=== PATIENT | female | born 1980 | race Caucasian/White ===

== ENCOUNTER 2024-01-15 20:25 | Emergency (ER) | payer OTHER, SELFPAY ==
[2024-01-15 20:29] VITALS: BP 108/84; PULSE 115; TEMP 37; O2SAT 97; BMI 33.5
--- NOTE | 2024-01-15 20:36 | XR_ITS ---
The [address] [address] Patient Name: JADA GRANADOS MRN: [id number] date: 1980 Sex: F Assigned Patient Location: ED.MAIN Current Patient Location: ED.MAIN Accession/Order Number: [id number] Exam Date: 01/15/2024 21:08 Report Date: 01/15/2024 22:47 At the request of: OSCAR KUHN Procedure: XR chest 1V EXAM: XR chest 1V HISTORY: Hyperglycemia COMPARISON: None FINDINGS/IMPRESSION: 1. Lungs are clear 2. No pneumothorax. No pleural effusion. 3. Heart size and mediastinal contours are normal 4. No acute osseous abnormality 5. Upper abdominal bowel gas pattern is nonspecific. Electronically authenticated by: ERIKA MADRID Date: 01/15/2024 22:47
--- NOTE | 2024-01-15 20:36 | ECG_ITS ---
The [facility] Test Date: 2024-01-15 Pat Name: JADA GRANADOS Department: Room: - Gender: Female Front Desk Team Member: : 1980 Requested By: Order Number: [id number] Reading MD: DEONTE LI Measurements Intervals [place] Rate: 97 P: 61 [place]: 152 QRS: 88 QRSD: 70 T: 60 QT: 338 QTc: 393 Interpretive Statements 1100 Sinus rhythm 9110 normal ECG No previous ECG available for comparison Electronically Signed On 01-16-2024 8:06:06 EDT by DEONTE LI
--- NOTE | 2024-01-15 20:38 | ED_ITS ---
HPI HPI - General Adult General Chief complaint: Abdominal Pain Stated complaint: HYPERGLYCEMIA, KIDNEY PROBLEMS Time Seen by Provider: 01/15/24 20:30 Source: patient Mode of arrival: walk-in Limitations: no limitations History of Present Illness HPI narrative: 43-year-old female presents for elevated blood sugar. She has been having this for several days despite taking her medication. Her back has been hurting and she is worried she might have a UTI. 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 No fever or chest pain or shortness of breath. No diarrhea. Related Data Home Medications ?Medication ?Instructions ?Recorded ?Confirmed dulaglutide 0.75 mg/0.5 mL 0.75 mg subcut QWEEK 01/15/24 01/15/24 subcutaneous pen injector (Trulicity) finerenone 20 mg tablet (Kerendia) 20 mg PO DAILY 01/15/24 01/15/24 insulin aspart U-100 100 unit/mL 1 sliding scale dose subcut 01/15/24 01/15/24 subcutaneous solution (Novolog USEASDIRECTD U-100 Insulin aspart) insulin glargine 100 unit/mL 30 unit subcut QPM 01/15/24 01/15/24 subcutaneous cartridge Allergies Allergy/AdvReac Type Severity Reaction Status Date / Time codeine AdvReac Intermediate Rash Verified 01/15/24 20:29 Opioid HPI Opioid Management Most Recent Opioid Data: No Data to Display Review of Systems ROS Narrative A ten point review of systems is negative except as noted above. Positive for polyuria and polydipsia Exam Narrative Exam Narrative: Nurses note and vital signs reviewed and patient is not hypoxic. General: The patient appears well and in no apparent distress. Patient is resting comfortably on cart. Skin: Warm, dry, no pallor noted. There is no rash noted. Head: Normocephalic, atraumatic Eye: Normal conjunctiva, no drainage Ears, Nose, Mouth, and Throat: oral mucosa is slightly dry. Nares patent. Cardiovascular: Regular Rate and Rhythm, mild tachycardia Respiratory: Patient is in no distress, no accessory muscle use, lungs are clear to auscultation, no wheezing, rales or rhonchi Back: non-tender GI: Soft and no apparent tenderness Musculoskeletal: The patient has no evidence of calf tenderness, no pitting edema, symmetrical pulses noted bilaterally Neurological: A&O, normal speech Psychiatric: Cooperative Constitutional Vital Signs, click to edit/add: Last Vital Signs Temp 98.6 F 01/15/24 20:29 Pulse 92 H 01/15/24 22:17 Resp 18 01/15/24 22:17 BP 113/75 01/15/24 22:17 Pulse Ox 95 01/15/24 22:17 O2 Del Method Room Air 01/15/24 20:29 Course Vital Signs Vital signs: Vital Signs Temperature 98.6 F 01/15/24 20:29 Pulse Rate 115 H 01/15/24 20:29 Respiratory Rate 18 01/15/24 20:29 Blood Pressure 108/84 01/15/24 20:29 Pulse Oximetry 97 01/15/24 20:29 Oxygen Delivery Method Room Air 01/15/24 20:29 Temperature 98.6 F 01/15/24 20:29 Pulse Rate 92 H 01/15/24 22:17 Respiratory Rate 18 01/15/24 22:17 Blood Pressure 113/75 01/15/24 22:17 Pulse Oximetry 95 01/15/24 22:17 Oxygen Delivery Method Room Air 01/15/24 20:29 Medical Decision Making MDM Narrative Medical decision making narrative: The patient presented with hyperglycemia. It is improved with IV fluids and IV regular insulin. No evidence of an infection. It turns out that she has been out of her long lasting insulin because her insurance company will not fill it until January 29. She is going to contact her PCP and her insurance company. Treatment diagnosis and follow-up were discussed with the patient. test was ordered prior to knowledge of hysterectomy. It was positive and an hCG titer is 7 which is physiologic. This was explained thoroughly to the patient. Differential Diagnosis Differential Diagnosis: Hyperglycemia, UTI, dehydration Lab Data Lab results reviewed: Yes I reviewed the patient's lab results Labs: Lab Results 01/15/24 01/15/24 01/15/24 Range/Units 20:37 20:40 23:14 WBC 9.6 (4.0-11.0) 10^3/uL RBC 5.03 (4.20-5.40) 10^6/uL Hgb 14.9 (12.0-16.0) g/dL Hct 45.3 (36.0-48.0) % MCV 90.1 (81.0-99.0) fL MCH 29.6 (26.7-34.0) pg MCHC 32.9 (29.9-35.2) g/dL RDW 13.4 (11.0-15.0) % Plt Count 371 (150-450) 10^3/uL MPV 11.6 (9.5-13.5) fL Neut % (Auto) 65.8 (43.0-75.0) % Lymph % (Auto) 26.4 (20.5-60.0) % [place] % (Auto) 6.0 (1.7-12.0) % Eos % (Auto) 0.9 (0.9-7.0) % Baso % (Auto) 0.7 (0.2-2.0) % Neut # (Auto) 6.3 (1.4-6.5) 10^3/uL Lymph # (Auto) 2.5 (1.2-3.8) 10^3/uL [place] # (Auto) 0.6 (0.3-0.8) 10^3/uL Eos # (Auto) 0.1 (0.0-0.7) 10^3/uL Baso # (Auto) 0.1 (0.0-0.1) 10^3/uL Abs Immat Gran (auto) 0.02 (0.00-0.03) 10^3/uL Imm/Tot Granulo (auto) 0.2 (0.0-0.5) % VBG pH 7.396 (7.330-7.430) VBG pCO2 52.2 H (40.0-52.0) mmHg Sodium 133 L (136-145) mmol/L Potassium 4.4 (3.5-5.1) mmol/L Chloride 93 L (98-107) mmol/L Carbon Dioxide 30.0 (21.0-32.0) mmol/L Anion Gap 14.4 BUN 25.0 H (7.0-18.0) mg/dL Creatinine 1.67 H (0.55-1.02) mg/dL Est GFR ( Amer) 40 L (>=60) Est GFR (Non-Af Amer) 33 L (>=60) BUN/Creatinine Ratio 15.0 Glucose 477 H (74-106) mg/dL Calcium 10.2 H (8.5-10.1) mg/dL Serum HCG, Qual Positive A (NEGATIVE) HCG, Quant 7 mIU/mL Urine Color Lt. yellow (YELLOW) Urine Clarity Clear (CLEAR) Urine pH 6.0 (5.0-9.0) Ur Specific [place] <=1.005 A (1.005-1.025) Urine Protein Negative (NEG/TRACE) mg/dL Urine Glucose (UA) >=1000 A (NEGATIVE) mg/dL Urine Ketones Negative (NEGATIVE) mg/dL Urine Occult Blood Negative (NEGATIVE) Urine Nitrite Negative (NEGATIVE) Urine Bilirubin Negative (NEGATIVE) Urine Urobilinogen 0.2 (0.2-1.0) EU/dL Ur Leukocyte Esterase Trace A (NEGATIVE) Urine RBC 2-5 A (0-2) #/HPF Urine WBC 0-2 A (NONE SEEN) #/HPF Ur Squamous Epith Cells Many A (NONE/RARE) #/LPF Urine Crystals Seen A (None Seen) #/HPF Amorphous Sediment Few Urine Bacteria None seen (NONE SEEN) #/HPF Urine Casts None seen (NONE SEEN) #/LPF Urine Mucus None seen (NONE SEEN) Ur Culture Indicated? No Acetone, Qual Small A (NEGATIVE) POC Glucose 282 H (74-106) mg/dL ECG Data Attestation: I personally reviewed and interpreted this ECG as follows: (EKG on my interpretation shows sinus rhythm without acute change and rate of 97.) Critical Care Time Critical Care Time Critical Care Time: Yes Total Critical Care Time: 35 Attestation: Due to the high probability of sudden and clinically significant deterioration in the patient's condition he/she required the highest level of my preparedness to intervene urgently I provided critical care time including documentation time, medication orders and management, reevaluation, vital sign assessment, ordering and reviewing of lab tests, ordering and reviewing of x-ray studies, and admission orders. Aggregate critical care time is 35 minutes including only time during which I was engaged in work directly related to his/her care and did not include time spent treating other patients simultaneously. Discharge Plan Discharge Stand Alone Forms: Portal Instructions Chief Complaint: Abdominal Pain Clinical Impression: Hyperglycemia Patient Disposition: Home, Self-Care Time of Disposition Decision: 23:22 Condition: Good Mode of Transportation: Private Vehicle Prescriptions / Home Meds: No Action Kerendia 20 mg tablet 20 mg PO DAILY insulin glargine 100 unit/mL cartridge 30 unit subcut QPM insulin aspart U-100 [Novolog U-100 Insulin aspart] 100 unit/mL solution 1 sliding scale dose subcut USEASDIRECTD Trulicity 0.75 mg/0.5 mL pen injector 0.75 mg subcut QWEEK Print Language: [place] Instructions: Diabetic Hyperglycemia (ED) Referrals: [facility] [Primary Care Provider] - 1 week
[2024-01-15 20:52] LABS: Basophils Absolute Auto 0.1 10^3/uL (0.0-0.1); Basophils Percent Auto 0.7 % (0.2-2.0); Eosinophils Absolute Auto 0.1 10^3/uL (0.0-0.7); Eosinophils Percent Auto 0.9 % (0.9-7.0); Hematocrit 45.3 % (36.0-48.0); Hemoglobin 14.9 g/dL (12.0-16.0); Immature Granulocytes Abs Auto 0.02 10^3/uL (0.00-0.03); Immature Granulocytes Pct Auto 0.2 % (0.0-0.5); Lymphocytes Absolute Auto 2.5 10^3/uL (1.2-3.8); Lymphocytes Percent Auto 26.4 % (20.5-60.0); Mean Corpuscular HGB Conc 32.9 g/dL (29.9-35.2); Mean Corpuscular Hemoglobin 29.6 pg (26.7-34.0); Mean Corpuscular Volume 90.1 fL (81.0-99.0); Mean Platelet Volume 11.6 fL (9.5-13.5); Monocytes Absolute Auto 0.6 10^3/uL (0.3-0.8); Neutrophils Absolute Auto 6.3 10^3/uL (1.4-6.5); Neutrophils Percent Auto 65.8 % (43.0-75.0); Platelet Count 371 10^3/uL (150-450); Red Blood Count 5.03 10^6/uL (4.20-5.40); Red Cell Distribution Width 13.4 % (11.0-15.0); White Blood Count 9.6 10^3/uL (4.0-11.0)
[2024-01-15 20:54] LABS: PCO2 VBG 52.2 mmHg (40.0-52.0); pH VBG 7.396 (7.330-7.430)
[2024-01-15] MEDS: 0.9 % SODIUM CHLORIDE 1,000 ML 1000 ML IV (20:54)
[2024-01-15] MEDS: ONDANSETRON PF 4 MG/2 ML VIAL IV (20:54)
[2024-01-15 21:02] VITALS: PULSE 95
[2024-01-15 21:07] LABS: Anion Gap 14.4; Calcium 10.2 mg/dL (8.5-10.1); Chloride 93 mmol/L (98-107); Estimated GFR (African America 40 (>=60); Estimated GFR (Non-African Ame 33 (>=60); Glucose 477 mg/dL (74-106); Potassium 4.4 mmol/L (3.5-5.1); Sodium 133 mmol/L (136-145)
[2024-01-15 21:08] LABS: Bilirubin Urine NEGATIVE (NEGATIVE); Blood Urine NEGATIVE (NEGATIVE); Clarity Urine CLEAR (CLEAR); Color Urine LT. YELLOW (YELLOW); Glucose Urine UA >=1000 mg/dL (NEGATIVE); Ketones Urine NEGATIVE (NEGATIVE); Leukocyte Esterase Urine TRACE (NEGATIVE); Nitrite Urine NEGATIVE (NEGATIVE); Protein Urine NEGATIVE (NEG/TRACE); Specific Gravity Urine <=1.005 (1.005-1.025); Urobilinogen Urine 0.2 EU/dL (0.2-1.0)
[2024-01-15 21:10] LABS: Acetone SMALL (NEGATIVE); HCG Qualitative POSITIVE (NEGATIVE)
[2024-01-15 21:14] LABS: Bacteria Urine NONE SEEN #/HPF (NONE SEEN); Crystals Seen? Seen #/HPF (None Seen); Mucus Urine NONE SEEN (NONE SEEN); Squamous Epithelial Cell Urine MANY #/LPF (NONE/RARE); WBC Urine 0-2 #/HPF (NONE SEEN)
[2024-01-15 21:15] LABS: Amorphous Sediment Urine FEW; Cast Seen? NONE SEEN #/LPF (NONE SEEN); Urine Culture Indicated NO
[2024-01-15 21:44] LABS: HCG Quantitative 7 mIU/mL
[2024-01-15] MEDS: INSULIN REGULAR 300 UNITS/3 ML 10 UNIT IV (22:00)
[2024-01-15 22:17] VITALS: BP 113/75; PULSE 92; O2SAT 95
[2024-01-15 23:15] LABS: Glucometer 282 mg/dL (74-106)
[2024-01-15 23:27] VITALS: BP 104/66; PULSE 92; O2SAT 96
== END 2024-01-15 23:29 | disposition home or self-care (01) ==
PROVIDERS: Emergency Provider Emergency Medicine
DX: R73.9 Hyperglycemia, unspecified (principal); Z79.4 Long term (current) use of insulin; Z79.85 Long-term (current) use of injectable non-insulin antidiabetic drugs; R10.9 Unspecified abdominal pain
CPT/HCPCS: 36415; 36416; 71045; 80048; 81001; 82009; 82800; 82948; 84702; 84703; 85025; 93005; 96374; 99285

== ENCOUNTER 2024-02-05 18:13 | Emergency (ER) | payer OTHER, SELFPAY ==
[2024-02-05] VITALS (21 sets, daily range): BP systolic 111–138; BP diastolic 79–109; PULSE 83–100; TEMP 36.7; O2SAT 93–98; BMI 33.8
--- OUTSIDE RECORDS SUMMARY | 2024-02-05 18:25 | XMS_ITS ---
Patient Summarization (C-CDA 2.1 CCD) Created on: February 05, 2024 JADA GRANADOS : 1980 Sex: Female Author Organization Sample organization Care Team Providers Care Coffee Taster Name Role Phone Unavailable Primary Care Provider BHANU Reynolds Primary Care Physician BHANU, PAVEL CASAREZRG Unavailable Unavailab Christal Martins Unavailable Sivakumar Galeano Unavailable Ami Mcarthur Unavailable Unavailable Christina Ramos Unavailable Unavailable ANDREI RADER Attending Unavailable PROVIDER, UNKNOWN Admitting Unavailable PROVIDER, UNKNOWN Attending Unavailable PROVIDER, UNKNOWN Admitting Unavailable Srinivas Fragoso Unavailable Unavailable Vero Matos Unavailable Olinda Castillo Unavailable Unavailable Kee Swan Unavailable Unavailable DO JESUS ALBERTO ECHEVARRIA Attending Unava ilable Bhanu, . Zhaolast De Oliveira Primary Care Unava ilable Reji Rivera Admitting Unavailable Reji Rivera Referring Unavailable [facility], Dr. Steve Ferrer Admitting Un available Dr. Steve Wall Referring Un available Kijacob, . Zhao C[facility] Unava ilChristal Suero Attending Unavailable Bhanu, . Zhao Crmaria [facility] Unava ilable Daylin, Dr. Araujo Admitting Unava ilable Daylin, Dr. Araujo Referring Unava ilable Dr. Rachel Pardo Attending UnavailDr. Kee Beck Attending Unavaila rian Castillo, Olinda Oliva Primary Care Un available Bhanu, . Zhaolast [facility] Unava ilable Dr. Srinivas Fragoso Attending UnavailOlinda Mckeon Unavailable Bhanu Mar W Unavailable Unavailable Unavailable Bhanu, [facility] Primary [facility] Unavailab CHRISTINA Singh Attending Unavailable Anna, Ms. Olinda Baptiste Primary Care Un available Froylan Shy Attending Unavailable Froylan, Shy Referring Unavailable Soviak, Mr. Florentinojacob Banks Primary Care Unavaila ble Sivakumar Galeano Referring Unavailable Shy Galeano Attending Unavailable MD VERO MATOS Attending Unavailable Soviak, Mr. Bhanu Banks Primary Care Unavaila ble Coleman Drummondlplast [facility] Unavailab CHRISTINA Singh Attending Unavailable CHRISTINA RAMOS Referring Unavailable OLINDA CASTILLO Primary Care Physician OLINDA CASTILLO Admitting Unavailable OLINDA CASTILLO Primary Care Unavailable OLINDA CASTILLO Attending Unavailable SOVIJOSE ALEJANDRO, BHANU BANKS Admitting Unavailable SOVIAK, BHANU BANKS Attending Unavailable Srinivas Easley Attending Unavailable Kaushal, Srinivas Admitting Unavailable Kaushal, Srinivas Attending Unavailable Caputo, Basem GNoah Admitting Unavailable Caputo Basem GNoah Attending Unavailable SOVIAK, BHANU BANKS Referring Unavailable Hailey Holman Attending Unavailable SOVIAK, BHANU BANKS Referring Unavailable Caputo, Basem GNoah Attending Unavailable SOVIAK, BHANU BANKS Attending Unavailable SOVIAK, BHANU BANKS Admitting Unavailable SOVIAK, BHANU BANKS Admitting Unavailable SOVIAK, BHANU BANKS Attending Unavailable ARIES JONES Attending Unavailable Allergies Allergy Classification Reported Allergen(s) Allergy Type Date of Onset Reaction(s) Facility (18 sources) Codeine; Translations: [codeine] Drug Allergy 10-02-2022 Hives, Eruption of skin (disorder) [facility] Encounters Encounter Date Encounter Type Care Provider Facility Start: 01-06-2024 End: 01-06-2024 ambulatory ARIES JONES Not Available Start: 10-12-2023 End: 10-31-2023 Pre-admission assessment OLINDA CASTILLO [facility] Start: 10-07-2023 End: 10-08-2023 ambulatory OLINDA CASTILLO Facility:[facility] Start: 10-07-2023 End: 10-07-2023 Patient encounter procedure OLINDA J ANNA [facility] Start: 09-28-2023 End: 09-28-2023 Emergency department patient visit Srinivas Easley Facility:[facility] Start: 09-28-2023 End: 09-28-2023 Emergency department patient visit Srinivas Easley [facility] Start: 04-16-2023 ambulatory MD VERO MATOS [facility] ity:[facility] Start: 04-08-2023 ambulatory Mr. Bhanu Mar Facility:[id number] Start: 03-04-2023 ambulatory Ms. Olinda Castillo Facility:[id number] Start: 03-04-2023 Chart Update Bhanu Mar Work Phone: [facility] 3 DO Work Phone: Start: 03-02-2023 End: 06-01-2023 ambulatory BHANU HEAVEN MAR Facility:[facility] Start: 03-02-2023 End: 05-31-2023 Recurring Lissette Bowden [facility] Start: 02-27-2023 AUDIT Olinda doll Work Phone: [facility] 3 DO Work Phone: Start: 02-10-2023 End: 02-10-2023 Emergency department patient visit Kee Swan [facility] Emergency 13 Start: 01-30-2023 End: 01-31-2023 ambulatory BHANU MAR Facility:[facility] Start: 01-30-2023 End: 01-30-2023 Patient encounter procedure Tera Caputo [facility] Start: 01-26-2023 ambulatory Pavel [place] acility:[id number] Start: 01-19-2023 End: 01-19-2023 Emergency department patient visit Srinivas Fragoso [facility] Emergency 04 Start: 01-16-2023 End: 01-17-2023 ambulatory BHANU MAR Facility:[facility] Start: 01-16-2023 End: 01-16-2023 Patient encounter procedure [facility] Start: 01-13-2023 End: 01-14-2023 ambulatory [facility] Facility:[facility] Start: 01-13-2023 End: 01-13-2023 Lab Drop off [facility] Start: 01-13-2023 End: 01-14-2023 ambulatory [facility] Facility:[facility] Start: 01-13-2023 End: 01-13-2023 Patient encounter procedure [facility] Start: 12-10-2022 Chart Update Christina jernigan MD, MPH Work Phone: [facility] Work Phone: Start: 12-09-2022 ambulatory Tera Caputo Facilit y:[facility] Start: 12-08-2022 ambulatory Zhao Kanumaria teresaaleenaedouard Bhanu F acility:[id number] Start: 11-30-2022 End: 12-06-2022 Evaluation and management of inpatient Ms. Zhao Alvino Bhanu Facility:[id number] Start: 11-28-2022 AUDIT Christina jernigan MD, MPH Work Phone: RD-Jyodkbx-Tkoxiza Work Phone: Start: 11-21-2022 Chart Update Christina jernigan MD, MPH Work Phone: TG-Ebugdjl-Lsloqpf Work Phone: Start: 11-11-2022 End: 11-16-2022 Evaluation and management of inpatient Dr. Steve Wall Facility:[id number] Start: 11-10-2022 End: 11-16-2022 Evaluation and management of inpatient Christal Rabago [facility] 3 Med [facility]urg [facility] 315 [id number] Start: 11-07-2022 End: 11-07-2022 Emergency department patient visit Srinivas Easley Facility:[facility] Start: 11-07-2022 End: 11-07-2022 Emergency department patient visit Srinivas Easley [facility] Start: 10-14-2022 End: 10-15-2022 Emergency department patient visit DO JESUS ALBERTO COTA DAMIANKAREN Facility:[id number] Start: 10-10-2022 Emergency department patient visit UNKNOWN PROVIDER Facility:[facility] Start: 10-09-2022 End: 10-10-2022 Emergency department patient visit ANDREI RADER Facility:[facility] Start: 10-09-2022 End: 10-10-2022 Emergency department patient visit Andrei Rader MD Work Phone: [facility] Emergency Department Comment on above: Chart (Pt states her blood glucose has been >300 x2 weeks, and today she developed chest pain in the center of her chest. She has been in touch with her PCP and they are adjusting her insulin and metformin but she was advised to come to the ED d/t the high glucose and chest pain. States she had a stroke in August 2021 and does have some deficits such as slurred speech, neuropathy, vision changes. VSS. States some SOB intermittently. ) Medical Equipment Procedure Code Equipment Code Equipment Origin al Text Equipment Identifier Dates glucometer ; 1 u nit(s) subcutaneous 4 times a day DX - insulin dependent DMM IIAccuchek strips and lancets as well Quantity: 1 Refills: 0 Ordered: 17-Oct-2022 Steve Wall Start: 17-Oct-2022 Generic Substitution Allowed [id number] Start: 10-17-2022 Blood Glucose In Vitro Test Strips (100 each) ; 1 strip(s) intradermal 4 times a day Quantity: 150 Refills: 0 Ordered: 06-Dec-2022 Riri Najera Start: 06-Dec-2022 End: 04-Jan-2023 Generic Substitution Allowed [id number] Start: 12-06-2022 End: 01-04-2023 Medications Current Medications Medication Drug Class(es) Dates Sig (Normalized) Sig (Original) acetaminophen 325 mg / HYDROcodone bitartrate 5 mg oral tablet (1 source) Opioid Agonist Start: 11-16-2022 End: 11-17-2022 take 1 tablet by mouth three times daily as needed hydrocodone-acetam inophen 5 mg-325 mg oral tablet ; 1 tab(s) orally 3 times a day as needed Quantity: 6 Refills: 0 Ordered: 16-Nov-2022 Christal Rabago Start: 16-Nov-2022 End: 17-Nov-2022 Generic Substitution Allowed Comments: Caution federal law prohibits the transfer of this drug to any person other than the person for whom it was prescribed.May cause drowsiness. Alcohol may intensify this effect. Use care when operating dangerous machinery.This product contains acetaminophen. Do not use with any other product containing acetaminophen to prevent possible liver damage.Using more of this medication than prescribed may cause serious breathing problems. Comment on above: Caution [place] law prohibits the transfer of this drug to any person other than the person for whom it was prescribed.May cause drowsiness. Alcohol may intensify this effect. Use care when operating dangerous machinery.This product contains acetaminophen. Do not use with any other product containing acetaminophen to prevent possible liver damage.Using more of this medication than prescribed may cause serious breathing problems. atorvastatin 20 mg oral tablet (14 sources) HMG-CoA Reductase Inhibitor Start: 10-17-2022 take 1 tablet by mouth once daily atorvastatin 20 mg Tab 20 mg = 1 tab(s), Oral, Daily, # 30 tab(s), Refills(s) 0 Start Date: 11/07/22 Status: Ordered 24 hr buPROPion hydrochloride 300 mg extended release oral tablet (14 sources) Aminoketone Start: 10-17-2022 take 1 tablet by mouth once daily buPROPion 300 mg/24 hours ER Tab 300 mg = 1 tab(s), Oral, Daily, # 30 tab(s), Refills(s) 0 Start Date: 11/07/22 Status: Ordered Start: 10-17-2022 take 1 tablet by miguel angel every twenty-four hours Wellbutrin XL 300 mg/24 hours oral tablet, extended release ; 1 tab(s) orally every 24 hours Quantity: 30 Refills: 0 Ordered: 17-Oct-2022 [facility] bedolla Evangelista Start: 17-Oct-2022 Generic Substitution Allowed cephalexin 500 mg oral capsule (1 source) Cephalosporin Antibacterial Start: 11-07-2022 End: 11-14-2022 take 1 capsule by mouth every twelve hours Keflex 500 mg Cap 500 mg = 1 cap(s), Oral, q12hr, X 7 day(s), # 14 cap(s), Refills(s) 0 Start Date: 11/07/22 Stop Date: 11/14/22 Status: Ordered ciprofloxacin 500 mg oral tablet (1 source) Quinolone Antimicrobial Start: 11-16-2022 End: 11-18-2022 take 1 tablet by mouth twice daily Cipro 500 mg oral tablet ; 1 tab(s) orally 2 times a day Quantity: 6 Refills: 0 Ordered: 16-Nov-2022 Christal Rabago Start: 16-Nov-2022 End: 18-Nov-2022 Generic Substitution Allowed Comments: Avoid prolonged or excessive exposure to direct and/or artificial sunlight while taking this medication.Check with your doctor before becoming .Do not take dairy products, antacids, or iron preparations within one hour of this medication.Finish all this medication unless otherwise directed by prescriber.Medica tion should be taken with plenty of water. Comment on above: Avoid prolonged or e xcessive exposure to direct and/or artificial sunlight while taking this medication.Check with your doctor before becoming .Do not take dairy products, antacids, or iron preparations within one hour of this medication.Finish all this medication unless otherwise directed by prescriber.Medication should be taken with plenty of water. doxycycline hyclate 100 mg oral tablet (1 source) Tetracycline-class Drug Start: 01-15-2023 End: 01-22-2023 DOXYCYCLINE HYCLATE 100 MG TAB ; 1 tab(s) orally 2 times a day for 7 days Quantity: 0 Refills: 0 Ordered: 19-Jan-2023 Maricruz Sam Start: 15-Jan-2023 End: 22-Jan-2023 Generic Substitution Allowed Comments: Source=Surescript s, Medication=DOXYCY KEITH HYCLATE 100 MG TAB, OriginatingSource =[facility] OriginatingProvid er=SOFLORENTINO PARHAMJacob, Duration=7, Date Last Modified/Filled=05-Jan-2023 Comment on above: Source=Surescripts, Medication=DOXYCYCLINE HYCLATE 100 MG TAB, OriginatingSource=[facility] OriginatingProvider=SOVIAK, KIP, Duration=7, Date Last Modified/Filled=15-Jan-2023 DULoxetine 60 mg delayed release oral capsule (1 source) Serotonin and Norepinephrine Reuptake Inhibitor duloxetine (Cymbalta) 60 MG capsule 1 capsule 0 Active FLUoxetine 20 mg oral capsule (14 sources) Serotonin Reuptake Inhibitor Start: 10-17-2022 take 3 capsules by mouth once daily FLUoxetine 20 mg Cap 60 mg = 3 cap(s), Oral, Daily, Refills(s) 0 Start Date: 11/07/22 Status: Ordered take 3 tablets by mouth once daniel ly FLUoxetine HCl - 20 MG Oral Tablet TAKE 3 TABLET Daily Quantity: 0 Refills: 0 Ordered: 04-Mar-2023 DO Active fluoxetine (PROZ AC) 20 MG capsule one capsule 0 Active 60 actuat fluticasone propionate 0.232 mg/actuat / salmeterol xinafoate 0.014 mg/actuat dry powder inhaler (9 sources) Corticosteroid, beta2-Adrenergic Agonist Start: 11-07-2022 take 1 puff(s) by inhalation twice daily fluticasone-salmeterol 232 mcg-14 mcg/inh inhalation powder 1 puff(s), Inhalation, BID, Refill(s) 0 Start Date: 11/07/22 Status: Ordered fosfomycin 3000 mg powder for oral solution (8 sources) Start: 11-10-2022 fosfomycin 3 g oral granule for reconstitution 3 gm = 1 EA, Oral, q48hr, # 3 EA, Refills(s) 0, Pharmacy: [facility]/pharmacy #[id number], 162.6, cm, 11/07/22 9:23:00 EST, Height/Length Dosing, 98, kg, 11/07/22 9:23:00 EST, Weight Dosing Start Date: 11/10/22 Status: Ordered hydroCHLOROthiazide 12.5 mg / losartan potassium 50 mg oral tablet (1 source) Thiazide Diuretic, Angiotensin 2 Receptor Kristen take 1 tablet by mouth once daily losartan-hydrochlorothi azide 50 mg-12.5 mg oral tablet ; 1 tab(s) orally once a day Quantity: 0 Refills: 0 Ordered: 10-Feb-2023 Maricruz Sam Generic Substitution Allowed hydrOXYzine hydrochloride 50 mg oral tablet (13 sources) Antihistamine Start: 11-07-2022 take 1 tablet by mouth four times daily as needed for anxiety hydrOXYzine hydrochloride 50 mg oral tablet 50 mg = 1 tab(s), Oral, QID, PRN as needed for anxiety, Refills(s) 0 Start Date: 11/07/22 Status: Ordered take 1 tablet by miguel angel three times daily as needed hydrOXYzine HCl - 50 MG Oral Tablet TAKE 1 TABLET 3 times daily PRN Quantity: 0 Refills: 0 Ordered: 04-Mar-2023 DO Active insulin aspart, human 100 unt/ml injectable solution (12 sources) Insulin Analog Start: 11-07-2022 NovoLOG 100 un its/mL injectable solution 4 unit(s), SubCutaneous, TIDAC, Refills(s) 0 Start Date: 11/07/22 Status: Ordered Insulin Aspart F lexPen 100 UNIT/ML Subcutaneous Solution Pen-injector INJECT 15 UNIT 3 times daily Quantity: 0 Refills: 0 Ordered: 04-Mar-2023 DO Active INS ASPART FLEXP 100UML 15 ; 10 unit(s) injectable 3 times a day Quantity: 0 Refills: 10 Ordered: 10-Feb-2023 Maricruz Sam Generic Substitution Allowed Comments: Source=Surescripts, Medication=INS ASPART FLEXP 100UML 15, OriginatingSource=[facility], OriginatingProvider=BHANU MAR, Duration=50, Refills=10, Date Last Modified/Filled=09-Jan-2023 insulin aspart ( NovoLOG) 100 UNIT/ML injection as directed 0 Active Comment on above: Source=S[place]cripts, Medication=INS ASPART FLEXP 100UML 15, OriginatingSource=[facility], OriginatingProvider=BHANU MAR, Duration=50, Refills=10, Date Last Modified/Filled=09-Jan-2023 insulin glargine 100 unt/ml injectable solution (14 sources) Insulin Analog Start: 11-07-2022 Lantus 100 units/mL Injection-Insuli n 45 - 50 unis(s), SubCutaneous, Once a day (at bedtime), Refills(s) 0 Start Date: 11/07/22 Status: Ordered Start: 10-17-2022 inject 10 [IU] by mayen bcutaneous injection once at bedtime insulin glargine 100 units/mL subcutaneous solution ; 10 unit(s) subcutaneous once (at bedtime) Quantity: 0 Refills: 5 Ordered: 10-Feb-2023 Maricruz Sam Start: 17-Oct-2022 Generic Substitution Allowed Start: 10-17-2022 inject 40 [IU] by mayen bcutaneous injection once at bedtime insulin glargine 100 units/mL subcutaneous solution ; 40 unit(s) subcutaneous once (at bedtime) Quantity: 10 Refills: 5 Ordered: 17-Oct-2022 Steve Wall Start: 17-Oct-2022 Generic Substitution Allowed Start: 10-17-2022 inject 40 [IU] by mayen bcutaneous injection once at bedtime insulin glargine 100 units/mL subcutaneous solution ; 40 unit(s) subcutaneous once (at bedtime) Quantity: 10 Refills: 5 Ordered: 17-Oct-2022 Steve Wall Start: 17-Oct-2022 Generic Substitution Allowed inject 35 [IU] by mayen bcutaneous injection at bedtime Insulin Glargine 100 UNIT/ML Subcutaneous Solution INJECT 35 UNIT Bedtime Quantity: 0 Refills: 0 Ordered: 04-Mar-2023 DO Active Insulin Glargine Solostar 100 UNIT/ML SOPN as directed 0 Active lisinopril 20 mg oral tablet (1 source) Angiotensin Converting Enzyme Inhibitor lisinopril (ZESTRIL) 20 MG tablet 1 Tablet. 0 Active losartan potassium 25 mg oral tablet (12 sources) Angiotensin 2 Receptor Kristen Start: 11-08-19 take 1 tablet by mouth once daily losartan 25 mg Tab 25 mg = 1 tab(s), Oral, Daily, # 30 tab(s), Refills(s) 0 Start Date: 11/07/22 Status: Ordered metoclopramide 10 mg oral tablet (1 source) Dopamine-2 Receptor Antagonist Start: 09-28-19 End: 10-05-19 24 take 1 tablet by mouth four times daily Reglan 10 mg Tab 10 mg = 1 tab(s), Oral, QID, X 7 day(s), # 28 tab(s), Refills(s) 0, Pharmacy: [facility]/pharmacy #[id number], 162, cm, 09/28/23 14:32:00 EST, Height/Length Dosing, 89.2, kg, 09/28/23 14:32:00 EST, Weight Dosing Start Date: 09/28/23 Stop Date: 10/05/23 Status: Ordered naloxone hydrochloride 40 mg/ml nasal spray (4 sources) Opioid Antagonist Start: 11-17-19 naloxone 4 mg/0.1 mL nasal spray ; 4 milligram(s) intranasally once a day if needed for overdose Quantity: 1 Refills: 0 Ordered: 16-Nov-2022 Christal Rabago Start: 16-Nov-2022 Generic Substitution Allowed Comments: For the nose. Naloxone HCl - 4 MG/0.1ML Nasal Liquid INHALE 4 MG PRN Quantity: 0 Refills: 0 Ordered: 04-Mar-2023 DO Active Comment on above: For the nose. pantoprazole 40 mg delayed release oral tablet (13 sources) Proton Pump Inhibitor Start: 3 take 1 tablet by mouth once daily Pantoprazole [address] Tab 40 mg = 1 tab(s), Oral, Daily, Refills(s) 0 Start Date: 11/07/22 Status: Ordered prazosin 1 mg oral capsule (13 sources) alpha-Adrenergic Kristen Start: 3 take 3 capsules by mouth at bedtime prazosin 1 mg Cap 3 mg = 3 cap(s), Oral, Bedtime, Refills(s) 0 Start Date: 11/07/22 Status: Ordered take 1 capsule by mouth once daniel ly Prazosin HCl - 1 MG Oral Capsule TAKE 1 CAPSULE Daily Quantity: 0 Refills: 0 Ordered: 04-Mar-2023 DO Active pregabalin 100 mg oral capsule (14 sources) Start: 11-07-2022 take 1 capsule by mouth three times daily pregabalin 100 mg Cap 100 mg = 1 cap(s), Oral, TID, Refills(s) 0 Start Date: 11/07/22 Status: Ordered Start: 10-17-2022 Lyrica 100 mg oral capsule ; 1 cap(s) orally 3 times a day- Patient filled 30 day suppply 06/2022 Quantity: 90 Refills: 0 Ordered: 17-Oct-2022 Steve Wall Evangelista Start: 17-Oct-2022 Generic Substitution Allowed tamsulosin hydrochloride 0.4 mg oral capsule (3 sources) alpha-Adrenergic Kristen Start: 01-13-2023 TAMSULOSIN HCL 0.4 MG CAPSUL E ; 1 cap(s) orally once a day Quantity: 0 Refills: 0 Ordered: 19-Jan-2023 Maricruz Sam Start: 13-Jan-2023 Generic Substitution Allowed Comments: Source=Surescripts, Medication=TAMSULOSIN HCL 0.4 MG CAPSULE, Duration=30, Date Last Modified/Filled=13-Jan-2023 Comment on above: Source=Surescripts, Medication=TAMSULOSI N HCL 0.4 MG CAPSULE, Duration=30, Date Last Modified/Filled=13-Jan-2023 Zofran ODT 4 mg Tab-Dis (9 sources) Start: 11-07-2022 take 1 tablet by mouth three times daily Zofran ODT 4 mg Tab-Dis 4 mg = 1 tab(s), Oral, TID, # 15 tab(s), Refills(s) 0 Start Date: 11/07/22 Status: Ordered Completed/Discontinued Medications Medication Drug Class(es) Dates Sig (Normalized) Sig (Original) dapagliflozin 10 mg oral tablet (2 sources) Sodium-Glucose Cotransporter 2 Inhibitor take 1 tablet by mouth once daily Farxiga 10 MG Oral Tablet Take 1 tablet daily Quantity: 0 Refills: 3 Ordered: 04-Mar-2023 DO Active glucagon (rdna) 1 mg injection (4 sources) Antihypoglycemic Agent GlucaGen 1 MG SOLR USE DIRECTED. Quantity: 0 Refills: 0 Ordered: 04-Mar-2023 DO Active GlucaGen 1 mg in jection ; As needed for low blood sugar Quantity: 0 Refills: 0 Ordered: 15-Oct-2022 Maricruz Miner Generic Substitution Allowed insulin lispro 100 unt/ml injectable solution (1 source) Insulin Analog Start: 10-10-2022 End: 10-10-2022 insulin lispro (HumaLOG) 100 UNIT/ML injection Start: 10-10-2022 End: 10-10-2022 insulin lispro (HumaLOG) 100 UNIT/ML injection 1 ml ketorolac tromethamine 30 mg/ml cartridge (1 source) Nonsteroidal Anti-inflammatory Drug, Cyclooxygenase Inhibitor Start: 10-10-2022 End: 10-10-2022 ketorolac (TORADOL) 30 MG/ML injection Start: 10-10-2022 End: 10-10-2022 ketorolac (TORADOL) 30 MG/ML injection lurasidone hydrochloride 40 mg oral tablet (3 sources) Atypical Antipsychotic take 1 tablet by mouth once daily Latuda 40 MG Oral Tablet Take 1 tablet daily Quantity: 0 Refills: 0 Ordered: 04-Mar-2023 DO Active Comment on above: Source=[place], Medication=LURASIDONE HCL 40 MG TABLET, Duration=30, Date Last Modified/Filled=13-Jan-2023 metFORMIN hydrochloride 500 mg oral tablet (15 sources) Biguanide Start: 12-09-19 metFORMIN HCl - 500 MG Oral Tablet Quantity: 0 Refills: 0 Ordered: 08-Dec-2022 DO Start : 08-Dec-2022 Active Start: 10-17-2022 take 1 tablet by miguel angel twice daily metformin 500 mg Tab 500 mg = 1 tab(s), Oral, BID, # 180 tab(s), Refills(s) 0 Start Date: 11/07/22 Status: Ordered metformin (GLUCO PHAGE) 500 MG tablet 1 tablet with a meal 0 Active 24 hr metoprolol succinate 25 mg extended release oral tablet (4 sources) beta-Adrenergic Kristen take 1 tablet by mouth once daily Metoprolol Succinate ER 25 MG Oral Tablet Extended Release 24 Hour TAKE 1 TABLET DAILY. Quantity: 90 Refills: 3 Ordered: 04-Mar-2023 DO Active ondansetron 4 mg oral tablet (2 sources) Serotonin-3 Receptor Antagonist Zofran 4 MG TABS DAVY E 1 TABLET 3 times daily PRN nausea Quantity: 0 Refills: 0 Ordered: 04-Mar-2023 DO Active ONDANSETRON ODT 4 MG TABLET ; 1 tab(s) sublingually 3 times a day, As Needed Quantity: 0 Refills: 3 Ordered: 10-Feb-2023 Maricruz Sam Generic Substitution Allowed Comments: Source=[place], Medication=ONDANSETRON ODT 4 MG TABLET, OriginatingSource=[facility] OriginatingProvider=BHANU MAR, Duration=30, Refills=3, Date Last Modified/Filled=06-Jan-2023 Comment on above: Source=[place], Medication=ONDANSETRON ODT 4 MG TABLET, OriginatingSource=[employer], OriginatingProvider=BHANU MAR, Duration=30, Refills=3, Date Last Modified/Filled=06-Jan-2023 oxybutynin chloride 5 mg oral tablet (2 sources) Cholinergic Muscarinic Antagonist take 1 tablet by mouth once daily Oxybutynin Chloride 5 MG Oral Tablet Take 1 tablet daily Quantity: 0 Refills: 1 Ordered: 04-Mar-2023 DO Active OXYBUTYNIN ER 5M G TAB ; 1 tab(s) orally once a day Quantity: 0 Refills: 1 Ordered: 10-Feb-2023 Maricruz Sam Generic Substitution Allowed Comments: Source=[place], Medication=OXYBUTYNIN ER 5MG TAB, OriginatingSource=[facility], OriginatingProvider=Bhanu Mar, Duration=30, Refills=1, Date Last Modified/Filled=28-Jan-2023 Comment on above: Source=[place], Medication=OXYBUTYNIN ER 5MG TAB, OriginatingSource=[facility], OriginatingProvider=Bhanu Mar, Duration=30, Refills=1, Date Last Modified/Filled=28-Jan-2023 phenazopyridine hydrochloride 100 mg oral tablet (1 source) Star t: 09-26 End: 03-26 23 take 1 tablet by mouth three times daily after mealtime phenazopyridine 100 mg oral tablet ; 1 tab(s) orally 3 times a day (after meals) Quantity: 21 Refills: 0 Ordered: 06-Dec-2022 Riri Najera Start: 06-Dec-2022 End: 12-Dec-2022 Generic Substitution Allowed QUEtiapine 25 mg oral tablet (2 sources) Atypical Antipsychotic take 1 tablet by mouth at bedtime SEROquel 25 MG Oral Tablet TAKE 1 TABLET AT BEDTIME. Quantity: 0 Refills: 0 Ordered: 04-Mar-2023 DO Active Comment on above: Source=Sureyanrifiordaliza, Medication=QUETIAPINE 25MG TABLET, OriginatingSource=[facility], OriginatingProvider=Bhanu Mar, Duration=30, Refills=10, Date Last Modified/Filled=29-Jan-2023 50 ml sodium chloride 9 mg/ml injection (1 source) Star t: 11-24 End: 11-24 sodium chloride 0.9 % iv bolus traMADol hydrochloride 50 mg oral tablet (3 sources) Opioid Agonist Star t: 01-05 End: 01-06 TRAMADOL HCL 50 MG TABLET ; 1 tab(s) orally 4 times a day, As Needed - for pain Quantity: 0 Refills: 0 Ordered: 19-Jan-2023 Maricruz Sam Start: 15-Jan-2023 End: 25-Jan-2023 Generic Substitution Allowed Comments: Source=[place], Medication=TRAMADOL HCL 50 MG TABLET, Duration=10, Date Last Modified/Filled=Jan-2023 take 1 tablet by miguel angel th every six hours as needed for pain traMADol HCl - 50 MG Oral Tablet TAKE 1 TABLET EVERY 6 HOURS NEEDED FOR PAIN. Quantity: 120 Refills: 0 Ordered: 04-Mar-2023 DO Active Comment on above: Source=[place], Medication=TRAMADOL HCL 50 MG TABLET, Duration=10, Date Last Modified/Filled=16-Jan-2023 Payers Date Payer Category Payer Unknown [id number] 2022 Unknown [id number] 2022 Medicaid [id number] 1978 Unknown [id number] 2.16. [id number]. 1978 Unknown [id number] 2.16. 840.1.301404.3.579.2. 1978 Unknown [id number] 2.16.8 40.1.321228.3.579.2.1068 1978 Unknown [id number] 2.16.8 40.1.324253.3.579.2.1068 1978 Unknown [id number] 2.16.8 40.1.985397.3.579.2.1069 1978 Unknown [id number] 2.16.8 40.1.299956.3.579.2.9 1978 Unknown [id number] 2.16.8 40.1.583213.3.579.2.9 1978 Unknown [id number] 2.16. 840.1.618948.3.579.2.356 1978 Unknown [id number] 2.16. 840.1.236486.3.579.2.356 1978 Unknown [id number] 2.16. 840.1.677390.3.579.2.356 1978 Unknown [id number] 2.16. 840.1.744513.3.579.2.356 1978 Unknown [id number] 2.16. 840.1.251051.3.579.2. 1978 Unknown [id number] 2.16.8 40.1.522746.3.579.2. 1978 Unknown [id number] 2.16.8 40.1.860381.3.579.2 1978 Unknown [id number] 2.16.8 40.1.200532.3.579.2. 1978 Unknown [id number] 2.16.8 40.1.493193.3.579.2. 1978 Unknown [id number] 2.16.8 40.1.302692.3.579.2. 1978 Unknown [id number] 2.16.8 40.1.866229.3.579.2. 1978 Unknown [id number] 2.16.8 40.1.380461.3.579.2. 1978 Unknown [id number] 2.16.8 40.1.092183.3.579.2. 1978 Unknown [id number] 2.16.8 40.1.870444.3.579.2.727 Medicaid [id number] Plan of Treatment Date Care Activity Detail Author Start: 2028 Shingles (RZV) Vacci ne (1 of 2) Shingles (RZV) Vaccine (1 [facility] 2) [facility] Start: 04-16-2023 NPV, Provider: Vero Matos, Status: Pen, Time: 10:40 AM NPV, Provider: Vero Matos, Status: Pen, Time: 10:40 AM [facility] Work Phone: Start: 04-16-2023 Patient encounter procedure [facility] Start: 03-19-2023 FUV, Provider: Sivakumar Galeano, Status: Pen, Time: 10:00 AM FUV, Provider: Sivakumar Galeano, Status: Pen, Time: 10:00 AM [facility] Solomon 3 DO Work Phone: Start: 03-04-2023 NPV, Provider: Shy Galeano, Status: Pen, Time: 11:00 AM NPV, Provider: Shy Galeano, Status: Pen, Time: 11:00 AM [facility] Solomon 3 DO Work Phone: Start: 01-22-2023 Patient encounter procedure [facility] Start: 12-03-2022 Past history of procedure Status post cystoscopy Date: 03-Dec-2022 Comments: R RPg stent removal [facility] Comment on above: R RPg stent removal Start: 11-24-2022 FUV, Provider: Christina Ramos, Status: Pen, Time: 2:45 PM FUV, Provider: Christina Ramos, Status: Pen, Time: 2:45 PM [facility] Work Phone: Start: 11-24-2022 Patient encounter procedure [facility] Start: 11-14-2022 End: 11-15-2023 [facility] Comment on above: Karol-operative or wellington ONLYMax total of 4 mg regardless of dose. Karol-operative or wellington ONLY DO NOT ADMINISTER UN TIL PHYSiCIAN HAS BEEN NOTIFIED AND ASSESSED PATIENT Start: 11-11-2022 End: 11-12-2023 [facility] Comment on above: May repeat until Blo od Glucose level reaches 100 milligrams/deciliter or greater. Push 2 - 3 milliliters/minute if patient has secure IV access. Until blood glucose is 100 mg/dl or greater. If patient DOES NOT HAVE secure IV access & Patient is Unconscious, NPO or is unable to eat or drink. May repeat until Blo od Glucose level reaches 100 milligrams/deciliter or greater. Push 2 - 3 milliliters/minute; if patient has secure IV access & Patient is Unconscious, NPO or is unable to eat or drink Start: 06-07-2022 Influenza vaccination Influenza Vacc ine (#1) [facility] Start: 2018 Screening for malign ant neoplasm of breast Mammography [facility] Start: 1999 Screening for malign ant neoplasm of cervix [facility] Start: 1996 Hepatitis C screening Hepatitis C An tibody [facility] Start: 1996 Tetanus + diphtheria + acellular pertussis vaccine (product) Tdap Booster [facility] Start: 1993 HIV screening HIV Test [facility] Start: 1978 COVID-19 Vaccine (#1) COVID-19 Vacci ne (#1) [facility] End: 10-09-2022 Basic metabolic 2000 panel - Serum or Plasma BASIC METABOLIC PANEL Lab STAT One time for 1 Occurrences starting 10/09/2022 until 10/09/2022 [facility] Work Phone: Comment on above: One time for 1 Occur rences starting 10/09/2022 until 10/09/2022 End: 10-09-2022 Fibrin dgradj products d-dimer qual/semiquan D-DIMER Lab STAT One time for 1 Occurrences starting 10/09/2022 until 10/09/2022 [facility] Comment on above: One time for 1 Occur rences starting 10/09/2022 until 10/09/2022 History of insertion of stent into ureter S/P cystoscopy with ureteral stent placement [facility] Problems Active Problems Problem Classification Problem Date Documented Da te Episodic/Chronic Abdominal pain (6 sources) Abdominal pain; Translations: [Right flank pain] 11-11-2022 Episodic Comment on above: ABD PAIN Acute and unspecified renal failure (4 sources) Injury of kidney; Translations: [Acute kidney failure, unspecified] Onset: 02-10-2023 11-11-2022 Episodic Administrative/social admission (1 source) Counseling procedure with explicit context; Translations: [Dietary counseling and surveillance] Episodic Allergic reactions (1 source) Allergy status to narcotic agent status; Translations: [Allergy status to narcotic agent] Onset: 12-06-2022 Episodic Anxiety disorders (1 source) Anxiety disorder, unspecified; Translations: [Anxiety disorder, unspecified] Onset: 12-06-2022 Chronic Asthma (1 source) Unspecified asthma, uncomplicated; Translations: [Unspecified asthma, uncomplicated] Onset: 12-06-2022 Chronic Bacterial infection; unspecified site (2 sources) Extended spectrum beta lactamase (ESBL) resistance; Translations: [Unspecified Escherichia coli [E. coli] as the cause of diseases classified elsewhere] Onset: 11-16-2022 Episodic Calculus of urinary tract (5 sources) Calcium renal calculus ; Translations: [Calculus of kidney] Onset: 01-19-2023 Episodic Chronic kidney disease (2 sources) Chronic kidney disease, stage 2 (mild); Translations: [Chronic kidney disease] Onset: 02-10-2023 Chronic Chronic kidney disease (1 source) Chronic kidney disease; Translations: [Chronic kidney disease, stage 3 unspecified] Onset: 12-06-2022 Conditions associated with dizziness or vertigo (2 sources) Dizziness 01-19-2023 Episodic Comment on above: DIZZINESS Diabetes mellitus with complications (10 sources) Type 2 diabetes mellitus with diabetic chronic kidney disease; Translations: [Type 2 diabetes mellitus with diabetic neuropathy, unspecified] Onset: 10-14-2022 Chronic Diabetes mellitus without complication (3 sources) Diabetes mellitus; Translations: [Diabetes mellitus without mention of complication, type II or unspecified type, not stated as uncontrolled] Chronic Diabetes mellitus without complication (5 sources) Hyperglycemia; Translations: [Hyperglycemia, unspecified] Onset: 11-07-2022 Episodic Diabetes mellitus without complication (2 sources) Diabetes mellitus without complication 12-23-2022 Comment on above: NPV - DIABETES CHECK UP Disorders of lipid metabolism (1 source) Hyperlipidemia, unspecified; Translations: [Hyperlipidemia, unspecified] Onset: 12-06-2022 Chronic Essential hypertension (3 sources) Hypertensive disorder; Translations: [Unspecified essential hypertension] Chronic Fluid and electrolyte disorders (5 sources) Dehydration; Translations: [Dehydration] Onset: 11-16-2022 01-19-2023 Episodic Genitourinary symptoms and ill-defined conditions (6 sources) Genitourinary symptoms; Translations: [Unspecified symptoms and signs involving the genitourinary system] Onset: 11-07-2022 Episodic Hypertension with complications and secondary hypertension (1 source) Hypertensive chronic kidney disease with stage 1 through stage 4 chronic kidney disease, or unspecified chronic kidney disease; Translations: [Hypertensive chronic kidney disease w stg 1-4/unsp chr kdny] Onset: 02-10-2023 Chronic Late effects of cerebrovascular disease (1 source) 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; Translations: [Monoplg upr lmb fol cerebral infrc aff right dominant side] Onset: 11-16-2022 Chronic Malaise and fatigue (1 source) Weakness; Translations: [Weakness] Onset: 01-19-2023 Episodic Mood disorders (1 source) Mood disorders; Translations: [Depression, unspecified] Onset: 12-06-2022 Nausea and vomiting (3 sources) Nausea and vomiting; Translations: [Nausea with vomiting, unspecified] Onset: 11-07-2022 Episodic Nonspecific chest pain (1 source) Symptom: chest wall; Translations: [Other chest pain] Episodic Nutritional deficiencies (1 source) Unspecified severe protein-calorie malnutrition; Translations: [Unspecified severe protein-calorie malnutrition] Onset: 12-06-2022 Chronic Other aftercare (1 source) terminal supervisor (current) use of insulin; Translations: [terminal supervisor (current) use of insulin] Onset: 02-10-2023 Episodic Other aftercare (1 source) terminal supervisor (current) use of oral hypoglycemic drugs; Translations: [terminal supervisor (current) use of oral hypoglycemic drugs] Onset: 02-10-2023 Episodic Other aftercare (1 source) Other correction (current) drug therapy; Translations: [Other correction (current) drug therapy] Onset: 02-10-2023 Episodic Other aftercare (1 source) care home (current) use of antibiotics; Translations: [terminal supervisor (current) use of antibiotics] Onset: 01-19-2023 Episodic Other aftercare (1 source) Long-term current use of insulin; Translations: [care home (current) use of insulin] Episodic Other aftercare (1 source) Long-term current use of oral hypoglycemic medication; Translations: [care home (current) use of oral hypoglycemic drugs] Episodic Other circulatory disease (1 source) Personal history of transient ischemic attack (TIA), and cerebral infarction without residual deficits; Translations: [Prsnl hx of TIA (TIA), and cereb infrc w/o resid deficits] Onset: 12-06-2022 Episodic Other connective tissue disease (1 source) Cramp and spasm; Translations: [Cramp and spasm] Onset: 01-19-2023 Episodic Other diseases of bladder and urethra (1 source) Overactive bladder; Translations: [Overactive bladder] Onset: 12-06-2022 Chronic Other endocrine disorders (2 sources) Hypoglycemia; Translations: [Hypoglycemia, unspecified] 01-19-2023 Chronic Other gastrointestinal disorders (1 source) Diarrhea; Translations: [Diarrhea, unspecified] Onset: 11-07-2022 Episodic Other gastrointestinal disorders (1 source) Abdominal distension (gaseous); Translations: [Abdominal distension (gaseous)] Onset: 02-10-2023 Episodic Other gastrointestinal disorders (1 source) Constipation, unspecified; Translations: [Constipation, unspecified] Onset: 12-06-2022 Episodic Other liver diseases (1 source) Fatty (change of) liver, not elsewhere classified; Translations: [Fatty (change of) liver, not elsewhere classified] Onset: 12-06-2022 Chronic Other nutritional; endocrine; and metabolic disorders (1 source) Obesity, unspecified; Translations: [Obesity, unspecified] Onset: 12-06-2022 Chronic Other nutritional; endocrine; and metabolic disorders (1 source) Other disorders of plasma-protein metabolism, not elsewhere classified; Translations: [Oth disorders of plasma-protein metabolism, NEC] Onset: 12-06-2022 Chronic Other nutritional; endocrine; and metabolic disorders (1 source) Body mass index (BMI) 34.0-34.9, adult; Translations: [Body mass index [BMI] 34.0-34.9, adult] Onset: 12-06-2022 Chronic Other nutritional; endocrine; and metabolic disorders (1 source) Hypocalcemia; Translations: [Hypocalcemia] Onset: 11-16-2022 Chronic Other nutritional; endocrine; and metabolic disorders (1 source) Body mass index (BMI) 35.0-35.9, adult; Translations: [Body mass index [BMI] 35.0-35.9, adult] Onset: 10-18-2022 Chronic Other nutritional; endocrine; and metabolic disorders (1 source) Abnormal weight gain; Translations: [Abnormal weight gain] Onset: 02-10-2023 Episodic Other nutritional; endocrine; and metabolic disorders (1 source) Other symptoms and signs concerning food and fluid intake; Translations: [Other symptoms and signs concerning food and fluid intake] Onset: 01-19-2023 Episodic Residual codes; unclassified (1 source) Obstructive sleep apnea syndrome; Translations: [Obstructive sleep apnea (adult) (pediatric)] Onset: 01-30-2023 Chronic Residual codes; unclassified (1 source) Obstructive sleep apnea (adult) (pediatric); Translations: [Obstructive sleep apnea (adult) (pediatric)] Onset: 12-06-2022 Chronic Residual codes; unclassified (1 source) Body fluid retention 02-10-2023 Episodic Respiratory failure; insufficiency; arrest (adult) (1 source) Dependence on supplemental oxygen; Translations: [Dependence on supplemental oxygen] Onset: 11-16-2022 Chronic Septicemia (except in labor) (4 sources) Sepsis, unspecified organism; Translations: [Severe sepsis without septic shock] Onset: 11-11-2022 Episodic Unclassified (2 sources) Primary hypertension 11-11-2022 Unclassified (1 source) FOLLOW UP FROM HOSPITAL 11-14-2022 Comment on above: FOLLOW UP FROM [facility] Unclassified (8 sources) Extended spectrum beta-lactamase producing bacteria carrier Onset: 11-07-2022 11-10-2022 Comment on above: ESBL E coli in urine 11/07/2022 Unclassified (1 source) CT RESULTS 12-25-2022 Comment on above: CT RESULTS Unclassified (2 sources) KIDNEY AND BACK PAIN 02-10-2023 Comment on above: KIDNEY AND BACK PAIN Unclassified (1 source) VELVET (acute kidney injury) 02-10-2023 Unclassified (1 source) Contact with and (suspected) exposure to COVID-19; Translations: [Contact with and (suspected) exposure to COVID-19] Onset: 12-06-2022 Unclassified (1 source) Acidosis, unspecified; Translations: [Acidosis, unspecified] Onset: 10-18-2022 Unclassified (1 source) Pt noncompl with other med trtmt and regimen d/t unsp reason; Translations: [Pt noncompl with other med trtmt and regimen d/t unsp reason] Onset: 10-18-2022 Urinary tract infections (9 sources) Pyelonephritis; Translations: [Pyelonephritis, unspecified] Onset: 11-16-2022 11-11-2022 Episodic Comment on above: TUBULO-INTERSTITIAL NEPHRITIS, NOT SPCF ACUTE OR CHRONIC Past or Other Problems Problem Classification Problem Date Documented Da te Episodic/Chronic Other circulatory disease (1 source) Hypotension, unspecified; Translations: [Hypotension, unspecified] Onset: 11-16-2022 Episodic Other injuries and conditions due to external causes (1 source) Underdosing of insulin and oral hypoglycemic [antidiabetic] drugs, initial encounter; Translations: [Underdosing of insulin and oral hypoglycemic drugs, init] Onset: 10-18-2022 Episodic Residual codes; unclassified (1 source) Acquired absence of other specified parts of digestive tract; Translations: [Acquired absence of other specified parts of digestive tract] Onset: 11-16-2022 Episodic Residual codes; unclassified (1 source) Acquired absence of both cervix and uterus; Translations: [Acquired absence of both cervix and uterus] Onset: 10-18-2022 Episodic Screening and history of mental health and substance abuse codes (1 source) Personal history of nicotine dependence; Translations: [Personal history of nicotine dependence] Onset: 11-16-2022 Episodic Procedures Date Procedure Procedure Detail Performing Clinician Start: 02-10-2023 End: 02-10-2023 EKG impression Kee Beny Start: 01-26-2023 Follow-up visit Start: 01-19-2023 End: 01-19-2023 Arterial Full Panel -Next Draw Srinivas Fragoso Start: 11-24-2022 Follow-up visit Start: 10-10-2022 Glucose blood reagent strip To Be Assigned Start: 10-09-2022 End: 10-09-2022 Potassium serum plasma/whole blood Andrei Rader MD Work Phone: Start: 10-09-2022 Radiologic exam ches t 2 views Andrei Rader MD Work Phone: Start: 10-09-2022 End: 10-09-2022 Glucose blood reagent strip To Be Assign ed Start: 10-09-2022 Urine test visual color cmprsn meths Andrei Rader MD Work Phone: Adenoid excision Christina valverde MD, MPH Work Phone: Decompression of med jennifer nerve Christina Mcnally MD, MPH Work Phone: End: 11-14-2022 History of insertion of stent into ureter ZHAO KIP Hysterectomy Christina hodge MD, MPH Work Phone: Results Test Name Value Interpretation Reference Range Facility CNCOon 12-29-2023 CNCO Letter Text Normal [facility] Insurance Correspondenceon 0 10-12-2023 Insurance Correspondence [id number] Normal [facility] Physician Orderon 10-12-2023 Physician Order [id number] Normal [facility] BNPon 10-07-2023 Int Ctr BNP Pass Normal [facility] Comment on above: Performed By: #### 1 [id number] ####[facility] [address] [place] [address] Natriuretic peptide B (Bld) [Mass/Vol] 129 pg/mL High 5-80 [facility] Comment on above: Performed By: #### 1 [id number], [id number], [id number] ####[facility] [address] [place] [address] CHEMISTRYOrdered By: SYSTEM SYSTEM on 10-07-2023 Albumin [Mass/Vol] 3.6 g/dL Normal 3.3 - 5.0 gm/dL Remisol Chem Albumin/Globulin [Mass ratio] 1.1 {ratio} Normal 1.1 - 2.2 Remisol Chem Alk Phos 100 [iU]/d High 21 - 98 Int._Unit/L Remisol Chem ALT 56 [iU]/d High 6 - 46 Int._Unit/L Remisol Chem Anion gap [Moles/Vol] 12 mmol/L Normal 6 - 16 mEq/L Remisol Chem AST 34 [iU]/d Normal 5 - 43 Int._Unit/L Remisol Chem Bili Total 0.4 mg/dL Normal 0.0 - 1.1 mg/dL Remisol Chem Calcium [Mass/Vol] 9.3 mg/dL Normal 8.9 - 11. 1 mg/dL Remisol Chem Chloride [Moles/Vol] 101 mmol/L Normal 101 - 1 11 mmol/L Remisol Chem CO2 [Moles/Vol] 29 mmol/L Normal 21 - 31 mmol/L Remisol Chem Creatinine [Mass/Vol] 1.1 mg/dL Normal 0.5 - 1.3 mg/dL Remisol Chem eGFR 63 mL/min/1.73 m2 Normal >=59mL/min / 1.73 m2 Remisol Chem Globulin (S) [Mass/Vol] 3.2 g/dL Normal 1.4 - 4.0 gm/dL Remisol Chem Glucose [Mass/Vol] 312 mg/dL High 55 - 199 mg/dL Remisol Chem Potassium [Moles/Vol] 4.2 mmol/L Normal 3.5 - 5.3 mmol/L Remisol Chem Protein [Mass/Vol] 6.8 g/dL Normal 6.0 - 7.8 gm/dL Remisol Chem Sodium [Moles/Vol] 138 mmol/L Normal 135 - 145 mmol/L Remisol Chem Urea nitrogen [Mass/Vol] 19 mg/dL Normal 5 - 21 mg/dL Remisol Chem Urea nitrogen/Creatinine [Mass ratio] 17 mg/mg Normal 10 - 20 Remisol Chem CHEMISTRYOrdered By: Brook Schaffer on 10-07-2023 Natriuretic peptide B (Bld) [Mass/Vol] 129 pg/mL High 5 - 80 pg/mL [facility] Ronni CMPon 10-07-2023 Albumin [Mass/Vol] 3.6 g/dL Normal 3.3-5.0 [facility] Comment on above: Performed By: #### 1 [id number], [id number], [id number] ####[address] [place] [address] Albumin/Globulin [Mass ratio] 1.1 {ratio} Normal 1.1-2.2 [facility] Comment on above: Performed By: #### 1 [id number], [id number], [id number] ####[place] [id number] Alk Phos 100 Int._Unit/L High 21-98 [facility] Comment on above: Performed By: #### 1 [id number], [id number], [id number] ####[place] [address] ALT 56 Int._Unit/L High 6-46 [facility] Comment on above: Performed By: #### 1 [id number], [id number], [id number] ####[place] [address] Anion gap [Moles/Vol] 12 mmol/L Normal 6-16 [facility] Comment on above: Performed By: #### 1 [id number], [id number], [id number] ####[place] [address] AST 34 Int._Unit/L Normal 5-43 [facility] Comment on above: Performed By: #### 1 [id number], [id number], [id number] ####[place] [id number] Bili Total 0.4 mg/dL Normal 0.0-1.1 [facility] Comment on above: Performed By: #### 1 [id number], [id number], [id number] ####[place] [address] BUN/Creat Ratio 17 No Units Normal 10-20 [facility] Comment on above: Performed By: #### 1 [id number], 7390703, [id number] ####[place] [address] Calcium [Mass/Vol] 9.3 mg/dL Normal 8.9-11.1 [facility] Comment on above: Performed By: #### 1 [id number], 8058594, [id number] ####[facility] [address] [place] [address] Chloride [Moles/Vol] 101 mmol/L Normal 101-111 [facility] Comment on above: Performed By: #### 1 [id number], [id number], [id number] ####[facility] [address] [place] [address] CO2 [Moles/Vol] 29 mmol/L Normal 21-31 [facility] Comment on above: Performed By: #### 1 [id number], 8530085, [id number] ####[facility] [address] [place] [address] Creatinine [Mass/Vol] 1.1 mg/dL Normal 0.5-1.3 [facility] Comment on above: Performed By: #### 1 [id number], [id number], [id number] ####[facility] [address] [place] [address] Globulin (S) [Mass/Vol] 3.2 g/dL Normal 1.4-4.0 [facility] Comment on above: Performed By: #### 1 [id number], 6395792, [id number] ####[facility] [address] [place] [address] Glucose [Mass/Vol] 312 mg/dL High 55-199 [facility] Comment on above: Performed By: #### 1 [id number], [id number], [id number] ####[facility] [address] [place] [address] Potassium [Moles/Vol] 4.2 mmol/L Normal 3.5-5.3 [facility] Comment on above: Performed By: #### 1 [id number], 5633393, [id number] ####[facility] [address] [place] [address] Protein [Mass/Vol] 6.8 g/dL Normal 6.0-7.8 [facility] Comment on above: Performed By: #### 1 [id number], 5013251, [id number] ####[facility] [address] [place] [address] Sodium [Moles/Vol] 138 mmol/L Normal 135-145 [facility] Comment on above: Performed By: #### 1 [id number], 5739732, [id number] ####[facility] [address] [place] [address] Urea nitrogen [Mass/Vol] 19 mg/dL Normal 5-21 [facility] Comment on above: Performed By: #### 1 [id number], 0676566, [id number] ####[address] [place] [address] Consent for Treatmenton 09-09 Consent for Treatment [id number] Normal [facility] Physician Orderon 10-07-2023 Physician Order [id number] Normal [facility] eGFRon 10-07-2023 eGFR 63 mL/min/1.73 m2 Normal >=59 [facility] Comment on above: Order Comment: Order added by Discern Expert. Performed By: #### 1 [id number], [id number], [id number] ####[address] [place], [place] [address] ED Note-Physicianon 09-29-19 24 ED Note-Physician Basic Information Time Seen: Marcos Bartlett PA-C 09/28/2023 15:03 Chief Complaint pt to ER with c/o nausea, vomiting, diarrhea, palpitations, headache that started 2 days ago. hx stage 3 kidney disease, hx of stroke 2 years ago, T2DM. has been taking zofran at home. hasnt been monitoring diabetes at all since april BS 409 History of Present Illness 43-year-old female reports emergency Department chief complaint of nausea, vomiting, diarrhea and palpitations and headache. Reports that started 2 days ago. Reports that she is type II diabetic, has not been on medication since April. States that her blood sugar is very high. Believes that she may be in DKA. This is main concern. Denies any chest pain with this. Denies any shortness of breath. Went to get checked out. Review of Systems A 10 point review of systems is negative except as noted above. Medical and Surgical History: Reviewed and noted Social history: Lives at home Family History: Reviewed. Tobacco: Denies Physical Exam Vitals & Measurements T: 36.5 ?C(Oral) HR: 91(Monitored) RR: 20 BP: 138/88 SpO2: 99% HT: 162 cm WT: 89.2 kg BMI: 33.99 General: The patient appears well and in no apparent distress. Patient is resting comfortably on bed. Afebrile Skin: Warm, dry, no pallor noted. Head: Normocephalic, atraumatic Neck: No JVD Eye: PERRLA, EOMI ENT: Moist mucus membranes Cardiovascular: Regular rate normal peripheral perfusion. Radial pulses +2 bilaterally Respiratory: No respiratory distress no accessory muscle use no obvious audible wheezing Chest Wall: no deformity Musculoskeletal: normal ROM, no deformity, no swelling GI: No obvious distention soft nontender nondistended no guarding rebounding or rigidity Neurological: A&O moves all extremities equal strength and symmetry Psychiatric: Cooperative and appropriate Medical Decision Making MEDICAL DECISION MAKING Number and Complexity of Problems Differential Diagnosis: [] [facility] Data External documents reviewed: [] My EKG interpretation: reviewed My X-ray interpretation: reviewed My Ultrasound interpretation: [] Decision rules/scores evaluated: [] Discussed with: [] Treatment and Disposition ED Course: 43-year-old female reports emerged part with chief complaint of vomiting, nausea, palpitations. Reports that she believes that she may be in DKA. Reports has not been on medication since April. Reports just got insurance. Physical exam the patient rather benign. No acute findings. Due to concerns, we did do a DKA type workup on patient. Patient's blood sugar did come up at 420. We did do a blood gas, that showed a pH of 7.329. Due to concerns, we did hit her with 2 L of fluids, Reglan, as well as 10 units of insulin lisinopril. Patient was able to pass p.o. challenge here. Patient did feel improved. We were able to bring her blood sugar down to 255. Patient felt comfortable with this. I did feel compress as well with discharge. Discussed ultimately she is follow-up immediately primary care to figure out her blood glucose and current management of her type 2 diabetes. Patient understanding. Discussed return precautions. Follow-up with your primary care provider in 3 to 5 days. If symptoms worsen, do not improve, or new symptoms arise please report back to emergency department for further evaluation. The patient was understanding and agreeable to plan moving forward. Shared decision making: [] Code status: [] Assessment/Plan Elevated blood sugar (R73.9: Hyperglycemia, unspecified) Nausea and vomiting (R11.2: Nausea with vomiting, unspecified) Orders: insulin lispro, 10 unit(s) = 0.1 mL, Injection-Insulin, SubCutaneous, Once, Stop date 09/28/23 16:04:00 EST, STAT, Start date 09/28/23 16:04:00 EST metoclopramide, 10 mg = 2 mL, Injection, IV Push, Once, Stop date 09/28/23 15:37:00 EST, STAT, Start date 09/28/23 15:37:00 EST, 09/28/23 15:37:00 EST metoclopramide, 10 mg = 1 tab(s), Oral, QID, X 7 day(s), # 28 tab(s), Refills(s) 0, Pharmacy: [facility]/pharmacy #[id number], 162, cm, 09/28/23 14:32:00 EST, Height/Length Dosing, 89.2, kg, 09/28/23 14:32:00 EST, Weight Dosing Sodium Chloride 0.9% intravenous solution, 1,000 mL, Soln-IV, IV, Once, Stop date 09/28/23 15:37:00 EST, STAT, Start date 09/28/23 15:37:00 EST, Infuse over 61, minute(s) Sodium Chloride 0.9% intravenous solution, 1,000 mL, Soln-IV, IV, Once, Stop date 09/28/23 16:04:00 EST, STAT, Start date 09/28/23 16:04:00 EST, Infuse over 61, minute(s) Basic Metabolic Panel Beta hCG Qual Beta-hydroxybutyrate Blood Gas Albert CBC w/ Auto Diff eGFR Hepatic Function Panel Lipase Level UA With Cult Reflex Medications Administered Given [id number] [F], 10 unit(s), SubCutaneous metoclopramide 5 mg/mL Inj, 10 mg, IV Push NS 1000 ml Bolus, 1000 mL, IV NS 1000 ml Bolus, 1000 mL, IV Disposition Plan Patient Discharge Condition Stable Discharge Disposition To home Discharge Prescription List Prescriptions (more content not included)... Normal [facility] Comment on above: Result Comment: Elec tronically Signed By: Marcos Bartlett PA-C\.br\Date and Time Signed: 09/28/23 21:52 EST\.br\Electronically Co-Signed By: Srinivas Easley DO\.br\Date and Time Co-Signed: 09/29/23 07:09 EST B hCG Qualon 09-28-2023 Beta HCG ( test) Ql Negative Normal [facility] Comment on above: Performed By: #### 2 824085, 83708922, 4728634, 15253960, 7098324, 768006137, 12682793, 8784828 ####[facility] [address] [place] [address] BMPon 09-28-2023 Anion gap [Moles/Vol] 14 mmol/L Normal 6-16 [facility] Comment on above: Performed By: #### 2 749466, 45482932, 6464774, 51208482, 1193898, 423908934, 54652144, 6898351 ####[facility] [address] [place] [address] BUN/Creat Ratio 20 No Units Normal 10-20 [facility] Comment on above: Performed By: #### 2 088360, 48599777, 4751386, 49443986, 4877153, 056980071, 20089353, 2699708 ####[facility] [address] [place] [address] Calcium [Mass/Vol] 9.4 mg/dL Normal 8.9-11.1 [facility] Comment on above: Performed By: #### 2 208303, 75846642, 2765334, 84477317, 5750952, 518803194, 85200948, 3836463 ####[facility] [address] [place] [address] Chloride [Moles/Vol] 96 mmol/L Low 101-111 [facility] Comment on above: Performed By: #### 2 749904, 98948819, 9170111, 28072416, 3923475, 321505178, 43651109, 3227689 ####[facility] [address] [place] [address] CO2 [Moles/Vol] 25 mmol/L Normal 21-31 [facility] Comment on above: Performed By: #### 2 396598, 60991675, 0709557, 15028780, 8828937, 872011478, 05247516, 9566474 ####[facility] [address] [place] [address] Creatinine [Mass/Vol] 1.0 mg/dL Normal 0.5-1.3 [facility] Comment on above: Performed By: #### 2 144147, 85396689, 9944397, 37072170, 0186420, 224235964, 26194339, 6736414 ####[facility] [address] [place] [address] Glucose [Mass/Vol] 420 mg/dL High 55-199 [facility] Comment on above: Performed By: #### 2 032898, 98075196, 3298426, 21411847, 4828503, 963623902, 23631006, 8164616 ####[facility] [address] [place] [address] Potassium [Moles/Vol] 4.2 mmol/L Normal 3.5-5.3 [facility] Comment on above: Performed By: #### 2 524282, 17943321, 3895084, 13212839, 1547683, 861805095, 60720918, 8391039 ####[facility] [address] [place] [address] Sodium [Moles/Vol] 131 mmol/L Low 135-145 [facility] Comment on above: Performed By: #### 2 157799, 07959051, 8142939, 02170588, 3875275, 680538179, 47373832, 4562202 ####[facility] [address] [place] [address] Urea nitrogen [Mass/Vol] 20 mg/dL Normal 5-21 [facility] Comment on above: Performed By: #### 2 010485, 53414846, 9517650, 00882810, 1378823, 902493863, 26496856, 3778515 ####[facility] [address] [place] [address] BOHBon 09-28-2023 Beta HB Qnt 1.22 mmol/L High 0.02-0.27 [facility] Comment on above: Performed By: #### 2 263416, 15607020, 3843823, 81246023, 1746505, 337699878, 73404315, 6252572 ####[facility] [address] [place] [address] Bld Gas Venon 09-28-2023 Allens Test Not Applicable Normal [facility] Comment on above: Performed By: #### 1 0056479 ####[facility] [address] [place] [address] Drawn by lab Invalid Interpretation Code [facility] Comment on above: Performed By: #### 1 [id number] ####[facility] [address] [place] [address] FIO2 BG 21 Invalid Interpretation Code [facility] Comment on above: Performed By: #### 1 8242730 ####[facility] [address] [place] [address] pCO2 Albert 50.6 mmHg High 38.0-50.0 [facility] Comment on above: Performed By: #### 1 8705908 ####[place] [address]357 pH Albert 7.329 Normal 7.320-7.430 [facility] Comment on above: Performed By: #### 1 0039730 ####[place] [address]457 Sample Site OTHER Normal [facility] Comment on above: Performed By: #### 1 0264994 ####[place] [address]18457 Sample Type Venous Draw Normal [facility] Comment on above: Performed By: #### 1 2695344 ####[place] [address]457 CBC w/ Auto Diffon 4 Basophil Absolute 0.1 E9/L Normal 0.0-0.2 [facility] Comment on above: Performed By: #### 2 509922, 75397882, 2785236, 56877500, 8633734, 557535997, 43294891, 4922762 ####[address] [address] Basophils/100 WBC (Bld) 1.0 % Normal 0.0-2.0 [facility] Comment on above: Performed By: #### 2 450082, 57775511, 4601262, 86259432, 9542373, 515288772, 49677071, 9208894 ####[address] [address] Eos Absolute 0.1 E9/L Normal 0.0-0.5 [facility] Comment on above: Performed By: #### 2 444972, 81193528, 8981279, 80499076, 9122546, 837606509, 17180826, 1223846 ####[address] [address] Eosinophils/100 WBC (Bld) 1.7 % Normal 0.0-8.0 [facility] Comment on above: Performed By: #### 2 229909, 01511674, 3203128, 74724232, 1675862, 753780098, 91003338, 9421415 ####[place] [address] [place] [address] Erythrocyte distribution width (RBC) [Ratio] 14.8 % High 10.9-14.2 [facility] Comment on above: Performed By: #### 2 570270, 68883315, 0957404, 84678375, 3135834, 126656463, 59196400, 3605594 ####[place] [address] [place] [address] Hematocrit (Bld) [Volume fraction] 46.0 % Normal 34.0-46.0 [facility] Comment on above: Performed By: #### 2 445227, 96643401, 0397077, 09550435, 7534289, 392056579, 91386213, 8108610 ####[address] [address] Hemoglobin (Bld) [Mass/Vol] 15.2 g/dL Normal 12.0-16.0 [facility] Comment on above: Performed By: #### 2 002404, 59090386, 2175602, 73728203, 1458777, 525936939, 44280286, 7151638 ####[place] [address] [place] [address] Lymph Absolute 1.5 E9/L Normal 1.0-4.0 [facility] Comment on above: Performed By: #### 2 155149, 97128961, 2252721, 48199382, 5803184, 385041250, 03590243, 2533065 ####[address] [address] Lymphocytes/100 WBC (Bld) 20.2 % Normal 14.0-50.0 [facility] Comment on above: Performed By: #### 2 029633, 78698103, 0651552, 50879538, 2984493, 438026738, 49055351, 2878600 ####[place] [address] [place] [address] MCH (RBC) [Entitic mass] 30.5 pg Normal 27.0-34.0 [facility] Comment on above: Performed By: #### 2 637442, 49078833, 2991202, 27567356, 4289597, 314884282, 95877263, 1622360 ####[address] [address] MCHC (RBC) [Mass/Vol] 32.8 g/dL Normal 31.4-36.0 [facility] Comment on above: Performed By: #### 2 608169, 89538766, 9248764, 56266476, 0931958, 553587089, 92946865, 4734240 ####[address] [address] MCV (RBC) [Entitic vol] 93.0 fL Normal 80.0-100.0 [facility] Comment on above: Performed By: #### 2 820980, 41926941, 2331176, 95863312, 8024068, 933974278, 61656393, 0345842 ####[address] [address] [place] Absolute 0.4 E9/L Normal 0.2-1.0 [facility] Comment on above: Performed By: #### 2 252342, 09520747, 6701297, 16733814, 8647997, 733123921, 93336516, 8617594 ####[address] [address] Monocytes/100 WBC (Bld) 5.5 % Normal 4.0-14.0 [facility] Comment on above: Performed By: #### 2 041071, 57675925, 4805855, 94055946, 7729061, 780485208, 48059335, 2624209 ####[address] [address] Neutro Absolute 5.2 E9/L Normal 2.0-7.5 [facility] Comment on above: Performed By: #### 2 897152, 40431705, 8124399, 84194948, 8703454, 174474682, 66865370, 5450959 ####[facility] [address] [place] [address] Neutro Auto 71.6 % Normal 36.0-75.0 [facility] Comment on above: Performed By: #### 2 119087, 11358087, 5139073, 83345247, 2915378, 170862287, 30368899, 5017747 ####[facility] [address] [place] [address] Platelet 288.0 E9/L Normal 150.0-500.0 [facility] Comment on above: Performed By: #### 2 604718, 85063143, 6386967, 81148958, 5234740, 884928530, 59385694, 2316997 ####[place] [address] [place] [address] Platelet mean volume (Bld) [Entitic vol] 9.3 fL Normal 6.4-10.8 [facility] Comment on above: Performed By: #### 2 033522, 35550008, 5496178, 67909243, 4649802, 130960309, 32588514, 5016603 ####[place] [address] [place] [address] RBC 5.0 E12/L Normal 4.3-5.9 [facility] Comment on above: Performed By: #### 2 509991, 24168647, 8919702, 48076056, 7630580, 302093467, 36938247, 1369656 ####[facility] [address] [place] [address] WBC 7.3 E9/L Normal 4.0-11.0 [facility] Comment on above: Performed By: #### 2 877180, 20269657, 3795750, 01389925, 1710136, 500465264, 40519054, 1439438 ####[facility] [address] [place] [address] CHEMISTRYOrdered By: SYSTEM SYSTEM on 09-28-2023 Albumin [Mass/Vol] 4.2 g/dL Normal 3.3 - 5.0 gm/dL Remisol Chem Albumin/Globulin [Mass ratio] 1.3 {ratio} Normal 1.1 - 2.2 [facility] Alk Phos 103 [iU]/d High 21 - 98 Int._Unit/L Remisol Chem ALT 27 [iU]/d Normal 6 - 46 Int._Unit/L [facility] Anion gap [Moles/Vol] 14 mmol/L Normal 6 - 16 mEq/L [facility] AST 14 [iU]/d Normal 5 - 43 Int._Unit/L [facility] Bili Direct 0.1 mg/dL Normal 0.0 - 0.4 mg/dL [facility] Bili Indirect 0.6 mg/dL Normal 0.1 - 0.9 mg/dL [facility] Bili Total 0.7 mg/dL Normal 0.0 - 1.1 mg/dL [facility] Calcium [Mass/Vol] 9.4 mg/dL Normal 8.9 - 11. 1 mg/dL [facility] Chloride [Moles/Vol] 96 mmol/L Low 101 - 1 11 mmol/L [facility] CO2 [Moles/Vol] 25 mmol/L Normal 21 - 31 mmol/L [facility] Creatinine [Mass/Vol] 1.0 mg/dL Normal 0.5 - 1.3 mg/dL [facility] eGFR 71 mL/min/1.73 m2 Normal >=59mL/min / 1.73 m2 [facility] Globulin (S) [Mass/Vol] 3.3 g/dL Normal 1.4 - 4.0 gm/dL [facility] Glucose [Mass/Vol] 420 mg/dL High 55 - 199 mg/dL [facility] Lipase Lvl 26 unit/L Normal 13 - 58 unit/L [facility] Potassium [Moles/Vol] 4.2 mmol/L Normal 3.5 - 5.3 mmol/L [facility] Protein [Mass/Vol] 7.5 g/dL Normal 6.0 - 7.8 gm/dL [facility] Sodium [Moles/Vol] 131 mmol/L Low 135 - 145 mmol/L [facility] Troponin 3.90 pg/mL Low 10.10 - 27.10 pg/mL [facility] Comment on above: Interpretive Data: T he 95% CI (Confidence Interval) PPV (Positive Predictive Value) for myocardial infarction in females is 38 pg/mL, in males 51 pg/mL. The results should be used in conjunction with clinical conditions of myocardial infarction. (Access High Sensitivity Troponin I Instructions For Use, [employer], April 2018) Troponin 3.60 pg/mL Low 10.10 - 27.10 pg/mL [facility] Comment on above: Interpretive Data: T he 95% CI (Confidence Interval) PPV (Positive Predictive Value) for myocardial infarction in females is 38 pg/mL, in males 51 pg/mL. The results should be used in conjunction with clinical conditions of myocardial infarction. (Access High Sensitivity Troponin I Instructions For Use, [employer], April 2018) Urea nitrogen [Mass/Vol] 20 mg/dL Normal 5 - 21 mg/dL [facility] Urea nitrogen/Creatinine [Mass ratio] 20 mg/mg Normal 10 - 20 Rem[facility] Chem CHEMISTRYOrdered By: Brook Schaffer on 09-28-2023 Beta HB Qnt 1.22 mmol/L High 0.02 - 0.27 mmol/L [facility] Chem S CHEMISTRYOrdered By: Michael Murrell on 09-28-2023 Glucose [Mass/Vol] 409 mg/dL High 55 - 99 mg/dL [facility] POC Subsection Comment on above: Result Comment: Francisco cook RN/ Glucose [Mass/Vol] 325 mg/dL High 55 - 99 mg/dL [facility] POC Subsection Comment on above: Result Comment: Francisco GARCIA Glucose [Mass/Vol] 255 mg/dL High 55 - 99 mg/dL [facility] POC Subsection POC Device SN [id number] 1 Invalid Interpretation Code [facility] POC Subsection POC Device SN [id number] 1 Invalid Interpretation Code [facility] POC Subsection POC Device SN [id number] 1 Invalid Interpretation Code FT POC Subsection POC User ID [id number] 1 Invalid Interpretation Code [facility] POC Subsection POC User ID [id number] 1 Invalid Interpretation Code [facility] POC Subsection POC User ID [id number] 1 Invalid Interpretation Code [facility] POC Subsection POC Username RENETTA DOWLING Invalid Interpretation Code [facility] POC Subsection POC Username JAVI CARR Invalid Interpretation Code [facility] POC Subsection POC Username JAVI CARR Invalid Interpretation Code [facility] POC Subsection COAGULATIONOrdered By: Angélica Chapman on 09-28-2023 aPTT Coag (PPP) [Time] 33.3 s Normal 25.1 - 36.5 second(s) [facility] Auto Coag Comment on above: Interpretive Data: P catherine 15 days - 4 weeks 1 - 5 months 6 - 11 months 1 - 5 years 6 - 10 years 11 - 17 years PTT Mean: 35.4 (27.6-45.6) Mean: 33.5 (24.8-40.7) Mean: 32.4 (25.1-40.7) Mean: 31.6 (24.0-39.2) Mean: 31.6 (26.9-38.7) Mean: 31.0 (24.6-38.4) Pediatric Reference ranges were obtained from a study by Reji Evans et al. prepared from 1437 samples obtained at 7 different centers using the same coagulation reagent and instrumentation as [facility]. Currently there are no coagulation studies available worldwide for children to 14 days, and no normal ranges. Heparin therapeutic range (represented by Anti-Factor Xa activity of 0.2 - 0.4 U/mL) corresponds to PTT of 56.6 - 109.0 sec. INR Coag (PPP) [Relative time] 0.8 {INR} Invalid Interpretation Code [facility] Auto Coag Comment on above: Interpretive Data: I NR results are specifically intended to assess patients stabilized on long-term Anticoagulation therapy suggested INR s Less Intensive Anticoagulation 2.0 3.0 Conventional Range 3.0 4.5 PT Coag (PPP) [Time] 9.3 s Low 9.4 - 1 2.5 second(s) [facility] Auto Coag Comment on above: Interpretive Data: 1 5 days - 4 weeks 1 - 5 months 6 -11 months 1 5 years 6 10 years 11 -17 years Mean: 11.2 (9.5 12.6) Mean: 11.0 (9.7 12.8) Mean: 11.0 (9.8 13.0) Mean: 11.3 (9.9 13.4) Mean: 11.7 (10.0 14.6) Mean: 11.8 (10.0 - 14.1) Pediatric Reference ranges were obtained from a study by Reji Evans et al. prepared from 1437 samples obtained at 7 different centers using the same coagulation reagent and instrumentation as [facility]. Currently there are no coagulation studies available worldwide for children to 14 days, and no normal ranges. Capillary Glucose POCon 09-08 Glucose [Mass/Vol] 409 mg/dL High 55-99 [facility] Comment on above: Result Comment: Francisco GARCIA Performed By: #### 2 [id number] ####[facility] [address] [place] [address] Glucose [Mass/Vol] 325 mg/dL High [address] Comment on above: Result Comment: Francisco GARCIA Performed By: #### 2 [id number] ####[facility] [address] [place] [address] Glucose [Mass/Vol] 255 mg/dL [address] Comment on above: Performed By: #### 2 [id number] ####[facility] [address] [place] [address] Consent for Treatmenton 09-08 Consent for Treatment [id number] Normal [facility] Discharge Instructionson Discharge Instructions [id number] Normal [facility] ED Clinical Summaryon 2023 ED Clinical Summary (Inserted Image. Marina ble to display) [address] [address] ED Clinical Summary Person Information Name: JADA GRANADOS/[facility] Age: 43 Years : 1980 Sex: Female Language: Hungarian PCP: BHANU MAR CNP Marital Status: Single MRN: [id number] Visit Id: Visit Reason: Headache; Diarrhea; Vomiting; Palpitations; THROWING UP, DIZZY, FEELS LIKE HEART RACING Speciality: Acuity: 2 Enc Type: Emergency Med Service: Emergency Arrival: 09/28/2023 14:15:41 Discharge: 09/28/2023 19:09:46 LOS: 000 04:54 Checkin: 09/28/2023 14:15:41 Checkout: 09/28/2023 19:09:46 Dispo Type: Home (Routine DC) EVENTS: Event Name Event Status Request Date/Time Start Date/Time Complete Date/Time Arrive Complete 09/28/2023 14:15:41 09/28/2023 14:15:41 09/28/2023 14:15:41 Document Home Meds Request 09/28/2023 14:15:41 Triage Complete 09/28/2023 14:15:41 09/28/2023 14:32:02 09/28/2023 14:32:02 EKG Complete 09/28/2023 14:25:20 09/28/2023 14:29:16 Pending Labs Complete 09/28/2023 14:32:18 09/28/2023 14:32:18 09/28/2023 14:32:19 Dr Exam Complete 09/28/2023 15:03:52 09/28/2023 15:03:52 09/28/2023 15:03:52 Registration Complete 09/28/2023 15:03:52 09/28/2023 15:14:01 09/28/2023 15:49:19 Pending Labs Complete 09/28/2023 15:11:33 09/28/2023 16:03:14 RT Tx/ABG Complete 09/28/2023 15:11:33 09/28/2023 18:11:09 09/28/2023 18:11:09 Lab Complete 09/28/2023 15:11:33 09/28/2023 15:58:22 Urine Collect Complete 09/28/2023 15:11:33 09/28/2023 15:49:02 Pending Labs Request 09/28/2023 15:12:13 X-Ray Complete 09/28/2023 15:12:13 09/28/2023 15:40:47 09/28/2023 15:48:42 Bed Assign Complete 09/28/2023 15:14:01 09/28/2023 15:14:01 09/28/2023 15:14:01 RN Exam Complete 09/28/2023 15:14:01 09/28/2023 16:07:27 09/28/2023 16:07:27 Dr Exam Complete 09/28/2023 15:17:24 09/28/2023 15:17:24 09/28/2023 15:17:24 Pending Labs Complete 09/28/2023 15:33:41 09/28/2023 15:33:41 09/28/2023 15:58:22 Lab Complete 09/28/2023 15:33:41 09/28/2023 15:33:41 09/28/2023 15:58:23 Meds Admin Complete 09/28/2023 15:37:42 09/28/2023 15:58:57 Pending Labs Complete 09/28/2023 15:40:19 09/28/2023 15:40:19 09/28/2023 16:20:47 Wet Read Complete 09/28/2023 15:48:42 09/28/2023 16:04:22 09/28/2023 16:04:22 Reg Complete Request 09/28/2023 15:49:19 Reg Bed Request Complete 09/28/2023 15:49:19 09/28/2023 15:49:19 09/28/2023 15:49:19 Meds Admin Complete 09/28/2023 16:05:05 09/28/2023 18:08:26 Pending Labs Complete 09/28/2023 17:24:51 09/28/2023 17:24:51 09/28/2023 17:24:52 Pending Labs Complete 09/28/2023 18:53:30 09/28/2023 18:53:30 09/28/2023 18:53:31 Discharge Complete 09/28/2023 19:00:27 09/28/2023 19:09:51 09/28/2023 19:09:51 Transfer Complete 09/28/2023 19:09:51 09/28/2023 19:09:51 09/28/2023 19:09:51 ADDRESS: [address] [facility] [address] [facility] [id number] PHYS DOC NOTES: MEDICAL INFORMATION: Prescriptions Given: New Medications [facility]/pharmacy #[id number], [address] [place], [place] [id number], [phone] metoclopramide (Reglan 10 mg Tab) 1 Tablets By Mouth 4 times a day for 7 Days. Refills: 0. Medications to Continue with No Changes Other Medications atorvastatin (atorvastatin 20 mg Tab) 1 Tablets By Mouth every day. buPROPion (buPROPion 300 mg/24 hours ER Tab) 1 Tablets By Mouth every day. fluoxetine (FLUoxetine 20 mg Cap) 3 Capsules By Mouth every day. fluticasone-salmeterol (fluticasone-salmeterol 232 mcg-14 mcg/inh inhalation powder) 1 Puffs Inhalation 2 times a day. fosfomycin (fosfomycin 3 g oral granule for reconstitution) 1 Each By Mouth every 48 hours. Refills: 0. hydrOXYzine (hydrOXYzine hydrochloride 50 mg oral tablet) 1 Tablets By Mouth 4 times a day as needed as needed for anxiety. insulin aspart (NovoLOG 100 units/mL injectable solution) 4 Units Subcutaneous before meals. insulin glargine (Lantus 100 units/mL Injection-Insulin) 45 - 50 unis(s) Subcutaneous once a day (at bedtime). losartan (losartan 25 mg Tab) 1 Tablets By Mouth every day. metformin (metformin 500 mg Tab) 1 Tablets By Mouth 2 times a day. ondansetron (Zofran ODT 4 mg Tab-Dis) 1 Tablets By Mouth 3 times a day. Refills: 0. pantoprazole (Pantoprazole [address] Tab) 1 Tablets By Mouth every day. prazosin (prazosin 1 mg Cap) 3 Capsules By Mouth at bedtime. pregabalin (pregabalin 100 mg Cap) 1 Capsules By Mouth 3 times a day. PATIENT EDUCATION INFORMATION: Instructions: Hyperglycemia, Bwxp-fo-Aukw; Blood Glucose Monitoring, Adult; Nausea and Vomiting, Adult, Snjv-ms-Vjtk Follow up: With: Address: Chela: BHAN[address], [place] [address] Business (1) In 3 days 10/01/2023 Comments: Follow-up with your primary care provider in 3 to 5 days. If symptoms worsen, do not improve, or new symptoms arise please report back to emergency department for further evaluation. DIAGNOSIS: Elevated blood sugar; Nausea and vomiting Normal [facility] ED Patient Education Noteon 09-28-2023 ED Patient Education Note Endocrinology Hyperglycemia Hyperglycemia is when the sugar (glucose) level in your blood is too high. High blood sugar can happen to people who have or do not have diabetes. High blood sugar can happen quickly. It can be an emergency. What are the causes? If you have diabetes, high blood sugar may be caused by: ? Medicines that increase blood sugar or affect your control of diabetes. ? Getting less physical activity. ? Overeating. ? Being sick or injured or having an infection. ? Having surgery. ? Stress. ? Not giving yourself enough insulin (if you are taking it). You may have high blood sugar because you have diabetes that has not been diagnosed yet. If you do not have diabetes, high blood sugar may be caused by: ? Certain medicines. ? Stress. ? A bad illness. ? An infection. ? Having surgery. ? Diseases of the pancreas. What increases the risk? This condition is more likely to develop in people who have risk factors for diabetes, such as: ? Having a family member with diabetes. ? Certain conditions in which the body's defense system (immune system) attacks itself. These are called autoimmune disorders. ? Being overweight. ? Not being active. ? Having a condition called insulin resistance. ? Having a history of: ? Prediabetes. ? Diabetes when . ? Polycystic ovarian syndrome (PCOS). What are the signs or symptoms? This condition may not cause symptoms. If you do have symptoms, they may include: ? Feeling more thirsty than normal. ? Needing to pee (urinate) more often than normal. ? Hunger. ? Feeling very tired. ? Blurry eyesight (vision). You may get other symptoms as the condition gets worse, such as: ? Dry mouth. ? Pain in your belly (abdomen). ? Not being hungry (loss of appetite). ? Breath that smells fruity. ? Weakness. ? Weight loss that is not planned. ? A tingling or numb feeling in your hands or feet. ? A headache. ? Cuts or bruises that heal slowly. How is this treated? Treatment depends on the cause of your condition. Treatment may include: ? Taking medicine to control your blood sugar levels. ? Changing your medicine or dosage if you take insulin or other diabetes medicines. ? Lifestyle changes. These may include: ? Exercising more. ? Eating healthier foods. ? Losing weight. ? Treating an illness or infection. ? Checking your blood sugar more often. ? Stopping or reducing steroid medicines. If your condition gets very bad, you will need to be treated in the hospital. Follow these instructions at home: General instructions ? Take vqgj-hsp-xfugfpp and prescription medicines only as told by your doctor. ? Do not smoke or use any products that contain nicotine or tobacco. If you need help quitting, ask your doctor. ? If you drink alcohol: ? Limit how much you have to: ? 0?1 drink a day for women who are not . ? 0?2 drinks a day for men. ? Know how much alcohol is in a drink. In the [place] one drink equals one 12 oz bottle of beer (355 mL), one 5 oz glass of wine (148 mL), or one 1? oz glass of hard liquor (44 mL). ? Manage stress. If you need help with this, ask your doctor. ? Do exercises as told by your doctor. ? Keep all follow-up visits. Eating and drinking ? Stay at a healthy weight. ? Make sure you drink enough fluid when you: ? Exercise. ? Get sick. ? Are in hot temperatures. ? Drink enough fluid to keep your pee (urine) pale yellow. If you have diabetes: ? Know the symptoms of high blood sugar. ? Follow your diabetes management plan as told by your doctor. Make sure you: ? Take insulin and medicines as told. ? Follow your exercise plan. ? Follow your meal plan. Eat on time. Do not skip meals. ? Check your blood sugar as often as told. Make sure you check before and after exercise. If you exercise longer or in a different way, check your blood sugar more often. ? Follow your sick day plan whenever you cannot eat or drink normally. Make this plan ahead of time with your doctor. ? Share your diabetes management plan with people in your workplace, school, and household. ? Check your pee for ketones when you are ill and as told by your doctor. ? Carry a card or wear jewelry that says that you have diabetes. Where to find more information [employer]: www.diabetes.org Contact a doctor if: ? Your blood sugar level is at or above 240 mg/dL (13.3 mmol/L) for 2 days in a row. ? You have problems keeping your blood sugar in your target range. ? You have high blood pressure often. ? You have signs of illness, such as: ? Feeling like you may vomit (feeling nauseous). ? Vomiting. ? A fever. Get help right away if: ? Your blood sugar monitor reads high even when you are taking insulin. ? You have trouble breathing. ? You have a change in how you think, feel, or act (mental status). ? You fe (more content not included)... Normal [facility] ED Patient Summaryon 024 ED Patient Summary (Inserted Image. Marina ble to display) [address] [address] Patient Discharge Instructions Person Information Name: JADA GRANADOS Age: 43 Years Arrival Date: 09/28/2023 14:15:41 Discharge Diagnosis: Elevated blood sugar; Nausea and vomiting Primary Care Physician: BHANU MAR CNP Provider Information Primary Provider: Srinivas Easley DO Advanced Lead Portfolio Manager:None The exam and treatment you received in the Emergency Department were for an urgent problem and are not intended as complete care. It is important that you follow up with a doctor, nurse practitioner, or physician?s family readiness support assistant for ongoing care. If your symptoms become worse or you do not improve as expected and you are unable to reach your usual health care provider, you should return to the Emergency Department. We are available 24 hours a day. JADA GRANADOS has been given the following list of patient education materials, prescriptions and follow-up instructions: Follow-up Instructions: With: Address: Chela: [address] [facility] [address] [place] [id number] Business (1) In 3 days 10/01/2023 Comments: Follow-up with your primary care provider in 3 to 5 days. If symptoms worsen, do not improve, or new symptoms arise please report back to emergency department for further evaluation. In the event that this physician does not participate in your insurance network, please consult with your insurance company to find a nearby participating provider. Patient Education Materials: Hyperglycemia, Pfuy-fg-Tgiz; Blood Glucose Monitoring, Adult; Nausea and Vomiting, Adult, Fmwt-bt-Vlga A MESSAGE TO ALL PATIENTS REGARDING OPIOIDS PRESCRIPTION OPIOIDS: WHAT YOU NEED TO KNOW Prescription opioids can be used to help relieve formwxbm-mw-hdkohy pain and are often prescribed following a surgery or injury, or for certain health conditions. These medications can be an important part of the treatment but also come with serious risks. It is important to work with your healthcare provider to make sure you are getting the safest, most effective care. WHAT ARE THE RISKS AND SIDE EFFECTS OF OPIOID USE? Prescription opioids carry serious risks of addiction and overdose, especially with prolonged use. An opioid overdose, often marked by slowed breathing, can cause sudden . The use of prescription opioids can have a number of side effects as well, even when taken as directed: ? Tolerance?meaning you might need to take more of the medication for the same pain relief ? Physical dependence?meaning you have symptoms of withdrawal when a medication is stopped ? Increased sensitivity to pain ? Constipation ? Nausea, vomiting, and dry mouth ? Sleepiness and dizziness ? Confusion ? Depression ? Low levels of testosterone that can result in lower sex drive, energy, and strength ? Itching and sweating RISKS ARE GREATER WITH: ? History of drug misuse, substance use disorder, or overdose ? Mental health conditions (such as depression or anxiety) ? Sleep apnea ? Older age (65 years and older) ? Avoid alcohol while taking prescription opioids. Also, unless specifically advised by your health care provider, medications to avoid include: ? Benzodiazepines (such as Xanax or Valium) ? Muscle relaxants (such as Soma or Flexeril) ? Hypnotics (such as Ambien or Lunesta) ? Other prescription opioids KNOW YOUR OPTIONS Talk to your health care provider about ways to manage your pain that don?t involve prescription opioids. Some of these options may actually work better and have fewer risks and side effects. Options may include: ? Pain relievers such as acetaminophen, ibuprofen, and naproxen ? Some medication that are also used for depression or seizures ? Physical therapy and exercise ? Cognitive behavioral therapy, a psychological, goal-directed approach, in which patients learn how to modify physical, behavioral, and emotional triggers of pain and stress. IF YOU ARE PRESCRIBED OPIOIDS FOR PAIN: ? Never take opioids in greater amounts or more often than prescribed. ? Follow up with your primary health care provider. o Work together to create a plan on how to manage your pain. o Talk about ways to help manage your pain that don?t involve prescription opioids. o Talk about any and all concerns and side effects. ? Help prevent misuse and abuse o Never sell or share prescription opioids. o Never use another person?s prescription opioids. ? Store prescription opioids in a secure place and out of reach of others (this may include visitors, children, friends, and family). ? Safely dispose of unused prescription opioids: Find your community drug take-back program or your pharmacy mail-back program, or flush them down the toilet, following guidance from the Food and Drug Administration (www.fda.gov/Drugs/Resour cesFor (more content not included)... Normal [facility] Blood GasesOrdered By: Juliana Parmar on 09-28-2023 Allens Test Not Applicable (09/28/23 3:32 PM) Normal [facility] Resp Auto SS Drawn by lab Invalid Interpretation Code [facility] Resp Auto SS FIO2 BG 21 1 Invalid Interpretation Code [facility] Resp Auto SS pCO2 Albert 50.6 mm[Hg] High 38.0 - 50.0 mmHg [facility] Resp Auto SS pH (Bld) 7.329 [pH] Normal 7.320 - 7.430 [facility] Resp Auto SS Sample Site OTHER (09/28/23 3:32 PM) Normal [facility] Resp Auto SS Sample Type Venous Draw (09/28/23 3:32 PM) Normal [facility] Resp Auto SS HEMATOLOGYOrdered By: SYSTEM SYSTEM on 09-28-2023 Basophil Absolute 0.1 E9/L Normal 0.0 - 0.2 E9/L Remisol Heme Basophils/100 WBC (Bld) 1.0 % Normal 0.0 - 2.0 % Remisol Heme Eos Absolute 0.1 E9/L Normal 0.0 - 0.5 E9/L Remisol Heme Eosinophils/100 WBC (Bld) 1.7 % Normal 0.0 - 8.0 % Remisol Heme Erythrocyte distribution width (RBC) [Ratio] 14.8 % High 10.9 - 14.2 % Remisol Heme Hematocrit (Bld) [Volume fraction] 46.0 % Normal 34.0 - 46.0 % Remisol Heme Hemoglobin (Bld) [Mass/Vol] 15.2 g/dL Normal 12.0 - 16.0 gm/dL Remisol Heme Lymph Absolute 1.5 E9/L Normal 1.0 - 4.0 E9/L Remisol Heme Lymphocytes/100 WBC (Bld) 20.2 % Normal 14.0 - 50.0 % Remisol Heme MCH (RBC) [Entitic mass] 30.5 pg Normal 27.0 - 34.0 pg Remisol Heme MCHC (RBC) [Mass/Vol] 32.8 g/dL Normal 31.4 - 36.0 gm/dL Remisol Heme MCV (RBC) [Entitic vol] 93.0 fL Normal 80.0 - 100.0 fL Remisol Heme [place] Absolute 0.4 E9/L Normal 0.2 - 1.0 E9/L Remisol Heme Monocytes/100 WBC (Bld) 5.5 % Normal 4.0 - 14.0 % Remisol Heme Neutro Absolute 5.2 E9/L Normal 2.0 - 7.5 E9/L Remisol Heme Neutro Auto 71.6 % Normal 36.0 - 75.0 % Remisol Heme Platelet 288.0 E9/L Normal 150.0 - 500.0 E9/L Remisol Heme Platelet mean volume (Bld) [Entitic vol] 9.3 fL Normal 6.4 - 10.8 fL Remisol Heme RBC 5.0 E12/L Normal 4.3 - 5.9 E12/L Remisol Heme WBC 7.3 E9/L Normal 4.0 - 11.0 E9/L Remisol Heme Hep Func Panelon 09-28-2023 Albumin [Mass/Vol] 4.2 g/dL Normal 3.3-5.0 [facility] Comment on above: Performed By: #### 2 959678, [id number], 3832266, 11290383, 0741385, 772652741, 72197662, 2157288 ####[facility] [address] [place] [address] Albumin/Globulin [Mass ratio] 1.3 {ratio} Normal 1.1-2.2 [facility] Comment on above: Performed By: #### 2 224681, 32018471, 6559996, 67405413, 4087101, 327302503, 59614814, 5439853 ####[facility] [address] [place] [address] Alk Phos 103 Int._Unit/L High 21-98 [facility] Comment on above: Performed By: #### 2 362450, 11600574, 2350082, 83186214, 8712849, 156599002, 26990308, 5813034 ####[facility] [address] [place] [address] ALT 27 Int._Unit/L Normal 6-46 [facility] Comment on above: Performed By: #### 2 664670, 00915947, 5792164, 36747625, 0449913, 763744216, 78719104, 4840119 ####[place] [place] [address] AST 14 Int._Unit/L Normal 5-43 [facility] Comment on above: Performed By: #### 2 842041, 67537034, 9969836, 42787582, 6479161, 294296176, 03492856, 9344235 ####[facility] [address] [place] [address] Bili Direct 0.1 mg/dL Normal 0.0-0.4 [facility] Comment on above: Performed By: #### 2 121067, 44180975, 0201627, 17821853, 5964276, 702876155, 71691914, 1052561 ####[facility] [address] [place] [address] Bili Indirect 0.6 mg/dL Normal 0.1-0.9 [facility] Comment on above: Performed By: #### 2 467202, 72195617, 9955980, 41453112, 4841345, 176524256, 63689211, 0333340 ####[facility] [address] [place] [address] Bili Total 0.7 mg/dL Normal 0.0-1.1 [facility] Comment on above: Performed By: #### 2 014829, 12389998, 0529567, 03455582, 6217863, 918600590, 14319504, 1447299 ####[facility] [address] [place] [address] Globulin (S) [Mass/Vol] 3.3 g/dL Normal 1.4-4.0 [facility] Comment on above: Performed By: #### 2 466240, 70643381, 2006787, 28591723, 8850822, 958295005, 97995838, 1745216 ####[facility] [address] [place] [address] Protein [Mass/Vol] 7.5 g/dL Normal 6.0-7.8 [facility] Comment on above: Performed By: #### 2 698649, 67095237, 1931931, 11639697, 2217090, 772842981, 85133068, 9608475 ####[facility] [address] [place] [address] Lipase Levelon 09-28-2023 Lipase Lvl 26 unit/L Normal 13-58 [facility] Comment on above: Performed By: #### 2 654588, 80641426, 9759031, 16678047, 1590819, 655968438, 35066885, 2287616 ####[facility] [address] [place] [address] Monitor Recordon 09-28-2023 Monitor Record [id number] Normal [facility] PT & PTTon 09-28-2023 aPTT Coag (PPP) [Time] 33.3 second(s) Normal 25.1-36.5 [facility] Comment on above: Result Comment: Para meter 15 days - 4 weeks 1 - 5 months 6 - 11 months 1 - 5 years 6 - 10 years 11 - 17 years PTT Mean: 35.4 (27.6-45.6) Mean: 33.5 (24.8-40.7) Mean: 32.4 (25.1-40.7) Mean: 31.6 (24.0-39.2) Mean: 31.6 (26.9-38.7) Mean: 31.0 (24.6-38.4) Pediatric Reference ranges were obtained from a study by ramon Holley prepared from 1437 samples obtained at 7 different centers using the same coagulation reagent and instrumentation as [facility]. Currently there are no coagulation studies available worldwide for children to 14 days, and no normal ranges. Heparin therapeutic range (represented by Anti-Factor Xa activity of 0.2 - 0.4 U/mL) corresponds to PTT of 56.6 - 109.0 sec. Performed By: #### 1 1236384 ####[facility] [address] [place] [address] INR Coag (PPP) [Relative time] 0.8 {INR} Invalid Interpretation Code [facility] Comment on above: Result Comment: INR results are specifically intended to assess patients stabilized on long-term Anticoagulation therapy suggested INR?s ?Less Intensive Anticoagulation? 2.0 ? 3.0 Conventional Range 3.0 ? 4.5 Performed By: #### 1 [id number] ####[facility] [address] [place] [address] PT Coag (PPP) [Time] 9.3 second(s) Low 9.4-12.5 [facility] Comment on above: Result Comment: 15 d ays - 4 weeks 1 - 5 months 6 -11 months 1 ? 5 years 6 ? 10 years 11 -17 years Mean: 11.2 (9.5 ? 12.6) Mean: 11.0 (9.7 ? 12.8) Mean: 11.0 (9.8 ? 13.0) Mean: 11.3 (9.9 ? 13.4) Mean: 11.7 (10.0 ? 14.6) Mean: 11.8 (10.0 - 14.1) Pediatric Reference ranges were obtained from a study by ramon Holley prepared from 1437 samples obtained at 7 different centers using the same coagulation reagent and instrumentation as [facility]. Currently there are no coagulation studies available worldwide for children to 14 days, and no normal ranges. Performed By: #### 1 [id number] ####[address] [place] [address] SEROLOGYOrdered By: Riri Chapman on 09-28-2023 Beta HCG ( test) Ql Negative (09/28/23 3:30 PM) Normal [facility] Man Sero Troponin 0 Hr.on 09-28-2023 Troponin 3.90 pg/mL Low 10.10-27.10 [facility] Comment on above: Result Comment: The 95% CI (Confidence Interval) PPV (Positive Predictive Value) for myocardial infarction in females is 38 pg/mL, in males 51 pg/mL. The results should be used in conjunction with clinical conditions of myocardial infarction. (Zoobean High Sensitivity Troponin I Instructions For Use, [employer]ate, April 2018) Performed By: #### 2 028363, 24522444, 6871019, 11988186, 4675030, 074770270, 62630349, 8849183 ####[address] [address] [place] [address] Troponin 3 Hr.on 09-28-2023 Troponin 3.60 pg/mL Low 10.10-27.10 [facility] Comment on above: Result Comment: The 95% CI (Confidence Interval) PPV (Positive Predictive Value) for myocardial infarction in females is 38 pg/mL, in males 51 pg/mL. The results should be used in conjunction with clinical conditions of myocardial infarction. (Zoobean High Sensitivity Troponin I Instructions For Use, [employer], April 2018) Performed By: #### 1 [id number] ####[address] [place] [address] UA With Cult Reflexon 2023 Bilirubin Ql (U) Negative Normal Negative [facility] Comment on above: Performed By: #### 1 0486049 ####[address] [place] [address] Clarity (U) CLEAR Normal Clear [facility] Comment on above: Performed By: #### 1 1704961 ####[address] [place] [address] Color (U) STRAW Abnormal Yellow [facility] Comment on above: Performed By: #### 1 6648881 ####[facility] [address] [place] [address] Epithelial cells.squamous LM.HPF (Urine sed) [#/Area] 0-2 Normal 0-2 [facility] Comment on above: Performed By: #### 1 4203580 ####[facility] [address] [place] [address] Glucose Test strip (U) [Mass/Vol] 3+ Abnormal Negative [facility] Comment on above: Performed By: #### 1 6430783 ####[facility] [address] [place] [address] Hemoglobin Ql (U) TRACE Abnormal Negative [facility] Comment on above: Performed By: #### 1 5818619 ####[address] [address] Ketones (U) [Mass/Vol] 1+ Abnormal Negative [facility] Comment on above: Performed By: #### 1 9018119 ####[facility] [address] [place] [address] [place].plasma/Lithi um.RBC (Bld) [Mass ratio] 0-3 Normal 0-3 [facility] Comment on above: Performed By: #### 1 6734152 ####[address] [address] Nitrite Ql (U) Negative Normal Negative [facility] Comment on above: Performed By: #### 1 2093514 ####[facility] [address] [place] [address] pH (U) 5.5 [pH] Invalid Interpretation Code 5.0-9.0 [facility] Comment on above: Performed By: #### 1 4725616 ####[facility] [address] [place] [address] Protein (U) [Mass/Vol] Negative Normal Negative [facility] Comment on above: Performed By: #### 1 9567808 ####[facility] [address] [place] [address] Specific gravity (U) [Rel density] 1.010 Invalid Interpretation Code 1.005-1.030 [facility] Comment on above: Performed By: #### 1 0756075 ####[place] [address] Type of Urine collection method Clean Catch Normal [facility] Comment on above: Performed By: #### 1 0733875 ####[place] [address] Urobilinogen Qn (U) 0.2 {Jesus'U}/dL Normal 0.0-1.0 [facility] Comment on above: Performed By: #### 1 9032213 ####[address] [address] WBC Auto Ql (U) Negative Normal Negative [facility] Comment on above: Performed By: #### 1 4202677 ####[place] [address] WBC LM.HPF (Urine sed) [#/Area] 0-5 Normal 0-5 [facility] Comment on above: Performed By: #### 1 0851810 ####[place] [address] URINALYSISOrdered By: Inga Chapman on 09-28-2023 Bilirubin Ql (U) Negative (09/28/23 3:30 PM) Normal Negative [facility] UA Auto SS Clarity (U) Clear (09/28/23 3:30 PM) Normal Clear [facility] UA Auto SS Color (U) Straw *ABN* (09/28/23 3:30 PM) Invalid Interpretation Code Yellow [facility] UA Auto SS Epithelial cells.squamous LM.HPF (Urine sed) [#/Area] 0-2 /HPF Normal 0-2/HPF [facility] UA Auto SS Glucose Test strip (U) [Mass/Vol] 3+ *ABN* (09/28/23 3:30 PM) Invalid Interpretation Code Negative [facility] UA Auto SS Hemoglobin Ql (U) Trace *ABN* (09/28/23 3:30 PM) Invalid Interpretation Code Negative [facility] UA Auto SS Ketones (U) [Mass/Vol] 1+ *ABN* (09/28/23 3:30 PM) Invalid Interpretation Code Negative [facility] UA Auto SS [place].plasma/Lithi um.RBC (Bld) [Mass ratio] 0-3 /HPF Normal 0-3/HPF [facility] UA Auto SS Nitrite Ql (U) Negative (09/28/23 3:30 PM) Normal Negative [facility] UA Auto SS pH (U) 5.5 *NA* (09/28/23 3:30 PM) Invalid Interpretation Code 5.0 - 9.0 [facility] UA Auto SS Protein (U) [Mass/Vol] Negative (09/28/23 3:30 PM) Normal Negative [facility] UA Auto SS Specific gravity (U) [Rel density] 1.010 *NA* (09/28/23 3:30 PM) Invalid Interpretation Code 1.005 - 1.030 [facility] UA Auto SS UA Spec Desc Clean Catch (09/28/23 3:30 PM) Normal [facility] UA Auto SS Urobilinogen Qn (U) 0.4126108 {Jesus'U}/dL Normal 0.0 - 1.0 EU/dL [facility] UA Auto SS WBC Auto Ql (U) Negative (09/28/23 3:30 PM) Normal Negative [facility] UA Auto SS WBC LM.HPF (Urine sed) [#/Area] 0-5 /HPF Normal 0-5/HPF [facility] UA Auto SS XR Chest Single Viewon 09-28 XR Chest Single View Exam Date/Time: 09/28/2023 15:48 EST Reason for Exam: Chest pain Report IMPRESSION: NO ACUTE CARDIOPULMONARY DISEASE. CLINICAL HISTORY: Chest pain COMPARISON: NONE. FINDINGS: Osseous structures intact. Cardiopericardial silhouette normal. Pulmonary vasculature normal. Lungs clear. Ordering Provider: Srinivas Easley FINAL REPORT Dictated: 09/28/2023 3:50 pm Gold Mohan MD Signed (Electronic Signature): 09/28/2023 3:50 pm Signed by: Gold Mohan MD Transcribed by: LIANNA Technologist: DPR Technical Comments Radiation Dose: Ka,r in mGy = na DAP = na Normal [facility] eGFRon 01-22-2024 eGFR 71 mL/min/1.73 m2 Normal >=59 [facility] Comment on above: Order Comment: Order added by Discern Expert. Performed By: #### 2 [id number], [id number], [id number], [id number], [id number] ####[facility] [address] [place] [address] Diabetic Self Management Edu cationon 07-29-2023 Diabetic Self Management Education [id number] Normal [facility] Patient Eval Forms Officeon 03-11-2023 Patient Eval Forms Office [id number]#1.00CD:1 27 Normal [facility] Initial Visit (Nephrology)on 03-04-2023 Initial Visit (Nephrology) Diagnoses/Problems Hypertension (401.9) (I10) Diabetes (250.00) (E11.9) CKD (chronic kidney disease) (585.9) (N18.9) Calcium kidney stone (592.0) (N20.0) Orders JOHN-WITH REFLEX TO ELENO; Status:Active; Requested for:04Mar2023; Comprehensive Metabolic Panel; Status:Active; Requested for:04Mar2023; Magnesium, Serum; Status:Active; Requested for:04Mar2023; Parathormone Intact, Serum; Status:Active; Requested for:04Mar2023; Total Protein, Urine Spot; Status:Active; Requested for:04Mar2023; Uric Acid, Serum; Status:Active; Requested for:04Mar2023; Urinalysis; Status:Active; Requested for:04Mar2023; Vitamin D 25-Hydroxy; Status:Active; Requested for:04Mar2023; Start: Losartan Potassium 25 MG Oral Tablet; TAKE 1 TABLET DAILY Patient Discussion/Summary Issues: 1. Chronic kidney disease with evolving baseline-renal function is improving and is currently at 1.20, she was as high as 2.84 in November 2. History of hypertension with relative hypotension at this time-blood pressure is currently good in the office however she states it does run in the 90s at home sometimes and she will hold her losartan, at this time we will decrease her losartan to 25 mg from losartan 50/12.5, she will check her blood pressure for the next 2 weeks, she will call me if her blood pressure does go less than 100, 3. Diabetes mellitus-not well controlled she is getting better control of her diabetes however her last hemoglobin A1c was 10.3, she does not have blood sugars in the 300s anymore 4. History of renal calculi-follows with Dr. Mcnally I discussed with her the things that can make her kidney function worse including her recurrent UTIs, renal calculi, uncontrolled diabetes and hypertension/hypotension This time we will decrease her losartan to 25 mg daily She will take her blood pressure every day for the next 2 weeks and will return with these readings She is working with her physician to get her blood sugars under better control She is not using NSAIDs She has not seen an medical billing clerk for over 2 years, I did give her a number so that she could call to make this appointment, I stressed with her the importance of good eye exams secondary to her diabetes mellitus She will follow-up in our office in 2 weeks and have lab work prior to her appointment I do not see any check of her urine so we will check for protein/albumin in her urine Provider Impressions Chronic kidney disease with evolving baseline Diabetes mellitus type 2 with last hemoglobin A1c 10.2 Recent history of renal calculi History of UTI Hypertension -with some hypotension at this time History of stroke with no residual effects Obesity Neuropathy Chief Complaint [facility]- ED FUV- LAB REVIEW 03/03/2023 History of Present IllnessPatient being seen post discharge from the emergency department secondary to abdominal distention and concern for renal failure Labs reviewed BMP with a glucose of 196 Sodium 139, potassium 4.7, chloride 106, bicarb 26 Renal functions BUN of 31 and creatinine of 1.2 In November her renal function got up to 2.02, at that time she had been admitted to the hospital with vomiting and diarrhea along with pyelonephritis She has a history of diabetes mellitus and her hemoglobin A1c in November 2022 was 10.2 She was recently hospitalized with a kidney stone at that time had acute kidney injury, she also had nausea and vomiting Her baseline creatinine appears to be wavering at this time She does have neuropathy with tingling in her feet She has a history of hypertension however she has been having some low blood pressures at home with pressures in the 90s, she states that then she will take her losartan every other day so that she does not have the symptoms Her blood sugars have been difficult to control but are getting better controlled at this time, she was having blood sugars in the 3 and 400s, lately she has been getting them down to the 250s She moved here from [place] a couple years ago prior to coming here she did take ibuprofen but she has not taken it recently She has recurrent UTIs She has vision problems but has not seen an medical billing clerk since she has been here She has a history of stroke with full recovery Review of Systems Constitutional: no fever, no chills, no recent weight gain and no recent weight loss. Eyes: blurred vision and eyesight problems, but no diplopia . as noted in HPI. ENT: no hearing loss, no earache, no sore throat, no swollen glands in the neck and no nasal discharge. Cardiovascular: no chest pain, no palpitations and no lower extremity edema. Respiratory: no shortness of breath, no chronic cough and no shortness of breath during exertion. Gastrointestinal: no abdominal pain, no constipation, no heartburn, no vomiting, no bloody stools and no change in bowel movements. Genitourinary: no dysuria and no hematuria . as noted in HPI. Musculoskeletal: no arthralgias and no myalgias . as noted in HPI. Neuropathy Skin: (more content not included)... Normal [place] Tobacco Screening.on 023 Tobacco use status HS b) No MP-Nephrology -[facility] Solomon 3 DO Work Phone: BASIC METABOLIC PANELon 02-06 Anion gap [Moles/Vol] 12 mmol/L Normal 10 - 20 [facility] Comment on above: Performed By: #### B MP #### [address] [address] Calcium [Mass/Vol] 9.2 mg/dL Normal 8.6 - 10.3 [facility] Comment on above: Performed By: #### B MP #### [id number] [place] [address] Chloride [Moles/Vol] 106 mmol/L Normal 98 - 107 [facility] Comment on above: Performed By: #### B MP #### [address] [address] Creatinine [Mass/Vol] 1.20 mg/dL High 0.50 - 1.05 [facility] Comment on above: Performed By: #### B MP #### [address] [address] GFR/1.73 sq M.predicted among non-blacks MDRD (S/P/Bld) [Vol rate/Area] 57 mL/min/{1.73_m2} Abnormal >90 [facility] Comment on above: Result Comment: CALC ULATIONS OF ESTIMATED GFR ARE PERFORMED USING THE 2020 CKD-EPI STUDY REFIT EQUATION WITHOUT THE RACE VARIABLE FOR THE IDMS-TRACEABLE CREATININE METHODS. https://jasn.asnjournals.org/content/early//ASN.3809681 988 Performed By: #### B MP #### [address] [address] Glucose [Mass/Vol] 196 mg/dL High 74 - 99 [facility] Comment on above: Performed By: #### B MP #### [address] [address] HCO3 (Bld) [Moles/Vol] 26 mmol/L Normal 21 - 32 [facility] Comment on above: Performed By: #### B MP #### [address] [address] Potassium [Moles/Vol] 4.7 mmol/L Normal 3.5 - 5.3 [facility] Comment on above: Performed By: #### B MP #### [address] [address] Sodium [Moles/Vol] 139 mmol/L Normal 136 - 145 [facility] Comment on above: Performed By: #### B MP #### [address] [address] Urea nitrogen [Mass/Vol] 31 mg/dL High 6 - 23 [facility] Comment on above: Performed By: #### B MP #### [address] [address] Laboratory - Chemistry and C hemistry - challengeon 03-03-2023 Anion gap [Moles/Vol] 12 mmol/L 10 - [address] [facility]ph[facility] [address] DO Work Phone: Calcium [Mass/Vol] 9.2 mg/dL 8.6 - 10.3 [place] [address] DO Work Phone: Chloride [Moles/Vol] 106 mmol/L 98 - 107 -N [place] [address] DO Work Phone: [phone] CO2 [Moles/Vol] 26 mmol/L 21 - 32 -Nephro logy [place] [address] DO Work Phone: [phone] Creatinine [Mass/Vol] 1.20 mg/dL above high threshold See Below [place] [address] DO Work Phone: Comment on above: Reference Range: 0.5 0 - 1.05 Glucose [Mass/Vol] 196 mg/dL above high threshold 74 - 99 [place] [address] DO Work Phone: Potassium [Moles/Vol] 4.7 mmol/L 3.5 - 5.3 [place] [address] DO Work Phone: Sodium [Moles/Vol] 139 mmol/L 136 - 145 [place] [address] DO Work Phone: Urea nitrogen [Mass/Vol] 31 mg/dL above high threshold 6 - 23 [place] [address] DO Work Phone: No Panel Informationon 03-03 57 {mL/min/1.73m2} Abnormal >90 [place] [address] DO Work Phone: Comment on above: CALCULATIONS OF SACHIN MATED GFR ARE PERFORMED USING THE 2020 CKD-EPI STUDY REFIT EQUATION WITHOUT THE RACE VARIABLE FOR THE IDMS-TRACEABLE CREATININE METHODS.https://jasn.asnjournals.org/content//ASN .9569111560 Consent for Treatmenton 02-06 Consent for Treatment [id number]#1.00CD:12 7 Normal [facility] CBC AND DIFFERENTIALon 02-10 % AUTOMATED IMMATURE GRAN 0.1 % Normal 0.0 - 0.[address] [facility] Comment on above: Result Comment: Alla ture Granulocyte Count (IG) includes promyelocytes, myelocytes and metamyelocytes but does not include bands. Percent differential counts (%) should be interpreted in the context of the absolute cell counts (cells/L). Performed By: #### C BCDF ####[address] [address] Basophils (Bld) [#/Vol] 0.06 10*3/uL Normal 0.00 - 0.[address] [facility] Comment on above: Performed By: #### C BCDF ####[address] [address] Basophils/100 WBC (Bld) 0.8 % Normal 0.0 - 2.[address] [facility] Comment on above: Performed By: #### C BCDF ####[address] [address] Eosinophils (Bld) [#/Vol] 0.14 10*3/uL Normal 0.00 - 0.[address] [facility] Comment on above: Performed By: #### C BCDF ####[address] [address] Eosinophils/100 WBC (Bld) 1.9 % Normal 0.0 - 6.[address] [facility] Comment on above: Performed By: #### C BCDF ####[address] [address] Erythrocyte distribution width (RBC) [Ratio] 14.1 % Normal 11.5 - 14.[address] [facility] Comment on above: Performed By: #### C BCDF ####[address] [address] Hematocrit (Bld) [Volume fraction] 39.9 % Normal 36.0 - 46.[address] [facility] Comment on above: Performed By: #### C BCDF ####[address] [address] Hemoglobin (Bld) [Mass/Vol] 12.8 g/dL Normal 12.0 - 16.[address] [facility] Comment on above: Performed By: #### C BCDF ####[address] [address] Lymphocytes (Bld) [#/Vol] 2.80 10*3/uL Normal 1.20 - 4.[address] [facility] Comment on above: Performed By: #### C BCDF ####[address] [address] Lymphocytes/100 WBC (Bld) 37.2 % Normal 13.0 - 44.[address] [facility] Comment on above: Performed By: #### C BCDF ####[address] [address] MCHC (RBC) [Mass/Vol] 32.1 g/dL Normal 32.0 - 36.[address] [facility] Comment on above: Performed By: #### C BCDF ####[address] [address] MCV (RBC) [Entitic vol] 90 fL Normal 80 - [address] [facility] Comment on above: Performed By: #### C BCDF ####[address] [address] Monocytes (Bld) [#/Vol] 0.54 10*3/uL Normal 0.10 - 1.[address] [facility] Comment on above: Performed By: #### C BCDF ####[address] [address] Monocytes/100 WBC (Bld) 7.2 % Normal 2.0 - 10.[address] [facility] Comment on above: Performed By: #### C BCDF ####[address] [address] Neutrophils (Bld) [#/Vol] 3.97 10*3/uL Normal 1.20 - 7.[address] [facility] Comment on above: Result Comment: Perc ent differential counts (%) should be interpreted in the context of the absolute cell counts (cells/L). Performed By: #### C BCDF ####[address] [address] Neutrophils/100 WBC (Bld) 52.8 % Normal 40.0 - 80.[address] [facility] Comment on above: Performed By: #### C BCDF ####[address] [address] Platelets (Bld) [#/Vol] 281 10*3/uL Normal 150 - [address] [facility] Comment on above: Performed By: #### C BCDF ####[address] [address] RBC 4.44 x10E12/L Normal 4.00 - 5.[address] [facility] Comment on above: Performed By: #### C BCDF ####[address] [address] WBC (Bld) [#/Vol] 7.5 10*3/uL Normal 4.4 - 11.3 [facility] Comment on above: Performed By: #### C BCDF ####[address] [address] COMPREHENSIVE PANELon 2022 Albumin [Mass/Vol] 4.0 g/dL Normal 3.4 - 5.0 [facility] Comment on above: Performed By: #### C MP ####[address] [address] ALP [Catalytic activity/Vol] 66 U/L Normal 33 - [address] [facility] Comment on above: Performed By: #### C MP ####[address] [address] ALT [Catalytic activity/Vol] 17 U/L Normal 7 - [address] [facility] Comment on above: Result Comment: Bridget ents treated with Sulfasalazine may generate falsely decreased results for ALT. Performed By: #### C MP ####[address] [address] Anion gap [Moles/Vol] 10 mmol/L Normal 10 - [address] [facility] Comment on above: Performed By: #### C MP ####[address] [address] AST [Catalytic activity/Vol] 11 U/L Normal 9 - [address] [facility] Comment on above: Performed By: #### C MP ####[address] [address] Bilirubin [Mass/Vol] 0.4 mg/dL Normal 0.0 - 1.2 [facility] Comment on above: Performed By: #### C MP ####[address] [address] Calcium [Mass/Vol] 9.9 mg/dL Normal 8.6 - 10.3 [facility] Comment on above: Performed By: #### C MP ####[address] [address] [address] Chloride [Moles/Vol] 102 mmol/L Normal 98 - 107 [facility] Comment on above: Performed By: #### C MP ####[address] [address] Creatinine [Mass/Vol] 1.37 mg/dL High 0.50 - 1.[address] [facility] Comment on above: Performed By: #### C MP ####[address] [address] GFR/1.73 sq M.predicted among non-blacks MDRD (S/P/Bld) [Vol rate/Area] 49 mL/min/{1.73_m2} Abnormal >[address] [facility] Comment on above: Result Comment: CALC ULATIONS OF ESTIMATED GFR ARE PERFORMED USING THE 2020 CKD-EPI STUDY REFIT EQUATION WITHOUT THE RACE VARIABLE FOR THE IDMS-TRACEABLE CREATININE METHODS.https://jasn.asnjournals.org/content//ASN .2146241263 Performed By: #### C MP ####[address] [address] Glucose [Mass/Vol] 151 mg/dL High 74 - 99 [facility] Comment on above: Performed By: #### C MP ####[address] [address] HCO3 (Bld) [Moles/Vol] 28 mmol/L Normal 21 - [address] [facility] Comment on above: Performed By: #### C MP ####[address] [address] Potassium [Moles/Vol] 4.6 mmol/L Normal 3.5 - 5.[address] [facility] Comment on above: Performed By: #### C MP ####[address] [address] Protein [Mass/Vol] 7.3 g/dL Normal 6.4 - 8.2 [facility] Comment on above: Performed By: #### C MP ####[address] [address] Sodium [Moles/Vol] 135 mmol/L Low 136 - 145 [facility] Comment on above: Performed By: #### C MP ####[address] [address] Urea nitrogen [Mass/Vol] 33 mg/dL High 6 - [address] [facility] Comment on above: Performed By: #### C MP ####[address] [address] [address] ABDOMEN AND PELVIS WO CON TRASTon 02-10-2023 CT ABDOMEN AND PELVIS WO CONTRAST Normal [facility] CT Abdomen and Pelvis withou t Contraston 02-10-2023 CT Abdomen and Pelvis WO contrast Normal [facility] 3 DO Work Phone: Complete Blood Count + Diffe rentialon 02-10-2023 Basophils/100 WBC (Bld) 0.8 % 0.0 - 2.[address] [address] [facility]Ne[facility] 3 DO Work Phone: Erythrocyte distribution width (RBC) [Ratio] 14.1 % See Below [facility]Neph[facility] 3 DO Work Phone: Comment on above: Reference Range: 11. 5 - 14.5 Hematocrit (Bld) [Volume fraction] 39.9 % See Below [place] [address] DO Work Phone: Comment on above: Reference Range: 36. 0 - 46.0 Hemoglobin (Bld) [Mass/Vol] 12.8 g/dL See Below [place] [address] DO Work Phone: Comment on above: Reference Range: 12. 0 - 16.0 Lymphocytes/100 WBC (Bld) 37.2 % See Below [place] [address] DO Work Phone: Comment on above: Reference Range: 13. 0 - 44.0 MCHC (RBC) [Mass/Vol] 32.1 g/dL See Below [place] [address] DO Work Phone: Comment on above: Reference Range: 32. 0 - 36.0 MCV (RBC) [Entitic vol] 90 fL 80 - 100 [place] [address] DO Work Phone: Monocytes/100 WBC (Bld) 7.2 % 2.0 - 10.0 [place] [address] DO Work Phone: Neutrophils/100 WBC (Bld) 52.8 % See Below [place] [address] DO Work Phone: Comment on above: Reference Range: 40. 0 - 80.0 Platelets (Bld) [#/Vol] 281 10*3/uL 150 - 450 [place] [address] DO Work Phone: RBC (Bld) [#/Vol] 4.44 {x10E12/L} See Below [place] [address] DO Work Phone: Comment on above: Reference Range: 4.0 0 - 5.20 WBC (Bld) [#/Vol] 7.5 10*3/uL 4.4 - 11.3 [place] [address] DO Work Phone: Complete Blood Count + Differential 0.06 {x10E9/L} See Below [place] [address] DO Work Phone: Comment on above: Reference Range: 0.0 0 - 0.10 Complete Blood Count + Differential 0.14 {x10E9/L} See Below [place] [address] DO Work Phone: Comment on above: Reference Range: 0.0 0 - 0.70 Complete Blood Count + Differential 0.54 {x10E9/L} See Below [place] [address] DO Work Phone: Comment on above: Reference Range: 0.1 0 - 1.00 Complete Blood Count + Differential 2.80 {x10E9/L} See Below [place] [address] DO Work Phone: Comment on above: Reference Range: 1.2 0 - 4.80 Complete Blood Count + Differential 3.97 {x10E9/L} See Below [place] [address] DO Work Phone: Comment on above: Reference Range: 1.2 0 - 7.70 Percent differential counts (%) should be interpreted in the context of the absolute cell counts (cells/L). Complete Blood Count + Differential 1.9 % 0.0 - 6.0 [place] [address] DO Work Phone: Complete Blood Count + Differential 0.1 % 0.0 - 0.9 [place] [address] DO Work Phone: Comment on above: Immature Granulocyte Count (IG) includes promyelocytes, myelocytes and metamyelocytes but does not include bands. Percent differential counts (%) should be interpreted in the context of the absolute cell counts (cells/L). Cult, Urineon 02-10-2023 Bacteria identified Cx Nom (U) [place] [address] DO Work Phone: [phone] LACTATEon 02-10-2023 Lactate [Moles/Vol] 1.1 mmol/L Normal 0.4 - 2.0 [facility] Comment on above: Result Comment: [place] puncture immediately after or during the administration of Metamizole may lead to falsely low results. Testing should be performed immediately prior to Metamizole dosing. Performed By: #### L ACT ####[facility] [place] [address] Laboratory - Chemistry and C hemistry - challengeon 02-10-2023 Albumin BCP dye [Mass/Vol] 4.0 g/dL 3.4 - 5.0 [place] [address] DO Work Phone: [phone] ALP [Catalytic activity/Vol] 66 U/L 33 - 110 [place] [address] DO Work Phone: [phone] ALT With P-5'-P [Catalytic activity/Vol] 17 U/L 7 - 45 [place] [address] DO Work Phone: [phone] Comment on above: Patients treated wit h Sulfasalazine may generate falsely decreased results for ALT. Anion gap [Moles/Vol] 10 mmol/L 10 - 20 [place] [address] DO Work Phone: [phone] AST With P-5'-P [Catalytic activity/Vol] 11 U/L 9 - 39 [place] [address] DO Work Phone: Bilirubin [Mass/Vol] 0.4 mg/dL 0.0 - 1.2 -N [place] [address] DO Work Phone: [phone] Calcium [Mass/Vol] 9.9 mg/dL 8.6 - 10.3 -Nep hrology [place] [address] DO Work Phone: [phone] Chloride [Moles/Vol] 102 mmol/L 98 - 107 -N ephrology [place] [address] DO Work Phone: [phone] CO2 [Moles/Vol] 28 mmol/L 21 - 32 -Nephro logy [place] [address] DO Work Phone: Creatinine [Mass/Vol] 1.37 mg/dL above high threshold See Below [place] [address] DO Work Phone: Comment on above: Reference Range: 0.5 0 - 1.05 Glucose [Mass/Vol] 151 mg/dL above high threshold 74 - 99 [place] [address] DO Work Phone: [phone] Potassium [Moles/Vol] 4.6 mmol/L 3.5 - 5.3 [place] [address] DO Work Phone: Protein [Mass/Vol] 7.3 g/dL 6.4 - 8.2 -Nep [place] [address] DO Work Phone: Sodium [Moles/Vol] 135 mmol/L below low threshold 136 - 145 [place] [address] DO Work Phone: Urea nitrogen [Mass/Vol] 33 mg/dL above high threshold 6 - 23 [place] [address] DO Work Phone: Lactate, Levelon 02-10-2023 Lactate [Moles/Vol] 1.1 mmol/L 0.4 - 2.0 -Ne phr[place] [address] DO Work Phone: Comment on above: Venipuncture immedia tely after or during the administration of Metamizole may lead to falsely low results. Testing should be performed immediately prior to Metamizole dosing. No Panel Informationon 02-10 49 {mL/min/1.73m2} Abnormal >90 -[place] [address] DO Work Phone: Comment on above: CALCULATIONS OF SACHIN MATED GFR ARE PERFORMED USING THE 2020 CKD-EPI STUDY REFIT EQUATION WITHOUT THE RACE VARIABLE FOR THE IDMS-TRACEABLE CREATININE METHODS.https://jasn.asnjournals.org/content/early/ASN .7430181371 Pre-Certification Formon Pre-Certification Form [id number]#1.00CD:12 7 Normal [facility] Provider Note - ED v3on 06-0 Provider Note - ED v3 Normal [facility] Risk Screen - Adult Emergenc yon 02-10-2023 Risk Screen - Adult Emergency Normal [facility] TROPONIN I, HIGH SENSITIVITY on 02-10-2023 Tropinin I.cardiac panel High sensitivity method 3 ng/L 0 - -[facility] 3 DO Work Phone: Comment on above: .Less than 99th perc entile of normal range cutoff-Female and children under 18 years old <14 ng/L; Male <21 ng/L: NegativeRepeat testing should be performed if clinically indicated. .Female and children under 18 years old 14-50 ng/L; Male 21-50 ng/L:Consistent with possible cardiac damage and possible increased clinical risk. Serial measurements may help to assess extent of myocardial damage. .>50 ng/L: Consistent with cardiac damage, increased clinical risk andmyocardial infarction. Serial measurements may help assess extent of myocardial damage. . NOTE: Children less than 1 year old may have higher baseline troponin levels and results should be interpreted in conjunction with the overall clinical context. .NOTE: Troponin I testing is performed using a different testing methodology at [facility] than at other [facility] hospitals. Direct result comparisons should only be made within the same method. TROPONIN I, HIGH SENSITIVITY 3 ng/L Normal 0 - [address] [facility] Comment on above: Result Comment: .Les s than 99th percentile of normal range cutoff-Female and children under 18 years old <14 ng/L; Male <21 ng/L: NegativeRepeat testing should be performed if clinically indicated..Female and children under 18 years old 14-50 ng/L; Male 21-50 ng/L:Consistent with possible cardiac damage and possible increased clinicalrisk. Serial measurements may help to assess extent of myocardial damage..>50 ng/L: Consistent with cardiac damage, increased clinical risk andmyocardial infarction. Serial measurements may help assess extent ofmyocardial damage..NOTE: Children less than 1 year old may have higher baseline troponinlevels and results should be interpreted in conjunction with the overallclinical context..NOTE: Troponin I testing is performed using a differenttesting methodology at [facility] than [facility]. Direct result comparisons should onlybe made within the same method. Performed By: #### T [facility] ####[place] [address] TSHon 02-10-2023 TSH Qn 2.54 m[IU]/L Normal 0.44 - 3.[address] [facility] Comment on above: Result Comment: TSH testing is performed using different testing methodology at [facility] than [facility]. Direct result comparisons should only be made within the same method. Performed By: #### T [facility] ####[place] [id number] TSH - Thyroid Stimulating Ho rmone, Serumon 02-10-2023 TSH Qn 2.54 m[IU]/L See Below MP-Nephrolog y -[facility] 3 DO Work Phone: Comment on above: Reference Range: 0.4 4 - 3.98 TSH testing is performed using different testing methodology at [facility] than at other [facility]. Direct result comparisons should only be made within the same method. Triage - EDon 02-10-2023 Triage - ED Normal [facility] UA MICROSCOPICon 02-10-2023 BACTERIA 1+ /HPF Abnormal [facility] Comment on above: Performed By: #### U AMIC ####[address] [address] RBC 1 /HPF Normal 0-[address] [facility] Comment on above: Performed By: #### U AMIC ####[address] [address] SQUAMOUS EPITH. CELLS 11 /HPF Normal [facility] Comment on above: Performed By: #### U AMIC ####[address] [address] WBC 8 /HPF Abnormal 0-[address] [facility] Comment on above: Performed By: #### U AMIC ####[address] [address] URINALYSIS WITH CULTURE IF I NDICATEDon 02-10-2023 Appearance (U) HAZY Normal CLEAR [facility] Comment on above: Performed By: #### U ARFX ####[address] [address] Bilirubin Ql (U) Negative Normal NEGATIVE [facility] Comment on above: Performed By: #### U ARFX ####[address] [address] Color (U) Yellow See Below -Nephrology -[facility] 3 DO Work Phone: Comment on above: Reference Range: STR AW,YELLOW Color (U) Yellow Normal STRAW,YELLO W [facility] Comment on above: Performed By: #### U ARFX ####[address] [address] Glucose Ql (U) >=500(3+) Abnormal NEGATIVE MP-Nephrol ogy -[facility] 3 DO Work Phone: Glucose Ql (U) >=500(3+) Abnormal NEGATIVE [facility] Comment on above: Performed By: #### U ARFX ####[address] [address] Hemoglobin Ql (U) Negative Normal NEGATIVE [facility] Comment on above: Performed By: #### U ARFX ####[address] [address] Ketones Ql (U) Negative NEGATIVE MP-Nephrol ogy -[facility] 3 DO Work Phone: Ketones Ql (U) Negative Normal NEGATIVE [facility] Comment on above: Performed By: #### U ARFX ####[address] [address] Leukocyte esterase Test strip Ql (U) TRACE Abnormal NEGATIVE [facility] [place] [address] DO Work Phone: Leukocyte esterase Test strip Ql (U) TRACE Abnormal NEGATIVE [facility] Comment on above: Performed By: #### U ARFX ####[address] [address] Nitrite Ql (U) Negative Normal NEGATIVE [facility] Comment on above: Performed By: #### U ARFX ####[address] [address] pH (U) 5.0 [pH] 5.0 - 8.[address] [facility] [address] [place] [address] DO Work Phone: [phone] pH (U) 5.0 [pH] Normal 5.0 - 8.[address] [facility] Comment on above: Performed By: #### U ARFX ####[address] [address] Protein (U) [Mass/Vol] Negative NEGATIVE -Nephrology [place] [address] DO Work Phone: Protein Ql (U) Negative Normal NEGATIVE [facility] Comment on above: Performed By: #### U ARFX ####[address] [address] RBC (U) [#/Vol] Negative NEGATIVE -Nephro logy [place] [address] DO Work Phone: Specific gravity (U) [Rel density] 1.[address] [facility] [place] [address] DO Work Phone: Comment on above: Reference Range: 1.0 05 - 1.035 Specific gravity (U) [Rel density] 1.021 Normal 1.005 - 1.[address] [facility] Comment on above: Performed By: #### U ARFX ####[address] [address] Urobilinogen (U) [Mass/Vol] mg/dL Normal 0.0 - 1.[address] [facility] Comment on above: Performed By: #### U ARFX ####[facility] [place] [address] URINALYSIS WITH CULTURE IF INDICATED Negative NEGATIVE [facility] [place] [address] DO Work Phone: [phone] URINALYSIS WITH CULTURE IF INDICATED <2.0 0.0 - 1.9 [facility] [place] [address] DO Work Phone: [phone] URINALYSIS WITH CULTURE IF INDICATED HAZY CLEAR [facility] [place] [address] DO Work Phone: [phone] URINE CULTURE,BACTERIALon URINE CULTURE,BACTERIAL Normal [facility] Comment on above: Performed By: #### U [facility] ####[id number] [place] [address] Urinalysis, Microscopicon Urinalysis, Microscopic 1+ Abnormal [place] [address] DO Work Phone: [phone] Urinalysis, Microscopic 11 {/HPF} [place] [address] DO Work Phone: [phone] Urinalysis, Microscopic 1 {/HPF} 0-5 [facility] 3 DO Work Phone: [phone] Urinalysis, Microscopic 8 {/HPF} Abnormal 0-5 [facility] 3 DO Work Phone: [phone] Physician Orderon 02-06-2023 Physician Order [id number]#[id number]:127 Normal [facility] Consent for Treatmenton 01-06 Consent for Treatment [id number]#[id number]:12 7 Normal [facility] ARTERIAL FULL PANELon 2022 Anion gap [Moles/Vol] 12 mmol/L Normal 10 - [address] [facility] Comment on above: Performed By: #### A FPA4 ####[place] [id number] BASE EXCESS-BLOOD -4.7 mmol/L Low -2.0 - 3.0 [facility] Comment on above: Performed By: #### A FPA4 ####[place] [address] BICARB, CALCULATED 21.1 mmol/L Low 22.0 - 26.0 [facility] Comment on above: Performed By: #### A FPA4 ####[place] [address] CALCIUM,IONIZED 1.24 mmol/L Normal 1.10 - 1.33 [facility] Comment on above: Performed By: #### A FPA4 ####[place] [address] Chloride [Moles/Vol] 103 mmol/L Normal 98 - 107 [facility] Comment on above: Performed By: #### A FPA4 ####[place] [address] FIO2 21 % Normal [facility] Comment on above: Performed By: #### A FPA4 ####[place] [id number] Glucose [Mass/Vol] 228 mg/dL High 74 - 99 [facility] Comment on above: Performed By: #### A FPA4 ####[place] [address] Hematocrit (Bld) [Volume fraction] 36.0 % Normal 36.0 - 46.[address] [facility] Comment on above: Performed By: #### A FPA4 ####[place] [address] Hemoglobin (Bld) [Mass/Vol] 11.9 g/dL Low 12.0 - 16.[address] [facility] Comment on above: Performed By: #### A FPA4 ####[place] [address] Lactate [Moles/Vol] 1.5 mmol/L Normal 0.4 - 2.0 [facility] Comment on above: Performed By: #### A FPA4 ####[place] [address] OXY HGB 94.5 % Normal 94.0 - 98.[address] [facility] Comment on above: Performed By: #### A FPA4 ####[place] [address] Oxygen (Bld) [Partial pressure] 77 mm[Hg] Low 85 - [address] [facility] Comment on above: Performed By: #### A FPA4 ####[place] [address] PATIENT TEMPERATURE 37.0 degrees C Normal [facility] Comment on above: Result Comment: NOTE : PATIENT RESULTS ARE NOT CORRECTED FOR TEMPERATURE. Performed By: #### A FPA4 ####[place] [address] PCO2 41 mmHg Normal 38 - [address] [facility] Comment on above: Performed By: #### A FPA4 ####[place] [address] pH (Bld) 7.32 [pH] Low 7.38 - 7.[address] [facility] Comment on above: Performed By: #### A FPA4 ####[place] [address] Potassium [Moles/Vol] 4.1 mmol/L Normal 3.5 - 5.[address] [facility] Comment on above: Performed By: #### A FPA4 ####[place] [address] SO2 97 % Normal 94 - [address] [facility] Comment on above: Performed By: #### A FPA4 ####[place] [address] Sodium [Moles/Vol] 132 mmol/L Low 136 - 145 [facility] Comment on above: Performed By: #### A FPA4 ####[place] [address] BASIC METABOLIC PANELon 05- Anion gap [Moles/Vol] 10 mmol/L Normal 10 - [address] [facility] Comment on above: Performed By: #### B MP ####[address] [address] Calcium [Mass/Vol] 8.7 mg/dL Normal 8.6 - 10.3 [facility] Comment on above: Performed By: #### B MP ####[address] [address] Chloride [Moles/Vol] 104 mmol/L Normal 98 - 107 [facility] Comment on above: Performed By: #### B MP ####[address] [address] Creatinine [Mass/Vol] 1.63 mg/dL High 0.50 - 1.[address] [facility] Comment on above: Performed By: #### B MP ####[address] [address] GFR/1.73 sq M.predicted among non-blacks MDRD (S/P/Bld) [Vol rate/Area] 39 mL/min/{1.73_m2} Abnormal >[address] [facility] Comment on above: Result Comment: CALC ULATIONS OF ESTIMATED GFR ARE PERFORMED USING THE 2020 CKD-EPI STUDY REFIT EQUATION WITHOUT THE RACE VARIABLE FOR THE IDMS-TRACEABLE CREATININE METHODS.https://jasn.asnjournals.org/content//ASN .7424075752 Performed By: #### B MP ####[address] [address] Glucose [Mass/Vol] 171 mg/dL High 74 - 99 [facility] Comment on above: Performed By: #### B MP ####[address] [address] HCO3 (Bld) [Moles/Vol] 25 mmol/L Normal 21 - [address] [facility] Comment on above: Performed By: #### B MP ####[address] [address] Potassium [Moles/Vol] 4.0 mmol/L Normal 3.5 - 5.[address] [facility] Comment on above: Performed By: #### B MP ####[address] [address] Sodium [Moles/Vol] 135 mmol/L Low 136 - 145 [facility] Comment on above: Performed By: #### B MP ####[address] [address] Urea nitrogen [Mass/Vol] 37 mg/dL High 6 - [address] [facility] Comment on above: Performed By: #### B MP ####[address] [address] BETA-HYDROXYBUTYRATEon 01-19 BETA-HYDROXYBUTYRATE <0.01 Low 0.02 - 0.27 [facility] Comment on above: Result Comment: The beta-hydroxybutyrate test performance characteristics have been validated by [facility] laboratory. This test has not been approved by the FDA; however, such approval is not necessary. Performed By: #### B HB2 ####[address] [address] BLOOD CULTURE, BACTERIALon 0 01-19-2023 BLOOD CULTURE, BACTERIAL Normal [facility] Comment on above: Performed By: #### B LDC ####[id number] [place] [address] CBC AND DIFFERENTIALon 01-19 % AUTOMATED IMMATURE GRAN 0.3 % Normal 0.0 - 0.[address] [facility] Comment on above: Result Comment: Alla ture Granulocyte Count (IG) includes promyelocytes, myelocytes and metamyelocytes but does not include bands. Percent differential counts (%) should be interpreted in the context of the absolute cell counts (cells/L). Performed By: #### C BCDF ####[address] [address] Basophils (Bld) [#/Vol] 0.05 10*3/uL Normal 0.00 - 0.[address] [facility] Comment on above: Performed By: #### C BCDF ####[address] [address] Basophils/100 WBC (Bld) 0.5 % Normal 0.0 - 2.[address] [facility] Comment on above: Performed By: #### C BCDF ####[address] [address] Eosinophils (Bld) [#/Vol] 0.21 10*3/uL Normal 0.00 - 0.[address] [facility] Comment on above: Performed By: #### C BCDF ####[address] [address] Eosinophils/100 WBC (Bld) 2.0 % Normal 0.0 - 6.[address] [facility] Comment on above: Performed By: #### C BCDF ####[address] [address] Erythrocyte distribution width (RBC) [Ratio] 14.5 % Normal 11.5 - 14.[address] [facility] Comment on above: Performed By: #### C BCDF ####[address] [address] Hematocrit (Bld) [Volume fraction] 36.2 % Normal 36.0 - 46.[address] [facility] Comment on above: Performed By: #### C BCDF ####[address] [address] Hemoglobin (Bld) [Mass/Vol] 11.6 g/dL Low 12.0 - 16.[address] [facility] Comment on above: Performed By: #### C BCDF ####[address] [address] Lymphocytes (Bld) [#/Vol] 1.93 10*3/uL Normal 1.20 - 4.[address] [facility] Comment on above: Performed By: #### C BCDF ####[address] [address] Lymphocytes/100 WBC (Bld) 18.4 % Normal 13.0 - 44.[address] [facility] Comment on above: Performed By: #### C BCDF ####[address] [address] MCHC (RBC) [Mass/Vol] 32.0 g/dL Normal 32.0 - 36.[address] [facility] Comment on above: Performed By: #### C BCDF ####[address] [address] MCV (RBC) [Entitic vol] 90 fL Normal 80 - [address] [facility] Comment on above: Performed By: #### C BCDF ####[address] [address] Monocytes (Bld) [#/Vol] 0.96 10*3/uL Normal 0.10 - 1.[address] [facility] Comment on above: Performed By: #### C BCDF ####[address] [address] Monocytes/100 WBC (Bld) 9.2 % Normal 2.0 - 10.[address] [facility] Comment on above: Performed By: #### C BCDF ####[address] [address] Neutrophils (Bld) [#/Vol] 7.29 10*3/uL Normal 1.20 - 7.[address] [facility] Comment on above: Result Comment: Perc ent differential counts (%) should be interpreted in the context of the absolute cell counts (cells/L). Performed By: #### C BCDF ####[address] [address] Neutrophils/100 WBC (Bld) 69.6 % Normal 40.0 - 80.[address] [facility] Comment on above: Performed By: #### C BCDF ####[address] [address] Platelets (Bld) [#/Vol] 256 10*3/uL Normal 150 - [address] [facility] Comment on above: Performed By: #### C BCDF ####[address] [address] RBC 4.02 x10E12/L Normal 4.00 - 5.[address] [facility] Comment on above: Performed By: #### C BCDF ####[address] [address] WBC (Bld) [#/Vol] 10.5 10*3/uL Normal 4.4 - 11.3 [facility] Comment on above: Performed By: #### C BCDF ####[address] [address] CHEST 1 VIEWon 01-19-2023 CHEST 1 VIEW [address] [facility] CT ABDOMEN AND PELVIS WO CON TRASTon 01-19-2023 CT ABDOMEN AND PELVIS WO CONTRAST Normal [facility] GLUCOSE-POCTon 01-19-2023 Glucose [Mass/Vol] 176 mg/dL High 74 - 99 [facility] Comment on above: Performed By: #### G MAURA ####[place] [id number] HEPATIC FUNCTION PANELon Albumin [Mass/Vol] 3.5 g/dL Normal 3.4 - 5.0 [facility] Comment on above: Performed By: #### H EPFP ####[place] [address] ALP [Catalytic activity/Vol] 61 U/L Normal 33 - [address] [facility] Comment on above: Performed By: #### H EPFP ####[address] [address] ALT [Catalytic activity/Vol] 18 U/L Normal 7 - [address] [facility] Comment on above: Result Comment: Bridget ents treated with Sulfasalazine may generate falsely decreased results for ALT. Performed By: #### H EPFP ####[place] [address] AST [Catalytic activity/Vol] 15 U/L Normal 9 - [address] [facility] Comment on above: Performed By: #### H EPFP ####[address] [address] Bilirubin [Mass/Vol] 0.4 mg/dL Normal 0.0 - 1.2 [facility] Comment on above: Performed By: #### H EPFP ####[place] [address] Bilirubin.indirect [Mass/Vol] 0.1 mg/dL Normal 0.0 - 0.[address] [facility] Comment on above: Performed By: #### H EPFP ####[address] [address] Protein [Mass/Vol] 6.5 g/dL Normal 6.4 - 8.2 [facility] Comment on above: Performed By: #### H EPFP ####[address] [address] LACTATEon 01-19-2023 Lactate [Moles/Vol] 1.2 mmol/L Normal 0.4 - 2.0 [facility] Comment on above: Result Comment: Paris puncture immediately after or during the administration of Metamizole may lead to falsely low results. Testing should be performed immediately prior to Metamizole dosing. Performed By: #### L ACT ####[address] [address] LIPASEon 01-19-2023 Lipase [Catalytic activity/Vol] 21 U/L Normal 9 - [address] [facility] Comment on above: Result Comment: Paris puncture immediately after or during the administration of Metamizole may lead to falsely low results. Testing should be performed immediately prior to Metamizole dosing. P-cfrirn-z-benzoquinone imine (metabolite of Acetaminophen) will generate erroneously low results in samples for patients that have taken toxic doses of acetaminophen. Performed By: #### L IPAS ####[address] [address] PT/INRon 01-19-2023 PT Coag (PPP) [Time] 11.7 s Normal 9.8 - 13.4 [facility] Comment on above: Performed By: #### P TINR ####[address] [address] PT, INR 1.0 Normal 0.9 - 1.[address] [facility] Comment on above: Performed By: #### P TINR ####[address] [address] Provider Note - ED v3on 01-05 Provider Note - ED v3 Normal [facility] TROPONIN I, HIGH SENSITIVITY on 01-19-2023 TROPONIN I, HIGH SENSITIVITY 3 ng/L Normal 0 - [address] [facility] Comment on above: Result Comment: .Les s than 99th percentile of normal range cutoff-Female and children under 18 years old <14 ng/L; Male <21 ng/L: NegativeRepeat testing should be performed if clinically indicated..Female and children under 18 years old 14-50 ng/L; Male 21-50 ng/L:Consistent with possible cardiac damage and possible increased clinicalrisk. Serial measurements may help to assess extent of myocardial damage..>50 ng/L: Consistent with cardiac damage, increased clinical risk andmyocardial infarction. Serial measurements may help assess extent ofmyocardial damage..NOTE: Children less than 1 year old may have higher baseline troponinlevels and results should be interpreted in conjunction with the overallclinical context..NOTE: Troponin I testing is performed using a differenttesting methodology at [facility] than at [facility]. Direct result comparisons should onlybe made within the same method. Performed By: #### T [facility] ####[place] [address] Triage - EDon 01-19-2023 Triage - ED Normal [facility] UA MICROSCOPICon 01-19-2023 BACTERIA 3+ /HPF Abnormal [facility] Comment on above: Performed By: #### U AMIC ####[place] [address] BUDDING YEAST PRESENT Abnormal [facility] Comment on above: Performed By: #### U AMIC ####[place] [address] GRANULAR CAST 1+ /LPF Abnormal [facility] Comment on above: Performed By: #### U AMIC ####[place] [address] HYALINE CAST 3+ /LPF Abnormal [facility] Comment on above: Performed By: #### U AMIC ####[place] [address] Mucus Ql (Urine sed) 1+ /LPF Normal [facility] Comment on above: Performed By: #### U AMIC ####[place] [address] RBC 2 /HPF Normal 0-[address] [facility] Comment on above: Performed By: #### U AMIC ####[place] [address] SQUAMOUS EPITH. CELLS 14 /HPF Normal [facility] Comment on above: Performed By: #### U AMIC ####[place] [address] WBC 19 /HPF Abnormal 0-[address] [facility] Comment on above: Performed By: #### U AMIC ####[place] [address] URINALYSIS WITH CULTURE IF I NDICATEDon 01-19-2023 Appearance (U) HAZY Normal CLEAR [facility] Comment on above: Performed By: #### U ARFX ####[place] [address] Bilirubin Ql (U) Negative Normal NEGATIVE [facility] Comment on above: Performed By: #### U ARFX ####[place] [address] Color (U) Silke Normal STRAW,YELLO W [facility] Comment on above: Performed By: #### U ARFX ####[place] [address] Glucose Ql (U) >=500(3+) Abnormal NEGATIVE [facility] Comment on above: Performed By: #### U ARFX ####[place] [address] Hemoglobin Ql (U) Negative Normal NEGATIVE [facility] Comment on above: Performed By: #### U ARFX ####[place] [address] Ketones Ql (U) Negative Normal NEGATIVE [facility] Comment on above: Performed By: #### U ARFX ####[place] [address] Leukocyte esterase Test strip Ql (U) SMALL(1+) Abnormal NEGATIVE [facility] Comment on above: Performed By: #### U ARFX ####[place] [id number] Nitrite Ql (U) Negative Normal NEGATIVE [facility] Comment on above: Performed By: #### U ARFX ####[address] [address] pH (U) 5.0 [pH] Normal 5.0 - 8.[address] [facility] Comment on above: Performed By: #### U ARFX ####[address] [address] Protein Ql (U) Negative Normal NEGATIVE [facility] Comment on above: Performed By: #### U ARFX ####[address] [address] Specific gravity (U) [Rel density] 1.020 Normal 1.005 - 1.[address] [facility] Comment on above: Performed By: #### U ARFX ####[address] [address] Urobilinogen (U) [Mass/Vol] mg/dL Normal 0.0 - 1.[address] [facility] Comment on above: Performed By: #### U ARFX ####[address] [address] URINE CULTURE,BACTERIALon URINE CULTURE,BACTERIAL Normal 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 EXAM: XR Wrist 3+ Views Left HISTORY: Wrist pain for 2 weeks COMPARISON: None available TECHNIQUE: AP, lateral, oblique and scaphoid views of the wrist obtained. FINDINGS: No acute fracture or dislocation. Carpal and radiocarpal alignment is satisfactory. Soft tissues are within normal limits. Ordering Provider: BHANU MAR FINAL REPORT Dictated: 01/16/2023 1:13 pm Alejandro Reyez DO Signed (Electronic Signature): 01/16/2023 1:13 pm Signed by: Alejandro Reyez DO Transcribed by: LIANNA Technologist: ANTWON Technical Comments Radiation Dose: Ka,r in mGy = na DAP = na Normal [facility] Auto Diffon 01-13-2023 Basophils/100 WBC (Bld) 0.7 % Normal 0.0-2.0 [facility] Comment on above: Order Comment: Order Added by [employer] Expert. Performed By: #### 1 [id number], [id number], [id number], [id number], [id number] ####[address] [address] Basophils/Leukocytes Auto (Bld) [Pure # fraction] 0.0 E9/L Normal 0.0-0.2 [facility] Comment on above: Order Comment: Order Added by [employer] Expert. Performed By: #### 1 [id number], [id number], [id number], [id number], [id number] ####[address] [address] Eosinophils/100 WBC (Bld) 2.7 % Normal 0.0-8.0 [facility] Comment on above: Order Comment: Order Added by Discern Expert. Performed By: #### 1 [id number], [id number], [id number], [id number], [id number] ####[place] [address] [place] [address] Eosinophils/Leukocyt es Auto (Bld) [Pure # fraction] 0.2 E9/L Normal 0.0-0.5 [facility] Comment on above: Order Comment: Order Added by [employer] Expert. Performed By: #### 1 [id number], [id number], [id number], [id number], [id number] ####[place] [address] [place] [address] Lymphocytes/100 WBC (Bld) 43.1 % Normal 14.0-50.0 [facility] Comment on above: Order Comment: Order Added by Discern Expert. Performed By: #### 1 [id number], [id number], [id number], [id number], [id number] ####[place] [address] [place] [address] Lymphocytes/Leukocyt es Auto (Bld) [Pure # fraction] 3.0 E9/L Normal 1.0-4.0 [facility] Comment on above: Order Comment: Order Added by Discern Expert. Performed By: #### 1 [id number], [id number], [id number], [id number], [id number] ####[address] [address] Monocytes/100 WBC (Bld) 8.3 % Normal 4.0-14.0 [facility] Comment on above: Order Comment: Order Added by Discern Expert. Performed By: #### 1 [id number], [id number], [id number], [id number], [id number] ####[address] [address] Monocytes/Leukocytes Auto (Bld) [Pure # fraction] 0.6 E9/L Normal 0.2-1.0 [facility] Comment on above: Order Comment: Order Added by Discern Expert. Performed By: #### 1 0417111, 8772561, 2552606, 7827653, 5393359 ####[address] [address] Neutrophils/100 WBC (Bld) 45.2 % Normal 36.0-75.0 [facility] Comment on above: Order Comment: Order Added by Discern Expert. Performed By: #### 1 9770607, 0748279, 9208835, 0829542, 7089463 ####[address] [address] Neutrophils/Leukocyt es Auto (Bld) [Pure # fraction] 3.2 E9/L Normal 2.0-7.5 [facility] Comment on above: Order Comment: Order Added by Discern Expert. Performed By: #### 1 0717276, 6878618, 7431003, 0021128, 4649618 ####[address] [place] [address] CBC w/ Auto Diffon Erythrocyte distribution width (RBC) [Ratio] 15.4 % High 10.9-14.2 [facility] Comment on above: Performed By: #### 1 7269316, 8579505, 3240217, 6590767, 1506544 ####[address] [place] [address] Hematocrit (Bld) [Volume fraction] 38.4 % Normal 34.0-46.0 [facility] Comment on above: Performed By: #### 1 2787851, 1208402, 3279304, 3055321, 8469110 ####[address] Hemoglobin (Bld) [Mass/Vol] 12.3 g/dL Normal 12.0-16.0 [facility] Comment on above: Performed By: #### 1 8000886, 6531076, 0976324, 1004627, 7857637 ####[address] [address] MCH (RBC) [Entitic mass] 28.5 pg Normal 27.0-34.0 [facility] Comment on above: Performed By: #### 1 7944893, 1432726, 7776887, 5909500, 4425289 ####[facility] [address] [place] [address] MCHC (RBC) [Mass/Vol] 31.9 g/dL Normal 31.4-36.0 [facility] Comment on above: Performed By: #### 1 9408958, 2612545, 4426869, 1949167, 1736070 ####[address] [address] MCV (RBC) [Entitic vol] 89.3 fL Normal 80.0-100.0 [facility] Comment on above: Performed By: #### 1 0183520, 9724670, 4321027, 7946114, 6930705 ####[facility] [address] [place] [address] Platelet mean volume (Bld) [Entitic vol] 8.4 fL Normal 6.4-10.8 [facility] Comment on above: Performed By: #### 1 4773188, 4716640, 0799443, 9263826, 7199754 ####[facility] [address] [place] [address] Platelets (Bld) [#/Vol] 311.0 E9/L Normal 150.0-500.0 [facility] Comment on above: Performed By: #### 1 6110486, 7888672, 5789609, 7868063, 6787909 ####[address] [address] RBC (Bld) [#/Vol] 4.3 E12/L Normal 4.3-5.9 [facility] Comment on above: Performed By: #### 1 2666318, 3107777, 7157790, 1193368, 0520973 ####[facility] [address] [place] [address] WBC corrected for nucl RBC Auto (Bld) [#/Vol] 7.0 E9/L Normal 4.0-11.0 [facility] Comment on above: Performed By: #### 1 7593411, 3228838, 7348363, 3683635, 7129516 ####[facility] [address] [place] [address] CHEMISTRYOrdered By: SYSTEM SYSTEM on 01-13-2023 Albumin [Mass/Vol] 3.7 g/dL Normal 3.3 - 5.0 gm/dL [facility] Remisol Albumin/Globulin [Mass ratio] 1.1 {ratio} Normal 1.1 - 2.2 [facility] Remisol ALP [Catalytic activity/Vol] 60 [iU]/d Normal 21 - 98 Int._Unit/L [facility] Remisol ALT No additional P-5'-P [Catalytic activity/Vol] 22 [iU]/d Normal 6 - 46 Int._Unit/L [facility] Remisol Anion gap [Moles/Vol] 12 mmol/L Normal 6 - 16 mEq/L [facility] Remisol AST [Catalytic activity/Vol] 14 [iU]/d Normal 5 - 43 Int._Unit/L [facility] Remisol Bilirubin [Mass/Vol] 0.4 mg/dL Normal 0.0 - 1 .1 mg/dL [facility] Remisol Calcium [Mass/Vol] 9.2 mg/dL Normal 8.9 - 11. 1 mg/dL [facility] Remisol Chloride [Moles/Vol] 103 mmol/L Normal 101 - 1 11 mmol/L [facility]isol Cholesterol [Mass/Vol] 176 mg/dL Normal 120 - 200 mg/dL [facility]isol Cholesterol in HDL [Mass/Vol] 46 mg/dL Invalid Interpretation Code [facility] Cholesterol in LDL [Mass/Vol] 101 mg/dL Normal <=129mg/dL [facility] Remisol Cholesterol in VLDL [Mass/Vol] 46 mg/dL High 7 - 40 mg/dL [facility] Remisol CO2 [Moles/Vol] 24 mmol/L Normal 21 - 31 mmol/L [facility] Remisol Creatinine [Mass/Vol] 1.2 mg/dL Normal 0.5 - 1.3 mg/dL [facility] Remisol GFR/1.73 sq M.predicted among non-blacks MDRD (S/P/Bld) [Vol rate/Area] 57 mL/min/1.73 m2 Low >=59mL/min/ 1.73 m2 FT Chem S Globulin (S) [Mass/Vol] 3.5 g/dL Normal 1.4 - 4.0 gm/dL [facility] Remisol Glucose [Mass/Vol] 180 mg/dL Normal 55 - 199 mg/dL [facility] Remisol Potassium [Moles/Vol] 4.2 mmol/L Normal 3.5 - 5.3 mmol/L [facility] Remisol Protein [Mass/Vol] 7.2 g/dL Normal 6.0 - 7.8 gm/dL [facility] Remisol Sodium [Moles/Vol] 135 mmol/L Normal 135 - 145 mmol/L [facility] Remisol Triglyceride [Mass/Vol] 229 mg/dL High <=149mg/dL [facility] Remisol Urea nitrogen [Mass/Vol] 30 mg/dL High 5 - 21 mg/dL [facility] Remisol Urea nitrogen/Creatinine [Mass ratio] 25 mg/mg High 10 - 20 [facility] Remisol CHEMISTRYOrdered By: Odalys Galeano on 01-13-2023 Albumin DL <= 20 mg/L (U) [Mass/Vol] 9.5 microgram/mL Normal 0.0 - 19.0 mcg/mL [facility] Remisol Albumin Elph (U) [Mass fraction] mg/dL Invalid Interpretation Code [facility] Remisol Microalb/Cr Ratio 15.3 mg/gm Cr Normal 0.0 - 30. 0 mg/gm Cr [facility] Remisol U Prot/Creat Ratio ILC Invalid Interpretation Code 0.00 - 200.00 [facility] Remisol CHEMISTRYOrdered By: Ami Plata on 01-13-2023 U Osmolality 682 mOsm/kg Normal 50 - 1400 mOsm/kg [facility] Man UA SS CMPon 01-13-2023 Albumin [Mass/Vol] 3.7 g/dL Normal 3.3-5.0 [facility] Comment on above: Performed By: #### 1 5842013, 3931680, 3487582, 7182196, 8071839 ####[facility] [address] [place] [address] Albumin/Globulin (S) [Mass conc ratio] 1.1 Normal 1.1-2.2 [facility] Comment on above: Performed By: #### 1 0239801, 2562829, 6967612, 5948686, 6690814 ####[facility] [address] [place] [address] ALP [Catalytic activity/Vol] 60 Int._Unit/L Normal 21-98 [facility] Comment on above: Performed By: #### 1 9700827, 4960668, 7272829, 9319288, 7625531 ####[facility] [address] [place] [address] ALT No additional P-5'-P [Catalytic activity/Vol] 22 Int._Unit/L Normal 6-46 [facility] Comment on above: Performed By: #### 1 3902131, 2778435, 5272782, 9348383, 4000676 ####[facility] [address] [place] [address] Anion gap [Moles/Vol] 12 mmol/L Normal 6-16 [facility] Comment on above: Performed By: #### 1 4607029, 4954444, 6951814, 0529720, 9801267 ####[facility] [address] [place] [address] AST [Catalytic activity/Vol] 14 Int._Unit/L Normal 5-43 [facility] Comment on above: Performed By: #### 1 4679012, 5159138, 2193709, 1208515, 2291205 ####[address] [place] [address] Bilirubin [Mass/Vol] 0.4 mg/dL Normal 0.0-1.1 [facility] Comment on above: Performed By: #### 1 1599858, 7065253, 0956378, 7298337, 5571190 ####[address] [place] [address] Calcium [Mass/Vol] 9.2 mg/dL Normal 8.9-11.1 [facility] Comment on above: Performed By: #### 1 2775299, 8107358, 0124339, 2863980, 7077527 ####[address] [place] [address] Chloride [Moles/Vol] 103 mmol/L Normal 101-111 [facility] Comment on above: Performed By: #### 1 7180930, 0624652, 3862714, 7748308, 0338061 ####[facility] [address] [place] [address] CO2 [Moles/Vol] 24 mmol/L Normal 21-31 [facility] Comment on above: Performed By: #### 1 8247800, 0725032, 6922729, 4341592, 2978713 ####[facility] [address] [place] [address] Creatinine [Mass/Vol] 1.2 mg/dL Normal 0.5-1.3 [facility] Comment on above: Performed By: #### 1 1318989, 3280854, 6940824, 2843799, 8270674 ####[facility] [address] [place] [address] Globulin (S) [Mass/Vol] 3.5 g/dL Normal 1.4-4.0 [facility] Comment on above: Performed By: #### 1 3799780, 4600510, 9154799, 4012819, 3267763 ####[facility] [address] [place] [address] Glucose [Mass/Vol] 180 mg/dL Normal 55-199 [facility] Comment on above: Result Comment: If t his glucose result represents a fasting glucose, interpretation should refer to the following reference range: 55-99 mg/dL Performed By: #### 1 9114827, 2856008, 7843184, 6795790, 7523195 ####[facility] [address] [place] [address] Potassium [Moles/Vol] 4.2 mmol/L Normal 3.5-5.3 [facility] Comment on above: Performed By: #### 1 2273983, 8190995, 6121680, 6829953, 5783406 ####[facility] [address] [place] [address] Protein [Mass/Vol] 7.2 g/dL Normal 6.0-7.8 [facility] Comment on above: Performed By: #### 1 8735796, 3403400, 0708120, 7824333, 4425657 ####[facility] [address] [place] [address] Sodium [Moles/Vol] 135 mmol/L Normal 135-145 [facility] Comment on above: Performed By: #### 1 1121729, 9572173, 9680110, 6508811, 0480639 ####[facility] [address] [place] [address] Urea nitrogen [Mass/Vol] 30 mg/dL High 5-21 [facility] Comment on above: Performed By: #### 1 1641381, 9406534, 6663268, 7025185, 6873583 ####[facility] [address] [place] [address] Urea nitrogen/Creatinine [Mass ratio] 25 No Units High 10-20 [facility] Comment on above: Performed By: #### 1 9814887, 1086065, 3425141, 4552860, 8304277 ####[facility] [address] [place] [address] Consent for Treatmenton Consent for Treatment [id number]#[id number]:12 7 Normal [facility] HEMATOLOGYOrdered By: SYSTEM SYSTEM on 01-13-2023 Basophils/100 WBC (Bld) 0.7 % Normal 0.0 - 2.0 % [facility] HemeAutoSS Basophils/Leukocytes Auto (Bld) [Pure # fraction] 0.0 E9/L Normal 0.0 - 0.2 E9/L [facility] HemeAutoSS Eosinophils/100 WBC (Bld) 2.7 % Normal 0.0 - 8.0 % [facility] HemeAutoSS Eosinophils/Leukocyt es Auto (Bld) [Pure # fraction] 0.2 E9/L Normal 0.0 - 0.5 E9/L [facility] HemeAutoSS Lymphocytes/100 WBC (Bld) 43.1 % Normal 14.0 - 50.0 % [facility] HemeAutoSS Lymphocytes/Leukocyt es Auto (Bld) [Pure # fraction] 3.0 E9/L Normal 1.0 - 4.0 E9/L [facility] HemeAutoSS Monocytes/100 WBC (Bld) 8.3 % Normal 4.0 - 14.0 % [facility] HemeAutoSS Monocytes/Leukocytes Auto (Bld) [Pure # fraction] 0.6 E9/L Normal 0.2 - 1.0 E9/L [facility] HemeAutoSS Neutrophils/100 WBC (Bld) 45.2 % Normal 36.0 - 75.0 % [facility] HemeAutoSS Neutrophils/Leukocyt es Auto (Bld) [Pure # fraction] 3.2 E9/L Normal 2.0 - 7.5 E9/L [facility] HemeAutoSS HEMATOLOGYOrdered By: Debbie Dominguez on 01-13-2023 Erythrocyte distribution width (RBC) [Ratio] 15.4 % High 10.9 - 14.2 % [facility] HemeAutoSS Hematocrit (Bld) [Volume fraction] 38.4 % Normal 34.0 - 46.0 % [facility] HemeAutoSS Hemoglobin (Bld) [Mass/Vol] 12.3 g/dL Normal 12.0 - 16.0 gm/dL [facility] HemeAutoSS MCH (RBC) [Entitic mass] 28.5 pg Normal 27.0 - 34.0 pg [facility] HemeAutoSS MCHC (RBC) [Mass/Vol] 31.9 g/dL Normal 31.4 - 36.0 gm/dL [facility] HemeAutoSS MCV (RBC) [Entitic vol] 89.3 fL Normal 80.0 - 100.0 fL [facility] HemeAutoSS Platelet mean volume (Bld) [Entitic vol] 8.4 fL Normal 6.4 - 10.8 fL [facility] HemeAutoSS Platelets (Bld) [#/Vol] 311.0 E9/L Normal 150.0 - 500.0 E9/L [facility] HemeAutoSS RBC (Bld) [#/Vol] 4.3 E12/L Normal 4.3 - 5.9 E12/L [facility] HemeAutoSS WBC corrected for nucl RBC Auto (Bld) [#/Vol] 7.0 E9/L Normal 4.0 - 11.0 E9/L [facility] and C hemistry - challengeOrdered By: Zena Galeano on 01-13-2023 Creatinine (U) [Mass/Vol] 62.0 mg/dL Invalid Interpretation Code [facility] Remisol Lipid Panelon 01-13-2023 Cholesterol [Mass/Vol] 176 mg/dL Normal 120-200 [facility] Comment on above: Performed By: #### 1 9083876, 3883255, 2258186, 1228468, 6779289 ####[facility] [place] [address] Cholesterol in HDL [Mass/Vol] 46 mg/dL Invalid Interpretation Code [facility] Comment on above: Result Comment: HDL > or equal to 60 mg/dL: Low cardiovascular risk HDL < 40 mg/dL : High cardiovascular risk Performed By: #### 1 7365104, 2125247, 8913113, 9310494, 3960304 ####[facility] [address] [place] [address] Cholesterol in LDL [Mass/Vol] 101 mg/dL Normal <=129 [facility] Comment on above: Performed By: #### 1 2321350, 4323056, 5649994, 7216376, 9888751 ####[facility] [address] [place] [address] Cholesterol in VLDL [Mass/Vol] 46 mg/dL High 7-40 [facility] Comment on above: Performed By: #### 1 7662334, 9220417, 3199503, 0104193, 4513516 ####[facility] [address] [place] [address] Triglyceride [Mass/Vol] 229 mg/dL High <=149 [facility] Comment on above: Performed By: #### 1 5254322, 2884729, 1940851, 9854947, 6731293 ####[facility] [address] [place] [address] MA/Cr Ratioon 01-13-2023 Albumin DL <= 20 mg/L (U) [Mass/Vol] 9.5 microgram/mL Normal 0.0-19.0 [facility] Comment on above: Performed By: #### 1 7106968, 9997955695, 7725734665, 5885264 ####[facility] [address] [place] [address] Creatinine (U) [Mass/Vol] 62.0 mg/dL Invalid Interpretation Code [facility] Comment on above: Result Comment: The reference range and other method performance specifications have not been established for this test; results should be integrated into the clinical context for interpretation. Performed By: #### 1 3235566, 5098171008, 0632176787, 6862249 ####[facility] [address] [place] [address] Microalb/Cr Ratio 15.3 mg/gm Cr Normal .0-30.0 [facility] Comment on above: Result Comment: 30-3 00 mg/g Cr indicates an increased risk for diabetic nephropathy. >300 mg/g Cr is consistent with clinical nephropathy. Performed By: #### 1 4903249, 4227527733, 4640600070, 6085634 ####[facility] [address] [place] [address] Physician Orderon 01-13-2023 Physician Order [id number]#[id number]:1 27 Normal [facility] Physician Order [id number]#1.00CD: 127 Normal [facility] U Osmolalityon 01-13-2023 U Osmolality 682 mOsm/kg Normal 50-1400 [facility] Comment on above: Performed By: #### 1 8588598, 4141962484, 6007087796, 0089294 ####[facility] [address] [place] [address] U Protein/Creat Ratioon Albumin Elph (U) [Mass fraction] <6.0 Invalid Interpretation Code [facility] Comment on above: Result Comment: The reference range and other method performance specifications have not been established for this test; results should be integrated into the clinical context for interpretation. Performed By: #### 1 5956739, 0342904817, 8550946030, 4989213 ####[facility] [address] [place] [address] U Prot/Creat Ratio [facility] Invalid Interpretation Code .00-200.00 [facility] Comment on above: Performed By: #### 1 9519612, 6785327817, 3096768563, 8523329 ####[facility] [address] [place] [address] URINALYSISOrdered By: Ami Plata on 01-13-2023 Bilirubin Ql (U) Negative (01/13/23 10:06 AM) Normal Negative [facility] UA Auto SS Clarity (U) Clear (01/13/23 10:06 AM) Normal Clear [facility] UA Auto SS Color (U) Yellow (01/13/23 10:06 AM) Normal Yellow [facility] UA Auto SS Epithelial cells.squamous LM.HPF (Urine sed) [#/Area] 0-2 /HPF Normal 0-2/HPF [facility] UA Auto SS Glucose Test strip (U) [Mass/Vol] 3+ *ABN* (01/13/23 10:06 AM) Invalid Interpretation Code Negative [facility] UA Auto SS Hemoglobin Ql (U) Negative (01/13/23 10:06 AM) Normal Negative [facility] UA Auto SS Ketones (U) [Mass/Vol] Negative (01/13/23 10:06 AM) Normal Negative [facility] UA Auto SS [place].plasma/Lithi um.RBC (Bld) [Mass ratio] 0-3 /HPF Normal 0-3/HPF [facility] UA Auto SS Nitrite Ql (U) Negative (01/13/23 10:06 AM) Normal Negative [facility] UA Auto SS pH (U) 5.5 *NA* (01/13/23 10:06 AM) Invalid Interpretation Code 5.0 - 9.0 [facility] UA Auto SS Protein (U) [Mass/Vol] Negative (01/13/23 10:06 AM) Normal Negative [facility] UA Auto SS Specific gravity (U) [Rel density] 1.020 *NA* (01/13/23 10:06 AM) Invalid Interpretation Code 1.005 - 1.030 [facility] UA Auto SS UA Spec Desc Clean Catch (01/13/23 10:06 AM) Normal [facility] UA Auto SS Urobilinogen Qn (U) 0.5878197 {Jesus'U}/dL Normal 0.0 - 1.0 EU/dL [facility] UA Auto SS WBC Auto Ql (U) Negative (01/13/23 10:06 AM) Normal Negative [facility] UA Auto SS WBC LM.HPF (Urine sed) [#/Area] 0-5 /HPF Normal 0-5/HPF [facility] UA Auto SS Urinalysison 01-13-2023 Bilirubin Ql (U) Negative Normal Negative [facility] Comment on above: Performed By: #### 1 0642029, 1621322614, 0569336785, 5407150 ####[facility] [address] [place] [address] Clarity (U) CLEAR Normal Clear [facility] Comment on above: Performed By: #### 1 6703703, 0206145879, 4190278061, 1043989 ####[facility] [address] [place] [address] Color (U) YELLOW Normal Yellow [facility] Comment on above: Performed By: #### 1 6318734, 1233042103, 9243908699, 0198979 ####[address] [place] [address] Epithelial cells.squamous LM.HPF (Urine sed) [#/Area] 0-2 Normal 0-2 [facility] Comment on above: Performed By: #### 1 2632800, 1326041948, 2069802833, 9093429 ####[address] Glucose Test strip (U) [Mass/Vol] 3+ Abnormal Negative [facility] Comment on above: Performed By: #### 1 0113416, 5507664700, 4353778348, 9584404 ####[address] [address] Hemoglobin Ql (U) Negative Normal Negative [facility] Comment on above: Performed By: #### 1 3707693, 3177234733, 5983358249, 2042671 ####[facility] [address] [place] [address] Ketones (U) [Mass/Vol] Negative Normal Negative [facility] Comment on above: Performed By: #### 1 3188446, 3633613580, 3354963439, 4139456 ####[address] [place] [address] [place].plasma/Lithi um.RBC (Bld) [Mass ratio] 0-3 Normal 0-3 [facility] Comment on above: Performed By: #### 1 7740330, 7584043462, 8479223183, 4954947 ####[facility] [address] [place] [address] Nitrite Ql (U) Negative Normal Negative [facility] Comment on above: Performed By: #### 1 3598978, 1062620058, 0700420033, 5710415 ####[address] [address] pH (U) 5.5 [pH] Invalid Interpretation Code 5.0-9.0 [facility] Comment on above: Performed By: #### 1 3319802, 1014975896, 9388044088, 5493209 ####[address] Protein (U) [Mass/Vol] Negative Normal Negative [facility] Comment on above: Performed By: #### 1 8228651, 2925110754, 2797178377, 2580102 ####[address] Specific gravity (U) [Rel density] 1.020 Invalid Interpretation Code 1.005-1.030 [facility] Comment on above: Performed By: #### 1 1841792, 0527729159, 3164377048, 1310158 ####[address] [address] Type of Urine collection method Clean Catch Normal [facility] Comment on above: Performed By: #### 1 4074696, 2876780179, 2475814474, 8878104 ####[facility] [address] [place] [address] Urobilinogen Qn (U) 0.2 {Jesus'U}/dL Normal 0.0-1.0 [facility] Comment on above: Performed By: #### 1 4346661, 7313225728, 1420512055, 3895536 ####[address] [address] WBC Auto Ql (U) Negative Normal Negative [facility] Comment on above: Performed By: #### 1 3674945, 1497848022, 7311901472, 0960051 ####[facility] [address] [place] [address] WBC LM.HPF (Urine sed) [#/Area] 0-5 Normal 0-5 [facility] Comment on above: Performed By: #### 1 2616208, 3805827002, 6390976310, 0268641 ####[facility] [address] [place] [address] eGFRon 01-13-2023 GFR/1.73 sq M.predicted among non-blacks MDRD (S/P/Bld) [Vol rate/Area] 57 mL/min/1.73 m2 Low >=59 [facility] Comment on above: Order Comment: Order added by Discern Expert. Result Comment: Math Teacher enid kidney disease could be indicated at eGFR's of less than 60 mL/min/1.73m2. Kidney failure is indicated at less than 15 mL/min/1.73m2. Performed By: #### 1 5904331, 6621640, 7658502, 7721373, 5123141 ####[facility] [address] [place] [address] Physician Orderon 12-09-2022 Physician Order [id number]#1.00CD:1 27 Normal [facility] Cult, Urineon 12-08-2022 Bacteria identified Cx Nom (U) QL-Aumfftx-Gj sohan Work Phone: Office Visit (Urology)on Follow-up visit Diagnoses/Problems Assessed Diabetes (250.00) (E11.9) History of Adenoidectomy History of Carpal tunnel surgery History of Hysterectomy Family history of hypertension (V17.49) (Z82.49) : Mother Former tobacco use (V15.82) (Z87.891) Dysuria (788.1) (R30.0) Right flank pain (789.09) (R10.9) Orders Dysuria Cult, Urine; Status:Active - Retrospective Authorization; Requested for:08Dec2022; Perform:Lab Services - Lab To Draw (Non-Blood Test); Due:08Mar2023; Last Updated By:Jacqueline Mena; 12/08/2022 2:09:24 PM;Ordered; For:Dysuria; Ordered By:Christina Ramos; Right flank pain CT Abdomen and Pelvis without Contrast; Status:Hold For - Scheduling,Retrospective Authorization; Requested for:08Dec2022; Perform: Radiology Services Imaging; Due:08Mar2023; Last Updated By:Jacqueline Mena; 12/08/2022 2:16:26 PM;Ordered; For:Right flank pain; Ordered By:Christina Ramos; Patient taking Metformin or Derivatives? : Yes Radiologist to Determine Optimal Study : Y What are the patient's signs and symptoms? : right flank pain Follow-up visit in 2 weeks Outpatient Follow-up after ct stone study Status: Hold For - Scheduling,Retrospective Authorization Requested for: 08Dec2022 Ordered Stat;For: Right flank pain; Ordered By: Christina Ramos Performed: Due: 08Mar2023; Last Updated By: Jacqueline Mena; 12/08/2022 2:16:56 PM SocHx: Former tobacco use Tobacco Use Screening; Status:Complete; Done: 08Dec2022 Perform:Not Applicable;Ordered; For:SocHx: Former tobacco use; Ordered By:Jacqueline Mena; Patient Discussion/Summary s/p cysto with right RPG, right URS with holmium and stent placement complicated with ?early sepsis, right flank pain 42 year old very pleasant female presents s/p cysto with right RPG, right URS with holmium and stent placement on 11/14/2022. Patient then presented to the ER 2 weeks post surgery (November 30, 2022) with right flank pain with N/V. She was hospitalized with sepsis and her stent was removed by Dr. Daniel on December 03, 2022. She now presents today with continued right flank pain. We discussed the need for a CT abdomen/pelvis. Patient verbalized understanding and wishes to proceed. Plan If development of fever or chills proceed to the ER CT abdomen/pelvis Urine culture Follow up in 1 week By signing my name below, I, Temitope Ira ,Scribe, attest that this documentation has been prepared under the direction and in the presence of Dr. Christina Mcnally. All medical record entries made by the Baylee were at my direction and personally dictated by me. I have reviewed the chart and agree that the record accurately reflects my personal performance of the history, physical exam, discussion and plan. Chief Complaint Follow up for Right Urteral stone History of Present IllnessPatient is follow up today for Right Ureteral Stone. Patient had Cysto Right RPG Right Ureteroscopy with Stent Removal 12/03/2022. Previous to that Cysto Right RPG, Right UReteroscopy with Holmium laser and Right Stent placement. 11/14/2022. Patient is having Right flank pain and vomiting. Prior to surgeries no Dysuria or Hematuria. Some frequency and Urgency. Nocturia x6. No caffeine use. Patient had ESWL in the past. Right flank pain 5/10, non radiating, denies any fever or chills but with vomiting Review of Systems All systems were reviewed. Anything negative was noted in the HPI. Active Problems Problems Calcium kidney stone (592.0) (N20.0) Surgical History Problems History of Adenoidectomy History of Carpal tunnel surgery History of Hysterectomy Family History Mother Family history of diabetes mellitus (V18.0) (Z83.3) Family history of hypertension (V17.49) (Z82.49) Father Family history of diabetes mellitus (V18.0) (Z83.3) Sister Family history of diabetes mellitus (V18.0) (Z83.3) Brother Family history of diabetes mellitus (V18.0) (Z83.3) Social History Problems Denies alcohol consumption (V49.89) (Z78.9) Former tobacco use (V15.82) (Z87.891) Allergies Medication Codeine Derivatives Recorded By: Jacqueline Mena; 12/08/2022 1:52:57 PM Current Meds Medication NameInstruction metFORMIN HCl - 500 MG Oral Tablet Physical Exam General: Well developed, well nourished, alert and cooperative, appears in no acute distress Eyes: Non-injected conjunctiva, sclera clear, no proptosis Cardiac: Extremities are warm and well perfused. No edema, cyanosis or pallor Lungs: Breathing is easy, non-labored. Speaking in clear and complete sentences. Normal diaphragmatic movement MSK: Ambulatory with steady gait, unassisted Neuro: Alert and oriented to person, place, and time Psych: Demonstrates good judgment and reason, without hallucinations, abnormal affect or abnormal behaviors Skin: No obvious lesions, no rashes No CVA tenderness bilaterally No suprapubic pain or discomfort Signatures Electronically signed by : Christina Mcnally MD MPH; Dec 08 2022 2:22PM EST (Author) Normal Touchworks URINE CULTURE,BACTERIALon URINE CULTURE,BACTERIAL PATIENT: JADA GRANADOS LOCATION: [facility] BILL#: [id number] : 76 AGE: SEX: F ORDERED BY: CHRISTINA RAMOS SOURCE: URINE COLLECTED: 12/08/22 14:09 ANTIBIOTICS AT ABDON.: RECEIVED : 12/09/22 00:43 SITE: Clean Catch/Voided R E S U L T S URINE CULTURE,BACTERIAL FINAL 12/10/22 09:14 NO GROWTH Normal [facility] Comment on above: Performed By: #### U RINC #### [facility] [address] [place] [address] CBCon 12-06-2022 Erythrocyte distribution width (RBC) [Ratio] 13.5 % Normal 11.5 - 14.[address] [facility] Comment on above: Performed By: #### C BC ####[address] [address] Hematocrit (Bld) [Volume fraction] 31.2 % Low 36.0 - 46.[address] [facility] Comment on above: Performed By: #### C BC ####[address] [address] Hemoglobin (Bld) [Mass/Vol] 10.2 g/dL Low 12.0 - 16.[address] [facility] Comment on above: Performed By: #### C BC ####[address] [address] MCHC (RBC) [Mass/Vol] 32.7 g/dL Normal 32.0 - 36.[address] [facility] Comment on above: Performed By: #### C BC ####[place] [id number] MCV (RBC) [Entitic vol] 89 fL Normal 80 - [address] [facility] Comment on above: Performed By: #### C BC ####[place] [address] Platelets (Bld) [#/Vol] 294 10*3/uL Normal 150 - [address] [facility] Comment on above: Performed By: #### C BC ####[place] [address] RBC 3.49 x10E12/L Low 4.00 - 5.[address] [facility] Comment on above: Performed By: #### C BC ####[place] [address] WBC (Bld) [#/Vol] 4.0 10*3/uL Low 4.4 - 11.3 [facility] Comment on above: Performed By: #### C BC ####[place] [address] COMPREHENSIVE PANELon 2022 Albumin [Mass/Vol] 2.8 g/dL Low 3.4 - 5.0 [facility] Comment on above: Performed By: #### C MP ####[place] [address] ALP [Catalytic activity/Vol] 62 U/L Normal 33 - [address] [facility] Comment on above: Performed By: #### C MP ####[place] [address] ALT [Catalytic activity/Vol] 13 U/L Normal 7 - [address] [facility] Comment on above: Result Comment: Bridget ents treated with Sulfasalazine may generate falsely decreased results for ALT. Performed By: #### C MP ####[place] [address] Anion gap [Moles/Vol] 8 mmol/L Low 10 - [address] [facility] Comment on above: Performed By: #### C MP ####[address] [address] AST [Catalytic activity/Vol] 12 U/L Normal 9 - [address] [facility] Comment on above: Performed By: #### C MP ####[address] [address] Bilirubin [Mass/Vol] 0.3 mg/dL Normal 0.0 - 1.2 [facility] Comment on above: Performed By: #### C MP ####[address] [address] Calcium [Mass/Vol] 8.2 mg/dL Low 8.6 - 10.3 [facility] Comment on above: Performed By: #### C MP ####[address] [address] Chloride [Moles/Vol] 100 mmol/L Normal 98 - 107 [facility] Comment on above: Performed By: #### C MP ####[address] [address] Creatinine [Mass/Vol] 0.92 mg/dL Normal 0.50 - 1.[address] [facility] Comment on above: Performed By: #### C MP ####[address] [address] GFR/1.73 sq M.predicted among non-blacks MDRD (S/P/Bld) [Vol rate/Area] 78 mL/min/{1.73_m2} Normal >[address] [facility] Comment on above: Result Comment: CALC ULATIONS OF ESTIMATED GFR ARE PERFORMED USING THE 2020 CKD-EPI STUDY REFIT EQUATION WITHOUT THE RACE VARIABLE FOR THE IDMS-TRACEABLE CREATININE METHODS.https://jasn.asnjournals.org/content//ASN .9265215430 Performed By: #### C MP ####[address] [address] Glucose [Mass/Vol] 201 mg/dL High 74 - 99 [facility] Comment on above: Performed By: #### C MP ####[address] [address] HCO3 (Bld) [Moles/Vol] 33 mmol/L High 21 - [address] [facility] Comment on above: Performed By: #### C MP ####[address] [address] Potassium [Moles/Vol] 4.1 mmol/L Normal 3.5 - 5.[address] [facility] Comment on above: Performed By: #### C MP ####[address] [address] Protein [Mass/Vol] 5.7 g/dL Low 6.4 - 8.2 [facility] Comment on above: Performed By: #### C MP ####[address] [address] Sodium [Moles/Vol] 137 mmol/L Normal 136 - 145 [facility] Comment on above: Performed By: #### C MP ####[address] [address] Urea nitrogen [Mass/Vol] 11 mg/dL Normal 6 - [address] [facility] Comment on above: Performed By: #### C MP ####[address] [address] Discharge [id number] Discharge Profile2 Normal [facility] GLUCOSE-[facility] 12-06-2022 Glucose [Mass/Vol] 54 mg/dL Low 74 - 99 [facility] Comment on above: Result Comment: RN/M D NOTIFIED Performed By: #### G MAURA ####[address] [address] Glucose [Mass/Vol] 83 mg/dL Normal 74 - 99 [facility] Comment on above: Performed By: #### G MAURA ####[address] [address] Glucose [Mass/Vol] 187 mg/dL High 74 - 99 [facility] Comment on above: Performed By: #### G MAURA ####[address] [address] Glucose [Mass/Vol] 182 mg/dL High 74 - 99 [facility] Comment on above: Performed By: #### G MAURA ####[place] [address] [place] [address] Glucose [Mass/Vol] 83 mg/dL Normal 74 - 99 [facility] Comment on above: Performed By: #### G MAURA ####[place] [address] [place] [address] Laboratory - Chemistry and C hemistry - challengeon 12-06-2022 Albumin BCP dye [Mass/Vol] 2.8 g/dL below low threshold 3.4 - 5.0 FK-Swjmxta-Oa [place] Work Phone: ALP [Catalytic activity/Vol] 62 U/L 33 - 110 OE-Wcduzwu-Ob [place] Work Phone: ALT With P-5'-P [Catalytic activity/Vol] 13 U/L 7 - 45 GG-Mxdblri-Xo [place] Work Phone: Comment on above: Patients treated wit h Sulfasalazine may generate falsely decreased results for ALT. Anion gap [Moles/Vol] 8 mmol/L below low threshold 10 - 20 DB-Ybkyjso-Ax [place] Work Phone: AST With P-5'-P [Catalytic activity/Vol] 12 U/L 9 - 39 QV-Vixsyvg-Zt [place] Work Phone: Bilirubin [Mass/Vol] 0.3 mg/dL 0.0 - 1.2 MP-U rology-Ra [place] Work Phone: Calcium [Mass/Vol] 8.2 mg/dL below low threshold 8.6 - 10.3 CS-Hmurhym-On [place] Work Phone: Chloride [Moles/Vol] 100 mmol/L 98 - 107 MP-U rology-Ra [place] Work Phone: CO2 [Moles/Vol] 33 mmol/L above high threshold 21 - 32 QS-Dcpilha-Hb [place] Work Phone: Creatinine [Mass/Vol] 0.92 mg/dL See Below GF-Frihyjn-Rt [place] Work Phone: Comment on above: Reference Range: 0.5 0 - 1.05 Glucose [Mass/Vol] 54 mg/dL below low threshold 74 - 99 BS-Cvavmvg-Sd [place] Work Phone: Comment on above: RN/MD NOTIFIED Glucose [Mass/Vol] 83 mg/dL 74 - 99 MP-Uro logy-Ra [place] Work Phone: Glucose [Mass/Vol] 201 mg/dL above high threshold 74 - 99 OR-Ixwvvwv-Nn [place] Work Phone: Glucose [Mass/Vol] 187 mg/dL above high threshold 74 - 99 WS-Ivvdbux-By [place] Work Phone: Glucose [Mass/Vol] 182 mg/dL above high threshold 74 - 99 YF-Asmwmpn-Ar [place] Work Phone: [phone] Glucose [Mass/Vol] 83 mg/dL 74 - 99 MP-Uro logy-Ra [place]isa Work Phone: Potassium [Moles/Vol] 4.1 mmol/L 3.5 - 5.3 TY-Lszbxlc-Ys [place] Work Phone: Protein [Mass/Vol] 5.7 g/dL below low threshold 6.4 - 8.2 WL-Blsdcvo-Nx [place] Work Phone: Sodium [Moles/Vol] 137 mmol/L 136 - 145 MP-Uro logy-Ra [place] Work Phone: Urea nitrogen [Mass/Vol] 11 mg/dL 6 - 23 RD-Csosznx-Cp [place] Work Phone: Laboratory - Hematology and Cell countson 12-06-2022 Erythrocyte distribution width (RBC) [Ratio] 13.5 % See Below KF-Zdlygut-Ht [place] Work Phone: Comment on above: Reference Range: 11. 5 - 14.5 Hematocrit (Bld) [Volume fraction] 31.2 % below low threshold See Below VU-Hfgdndv-Vb [place] Work Phone: Comment on above: Reference Range: 36. 0 - 46.0 Hemoglobin (Bld) [Mass/Vol] 10.2 g/dL below low threshold See Below MV-Wurtful-Df [place] Work Phone: Comment on above: Reference Range: 12. 0 - 16.0 MCHC (RBC) [Mass/Vol] 32.7 g/dL See Below LP-Rzxxqcq-Hg [place] Work Phone: Comment on above: Reference Range: 32. 0 - 36.0 MCV (RBC) [Entitic vol] 89 fL 80 - 100 TQ-Pmdkhut-Wl [place] Work Phone: Platelets (Bld) [#/Vol] 294 10*3/uL 150 - 450 TW-Whxyihp-Gc [place] Work Phone: RBC (Bld) [#/Vol] 3.49 {x10E12/L} below low threshold See Below ZY-Ulfpagc-Po [place] Work Phone: Comment on above: Reference Range: 4.0 0 - 5.20 WBC (Bld) [#/Vol] 4.0 10*3/uL below low threshold 4.4 - 11.3 GI-Gsdnlyn-Eo [place] Work Phone: No Panel Informationon 12-06 78 {mL/min/1.73m2} >90 MP-Uro logy-Ra [place] Work Phone: Comment on above: CALCULATIONS OF SACHIN MATED GFR ARE PERFORMED USING THE 2020 CKD-EPI STUDY REFIT EQUATION WITHOUT THE RACE VARIABLE FOR THE IDMS-TRACEABLE CREATININE METHODS.https://jasn.asnjournals.org/content//ASN .1942837124 Order Reconciliationon 12-06 Order Reconciliation Normal [facility] Rehab Note-individual therap yon 12-06-2022 Rehab Note-individual therapy Normal [facility] CBC AND DIFFERENTIALon 12-05 % AUTOMATED IMMATURE GRAN 0.2 % Normal 0.0 - 0.[address] [facility] Comment on above: Result Comment: Alla ture Granulocyte Count (IG) includes promyelocytes, myelocytes and metamyelocytes but does not include bands. Percent differential counts (%) should be interpreted in the context of the absolute cell counts (cells/L). Performed By: #### C BCDF ####[address] [address] Basophils (Bld) [#/Vol] 0.02 10*3/uL Normal 0.00 - 0.[address] [facility] Comment on above: Performed By: #### C BCDF ####[address] [address] Basophils/100 WBC (Bld) 0.5 % Normal 0.0 - 2.[address] [facility] Comment on above: Performed By: #### C BCDF ####[address] [address] Eosinophils (Bld) [#/Vol] 0.08 10*3/uL Normal 0.00 - 0.[address] [facility] Comment on above: Performed By: #### C BCDF ####[address] [address] Eosinophils/100 WBC (Bld) 1.9 % Normal 0.0 - 6.[address] [facility] Comment on above: Performed By: #### C BCDF ####[address] [address] Erythrocyte distribution width (RBC) [Ratio] 13.6 % Normal 11.5 - 14.[address] [facility] Comment on above: Performed By: #### C BCDF ####[address] [address] Hematocrit (Bld) [Volume fraction] 28.3 % Low 36.0 - 46.[address] [facility] Comment on above: Performed By: #### C BCDF ####[address] [address] Hemoglobin (Bld) [Mass/Vol] 8.9 g/dL Low 12.0 - 16.[address] [facility] Comment on above: Performed By: #### C BCDF ####[address] [address] Lymphocytes (Bld) [#/Vol] 2.14 10*3/uL Normal 1.20 - 4.[address] [facility] Comment on above: Performed By: #### C BCDF ####[address] [address] Lymphocytes/100 WBC (Bld) 49.5 % Normal 13.0 - 44.[address] [facility] Comment on above: Performed By: #### C BCDF ####[address] [address] MCHC (RBC) [Mass/Vol] 31.4 g/dL Low 32.0 - 36.[address] [facility] Comment on above: Performed By: #### C BCDF ####[address] [address] MCV (RBC) [Entitic vol] 90 fL Normal 80 - [address] [facility] Comment on above: Performed By: #### C BCDF ####[address] [address] Monocytes (Bld) [#/Vol] 0.38 10*3/uL Normal 0.10 - 1.[address] [facility] Comment on above: Performed By: #### C BCDF ####[address] [address] Monocytes/100 WBC (Bld) 8.8 % Normal 2.0 - 10.[address] [facility] Comment on above: Performed By: #### C BCDF ####[address] [address] Neutrophils (Bld) [#/Vol] 1.69 10*3/uL Normal 1.20 - 7.[address] [facility] Comment on above: Result Comment: Perc ent differential counts (%) should be interpreted in the context of the absolute cell counts (cells/L). Performed By: #### C BCDF ####[address] [address] Neutrophils/100 WBC (Bld) 39.1 % Normal 40.0 - 80.[address] [facility] Comment on above: Performed By: #### C BCDF ####[facility] [id number] [place] [address] Platelets (Bld) [#/Vol] 253 10*3/uL Normal 150 - [address] [facility] Comment on above: Performed By: #### C BCDF ####[address] [address] RBC 3.13 x10E12/L Low 4.00 - 5.[address] [facility] Comment on above: Performed By: #### C BCDF ####[address] [address] WBC (Bld) [#/Vol] 4.3 10*3/uL Low 4.4 - 11.3 [facility] Comment on above: Performed By: #### C BCDF ####[address] [address] COMPREHENSIVE PANELon 2022 Albumin [Mass/Vol] 2.8 g/dL Low 3.4 - 5.0 [facility] Comment on above: Performed By: #### C MP ####[address] [address] ALP [Catalytic activity/Vol] 63 U/L Normal 33 - [address] [facility] Comment on above: Performed By: #### C MP ####[address] [address] ALT [Catalytic activity/Vol] 12 U/L Normal 7 - [address] [facility] Comment on above: Result Comment: Bridget ents treated with Sulfasalazine may generate falsely decreased results for ALT. Performed By: #### C MP ####[address] [address] Anion gap [Moles/Vol] 8 mmol/L Low 10 - [address] [facility] Comment on above: Performed By: #### C MP ####[address] [address] AST [Catalytic activity/Vol] 9 U/L Normal 9 - [address] [facility] Comment on above: Performed By: #### C MP ####[address] [address] Bilirubin [Mass/Vol] 0.3 mg/dL Normal 0.0 - 1.2 [facility] Comment on above: Performed By: #### C MP ####[address] [address] Calcium [Mass/Vol] 8.1 mg/dL Low 8.6 - 10.3 [facility] Comment on above: Performed By: #### C MP ####[address] [address] Chloride [Moles/Vol] 104 mmol/L Normal 98 - 107 [facility] Comment on above: Performed By: #### C MP ####[address] [address] Creatinine [Mass/Vol] 1.05 mg/dL Normal 0.50 - 1.[address] [facility] Comment on above: Performed By: #### C MP ####[address] [address] GFR/1.73 sq M.predicted among non-blacks MDRD (S/P/Bld) [Vol rate/Area] 67 mL/min/{1.73_m2} Normal >[address] [facility] Comment on above: Result Comment: CALC ULATIONS OF ESTIMATED GFR ARE PERFORMED USING THE 2020 CKD-EPI STUDY REFIT EQUATION WITHOUT THE RACE VARIABLE FOR THE IDMS-TRACEABLE CREATININE METHODS.https://jasn.asnjournals.org/content//ASN .4913609025 Performed By: #### C MP ####[address] [address] Glucose [Mass/Vol] 175 mg/dL High 74 - 99 [facility] Comment on above: Performed By: #### C MP ####[address] [address] HCO3 (Bld) [Moles/Vol] 30 mmol/L Normal 21 - [address] [facility] Comment on above: Performed By: #### C MP ####[address] [address] Potassium [Moles/Vol] 3.6 mmol/L Normal 3.5 - 5.[address] [facility] Comment on above: Performed By: #### C MP ####[address] [address] Protein [Mass/Vol] 5.5 g/dL Low 6.4 - 8.2 [facility] Comment on above: Performed By: #### C MP ####[address] [address] Sodium [Moles/Vol] 138 mmol/L Normal 136 - 145 [facility] Comment on above: Performed By: #### C MP ####[address] [address] Urea nitrogen [Mass/Vol] 11 mg/dL Normal 6 - [address] [facility] Comment on above: Performed By: #### C MP ####[address] [address] Complete Blood Count + Diffe rentialon 12-05-2022 Basophils/100 WBC (Bld) 0.5 % 0.0 - 2.0 SK-Gfwocly-Nh [employer] Work Phone: Erythrocyte distribution width (RBC) [Ratio] 13.6 % See Below OS-Aeltkmm-Sp [employer] Work Phone: Comment on above: Reference Range: 11. 5 - 14.5 Hematocrit (Bld) [Volume fraction] 28.3 % below low threshold See Below PX-Ybaaajn-Gv [employer] Work Phone: Comment on above: Reference Range: 36. 0 - 46.0 Hemoglobin (Bld) [Mass/Vol] 8.9 g/dL below low threshold See Below DY-Llbyvnj-Gk [employer] Work Phone: Comment on above: Reference Range: 12. 0 - 16.0 Lymphocytes/100 WBC (Bld) 49.5 % See Below RW-Lgfqord-Dz [place] Work Phone: Comment on above: Reference Range: 13. 0 - 44.0 MCHC (RBC) [Mass/Vol] 31.4 g/dL below low threshold See Below EA-Sjofrdb-If [employer] Work Phone: Comment on above: Reference Range: 32. 0 - 36.0 MCV (RBC) [Entitic vol] 90 fL 80 - 100 MA-Breawof-Uz [place] Work Phone: Monocytes/100 WBC (Bld) 8.8 % 2.0 - 10.0 IK-Hhzwbjm-Yn [place] Work Phone: Neutrophils/100 WBC (Bld) 39.1 % See Below MB-Madbtch-Au [place] Work Phone: Comment on above: Reference Range: 40. 0 - 80.0 Platelets (Bld) [#/Vol] 253 10*3/uL 150 - 450 TO-Dwrmqle-Sa [place] Work Phone: RBC (Bld) [#/Vol] 3.13 {x10E12/L} below low threshold See Below HS-Eclgryk-Sp [place] Work Phone: Comment on above: Reference Range: 4.0 0 - 5.20 WBC (Bld) [#/Vol] 4.3 10*3/uL below low threshold 4.4 - 11.3 MH-Gparirc-Ds [place] Work Phone: Complete Blood Count + Differential 0.02 {x10E9/L} See Below RK-Kouktuc-Qh [place] Work Phone: Comment on above: Reference Range: 0.0 0 - 0.10 Complete Blood Count + Differential 0.08 {x10E9/L} See Below ID-Tnvukio-Yq [place] Work Phone: Comment on above: Reference Range: 0.0 0 - 0.70 Complete Blood Count + Differential 0.38 {x10E9/L} See Below CL-Lpkvvts-Rr [place] Work Phone: Comment on above: Reference Range: 0.1 0 - 1.00 Complete Blood Count + Differential 2.14 {x10E9/L} See Below ZD-Eizodbq-Nb [place] Work Phone: Comment on above: Reference Range: 1.2 0 - 4.80 Complete Blood Count + Differential 1.69 {x10E9/L} See Below IA-Rxfckoe-Uj [place] Work Phone: Comment on above: Reference Range: 1.2 0 - 7.70 Percent differential counts (%) should be interpreted in the context of the absolute cell counts (cells/L). Complete Blood Count + Differential 1.9 % 0.0 - 6.0 [facility] Work Phone: Complete Blood Count + Differential 0.2 % 0.0 - 0.9 [facility] Work Phone: Comment on above: Immature Granulocyte Count (IG) includes promyelocytes, myelocytes and metamyelocytes but does not include bands. Percent differential counts (%) should be interpreted in the context of the absolute cell counts (cells/L). Daily Progress Note-General Internal Medicineon 12-05-2022 Daily Progress Note-General Internal Medicine Normal [facility] Daily Progress Note-Urologyo n 12-05-2022 Daily Progress Note-Urology Normal [facility] GLUCOSE-POCTon 12-05-2022 Glucose [Mass/Vol] 124 mg/dL High [address] [place] [address] Comment on above: Result Comment: RN/Evangelista D NOTIFIED Performed By: #### G MAURA ####[address] [address] Glucose [Mass/Vol] 135 mg/dL High [address] [place] [address] Comment on above: Result Comment: RN/Evangelista D NOTIFIED Performed By: #### G MAURA ####[address] [address] Glucose [Mass/Vol] 136 mg/dL High [address] [place] [address] Comment on above: Result Comment: RN/M D NOTIFIED Performed By: #### G MAURA ####[address] [address] Glucose [Mass/Vol] 268 mg/dL High [address] [place] [address] Comment on above: Performed By: #### G MAURA ####[address] [address] Laboratory - Chemistry and C hemistry - challengeon 12-05-2022 Albumin BCP dye [Mass/Vol] 2.8 g/dL below low threshold 3.4 - 5.0 VZ-Yxsmoxh-Iw [place]isa Work Phone: ALP [Catalytic activity/Vol] 63 U/L 33 - 110 YY-Pxfrukf-Dc [place] Work Phone: ALT With P-5'-P [Catalytic activity/Vol] 12 U/L 7 - 45 ZU-Mneknjx-Ou denisa Work Phone: Comment on above: Patients treated wit h Sulfasalazine may generate falsely decreased results for ALT. Anion gap [Moles/Vol] 8 mmol/L below low threshold 10 - 20 OZ-Rnvruat-Aa denisa Work Phone: [phone] AST With P-5'-P [Catalytic activity/Vol] 9 U/L 9 - 39 NF-Fsiktyg-Aw [place] Work Phone: Bilirubin [Mass/Vol] 0.3 mg/dL 0.0 - 1.2 MP-U rology-Ra [place] Work Phone: Calcium [Mass/Vol] 8.1 mg/dL below low threshold 8.6 - 10.3 LZ-Xhlgank-Bt denisa Work Phone: [phone] Chloride [Moles/Vol] 104 mmol/L 98 - 107 MP-U rology-Ra [place] Work Phone: CO2 [Moles/Vol] 30 mmol/L 21 - 32 MP-Urolog y-Ra [place] Work Phone: Creatinine [Mass/Vol] 1.05 mg/dL See Below NZ-Trysujf-Vt denisa Work Phone: Comment on above: Reference Range: 0.5 0 - 1.05 Glucose [Mass/Vol] 175 mg/dL above high threshold 74 - 99 KK-Mesmxgm-Uq [place] Work Phone: Glucose [Mass/Vol] 124 mg/dL above high threshold 74 - 99 XH-Txqjhoq-Fw denisa Work Phone: Comment on above: RN/MD NOTIFIED Glucose [Mass/Vol] 135 mg/dL above high threshold 74 - 99 DR-Adtenyi-Rg [place] Work Phone: Comment on above: RN/MD NOTIFIED Glucose [Mass/Vol] 136 mg/dL above high threshold 74 - 99 ZT-Iqdrnee-Rn denisa Work Phone: Comment on above: RN/MD NOTIFIED Glucose [Mass/Vol] 268 mg/dL above high threshold 74 - 99 SI-Sqmabnq-Yd denisa Work Phone: Potassium [Moles/Vol] 3.6 mmol/L 3.5 - 5.3 BK-Ggbxilo-Jm denisa Work Phone: Protein [Mass/Vol] 5.5 g/dL below low threshold 6.4 - 8.2 DT-Sdwgukg-Rd sohan Work Phone: Sodium [Moles/Vol] 138 mmol/L 136 - 145 MP-Uro logy-Ra sohan Work Phone: Urea nitrogen [Mass/Vol] 11 mg/dL 6 - 23 GB-Sprqyhl-Zk denisa Work Phone: No Panel Informationon 12-05 -2022 67 {mL/min/1.73m2} >90 MP-Uro logy-Ra parry Work Phone: Comment on above: CALCULATIONS OF SACHIN MATED GFR ARE PERFORMED USING THE 2020 CKD-EPI STUDY REFIT EQUATION WITHOUT THE RACE VARIABLE FOR THE IDMS-TRACEABLE CREATININE METHODS.https://jasn.asnjournals.org/content//ASN .2930261438 BASIC METABOLIC PANELon - Anion gap [Moles/Vol] 10 mmol/L Normal 10 - [address] [facility] Comment on above: Performed By: #### B MP ####[id number] [place] [address] Calcium [Mass/Vol] 8.5 mg/dL Low 8.6 - 10.3 [facility] Comment on above: Performed By: #### B MP ####[address] [address] Chloride [Moles/Vol] 103 mmol/L Normal 98 - 107 [facility] Comment on above: Performed By: #### B MP ####[address] [address] Creatinine [Mass/Vol] 1.09 mg/dL High 0.50 - 1.[address] [facility] Comment on above: Performed By: #### B MP ####[address] [address] GFR/1.73 sq M.predicted among non-blacks MDRD (S/P/Bld) [Vol rate/Area] 64 mL/min/{1.73_m2} Normal >[address] [facility] Comment on above: Result Comment: CALC ULATIONS OF ESTIMATED GFR ARE PERFORMED USING THE 2020 CKD-EPI STUDY REFIT EQUATION WITHOUT THE RACE VARIABLE FOR THE IDMS-TRACEABLE CREATININE METHODS.https://jasn.asnjournals.org/content/early//ASN .8292860894 Performed By: #### B MP ####[address] [address] Glucose [Mass/Vol] 320 mg/dL High 74 - 99 [facility] [facility] Comment on above: Performed By: #### B MP ####[address] [address] HCO3 (Bld) [Moles/Vol] 26 mmol/L Normal 21 - [address] [facility] Comment on above: Performed By: #### B MP ####[address] [address] Potassium [Moles/Vol] 4.2 mmol/L Normal 3.5 - 5.[address] [facility] Comment on above: Performed By: #### B MP ####[address] [address] Sodium [Moles/Vol] 135 mmol/L Low 136 - 145 [facility] Comment on above: Performed By: #### B MP ####[address] [address] Urea nitrogen [Mass/Vol] 10 mg/dL Normal 6 - [address] [facility] Comment on above: Performed By: #### B MP ####[address] [address] CBCon 12-04-2022 Erythrocyte distribution width (RBC) [Ratio] 13.4 % Normal 11.5 - 14.[address] [facility] Comment on above: Performed By: #### C BC ####[address] [address] Hematocrit (Bld) [Volume fraction] 29.6 % Low 36.0 - 46.[address] [facility] Comment on above: Performed By: #### C BC ####[address] [address] Hemoglobin (Bld) [Mass/Vol] 9.5 g/dL Low 12.0 - 16.[address] [facility] Comment on above: Performed By: #### C BC ####[address] [address] MCHC (RBC) [Mass/Vol] 32.1 g/dL Normal 32.0 - 36.[address] [facility] Comment on above: Performed By: #### C BC ####[address] [address] MCV (RBC) [Entitic vol] 90 fL Normal 80 - [address] [facility] Comment on above: Performed By: #### C BC ####[address] [address] Platelets (Bld) [#/Vol] 229 10*3/uL Normal 150 - [address] [facility] Comment on above: Performed By: #### C BC ####[address] [address] RBC 3.29 x10E12/L Low 4.00 - 5.[address] [facility] Comment on above: Performed By: #### C BC ####[address] [address] WBC (Bld) [#/Vol] 3.7 10*3/uL Low 4.4 - 11.3 [facility] Comment on above: Performed By: #### C BC ####[address] [address] Daily Progress Note-General Internal Medicineon 12-04-2022 Daily Progress Note-General Internal Medicine Normal [facility] Daily Progress Note-Nephrolo gyon 12-04-2022 Daily Progress Note-Nephrology Normal [facility] Daily Progress Note-Urologyo n 12-04-2022 Daily Progress Note-Urology Normal [facility] GLUCOSE-POCTon 12-04-2022 Glucose [Mass/Vol] 267 mg/dL High 74 - 99 [facility] Comment on above: Performed By: #### G MAURA ####[place] [id number] Glucose [Mass/Vol] 244 mg/dL High [address] [place] [address] Comment on above: Performed By: #### G MAURA ####[address] [address] Glucose [Mass/Vol] 160 mg/dL High 74 - [address] [place] [address] Comment on above: Performed By: #### G MAURA ####[place] [id number] Glucose [Mass/Vol] 241 mg/dL High - [address] [place] [address] Comment on above: Performed By: #### G MAURA ####[place] [id number] Laboratory - Chemistry and C hemistry - challengeon 12-04-2022 Anion gap [Moles/Vol] 10 mmol/L 10 - 20 AJ-Hwmsxwb-Ql [place] Work Phone: [phone] Calcium [Mass/Vol] 8.5 mg/dL below low threshold 8.6 - 10.3 MK-Kgkocyj-Mb [place] Work Phone: [phone] Chloride [Moles/Vol] 103 mmol/L 98 - 107 MP-U rology-Ra [place] Work Phone: CO2 [Moles/Vol] 26 mmol/L 21 - 32 MP-Urolog y-Ra [place] Work Phone: [phone] Creatinine [Mass/Vol] 1.09 mg/dL above high threshold See Below GY-Vskoukm-Jb denisa Work Phone: [phone] Comment on above: Reference Range: 0.5 0 - 1.05 Glucose [Mass/Vol] 320 mg/dL above high threshold 74 - 99 NL-Ryltezm-Ax denisa Work Phone: Glucose [Mass/Vol] 267 mg/dL above high threshold 74 - 99 SH-Dgcmnlq-Ss denisa Work Phone: Glucose [Mass/Vol] 244 mg/dL above high threshold 74 - 99 AZ-Xpxtcmp-Hg denisa Work Phone: Glucose [Mass/Vol] 160 mg/dL above high threshold 74 - 99 ZW-Qikwcmb-Dm sohan Work Phone: Glucose [Mass/Vol] 241 mg/dL above high threshold 74 - 99 VY-Zibionm-Qj sohan Work Phone: [phone] Potassium [Moles/Vol] 4.2 mmol/L 3.5 - 5.3 CJ-Wawpuuw-Rr denisa Work Phone: Sodium [Moles/Vol] 135 mmol/L below low threshold 136 - 145 YM-Rhsmcmr-Lo sohan Work Phone: [phone] Urea nitrogen [Mass/Vol] 10 mg/dL 6 - 23 RH-Efkhwfd-Sj sohan Work Phone: Laboratory - Hematology and Cell countson 12-04-2022 Erythrocyte distribution width (RBC) [Ratio] 13.4 % See Below KL-Chehurq-Yo denisa Work Phone: Comment on above: Reference Range: 11. 5 - 14.5 Hematocrit (Bld) [Volume fraction] 29.6 % below low threshold See Below IG-Zklmvht-Ve denisa Work Phone: Comment on above: Reference Range: 36. 0 - 46.0 Hemoglobin (Bld) [Mass/Vol] 9.5 g/dL below low threshold See Below LD-Twndmlr-Gf denisa Work Phone: Comment on above: Reference Range: 12. 0 - 16.0 MCHC (RBC) [Mass/Vol] 32.1 g/dL See Below KB-Bwhfkyt-Nt denisa Work Phone: Comment on above: Reference Range: 32. 0 - 36.0 MCV (RBC) [Entitic vol] 90 fL 80 - 100 AN-Tibjfxt-Gu denisa Work Phone: Platelets (Bld) [#/Vol] 229 10*3/uL 150 - 450 WV-Emoawmq-Wy denisa Work Phone: RBC (Bld) [#/Vol] 3.29 {x10E12/L} below low threshold See Below MB-Vulplvs-Uq denisa Work Phone: Comment on above: Reference Range: 4.0 0 - 5.20 WBC (Bld) [#/Vol] 3.7 10*3/uL below low threshold 4.4 - 11.3 TR-Ktsafvl-Jh sohan Work Phone: No Panel Informationon 12-04 64 {mL/min/1.73m2} >90 MP-Uro logy-Ra sohan Work Phone: Comment on above: CALCULATIONS OF SACHIN MATED GFR ARE PERFORMED USING THE 2020 CKD-EPI STUDY REFIT EQUATION WITHOUT THE RACE VARIABLE FOR THE IDMS-TRACEABLE CREATININE METHODS.https://jasn.asnjournals.org/content/early//ASN .7933270454 Rehab Note-individual therap yon 12-04-2022 Rehab Note-individual therapy Normal [facility] CBCon 12-03-2022 Erythrocyte distribution width (RBC) [Ratio] 13.6 % Normal 11.5 - 14.[address] [facility] Comment on above: Performed By: #### C BC ####[facility] [place] [address] Hematocrit (Bld) [Volume fraction] 28.7 % Low 36.0 - 46.0 [facility] Comment on above: Performed By: #### C BC ####[address] [address] Hemoglobin (Bld) [Mass/Vol] 9.0 g/dL Low 12.0 - 16.[address] [facility] Comment on above: Performed By: #### C BC ####[address] [address] MCHC (RBC) [Mass/Vol] 31.4 g/dL Low 32.0 - 36.[address] [facility] Comment on above: Performed By: #### C BC ####[place] [id number] MCV (RBC) [Entitic vol] 93 fL Normal 80 - [address] [facility] Comment on above: Performed By: #### C BC ####[place] [id number] Platelets (Bld) [#/Vol] 236 10*3/uL Normal 150 - [address] [facility] Comment on above: Performed By: #### C BC ####[place] [address] RBC 3.10 x10E12/L Low 4.00 - 5.[address] [facility] Comment on above: Performed By: #### C BC ####[place] [id number] WBC (Bld) [#/Vol] 4.9 10*3/uL Normal 4.4 - 11.3 [facility] Comment on above: Performed By: #### C BC ####[place] [id number] COMPREHENSIVE PANELon 2022 Albumin [Mass/Vol] 2.8 g/dL Low 3.4 - 5.0 [facility] Comment on above: Performed By: #### C MP ####[address] [address] ALP [Catalytic activity/Vol] 64 U/L Normal 33 - [address] [facility] Comment on above: Performed By: #### C MP ####[facility] [id number] [place] [address] ALT [Catalytic activity/Vol] 13 U/L Normal 7 - [address] [facility] Comment on above: Result Comment: Bridget ents treated with Sulfasalazine may generate falsely decreased results for ALT. Performed By: #### C MP ####[address] [address] Anion gap [Moles/Vol] 10 mmol/L Normal 10 - [address] [facility] Comment on above: Performed By: #### C MP ####[address] [address] AST [Catalytic activity/Vol] 21 U/L Normal 9 - [address] [facility] Comment on above: Result Comment: MILD HEMOLYSIS DETECTED. The result may be falsely elevated due tohemolysis or other interferents. Clinical correlation is recommended.Repeat testing may be considered. Performed By: #### C MP ####[place] [id number] Bilirubin [Mass/Vol] 0.4 mg/dL Normal 0.0 - 1.2 [facility] Comment on above: Performed By: #### C MP ####[address] [address] Calcium [Mass/Vol] 7.8 mg/dL Low 8.6 - 10.3 [facility] Comment on above: Performed By: #### C MP ####[address] [address] Chloride [Moles/Vol] 108 mmol/L High 98 - 107 [facility] Comment on above: Performed By: #### C MP ####[address] [address] Creatinine [Mass/Vol] 1.51 mg/dL High 0.50 - 1.[address] [facility] Comment on above: Performed By: #### C MP ####[address] [address] GFR/1.73 sq M.predicted among non-blacks MDRD (S/P/Bld) [Vol rate/Area] 43 mL/min/{1.73_m2} Abnormal >[address] [facility] Comment on above: Result Comment: CALC ULATIONS OF ESTIMATED GFR ARE PERFORMED USING THE 2020 CKD-EPI STUDY REFIT EQUATION WITHOUT THE RACE VARIABLE FOR THE IDMS-TRACEABLE CREATININE METHODS.https://jasn.asnjournals.org/content//ASN .4005719197 Performed By: #### C MP ####[address] [address] Glucose [Mass/Vol] 185 mg/dL High 74 - 99 [facility] Comment on above: Performed By: #### C MP ####[address] [address] HCO3 (Bld) [Moles/Vol] 23 mmol/L Normal 21 - [address] [facility] Comment on above: Performed By: #### C MP ####[address] [address] Potassium [Moles/Vol] 4.7 mmol/L Normal 3.5 - 5.[address] [facility] Comment on above: Result Comment: MILD HEMOLYSIS DETECTED. The result may be falsely elevated due tohemolysis or other interferents. Clinical correlation is recommended.Repeat testing may be considered. Performed By: #### C MP ####[address] [address] Protein [Mass/Vol] 5.8 g/dL Low 6.4 - 8.2 [facility] Comment on above: Performed By: #### C MP ####[address] [address] Sodium [Moles/Vol] 136 mmol/L Normal 136 - 145 [facility] Comment on above: Performed By: #### C MP ####[address] [address] Urea nitrogen [Mass/Vol] 14 mg/dL Normal 6 - [address] [facility] Comment on above: Performed By: #### C MP ####[address] [address] Clinical Event Note-ED Post Discharge Result Follow Up: Atteon 12-03-2022 Clinical Event Note-ED Post Discharge Result Follow Up: Atte Normal [facility] Daily Progress Note-General Internal Medicineon 12-03-2022 Daily Progress Note-General Internal Medicine Normal [facility] Daily Progress Note-Nephrolo gyon 12-03-2022 Daily Progress Note-Nephrology Normal [facility] Daily Progress Note-Urologyo n 12-03-2022 Daily Progress Note-Urology Normal [facility] GLUCOSE-POCTon 12-03-2022 Glucose [Mass/Vol] 177 mg/dL High 74 - 99 [facility] Comment on above: Performed By: #### G MAURA ####[address] [address] Glucose [Mass/Vol] 126 mg/dL High 74 - [address] [place] [address] Comment on above: Performed By: #### G MAURA ####[address] [address] Glucose [Mass/Vol] 103 mg/dL High 74 - [address] [place] [address] Comment on above: Performed By: #### G MAURA ####[address] [address] Glucose [Mass/Vol] 154 mg/dL High 74 - [address] [place] [address] Comment on above: Performed By: #### G MAURA ####[address] [address] Glucose [Mass/Vol] 322 mg/dL High - [address] [place] [address] Comment on above: Performed By: #### G MAURA ####[address] [address] Laboratory - Chemistry and C hemistry - challengeon 12-03-2022 Albumin BCP dye [Mass/Vol] 2.8 g/dL below low threshold 3.4 - 5.0 TN-Emkyxzv-Et [place] Work Phone: ALP [Catalytic activity/Vol] 64 U/L 33 - 110 SD-Xshfbdx-Cq [place] Work Phone: ALT With P-5'-P [Catalytic activity/Vol] 13 U/L 7 - 45 MN-Vurtrxv-Og [place] Work Phone: Comment on above: Patients treated wit h Sulfasalazine may generate falsely decreased results for ALT. Anion gap [Moles/Vol] 10 mmol/L 10 - 20 UF-Mvpbtsb-Fz denisa Work Phone: AST With P-5'-P [Catalytic activity/Vol] 21 U/L 9 - 39 BQ-Bmhxqco-Uk denisa Work Phone: [phone] Comment on above: MILD HEMOLYSIS DETEC ENZO. The result may be falsely elevated due tohemolysis or other interferents. Clinical correlation is recommended.Repeat testing may be considered. Bilirubin [Mass/Vol] 0.4 mg/dL 0.0 - 1.2 [facility]han Work Phone: Calcium [Mass/Vol] 7.8 mg/dL below low threshold 8.6 - 10.3 MO-Mjkpswz-We sohan Work Phone: Chloride [Moles/Vol] 108 mmol/L above high threshold 98 - 107 HZ-Njfpmud-Ap denisa Work Phone: CO2 [Moles/Vol] 23 mmol/L 21 - 32 -Urolog y-Ra [employer] Work Phone: Creatinine [Mass/Vol] 1.51 mg/dL above high threshold See Below FF-Jmklsrj-Mm sohan Work Phone: Comment on above: Reference Range: 0.5 0 - 1.05 Glucose [Mass/Vol] 185 mg/dL above high threshold 74 - 99 RT-[place]-Rg denisa Work Phone: Glucose [Mass/Vol] 177 mg/dL above high threshold 74 - 99 OA-Dpbrdlv-Cd denisa Work Phone: Glucose [Mass/Vol] 126 mg/dL above high threshold 74 - 99 XM-Ayzodpg-Le denisa Work Phone: Glucose [Mass/Vol] 103 mg/dL above high threshold 74 - 99 QY-Lxwxvml-Hk denisa Work Phone: Glucose [Mass/Vol] 154 mg/dL above high threshold 74 - 99 FK-Kmdumjk-Uo denisa Work Phone: Glucose [Mass/Vol] 322 mg/dL above high threshold 74 - 99 BJ-Ggkkodo-Sb [place] Work Phone: Potassium [Moles/Vol] 4.7 mmol/L 3.5 - 5.3 WG-Acilunb-Xi [place] Work Phone: Comment on above: MILD HEMOLYSIS DETEC ENZO. The result may be falsely elevated due tohemolysis or other interferents. Clinical correlation is recommended.Repeat testing may be considered. Protein [Mass/Vol] 5.8 g/dL below low threshold 6.4 - 8.2 XV-Nffnobk-Fy [place] Work Phone: Sodium [Moles/Vol] 136 mmol/L 136 - [address] [facility]ro logy-Ra parry Work Phone: Urea nitrogen [Mass/Vol] 14 mg/dL 6 - 23 MQ-Cuvhzls-Oj [place] Work Phone: Laboratory - Hematology and Cell countson 12-03-2022 Erythrocyte distribution width (RBC) [Ratio] 13.6 % See Below RW-Emanwef-Oq [place] Work Phone: Comment on above: Reference Range: 11. 5 - 14.5 Hematocrit (Bld) [Volume fraction] 28.7 % below low threshold See Below JG-Lurxpsc-Ms [place] Work Phone: Comment on above: Reference Range: 36. 0 - 46.0 Hemoglobin (Bld) [Mass/Vol] 9.0 g/dL below low threshold See Below DI-Kqnrvdc-Jb [place] Work Phone: Comment on above: Reference Range: 12. 0 - 16.0 MCHC (RBC) [Mass/Vol] 31.4 g/dL below low threshold See Below OU-Iaoeksl-Hq sohan Work Phone: Comment on above: Reference Range: 32. 0 - 36.0 MCV (RBC) [Entitic vol] 93 fL 80 - 100 OY-Vrosnjv-Mg [place] Work Phone: Platelets (Bld) [#/Vol] 236 10*3/uL 150 - 450 ID-Eqcxdrk-Le denisa Work Phone: RBC (Bld) [#/Vol] 3.10 {x10E12/L} below low threshold See Below UM-Blqtmxv-Vt [place] Work Phone: Comment on above: Reference Range: 4.0 0 - 5.20 WBC (Bld) [#/Vol] 4.9 10*3/uL 4.4 - 11.3 MP-Uro logy-Ra denisa Work Phone: No Panel Informationon 12-03 43 {mL/min/1.73m2} Abnormal >90 MP-Uro logy-Ra [employer] Work Phone: Comment on above: CALCULATIONS OF SACHIN MATED GFR ARE PERFORMED USING THE 2020 CKD-EPI STUDY REFIT EQUATION WITHOUT THE RACE VARIABLE FOR THE IDMS-TRACEABLE CREATININE METHODS.https://jasn.asnjournals.org/content/early//ASN .3651852912 Please click on the link to view the study images Normal MT-Dvfuxmy-Ln [employer] Work Phone: Preop Checkliston 12-03-2022 Preop Checklist Normal [facility] Rehab Note-physical therapyo n 12-03-2022 Rehab Note-physical therapy Normal [facility] CBC AND DIFFERENTIALon 12-02 % AUTOMATED IMMATURE GRAN 0.2 % Normal 0.0 - 0.[address] [facility] Comment on above: Result Comment: Alla ture Granulocyte Count (IG) includes promyelocytes, myelocytes and metamyelocytes but does not include bands. Percent differential counts (%) should be interpreted in the context of the absolute cell counts (cells/L). Performed By: #### C BCDF ####[facility] [place] [address] Basophils (Bld) [#/Vol] 0.05 10*3/uL Normal 0.00 - 0.[address] [facility] Comment on above: Performed By: #### C BCDF ####[address] [address] Basophils/100 WBC (Bld) 0.8 % Normal 0.0 - 2.[address] [facility] Comment on above: Performed By: #### C BCDF ####[address] [address] Eosinophils (Bld) [#/Vol] 0.09 10*3/uL Normal 0.00 - 0.[address] [facility] Comment on above: Performed By: #### C BCDF ####[address] [address] Eosinophils/100 WBC (Bld) 1.5 % Normal 0.0 - 6.[address] [facility] Comment on above: Performed By: #### C BCDF ####[address] [address] Erythrocyte distribution width (RBC) [Ratio] 13.7 % Normal 11.5 - 14.[address] [facility] Comment on above: Performed By: #### C BCDF ####[address] [address] Hematocrit (Bld) [Volume fraction] 32.7 % Low 36.0 - 46.[address] [facility] Comment on above: Performed By: #### C BCDF ####[address] [address] Hemoglobin (Bld) [Mass/Vol] 10.0 g/dL Low 12.0 - 16.[address] [facility] Comment on above: Performed By: #### C BCDF ####[address] [address] Lymphocytes (Bld) [#/Vol] 2.11 10*3/uL Normal 1.20 - 4.[address] [facility] Comment on above: Performed By: #### C BCDF ####[address] [address] Lymphocytes/100 WBC (Bld) 35.0 % Normal 13.0 - 44.[address] [facility] Comment on above: Performed By: #### C BCDF ####[address] [address] MCHC (RBC) [Mass/Vol] 30.6 g/dL Low 32.0 - 36.[address] [facility] Comment on above: Performed By: #### C BCDF ####[address] [address] MCV (RBC) [Entitic vol] 94 fL Normal 80 - [address] [facility] Comment on above: Performed By: #### C BCDF ####[address] [address] Monocytes (Bld) [#/Vol] 0.43 10*3/uL Normal 0.10 - 1.[address] [facility] Comment on above: Performed By: #### C BCDF ####[address] [address] Monocytes/100 WBC (Bld) 7.1 % Normal 2.0 - 10.[address] [facility] Comment on above: Performed By: #### C BCDF ####[address] [address] Neutrophils (Bld) [#/Vol] 3.34 10*3/uL Normal 1.20 - 7.[address] [facility] Comment on above: Result Comment: Perc ent differential counts (%) should be interpreted in the context of the absolute cell counts (cells/L). Performed By: #### C BCDF ####[address] [address] Neutrophils/100 WBC (Bld) 55.4 % Normal 40.0 - 80.[address] [facility] Comment on above: Performed By: #### C BCDF ####[address] [address] Platelets (Bld) [#/Vol] 192 10*3/uL Normal 150 - [address] [facility] Comment on above: Performed By: #### C BCDF ####[address] [address] RBC 3.47 x10E12/L Low 4.00 - 5.[address] [facility] Comment on above: Performed By: #### C BCDF ####[address] [address] WBC (Bld) [#/Vol] 6.0 10*3/uL Normal 4.4 - 11.3 [facility] Comment on above: Performed By: #### C BCDF ####[address] [address] COMPREHENSIVE PANELon 2022 Albumin [Mass/Vol] 2.7 g/dL Low 3.4 - 5.0 [facility] Comment on above: Performed By: #### C MP ####[address] [address] ALP [Catalytic activity/Vol] 56 U/L Normal 33 - [address] [facility] Comment on above: Performed By: #### C MP ####[address] [address] ALT [Catalytic activity/Vol] 11 U/L Normal 7 - [address] [facility] Comment on above: Result Comment: Bridget ents treated with Sulfasalazine may generate falsely decreased results for ALT. Performed By: #### C MP ####[address] [address] Anion gap [Moles/Vol] 12 mmol/L Normal 10 - [address] [facility] Comment on above: Performed By: #### C MP ####[address] [address] AST [Catalytic activity/Vol] 9 U/L Normal 9 - [address] [facility] Comment on above: Performed By: #### C MP ####[address] [address] Bilirubin [Mass/Vol] 0.6 mg/dL Normal 0.0 - 1.2 [facility] Comment on above: Performed By: #### C MP ####[address] [address] Calcium [Mass/Vol] 7.0 mg/dL Low 8.6 - 10.3 [facility] Comment on above: Performed By: #### C MP ####[address] [address] Chloride [Moles/Vol] 104 mmol/L Normal 98 - 107 [facility] Comment on above: Performed By: #### C MP ####[address] [address] Creatinine [Mass/Vol] 2.02 mg/dL High 0.50 - 1.[address] [facility] Comment on above: Performed By: #### C MP ####[address] [address] GFR/1.73 sq M.predicted among non-blacks MDRD (S/P/Bld) [Vol rate/Area] 31 mL/min/{1.73_m2} Abnormal >[address] [facility] Comment on above: Result Comment: CALC ULATIONS OF ESTIMATED GFR ARE PERFORMED USING THE 2020 CKD-EPI STUDY REFIT EQUATION WITHOUT THE RACE VARIABLE FOR THE IDMS-TRACEABLE CREATININE METHODS.https://jasn.asnjournals.org/content/early/ASN .8965864933 Performed By: #### C MP ####[address] [address] Glucose [Mass/Vol] 360 mg/dL High 74 - 99 [facility] Comment on above: Performed By: #### C MP ####[address] [address] HCO3 (Bld) [Moles/Vol] 21 mmol/L Normal 21 - [address] [facility] Comment on above: Performed By: #### C MP ####[address] [address] Potassium [Moles/Vol] 4.1 mmol/L Normal 3.5 - 5.[address] [facility] Comment on above: Performed By: #### C MP ####[address] [address] Protein [Mass/Vol] 5.5 g/dL Low 6.4 - 8.2 [facility] Comment on above: Performed By: #### C MP ####[address] [address] Sodium [Moles/Vol] 133 mmol/L Low 136 - 145 [facility] Comment on above: Performed By: #### C MP ####[place] [address] [place] [address] Urea nitrogen [Mass/Vol] 23 mg/dL Normal 6 - [address] [facility] Comment on above: Performed By: #### C MP ####[place] [address] [place] [address] Complete Blood Count + Diffe rentialon 12-02-2022 Basophils/100 WBC (Bld) 0.8 % 0.0 - 2.0 OJ-Xqbsbok-Js venna Work Phone: Erythrocyte distribution width (RBC) [Ratio] 13.7 % See Below AI-Dywxvnl-Rc venna Work Phone: Comment on above: Reference Range: 11. 5 - 14.5 Hematocrit (Bld) [Volume fraction] 32.7 % below low threshold See Below PO-Hlmpyvi-Vr venna Work Phone: Comment on above: Reference Range: 36. 0 - 46.0 Hemoglobin (Bld) [Mass/Vol] 10.0 g/dL below low threshold See Below QN-Tfztzxw-Vb venna Work Phone: Comment on above: Reference Range: 12. 0 - 16.0 Lymphocytes/100 WBC (Bld) 35.0 % See Below OR-Snmxgya-Ud venna Work Phone: Comment on above: Reference Range: 13. 0 - 44.0 MCHC (RBC) [Mass/Vol] 30.6 g/dL below low threshold See Below IR-Juqvxtr-Lc venna Work Phone: Comment on above: Reference Range: 32. 0 - 36.0 MCV (RBC) [Entitic vol] 94 fL 80 - 100 QE-Wehxwib-Wz venna Work Phone: Monocytes/100 WBC (Bld) 7.1 % 2.0 - 10.0 OE-Wsoyswy-Vu venna Work Phone: Neutrophils/100 WBC (Bld) 55.4 % See Below KA-Qvpkhfm-Vc venna Work Phone: Comment on above: Reference Range: 40. 0 - 80.0 Platelets (Bld) [#/Vol] 192 10*3/uL 150 - 450 OZ-Ggszqgs-Fq sohan Work Phone: RBC (Bld) [#/Vol] 3.47 {x10E12/L} below low threshold See Below TR-Xwbvljh-Rq sohan Work Phone: Comment on above: Reference Range: 4.0 0 - 5.20 WBC (Bld) [#/Vol] 6.0 10*3/uL 4.4 - 11.[address] [facility]- sohan Work Phone: Complete Blood Count + Differential 0.05 {x10E9/L} See Below CG-Urttyjo-Vf sohan Work Phone: Comment on above: Reference Range: 0.0 0 - 0.10 Complete Blood Count + Differential 0.09 {x10E9/L} See Below ME-Ldksntr-If sohan Work Phone: Comment on above: Reference Range: 0.0 0 - 0.70 Complete Blood Count + Differential 0.43 {x10E9/L} See Below ZW-Qehxwzd-Qu sohan Work Phone: Comment on above: Reference Range: 0.1 0 - 1.00 Complete Blood Count + Differential 2.11 {x10E9/L} See Below BB-Ydgbwhd-Fk sohan Work Phone: Comment on above: Reference Range: 1.2 0 - 4.80 Complete Blood Count + Differential 3.34 {x10E9/L} See Below DO-Nytciae-Dl sohan Work Phone: Comment on above: Reference Range: 1.2 0 - 7.70 Percent differential counts (%) should be interpreted in the context of the absolute cell counts (cells/L). Complete Blood Count + Differential 1.5 % 0.0 - 6.0 ZD-Rxgfmjq-Bb sohan Work Phone: Complete Blood Count + Differential 0.2 % 0.0 - 0.9 VU-Viiwpez-Cd venna Work Phone: Comment on above: Immature Granulocyte Count (IG) includes promyelocytes, myelocytes and metamyelocytes but does not include bands. Percent differential counts (%) should be interpreted in the context of the absolute cell counts (cells/L). Consult-Nephrologyon 023 Consult-Nephrology Normal [facility] Daily Progress Note-General Internal Medicineon 12-02-2022 Daily Progress Note-General Internal Medicine Normal [facility] Daily Progress Note-Urologyo n 12-02-2022 Daily Progress Note-Urology Normal [facility] GLUCOSE-POCTon 12-02-2022 Glucose [Mass/Vol] 306 mg/dL High [address] [place] [address] Comment on above: Performed By: #### G MAURA ####[address] [address] Glucose [Mass/Vol] 321 mg/dL High [address] [place] [address] Comment on above: Performed By: #### G MAURA ####[address] [address] Glucose [Mass/Vol] 333 mg/dL High [address] [place] [address] Comment on above: Performed By: #### G MAURA ####[address] [address] Glucose [Mass/Vol] 223 mg/dL High [address] [place] [address] Comment on above: Performed By: #### G MAURA ####[address] [address] Glucose [Mass/Vol] 184 mg/dL High [address] [place] [address] Comment on above: Performed By: #### G MAURA ####[address] [address] Glucose [Mass/Vol] 215 mg/dL High [address] [place] [address] Comment on above: Performed By: #### G MAURA ####[address] [address] Laboratory - Chemistry and C hemistry - challengeon 12-02-2022 Albumin BCP dye [Mass/Vol] 2.7 g/dL below low threshold 3.4 - 5.0 VE-Vgdwnho-Qs denisa Work Phone: ALP [Catalytic activity/Vol] 56 U/L 33 - 110 OG-Dgroect-Hh denisa Work Phone: ALT With P-5'-P [Catalytic activity/Vol] 11 U/L 7 - 45 IZ-Clahamg-Xj denisa Work Phone: Comment on above: Patients treated wit h Sulfasalazine may generate falsely decreased results for ALT. Anion gap [Moles/Vol] 12 mmol/L 10 - 20 MJ-Jggkubs-Li denisa Work Phone: AST With P-5'-P [Catalytic activity/Vol] 9 U/L 9 - 39 EA-Zfihcxz-Yv denisa Work Phone: Bilirubin [Mass/Vol] 0.6 mg/dL 0.0 - 1.2 [facility] sohan Work Phone: Calcium [Mass/Vol] 7.0 mg/dL below low threshold 8.6 - 10.3 AK-Gnhnfgn-Me denisa Work Phone: Chloride [Moles/Vol] 104 mmol/L 98 - 107 MP[facility] sohan Work Phone: CO2 [Moles/Vol] 21 mmol/L 21 - 32 -Urolog y- denisa Work Phone: Creatinine [Mass/Vol] 2.02 mg/dL above high threshold See Below LK-Plknoey-Wu denisa Work Phone: Comment on above: Reference Range: 0.5 0 - 1.05 Glucose [Mass/Vol] 360 mg/dL above high threshold 74 - 99 IV-Kjmbxsi-Vh denisa Work Phone: Glucose [Mass/Vol] 306 mg/dL above high threshold 74 - 99 XQ-Fjcculj-Za denisa Work Phone: Glucose [Mass/Vol] 321 mg/dL above high threshold 74 - 99 MP-Qtnawkv-Wa denisa Work Phone: Glucose [Mass/Vol] 333 mg/dL above high threshold 74 - 99 MD-Hbxdevl-Qs venna Work Phone: Glucose [Mass/Vol] 223 mg/dL above high threshold 74 - 99 ER-Qptaowi-Hr denisa Work Phone: Glucose [Mass/Vol] 184 mg/dL above high threshold 74 - 99 UX-Opfstpo-Cc denisa Work Phone: Glucose [Mass/Vol] 215 mg/dL above high threshold 74 - 99 IP-Yxteyvb-Uf denisa Work Phone: Potassium [Moles/Vol] 4.1 mmol/L 3.5 - 5.3 HR-Ncqtcds-Zy denisa Work Phone: [phone] Protein [Mass/Vol] 5.5 g/dL below low threshold 6.4 - 8.2 EU-Utpzhpi-Hu denisa Work Phone: Sodium [Moles/Vol] 133 mmol/L below low threshold 136 - 145 AJ-Nqsydyj-Vw denisa Work Phone: Urea nitrogen [Mass/Vol] 23 mg/dL 6 - 23 DX-Xdglwgr-Am sohan Work Phone: No Panel Informationon 12-02 31 {mL/min/1.73m2} Abnormal >90 -Uro logy-Ra sohan Work Phone: [phone] Comment on above: CALCULATIONS OF SACHIN MATED GFR ARE PERFORMED USING THE 2020 CKD-EPI STUDY REFIT EQUATION WITHOUT THE RACE VARIABLE FOR THE IDMS-TRACEABLE CREATININE METHODS.https://jasn.asnjournals.org/content//ASN .4263047397 Nutrition Therapy-Assessment - MST 3on 12-02-2022 Nutrition Therapy-Assessment - MST [address] [facility] OT Evaluation v2-individual therapyon 12-02-2022 OT Evaluation v2-individual therapy Normal [facility] PT Evaluation v2-individual therapyon 12-02-2022 PT Evaluation v2-individual therapy Normal [facility] BASIC METABOLIC PANELon 11-06 Anion gap [Moles/Vol] 11 mmol/L Normal 10 - [address] [facility] Comment on above: Performed By: #### B MP ####[address] [address] Anion gap [Moles/Vol] 11 mmol/L Normal 10 - [address] [facility] Comment on above: Performed By: #### B MP ####[address] [address] Anion gap [Moles/Vol] 11 mmol/L Normal - [address] [facility] Comment on above: Performed By: #### B MP ####[address] [address] Calcium [Mass/Vol] 8.5 mg/dL Low 8.6 - 10.3 [facility] Comment on above: Performed By: #### B MP ####[address] [address] Calcium [Mass/Vol] 8.1 mg/dL Low 8.6 - 10.3 [facility] Comment on above: Performed By: #### B MP ####[address] [address] Calcium [Mass/Vol] 7.3 mg/dL Low 8.6 - 10.3 [facility] Comment on above: Result Comment: Conf irmed by repeat analysis Performed By: #### B MP ####[address] [address] Chloride [Moles/Vol] 97 mmol/L Low 98 - 107 [facility] Comment on above: Performed By: #### B MP ####[address] [address] Chloride [Moles/Vol] 97 mmol/L Low 98 - 107 [facility] Comment on above: Performed By: #### B MP ####[address] [address] Chloride [Moles/Vol] 99 mmol/L Normal 98 - 107 [facility] Comment on above: Performed By: #### B MP ####[address] [address] Creatinine [Mass/Vol] 1.00 mg/dL Normal 0.50 - 1.[address] [facility] Comment on above: Performed By: #### B MP ####[address] [address] Creatinine [Mass/Vol] 1.19 mg/dL High 0.50 - 1.[address] [facility] Comment on above: Performed By: #### B MP ####[address] [address] Creatinine [Mass/Vol] 1.90 mg/dL High 0.50 - 1.[address] [facility] Comment on above: Result Comment: Conf irmed by repeat analysis Performed By: #### B MP ####[address] [address] GFR/1.73 sq M.predicted among non-blacks MDRD (S/P/Bld) [Vol rate/Area] 71 mL/min/{1.73_m2} Normal >[address] [facility] Comment on above: Result Comment: CALC ULATIONS OF ESTIMATED GFR ARE PERFORMED USING THE 2020 CKD-EPI STUDY REFIT EQUATION WITHOUT THE RACE VARIABLE FOR THE IDMS-TRACEABLE CREATININE METHODS.https://jasn.asnjournals.org/content/early/ASN .0333408849 Performed By: #### B MP ####[address] [address] GFR/1.73 sq M.predicted among non-blacks MDRD (S/P/Bld) [Vol rate/Area] 58 mL/min/{1.73_m2} Abnormal >[address] [facility] Comment on above: Result Comment: CALC ULATIONS OF ESTIMATED GFR ARE PERFORMED USING THE 2020 CKD-EPI STUDY REFIT EQUATION WITHOUT THE RACE VARIABLE FOR THE IDMS-TRACEABLE CREATININE METHODS.https://jasn.asnjournals.org/content/early/ASN .6050362361 Performed By: #### B MP ####[address] [address] GFR/1.73 sq M.predicted among non-blacks MDRD (S/P/Bld) [Vol rate/Area] 33 mL/min/{1.73_m2} Abnormal >[address] [facility] Comment on above: Result Comment: CALC ULATIONS OF ESTIMATED GFR ARE PERFORMED USING THE 2020 CKD-EPI STUDY REFIT EQUATION WITHOUT THE RACE VARIABLE FOR THE IDMS-TRACEABLE CREATININE METHODS.https://jasn.asnjournals.org/content/early//ASN .4865747137 Performed By: #### B MP ####[address] [address] Glucose [Mass/Vol] 216 mg/dL High [address] [place] [address] Comment on above: Performed By: #### B MP ####[address] [address] Glucose [Mass/Vol] 161 mg/dL High [address] [place] [address] Comment on above: Performed By: #### B MP ####[address] [address] Glucose [Mass/Vol] 349 mg/dL High [address] [place] [address] Comment on above: Performed By: #### B MP ####[address] [address] HCO3 (Bld) [Moles/Vol] 29 mmol/L Normal 21 - [address] [facility] Comment on above: Performed By: #### B MP ####[address] [address] HCO3 (Bld) [Moles/Vol] 27 mmol/L Normal 21 - [address] [facility] Comment on above: Performed By: #### B MP ####[address] [address] HCO3 (Bld) [Moles/Vol] 23 mmol/L Normal 21 - [address] [facility] Comment on above: Performed By: #### B MP ####[address] [address] Potassium [Moles/Vol] 3.7 mmol/L Normal 3.5 - 5.[address] [facility] Comment on above: Performed By: #### B MP ####[address] [address] Potassium [Moles/Vol] 3.5 mmol/L Normal 3.5 - 5.[address] [facility] Comment on above: Performed By: #### B MP ####[address] [address] Potassium [Moles/Vol] 3.9 mmol/L Normal 3.5 - 5.[address] [facility] Comment on above: Performed By: #### B MP ####[address] [address] Sodium [Moles/Vol] 133 mmol/L Low 136 - 145 [facility] Comment on above: Performed By: #### B MP ####[address] [address] Sodium [Moles/Vol] 131 mmol/L Low 136 - 145 [facility] Comment on above: Performed By: #### B MP ####[address] [address] Sodium [Moles/Vol] 129 mmol/L Low 136 - 145 [facility] Comment on above: Result Comment: Conf irmed by repeat analysis Performed By: #### B MP ####[address] [address] Urea nitrogen [Mass/Vol] 16 mg/dL Normal 6 - [address] [facility] Comment on above: Performed By: #### B MP ####[address] [address] Urea nitrogen [Mass/Vol] 17 mg/dL Normal 6 - [address] [facility] Comment on above: Performed By: #### B MP ####[address] [address] Urea nitrogen [Mass/Vol] 21 mg/dL Normal 6 - [address] [facility] Comment on above: Performed By: #### B MP ####[address] [address] BNPon 12-01-2022 Natriuretic peptide B (Bld) [Mass/Vol] 47 pg/mL Normal 0 - [address] [facility] Comment on above: Result Comment: . <1 00 pg/mL - Heart failure [id number] pg/mL - Intermediate probability of acute heart. failure exacerbation. Correlate with clinical. context and patient history. >=300 pg/mL - Heart Failure likely. Correlate with clinical. context and patient history.BNP testing is performed using different testingmethodology at [facility] than at [facility]. Direct result comparisons shouldonly be made within the same method. Performed By: #### B NP2 ####[address] [address] CBCon 12-01-2022 Erythrocyte distribution width (RBC) [Ratio] 13.5 % Normal 11.5 - 14.[address] [facility] Comment on above: Performed By: #### C BC ####[address] [address] Hematocrit (Bld) [Volume fraction] 31.5 % Low 36.0 - 46.[address] [facility] Comment on above: Performed By: #### C BC ####[address] [address] Hemoglobin (Bld) [Mass/Vol] 9.7 g/dL Low 12.0 - 16.[address] [facility] Comment on above: Performed By: #### C BC ####[address] [address] MCHC (RBC) [Mass/Vol] 30.8 g/dL Low 32.0 - 36.[address] [facility] Comment on above: Performed By: #### C BC ####[address] [address] MCV (RBC) [Entitic vol] 93 fL Normal 80 - [address] [facility] Comment on above: Performed By: #### C BC ####[address] [address] Platelets (Bld) [#/Vol] 184 10*3/uL Normal 150 - [address] [facility] Comment on above: Performed By: #### C BC ####[address] [address] RBC 3.38 x10E12/L Low 4.00 - 5.[address] [facility] Comment on above: Performed By: #### C BC ####[address] [address] WBC (Bld) [#/Vol] 7.5 10*3/uL Normal 4.4 - 11.3 [facility] Comment on above: Performed By: #### C BC ####[place] [id number] COMPREHENSIVE PANELon 2022 Albumin [Mass/Vol] 2.9 g/dL Low 3.4 - 5.0 [facility] Comment on above: Performed By: #### C MP ####[address] [address] ALP [Catalytic activity/Vol] 56 U/L Normal 33 - [address] [facility] Comment on above: Performed By: #### C MP ####[address] [address] ALT [Catalytic activity/Vol] 10 U/L Normal 7 - [address] [facility] Comment on above: Result Comment: Bridget ents treated with Sulfasalazine may generate falsely decreased results for ALT. Performed By: #### C MP ####[address] [address] Anion gap [Moles/Vol] 12 mmol/L Normal 10 - [address] [facility] Comment on above: Performed By: #### C MP ####[address] [address] AST [Catalytic activity/Vol] 9 U/L Normal 9 - [address] [facility] Comment on above: Performed By: #### C MP ####[address] [address] Bilirubin [Mass/Vol] 0.7 mg/dL Normal 0.0 - 1.2 [facility] Comment on above: Performed By: #### C MP ####[address] [address] Calcium [Mass/Vol] 7.3 mg/dL Low 8.6 - 10.3 [facility] Comment on above: Performed By: #### C MP ####[address] [address] Chloride [Moles/Vol] 100 mmol/L Normal 98 - 107 [facility] Comment on above: Performed By: #### C MP ####[address] [address] Creatinine [Mass/Vol] 1.89 mg/dL High 0.50 - 1.[address] [facility] Comment on above: Performed By: #### C MP ####[address] [address] GFR/1.73 sq M.predicted among non-blacks MDRD (S/P/Bld) [Vol rate/Area] 33 mL/min/{1.73_m2} Abnormal >[address] [facility] Comment on above: Result Comment: CALC ULATIONS OF ESTIMATED GFR ARE PERFORMED USING THE 2020 CKD-EPI STUDY REFIT EQUATION WITHOUT THE RACE VARIABLE FOR THE IDMS-TRACEABLE CREATININE METHODS.https://jasn.asnjournals.org/content//ASN .5797630833 Performed By: #### C MP ####[address] [address] Glucose [Mass/Vol] 368 mg/dL High 74 - 99 [facility] Comment on above: Performed By: #### C MP ####[address] [address] HCO3 (Bld) [Moles/Vol] 23 mmol/L Normal 21 - [address] [facility] Comment on above: Performed By: #### C MP ####[address] [address] Potassium [Moles/Vol] 4.0 mmol/L Normal 3.5 - 5.[address] [facility] Comment on above: Performed By: #### C MP ####[address] [address] Protein [Mass/Vol] 5.9 g/dL Low 6.4 - 8.2 [facility] Comment on above: Performed By: #### C MP ####[address] [address] Sodium [Moles/Vol] 131 mmol/L Low 136 - 145 [facility] Comment on above: Performed By: #### C MP ####[address] [address] Urea nitrogen [Mass/Vol] 22 mg/dL Normal 6 - [address] [facility] Comment on above: Performed By: #### C MP ####[address] [address] Clinical Event Note-Anion GA P closedon 12-01-2022 Clinical Event Note-Anion GAP closed Normal [facility] Consult-Urologyon 12-01-2022 Consult-Urology Normal [facility] Daily Progress Note-General Internal Medicineon 12-01-2022 Daily Progress Note-General Internal Medicine Normal [facility] EMR ADDONon 12-01-2022 ADDON CONFIRMATION REQUEST REC'D Normal [facility] Comment on above: Performed By: #### E MRAD ####[address] [address] GLUCOSE-POCTon 12-01-2022 Glucose [Mass/Vol] 293 mg/dL High 74 - 99 [facility] Comment on above: Performed By: #### G MAURA ####[address] [address] Glucose [Mass/Vol] 197 mg/dL High 74 - 99 [facility] Comment on above: Performed By: #### G MAURA ####[address] [address] Glucose [Mass/Vol] 168 mg/dL High 74 - 99 [facility] Comment on above: Performed By: #### G MAURA ####[address] [address] Glucose [Mass/Vol] 175 mg/dL High 74 - 99 [facility] Comment on above: Performed By: #### G MAURA ####[address] [address] Glucose [Mass/Vol] 164 mg/dL High 74 - [address] [place] [address] Comment on above: Performed By: #### G MAURA ####[place] [address] [place] [address] Glucose [Mass/Vol] 159 mg/dL High 74 - [address] [place] [address] Comment on above: Performed By: #### G MAURA ####[place] [address] [place] [address] Glucose [Mass/Vol] 177 mg/dL High 74 - [address] [place] [address] Comment on above: Performed By: #### G MAURA ####[address] [address] Glucose [Mass/Vol] 194 mg/dL High 74 - [address] [place] [address] Comment on above: Performed By: #### G MAURA ####[address] [address] Glucose [Mass/Vol] 192 mg/dL High 74 - [address] [place] [address] Comment on above: Performed By: #### G MAURA ####[address] [address] Glucose [Mass/Vol] 200 mg/dL High 74 - [address] [place] [address] Comment on above: Performed By: #### G MAURA ####[address] [address] Glucose [Mass/Vol] 259 mg/dL High 74 - [address] [place] [address] Comment on above: Performed By: #### G MAURA ####[address] [address] Glucose [Mass/Vol] 306 mg/dL High 74 - [address] [place] [address] Comment on above: Performed By: #### G MAURA ####[place] [address] [place] [address] Glucose [Mass/Vol] 309 mg/dL High 74 - [address] [place] [address] Comment on above: Performed By: #### G MAURA ####[address] [address] Glucose [Mass/Vol] 326 mg/dL High - [address] [place] [address] Comment on above: Performed By: #### G MAURA ####[address] [address] Glucose [Mass/Vol] 338 mg/dL High 74 - 99 [facility] Comment on above: Performed By: #### G MAURA ####[address] [address] HEMOGLOBIN A1Con 12-01-2022 Glucose [Mass/Vol] 246 mg/dL Normal [facility] Comment on above: Performed By: #### H BA1E ####[address] [address] HbA1c (Bld) [Mass fraction] 10.2 % Abnormal [facility] Comment on above: Result Comment: Diag nosis of Diabetes-Adults Non-Diabetic: < or = 5.6% Increased risk for developing diabetes: 5.7-6.4% Diagnostic of diabetes: > or = 6.5%. Monitoring of Diabetes Age (y) Therapeutic Goal (%) Adults: >18 <7.0 Pediatrics: 13-18 <7.5 7-12 <8.0 0- 6 7.5-8.5 [employer]. Diabetes Care 33(S1), Sep 2009. Performed By: #### H BA1E ####[address] [address] Hemoglobin A1Con 12-01-2022 Glucose [Mass/Vol] 246 mg/dL MP-Uro logy- [employer] Work Phone: HbA1c (Bld) [Mass fraction] 10.2 % Abnormal LO-Vymomsr-Tc [employer] Work Phone: Comment on above: Diagnosis of Diabete s-Adults Non-Diabetic: < or = 5.6% Increased risk for developing diabetes: 5.7-6.4% Diagnostic of diabetes: > or = 6.5%. Monitoring of Diabetes Age (y) Therapeutic Goal (%) Adults: >18 <7.0 Pediatrics: 13-18 <7.5 7-12 <8.0 0- 6 7.5-8.5 [employer]. Diabetes Care 33(S1), Sep 2009. LACTATEon 12-01-2022 Lactate [Moles/Vol] 1.6 mmol/L Normal 0.4 - 2.0 [facility] Comment on above: Result Comment: [place] puncture immediately after or during the administration of Metamizole may lead to falsely low results. Testing should be performed immediately prior to Metamizole dosing. Performed By: #### L ACT ####[facility] [place] [address] Laboratory - Chemistry and C hemistry - challengeon 12-01-2022 Albumin BCP dye [Mass/Vol] 2.9 g/dL below low threshold 3.4 - 5.0 AL-Dhyhcep-Ae [place] Work Phone: ALP [Catalytic activity/Vol] 56 U/L 33 - 110 MK-Rihtmlh-Vn [place] Work Phone: ALT With P-5'-P [Catalytic activity/Vol] 10 U/L 7 - 45 NC-Uhmfwga-Xx [place] Work Phone: Comment on above: Patients treated wit h Sulfasalazine may generate falsely decreased results for ALT. Anion gap [Moles/Vol] 11 mmol/L 10 - 20 ZF-Ujzngdx-Kn [place] Work Phone: Anion gap [Moles/Vol] 11 mmol/L 10 - 20 CW-Tndivjj-Az [place] Work Phone: Anion gap [Moles/Vol] 11 mmol/L 10 - 20 IC-Eshdblb-Nu [place] Work Phone: Anion gap [Moles/Vol] 12 mmol/L 10 - 20 KC-Wmwhdos-Nl [place] Work Phone: AST With P-5'-P [Catalytic activity/Vol] 9 U/L 9 - 39 QH-Gexpnyf-Ub [place] Work Phone: Bilirubin [Mass/Vol] 0.7 mg/dL 0.0 - 1.2 MP-U rology-Ra [place] Work Phone: Calcium [Mass/Vol] 8.5 mg/dL below low threshold 8.6 - 10.3 JT-Uwsnwvr-Pc [place] Work Phone: Calcium [Mass/Vol] 8.1 mg/dL below low threshold 8.6 - 10.3 TP-Qlwmllm-Qs [place] Work Phone: Calcium [Mass/Vol] 7.3 mg/dL below low threshold 8.6 - 10.3 GW-Pzqadua-Ff [place] Work Phone: Comment on above: Confirmed by repeat analysis Calcium [Mass/Vol] 7.3 mg/dL below low threshold 8.6 - 10.3 JO-Ttedxkb-Tu [place] Work Phone: Chloride [Moles/Vol] 97 mmol/L below low threshold 98 - 107 UX-Hyztwez-Kz [place] Work Phone: Chloride [Moles/Vol] 97 mmol/L below low threshold 98 - 107 BU-Bvgyoft-Od [place] Work Phone: Chloride [Moles/Vol] 99 mmol/L 98 - 107 MP-U rology-Ra [place] Work Phone: Chloride [Moles/Vol] 100 mmol/L 98 - 107 MP-U rology-Ra [place] Work Phone: CO2 [Moles/Vol] 29 mmol/L 21 - 32 MP-Urolog y-Ra [place] Work Phone: CO2 [Moles/Vol] 27 mmol/L 21 - 32 MP-Urolog y-Ra [place] Work Phone: CO2 [Moles/Vol] 23 mmol/L 21 - 32 MP-Urolog y-Ra [place] Work Phone: CO2 [Moles/Vol] 23 mmol/L 21 - 32 MP-Urolog y-Ra [place] Work Phone: Creatinine [Mass/Vol] 1.00 mg/dL See Below [place]-Pbhzpth-Kh [place] Work Phone: Comment on above: Reference Range: 0.5 0 - 1.05 Creatinine [Mass/Vol] 1.19 mg/dL above high threshold See Below WN-Swuebae-Hk [place] Work Phone: [phone] Comment on above: Reference Range: 0.5 0 - 1.05 Creatinine [Mass/Vol] 1.90 mg/dL above high threshold See Below CI-Bszmoue-Te [place] Work Phone: Comment on above: Reference Range: 0.5 0 - 1.05Confirmed by repeat analysis Creatinine [Mass/Vol] 1.89 mg/dL above high threshold See Below MO-Gojynhj-Io [place] Work Phone: Comment on above: Reference Range: 0.5 0 - 1.05 Glucose [Mass/Vol] 216 mg/dL above high threshold 74 - 99 KT-Qzbqlxs-Yz [place] Work Phone: Glucose [Mass/Vol] 168 mg/dL above high threshold 74 - 99 KH-Qripgrs-Wr [place] Work Phone: Glucose [Mass/Vol] 175 mg/dL above high threshold 74 - 99 WJ-Ogvirap-Ri [place] Work Phone: Glucose [Mass/Vol] 164 mg/dL above high threshold 74 - 99 YZ-Zabsmsb-Km [place] Work Phone: Glucose [Mass/Vol] 159 mg/dL above high threshold 74 - 99 EZ-Dkwjddw-An [place] Work Phone: Glucose [Mass/Vol] 161 mg/dL above high threshold 74 - 99 TQ-Elgcyzv-Sf [place] Work Phone: Glucose [Mass/Vol] 177 mg/dL above high threshold 74 - 99 YN-Ofkgquz-Rr [place] Work Phone: [phone] Glucose [Mass/Vol] 194 mg/dL above high threshold 74 - 99 BC-Nfcopmd-La [place] Work Phone: Glucose [Mass/Vol] 192 mg/dL above high threshold 74 - 99 PM-Pxfvlth-Od [place] Work Phone: Glucose [Mass/Vol] 200 mg/dL above high threshold 74 - 99 YL-Cpyhtjb-Sv [place] Work Phone: Glucose [Mass/Vol] 259 mg/dL above high threshold 74 - 99 BM-Eudhskf-Yi [place] Work Phone: Glucose [Mass/Vol] 306 mg/dL above high threshold 74 - 99 DC-Bpsllvw-Gy [place] Work Phone: Glucose [Mass/Vol] 349 mg/dL above high threshold 74 - 99 LQ-Yqgvoxs-Co [place] Work Phone: Glucose [Mass/Vol] 309 mg/dL above high threshold 74 - 99 JF-Redlqvz-Or [place] Work Phone: Glucose [Mass/Vol] 326 mg/dL above high threshold 74 - 99 AQ-Qmjswdi-If [place] Work Phone: Glucose [Mass/Vol] 368 mg/dL above high threshold 74 - 99 DG-Rlfuzxj-Yr [place] Work Phone: Glucose [Mass/Vol] 338 mg/dL above high threshold 74 - 99 CA-Xxuhdek-Kb [place] Work Phone: Potassium [Moles/Vol] 3.7 mmol/L 3.5 - 5.3 OW-Hsondlp-Na [place] Work Phone: Potassium [Moles/Vol] 3.5 mmol/L 3.5 - 5.3 TG-Xjylnja-Gv [place] Work Phone: Potassium [Moles/Vol] 3.9 mmol/L 3.5 - 5.3 VS-Ophmdpl-Gb [place] Work Phone: Potassium [Moles/Vol] 4.0 mmol/L 3.5 - 5.3 BM-Nfputit-Sx [place] Work Phone: Protein [Mass/Vol] 5.9 g/dL below low threshold 6.4 - 8.2 UH-Bgqbxmy-Ug [place] Work Phone: Sodium [Moles/Vol] 133 mmol/L below low threshold 136 - 145 TW-Lenatqa-Pp [place] Work Phone: Sodium [Moles/Vol] 131 mmol/L below low threshold 136 - 145 EG-Oygoszh-Az [place] Work Phone: Sodium [Moles/Vol] 129 mmol/L below low threshold 136 - 145 RT-Lcbbqnr-Lu [place] Work Phone: Comment on above: Confirmed by repeat analysis Sodium [Moles/Vol] 131 mmol/L below low threshold 136 - 145 MZ-Aqmzacl-Cs [place] Work Phone: Urea nitrogen [Mass/Vol] 16 mg/dL 6 - 23 MB-Eptcyht-Ks venna Work Phone: Urea nitrogen [Mass/Vol] 17 mg/dL 6 - 23 ZS-Xhpulkn-Gj venna Work Phone: Urea nitrogen [Mass/Vol] 21 mg/dL 6 - 23 GR-Ciftppi-Fa venna Work Phone: Urea nitrogen [Mass/Vol] 22 mg/dL 6 - 23 HZ-Dwoeyog-Qe venna Work Phone: Laboratory - Hematology and Cell countson 12-01-2022 Erythrocyte distribution width (RBC) [Ratio] 13.5 % See Below PA-Kukkajq-Tj venna Work Phone: Comment on above: Reference Range: 11. 5 - 14.5 Hematocrit (Bld) [Volume fraction] 31.5 % below low threshold See Below SC-Rounpht-Hp venna Work Phone: Comment on above: Reference Range: 36. 0 - 46.0 Hemoglobin (Bld) [Mass/Vol] 9.7 g/dL below low threshold See Below MN-Ngrocii-An venna Work Phone: Comment on above: Reference Range: 12. 0 - 16.0 MCHC (RBC) [Mass/Vol] 30.8 g/dL below low threshold See Below HO-Moeqolf-Wo venna Work Phone: Comment on above: Reference Range: 32. 0 - 36.0 MCV (RBC) [Entitic vol] 93 fL 80 - 100 PA-Cjtpxgz-Km venna Work Phone: Platelets (Bld) [#/Vol] 184 10*3/uL 150 - 450 GN-Ugkeubg-Qi venna Work Phone: RBC (Bld) [#/Vol] 3.38 {x10E12/L} below low threshold See Below OL-Tonjczo-Ia venna Work Phone: Comment on above: Reference Range: 4.0 0 - 5.20 WBC (Bld) [#/Vol] 7.5 10*3/uL 4.4 - 11.3 MP-Uro logy-Ra denisa Work Phone: Lactate, Levelon 12-01-2022 Lactate [Moles/Vol] 1.6 mmol/L 0.4 - 2.0 MP-Ur ology-Ra denisa Work Phone: Comment on above: Venipuncture immedia tely after or during the administration of Metamizole may lead to falsely low results. Testing should be performed immediately prior to Metamizole dosing. No Panel Informationon 12-01 71 {mL/min/1.73m2} >90 MP-Uro logy-Ra denisa Work Phone: Comment on above: CALCULATIONS OF SACHIN MATED GFR ARE PERFORMED USING THE 2020 CKD-EPI STUDY REFIT EQUATION WITHOUT THE RACE VARIABLE FOR THE IDMS-TRACEABLE CREATININE METHODS.https://jasn.asnjournals.org/content/early/ASN .1218693290 58 {mL/min/1.73m2} Abnormal >90 MP-Uro logy-Ra denisa Work Phone: Comment on above: CALCULATIONS OF SACHIN MATED GFR ARE PERFORMED USING THE 2020 CKD-EPI STUDY REFIT EQUATION WITHOUT THE RACE VARIABLE FOR THE IDMS-TRACEABLE CREATININE METHODS.https://jasn.asnjournals.org/content//ASN .0359500278 47 pg/mL 0 - 99 VE-Cbegntw-Tu venna Work Phone: Comment on above: . <100 pg/mL - Heart failure [id number] pg/mL - Intermediate probability of acute heart. failure exacerbation. Correlate with clinical. context and patient history. >=300 pg/mL - Heart Failure likely. Correlate with clinical. context and patient history.BNP testing is performed using different testing methodology at [facility] than at other [facility]. Direct result comparisons should only be made within the same method. 33 {mL/min/1.73m2} Abnormal >90 MP-Uro logy-Ra [employer] Work Phone: Comment on above: CALCULATIONS OF SACHIN MATED GFR ARE PERFORMED USING THE 2020 CKD-EPI STUDY REFIT EQUATION WITHOUT THE RACE VARIABLE FOR THE IDMS-TRACEABLE CREATININE METHODS.https://jasn.asnjournals.org/content/earlyASN .0973481495 33 {mL/min/1.73m2} Abnormal >90 MP-Uro logy-Ra [employer] Work Phone: Comment on above: CALCULATIONS OF SACHIN MATED GFR ARE PERFORMED USING THE 2020 CKD-EPI STUDY REFIT EQUATION WITHOUT THE RACE VARIABLE FOR THE IDMS-TRACEABLE CREATININE METHODS.https://jasn.asnjournals.org/content//ASN .2671652012 ARTERIAL BLOOD GASon 023 APPARATUS Cannula Normal [facility] Comment on above: Performed By: #### B LGA2 ####[place] [address] BASE EXCESS-BLOOD 2.5 mmol/L Normal -2.0 - 3.0 [facility] Comment on above: Performed By: #### B LGA2 ####[place] [address] BICARB, CALCULATED 27.9 mmol/L High 22.0 - 26.0 [facility] Comment on above: Performed By: #### B LGA2 ####[place] [address] FIO2 28 % Normal [facility] Comment on above: Performed By: #### B LGA2 ####[place] [address] OXY HGB 95.5 % Normal 94.0 - 98.[address] [facility] Comment on above: Performed By: #### B LGA2 ####[address] [address] Oxygen (Bld) [Partial pressure] 98 mm[Hg] High 85 - [address] [facility] Comment on above: Performed By: #### B LGA2 ####[place] [id number] PATIENT TEMPERATURE 37.0 degrees C Normal [facility] Comment on above: Result Comment: NOTE : PATIENT RESULTS ARE NOT CORRECTED FOR TEMPERATURE. Performed By: #### B LGA2 ####[place] [id number] PCO2 45 mmHg High 38 - [address] [facility] Comment on above: Performed By: #### B LGA2 ####[address] [address] pH (Bld) 7.40 [pH] Normal 7.38 - 7.[address] [facility] Comment on above: Performed By: #### B LGA2 ####[place] [address] SO2 99 % Normal 94 - [address] [facility] Comment on above: Performed By: #### B LGA2 ####[place] [id number] Admission Risk Screen - Adul ton 11-30-2022 Admission Risk Screen - Adult Normal [facility] BASIC METABOLIC PANELon 11-06 Anion gap [Moles/Vol] 22 mmol/L High 10 - [address] [facility] Comment on above: Order Comment: Alexandru MATTHEWS to Shy Ortiz , 11/30/2022 15:32 Performed By: #### B MP ####[place] [id number] Anion gap [Moles/Vol] 12 mmol/L Normal - [facility] Comment on above: Performed By: #### B MP ####[address] [address] Calcium [Mass/Vol] 9.6 mg/dL Normal 8.6 - 10.3 [facility] Comment on above: Order Comment: Horvath d- RB to Shy Ortiz , 11/30/2022 15:32 Performed By: #### B MP ####[address] [address] Calcium [Mass/Vol] 8.8 mg/dL Normal 8.6 - 10.3 [facility] Comment on above: Performed By: #### B MP ####[address] [address] Chloride [Moles/Vol] 85 mmol/L Low 98 - 107 [facility] Comment on above: Order Comment: Horvath d- RB to Shy Ortiz , 11/30/2022 15:32 Performed By: #### B MP ####[address] [address] Chloride [Moles/Vol] 97 mmol/L Low 98 - 107 [facility] Comment on above: Performed By: #### B MP ####[address] [address] Creatinine [Mass/Vol] 1.18 mg/dL High 0.50 - 1.[address] [facility] Comment on above: Order Comment: Horvath d- RB to Shy Ortiz , 11/30/2022 15:32 Performed By: #### B MP ####[address] [address] Creatinine [Mass/Vol] 1.03 mg/dL Normal 0.50 - 1.[address] [facility] Comment on above: Performed By: #### B MP ####[address] [address] GFR/1.73 sq M.predicted among non-blacks MDRD (S/P/Bld) [Vol rate/Area] 58 mL/min/{1.73_m2} Abnormal >[address] [facility] Comment on above: Order Comment: Horvath d- RB to Shy Ortiz , 11/30/2022 15:32 Result Comment: CALC ULATIONS OF ESTIMATED GFR ARE PERFORMED USING THE 2020 CKD-EPI STUDY REFIT EQUATION WITHOUT THE RACE VARIABLE FOR THE IDMS-TRACEABLE CREATININE METHODS.https://jasn.asnjournals.org/content/early/ASN .3568888885 Performed By: #### B MP ####[address] [address] GFR/1.73 sq M.predicted among non-blacks MDRD (S/P/Bld) [Vol rate/Area] 68 mL/min/{1.73_m2} Normal >[address] [facility] Comment on above: Result Comment: CALC ULATIONS OF ESTIMATED GFR ARE PERFORMED USING THE 2020 CKD-EPI STUDY REFIT EQUATION WITHOUT THE RACE VARIABLE FOR THE IDMS-TRACEABLE CREATININE METHODS.https://jasn.asnjournals.org/content/early/ASN .4727140027 Performed By: #### B MP ####[address] [address] Glucose [Mass/Vol] 649 mg/dL Critically high 74 - 99 [facility] Comment on above: Order Comment: Horvath d- RB to Shy Angel , 11/30/2022 15:32 Result Comment: Call ed- RB to Shy Schmishel , 11/30/2022 15:32 Performed By: #### B MP ####[address] [address] Glucose [Mass/Vol] 374 mg/dL High 74 - 99 [facility] Comment on above: Performed By: #### B MP ####[address] [address] HCO3 (Bld) [Moles/Vol] 24 mmol/L Normal 21 - [address] [facility] Comment on above: Order Comment: Horvath d- RB to Shy Angel , 11/30/2022 15:32 Performed By: #### B MP ####[address] [address] HCO3 (Bld) [Moles/Vol] 27 mmol/L Normal 21 - [address] [facility] Comment on above: Performed By: #### B MP ####[address] [address] Potassium [Moles/Vol] 4.6 mmol/L Normal 3.5 - 5.[address] [facility] Comment on above: Order Comment: Alexandru parra- RB to Shy Ortiz , 11/30/2022 15:32 Performed By: #### B MP ####[address] [address] Potassium [Moles/Vol] 4.1 mmol/L Normal 3.5 - 5.[address] [facility] Comment on above: Performed By: #### B MP ####[address] [address] Sodium [Moles/Vol] 126 mmol/L Low 136 - 145 [facility] Comment on above: Order Comment: Alexandru parra- RB to Shy Ortiz , 11/30/2022 15:32 Performed By: #### B MP ####[address] [address] Sodium [Moles/Vol] 132 mmol/L Low 136 - 145 [facility] Comment on above: Performed By: #### B MP ####[address] [address] Urea nitrogen [Mass/Vol] 23 mg/dL Normal 6 - [address] [facility] Comment on above: Order Comment: Alexandru medeiros RB to Shy Ortiz , 11/30/2022 15:32 Performed By: #### B MP ####[address] [address] Urea nitrogen [Mass/Vol] 19 mg/dL Normal 6 - [address] [facility] Comment on above: Performed By: #### B MP ####[address] [address] BETA-HYDROXYBUTYRATEon 11-30 BETA-HYDROXYBUTYRATE 2.50 mmol/L High 0.02 - 0.27 [facility] Comment on above: Result Comment: The beta-hydroxybutyrate test performance characteristics have been validated by [facility] laboratory. This test has not been approved by the FDA; however, such approval is not necessary. Performed By: #### B HB2 ####[address] [address] BLOOD CULTURE, BACTERIALon 0 11-30-2022 BLOOD CULTURE, BACTERIAL Normal [facility] Comment on above: Performed By: #### B [facility] ####[id number] [place] [address] Beta Hydroxybutyrate, Serumo n 11-30-2022 Beta hydroxybutyrate [Mass or moles/Vol] 2.50 mmol/L above high threshold See Below HP-Xeyxlcx-Mw venna Work Phone: Comment on above: Reference Range: 0.0 2 - 0.27 The beta-hydroxybutyrate test performance characteristics have been validated by [facility] laboratory. This test has not been approved by the FDA; however, such approval is not necessary. CBC AND DIFFERENTIALon 11-30 % AUTOMATED IMMATURE GRAN 0.2 % Normal 0.0 - 0.[address] [facility] Comment on above: Result Comment: Alla ture Granulocyte Count (IG) includes promyelocytes, myelocytes and metamyelocytes but does not include bands. Percent differential counts (%) should be interpreted in the context of the absolute cell counts (cells/L). Performed By: #### C BCDF ####[address] [address] Basophils (Bld) [#/Vol] 0.09 10*3/uL Normal 0.00 - 0.[address] [facility] Comment on above: Performed By: #### C BCDF ####[address] [address] Basophils/100 WBC (Bld) 0.7 % Normal 0.0 - 2.[address] [facility] Comment on above: Performed By: #### C BCDF ####[address] [address] Eosinophils (Bld) [#/Vol] 0.01 10*3/uL Normal 0.00 - 0.[address] [facility] Comment on above: Performed By: #### C BCDF ####[address] [address] Eosinophils/100 WBC (Bld) 0.1 % Normal 0.0 - 6.[address] [facility] Comment on above: Performed By: #### C BCDF ####[address] [address] Erythrocyte distribution width (RBC) [Ratio] 13.2 % Normal 11.5 - 14.[address] [facility] Comment on above: Performed By: #### C BCDF ####[address] [address] Hematocrit (Bld) [Volume fraction] 39.9 % Normal 36.0 - 46.[address] [facility] Comment on above: Performed By: #### C BCDF ####[address] [address] Hemoglobin (Bld) [Mass/Vol] 13.2 g/dL Normal 12.0 - 16.[address] [facility] Comment on above: Performed By: #### C BCDF ####[address] [address] Lymphocytes (Bld) [#/Vol] 1.75 10*3/uL Normal 1.20 - 4.[address] [facility] Comment on above: Performed By: #### C BCDF ####[address] [address] Lymphocytes/100 WBC (Bld) 13.8 % Normal 13.0 - 44.[address] [facility] Comment on above: Performed By: #### C BCDF ####[address] [address] MCHC (RBC) [Mass/Vol] 33.1 g/dL Normal 32.0 - 36.[address] [facility] Comment on above: Performed By: #### C BCDF ####[address] [address] MCV (RBC) [Entitic vol] 88 fL Normal 80 - [address] [facility] Comment on above: Performed By: #### C BCDF ####[address] [address] Monocytes (Bld) [#/Vol] 0.95 10*3/uL Normal 0.10 - 1.[address] [facility] Comment on above: Performed By: #### C BCDF ####[address] [address] Monocytes/100 WBC (Bld) 7.5 % Normal 2.0 - 10.[address] [facility] Comment on above: Performed By: #### C BCDF ####[address] [address] Neutrophils (Bld) [#/Vol] 9.85 10*3/uL High 1.20 - 7.[address] [facility] Comment on above: Result Comment: Perc ent differential counts (%) should be interpreted in the context of the absolute cell counts (cells/L). Performed By: #### C BCDF ####[address] [address] Neutrophils/100 WBC (Bld) 77.7 % Normal 40.0 - 80.[address] [facility] Comment on above: Performed By: #### C BCDF ####[address] [address] Platelets (Bld) [#/Vol] 254 10*3/uL Normal 150 - [address] [facility] Comment on above: Performed By: #### C BCDF ####[address] [address] RBC 4.54 x10E12/L Normal 4.00 - 5.[address] [facility] Comment on above: Performed By: #### C BCDF ####[address] [address] WBC (Bld) [#/Vol] 12.7 10*3/uL High 4.4 - 11.3 [facility] Comment on above: Performed By: #### C BCDF ####[address] [address] CHEST 1 VIEWon 11-30-2022 CHEST 1 VIEW [address] [facility] CT ABDOMEN AND PELVIS WO CON TRASTon 11-30-2022 CT ABDOMEN AND PELVIS WO CONTRAST Normal [facility] CT Abdomen and Pelvis withou t Contraston 11-30-2022 CT Abdomen and Pelvis WO contrast Normal ZR-Sqkwiww-Bx venna Work Phone: Complete Blood Count + Diffjavier day 11-30-2022 Basophils/100 WBC (Bld) 0.7 % 0.0 - 2.0 QW-Apndscv-Yc sohan Work Phone: Erythrocyte distribution width (RBC) [Ratio] 13.2 % See Below LD-Cgqxkkf-Dx sohan Work Phone: Comment on above: Reference Range: 11. 5 - 14.5 Hematocrit (Bld) [Volume fraction] 39.9 % See Below AO-Fracyas-Bk sohan Work Phone: Comment on above: Reference Range: 36. 0 - 46.0 Hemoglobin (Bld) [Mass/Vol] 13.2 g/dL See Below VU-Pwvxtfy-Tc sohan Work Phone: Comment on above: Reference Range: 12. 0 - 16.0 Lymphocytes/100 WBC (Bld) 13.8 % See Below EN-Ogtjnig-Zi venna Work Phone: Comment on above: Reference Range: 13. 0 - 44.0 MCHC (RBC) [Mass/Vol] 33.1 g/dL See Below NV-Jcyckrg-Rm venna Work Phone: Comment on above: Reference Range: 32. 0 - 36.0 MCV (RBC) [Entitic vol] 88 fL 80 - 100 FA-Itqbggy-Vf venna Work Phone: Monocytes/100 WBC (Bld) 7.5 % 2.0 - 10.0 YL-Amhrnbq-Jt sohan Work Phone: Neutrophils/100 WBC (Bld) 77.7 % See Below PC-Yeegcyr-Av sohan Work Phone: Comment on above: Reference Range: 40. 0 - 80.0 Platelets (Bld) [#/Vol] 254 10*3/uL 150 - 450 HO-Vvgqeka-Pk sohan Work Phone: RBC (Bld) [#/Vol] 4.54 {x10E12/L} See Below [facility] Work Phone: Comment on above: Reference Range: 4.0 0 - 5.20 WBC (Bld) [#/Vol] 12.7 10*3/uL above high threshold 4.4 - 11.3 XN-Pgjrsxn-NvAfshin parry Work Phone: Complete Blood Count + Differential 0.09 {x10E9/L} See Below QN-Rnliqqs-Bf venna Work Phone: Comment on above: Reference Range: 0.0 0 - 0.10 Complete Blood Count + Differential 0.01 {x10E9/L} See Below VZ-Pmauaof-Xu venna Work Phone: Comment on above: Reference Range: 0.0 0 - 0.70 Complete Blood Count + Differential 0.95 {x10E9/L} See Below GR-Ylknnxr-Jn venna Work Phone: Comment on above: Reference Range: 0.1 0 - 1.00 Complete Blood Count + Differential 1.75 {x10E9/L} See Below OM-Xcycccg-VgAnne parry Work Phone: Comment on above: Reference Range: 1.2 0 - 4.80 Complete Blood Count + Differential 9.85 {x10E9/L} above high threshold See Below JA-Rxsoycx-QdAnne parry Work Phone: Comment on above: Reference Range: 1.2 0 - 7.70 Percent differential counts (%) should be interpreted in the context of the absolute cell counts (cells/L). Complete Blood Count + Differential 0.1 % 0.0 - 6.0 JM-Eccvzdl-Rz venna Work Phone: Complete Blood Count + Differential 0.2 % 0.0 - 0.9 BK-Ncppzew-AuAfshin parry Work Phone: Comment on above: Immature Granulocyte Count (IG) includes promyelocytes, myelocytes and metamyelocytes but does not include bands. Percent differential counts (%) should be interpreted in the context of the absolute cell counts (cells/L). Covid 19 Resultson 03-26-202 3 SARS-CoV-2 (COVID-19) RNA GLENNA+probe Ql (Unsp spec) Normal [facility] Cult, Bloodon 11-30-2022 Bacteria identified Cx Nom (Bld) QO-Bauwgww-Be [employer] Work Phone: Cult, Urineon 11-30-2022 Bacteria identified Cx Nom (U) Abnormal KG-Yeyobnr-Sc [employer] Work Phone: Discharge Planning Axoh4hb 0 11-30-2022 Discharge Planning Note2 Normal [facility] GLUCOSE-POCTon 11-30-2022 Glucose [Mass/Vol] 416 mg/dL High [address] [place] [address] Comment on above: Performed By: #### G MAURA ####[address] [address] Glucose [Mass/Vol] 426 mg/dL High [address] [place] [address] Comment on above: Performed By: #### G MAURA ####[address] [address] Glucose [Mass/Vol] 382 mg/dL High [address] [place] [address] Comment on above: Performed By: #### G MAURA ####[address] [address] Glucose [Mass/Vol] 367 mg/dL High [address] [place] [address] Comment on above: Performed By: #### G MAURA ####[address] [address] Glucose [Mass/Vol] 313 mg/dL High [address] [place] [address] Comment on above: Performed By: #### G MAURA ####[address] [address] Glucose [Mass/Vol] 284 mg/dL High [address] [place] [address] Comment on above: Performed By: #### G MAURA ####[address] [address] HCG,URINEon 11-30-2022 Beta HCG ( test) Ql (U) Negative Normal Negative [facility] Comment on above: Performed By: #### H CGU ####[address] [address] HEPATIC FUNCTION PANELon Albumin [Mass/Vol] 3.8 g/dL Normal 3.4 - 5.0 [facility] Comment on above: Performed By: #### H EPFP ####[address] [address] ALP [Catalytic activity/Vol] 83 U/L Normal 33 - [address] [facility] Comment on above: Performed By: #### H EPFP ####[address] [address] ALT [Catalytic activity/Vol] 11 U/L Normal 7 - [address] [facility] Comment on above: Result Comment: Bridget ents treated with Sulfasalazine may generate falsely decreased results for ALT. Performed By: #### H EPFP ####[address] [address] AST [Catalytic activity/Vol] 6 U/L Low 9 - [address] [facility] Comment on above: Performed By: #### H EPFP ####[address] [address] Bilirubin [Mass/Vol] 1.6 mg/dL High 0.0 - 1.2 [facility] Comment on above: Performed By: #### H EPFP ####[address] [address] Bilirubin.indirect [Mass/Vol] 0.3 mg/dL Normal 0.0 - 0.[address] [facility] Comment on above: Performed By: #### H EPFP ####[address] [address] Protein [Mass/Vol] 7.6 g/dL Normal 6.4 - 8.2 [facility] Comment on above: Performed By: #### H EPFP ####[address] [address] Hepatic Function Panelon Albumin BCP dye [Mass/Vol] 3.8 g/dL 3.4 - 5.0 IT-Kvnwzit-Vw venna Work Phone: ALP [Catalytic activity/Vol] 83 U/L 33 - 110 [facility] Work Phone: ALT With P-5'-P [Catalytic activity/Vol] 11 U/L 7 - 45 BC-Enmunjy-Jp venna Work Phone: Comment on above: Patients treated wit h Sulfasalazine may generate falsely decreased results for ALT. AST With P-5'-P [Catalytic activity/Vol] 6 U/L below low threshold 9 - 39 XL-Ekfzedg-Cj venna Work Phone: Bilirubin [Mass/Vol] 1.6 mg/dL above high threshold 0.0 - 1.2 YM-[facility]xqridy-Xm [facility] Work Phone: Bilirubin.direct [Mass/Vol] 0.3 mg/dL 0.0 - 0.3 IP-Zdfwtxu-Ds venna Work Phone: Protein [Mass/Vol] 7.6 g/dL 6.4 - 8.2 -Uro logy- [employer] Work Phone: INFLUENZA A/B, COVID 2019 PC R,SYMPTOMATICon 11-30-2022 INFLUENZA A, PCR Not detected Normal Not Detected [facility] Comment on above: Result Comment: Resp iratory virus testing is performed routinely by PCR for Influenza A/B and RSV. Not Detected results do not preclude Influenza A/B or RSV infections since the adequacy of sample collection or low viral burden may impact the clinical sensitivity of this test method. Performed By: #### C OINP ####[place] [address] INFLUENZA B, PCR Not detected Normal Not Detected [facility] Comment on above: Result Comment: Resp iratory virus testing is performed routinely by PCR for Influenza A/B and RSV. Not Detected results do not preclude Influenza A/B or RSV infections since the adequacy of sample collection or low viral burden may impact the clinical sensitivity of this test method. Performed By: #### C OINP ####[place] [address] Lab Specimen Source Nasal, Nasopharyngeal Normal [facility] Comment on above: Performed By: #### C OINP ####[place] [address] SARS-CoV-2 (COVID-19) RNA GLENNA+probe Ql (Unsp spec) Not detected Normal Not Detected [facility] Comment on above: Result Comment: .Sherri s test has received FDA Emergency Use Authorization (EUA) and has beenverified by [facility]. This test is onlyauthorized for the duration of time that circumstances exist to justify theauthorization of the emergency use of in vitro diagnostic tests for thedetection of SARS-CoV-2 virus and/or diagnosis of COVID-19 infection undersection 564(b)(1) of the Act, 21 U.S.C. 360bbb-3(b)(1), unless theauthorization is terminated or revoked sooner.[facility] is certified under CLIA-88 asqualified to perform high complexity testing. Testing is performed in [facility] laboratory located at [address] [place] [address].SARS-CoV-2/Flu/RSV Multiplex Test:Fact sheet for providers: https://www.fda.gov/media/329197/downloadFact sheet for patients: https://www.fda.gov/media/619673/download Performed By: #### C OINP ####[place] [address] INFLUENZA A/B, COVID 2019 PCR,SYMPTOMATIC Not detected See Below MP-Urology- Ra parry Work Phone: Comment on above: Reference Range: Not Detected.This test has received FDA Emergency Use Authorization (EUA) and has been verified by [facility]. This test is only authorized for the duration of time that circumstances exist to justify the authorization of the emergency use of in vitro diagnostic tests for the detection of SARS-CoV-2 virus and/or diagnosis of COVID-19 infection under section 564(b)(1) of the Act, 21 U.S.C. 360bbb-3(b)(1), unless the authorization is terminated or revoked sooner. [facility] is certified under CLIA-88 as qualified to perform high complexity testing. Testing is performed in the [facility] laboratory located at [address] [place] [address].SARS-CoV-2/Flu/RSV Multiplex Test: Fact sheet for providers: https://www.fda.gov/media/840176/downloadFact sheet for patients: https://www.fda.gov/media/014915/download Reference Range: Not Detected Respiratory virus testing is performed routinely by PCR for Influenza A/B and RSV. Not Detected results do not preclude Influenza A/B or RSV infections since the adequacy of sample collection or low viral burden may impact the clinical sensitivity of this test method. SOURCE: Nasal, Nasop haryngealReference Range: Not Detected Respiratory virus testing is performed routinely by PCR for Influenza A/B and RSV. Not Detected results do not preclude Influenza A/B or RSV infections since the adequacy of sample collection or low viral burden may impact the clinical sensitivity of this test method. LACTATEon 11-30-2022 Lactate [Moles/Vol] 1.5 mmol/L Normal [facility].4 - 2.0 [facility] Comment on above: Result Comment: Paris puncture immediately after or during the administration of Metamizole may lead to falsely low results. Testing should be performed immediately prior to Metamizole dosing. Performed By: #### L ACT ####[place] [address] LIPASEon 11-30-2022 Lipase [Catalytic activity/Vol] 18 U/L Normal 9 - [address] [facility] Comment on above: Result Comment: Paris puncture immediately after or during the administration of Metamizole may lead to falsely low results. Testing should be performed immediately prior to Metamizole dosing. T-lsjdog-z-benzoquinone imine (metabolite of Acetaminophen) will generate erroneously low results in samples for patients that have taken toxic doses of acetaminophen. Performed By: #### L IPAS ####[place] [address] Laboratory - Chemistry and C hemistry - challengeon 11-30-2022 Anion gap [Moles/Vol] 22 mmol/L above high threshold 10 - 20 MF-Qtkagef-Rk [place] Work Phone: Anion gap [Moles/Vol] 12 mmol/L 10 - 20 SS-Vivgkyq-Ut [place] Work Phone: Base excess Calc (Bld) [Moles/Vol] 2.5 mmol/L -2.0 - 3.0 HC-Vqrymts-Ux [place] Work Phone: [phone] Calcium [Mass/Vol] 9.6 mg/dL 8.6 - 10.3 MP-Uro logy-Ra [place] Work Phone: Calcium [Mass/Vol] 8.8 mg/dL 8.6 - 10.3 MP-Uro logy-Ra [place] Work Phone: Chloride [Moles/Vol] 85 mmol/L below low threshold 98 - 107 HP-Dcirgec-Mb [place] Work Phone: Chloride [Moles/Vol] 97 mmol/L below low threshold 98 - 107 MI-Lvdgbqo-Rw [place] Work Phone: CO2 (Bld) [Partial pressure] 45 mm[Hg] above high threshold 38 - 42 OC-Ypksuxw-Nd [place] Work Phone: CO2 [Moles/Vol] 24 mmol/L 21 - 32 MP-Urolog y-Ra [place] Work Phone: CO2 [Moles/Vol] 27 mmol/L 21 - 32 MP-Urolog y-Ra [place] Work Phone: Creatinine [Mass/Vol] 1.18 mg/dL above high threshold See Below UG-Mxoohan-Od [place] Work Phone: Comment on above: Reference Range: 0.5 0 - 1.05 Creatinine [Mass/Vol] 1.03 mg/dL See Below QW-Obrmrun-Ba [place] Work Phone: Comment on above: Reference Range: 0.5 0 - 1.05 Glucose [Mass/Vol] 649 mg/dL Critically high 74 - 99 M V-Yrpkpgb-Bk [place] Work Phone: Comment on above: Called- RB to Shy manriquez , 11/30/2022 15:32 Glucose [Mass/Vol] 416 mg/dL above high threshold 74 - 99 PY-Reyynsg-Es [place] Work Phone: Glucose [Mass/Vol] 426 mg/dL above high threshold 74 - 99 DV-Ztaiytb-Cn [place] Work Phone: Glucose [Mass/Vol] 382 mg/dL above high threshold 74 - 99 KQ-Fzycfnr-Jm [place] Work Phone: Glucose [Mass/Vol] 367 mg/dL above high threshold 74 - 99 RJ-Ryvfawk-Am [place] Work Phone: Glucose [Mass/Vol] 374 mg/dL above high threshold 74 - 99 JI-Tttpkvv-Dc [place] Work Phone: Glucose [Mass/Vol] 313 mg/dL above high threshold 74 - 99 HM-Jkszqsj-As [place] Work Phone: Glucose [Mass/Vol] 284 mg/dL above high threshold 74 - 99 HZ-Ukjfkir-Pa [place] Work Phone: Glucose [Mass/Vol] 293 mg/dL above high threshold 74 - 99 JU-Rglwimf-Ec [place] Work Phone: Glucose [Mass/Vol] 197 mg/dL above high threshold 74 - 99 LT-Helcfiq-Ly [place] Work Phone: HCO3 (Bld) [Moles/Vol] 27.9 mmol/L above high threshold See Below KL-Mxnnuph-Ia [place] Work Phone: Comment on above: Reference Range: 22. 0 - 26.0 Oxygen (Bld) [Partial pressure] 98 mm[Hg] above high threshold 85 - 95 RH-Xcibsau-Ct [place] Work Phone: Oxyhemoglobin (BldA) [Mass fraction] 95.5 % See Below MC-Zjpodsc-Lk [place] Work Phone: Comment on above: Reference Range: 94. 0 - 98.0 pH (Bld) 7.40 [pH] See Below NZ-Oufrkrr-Nu [place] Work Phone: Comment on above: Reference Range: 7.3 8 - 7.42 Potassium [Moles/Vol] 4.6 mmol/L 3.5 - 5.3 UO-Qqapfwj-Go [place] Work Phone: Potassium [Moles/Vol] 4.1 mmol/L 3.5 - 5.3 HG-Rmooxos-Zt sohan Work Phone: [phone] Sodium [Moles/Vol] 126 mmol/L below low threshold 136 - 145 ZW-Rajabtg-Nm [place] Work Phone: Sodium [Moles/Vol] 132 mmol/L below low threshold 136 - 145 IA-Iitqglf-Sr [place] Work Phone: Urea nitrogen [Mass/Vol] 23 mg/dL 6 - 23 VY-Nzluebu-Wc [place] Work Phone: Urea nitrogen [Mass/Vol] 19 mg/dL 6 - 23 MR-Lfwcblr-Go [place] Work Phone: [phone] Laboratory - Coagulationon 0 11-30-2022 INR Coag (PPP) [Relative time] 1.1 {INR} 0.9 - 1.1 TZ-Asfnfno-Pf [place] Work Phone: PT Coag (PPP) [Time] 12.6 s 9.8 - 13.4 MP-U rolLucho parry Work Phone: Lactate, Levelon 11-30-2022 Lactate [Moles/Vol] 1.5 mmol/L 0.4 - 2.0 MP-Ur ology-Ra parry Work Phone: Comment on above: Venipuncture immedia tely after or during the administration of Metamizole may lead to falsely low results. Testing should be performed immediately prior to Metamizole dosing. Lipase, Serumon 11-30-2022 Lipase [Catalytic activity/Vol] 18 U/L 9 - 82 MJ-Uwdvrau-Zk [place] Work Phone: Comment on above: Venipuncture immedia tely after or during the administration of Metamizole may lead to falsely low results. Testing should be performed immediately prior to Metamizole dosing. Q-fzbmhf-m-benzoquinone imine (metabolite of Acetaminophen) will generate erroneously low results in samples for patients that have taken toxic doses of acetaminophen. Magnesium, Serumon Magnesium [Mass/Vol] 1.88 mg/dL Normal 1.60 - 2.40 - Urology-Ra [employer] Work Phone: Comment on above: Reference Range: 1.6 0 - 2.40 Performed By: #### M G ####[place] [address] No Panel Informationon 11-30 Inhaled oxygen concentration 28 % ZP-Vwhqsue-Ha [employer] Work Phone: 58 {mL/min/1.73m2} Abnormal >90 -Uro logy- [employer] Work Phone: Comment on above: CALCULATIONS OF SACHIN MATED GFR ARE PERFORMED USING THE 2020 CKD-EPI STUDY REFIT EQUATION WITHOUT THE RACE VARIABLE FOR THE IDMS-TRACEABLE CREATININE METHODS.https://jasn.asnjournals.org/content//ASN .9347819506 Cannula VF-Xuuhlxf-Pz [employer] Work Phone: 68 {mL/min/1.73m2} >90 -[facility] Work Phone: Comment on above: CALCULATIONS OF SACHIN MATED GFR ARE PERFORMED USING THE 2020 CKD-EPI STUDY REFIT EQUATION WITHOUT THE RACE VARIABLE FOR THE IDMS-TRACEABLE CREATININE METHODS.https://jasn.asnjournals.org/content/early/ASN .2704278328 Order Reconciliationon 11-30 Order Reconciliation Normal [facility] PT/INRon 11-30-2022 PT Coag (PPP) [Time] 12.6 s Normal 9.8 - 13.4 [facility] Comment on above: Performed By: #### P TINR ####[place] [id number] PT, INR 1.1 Normal 0.9 - 1.[address] [facility] Comment on above: Performed By: #### P TINR ####[place] [id number] Patient Profile - Adult v2on 11-30-2022 Patient Profile - Adult v2 Normal [facility] Provider Note - ED v3on 11-06 Provider Note - ED v3 Normal [facility] Radiologyon 11-30-2022 XR Chest Single view Normal MP-U Amisha parry Work Phone: Triage - EDon 11-30-2022 Triage - ED Normal [facility] UA MICROSCOPICon 11-30-2022 BACTERIA 2+ /HPF Abnormal [facility] Comment on above: Performed By: #### U AMIC ####[place] [address] RBC None Normal 0-[address] [facility] Comment on above: Performed By: #### U AMIC ####[place] [address] SQUAMOUS EPITH. CELLS 4 /HPF Normal [facility] Comment on above: Performed By: #### U AMIC ####[place] [id number] WBC (U) [#/Vol] /uL Abnormal 0-[address] [facility] Comment on above: Performed By: #### U AMIC ####[place] [address] WBC CLUMPS OCC Normal [facility] Comment on above: Performed By: #### U AMIC ####[place] [address] URINALYSIS WITH CULTURE IF I NDICATEDon 11-30-2022 Appearance (U) HAZY Normal CLEAR [facility] Comment on above: Performed By: #### U ARFX ####[place] [address] Bilirubin Ql (U) Negative Normal NEGATIVE [facility] Comment on above: Performed By: #### U ARFX ####[address] [address] Color (U) Yellow See Below AP-Wdcaibm-Rw [place] Work Phone: Comment on above: Reference Range: STR AW,YELLOW Color (U) Yellow Normal STRAW,YELLO W [facility] Comment on above: Performed By: #### U ARFX ####[address] [address] Glucose Ql (U) >=500(3+) Abnormal NEGATIVE -Urology - ven[place] Work Phone: Glucose Ql (U) >=500(3+) Abnormal NEGATIVE [facility] Comment on above: Performed By: #### U ARFX ####[address] [address] Hemoglobin Ql (U) SMALL(1+) Abnormal NEGATIVE [facility] Comment on above: Performed By: #### U ARFX ####[address] [address] Ketones Ql (U) 20(1+) Abnormal NEGATIVE [facility] Work Phone: Ketones Ql (U) 20(1+) Abnormal NEGATIVE [facility] Comment on above: Performed By: #### U ARFX ####[address] [address] Leukocyte esterase Test strip Ql (U) LARGE(3+) Abnormal NEGATIVE JJ-Lhxivhu-Ic [place] Work Phone: Leukocyte esterase Test strip Ql (U) LARGE(3+) Abnormal NEGATIVE [facility] Comment on above: Performed By: #### U ARFX ####[address] [address] Nitrite Ql (U) Negative Normal NEGATIVE [facility] Comment on above: Performed By: #### U ARFX ####[address] [address] pH (U) 6.0 [pH] 5.0 - 8.0 SU-Rgmdgtw-Zk [place] Work Phone: pH (U) 6.0 [pH] Normal 5.0 - 8.[address] [facility] Comment on above: Performed By: #### U ARFX ####[address] [address] Protein (U) [Mass/Vol] 30(1+) Abnormal NEGATIVE LN-Lyabatg-Af [place] Work Phone: Protein Ql (U) 30(1+) Abnormal NEGATIVE [facility] Comment on above: Performed By: #### U ARFX ####[address] [address] RBC (U) [#/Vol] SMALL(1+) Abnormal NEGATIVE MP-Urolog y-Ra [place] Work Phone: Specific gravity (U) [Rel density] 1.026 1 See Below XV-Izwnttt-Eb [place] Work Phone: Comment on above: Reference Range: 1.0 05 - 1.035 Specific gravity (U) [Rel density] 1.026 Normal 1.005 - 1.[address] [facility] Comment on above: Performed By: #### U ARFX ####[address] [address] Urobilinogen (U) [Mass/Vol] mg/dL Normal 0.0 - 1.[address] [facility] Comment on above: Performed By: #### U ARFX ####[address] [address] URINALYSIS WITH CULTURE IF INDICATED Negative NEGATIVE MP-Urology- Ra [place] Work Phone: URINALYSIS WITH CULTURE IF INDICATED <2.0 0.0 - 1.9 MP-Urology- Ra [place] Work Phone: URINALYSIS WITH CULTURE IF INDICATED HAZY CLEAR MP-Urology- Ra [place] Work Phone: URINE CULTURE,BACTERIALon URINE CULTURE,BACTERIAL Normal [facility] Comment on above: Performed By: #### U RINC ####[id number] [place] [address] Urinalysis, Microscopicon Urinalysis, Microscopic 2+ Abnormal ZH-Iqrnlmg-Wb [place] Work Phone: Urinalysis, Microscopic 4 {/HPF} GI-Bznrwse-Fo [place] Work Phone: [phone] Urinalysis, Microscopic None 0-5 ZS-Pglgset-Ou [place] Work Phone: [phone] Urinalysis, Microscopic OCC BY-Aeioduc-Xc [place] Work Phone: [phone] Urinalysis, Microscopic >182 Abnormal 0-5 XG-Qxnqokl-Es [place] Work Phone: Urine Teston 11-30 HCG ( test) Ql (U) Negative Negative VF-Niwdjvj-Ih [place] Work Phone: CALCULI [STONE] ANALYSISon 0 11-22-2022 CALCULI COMPOSITION See Note Normal [facility] Comment on above: Result Comment: Calc michela composed primarily of calcium oxalate monohydrate. INTERPRETIVE INFORMATION: Calculi (Stone) analysis Calculi are the products of physiological processes that yield crystalline compounds in a matrix of biological compounds and blood. Matrix components are not reported. The clinically significant crystalline components identified in calculi specimens are reported. Gross description may not be consistent with composition determined by FTIR analysis. Performed By: [employer] [place] [address] Marketing Administrative Assistant: Satish Angel MD, PhD Performed By: #### C ALCU #### [employer] [address] [place] [address] DESCRIPTION See Note Normal [facility] Comment on above: Result Comment: Spec imen consists of two brown calculi fragments. The total weight is 47 mg. Performed By: #### C ALCU #### [employer] [address] [place] [address] WEIGHT 47 mg Normal [facility] Comment on above: Performed By: #### C ALCU #### [address] [place] [address] Laboratory - Pathologyon Composition Nom (Stone) See Note BJ-Rvlmyof-Hk [place] Work Phone: Comment on above: Calculi composed shan teo ofcalcium oxalate monohydrate.INTERPRETIVE INFORMATION: Calculi (Stone) analysisCalculi are the products of physiological processes that yield crystalline compounds in a matrix of biological compounds and blood. Matrix components are not reported. The clinically significant crystalline components identified in calculi specimens are reported. Gross description may not be consistent with composition determined by FTIR analysis.Performed By: [employer] [place] [id number] Director: Satish Angel MD, PhD Laboratory - Specimen inform ation 11-18-2022 Appearance (Stone) See Note [employer] log[employer]Peixe Urbano Work Phone: Comment on above: Specimen consists of two brown calculi fragments.The total weight is 47 mg. Specimen weight (Unsp spec) 47 mg CS-Adjkijr-Te [place] Work Phone: BASIC METABOLIC PANELon 11-05 Anion gap [Moles/Vol] 9 mmol/L Low 10 - [address] [facility] Comment on above: Performed By: #### B MP ####[address] [address] Calcium [Mass/Vol] 7.8 mg/dL Low 8.6 - 10.3 [facility] Comment on above: Performed By: #### B MP ####[address] [address] Chloride [Moles/Vol] 100 mmol/L Normal 98 - 107 [facility] Comment on above: Performed By: #### B MP ####[address] [address] Creatinine [Mass/Vol] 1.43 mg/dL High 0.50 - 1.[address] [facility] Comment on above: Performed By: #### B MP ####[address] [address] GFR/1.73 sq M.predicted among non-blacks MDRD (S/P/Bld) [Vol rate/Area] 46 mL/min/{1.73_m2} Abnormal >[address] [facility] Comment on above: Result Comment: CALC ULATIONS OF ESTIMATED GFR ARE PERFORMED USING THE 2020 CKD-EPI STUDY REFIT EQUATION WITHOUT THE RACE VARIABLE FOR THE IDMS-TRACEABLE CREATININE METHODS.https://jasn.asnjournals.org/content//ASN .7835017400 Performed By: #### B MP ####[address] [address] Glucose [Mass/Vol] 62 mg/dL Low 74 - 99 [facility] Comment on above: Performed By: #### B MP ####[address] [address] HCO3 (Bld) [Moles/Vol] 30 mmol/L Normal 21 - [address] [facility] Comment on above: Performed By: #### B MP ####[address] [address] Potassium [Moles/Vol] 4.0 mmol/L Normal 3.5 - 5.[address] [facility] Comment on above: Performed By: #### B MP ####[address] [address] Sodium [Moles/Vol] 135 mmol/L Low 136 - 145 [facility] Comment on above: Performed By: #### B MP ####[address] [address] Urea nitrogen [Mass/Vol] 12 mg/dL Normal 6 - [address] [facility] Comment on above: Performed By: #### B MP ####[address] [address] CBCon 11-16-2022 Erythrocyte distribution width (RBC) [Ratio] 14.3 % Normal 11.5 - 14.[address] [facility] Comment on above: Performed By: #### C BC ####[address] [address] Hematocrit (Bld) [Volume fraction] 27.7 % Low 36.0 - 46.[address] [facility] Comment on above: Performed By: #### C BC ####[address] [address] Hemoglobin (Bld) [Mass/Vol] 8.8 g/dL Low 12.0 - 16.[address] [facility] Comment on above: Performed By: #### C BC ####[address] [address] MCHC (RBC) [Mass/Vol] 31.8 g/dL Low 32.0 - 36.[address] [facility] Comment on above: Performed By: #### C BC ####[address] [address] MCV (RBC) [Entitic vol] 93 fL Normal 80 - [address] [facility] Comment on above: Performed By: #### C BC ####[address] [address] Platelets (Bld) [#/Vol] 416 10*3/uL Normal 150 - [address] [facility] Comment on above: Performed By: #### C BC ####[address] [address] RBC 2.99 x10E12/L Low 4.00 - 5.[address] [facility] Comment on above: Performed By: #### C BC ####[address] [address] WBC (Bld) [#/Vol] 10.5 10*3/uL Normal 4.4 - 11.3 [facility] Comment on above: Performed By: #### C BC ####[address] [address] Daily Progress Note-Nephrolo gyon 11-16-2022 Daily Progress Note-Nephrology Normal [facility] Discharge Hyziwfl5ur 023 Discharge Profile2 Normal [facility] GLUCOSE-[facility] 11-16-2022 Glucose [Mass/Vol] 97 mg/dL Normal 74 - 99 [facility] Comment on above: Performed By: #### G MAURA ####[address] [address] Glucose [Mass/Vol] 96 mg/dL Normal 74 - 99 [facility] Comment on above: Performed By: #### G MAURA ####[facility] [place] [address] Laboratory - Chemistry and C hemistry - challengeon 11-16-2022 Anion gap [Moles/Vol] 9 mmol/L below low threshold 10 - 20 HJ-Gwatepd-Bm [place] Work Phone: [phone] Calcium [Mass/Vol] 7.8 mg/dL below low threshold 8.6 - 10.3 CK-Jpnfuqc-Gf [place] Work Phone: [phone] Chloride [Moles/Vol] 100 mmol/L 98 - 107 MP-U rology-As [place] Work Phone: CO2 [Moles/Vol] 30 mmol/L 21 - 32 MP-Urolog y-As [place] Work Phone: Creatinine [Mass/Vol] 1.43 mg/dL above high threshold See Below WO-Kfzdtzs-Ea [place] Work Phone: Comment on above: Reference Range: 0.5 0 - 1.05 Glucose [Mass/Vol] 62 mg/dL below low threshold 74 - 99 GS-Umaogfk-Dd [place] Work Phone: Glucose [Mass/Vol] 97 mg/dL 74 - 99 MP-Uro logy-As [place] Work Phone: Glucose [Mass/Vol] 96 mg/dL 74 - 99 MP-Uro logy-As [place] Work Phone: Potassium [Moles/Vol] 4.0 mmol/L 3.5 - 5.3 YR-Xekblno-Ze [place] Work Phone: [phone] Sodium [Moles/Vol] 135 mmol/L below low threshold 136 - 145 IZ-Hzkotjf-Be [place] Work Phone: [phone] Urea nitrogen [Mass/Vol] 12 mg/dL 6 - 23 MB-Mjlzezj-Dg [place] Work Phone: [phone] Laboratory - Hematology and Cell countson 11-16-2022 Erythrocyte distribution width (RBC) [Ratio] 14.3 % See Below FW-Nfdrqam-Wg [place] Work Phone: Comment on above: Reference Range: 11. 5 - 14.5 Hematocrit (Bld) [Volume fraction] 27.7 % below low threshold See Below RP-Hqxfdnv-Ks [place] Work Phone: Comment on above: Reference Range: 36. 0 - 46.0 Hemoglobin (Bld) [Mass/Vol] 8.8 g/dL below low threshold See Below QF-Dylmfqb-Ut [place] Work Phone: Comment on above: Reference Range: 12. 0 - 16.0 MCHC (RBC) [Mass/Vol] 31.8 g/dL below low threshold See Below KO-Oriwcol-Ob [place] Work Phone: Comment on above: Reference Range: 32. 0 - 36.0 MCV (RBC) [Entitic vol] 93 fL 80 - 100 FZ-Thymbbe-Cc [place] Work Phone: Platelets (Bld) [#/Vol] 416 10*3/uL 150 - 450 HQ-Ecxikdn-Ij [place] Work Phone: RBC (Bld) [#/Vol] 2.99 {x10E12/L} below low threshold See Below IR-Yilbpxj-Fs [place] Work Phone: Comment on above: Reference Range: 4.0 0 - 5.20 WBC (Bld) [#/Vol] 10.5 10*3/uL 4.4 - 11.3 MP-Ur ology-As [place] Work Phone: No Panel Informationon 11-16 46 {mL/min/1.73m2} Abnormal >90 MP-Uro logy-As [place] Work Phone: Comment on above: CALCULATIONS OF SACHIN MATED GFR ARE PERFORMED USING THE 2020 CKD-EPI STUDY REFIT EQUATION WITHOUT THE RACE VARIABLE FOR THE IDMS-TRACEABLE CREATININE METHODS.https://jasn.asnjournals.org/content//ASN .3006270546 Order Reconciliationon 11-16 Order Reconciliation Normal [facility] BASIC METABOLIC PANELon 11-05 Anion gap [Moles/Vol] 9 mmol/L Low 10 - [address] [facility] Comment on above: Performed By: #### B MP ####[address] [address] Calcium [Mass/Vol] 8.0 mg/dL Low 8.6 - 10.3 [facility] Comment on above: Performed By: #### B MP ####[address] [address] Chloride [Moles/Vol] 104 mmol/L Normal 98 - 107 [facility] Comment on above: Performed By: #### B MP ####[address] [address] Creatinine [Mass/Vol] 1.59 mg/dL High 0.50 - 1.[address] [facility] Comment on above: Performed By: #### B MP ####[address] [address] GFR/1.73 sq M.predicted among non-blacks MDRD (S/P/Bld) [Vol rate/Area] 41 mL/min/{1.73_m2} Abnormal >[address] [facility] Comment on above: Result Comment: CALC ULATIONS OF ESTIMATED GFR ARE PERFORMED USING THE 2020 CKD-EPI STUDY REFIT EQUATION WITHOUT THE RACE VARIABLE FOR THE IDMS-TRACEABLE CREATININE METHODS.https://jasn.asnjournals.org/content/early/ASN .1658608786 Performed By: #### B MP ####[address] [address] Glucose [Mass/Vol] 110 mg/dL High 74 - 99 [facility] Comment on above: Performed By: #### B MP ####[address] [address] HCO3 (Bld) [Moles/Vol] 30 mmol/L Normal 21 - [address] [facility] Comment on above: Performed By: #### B MP ####[address] [address] Potassium [Moles/Vol] 4.1 mmol/L Normal 3.5 - 5.[address] [facility] Comment on above: Performed By: #### B MP ####[address] [address] Sodium [Moles/Vol] 139 mmol/L Normal 136 - 145 [facility] Comment on above: Performed By: #### B MP ####[address] [address] Urea nitrogen [Mass/Vol] 15 mg/dL Normal 6 - [address] [facility] Comment on above: Performed By: #### B MP ####[address] [address] CBCon 11-15-2022 Erythrocyte distribution width (RBC) [Ratio] 14.3 % Normal 11.5 - 14.[address] [facility] Comment on above: Performed By: #### C BC ####[address] [address] Hematocrit (Bld) [Volume fraction] 27.7 % Low 36.0 - 46.[address] [facility] Comment on above: Performed By: #### C BC ####[address] [address] Hemoglobin (Bld) [Mass/Vol] 8.9 g/dL Low 12.0 - 16.[address] [facility] Comment on above: Performed By: #### C BC ####[address] [address] MCHC (RBC) [Mass/Vol] 32.1 g/dL Normal 32.0 - 36.[address] [facility] Comment on above: Performed By: #### C BC ####[address] [address] MCV (RBC) [Entitic vol] 92 fL Normal 80 - [address] [facility] Comment on above: Performed By: #### C BC ####[address] [address] Platelets (Bld) [#/Vol] 367 10*3/uL Normal 150 - [address] [facility] Comment on above: Performed By: #### C BC ####[address] [address] RBC 3.02 x10E12/L Low 4.00 - 5.[address] [facility] Comment on above: Performed By: #### C BC ####[place] [address] WBC (Bld) [#/Vol] 9.7 10*3/uL Normal 4.4 - 11.3 [facility] Comment on above: Performed By: #### C BC ####[place] [id number] Daily Progress Note-Medicine on 11-15-2022 Daily Progress Note-Medicine Normal [facility] Daily Progress Note-Nephrolo gyon 11-15-2022 Daily Progress Note-Nephrology Normal [facility] GLUCOSE-POCTon 11-15-2022 Glucose [Mass/Vol] 88 mg/dL Normal 74 - 99 [facility] Comment on above: Performed By: #### G MAURA ####[place] [id number] Glucose [Mass/Vol] 112 mg/dL High 74 - 99 [facility] Comment on above: Performed By: #### G MAURA ####[place] [id number] Glucose [Mass/Vol] 139 mg/dL High 74 - 99 [facility] Comment on above: Performed By: #### G MAURA ####[place] [id number] Laboratory - Chemistry and C hemistry - challengeon 11-15-2022 Anion gap [Moles/Vol] 9 mmol/L below low threshold 10 - 20 TJ-Kqrwvxf-Dp [place] Work Phone: Calcium [Mass/Vol] 8.0 mg/dL below low threshold 8.6 - 10.3 WN-Eadpkec-Wq [place] Work Phone: Chloride [Moles/Vol] 104 mmol/L 98 - 107 MP-U rology-As [place] Work Phone: CO2 [Moles/Vol] 30 mmol/L 21 - 32 MP-Urolog y-As [place] Work Phone: Creatinine [Mass/Vol] 1.59 mg/dL above high threshold See Below RK-Wltrlos-Ca [place] Work Phone: Comment on above: Reference Range: 0.5 0 - 1.05 Glucose [Mass/Vol] 110 mg/dL above high threshold 74 - 99 XV-Khsuftt-Ig [place] Work Phone: Glucose [Mass/Vol] 88 mg/dL 74 - 99 MP-Uro logy-As [place] Work Phone: Glucose [Mass/Vol] 112 mg/dL above high threshold 74 - 99 YJ-Qyqfgij-Ur [place] Work Phone: Glucose [Mass/Vol] 139 mg/dL above high threshold 74 - 99 IU-Avrrpck-Sg [place] Work Phone: Potassium [Moles/Vol] 4.1 mmol/L 3.5 - 5.3 GP-Hkpkbui-Br [place] Work Phone: Sodium [Moles/Vol] 139 mmol/L 136 - 145 MP-Uro logy-As [place] Work Phone: Urea nitrogen [Mass/Vol] 15 mg/dL 6 - 23 JO-Ubisrgz-[place] Work Phone: Laboratory - Hematology and Cell countson 11-15-2022 Erythrocyte distribution width (RBC) [Ratio] 14.3 % See Below VM-Ynvgpfc-[place]e [place] Work Phone: Comment on above: Reference Range: 11. 5 - 14.5 Hematocrit (Bld) [Volume fraction] 27.7 % below low threshold See Below XR-Sywbdim-Sq [place] Work Phone: Comment on above: Reference Range: 36. 0 - 46.0 Hemoglobin (Bld) [Mass/Vol] 8.9 g/dL below low threshold See Below YX-Bewzlen-Ct [place] Work Phone: Comment on above: Reference Range: 12. 0 - 16.0 MCHC (RBC) [Mass/Vol] 32.1 g/dL See Below XJ-Gqagdoo-Nt [place] Work Phone: Comment on above: Reference Range: 32. 0 - 36.0 MCV (RBC) [Entitic vol] 92 fL 80 - 100 NS-Zgdeqmt-Ob [place] Work Phone: [phone] Platelets (Bld) [#/Vol] 367 10*3/uL 150 - 450 GJ-Eygxmjn-[place]k [place] Work Phone: [phone] RBC (Bld) [#/Vol] 3.02 {x10E12/L} below low threshold See Below LR-Qnwotdl-Dl [place] Work Phone: Comment on above: Reference Range: 4.0 0 - 5.20 WBC (Bld) [#/Vol] 9.7 10*3/uL 4.4 - 11.3 MP-Uro logy-[place] Work Phone: No Panel Informationon 11-15 41 {mL/min/1.73m2} Abnormal >90 MP-Uro logy-[place] Work Phone: Comment on above: CALCULATIONS OF SACHIN MATED GFR ARE PERFORMED USING THE 2020 CKD-EPI STUDY REFIT EQUATION WITHOUT THE RACE VARIABLE FOR THE IDMS-TRACEABLE CREATININE METHODS.https://jasn.asnjournals.org/content//ASN .8374266784 BASIC METABOLIC PANELon 11-05 Anion gap [Moles/Vol] 11 mmol/L Normal 10 - [address] [facility] Comment on above: Performed By: #### B MP ####[address] [address] Calcium [Mass/Vol] 8.0 mg/dL Low 8.6 - 10.3 [facility] Comment on above: Performed By: #### B MP ####[id number] [place] [address] Chloride [Moles/Vol] 104 mmol/L Normal 98 - 107 [facility] Comment on above: Performed By: #### B MP ####[address] [address] Creatinine [Mass/Vol] 1.88 mg/dL High 0.50 - 1.[address] [facility] Comment on above: Result Comment: Conf irmed by repeat analysis Performed By: #### B MP ####[address] [address] GFR/1.73 sq M.predicted among non-blacks MDRD (S/P/Bld) [Vol rate/Area] 33 mL/min/{1.73_m2} Abnormal >[address] [facility] Comment on above: Result Comment: CALC ULATIONS OF ESTIMATED GFR ARE PERFORMED USING THE 2020 CKD-EPI STUDY REFIT EQUATION WITHOUT THE RACE VARIABLE FOR THE IDMS-TRACEABLE CREATININE METHODS.https://jasn.asnjournals.org/content//ASN .6075620019 Performed By: #### B MP ####[address] [address] Glucose [Mass/Vol] 137 mg/dL High 74 - 99 [facility] Comment on above: Performed By: #### B MP ####[address] [address] HCO3 (Bld) [Moles/Vol] 26 mmol/L Normal 21 - [address] [facility] Comment on above: Performed By: #### B MP ####[address] [address] Potassium [Moles/Vol] 4.1 mmol/L Normal 3.5 - 5.[address] [facility] Comment on above: Performed By: #### B MP ####[address] [address] Sodium [Moles/Vol] 137 mmol/L Normal 136 - 145 [facility] Comment on above: Performed By: #### B MP ####[address] [address] Urea nitrogen [Mass/Vol] 23 mg/dL Normal 6 - [address] [facility] Comment on above: Performed By: #### B MP ####[address] [address] CBCon 11-14-2022 Erythrocyte distribution width (RBC) [Ratio] 13.9 % Normal 11.5 - 14.[address] [facility] Comment on above: Performed By: #### C BC ####[address] [address] Hematocrit (Bld) [Volume fraction] 27.9 % Low 36.0 - 46.[address] [facility] Comment on above: Performed By: #### C BC ####[address] [address] Hemoglobin (Bld) [Mass/Vol] 9.2 g/dL Low 12.0 - 16.[address] [facility] Comment on above: Performed By: #### C BC ####[address] [address] MCHC (RBC) [Mass/Vol] 33.0 g/dL Normal 32.0 - 36.[address] [facility] Comment on above: Performed By: #### C BC ####[address] [address] MCV (RBC) [Entitic vol] 91 fL Normal 80 - [address] [facility] Comment on above: Performed By: #### C BC ####[address] [address] Platelets (Bld) [#/Vol] 349 10*3/uL Normal 150 - [address] [facility] Comment on above: Performed By: #### C BC ####[address] [address] RBC 3.07 x10E12/L Low 4.00 - 5.[address] [facility] Comment on above: Performed By: #### C BC ####[address] [address] WBC (Bld) [#/Vol] 10.0 10*3/uL Normal 4.4 - 11.3 [facility] Comment on above: Performed By: #### C BC ####[address] [address] Daily Progress Note-General Internal Medicineon 11-14-2022 Daily Progress Note-General Internal Medicine Normal [facility] Daily Progress Note-Nephrolo gyon 11-14-2022 Daily Progress Note-Nephrology Normal [facility] Daily Progress Note-Urologyo n 11-14-2022 Daily Progress Note-Urology Normal [facility] GLUCOSE-POCTon 11-14-2022 Glucose [Mass/Vol] 128 mg/dL High 74 - 99 [facility] Comment on above: Performed By: #### G MAURA ####[address] [place] [address] Glucose [Mass/Vol] 118 mg/dL High 74 - 99 [facility] Comment on above: Performed By: #### G MAURA ####[address] [place] [address] Glucose [Mass/Vol] 105 mg/dL High 74 - 99 [facility] Comment on above: Performed By: #### G MAURA ####[address] [place] [address] Glucose [Mass/Vol] 184 mg/dL High 74 - 99 [facility] Comment on above: Performed By: #### G MAURA ####[address] [address] Laboratory - Chemistry and C hemistry - challengeon 11-14-2022 Anion gap [Moles/Vol] 11 mmol/L 10 - 20 CY-Pykohks-[place] Work Phone: Calcium [Mass/Vol] 8.0 mg/dL below low threshold 8.6 - 10.3 UP-Zcqjbjy-Qm [place] Work Phone: Chloride [Moles/Vol] 104 mmol/L 98 - 107 MP-U rology-[place] Work Phone: CO2 [Moles/Vol] 26 mmol/L 21 - 32 MP-Urolog y-[place] Work Phone: Creatinine [Mass/Vol] 1.88 mg/dL above high threshold See Below FI-Kyouxhu-Ci [place] Work Phone: Comment on above: Reference Range: 0.5 0 - 1.05Confirmed by repeat analysis Glucose [Mass/Vol] 137 mg/dL above high threshold 74 - 99 LP-Ulahtdu-Lp [place] Work Phone: Glucose [Mass/Vol] 128 mg/dL above high threshold 74 - 99 WM-Laxivwo-Pl [place] Work Phone: Glucose [Mass/Vol] 118 mg/dL above high threshold 74 - 99 MH-Yzgpoyt-Gx [place] Work Phone: Glucose [Mass/Vol] 105 mg/dL above high threshold 74 - 99 YV-Pfytfwq-Kc [place] Work Phone: Glucose [Mass/Vol] 184 mg/dL above high threshold 74 - 99 MN-Ipnuyse-Nj [place] Work Phone: Potassium [Moles/Vol] 4.1 mmol/L 3.5 - 5.3 YM-Fapjzcu-Zg [place] Work Phone: Sodium [Moles/Vol] 137 mmol/L 136 - 145 MP-Uro logy-[place] Work Phone: Urea nitrogen [Mass/Vol] 23 mg/dL 6 - 23 FT-Vhuzwgc-Ea [place] Work Phone: Laboratory - Hematology and Cell countson 11-14-2022 Erythrocyte distribution width (RBC) [Ratio] 13.9 % See Below UX-Hyvufgf-Qb [place] Work Phone: Comment on above: Reference Range: 11. 5 - 14.5 Hematocrit (Bld) [Volume fraction] 27.9 % below low threshold See Below ML-Cmofscb-Zf [place] Work Phone: Comment on above: Reference Range: 36. 0 - 46.0 Hemoglobin (Bld) [Mass/Vol] 9.2 g/dL below low threshold See Below QJ-Ykiwsln-Vx [place] Work Phone: Comment on above: Reference Range: 12. 0 - 16.0 MCHC (RBC) [Mass/Vol] 33.0 g/dL See Below SK-Vrkfwsk-Pc [place] Work Phone: Comment on above: Reference Range: 32. 0 - 36.0 MCV (RBC) [Entitic vol] 91 fL 80 - 100 CZ-Urhzaar-Ce [place] Work Phone: Platelets (Bld) [#/Vol] 349 10*3/uL 150 - 450 HX-Bhbzxjh-[place] Work Phone: [phone] RBC (Bld) [#/Vol] 3.07 {x10E12/L} below low threshold See Below DH-Ydavxja-Yw [place] Work Phone: [phone] Comment on above: Reference Range: 4.0 0 - 5.20 WBC (Bld) [#/Vol] 10.0 10*3/uL 4.4 - 11.3 MP-Ur ology-[place] Work Phone: [phone] Panel Informationon 11-14 33 {mL/min/1.73m2} Abnormal >90 MP-Uro logy-[place] Work Phone: [phone] Comment on above: CALCULATIONS OF SACHIN MATED GFR ARE PERFORMED USING THE 2020 CKD-EPI STUDY REFIT EQUATION WITHOUT THE RACE VARIABLE FOR THE IDMS-TRACEABLE CREATININE METHODS.https://jasn.asnjournals.org/content/early//ASN .2739838965 IO-Prrztgx-Mz [place] Work Phone: Preop Checkliston 11-14-[address] [facility] Surgical Pathology Depar tmenton 11-14-2022 [facility] Surgical Pathology Department Name JADA GRANADOS Pathologist: MARIAH VERA DO Date of Procedure: 11/14/2022 Date Received: 11/17/2022 Date Reported 11/18/2022 Submitting Physician: CHRISTINA MCNALLY MD, MPH [place] [facility] [place] To[place]Referring/Attending: STEVE WALL DO Other External # FINAL DIAGNOSIS A. RIGHT URETERAL STONE: - CALCULI DESCRIBED BELOW, GROSS DIAGNOSIS ONLY - SEE SEPARATE STONE ANALYSIS REPORT Electronically Signed Out By MARIAH VERA DO/MEK By the signature on this report, the individual or group listed as making the Final Interpretation/Diagnosis certifies that they have reviewed this case. Diagnostic interpretation performed at [facility] [address] [place] [address] Clinical History: Physician Contact Number: [phone] Fixative (A): Fresh Clinical Diagnosis History JADA GRANADOS is a 42 year old Female Please note, the patient was recently admitted here October 14 and discharged October 17 for UTI secondary to ESBL E. coli and uncontrolled type 2 diabetes. This is a 42-year-old white female whose past medical history is significant for: 1. Type 2 diabetes on insulin 2. Hypertension 3. Hyperlipidemia 4. Depression/anxiety 5. 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 Obstructive sleep apnea with 2 L oxygen at bedtime only 7. ESBL E. coli UTI during her last hospitalization in October Patient was at [facility] emergency room last /Thursday. She tested positive for UTI and was sent home with some antiemetic and Keflex. Her primary care doctor got her test results yesterday evening and told her to go to the ER to be evaluated as the Keflex would not cover the bacteria that he saw on her culture. She does not report right-sided flank pain with fevers and sweats but no urinary complaints. She does have some nausea and some emesis. No other complaints. In the ER her blood pressure is 168/88 with a pulse of 105 and a respiratory rate of 18. She satting 93% on room air and she has a Tmax of 37.9. Her white count is normal at 8.0 with no shift and her H AND H is 11.7 and 34.2. Platelets are 210,000. She is negative for COVID-19. Her CMP is remarkable for glucose of 327, sodium 130, creatinine 1.25 and the rest is unremarkable. Urinalysis shows 3+ protein, 3+ glucose, 2+ blood, 1+ leukocyte esterase and greater than 182 WBCs and 37 RBCs and 1+ bacteria. CT of the abdomen and pelvis with IV contrast shows suspected right-sided pyelonephritis, slight peribronchial nodularity and consolidation within the right middle and right lower lobe likely chronic aspiration versus atypical infection, trace right pleural effusion and mild hepatic steatosis. In the ER I cannot see if a urine culture was sent or blood cultures. She did receive a Specimens Submitted As: A: RIGHT URETERAL STONE Gross Description: Received fresh, labeled with the patient's name and hospital number and right ureter stone , are 2 calculi aggregating to 0.9 x 0.3 x 0.2 cm. Tissue is not received with the specimen. A photograph has been taken. The stones are sent for stone analysis. The specimen is for gross examination only. RMP rmp/11/17/2022 [facility] Department of Pathology [id number] [place] [id number] Normal [facility] Comment on above: Performed By: #### U HCS #### [facility] Surgical Pathology Department [id number] [place] [address] CBCon 11-13-2022 Erythrocyte distribution width (RBC) [Ratio] 13.7 % Normal 11.5 - 14.[address] [facility] Comment on above: Performed By: #### C BC ####[address] [address] Hematocrit (Bld) [Volume fraction] 30.3 % Low 36.0 - 46.[address] [facility] Comment on above: Performed By: #### C BC ####[address] [address] Hemoglobin (Bld) [Mass/Vol] 10.0 g/dL Low 12.0 - 16.[address] [facility] Comment on above: Performed By: #### C BC ####[address] [address] MCHC (RBC) [Mass/Vol] 33.0 g/dL Normal 32.0 - 36.[address] [facility] Comment on above: Performed By: #### C BC ####[address] [address] MCV (RBC) [Entitic vol] 90 fL Normal 80 - [address] [facility] Comment on above: Performed By: #### C BC ####[address] [address] Platelets (Bld) [#/Vol] 277 10*3/uL Normal 150 - [address] [facility] Comment on above: Performed By: #### C BC ####[address] [address] RBC 3.38 x10E12/L Low 4.00 - 5.[address] [facility] Comment on above: Performed By: #### C BC ####[address] [address] WBC (Bld) [#/Vol] 9.2 10*3/uL Normal 4.4 - 11.3 [facility] Comment on above: Performed By: #### C BC ####[address] [address] COMPREHENSIVE PANELon 2022 Albumin [Mass/Vol] 2.6 g/dL Low 3.4 - 5.0 [facility] Comment on above: Performed By: #### C MP ####[address] [address] ALP [Catalytic activity/Vol] 85 U/L Normal 33 - [address] [facility] Comment on above: Performed By: #### C MP ####[address] [address] ALT [Catalytic activity/Vol] 24 U/L Normal 7 - [address] [facility] Comment on above: Result Comment: Bridget ents treated with Sulfasalazine may generate falsely decreased results for ALT. Performed By: #### C MP ####[address] [address] Anion gap [Moles/Vol] 13 mmol/L Normal 10 - [address] [facility] Comment on above: Performed By: #### C MP ####[address] [address] AST [Catalytic activity/Vol] 13 U/L Normal 9 - [address] [facility] Comment on above: Performed By: #### C MP ####[address] [address] Bilirubin [Mass/Vol] 0.7 mg/dL Normal 0.0 - 1.2 [facility] Comment on above: Performed By: #### C MP ####[address] [address] Calcium [Mass/Vol] 7.8 mg/dL Low 8.6 - 10.3 [facility] Comment on above: Performed By: #### C MP ####[address] [address] Chloride [Moles/Vol] 97 mmol/L Low 98 - 107 [facility] Comment on above: Performed By: #### C MP ####[address] [address] Creatinine [Mass/Vol] 2.84 mg/dL High 0.50 - 1.[address] [facility] Comment on above: Performed By: #### C MP ####[address] [address] GFR/1.73 sq M.predicted among non-blacks MDRD (S/P/Bld) [Vol rate/Area] 20 mL/min/{1.73_m2} Abnormal >[address] [facility] Comment on above: Result Comment: CALC ULATIONS OF ESTIMATED GFR ARE PERFORMED USING THE 2020 CKD-EPI STUDY REFIT EQUATION WITHOUT THE RACE VARIABLE FOR THE IDMS-TRACEABLE CREATININE METHODS.https://jasn.asnjournals.org/content//ASN .9905646499 Performed By: #### C MP ####[address] [address] Glucose [Mass/Vol] 198 mg/dL High 74 - 99 [facility] Comment on above: Performed By: #### C MP ####[address] [address] HCO3 (Bld) [Moles/Vol] 26 mmol/L Normal 21 - [address] [facility] Comment on above: Performed By: #### C MP ####[address] [address] Potassium [Moles/Vol] 3.7 mmol/L Normal 3.5 - 5.[address] [facility] Comment on above: Performed By: #### C MP ####[address] [address] Protein [Mass/Vol] 5.7 g/dL Low 6.4 - 8.2 [facility] Comment on above: Performed By: #### C MP ####[address] [address] Sodium [Moles/Vol] 132 mmol/L Low 136 - 145 [facility] Comment on above: Performed By: #### C MP ####[address] [address] Urea nitrogen [Mass/Vol] 38 mg/dL High 6 - [address] [facility] Comment on above: Performed By: #### C MP ####[id number] Daily Progress Note-General Internal Medicineon 11-13-2022 Daily Progress Note-General Internal Medicine Normal [facility] Daily Progress Note-Nephrolo gyon 11-13-2022 Daily Progress Note-Nephrology Normal [facility] Daily Progress Note-Urologyo n 11-13-2022 Daily Progress Note-Urology Normal [facility] GLUCOSE-POCTon 11-13-2022 Glucose [Mass/Vol] 172 mg/dL High 74 - 99 [facility] Comment on above: Result Comment: RN/M D NOTIFIED Performed By: #### G MAURA ####[id number] Glucose [Mass/Vol] 197 mg/dL High 74 - 99 [facility] Comment on above: Result Comment: RN/M D NOTIFIED Performed By: #### G MAURA ####[address] [address] Glucose [Mass/Vol] 204 mg/dL High 74 - 99 [facility] Comment on above: Result Comment: RN/M D NOTIFIED Performed By: #### G MAURA ####[address] [address] Glucose [Mass/Vol] 276 mg/dL High 74 - 99 [facility] Comment on above: Performed By: #### G MAURA ####[address] [address] Laboratory - Chemistry and C hemistry - challengeon 11-13-2022 Albumin BCP dye [Mass/Vol] 2.6 g/dL below low threshold 3.4 - 5.0 VH-Krmkscm-[place] Work Phone: ALP [Catalytic activity/Vol] 85 U/L 33 - 110 IG-Eyrqisp-Jt [place] Work Phone: ALT With P-5'-P [Catalytic activity/Vol] 24 U/L 7 - 45 SJ-Vwtterg-Xj [place] Work Phone: Comment on above: Patients treated wit h Sulfasalazine may generate falsely decreased results for ALT. Anion gap [Moles/Vol] 13 mmol/L 10 - 20 BV-Yjsaulk-Zn [place] Work Phone: AST With P-5'-P [Catalytic activity/Vol] 13 U/L 9 - 39 RQ-Oczxqnh-Iv [place] Work Phone: Bilirubin [Mass/Vol] 0.7 mg/dL 0.0 - 1.2 MP-U rology-[place] Work Phone: Calcium [Mass/Vol] 7.8 mg/dL below low threshold 8.6 - 10.3 OK-Zxnqwtf-Vt [place] Work Phone: Chloride [Moles/Vol] 97 mmol/L below low threshold 98 - 107 CH-Nmacdnc-Jb [place] Work Phone: CO2 [Moles/Vol] 26 mmol/L 21 - 32 MP-Urolog y-[place] Work Phone: Creatinine [Mass/Vol] 2.84 mg/dL above high threshold See Below CG-Mswerrv-Gr [place] Work Phone: Comment on above: Reference Range: 0.5 0 - 1.05 Glucose [Mass/Vol] 198 mg/dL above high threshold 74 - 99 UB-Voywijc-Vj [place] Work Phone: Glucose [Mass/Vol] 172 mg/dL above high threshold 74 - 99 HH-Oayynib-Or [place] Work Phone: Comment on above: RN/MD NOTIFIED Glucose [Mass/Vol] 197 mg/dL above high threshold 74 - 99 ZV-Leiocvd-Rh [place] Work Phone: Comment on above: RN/MD NOTIFIED Glucose [Mass/Vol] 204 mg/dL above high threshold 74 - 99 HX-Nzcxjuq-Ly [place] Work Phone: Comment on above: RN/MD NOTIFIED Glucose [Mass/Vol] 276 mg/dL above high threshold 74 - 99 HM-Tscocnx-Ia [place] Work Phone: Potassium [Moles/Vol] 3.7 mmol/L 3.5 - 5.3 YT-Gqbnnyi-Cd [place] Work Phone: Protein [Mass/Vol] 5.7 g/dL below low threshold 6.4 - 8.2 AZ-Tzrfjtv-Wq [place] Work Phone: Sodium [Moles/Vol] 132 mmol/L below low threshold 136 - 145 SD-Kqybrdb-Og [place] Work Phone: Urea nitrogen [Mass/Vol] 38 mg/dL above high threshold 6 - 23 BL-Rnvknbx-Wq [place] Work Phone: Laboratory - Hematology and Cell countson 11-13-2022 Erythrocyte distribution width (RBC) [Ratio] 13.7 % See Below NG-Mnrsesd-Fv [place] Work Phone: Comment on above: Reference Range: 11. 5 - 14.5 Hematocrit (Bld) [Volume fraction] 30.3 % below low threshold See Below DU-Wstxxdv-Qe [place] Work Phone: Comment on above: Reference Range: 36. 0 - 46.0 Hemoglobin (Bld) [Mass/Vol] 10.0 g/dL below low threshold See Below BR-Yatjmqg-Zo [place] Work Phone: Comment on above: Reference Range: 12. 0 - 16.0 MCHC (RBC) [Mass/Vol] 33.0 g/dL See Below LJ-Cvodydn-Vm [place] Work Phone: Comment on above: Reference Range: 32. 0 - 36.0 MCV (RBC) [Entitic vol] 90 fL 80 - 100 IY-Deputbr-Jb [place] Work Phone: Platelets (Bld) [#/Vol] 277 10*3/uL 150 - 450 EU-Mxfgrql-Xw [place] Work Phone: RBC (Bld) [#/Vol] 3.38 {x10E12/L} below low threshold See Below HV-Fhgtjmp-Hq [place] Work Phone: Comment on above: Reference Range: 4.0 0 - 5.20 WBC (Bld) [#/Vol] 9.2 10*3/uL 4.4 - 11.3 MP-Uro logy-As [place] Work Phone: No Panel Informationon 11-13 20 {mL/min/1.73m2} Abnormal >90 MP-Uro logy-[place] Work Phone: Comment on above: CALCULATIONS OF SACHIN MATED GFR ARE PERFORMED USING THE 2020 CKD-EPI STUDY REFIT EQUATION WITHOUT THE RACE VARIABLE FOR THE IDMS-TRACEABLE CREATININE METHODS.https://jasn.asnjournals.org/content/early/ASN .2235103757 BASIC METABOLIC PANELon Anion gap [Moles/Vol] 14 mmol/L Normal 10 - [address] [facility] Comment on above: Performed By: #### B MP ####[address] [address] Calcium [Mass/Vol] 7.6 mg/dL Low 8.6 - 10.3 [facility] Comment on above: Performed By: #### B MP ####[address] [address] Chloride [Moles/Vol] 97 mmol/L Low 98 - 107 [facility] Comment on above: Performed By: #### B MP ####[address] [address] Creatinine [Mass/Vol] 2.59 mg/dL High 0.50 - 1.[address] [facility] Comment on above: Performed By: #### B MP ####[address] [address] GFR/1.73 sq M.predicted among non-blacks MDRD (S/P/Bld) [Vol rate/Area] 23 mL/min/{1.73_m2} Abnormal >[address] [facility] Comment on above: Result Comment: CALC ULATIONS OF ESTIMATED GFR ARE PERFORMED USING THE 2020 CKD-EPI STUDY REFIT EQUATION WITHOUT THE RACE VARIABLE FOR THE IDMS-TRACEABLE CREATININE METHODS.https://jasn.asnjournals.org/content/early/ASN .5284436845 Performed By: #### B MP ####[address] [address] Glucose [Mass/Vol] 275 mg/dL High 74 - 99 [facility] Comment on above: Performed By: #### B MP ####[address] [address] HCO3 (Bld) [Moles/Vol] 24 mmol/L Normal 21 - [address] [facility] Comment on above: Performed By: #### B MP ####[address] [address] Potassium [Moles/Vol] 4.2 mmol/L Normal 3.5 - 5.[address] [facility] Comment on above: Performed By: #### B MP ####[address] [address] Sodium [Moles/Vol] 131 mmol/L Low 136 - 145 [facility] Comment on above: Performed By: #### B MP ####[address] [address] Urea nitrogen [Mass/Vol] 35 mg/dL High 6 - [address] [facility] Comment on above: Performed By: #### B MP ####[address] [address] BLOOD CULTURE, BACTERIALon 0 11-12-2022 BLOOD CULTURE, BACTERIAL Normal [facility] Comment on above: Performed By: #### B LDC ####[id number] [place] [address] CBCon 11-12-2022 Erythrocyte distribution width (RBC) [Ratio] 13.8 % Normal 11.5 - 14.[address] [facility] Comment on above: Performed By: #### C BC ####[address] [address] Hematocrit (Bld) [Volume fraction] 29.5 % Low 36.0 - 46.[address] [facility] Comment on above: Performed By: #### C BC ####[address] [address] Hemoglobin (Bld) [Mass/Vol] 10.0 g/dL Low 12.0 - 16.[address] [facility] Comment on above: Performed By: #### C BC ####[address] [address] MCHC (RBC) [Mass/Vol] 33.9 g/dL Normal 32.0 - 36.[address] [facility] Comment on above: Performed By: #### C BC ####[address] [address] MCV (RBC) [Entitic vol] 91 fL Normal 80 - [address] [facility] Comment on above: Performed By: #### C BC ####[address] [address] Platelets (Bld) [#/Vol] 241 10*3/uL Normal 150 - [address] [facility] Comment on above: Performed By: #### C BC ####[address] [address] RBC 3.25 x10E12/L Low 4.00 - 5.[address] [facility] Comment on above: Performed By: #### C BC ####[address] [address] WBC (Bld) [#/Vol] 7.7 10*3/uL Normal 4.4 - 11.3 [facility] Comment on above: Performed By: #### C BC ####[address] [address] Consult-Nephrologyon 023 Consult-Nephrology Normal [facility] Cult, Bloodon 11-12-2022 Bacteria identified Cx Nom (Bld) DV-Mmpnepx-[place] Work Phone: Cult, Urineon 11-12-2022 Bacteria identified Cx Nom (U) IR-Cdodxmr-Oo [place] Work Phone: Daily Progress Note-General Internal Medicineon 11-12-2022 Daily Progress Note-General Internal Medicine Normal [facility] Daily Progress Note-Urologyo n 11-12-2022 Daily Progress Note-Urology Normal [facility] GLUCOSE-POCTon 11-12-2022 Glucose [Mass/Vol] 257 mg/dL High 74 - 99 [facility] Comment on above: Performed By: #### G MAURA ####[address] [address] Glucose [Mass/Vol] 259 mg/dL High 74 - 99 [facility] Comment on above: Performed By: #### G MAURA ####[address] [address] Glucose [Mass/Vol] 181 mg/dL High - [address] [place] [address] Comment on above: Performed By: #### G MAURA ####[address] [address] Glucose [Mass/Vol] 270 mg/dL High - [address] [place] [address] Comment on above: Performed By: #### G MAURA ####[address] [address] Laboratory - Chemistry and C hemistry - challengeon 11-12-2022 Anion gap [Moles/Vol] 14 mmol/L 10 - 20 LJ-Terrdzs-[facility]w [place] Work Phone: Calcium [Mass/Vol] 7.6 mg/dL below low threshold 8.6 - 10.3 HT-Ywtwpwk-Fg [place] Work Phone: Chloride [Moles/Vol] 97 mmol/L below low threshold 98 - 107 UH-Runaueh[facility]u [facility] Work Phone: CO2 [Moles/Vol] 24 mmol/L 21 - 32 MP-Urolog y-As [place] Work Phone: Creatinine [Mass/Vol] 2.59 mg/dL above high threshold See Below WV-Mhghcra-Cm [facility] Work Phone: Comment on above: Reference Range: 0.5 0 - 1.05 Glucose [Mass/Vol] 275 mg/dL above high threshold 74 - 99 CP-Ebgcqze-[place]e [place] Work Phone: Glucose [Mass/Vol] 257 mg/dL above high threshold 74 - 99 JC-Ukkjshe-Kd [place] Work Phone: Glucose [Mass/Vol] 259 mg/dL above high threshold 74 - 99 DH-Wsilbmd-Ec [place] Work Phone: Glucose [Mass/Vol] 181 mg/dL above high threshold 74 - 99 WZ-Tilrlhj-[place]o [place] Work Phone: Glucose [Mass/Vol] 270 mg/dL above high threshold 74 - 99 AO-Aggjthy-Yx [place] Work Phone: Potassium [Moles/Vol] 4.2 mmol/L 3.5 - 5.3 BV-Qvsqowt-Qk [place] Work Phone: Sodium [Moles/Vol] 131 mmol/L below low threshold 136 - 145 SJ-Cfqezcz-Xg [place] Work Phone: Urea nitrogen [Mass/Vol] 35 mg/dL above high threshold 6 - 23 TU-Vetvbqc-Ni [place] Work Phone: Laboratory - Hematology and Cell countson 11-12-2022 Erythrocyte distribution width (RBC) [Ratio] 13.8 % See Below HG-Vxvflec-Rk [facility] Work Phone: Comment on above: Reference Range: 11. 5 - 14.5 Hematocrit (Bld) [Volume fraction] 29.5 % below low threshold See Below EC-Xsccqgr-Fs [place] Work Phone: Comment on above: Reference Range: 36. 0 - 46.0 Hemoglobin (Bld) [Mass/Vol] 10.0 g/dL below low threshold See Below OC-Vtampyl-Ap [place] Work Phone: Comment on above: Reference Range: 12. 0 - 16.0 MCHC (RBC) [Mass/Vol] 33.9 g/dL See Below GW-Tlevseh-Wz [place] Work Phone: Comment on above: Reference Range: 32. 0 - 36.0 MCV (RBC) [Entitic vol] 91 fL 80 - 100 CO-Qjbymvu-Mc [facility] Work Phone: [phone] Platelets (Bld) [#/Vol] 241 10*3/uL 150 - 450 GV-Xflpdwx-Gx h[facility] Work Phone: [phone] RBC (Bld) [#/Vol] 3.25 {x10E12/L} below low threshold See Below [place]-Tvsuhhx-Cy [facility] Work Phone: [phone] Comment on above: Reference Range: 4.0 0 - 5.20 WBC (Bld) [#/Vol] 7.7 10*3/uL 4.4 - 11.3 MP-Uro logy-[place] Work Phone: No Panel Informationon 11-12 23 {mL/min/1.73m2} Abnormal >90 MP-Uro logy-[place] Work Phone: Comment on above: CALCULATIONS OF SACHIN MATED GFR ARE PERFORMED USING THE 2020 CKD-EPI STUDY REFIT EQUATION WITHOUT THE RACE VARIABLE FOR THE IDMS-TRACEABLE CREATININE METHODS.https://jasn.asnjournals.org/content/early//ASN .7628594903 Radiologyon 11-12-2022 US Kidney - bilateral Normal HG-Stftvbb-Yc [place] Work Phone: UA MICROSCOPICon 11-12-2022 BACTERIA 1+ /HPF Abnormal [facility] Comment on above: Performed By: #### U AMIC ####[place] [address] Mucus Ql (Urine sed) 1+ /LPF Normal [facility] Comment on above: Performed By: #### U AMIC ####[place] [address] RBC 10 /HPF Abnormal 0-[address] [facility] Comment on above: Performed By: #### U AMIC ####[address] [address] SQUAMOUS EPITH. CELLS 5 /HPF Normal [facility] Comment on above: Performed By: #### U AMIC ####[address] [place] [address] WBC 33 /HPF Abnormal 0-[address] [facility] Comment on above: Performed By: #### U AMIC ####[address] [address] URINALYSIS WITH CULTURE IF I NDICATEDon 11-12-2022 Appearance (U) HAZY Normal CLEAR [facility] Comment on above: Performed By: #### U ARFX ####[address] [address] Bilirubin Ql (U) Negative Normal NEGATIVE [facility] Comment on above: Performed By: #### U ARFX ####[address] [address] Color (U) YELLOW See Below ZA-Adlgvwq-Fa [place] Work Phone: Comment on above: Reference Range: STR AW,YELLOW Color (U) YELLOW Normal STRAW,YELLO W [facility] Comment on above: Performed By: #### U ARFX ####[address] [address] Glucose Ql (U) Negative NEGATIVE MP-Urology -[place] Work Phone: Glucose Ql (U) Negative Normal NEGATIVE [facility] Comment on above: Performed By: #### U ARFX ####[address] [address] Hemoglobin Ql (U) MODERATE (2+) Abnormal NEGATIVE [facility] Comment on above: Performed By: #### U ARFX ####[address] [address] Ketones Ql (U) Negative NEGATIVE MP-Urology -[place] Work Phone: Ketones Ql (U) Negative Normal NEGATIVE [facility] Comment on above: Performed By: #### U ARFX ####[address] [address] Leukocyte esterase Test strip Ql (U) SMALL (1+) Abnormal NEGATIVE GR-Grdupqh-Ds [place] Work Phone: Leukocyte esterase Test strip Ql (U) SMALL (1+) Abnormal NEGATIVE [facility] Comment on above: Performed By: #### U ARFX ####[address] [address] Nitrite Ql (U) Negative Normal NEGATIVE [facility] Comment on above: Performed By: #### U ARFX ####[address] [address] pH (U) 5.5 [pH] 5.0 - 8.0 CF-Yeobrlw-Ak [place] Work Phone: pH (U) 5.5 [pH] Normal 5.0 - 8.[address] [facility] Comment on above: Performed By: #### U ARFX ####[address] [address] Protein (U) [Mass/Vol] 30 (1+) Abnormal NEGATIVE OD-Amfhzao-Xk [place] Work Phone: Protein Ql (U) 30 (1+) Abnormal NEGATIVE [facility] Comment on above: Performed By: #### U ARFX ####[address] [address] RBC (U) [#/Vol] MODERATE (2+) Abnormal NEGATIVE MP-Uro logy-[place] Work Phone: Specific gravity (U) [Rel density] 1.015 1 See Below CL-Ongykbf-Vs [place] Work Phone: Comment on above: Reference Range: 1.0 05 - 1.035 Specific gravity (U) [Rel density] 1.015 Normal 1.005 - 1.[address] [facility] Comment on above: Performed By: #### U ARFX ####[address] [address] Urobilinogen (U) [Mass/Vol] mg/dL Normal 0.0 - 1.[address] [facility] Comment on above: Performed By: #### U ARFX ####[address] [address] URINALYSIS WITH CULTURE IF INDICATED Negative NEGATIVE MP-Urology- [place] Work Phone: URINALYSIS WITH CULTURE IF INDICATED <2.0 0.0 - 1.9 MP-Urology- [place] Work Phone: URINALYSIS WITH CULTURE IF INDICATED HAZY CLEAR MP-Urology- [place] Work Phone: URINE CULTURE,BACTERIALon URINE CULTURE,BACTERIAL Normal [facility] Comment on above: Performed By: #### U [facility] ####[id number] [place] [address] Urinalysis, Microscopicon Urinalysis, Microscopic 1+ Abnormal NP-Hllpbse-Rf [place] Work Phone: Urinalysis, Microscopic 5 {/HPF} AS-Pifnccm-Jk [place] Work Phone: Urinalysis, Microscopic 10 {/HPF} Abnormal 0-5 RR-Toqntwz-Nq [place] Work Phone: Urinalysis, Microscopic 33 {/HPF} Abnormal 0-5 WG-Mqjvqns-Ja [place] Work Phone: Admission Risk Screen - Adul ton 11-11-2022 Admission Risk Screen - Adult Normal [facility] BASIC METABOLIC PANELon - Anion gap [Moles/Vol] 13 mmol/L Normal 10 - [address] [facility] Comment on above: Performed By: #### B MP ####[address] [address] Calcium [Mass/Vol] 7.8 mg/dL Low 8.6 - 10.3 [facility] Comment on above: Performed By: #### B MP ####[address] [address] Chloride [Moles/Vol] 99 mmol/L Normal 98 - 107 [facility] Comment on above: Performed By: #### B MP ####[address] [address] Creatinine [Mass/Vol] 1.24 mg/dL High 0.50 - 1.[address] [facility] Comment on above: Performed By: #### B MP ####[address] [address] GFR/1.73 sq M.predicted among non-blacks MDRD (S/P/Bld) [Vol rate/Area] 55 mL/min/{1.73_m2} Abnormal >[address] [facility] Comment on above: Result Comment: CALC ULATIONS OF ESTIMATED GFR ARE PERFORMED USING THE 2020 CKD-EPI STUDY REFIT EQUATION WITHOUT THE RACE VARIABLE FOR THE IDMS-TRACEABLE CREATININE METHODS.https://jasn.asnjournals.org/content/early/ASN .0664683255 Performed By: #### B MP ####[address] [address] Glucose [Mass/Vol] 302 mg/dL High 74 - 99 [facility] Comment on above: Performed By: #### B MP ####[address] [address] HCO3 (Bld) [Moles/Vol] 25 mmol/L Normal 21 - [address] [facility] Comment on above: Performed By: #### B MP ####[address] [address] Potassium [Moles/Vol] 3.7 mmol/L Normal 3.5 - 5.[address] [facility] Comment on above: Performed By: #### B MP ####[address] [address] Sodium [Moles/Vol] 133 mmol/L Low 136 - 145 [facility] Comment on above: Performed By: #### B MP ####[address] [address] Urea nitrogen [Mass/Vol] 19 mg/dL Normal 6 - [address] [facility] Comment on above: Performed By: #### B MP ####[address] [address] CBC AND DIFFERENTIALon 11-11 % AUTOMATED IMMATURE GRAN 0.5 % Normal 0.0 - 0.[address] [facility] Comment on above: Result Comment: Alla ture Granulocyte Count (IG) includes promyelocytes, myelocytes and metamyelocytes but does not include bands. Percent differential counts (%) should be interpreted in the context of the absolute cell counts (cells/L). Performed By: #### C BCDF ####[address] [address] Basophils (Bld) [#/Vol] 0.03 10*3/uL Normal 0.00 - 0.[address] [facility] Comment on above: Performed By: #### C BCDF ####[place] [id number] Basophils/100 WBC (Bld) 0.5 % Normal 0.0 - 2.[address] [facility] Comment on above: Performed By: #### C BCDF ####[place] [id number] Eosinophils (Bld) [#/Vol] 0.06 10*3/uL Normal 0.00 - 0.[address] [facility] Comment on above: Performed By: #### C BCDF ####[place] [address] Eosinophils/100 WBC (Bld) 1.1 % Normal 0.0 - 6.[address] [facility] Comment on above: Performed By: #### C BCDF ####[address] [address] Erythrocyte distribution width (RBC) [Ratio] 13.2 % Normal 11.5 - 14.[address] [facility] Comment on above: Performed By: #### C BCDF ####[address] [address] Hematocrit (Bld) [Volume fraction] 34.1 % Low 36.0 - 46.[address] [facility] Comment on above: Performed By: #### C BCDF ####[address] [address] Hemoglobin (Bld) [Mass/Vol] 11.1 g/dL Low 12.0 - 16.[address] [facility] Comment on above: Performed By: #### C BCDF ####[address] [address] Lymphocytes (Bld) [#/Vol] 1.08 10*3/uL Low 1.20 - 4.[address] [facility] Comment on above: Performed By: #### C BCDF ####[address] [address] Lymphocytes/100 WBC (Bld) 19.1 % Normal 13.0 - 44.[address] [facility] Comment on above: Performed By: #### C BCDF ####[address] [address] MCHC (RBC) [Mass/Vol] 32.6 g/dL Normal 32.0 - 36.[address] [facility] Comment on above: Performed By: #### C BCDF ####[address] [address] MCV (RBC) [Entitic vol] 91 fL Normal 80 - [address] [facility] Comment on above: Performed By: #### C BCDF ####[address] [address] Monocytes (Bld) [#/Vol] 0.66 10*3/uL Normal 0.10 - 1.[address] [facility] Comment on above: Performed By: #### C BCDF ####[address] [address] Monocytes/100 WBC (Bld) 11.7 % Normal 2.0 - 10.[address] [facility] Comment on above: Performed By: #### C BCDF ####[address] [address] Neutrophils (Bld) [#/Vol] 3.78 10*3/uL Normal 1.20 - 7.[address] [facility] Comment on above: Result Comment: Perc ent differential counts (%) should be interpreted in the context of the absolute cell counts (cells/L). Performed By: #### C BCDF ####[address] [address] Neutrophils/100 WBC (Bld) 67.1 % Normal 40.0 - 80.[address] [facility] Comment on above: Performed By: #### C BCDF ####[address] [address] Platelets (Bld) [#/Vol] 196 10*3/uL Normal 150 - [address] [facility] Comment on above: Performed By: #### C BCDF ####[place] [id number] RBC 3.77 x10E12/L Low 4.00 - 5.[address] [facility] Comment on above: Performed By: #### C BCDF ####[place] [address] WBC (Bld) [#/Vol] 5.6 10*3/uL Normal 4.4 - 11.3 [facility] Comment on above: Performed By: #### C BCDF ####[place] [id number] CORONAVIRUS 2019 BY PCRon Lab Specimen Source Nasal, Nasopharyngeal Normal [facility] Comment on above: Performed By: #### C OV19 ####[place] [id number] SARS-CoV-2 (COVID-19) RNA GLENNA+probe Ql (Unsp spec) Not detected Normal Not Detected [facility] Comment on above: Result Comment: .Thi s test has received FDA Emergency Use Authorization (EUA) and has beenverified by [facility]. This test is onlyauthorized for the duration of time that circumstances exist to justify theauthorization of the emergency use of in vitro diagnostic tests for thedetection of SARS-CoV-2 virus and/or diagnosis of COVID-19 infection undersection 564(b)(1) of the Act, 21 U.S.C. 360bbb-3(b)(1), unless theauthorization is terminated or revoked sooner.[facility] is certified under CLIA-88 asqualified to perform high complexity testing. Testing is performed in [facility] laboratory located at [address] [place] [address].SARS-CoV-2/Flu/RSV Multiplex Test:Fact sheet for providers: https://www.fda.gov/media/971452/downloadFact sheet for patients: https://www.[employer].gov/media/883620/download Performed By: #### C OV19 ####[place] [address] Coding Summary.on 11-11-2022 Coding Summary. CD:[id number] Gh0bW w+PGhlYWQ+ZF4AKXBgV34mwRX orI3KO8fFZD0XIGRAVIXIBK3S UO7tjED9EDmgS4OsrmUf ZvmioKFnEA58OBp8AIW6bTpjH VauwP7pbYAnR2n6CbNmWG66mC 02VMvvNNZvLnP2DcEdcblpaKY y P8nkMhZksFNyDnb+PHRhYmxlI HdpZHRoPScxMDAlJyBzdHlsZT 2bJu4vLFAtIXJcjVapwAOjRaD j a1ykJZGgFYscAW6hlYojW4Ahi LX8LMGse7a9We51qGO+PHRkIH G4uOkyTZgoo527AkVcn6cnENU 3 cTBpMAemBCS5Q73zv7V0LZZvE YToWDC4mGI1fQ1ygUwapdobA4 KhzZKyKxX1HMW9hLEpnX4fqCn n yaesaC1lCgl+D42VZM1XLGWWQ G4SOoc2N8InIciqwAC+PC90YW BtZJ53wJDzjOBeh5kqnHx8AbB w BTLpURH8qWinQBaok7UcXTBiD 72wgAPfs8F4CBFkmBrjyKHuOa HngSC9nA2sRAnbgsqwc6zgebk n Jjxpi0gbsw67lX07C30qNXkfE NOfUXO5HLRfLWHznXiden1xxT 9wIi8+YZipu9oyz1xidZc7OxU w MHMesgKxeLtyGRC4v8RvAh38X 3ParFxoc8ZsUox4vd91tMIwa0 V1aZQ0BBvnJMQbqU6iKLlgRxV 6 VBDjGgLtlT08qDDvXBibVh8tl DcvaXfiNX7cEGZdantcNAWzvD 8wCXYvjTRcfNgqKS0uTTXqavo m r857PhFcBXD7MGJaoRZoU6Mtp I0dQnLmLKDxHUTiE0JlpLJqXC cbT033UZlaVdB2YYOjnhZwM7F s GDGpyAiwStK9x9Q0Vn9Gx9Jug cqmKOS8QHpuUCJeVkF1MdPnZm A9E8ClIcq6VNNcxLuzOB4bB4H h VPPzgoumrosgfTA4DUGsMKEgm M44kAPhHAlnCo4yf5F1q471NP AdFHUtaS70Kj6pgZwdHUMwkJG U cU0ztvbtj8cczshtQbMjNWZbO Ar4LDl2ILXphNibWdDpCYT3Kp Z2YUO2aPNsxT0xpVsqqufohV2 w Oyc+O22vrH3nFFF7GJI5jsdsC YOpskIbWD82WR26N7YxVdbuuR FibGU+MQXdekFysPuuIK2fWnS j p1dro7OvDSrxV3IlVZOdHCpgV hz2NRSpKHX7iMJ4yN6pICMlEN sfo4W8dDF8L6TvcdSpkd6si9m s ODIsMFdoO20vxGYuq2W9VNOuw JD8DZRrxDtpLfAukH62Tvo+PG ButUzbh5SbHwecb3kbj9rlpVv 9 VrZfLKIemoSfpIyyMLE7w6ZuH n24F06rHBqiLGRmSKSxTTBbNI MgnSzyqm7jtF3nGx2+PGNvbCB 3 jXV5sD4gBLMpOwQ3GOrvJ682I nJswXPbHiunv1crs3llhUo4Pi FfZKJhqbQutHwpTCB3w4IhEv2 8 Z69sUWpvUNHaTIRzPSLmWYPby Xhhct1tiF6aZm6+WO5hz0dmcj 27oA50nDL+XPHnHSB1zLphWVa w EHBucB3vFDjyCuG6CXDwSwBik E92uANvPIzkXw8jzJrrrXijLD 7ePZOtbgcwb238GaSay8tmVCA w wWJnFPffUAU4P35cb1Q9LPLeP MYsGFL4vUG9sI9psHenacrwtB KhnImbuhZvvRsnNGaiOZlvA33 6 IHRvcDsnPlBhdGllbnQgTmFtZ Cs6W0ChMwx4OZMfaUjnFR8fpT RjGQcgFy4hbKxrnDpmTN1pXAF p wyecd263AnUgw2gcXQSiuOOoJ JuoHLS4C90aw8T1EAJuEKXxXD S5wYJ4dQ8ejTtyefcxwBYwsVj g zuKvjTeaFVdfFPbeB040ZHFfl YqwIbZijgMnPDNghGS2FW28ES 96zVVlk2K5zBM6R0TrWFWlpoq t oaossQB9CQFgYQMqlQ89Sp5az QxbDc7sIBMvEUS5NYBbvYQlZ5 OsuB5rViBwHCMqBAToZ4VxvWV t BQjeE648YTanYgD7TWUrkyMxG 0EyEYOeuMtuQkD8u7O6Fg9UB9 L5SO51QT85jXJsi7Z6tAA3V8X h HIBguazgrtxasQW3CAIvFTIgq J11Eo4rjTiaUr8fTWUpZLG5PY LejUXiJ9UqjY6iPeAiBXMmJUF w X2TofAUfXMkzI903MCooTbN2Y DGtsfItS0WgTJUkhPppVcK4p0 Y3Ui2ONMi6FB77RR50dHSyt3E 5 hZA4X5HmEKUbbzxyafbzvDY9S LZvFAXbtI02Sy8xqLkzRz6zXD YoJGI9GIWuuESuL2GibW9lNgP j PGDoSWFtH8CvoGRtNYvbV955W TruGxY3ZUNrgrNkJ3FtXGYeiO tlWdU7o7F4Or0DKVBrIX91BFZ 5 pTF7FQ93JW34S4BqLytptOMsl +PHRhYmxlIHdpZHRoPScxMD TqVmMagMmiLS6eKe5uIALoYDN v oIaocQZgZpYzr0pmLLYcOJniE H3kwZyiQ1PofZW1QQQau9k5Jn 70Y17dN8HqxPO+MNBjkOI1gEH 0 pC0aMbCmNxD7NExvR344EqYfw KDyAzntq7emy2yfiFm5SjM1FD XrrfEbvWxiZJG6e8OrDc69H08 s IHdpZHRoPSIxNSUiIHZhbGlnb d3kkK4pOj9+BFNhlBQ1kJV5eJ 5nScQnKlQ7HVlsZ833CyGkfLF v Xjknd8yxj1aeuGi8TrDvOCBdn eNnnGcqSTM3x5UyKo49O2DptS epj4UbRgu8nq48oFOeg3L5oHX 9 O0GsIPBkaqdlxUNmoEigZW2yU QNsdknqFHZkvR8fEVElH8f9Sl OhQiL1MQgoR7UnijP2CRXrrGP g UNkaSCK8Q41ae2P9PTCrIXGcN RH9bIN1gV0vqYxbzmeclNAbbW gkvoTxmGfcNBzlNXouM779EHX v sGqlHYQtuJ7gSUUqkXGzpSmaN V2qUJDudenePjCSVPMLPWnGOW WTTC9NCHhtvBE+VDXuCFF5dCo l TGslQJNiuN0fKOImX9m6LuWoO zY9CGguK0SvGVHbulauOm70gE 4uWqOaYwY0ZQthO9YhfvS9PQY w pQLdSZrgMAX6L14bs2P3NQIvU SUvYLE0nBP9kF1vxUcgnkeqlL HyuYuzquKxeJrgWOueWPmwI69 6 KRNzaJmhYqE4DcK7UnT5Its8I 5QeRkn2RVBpmZoaBK1ywJApOD zjTs3nkZfgqIihOO1zGVZtldn w HEUtbQ6bIVHbhTFhuJtlSZ1uT ZLsnvzlh084JeBfNZX1SCTxwJ IwN8FfjE6cDgOoHKIdMDTrF0F l sLKxJGwoE573BThkJbV7PKIwq gJkU9GoLOSenUbyLxJ1r2H3Zm 40NCBZZWFyczwvdGQ+PHRkIHN 0 yOqcDSxhEMVmfA3tEOLpJ7c4Q sJbBmB2UBoqP7OoGGRmltlzHx 79zQ2aDlDoSmY2JMzkY5PnbbW 6 MGVdyMJpYPhvQSK3W70nd1X4E ZIkKBRlEFN3cZB6dC6brRgkds ogbGVmdDsgdmVydGljYWwtYWx p T375NUGgeQolHzWfgOYkHLoln GQ+DDXnNXR3uEvwXZtnIGKrgW 0lGSXiF4o5GwBfRqM2RWyaT3R h DEEsasrdAg80dR8wAtCzJwG0O NboK2QhizK9RDJnaBWcFYegAM O9T53in3E7YRIpSAEtIWZ1xAP 4 zM0ubAbzhibwkINovWilhdEim KduOGglKCpuP162QTBrzAotQl VcMPLhZM9liOyszHH+VP65km7 8 T3RtGulrRlz7HURnUIU4nVM0h L0lHIMzPMjng7I4gZX7I0Kfsw Pqee3gg0qzZEJfMNlrD35lzYO w p3J5VGFagZI9FOPzsQdfBdElq G93Oyc+PVXauXvoz7MiFswwt9 uoe6hucJn9VfMuLNZvyzAojJu u LWD9f0OeNl00Y23nSNelBISwO SQgHDZyIPHzzOszgl8skL5rZx 8+JDCupSN2oIP9dX9jAoLtHdY 2 NLolT383DyQfvNXrYdlst3vkk 4pgoCh9OsKzAUVzhvHwjAsqIZ K6n7ZbCh45C3IuuBwcr4DlFna 0 mh16dMRyy0Z2fUB2F0QtUNZzp tfvzONdmSpaHO8uGFQswjrqGK OmnG2mCOFdT1l3XbXeOgX9HWf u P9MlezD5DPCksBMcKUJtdIORy J8cyirdx6xcvozhHcZgZMWxRW o1CSn9WRRbfLcuVlPnFGW7GnP 2 PQX1zSYqtN6kyHlppohhbH1bZ yc+RJg0a4brnTJdZB6xeSO9YD 83GX86xLLuf9G2bAP9V7WdDFI p wjxhlmgluQL6DUIbOLLliE17B m9jdKkoAh4jZXJyVWW2VRJwuX DsG0QoaV7pEmEbUBTwGAQnD4N l jZQnNPuyO088LLsiVqX5ZOYne hEvV0OwDIIacDfuHwV9s2U0Mo 0PTT96HT73BU62vROqi7H8uCD 9 U5ArRLYnejiztvzciUJ5PMZaD UNzuK47Eq3uuTkhIc7dKPLqBI M3ENUyvCEaN0ObnZ4kPjAwYZU w USPaV6ChjYYrRWkjV169EKyvN vJ2DZYoppIvM5KoYOTanIsyGf M5t7H4Yg3UOa51SC33XF74kMY g e6I7tUN2Z2PpXVHlmbhhxgwle GF4KPQoWUBtcI57Rp8ioVqrIz 0bFAWjLPA9XULjnZMpD3LmpW4 y OkKwMQFhTJKmQ3PxzGRuTPiwP 552MGxhIsC7YFEugoNuX3DdWI LutJzxRbE1p9I0Hb0DCLncjcw 8 E6LjGfgxtQO+GR42GQYlLL80u OHouXUyx3fmmUf7RzZfZPPoJH W7zVkdIIqdy2TaMIFpY39vxIV w c2U6 (more content not included)... Normal [facility] Complete Blood Count + Diffe rentialon 11-11-2022 Basophils/100 WBC (Bld) 0.5 % 0.0 - 2.0 SS-Rzxpewj-[place] Work Phone: Erythrocyte distribution width (RBC) [Ratio] 13.2 % See Below SF-Zgguydh-Qe [place] Work Phone: Comment on above: Reference Range: 11. 5 - 14.5 Hematocrit (Bld) [Volume fraction] 34.1 % below low threshold See Below HP-Txtfemc-Ba [place] Work Phone: Comment on above: Reference Range: 36. 0 - 46.0 Hemoglobin (Bld) [Mass/Vol] 11.1 g/dL below low threshold See Below TA-Mutbxnz-Kz [place] Work Phone: Comment on above: Reference Range: 12. 0 - 16.0 Lymphocytes/100 WBC (Bld) 19.1 % See Below LS-Qklmeyj-Vd [place] Work Phone: Comment on above: Reference Range: 13. 0 - 44.0 MCHC (RBC) [Mass/Vol] 32.6 g/dL See Below CG-Fambbpm-[place]p [place] Work Phone: Comment on above: Reference Range: 32. 0 - 36.0 MCV (RBC) [Entitic vol] 91 fL 80 - 100 PN-Qzebumg-Jy [place] Work Phone: Monocytes/100 WBC (Bld) 11.7 % 2.0 - 10.0 ZA-Yrsxntd-Iq [place] Work Phone: Neutrophils/100 WBC (Bld) 67.1 % See Below IU-Ijnkqal-Vt [place] Work Phone: Comment on above: Reference Range: 40. 0 - 80.0 Platelets (Bld) [#/Vol] 196 10*3/uL 150 - 450 GC-Wtmvhfr-Yj [place] Work Phone: RBC (Bld) [#/Vol] 3.77 {x10E12/L} below low threshold See Below PV-Yrqoyju-Ju [place] Work Phone: Comment on above: Reference Range: 4.0 0 - 5.20 WBC (Bld) [#/Vol] 5.6 10*3/uL 4.4 - 11.3 MP-Uro logy-[place] Work Phone: Complete Blood Count + Differential 0.03 {x10E9/L} See Below QW-Ymwdfac-[place]z [place] Work Phone: Comment on above: Reference Range: 0.0 0 - 0.10 Complete Blood Count + Differential 0.06 {x10E9/L} See Below LE-Eenifnm-Bu [place] Work Phone: Comment on above: Reference Range: 0.0 0 - 0.70 Complete Blood Count + Differential 0.66 {x10E9/L} See Below EG-Svescap-[place]r [place] Work Phone: Comment on above: Reference Range: 0.1 0 - 1.00 Complete Blood Count + Differential 1.08 {x10E9/L} below low threshold See Below PH-Irbyjuq-[place]h [place] Work Phone: Comment on above: Reference Range: 1.2 0 - 4.80 Complete Blood Count + Differential 3.78 {x10E9/L} See Below WQ-Kmvhnaw-[place]z [place] Work Phone: Comment on above: Reference Range: 1.2 0 - 7.70 Percent differential counts (%) should be interpreted in the context of the absolute cell counts (cells/L). Complete Blood Count + Differential 1.1 % 0.0 - 6.0 EO-Npjchgy-Ay [place] Work Phone: Complete Blood Count + Differential 0.5 % 0.0 - 0.9 SW-Yssqyku-Hm [place] Work Phone: Comment on above: Immature Granulocyte Count (IG) includes promyelocytes, myelocytes and metamyelocytes but does not include bands. Percent differential counts (%) should be interpreted in the context of the absolute cell counts (cells/L). Consult-Urologyon 11-11-2022 Consult-Urology Normal [facility] Covid 19 Resultson SARS-CoV-2 (COVID-19) RNA GLENNA+probe Ql (Unsp spec) Normal [facility] Discharge Planning Vjnb1tf 0 11-11-2022 Discharge Planning Note2 Normal [facility] [place] [facility] Glucose [Mass/Vol] 219 mg/dL High - [address] [place] [address] Comment on above: Performed By: #### G MAURA ####[address] [address] Glucose [Mass/Vol] 264 mg/dL High [address] [place] [address] Comment on above: Performed By: #### G MAURA ####[address] [address] Glucose [Mass/Vol] 360 mg/dL High - [address] [place] [address] Comment on above: Performed By: #### G MAURA ####[address] [address] Glucose [Mass/Vol] 313 mg/dL High [address] [place] [address] Comment on above: Performed By: #### G MAURA ####[address] [address] Laboratory - Chemistry and C hemistry - challengeon 11-11-2022 Anion gap [Moles/Vol] 13 mmol/L 10 - 20 QY-Zjsdsur-Tb [place] Work Phone: Calcium [Mass/Vol] 7.8 mg/dL below low threshold 8.6 - 10.3 FC-Vjttywi-[place]y [place] Work Phone: Chloride [Moles/Vol] 99 mmol/L 98 - 107 MP-U rology-[place] Work Phone: [phone] CO2 [Moles/Vol] 25 mmol/L 21 - 32 MP-Urolog y-[place] Work Phone: Creatinine [Mass/Vol] 1.24 mg/dL above high threshold See Below SC-Jbwbeay-Kl [place] Work Phone: Comment on above: Reference Range: 0.5 0 - 1.05 Glucose [Mass/Vol] 302 mg/dL above high threshold 74 - 99 BD-Vnkrbpl-Kf [place] Work Phone: [phone] Glucose [Mass/Vol] 219 mg/dL above high threshold 74 - 99 BB-Bnmdhjh-[place]w [place] Work Phone: Glucose [Mass/Vol] 264 mg/dL above high threshold 74 - 99 DN-Cyeucyp-Yl [place] Work Phone: Glucose [Mass/Vol] 360 mg/dL above high threshold 74 - 99 KJ-Jidridh-Jy [place] Work Phone: Glucose [Mass/Vol] 313 mg/dL above high threshold 74 - 99 CY-Idwpkmw-Oz [place] Work Phone: Potassium [Moles/Vol] 3.7 mmol/L 3.5 - 5.3 ZC-Uhkcxji-Rj [place] Work Phone: Sodium [Moles/Vol] 133 mmol/L below low threshold 136 - 145 LW-Hwsyxdp-Ul [place] Work Phone: Urea nitrogen [Mass/Vol] 19 mg/dL 6 - 23 WC-Gqtiazg-[place]n [place] Work Phone: No Panel Informationon 11-11 55 {mL/min/1.73m2} Abnormal >90 [facility]Uro logy[facility] Work Phone: Comment on above: CALCULATIONS OF SACHIN MATED GFR ARE PERFORMED USING THE 2020 CKD-EPI STUDY REFIT EQUATION WITHOUT THE RACE VARIABLE FOR THE IDMS-TRACEABLE CREATININE METHODS.https://jasn.asnjournals.org/content//ASN .0110218354 Order Reconciliationon 11-11 Order Reconciliation Normal [facility] Patient Profile - Adult v2on 11-11-2022 Patient Profile - Adult v2 Normal [facility] CBC AND DIFFERENTIALon 11-10 % AUTOMATED IMMATURE GRAN 0.4 % Normal 0.0 - 0.[address] [facility] Comment on above: Result Comment: Alla ture Granulocyte Count (IG) includes promyelocytes, myelocytes and metamyelocytes but does not include bands. Percent differential counts (%) should be interpreted in the context of the absolute cell counts (cells/L). Performed By: #### C BCDF ####[address] [address] Basophils (Bld) [#/Vol] 0.02 10*3/uL Normal 0.00 - 0.[address] [facility] Comment on above: Performed By: #### C BCDF ####[address] [address] Basophils/100 WBC (Bld) 0.2 % Normal 0.0 - 2.[address] [facility] Comment on above: Performed By: #### C BCDF ####[address] [address] Eosinophils (Bld) [#/Vol] 0.02 10*3/uL Normal 0.00 - 0.[address] [facility] Comment on above: Performed By: #### C BCDF ####[address] [address] Eosinophils/100 WBC (Bld) 0.2 % Normal 0.0 - 6.[address] [facility] Comment on above: Performed By: #### C BCDF ####[address] [address] Erythrocyte distribution width (RBC) [Ratio] 12.8 % Normal 11.5 - 14.[address] [facility] Comment on above: Performed By: #### C BCDF ####[address] [address] Hematocrit (Bld) [Volume fraction] 34.2 % Low 36.0 - 46.[address] [facility] Comment on above: Performed By: #### C BCDF ####[address] [address] Hemoglobin (Bld) [Mass/Vol] 11.7 g/dL Low 12.0 - 16.[address] [facility] Comment on above: Performed By: #### C BCDF ####[address] [address] Lymphocytes (Bld) [#/Vol] 1.01 10*3/uL Low 1.20 - 4.[address] [facility] Comment on above: Performed By: #### C BCDF ####[address] [address] Lymphocytes/100 WBC (Bld) 12.6 % Normal 13.0 - 44.[address] [facility] Comment on above: Performed By: #### C BCDF ####[address] [address] MCHC (RBC) [Mass/Vol] 34.2 g/dL Normal 32.0 - 36.[address] [facility] Comment on above: Performed By: #### C BCDF ####[address] [address] MCV (RBC) [Entitic vol] 88 fL Normal 80 - [address] [facility] Comment on above: Performed By: #### C BCDF ####[address] [address] Monocytes (Bld) [#/Vol] 0.88 10*3/uL Normal 0.10 - 1.[address] [facility] Comment on above: Performed By: #### C BCDF ####[address] [address] Monocytes/100 WBC (Bld) 11.0 % Normal 2.0 - 10.[address] [facility] Comment on above: Performed By: #### C BCDF ####[address] [address] Neutrophils (Bld) [#/Vol] 6.07 10*3/uL Normal 1.20 - 7.[address] [facility] Comment on above: Result Comment: Perc ent differential counts (%) should be interpreted in the context of the absolute cell counts (cells/L). Performed By: #### C BCDF ####[address] [address] Neutrophils/100 WBC (Bld) 75.6 % Normal 40.0 - 80.[address] [facility] Comment on above: Performed By: #### C BCDF ####[address] [address] Platelets (Bld) [#/Vol] 210 10*3/uL Normal 150 - [address] [facility] Comment on above: Performed By: #### C BCDF ####[address] [address] RBC 3.91 x10E12/L Low 4.00 - 5.[address] [facility] Comment on above: Performed By: #### C BCDF ####[address] [address] WBC (Bld) [#/Vol] 8.0 10*3/uL Normal 4.4 - 11.3 [facility] Comment on above: Performed By: #### C BCDF ####[address] [address] COMPREHENSIVE PANELon 2022 Albumin [Mass/Vol] 3.1 g/dL Low 3.4 - 5.0 [facility] Comment on above: Performed By: #### C MP ####[address] [address] ALP [Catalytic activity/Vol] 84 U/L Normal 33 - [address] [facility] Comment on above: Performed By: #### C MP ####[address] [address] ALT [Catalytic activity/Vol] 28 U/L Normal 7 - [address] [facility] Comment on above: Result Comment: Bridget ents treated with Sulfasalazine may generate falsely decreased results for ALT. Performed By: #### C MP ####[address] [address] Anion gap [Moles/Vol] 14 mmol/L Normal 10 - [address] [facility] Comment on above: Performed By: #### C MP ####[address] [address] AST [Catalytic activity/Vol] 26 U/L Normal 9 - [address] [facility] Comment on above: Performed By: #### C MP ####[address] [address] Bilirubin [Mass/Vol] 1.0 mg/dL Normal 0.0 - 1.2 [facility] Comment on above: Performed By: #### C MP ####[address] [address] Calcium [Mass/Vol] 8.2 mg/dL Low 8.6 - 10.3 [facility] Comment on above: Performed By: #### C MP ####[address] [address] Chloride [Moles/Vol] 93 mmol/L Low 98 - 107 [facility] Comment on above: Performed By: #### C MP ####[address] [address] Creatinine [Mass/Vol] 1.25 mg/dL High 0.50 - 1.[address] [facility] Comment on above: Performed By: #### C MP ####[address] [address] GFR/1.73 sq M.predicted among non-blacks MDRD (S/P/Bld) [Vol rate/Area] 54 mL/min/{1.73_m2} Abnormal >[address] [facility] Comment on above: Result Comment: CALC ULATIONS OF ESTIMATED GFR ARE PERFORMED USING THE 2020 CKD-EPI STUDY REFIT EQUATION WITHOUT THE RACE VARIABLE FOR THE IDMS-TRACEABLE CREATININE METHODS.https://jasn.asnjournals.org/content//ASN .2065369752 Performed By: #### C MP ####[address] [address] Glucose [Mass/Vol] 327 mg/dL High 74 - 99 [facility] Comment on above: Performed By: #### C MP ####[address] [address] HCO3 (Bld) [Moles/Vol] 27 mmol/L Normal 21 - [address] [facility] Comment on above: Performed By: #### C MP ####[address] [address] Potassium [Moles/Vol] 3.7 mmol/L Normal 3.5 - 5.[address] [facility] Comment on above: Performed By: #### C MP ####[address] [address] Protein [Mass/Vol] 6.7 g/dL Normal 6.4 - 8.2 [facility] Comment on above: Performed By: #### C MP ####[address] [address] Sodium [Moles/Vol] 130 mmol/L Low 136 - 145 [facility] Comment on above: Performed By: #### C MP ####[address] [address] Urea nitrogen [Mass/Vol] 16 mg/dL Normal 6 - [address] [facility] Comment on above: Performed By: #### C MP ####[address] [address] [address] ABDOMEN AND PELVIS W IV C ONTRASTon 11-10-2022 CT ABDOMEN AND PELVIS W IV CONTRAST Normal [facility] CT Abdomen and Pelvis with I V Contraston 11-10-2022 CT Abdomen and Pelvis W contrast IV Normal [facility] [place] Work Phone: Complete Blood Count + Diffe rentialon 11-10-2022 Basophils/100 WBC (Bld) 0.2 % 0.0 - 2.0 GV-Cspkjua-Yc [facility] Work Phone: Erythrocyte distribution width (RBC) [Ratio] 12.8 % See Below ZS-Iyyjxwm-Gn [place] Work Phone: Comment on above: Reference Range: 11. 5 - 14.5 Hematocrit (Bld) [Volume fraction] 34.2 % below low threshold See Below IK-Wvmyzgs-Sq [place] Work Phone: Comment on above: Reference Range: 36. 0 - 46.0 Hemoglobin (Bld) [Mass/Vol] 11.7 g/dL below low threshold See Below ZX-Dhdrcqw-Hu [place] Work Phone: Comment on above: Reference Range: 12. 0 - 16.0 Lymphocytes/100 WBC (Bld) 12.6 % See Below CH-Tkcmrft-[place] Work Phone: Comment on above: Reference Range: 13. 0 - 44.0 MCHC (RBC) [Mass/Vol] 34.2 g/dL See Below TZ-Zmbfsdx-Vk [place] Work Phone: Comment on above: Reference Range: 32. 0 - 36.0 MCV (RBC) [Entitic vol] 88 fL 80 - 100 GA-Gucixyj-[place] Work Phone: Monocytes/100 WBC (Bld) 11.0 % 2.0 - 10.0 AN-Ftbergp-[place]g [place] Work Phone: Neutrophils/100 WBC (Bld) 75.6 % See Below CO-Xpmseqf-Cm [place] Work Phone: Comment on above: Reference Range: 40. 0 - 80.0 Platelets (Bld) [#/Vol] 210 10*3/uL 150 - 450 AL-Wsflryf-Lm [place] Work Phone: RBC (Bld) [#/Vol] 3.91 {x10E12/L} below low threshold See Below AD-Pmjwors-Pz [place] Work Phone: Comment on above: Reference Range: 4.0 0 - 5.20 WBC (Bld) [#/Vol] 8.0 10*3/uL 4.4 - 11.3 MP[facility]Uro logy[facility] Work Phone: Complete Blood Count + Differential 0.02 {x10E9/L} See Below NN-Jetqnyp-Bz [place] Work Phone: Comment on above: Reference Range: 0.0 0 - 0.10 Reference Range: 0.0 0 - 0.70 Complete Blood Count + Differential 0.88 {x10E9/L} See Below PM-Excghdc-Uw [place] Work Phone: Comment on above: Reference Range: 0.1 0 - 1.00 Complete Blood Count + Differential 1.01 {x10E9/L} below low threshold See Below LL-Hcjdnke-Qf [place] Work Phone: Comment on above: Reference Range: 1.2 0 - 4.80 Complete Blood Count + Differential 6.07 {x10E9/L} See Below LY-Rmqtakk-[place] Work Phone: Comment on above: Reference Range: 1.2 0 - 7.70 Percent differential counts (%) should be interpreted in the context of the absolute cell counts (cells/L). Complete Blood Count + Differential 0.2 % 0.0 - 6.0 IT-Qxjrozx-Yq [place] Work Phone: Complete Blood Count + Differential 0.4 % 0.0 - 0.9 RB-Fvpqhzb-Zl [place] Work Phone: Comment on above: Immature Granulocyte Count (IG) includes promyelocytes, myelocytes and metamyelocytes but does not include bands. Percent differential counts (%) should be interpreted in the context of the absolute cell counts (cells/L). Coronavirus 2019 RNA by PCR, Symptomaticon 11-10-2022 Coronavirus 2019 RNA by PCR, Symptomatic Not detected Normal See Below EO-Earjvlb-A [place] Work Phone: Comment on above: SOURCE: Nasal, Nasop haryngealReference Range: Not Detected.This test has received FDA Emergency Use Authorization (EUA) and has been verified by [facility]. This test is only authorized for the duration of time that circumstances exist to justify the authorization of the emergency use of in vitro diagnostic tests for the detection of SARS-CoV-2 virus and/or diagnosis of COVID-19 infection under section 564(b)(1) of the Act, 21 U.S.C. 360bbb-3(b)(1), unless the authorization is terminated or revoked sooner. [facility] is certified under CLIA-88 as qualified to perform high complexity testing. Testing is performed in the [facility] laboratory located at [address] [place] [address].SARS-CoV-2/Flu/RSV Multiplex Test: Fact sheet for providers: https://www.fda.gov/media/739660/downloadFact sheet for patients: https://www.fda.gov/media/159487/download ED Note-Physicianon 11-11-19 ED Note-Physician Basic Information Time Seen: Shawn Francois PA-C 11/07/2022 09:20 Chief Complaint Pt has been vomiting for 3 days. diabetic. hyperglycemic. History of Present Illness 42-year-old female comes to the ED for evaluation of nausea and vomiting. Patient states yesterday she developed nausea vomiting and diarrhea. Today she developed some low back pain with this. No urinary complaints. She presents via EMS report elevated blood sugars as well. She does have a history of insulin-dependent diabetes. She has had previous cholecystectomy. She denies any concern for . No recent travel, sick contacts or bad food. No prior treatments. Review of Systems A 10 point review of systems is negative except as noted above. Medical and Surgical History: Reviewed and noted Social history: Lives at home Tobacco: Denies Physical Exam Vitals & Measurements T: 37.2 ?C(Oral) HR: 107(Monitored) RR: 18 BP: 129/61 SpO2: 95% HT: 162.56 cm WT: 98 kg BMI: 37.09 Nurses notes and vital signs reviewed and patient is not hypoxic. General: The patient appears well, resting comfortably. Skin: Warm, dry. Head: Atraumatic. Neck: No JVD. Eye: Normal conjunctiva. Ears, Nose, Mouth, and Throat: Moist mucous membranes. Cardiovascular: Strong distal pulses. Mild tachycardic Chest wall: Respiratory: Respirations are nonlabored. Back: Normal range of motion. No CVA tenderness Musculoskeletal: Normal ROM with no gross deformity. Gastrointestinal: Soft and nontender Urological: Neurological: Awake and alert. No focal deficits. Follows commands. Psychiatric: Cooperative. Medical Decision Making Laboratory studies reviewed and noted. There is a slight leukocytosis. She does have hyperglycemia but is not acidotic. She was treated here with 2 L of IV fluid, Toradol, Zofran and a dose of subcutaneous insulin. Repeat evaluation she is feeling much improved. She states she was treated with fosfomycin for UTI approximately 1 week ago but continues to have urinary symptoms. She does have some hematuria but she is resting comfortably, has no CVA tenderness, and no clinical evidence of stone disease. She is afebrile. Her vomiting has been well controlled. She is started on Keflex and discharged home to follow-up with her PCP. Patient was encouraged to return to the ED if symptoms worsen or change. Critical Care Time: 40 minutes, critical care time is separate from any procedures that are performed. The following was considered in the determination of critical care but not limited to the level medical decision-making, intensive cardiac and/or respiratory monitor, frequent vital sign monitoring, evaluation of laboratory studies, evaluation of a radiographic studies, oxygen monitoring and constant monitoring. Assessment/Plan Diarrhea, unspecified (R19.7: Diarrhea, unspecified) Hyperglycemia (R73.9: Hyperglycemia, unspecified) Nausea vomiting and diarrhea (R11.2: Nausea with vomiting, unspecified) UTI symptoms (R39.9: Unspecified symptoms and signs involving the genitourinary system) Orders: cephalexin, 500 mg = 1 cap(s), Oral, q12hr, X 7 day(s), # 14 cap(s), Refills(s) 0 insulin regular, 6 unit(s), Injection-Insulin, SubCutaneous, Once, Stop date 11/07/22 11:34:00 EST, STAT, Start date 11/07/22 11:34:00 EST, 11/07/22 11:34:00 EST ketorolac, 30 mg = 1 mL, Injection, IV Push, Once, Stop date 11/07/22 9:21:00 EST, STAT, Start date 11/07/22 9:21:00 EST, 11/07/22 9:21:00 EST ondansetron, 4 mg = 1 tab(s), Oral, TID, # 15 tab(s), Refills(s) 0 ondansetron, 4 mg = 2 mL, Injection, IV Push, Once, Stop date 11/07/22 9:21:00 EST, STAT, Start date 11/07/22 9:21:00 EST, 11/07/22 9:21:00 EST Sodium Chloride 0.9% intravenous solution, 1,000 mL, Soln-IV, IV, Once, Stop date 11/07/22 9:21:00 EST, STAT, Start date 11/07/22 9:21:00 EST, mL/hr, Infuse over 61, minute(s) Sodium Chloride 0.9% intravenous solution, 1,000 mL, Soln-IV, IV, Once, Stop date 11/07/22 10:25:00 EST, STAT, Start date 11/07/22 10:25:00 EST, mL/hr, Infuse over 61, minute(s) Automated Diff Basic Metabolic Panel Beta hCG Qual CBC w/ Auto Diff eGFR Extra Blue Tube Hepatic Function Panel Lipase Level UA With Cult Reflex Urine Culture Medications Administered Given ketorolac 30 mg/mL Inj 1 mL, 30 mg, IV Push [id number] [F], 1000 mL, IV [id number] [F], 1000 mL, IV ondansetron 4 mg/2 mL Inj, 4 mg, IV Push Disposition Plan Patient Discharge Condition Disposition: Discharged home Condition: Improved and stable Counseled: Patient and/or family were counseled to workup, results, treatment plan and follow-up recommendations Discharge Prescription List Prescriptions Keflex 500 mg Cap, 500 mg= 1 cap(s), Oral, q12hr Zofran ODT 4 mg Tab-Dis, 4 mg= 1 tab(s), Oral, TID Follow-up With When Contact Information BHANU MAR In 3 days 11/10/2022 EST Yeison Young, [facility] [place] [address] [facility] (1) Additional Instructions: Patient Education Hyperglycemia Urinary (more content not included)... Normal [facility] Comment on above: Result Comment: Elec tronically Signed By: Shawn Francois PA-C\.br\Date and Time Signed: 11/07/22 11:43 EST\.br\Electronically Co-Signed By: Srinivas Easley DO\.br\Date and Time Co-Signed: 11/10/22 07:01 EST LIPASEon 11-10-2022 Lipase [Catalytic activity/Vol] 12 U/L Normal 9 - [address] [facility] Comment on above: Result Comment: Paris puncture immediately after or during the administration of Metamizole may lead to falsely low results. Testing should be performed immediately prior to Metamizole dosing. K-dohjtj-b-benzoquinone imine (metabolite of Acetaminophen) will generate erroneously low results in samples for patients that have taken toxic doses of acetaminophen. Performed By: #### L IPAS ####[place] [id number] [place] [id number] Laboratory - Chemistry and C hemistry - challengeon 11-10-2022 Albumin BCP dye [Mass/Vol] 3.1 g/dL below low threshold 3.4 - 5.0 XT-Mhpdjbo-[place]v [place] Work Phone: ALP [Catalytic activity/Vol] 84 U/L 33 - 110 ZL-Jqfsekq-Ti [place] Work Phone: ALT With P-5'-P [Catalytic activity/Vol] 28 U/L 7 - 45 JE-Mgrsnfk-Qx [place] Work Phone: Comment on above: Patients treated wit h Sulfasalazine may generate falsely decreased results for ALT. Anion gap [Moles/Vol] 14 mmol/L 10 - 20 BW-Ebpsdke-Ru [place] Work Phone: AST With P-5'-P [Catalytic activity/Vol] 26 U/L 9 - 39 DL-Lfhfgmu-Uk [place] Work Phone: Bilirubin [Mass/Vol] 1.0 mg/dL 0.0 - 1.2 MP-U rology-[place] Work Phone: Calcium [Mass/Vol] 8.2 mg/dL below low threshold 8.6 - 10.3 MZ-Zcaelpe-Ee [place] Work Phone: Chloride [Moles/Vol] 93 mmol/L below low threshold 98 - 107 JO-Xjopikh-Ny [place] Work Phone: CO2 [Moles/Vol] 27 mmol/L 21 - 32 MP-Urolog y-[place] Work Phone: Creatinine [Mass/Vol] 1.25 mg/dL above high threshold See Below GR-Sxsgjeq-Gq [place] Work Phone: Comment on above: Reference Range: 0.5 0 - 1.05 Glucose [Mass/Vol] 327 mg/dL above high threshold 74 - 99 QN-Vgowsqg-Zr [place] Work Phone: Potassium [Moles/Vol] 3.7 mmol/L 3.5 - 5.3 DP-Hjrehsm-[place] Work Phone: Protein [Mass/Vol] 6.7 g/dL 6.4 - 8.2 MP-Uro logy-[place] Work Phone: Sodium [Moles/Vol] 130 mmol/L below low threshold 136 - 145 ER-Xctvqpq-Sb [place] Work Phone: Urea nitrogen [Mass/Vol] 16 mg/dL 6 - 23 AL-Ywhfkii-Dv [place] Work Phone: Lipase, Serumon 11-10-2022 Lipase [Catalytic activity/Vol] 12 U/L 9 - 82 NN-Iwdczch-Qe [place] Work Phone: Comment on above: Venipuncture immedia tely after or during the administration of Metamizole may lead to falsely low results. Testing should be performed immediately prior to Metamizole dosing. P-ihznhw-t-benzoquinone imine (metabolite of Acetaminophen) will generate erroneously low results in samples for patients that have taken toxic doses of acetaminophen. No Panel Informationon 11-10 54 {mL/min/1.73m2} Abnormal >90 MP-Uro logy[facility] Work Phone: Comment on above: CALCULATIONS OF SACHIN MATED GFR ARE PERFORMED USING THE 2020 CKD-EPI STUDY REFIT EQUATION WITHOUT THE RACE VARIABLE FOR THE IDMS-TRACEABLE CREATININE METHODS.https://jasn.asnjournals.org/content//ASN .1683411196 Provider Note - ED v3on 03-0 Provider Note - ED v3 Normal [facility] Risk Screen - Adult Emergenc yon 11-10-2022 Risk Screen - Adult Emergency Normal [facility] Triage - EDon 11-10-2022 Triage - ED Normal [facility] UA MICROSCOPICon 11-10-2022 BACTERIA 1+ /HPF Abnormal [facility] Comment on above: Performed By: #### U AMIC ####[place] [address] Mucus Ql (Urine sed) 1+ /LPF Normal [facility] Comment on above: Performed By: #### U AMIC ####[place] [address] RBC 37 /HPF Abnormal 0-[address] [facility] Comment on above: Performed By: #### U AMIC ####[place] [address] SQUAMOUS EPITH. CELLS 18 /HPF Normal [facility] Comment on above: Performed By: #### U AMIC ####[place] [address] WBC (U) [#/Vol] /uL Abnormal 0-[address] [facility] Comment on above: Performed By: #### U AMIC ####[place] [address] WBC CLUMPS FEW Normal [facility] Comment on above: Performed By: #### U AMIC ####[place] [id number] URINALYSISon 11-10-2022 Appearance (U) HAZY Normal CLEAR [facility] Comment on above: Performed By: #### U A ####[place] [address] Bilirubin Ql (U) Negative Normal NEGATIVE [facility] Comment on above: Performed By: #### U A ####[place] [id number] Color (U) Silke Normal STRAW,YELLO W [facility] Comment on above: Performed By: #### U A ####[place] [address] Glucose Ql (U) >=500(3+) Abnormal NEGATIVE [facility] Comment on above: Performed By: #### U A ####[address] [address] Hemoglobin Ql (U) MODERATE(2+) Abnormal NEGATIVE [facility] Comment on above: Performed By: #### U A ####[address] [address] Ketones Ql (U) Negative Normal NEGATIVE [facility] Comment on above: Performed By: #### U A ####[place] [id number] Leukocyte esterase Test strip Ql (U) SMALL(1+) Abnormal NEGATIVE [facility] Comment on above: Performed By: #### U A ####[place] [id number] Nitrite Ql (U) Negative Normal NEGATIVE [facility] Comment on above: Performed By: #### U A ####[place] [id number] pH (U) 6.0 [pH] Normal 5.0 - 8.[address] [facility] Comment on above: Performed By: #### U A ####[address] [address] Protein Ql (U) >=500(3+) Abnormal NEGATIVE [facility] Comment on above: Performed By: #### U A ####[address] [address] Specific gravity (U) [Rel density] 1.022 Normal 1.005 - 1.[address] [facility] Comment on above: Performed By: #### U A ####[address] [address] Urobilinogen (U) [Mass/Vol] 4.0 mg/dL High 0.0 - 1.[address] [facility] Comment on above: Result Comment: SOME PIGMENTS AND MEDICATIONS MAY CAUSE AFALSE POSITIVE UROBILINOGEN Performed By: #### U A ####[address] [address] Urinalysison 11-10-2022 Color (U) Silke See Below NI-Wxzicum-Tz [place] Work Phone: Comment on above: Reference Range: STR AW,YELLOW Glucose Ql (U) >=500(3+) Abnormal NEGATIVE MP-Urology -[place] Work Phone: Ketones Ql (U) Negative NEGATIVE MP-[facility]rology -[place] Work Phone: Leukocyte esterase Test strip Ql (U) SMALL(1+) Abnormal NEGATIVE JS-Zlvtows-[place]h [place] Work Phone: pH (U) 6.0 [pH] 5.0 - 8.0 XT-Nrtxohu-Jc [place] Work Phone: Protein (U) [Mass/Vol] >=500(3+) Abnormal NEGATIVE WQ-Pklzhzy-[place] Work Phone: RBC (U) [#/Vol] MODERATE(2+) Abnormal NEGATIVE MP-Urol ogy-[place] Work Phone: Specific gravity (U) [Rel density] 1.022 1 See Below UU-Mrympst-Cf [place] Work Phone: Comment on above: Reference Range: 1.0 05 - 1.035 Urinalysis Negative NEGATIVE KO-Vgbjgyo-[place]z [place] Work Phone: Urinalysis 4.0 mg/dL above high threshold 0.0 - 1.9 ZG-Sftcwev-Xc [place] Work Phone: Comment on above: SOME PIGMENTS AND ME DICATIONS MAY CAUSE AFALSE POSITIVE UROBILINOGEN Urinalysis HAZY CLEAR FC-Dyvscir-Qb [place] Work Phone: Urinalysis, Microscopicon Urinalysis, Microscopic 1+ Abnormal UX-Wezwvak-Kl [place] Work Phone: Urinalysis, Microscopic 18 {/HPF} ZU-Lkgecuj-Nd [place] Work Phone: Urinalysis, Microscopic 37 {/HPF} Abnormal 0-5 JW-Mzemywu-[place]q [place] Work Phone: Urinalysis, Microscopic FEW GY-Vgxdqzs-Oj [place] Work Phone: Urinalysis, Microscopic >182 Abnormal 0-5 IV-Oeblpnf-[place]f [place] Work Phone: C Urineon 11-09-2022 Bacteria identified Cx Nom (U) Microbiology PROCEDURE: Urine Culture [R1] SOURCE: U CleanCatch BODY SITE: COLLECTED DATE/TIME: 11/07/2022 09:40 EST RECEIVED DATE/TIME: 11/07/2022 11:15 EST START DATE/TIME: 11/07/2022 11:15 EST FREE TEXT SOURCE: Alessandro GAYTAN, Shawn Francois PA-C, Shawn FINAL REPORTS Final Report [] Verified Date/Time: 11/09/2022 11:46 EST >100,000 cfu/ml Escherichia coli ESBL 1,000 cfu/ml Mixed skin contaminants Final Report Printed to Emergency Dept ([id number]) Result Review. SUSCEPTIBILITY RESULTS __ LEGEND: S=Susceptible, N/R=Not Reported, Blank=Data not available, or drug not advisable or tested, I=Intermediate, ESBL=Extended spectrum beta-lactamase, R=Resistant, TFG=Thymidine-dependent strain, PASQUALE=Beta-lactamase positive, JOHNATHON=mcg/m;(mg/L), S*=Predicted susceptible interp, R*=Predicted resistant interp ECESBL Antibiotic JOHNATHON Dilutn JOHNATHON Interp Amikacin <=16 S Ampicillin >16 R* Ampicillin/ 16/8 I Sulbactam Aztreonam 16 ESBL Cefazolin >16 R* Cefepime >16 R* Cefoxitin <=8 S Ceftazidime 8 ESBL Ceftazidime/ <=8 S Avibactam Ceftriaxone >32 ESBL Ciprofloxacin >2 R Ertapenem <=0.5 S Gentamicin >8 R Levofloxacin >4 R Meropenem <=1 S Nitrofurantoin >64 R Piperacillin/ <=16 S Tazobactam Tetracycline >8 R Tigecycline <=2 S Tobramycin >8 R Trimethoprim/ >2/38 R Sulfa Performing Locations R1: This test was performed at: [facility], [address] [place] [address], [address] , , Normal [facility] Comment on above: Performed By: #### 2 [id number], [id number] ####[address] [address] Auto Diffon 11-07-2022 Basophils/100 WBC (Bld) 0.2 % Normal 0.0-2.0 [facility] Comment on above: Order Comment: Order Added by Discern Expert. Performed By: #### 1 3407976, 2209787, 2653669, 8157347, 58286438, 9615697, 5125632 ####[address] [address] Basophils/Leukocytes Auto (Bld) [Pure # fraction] 0.0 E9/L Normal 0.0-0.2 [facility] Comment on above: Order Comment: Order Added by Discern Expert. Performed By: #### 1 7702555, 9794924, 1491109, 3966625, 26252711, 6750527, 5590106 ####[address] [address] Eosinophils/100 WBC (Bld) 0.0 % Normal 0.0-8.0 [facility] Comment on above: Order Comment: Order Added by Discern Expert. Performed By: #### 1 1130641, 6334830, 2433817, 4342682, 04101414, 9892349, 0760317 ####[address] [place] [address] Eosinophils/Leukocyt es Auto (Bld) [Pure # fraction] 0.0 E9/L Normal 0.0-0.5 [facility] Comment on above: Order Comment: Order Added by Discern Expert. Performed By: #### 1 0086767, 4399514, 0351937, 5992594, 57674731, 8546756, 0413452 ####[address] [place] [address] Lymphocytes/100 WBC (Bld) 7.8 % Low 14.0-50.0 [facility] Comment on above: Order Comment: Order Added by Discern Expert. Performed By: #### 1 6747808, 8032121, 5693850, 8819993, 17136768, 8729058, 9715445 ####[address] [address] Lymphocytes/Leukocyt es Auto (Bld) [Pure # fraction] 1.2 E9/L Normal 1.0-4.0 [facility] Comment on above: Order Comment: Order Added by Discern Expert. Performed By: #### 1 2060790, 9194837, 8557744, 0359677, 15882534, 5405298, 1738024 ####[address] [place] [address] Monocytes/100 WBC (Bld) 5.8 % Normal 4.0-14.0 [facility] Comment on above: Order Comment: Order Added by Discern Expert. Performed By: #### 1 9314759, 0125185, 4837097, 9215289, 50936564, 5979185, 4308717 ####[address] [place] [address] Monocytes/Leukocytes Auto (Bld) [Pure # fraction] 0.9 E9/L Normal 0.2-1.0 [facility] Comment on above: Order Comment: Order Added by Discern Expert. Performed By: #### 1 6006050, 0079306, 6628633, 8746728, 19043518, 5045574, 8222665 ####[facility] [address] [place] [address] Neutrophils/100 WBC (Bld) 86.2 % High 36.0-75.0 [facility] Comment on above: Order Comment: Order Added by Discern Expert. Performed By: #### 1 4490901, 0282754, 0936916, 9397131, 58831085, 5059401, 6491565 ####[facility] [address] [place] [address] Neutrophils/Leukocyt es Auto (Bld) [Pure # fraction] 13.4 E9/L High 2.0-7.5 [facility] Comment on above: Order Comment: Order Added by Discern Expert. Performed By: #### 1 7085872, 9695779, 0154821, 3167307, 65253837, 2648094, 5433929 ####[address] [place] [address] B hCG Qualon 11-07-2022 Beta hCG Ql Negative Normal [facility] Comment on above: Performed By: #### 1 2839177, 6319440, 7933548, 1359815, 13391966, 4273382, 4190871 ####[facility] [address] [place] [address] BMPon 11-07-2022 Anion gap [Moles/Vol] 18 mmol/L High 6-16 [facility] Comment on above: Performed By: #### 1 5889216, 1102004, 3088922, 1250297, 25436090, 6345590, 7419850 ####[facility] [address] [place] [address] Calcium [Mass/Vol] 8.5 mg/dL Low 8.9-11.1 [facility] Comment on above: Performed By: #### 1 8366097, 8312517, 4413877, 0146843, 90773900, 8821082, 8118343 ####[facility] [address] [place] [address] Chloride [Moles/Vol] 93 mmol/L Low 101-111 [facility] Comment on above: Performed By: #### 1 5116041, 2453832, 2154774, 9124412, 80484899, 2608888, 3588436 ####[facility] [address] [place] [address] CO2 [Moles/Vol] 23 mmol/L Normal 21-31 [facility] Comment on above: Performed By: #### 1 5840872, 4981177, 6076600, 6466565, 52815672, 9086937, 1590516 ####[facility] [address] [place] [address] Creatinine [Mass/Vol] 1.2 mg/dL Normal 0.5-1.3 [facility] Comment on above: Performed By: #### 1 2001514, 7958795, 0205647, 6529403, 72311149, 7225518, 1487508 ####[facility] [address] [place] [address] Glucose [Mass/Vol] 456 mg/dL Abnormal 55-199 [facility] Comment on above: Result Comment: Crit ical Result verified by repeat analysis\Critical Result [id number] Called to ARMANDO FRANCOIS AT by RICHARD QUEEN And Read Back For Confirmation at: 11/07/2022 10:19:50 If this glucose result represents a fasting glucose, interpretation should refer to the following reference range: 55-99 mg/dL Performed By: #### 1 5176159, 8421116, 6033869, 3589044, 69699723, 0797572, 9172211 ####[facility] [address] [place] [address] Potassium [Moles/Vol] 4.5 mmol/L Normal 3.5-5.3 [facility] Comment on above: Performed By: #### 1 3907498, 1360504, 7405583, 8707049, 50238454, 4487833, 0946272 ####[facility] [address] [place] [address] Sodium [Moles/Vol] 129 mmol/L Low 135-145 [facility] Comment on above: Performed By: #### 1 7385506, 6243352, 6963985, 6026563, 70156891, 4333880, 5659843 ####[facility] [address] [place] [address] Urea nitrogen [Mass/Vol] 20 mg/dL Normal 5-21 [facility] Comment on above: Performed By: #### 1 2086859, 4666163, 1731050, 3981691, 21332490, 0937104, 7497755 ####[facility] [address] [place] [address] Urea nitrogen/Creatinine [Mass ratio] 17 No Units Normal 10-20 [facility] Comment on above: Performed By: #### 1 7941031, 1422673, 1116262, 6562870, 41294251, 0965255, 6466636 ####[facility] [address] [place] [address] CBC w/ Auto Diffon 3 Erythrocyte distribution width (RBC) [Ratio] 13.9 % Normal 10.9-14.2 [facility] Comment on above: Performed By: #### 1 2786361, 2348223, 5479810, 8905162, 58255123, 8976696, 3733321 ####[facility] [address] [place] [address] Hematocrit (Bld) [Volume fraction] 41.2 % Normal 34.0-46.0 [facility] Comment on above: Performed By: #### 1 0383434, 9531278, 5646882, 5927497, 28383543, 1044669, 6353738 ####[facility] [address] [place] [address] Hemoglobin (Bld) [Mass/Vol] 13.4 g/dL Normal 12.0-16.0 [facility] Comment on above: Performed By: #### 1 7365559, 2214219, 5065559, 9240896, 06276863, 0246118, 6099597 ####[facility] [address] [place] [address] MCH (RBC) [Entitic mass] 30.1 pg Normal 27.0-34.0 [facility] Comment on above: Performed By: #### 1 4660658, 3250638, 0282687, 7383757, 04931183, 6263680, 1107075 ####[address] [place] [address] MCHC (RBC) [Mass/Vol] 32.6 g/dL Normal 31.4-36.0 [facility] Comment on above: Performed By: #### 1 6071065, 2457662, 6821965, 8658190, 71682860, 3714595, 6786004 ####[address] [address] MCV (RBC) [Entitic vol] 92.2 fL Normal 80.0-100.0 [facility] Comment on above: Performed By: #### 1 2743714, 9841412, 7632030, 0773860, 70438058, 8646812, 3854147 ####[address] [address] Platelet mean volume (Bld) [Entitic vol] 8.7 fL Normal 6.4-10.8 [facility] Comment on above: Performed By: #### 1 1339099, 0622199, 4481539, 4415745, 45199353, 5340725, 3134778 ####[address] [address] Platelets (Bld) [#/Vol] 257.0 E9/L Normal 150.0-500.0 [facility] Comment on above: Performed By: #### 1 4213194, 3437238, 1918449, 1544301, 51366246, 9838561, 5046043 ####[address] [address] RBC (Bld) [#/Vol] 4.5 E12/L Normal 4.3-5.9 [facility] Comment on above: Performed By: #### 1 3968281, 4432092, 4855320, 2221730, 44230117, 5844164, 8565540 ####[facility] [address] [place] [address] WBC corrected for nucl RBC Auto (Bld) [#/Vol] 15.6 E9/L High 4.0-11.0 [facility] Comment on above: Result Comment: Slid e reviewed by AG. Performed By: #### 1 3172387, 1163906, 4785828, 9815452, 36454587, 1767978, 1600956 ####[facility] [address] [place] [address] CHEMISTRYOrdered By: SYSTEM SYSTEM on 11-07-2022 Albumin [Mass/Vol] 3.5 g/dL Normal 3.3 - 5.0 gm/dL [facility] Albumin/Globulin [Mass ratio] 0.9 {ratio} Low 1.1 - 2.2 [facility] ALP [Catalytic activity/Vol] 60 [iU]/d Normal 21 - 98 Int._Unit/L [facility] ALT No additional P-5'-P [Catalytic activity/Vol] 16 [iU]/d Normal 6 - 46 Int._Unit/L [facility] Anion gap [Moles/Vol] 18 mmol/L High 6 - 16 mEq/L [facility] AST [Catalytic activity/Vol] 13 [iU]/d Normal 5 - 43 Int._Unit/L [facility] Bilirubin [Mass/Vol] 1.1 mg/dL Normal 0.0 - 1 .1 mg/dL [facility] Bilirubin.direct [Mass/Vol] 0.3 mg/dL Normal 0.1 - 0.4 mg/dL [facility] Bilirubin.indirect [Mass or moles/Vol] 0.8 mg/dL Normal 0.1 - 0.9 mg/dL [facility] Calcium [Mass/Vol] 8.5 mg/dL Low 8.9 - 11. 1 mg/dL [facility] Chloride [Moles/Vol] 93 mmol/L Low 101 - 1 11 mmol/L [facility] CO2 [Moles/Vol] 23 mmol/L Normal 21 - 31 mmol/L [facility] Creatinine [Mass/Vol] 1.2 mg/dL Normal 0.5 - 1.3 mg/dL [facility] GFR/1.73 sq M.predicted among blacks MDRD (S/P/Bld) [Vol rate/Area] 59 mL/min/1.73 m2 Normal >=59mL/min/ 1.73 m2 FT Chem S GFR/1.73 sq M.predicted among non-blacks MDRD (S/P/Bld) [Vol rate/Area] 49 mL/min/1.73 m2 Low >=59mL/min/ 1.73 m2 FT Chem S Globulin (S) [Mass/Vol] 3.9 g/dL Normal 1.4 - 4.0 gm/dL [facility] Glucose [Mass/Vol] 456 mg/dL Invalid Interpretation Code 55 - 199 mg/dL [facility] Comment on above: Result Comment: Crit ical Result verified by repeat analysis\Critical Result [id number] Called to ARMANDO FRANCOIS AT by RICHARD QUEEN And Read Back For Confirmation at: 11/07/2022 10:19:50 Lipase [Catalytic activity/Vol] 25 U/L Normal 13 - 58 unit/L [facility] Potassium [Moles/Vol] 4.5 mmol/L Normal 3.5 - 5.3 mmol/L [facility] Protein [Mass/Vol] 7.4 g/dL Normal 6.0 - 7.8 gm/dL [facility] Sodium [Moles/Vol] 129 mmol/L Low 135 - 145 mmol/L [facility] Urea nitrogen [Mass/Vol] 20 mg/dL Normal 5 - 21 mg/dL [facility] Urea nitrogen/Creatinine [Mass ratio] 17 mg/mg Normal 10 - 20 [facility] CHEMISTRYOrdered By: Michael RUIZ User on 11-07-2022 Glucose [Mass/Vol] 454 mg/dL Invalid Interpretation Code 55 - 99 mg/dL [facility] POC Subsection Comment on above: Result Comment: Francisco cook RN/ Glucose [Mass/Vol] 394 mg/dL High 55 - 99 mg/dL FT POC Subsection POC Device SN [id number] Invalid Interpretation Code [facility] POC Subsection POC Device SN [id number] Invalid Interpretation Code FT POC Subsection POC User ID [id number] Invalid Interpretation Code FT POC Subsection POC User ID [id number] Invalid Interpretation Code FT POC Subsection POC Username GEE CRAIG Invalid Interpretation Code FT POC Subsection POC Username ALEJANDRO DE LUNA Invalid Interpretation Code [facility] POC Subsection Capillary Glucose POCon Glucose [Mass/Vol] 454 mg/dL Abnormal 55-99 [facility] Comment on above: Result Comment: Francisco cook RN/ Performed By: #### 2 [id number] ####[facility] [address] [place] [address] Glucose [Mass/Vol] 394 mg/dL High 55-99 [facility] Comment on above: Performed By: #### 2 [id number] ####[facility] [address] [place] [address] Consent for Treatmenton Consent for Treatment [id number]:1 [id number] Normal [facility] Discharge Instructionson Discharge Instructions [id number]:12 7 Normal [facility] ED Clinical Summaryon 2022 ED Clinical Summary (Inserted Image. Marina ble to display) [address] [address] ED Clinical Summary Person Information Name: JADA GRANADOS/[facility] Age: 42 Years : 1980 Sex: Female Language: Hungarian PCP: BHANU MAR CNP Marital Status: Single Visit Id: Visit Reason: Abdominal pain; Hyperglycemia; ABD PAIN, N/V/D Speciality: Acuity: 2 Enc Type: Emergency Med Service: Emergency Arrival: 11/07/2022 09:18:17 Discharge: 11/07/2022 12:03:53 LOS: 000 02:45 Checkin: 11/07/2022 09:18:17 Checkout: 11/07/2022 12:03:53 Dispo Type: Home (Routine DC) EVENTS: Event Name Event Status Request Date/Time Start Date/Time Complete Date/Time Arrive Complete 11/07/2022 09:18:17 11/07/2022 09:18:17 11/07/2022 09:18:17 Document Home Meds Complete 11/07/2022 09:18:17 11/07/2022 10:46:28 11/07/2022 10:46:28 Triage Complete 11/07/2022 09:18:17 11/07/2022 09:23:48 11/07/2022 09:23:48 Bed Assign Complete 11/07/2022 09:18:17 11/07/2022 09:18:17 11/07/2022 09:18:17 Dr Exam Complete 11/07/2022 09:18:17 11/07/2022 09:20:28 11/07/2022 09:20:28 RN Exam Complete 11/07/2022 09:18:17 11/07/2022 10:05:30 11/07/2022 10:05:30 Registration Complete 11/07/2022 09:20:28 11/07/2022 10:24:22 11/07/2022 10:24:22 Meds Admin Complete 11/07/2022 09:21:52 11/07/2022 09:44:18 Pending Labs Complete 11/07/2022 09:21:52 11/07/2022 10:20:00 Lab Complete 11/07/2022 09:21:52 11/07/2022 10:20:00 Urine Collect Complete 11/07/2022 09:21:52 11/07/2022 10:14:08 Dr Exam Complete 11/07/2022 09:22:22 11/07/2022 09:22:22 11/07/2022 09:22:22 Pending Labs Complete 11/07/2022 09:55:18 11/07/2022 09:55:18 11/07/2022 09:55:19 Pending Labs Complete 11/07/2022 09:55:20 11/07/2022 09:55:20 11/07/2022 10:20:02 Lab Complete 11/07/2022 09:55:20 11/07/2022 09:55:20 11/07/2022 10:20:02 Pending Labs Complete 11/07/2022 09:56:49 11/07/2022 09:56:49 11/07/2022 09:56:49 Pending Labs Inlab 11/07/2022 10:14:09 11/07/2022 10:14:09 Lab Inlab 11/07/2022 10:14:09 11/07/2022 10:14:09 Pending Labs Complete 11/07/2022 10:14:33 11/07/2022 10:14:33 11/07/2022 10:14:42 Lab Complete 11/07/2022 10:14:33 11/07/2022 10:14:33 11/07/2022 10:14:42 Reg Complete Request 11/07/2022 10:24:22 Reg Bed Request Complete 11/07/2022 10:24:23 11/07/2022 10:24:23 11/07/2022 10:24:23 Meds Admin Complete 11/07/2022 10:26:02 11/07/2022 11:09:33 Pending Labs Complete 11/07/2022 11:30:30 11/07/2022 11:30:30 11/07/2022 11:30:31 Meds Admin Complete 11/07/2022 11:35:03 11/07/2022 11:48:04 Discharge Complete 11/07/2022 11:42:04 11/07/2022 12:04:02 11/07/2022 12:04:02 Transfer Complete 11/07/2022 12:04:02 11/07/2022 12:04:02 11/07/2022 12:04:02 ADDRESS: [address] [place] [id number] PHYS DOC NOTES: MEDICAL INFORMATION: Prescriptions Given: New Medications Printed Prescriptions cephalexin (Keflex 500 mg Cap) 1 Capsules By Mouth every 12 hours for 7 Days. Refills: 0. ondansetron (Zofran ODT 4 mg Tab-Dis) 1 Tablets By Mouth 3 times a day. Refills: 0. Medications to Continue with No Changes Other Medications atorvastatin (atorvastatin 20 mg Tab) 1 Tablets By Mouth every day. buPROPion (buPROPion 300 mg/24 hours ER Tab) 1 Tablets By Mouth every day. fluoxetine (FLUoxetine 20 mg Cap) 3 Capsules By Mouth every day. fluticasone-salmeterol (fluticasone-salmeterol 232 mcg-14 mcg/inh inhalation powder) 1 Puffs Inhalation 2 times a day. hydrOXYzine (hydrOXYzine hydrochloride 50 mg oral tablet) 1 Tablets By Mouth 4 times a day as needed as needed for anxiety. insulin aspart (NovoLOG 100 units/mL injectable solution) 4 Units Subcutaneous before meals. insulin glargine (Lantus 100 units/mL Injection-Insulin) 45 - 50 unis(s) Subcutaneous once a day (at bedtime). losartan (losartan 25 mg Tab) 1 Tablets By Mouth every day. metformin (metformin 500 mg Tab) 1 Tablets By Mouth 2 times a day. pantoprazole (Pantoprazole [address] Tab) 1 Tablets By Mouth every day. prazosin (prazosin 1 mg Cap) 3 Capsules By Mouth at bedtime. pregabalin (pregabalin 100 mg Cap) 1 Capsules By Mouth 3 times a day. PATIENT EDUCATION INFORMATION: Instructions: Hyperglycemia; Urinary Tract Infection, Adult Follow up: With: Address: When: BHANU Young, [facility] [address] [place], [place] [id number] Business (1) In 3 days 11/10/2022 DIAGNOSIS: Diarrhea, unspecified; Hyperglycemia; Nausea vomiting and diarrhea; UTI symptoms Normal [facility] ED Patient Education Noteon 11-07-2022 ED Patient Education Note Obstetrics and Gynecology Hyperglycemia Hyperglycemia occurs when the level of sugar (glucose) in the blood is too high. Glucose is a type of sugar that provides the body's main source of energy. Certain hormones (insulin and glucagon) control the level of glucose in the blood. Insulin lowers blood glucose, and glucagon increases blood glucose. Hyperglycemia can result from having too little insulin in the bloodstream, or from the body not responding normally to insulin. Hyperglycemia occurs most often in people who have diabetes (diabetes mellitus), but it can happen in people who do not have diabetes. It can develop quickly, and it can be life-threatening if it causes you to become severely dehydrated (diabetic ketoacidosis or hyperglycemic hyperosmolar state). Severe hyperglycemia is a medical emergency. What are the causes? If you have diabetes, hyperglycemia may be caused by: ? Diabetes medicine. ? Medicines that increase blood glucose or affect your diabetes control. ? Not eating enough, or not eating often enough. ? Changes in physical activity level. ? Being sick or having an infection. If you have prediabetes or undiagnosed diabetes: ? Hyperglycemia may be caused by those conditions. If you do not have diabetes, hyperglycemia may be caused by: ? Certain medicines, including steroid medicines, beta-blockers, epinephrine, and thiazide diuretics. ? Stress. ? Serious illness. ? Surgery. ? Diseases of the pancreas. ? Infection. What increases the risk? Hyperglycemia is more likely to develop in people who have risk factors for diabetes, such as: ? Having a family member with diabetes. ? Having a gene for type 1 diabetes that is passed from parent to child (inherited). ? Living in an area with cold weather conditions. ? Exposure to certain viruses. ? Certain conditions in which the body's disease-fighting (immune) system attacks itself (autoimmune disorders). ? Being overweight or obese. ? Having an inactive (sedentary) lifestyle. ? Having been diagnosed with insulin resistance. ? Having a history of prediabetes, gestational diabetes, or polycystic ovarian syndrome (PCOS). ? Being of Irish-Mozambican, -Irish, /, or / descent. What are the signs or symptoms? Hyperglycemia may not cause any symptoms. If you do have symptoms, they may include early warning signs, such as: ? Increased thirst. ? Hunger. ? Feeling very tired. ? Needing to urinate more often than usual. ? Blurry vision. Other symptoms may develop if hyperglycemia gets worse, such as: ? Dry mouth. ? Loss of appetite. ? Fruity-smelling breath. ? Weakness. ? Unexpected or rapid weight gain or weight loss. ? Tingling or numbness in the hands or feet. ? Headache. ? Skin that does not quickly return to normal after being lightly pinched and released (poor skin turgor). ? Abdominal pain. ? Cuts or bruises that are slow to heal. How is this diagnosed? Hyperglycemia is diagnosed with a blood test to measure your blood glucose level. This blood test is usually done while you are having symptoms. Your health care provider may also do a physical exam and review your medical history. You may have more tests to determine the cause of your hyperglycemia, such as: ? A fasting blood glucose (FBG) test. You will not be allowed to eat (you will fast) for at least 8 hours before a blood sample is taken. ? An A1c (hemoglobin A1c) blood test. This provides information about blood glucose control over the previous 2?3 months. ? An oral glucose tolerance test (OGTT). This measures your blood glucose at two times: ? After fasting. This is your baseline blood glucose level. ? Two hours after drinking a beverage that contains glucose. How is this treated? Treatment depends on the cause of your hyperglycemia. Treatment may include: ? Taking medicine to regulate your blood glucose levels. If you take insulin or other diabetes medicines, your medicine or dosage may be adjusted. ? Lifestyle changes, such as exercising more, eating healthier foods, or losing weight. ? Treating an illness or infection, if this caused your hyperglycemia. ? Checking your blood glucose more often. ? Stopping or reducing steroid medicines, if these caused your hyperglycemia. If your hyperglycemia becomes severe and it results in hyperglycemic hyperosmolar state, you must be hospitalized and given IV fluids. Follow these instructions at home: General instructions ? Take ljbj-iis-yszbhla and prescription medicines only as told by your health care provider. ? Do not use any products that contain nicotine or tobacco, such as cigarettes and e-cigarettes. If you need help quitting, ask your health care provider. ? Limit alcohol intake to no more than 1 drink per day for non women and 2 drinks per day for men. One drink equals 12 oz of beer, 5 oz of wine, or 1? oz of hard liquor (more content not included)... Normal [facility] ED Patient Summaryon 023 ED Patient Summary (Inserted Image. Marina ble to display) [place] [id number] Patient Discharge Instructions Person Information Name: JADA GRANADOS Age: 42 Years Arrival Date: 11/07/2022 09:18:17 Discharge Diagnosis: Diarrhea, unspecified; Hyperglycemia; Nausea vomiting and diarrhea; UTI symptoms Primary Care Physician: BHANU MAR CNP Provider Information Primary Provider: Srinivas Easley DO Advanced Lead Portfolio Manager:Shawn Francois PA-C The exam and treatment you received in the Emergency Department were for an urgent problem and are not intended as complete care. It is important that you follow up with a doctor, nurse practitioner, or physician?s family readiness support assistant for ongoing care. If your symptoms become worse or you do not improve as expected and you are unable to reach your usual health care provider, you should return to the Emergency Department. We are available 24 hours a day. JADA GRANADOS has been given the following list of patient education materials, prescriptions and follow-up instructions: Follow-up Instructions: With: Address: When: BHANU MAR [facility], [address] [place] [id number] Business (1) In 3 days 11/10/2022 In the event that this physician does not participate in your insurance network, please consult with your insurance company to find a nearby participating provider. Patient Education Materials: Hyperglycemia; Urinary Tract Infection, Adult A MESSAGE TO ALL PATIENTS REGARDING OPIOIDS PRESCRIPTION OPIOIDS: WHAT YOU NEED TO KNOW Prescription opioids can be used to help relieve jboonlsr-kf-hqtwoi pain and are often prescribed following a surgery or injury, or for certain health conditions. These medications can be an important part of the treatment but also come with serious risks. It is important to work with your healthcare provider to make sure you are getting the safest, most effective care. WHAT ARE THE RISKS AND SIDE EFFECTS OF OPIOID USE? Prescription opioids carry serious risks of addiction and overdose, especially with prolonged use. An opioid overdose, often marked by slowed breathing, can cause sudden . The use of prescription opioids can have a number of side effects as well, even when taken as directed: ? Tolerance?meaning you might need to take more of the medication for the same pain relief ? Physical dependence?meaning you have symptoms of withdrawal when a medication is stopped ? Increased sensitivity to pain ? Constipation ? Nausea, vomiting, and dry mouth ? Sleepiness and dizziness ? Confusion ? Depression ? Low levels of testosterone that can result in lower sex drive, energy, and strength ? Itching and sweating RISKS ARE GREATER WITH: ? History of drug misuse, substance use disorder, or overdose ? Mental health conditions (such as depression or anxiety) ? Sleep apnea ? Older age (65 years and older) ? Avoid alcohol while taking prescription opioids. Also, unless specifically advised by your health care provider, medications to avoid include: ? Benzodiazepines (such as Xanax or Valium) ? Muscle relaxants (such as Soma or Flexeril) ? Hypnotics (such as Ambien or Lunesta) ? Other prescription opioids KNOW YOUR OPTIONS Talk to your health care provider about ways to manage your pain that don?t involve prescription opioids. Some of these options may actually work better and have fewer risks and side effects. Options may include: ? Pain relievers such as acetaminophen, ibuprofen, and naproxen ? Some medication that are also used for depression or seizures ? Physical therapy and exercise ? Cognitive behavioral therapy, a psychological, goal-directed approach, in which patients learn how to modify physical, behavioral, and emotional triggers of pain and stress. IF YOU ARE PRESCRIBED OPIOIDS FOR PAIN: ? Never take opioids in greater amounts or more often than prescribed. ? Follow up with your primary health care provider. o Work together to create a plan on how to manage your pain. o Talk about ways to help manage your pain that don?t involve prescription opioids. o Talk about any and all concerns and side effects. ? Help prevent misuse and abuse o Never sell or share prescription opioids. o Never use another person?s prescription opioids. ? Store prescription opioids in a secure place and out of reach of others (this may include visitors, children, friends, and family). ? Safely dispose of unused prescription opioids: Find your community drug take-back program or your pharmacy mail-back program, or flush them down the toilet, following guidance from the Food and Drug Administration (www.fda.gov/Drugs/Resour cesForYou). ? Visit www.cdc.gov/drugoverdose to learn about the risks of opioids abuse and overdose. ? If you believe you may be struggling with addiction, tell your health assisted living care manager and ask fo (more content not included)... Normal [facility] EMS Documentationon 11-08-19 EMS Documentation [id number] Normal [facility] HEMATOLOGYOrdered By: SYSTEM SYSTEM on 11-07-2022 Basophils/100 WBC (Bld) 0.2 % Normal 0.0 - 2.0 % [facility] HemeAutoSS Basophils/Leukocytes Auto (Bld) [Pure # fraction] 0.0 E9/L Normal 0.0 - 0.2 E9/L [facility] HemeAutoSS Eosinophils/100 WBC (Bld) 0.0 % Normal 0.0 - 8.0 % [facility] HemeAutoSS Eosinophils/Leukocyt es Auto (Bld) [Pure # fraction] 0.0 E9/L Normal 0.0 - 0.5 E9/L [facility] HemeAutoSS Lymphocytes/100 WBC (Bld) 7.8 % Low 14.0 - 50.0 % [facility] HemeAutoSS Lymphocytes/Leukocyt es Auto (Bld) [Pure # fraction] 1.2 E9/L Normal 1.0 - 4.0 E9/L [facility] HemeAutoSS Monocytes/100 WBC (Bld) 5.8 % Normal 4.0 - 14.0 % [facility] HemeAutoSS Monocytes/Leukocytes Auto (Bld) [Pure # fraction] 0.9 E9/L Normal 0.2 - 1.0 E9/L [facility] HemeAutoSS Neutrophils/100 WBC (Bld) 86.2 % High 36.0 - 75.0 % [facility] HemeAutoSS Neutrophils/Leukocyt es Auto (Bld) [Pure # fraction] 13.4 E9/L High 2.0 - 7.5 E9/L [facility] HemeAutoSS HEMATOLOGYOrdered By: Laura Mario on 11-07-2022 Erythrocyte distribution width (RBC) [Ratio] 13.9 % Normal 10.9 - 14.2 % [facility] HemeAutoSS Hematocrit (Bld) [Volume fraction] 41.2 % Normal 34.0 - 46.0 % [facility] HemeAutoSS Hemoglobin (Bld) [Mass/Vol] 13.4 g/dL Normal 12.0 - 16.0 gm/dL [facility] HemeAutoSS MCH (RBC) [Entitic mass] 30.1 pg Normal 27.0 - 34.0 pg [facility] HemeAutoSS MCHC (RBC) [Mass/Vol] 32.6 g/dL Normal 31.4 - 36.0 gm/dL [facility] HemeAutoSS MCV (RBC) [Entitic vol] 92.2 fL Normal 80.0 - 100.0 fL [facility] HemeAutoSS Platelet mean volume (Bld) [Entitic vol] 8.7 fL Normal 6.4 - 10.8 fL [facility] HemeAutoSS Platelets (Bld) [#/Vol] 257.0 E9/L Normal 150.0 - 500.0 E9/L [facility] HemeAutoSS RBC (Bld) [#/Vol] 4.5 E12/L Normal 4.3 - 5.9 E12/L [facility] HemeAutoSS WBC corrected for nucl RBC Auto (Bld) [#/Vol] 15.6 E9/L High 4.0 - 11.0 E9/L [facility] HemeAutoSS Comment on above: Result Comment: Slid e reviewed by Hep Func Panelon 11-07-2022 Albumin [Mass/Vol] 3.5 g/dL Normal 3.3-5.0 [facility] Comment on above: Performed By: #### 1 [id number], 0822447, 1018102, 1283523, 16115371, 7881885, 2091814 ####[facility] [address] [place] [address] Albumin/Globulin (S) [Mass conc ratio] 0.9 Low 1.1-2.2 [facility] Comment on above: Performed By: #### 1 2235329, 9473547, 1504003, 2362204, 68072475, 8430442, 9462091 ####[facility] [address] [place] [address] ALP [Catalytic activity/Vol] 60 Int._Unit/L Normal 21-98 [facility] Comment on above: Performed By: #### 1 2516032, 8061738, 7464781, 9737175, 60853528, 0199702, 9406933 ####[facility] [address] [place] [address] ALT No additional P-5'-P [Catalytic activity/Vol] 16 Int._Unit/L Normal 6-46 [facility] Comment on above: Performed By: #### 1 9765161, 3141433, 4577051, 0323216, 41387832, 3281923, 6814390 ####[facility] [address] [place] [address] AST [Catalytic activity/Vol] 13 Int._Unit/L Normal 5-43 [facility] Comment on above: Performed By: #### 1 0703096, 1221381, 3470743, 3135989, 53081644, 2962062, 5246741 ####[address] [place] [address] Bilirubin [Mass/Vol] 1.1 mg/dL Normal 0.0-1.1 [facility] Comment on above: Performed By: #### 1 4970306, 6987172, 3585078, 8020973, 05644552, 7797667, 8656951 ####[address] [place] [address] Bilirubin.direct [Mass/Vol] 0.3 mg/dL Normal 0.1-0.4 [facility] Comment on above: Performed By: #### 1 7780060, 1528407, 4833552, 9933060, 53230521, 0704023, 5935812 ####[address] Bilirubin.indirect [Mass or moles/Vol] 0.8 mg/dL Normal 0.1-0.9 [facility] Comment on above: Performed By: #### 1 3262823, 9641443, 9274115, 1007289, 69749057, 4747290, 7513272 ####[address] [address] Globulin (S) [Mass/Vol] 3.9 g/dL Normal 1.4-4.0 [facility] Comment on above: Performed By: #### 1 9031016, 7741591, 4889952, 9553036, 85722095, 6547658, 2904631 ####[address] [place] [address] Protein [Mass/Vol] 7.4 g/dL Normal 6.0-7.8 [facility] Comment on above: Performed By: #### 1 7114295, 3931084, 0090160, 9693116, 63977885, 5618165, 5912848 ####[address] [address] Lipase Levelon 11-07-2022 Lipase [Catalytic activity/Vol] 25 U/L Normal 13-58 [facility] Comment on above: Performed By: #### 1 0537097, 7757813, 6303448, 4712002, 81754759, 8525108, 0621926 ####[facility] [address] [place] [address] Pre-Arrival Noteon Pre-Arrival Note Pre-Arrival Summary Name: , Current Date: 11/07/2022 09:19:00 EST Gender: Female Date of : Age: 42 Pre-Arrival Type: EMS ETA: 11/07/2022 09:39:00 EST Primary Care Physician: Presenting Problem: high blgl nausea Pre-Arrival User: Rosendo Freed Referring Source: Location: [place] Completion Date/Time: 11/07/2022 09:09:00 [facility] Emergency Department Pre-Hospital Report Form ____ Vital Signs: Pre-Hospital Report: Treatment in Route: Response to Treatment: Misc. Issues: Normal [facility] SEROLOGYOrdered By: Sarah Galeano on 11-07-2022 Beta hCG Ql Negative (11/07/22 9:51 AM) Normal [facility] Man Sero UA With Cult Reflexon 2022 Bacteria LM Ql (Urine sed) 2+ /HPF Abnormal Trace [facility] Comment on above: Performed By: #### 2 924880, 78330619 ####[facility] [address] [place] [address] Bilirubin Ql (U) Negative Normal Negative [facility] Comment on above: Performed By: #### 2 008134, 71888734 ####[facility] [address] [place] [address] Clarity (U) SL CLOUDY Invalid Interpretation Code [facility] Comment on above: Performed By: #### 2 902326, 52553130 ####[facility] [address] [place] [address] Color (U) YELLOW Normal Yellow [facility] Comment on above: Performed By: #### 2 100789, 69271198 ####[facility] [address] [place] [address] Epithelial cells.squamous LM.HPF (Urine sed) [#/Area] 0-2 Normal 0-2 [facility] Comment on above: Performed By: #### 2 540562, 41589163 ####[facility] [address] [place] [address] Glucose Test strip (U) [Mass/Vol] 3+ Abnormal Negative [facility] Comment on above: Performed By: #### 2 277578, 18634638 ####[facility] [address] [place] [address] Hemoglobin Ql (U) 1+ Abnormal Negative [facility] Comment on above: Performed By: #### 2 264709, 60555742 ####[facility] [address] [place] [address] Ketones (U) [Mass/Vol] 1+ Abnormal Negative [facility] Comment on above: Performed By: #### 2 719150, 20713804 ####[facility] [address] [place] [address] [place].plasma/Lithi um.RBC (Bld) [Mass ratio] >30 Abnormal 0-3 [facility] Comment on above: Performed By: #### 2 495140, 54396289 ####[facility] [address] [place] [address] Mucus Ql (Urine sed) 1+ Normal Fish [facility] Comment on above: Performed By: #### 2 475263, 63637451 ####[facility] [address] [place] [address] Nitrite Ql (U) Negative Normal Negative [facility] Comment on above: Performed By: #### 2 562573, 77102898 ####[facility] [address] [place] [address] pH (U) 6.0 [pH] Invalid Interpretation Code 5.0-9.0 [facility] Comment on above: Performed By: #### 2 805197, 90361870 ####[address] [address] Protein (U) [Mass/Vol] TRACE Abnormal Negative [facility] Comment on above: Performed By: #### 2 015094, 92805708 ####[address] [address] Specific gravity (U) [Rel density] 1.015 Invalid Interpretation Code 1.005-1.030 [facility] Comment on above: Performed By: #### 2 126504, 75250448 ####[address] [address] Type of Urine collection method Clean Catch Normal [facility] Comment on above: Performed By: #### 2 613847, 50323730 ####[address] [address] Urobilinogen Qn (U) 0.2 {Jesus'U}/dL Normal 0.0-1.0 [facility] Comment on above: Performed By: #### 2 727239, 72406611 ####[facility] [address] [place] [address] WBC Auto Ql (U) Negative Normal Negative [facility] Comment on above: Performed By: #### 2 361336, 14482266 ####[address] [address] WBC LM.HPF (Urine sed) [#/Area] /[HPF] Abnormal 0-5 [facility] Comment on above: Performed By: #### 2 590969, 87565312 ####[address] [address] URINALYSISOrdered By: Tari Galeano on 11-07-2022 Bacteria LM Ql (Urine sed) 2+ /HPF Invalid Interpretation Code Trace/HPF [facility] UA Auto SS Bilirubin Ql (U) Negative (11/07/22 9:40 AM) Normal Negative [facility] UA Auto SS Clarity (U) SL CLOUDY Invalid Interpretation Code [facility] UA Auto SS Color (U) Yellow (11/07/22 9:40 AM) Normal Yellow [facility] UA Auto SS Epithelial cells.squamous LM.HPF (Urine sed) [#/Area] 0-2 /HPF Normal 0-2/HPF [facility] UA Auto SS Glucose Test strip (U) [Mass/Vol] 3+ *ABN* (11/07/22 9:40 AM) Invalid Interpretation Code Negative [facility] UA Auto SS Hemoglobin Ql (U) 1+ *ABN* (11/07/22 9:40 AM) Invalid Interpretation Code Negative [facility] UA Auto SS Ketones (U) [Mass/Vol] 1+ *ABN* (11/07/22 9:40 AM) Invalid Interpretation Code Negative [facility] UA Auto SS [place].plasma/Lithi um.RBC (Bld) [Mass ratio] >30 /HPF Invalid Interpretation Code 0-3/HPF [facility] UA Auto SS Mucus Ql (Urine sed) 1+ (11/07/22 9:40 AM) Normal [facility] UA Auto SS Nitrite Ql (U) Negative (11/07/22 9:40 AM) Normal Negative [facility] UA Auto SS pH (U) 6.0 *NA* (11/07/22 9:40 AM) Invalid Interpretation Code 5.0 - 9.0 [facility] UA Auto SS Protein (U) [Mass/Vol] Trace *ABN* (11/07/22 9:40 AM) Invalid Interpretation Code Negative [facility] UA Auto SS Specific gravity (U) [Rel density] 1.015 *NA* (11/07/22 9:40 AM) Invalid Interpretation Code 1.005 - 1.030 [facility] UA Auto SS UA Spec Desc Clean Catch (11/07/22 9:40 AM) Normal [facility] UA Auto SS Urobilinogen Qn (U) 0.0128248 {Jesus'U}/dL Normal 0.0 - 1.0 EU/dL [facility] UA Auto SS WBC Auto Ql (U) Negative (11/07/22 9:40 AM) Normal Negative [facility] UA Auto SS WBC LM.HPF (Urine sed) [#/Area] /[HPF] Invalid Interpretation Code 0-5/HPF [facility] UA Auto SS eGFRon 11-07-2022 GFR/1.73 sq M.predicted among blacks MDRD (S/P/Bld) [Vol rate/Area] 59 mL/min/1.73 m2 Normal >=59 [facility] Comment on above: Order Comment: Order added by Discern Expert. Result Comment: eGFR is race adjusted. AA=. Performed By: #### 1 8764449, 3231764, 0847838, 1395001, 67383854, 8988447, 5689628 ####[facility] [address] [place] [address] GFR/1.73 sq M.predicted among non-blacks MDRD (S/P/Bld) [Vol rate/Area] 49 mL/min/1.73 m2 Low >=59 [facility] Comment on above: Order Comment: Order added by Discern Expert. Result Comment: Math Teacher enid kidney disease could be indicated at eGFR's of less than 60 mL/min/1.73m2. Kidney failure is indicated at less than 15 mL/min/1.73m2. Performed By: #### 1 0696521, 7256102, 3151082, 8382092, 57904680, 2700410, 6526490 ####[facility] [address] [place] [address] Clinical Event Note-ED Post Discharge Result Follow Up: Posion 10-18-2022 Clinical Event Note-ED Post Discharge Result Follow Up: Posi Normal [facility] Clinical Event Note-Overnigh t pulse ox studyon 10-18-2022 Clinical Event Note-Overnight pulse ox study Normal [facility] GLUCOSE-POCTon 10-18-2022 Glucose [Mass/Vol] 91 mg/dL Normal 74 - 99 [facility] Comment on above: Performed By: #### G MAURA ####[address] [address] Glucose [Mass/Vol] 92 mg/dL Normal 74 - 99 [facility] Comment on above: Performed By: #### G MAURA ####[address] [address] Clinical Event Note-Discharg e to be held todayon 10-17-2022 Clinical Event Note-Discharge to be held today Normal [facility] Discharge [id number] 023 Discharge Profile2 Normal [facility] GLUCOSE-POCTon 10-17-2022 Glucose [Mass/Vol] 154 mg/dL High 74 - 99 [facility] Comment on above: Performed By: #### G MAURA ####[address] [address] Glucose [Mass/Vol] 181 mg/dL High 74 - 99 [facility] Comment on above: Performed By: #### G MAURA ####[address] [address] Glucose [Mass/Vol] 144 mg/dL High 74 - 99 [facility] Comment on above: Performed By: #### G MAURA ####[address] [address] Glucose [Mass/Vol] 138 mg/dL High 74 - 99 [facility] Comment on above: Performed By: #### G MAURA ####[address] [address] Order Reconciliationon 10-17 Order Reconciliation Normal [facility] BASIC METABOLIC PANELon - Anion gap [Moles/Vol] 11 mmol/L Normal 10 - [address] [facility] Comment on above: Performed By: #### B MP ####[address] [address] Calcium [Mass/Vol] 8.4 mg/dL Low 8.6 - 10.3 [facility] Comment on above: Performed By: #### B MP ####[address] [address] Chloride [Moles/Vol] 103 mmol/L Normal 98 - 107 [facility] Comment on above: Performed By: #### B MP ####[address] [address] Creatinine [Mass/Vol] 0.71 mg/dL Normal 0.50 - 1.[address] [facility] Comment on above: Performed By: #### B MP ####[place] [address] eGFR FEMALE >90 Normal >[address] [facility] Comment on above: Result Comment: CALC ULATIONS OF ESTIMATED GFR ARE PERFORMED USING THE 2020 CKD-EPI STUDY REFIT EQUATION WITHOUT THE RACE VARIABLE FOR THE IDMS-TRACEABLE CREATININE METHODS.https://jasn.asnjournals.org/content/early//ASN .2019790162 Performed By: #### B MP ####[place] [address] Glucose [Mass/Vol] 124 mg/dL High 74 - 99 [facility] Comment on above: Performed By: #### B MP ####[place] [address] HCO3 (Bld) [Moles/Vol] 26 mmol/L Normal 21 - [address] [facility] Comment on above: Performed By: #### B MP ####[place] [address] Potassium [Moles/Vol] 3.7 mmol/L Normal 3.5 - 5.[address] [facility] Comment on above: Performed By: #### B MP ####[place] [address] Sodium [Moles/Vol] 136 mmol/L Normal 136 - 145 [facility] Comment on above: Performed By: #### B MP ####[place] [address] Urea nitrogen [Mass/Vol] 13 mg/dL Normal 6 - [address] [facility] Comment on above: Performed By: #### B MP ####[place] [address] CBC AND DIFFERENTIALon 10-16 % AUTOMATED IMMATURE GRAN 0.2 % Normal 0.0 - 0.[address] [facility] Comment on above: Result Comment: Alla ture Granulocyte Count (IG) includes promyelocytes, myelocytes and metamyelocytes but does not include bands. Percent differential counts (%) should be interpreted in the context of the absolute cell counts (cells/L). Performed By: #### C BCDF ####[address] [address] Basophils (Bld) [#/Vol] 0.07 10*3/uL Normal 0.00 - 0.[address] [facility] Comment on above: Performed By: #### C BCDF ####[address] [address] Basophils/100 WBC (Bld) 0.9 % Normal 0.0 - 2.[address] [facility] Comment on above: Performed By: #### C BCDF ####[address] [address] Eosinophils (Bld) [#/Vol] 0.25 10*3/uL Normal 0.00 - 0.[address] [facility] Comment on above: Performed By: #### C BCDF ####[address] [address] Eosinophils/100 WBC (Bld) 3.1 % Normal 0.0 - 6.[address] [facility] Comment on above: Performed By: #### C BCDF ####[address] [address] Erythrocyte distribution width (RBC) [Ratio] 13.2 % Normal 11.5 - 14.[address] [facility] Comment on above: Performed By: #### C BCDF ####[address] [address] Hematocrit (Bld) [Volume fraction] 39.6 % Normal 36.0 - 46.[address] [facility] Comment on above: Performed By: #### C BCDF ####[address] [address] Hemoglobin (Bld) [Mass/Vol] 12.9 g/dL Normal 12.0 - 16.[address] [facility] Comment on above: Performed By: #### C BCDF ####[address] [address] Lymphocytes (Bld) [#/Vol] 2.55 10*3/uL Normal 1.20 - 4.[address] [facility] Comment on above: Performed By: #### C BCDF ####[address] [address] Lymphocytes/100 WBC (Bld) 31.3 % Normal 13.0 - 44.[address] [facility] Comment on above: Performed By: #### C BCDF ####[address] [address] MCHC (RBC) [Mass/Vol] 32.6 g/dL Normal 32.0 - 36.[address] [facility] Comment on above: Performed By: #### C BCDF ####[address] [address] MCV (RBC) [Entitic vol] 93 fL Normal 80 - [address] [facility] Comment on above: Performed By: #### C BCDF ####[address] [address] Monocytes (Bld) [#/Vol] 0.55 10*3/uL Normal 0.10 - 1.[address] [facility] Comment on above: Performed By: #### C BCDF ####[address] [address] Monocytes/100 WBC (Bld) 6.8 % Normal 2.0 - 10.[address] [facility] Comment on above: Performed By: #### C BCDF ####[address] [address] Neutrophils (Bld) [#/Vol] 4.70 10*3/uL Normal 1.20 - 7.[address] [facility] Comment on above: Result Comment: Perc ent differential counts (%) should be interpreted in the context of the absolute cell counts (cells/L). Performed By: #### C BCDF ####[address] [address] Neutrophils/100 WBC (Bld) 57.7 % Normal 40.0 - 80.[address] [facility] Comment on above: Performed By: #### C BCDF ####[address] [address] Platelets (Bld) [#/Vol] 235 10*3/uL Normal 150 - [address] [facility] Comment on above: Performed By: #### C BCDF ####[address] [address] RBC 4.24 x10E12/L Normal 4.00 - 5.[address] [facility] Comment on above: Performed By: #### C BCDF ####[address] [address] WBC (Bld) [#/Vol] 8.1 10*3/uL Normal 4.4 - 11.3 [facility] Comment on above: Performed By: #### C BCDF ####[place] [id number] Daily Progress Note-Medicine on 10-16-2022 Daily Progress Note-Medicine Normal [facility] GLUCOSE-POCTon 10-16-2022 Glucose [Mass/Vol] 270 mg/dL High 74 - 99 [facility] Comment on above: Performed By: #### G MAURA ####[address] [address] Glucose [Mass/Vol] 166 mg/dL High 74 - 99 [facility] Comment on above: Performed By: #### G MAURA ####[address] [address] Glucose [Mass/Vol] 172 mg/dL High 74 - 99 [facility] Comment on above: Performed By: #### G MAURA ####[address] [address] HEMOGLOBIN A1Con 10-16-2022 Glucose [Mass/Vol] 217 mg/dL Normal [facility] Comment on above: Performed By: #### H BA1E ####[address] [address] HbA1c (Bld) [Mass fraction] 9.2 % Abnormal [facility] Comment on above: Result Comment: Diag nosis of Diabetes-Adults Non-Diabetic: < or = 5.6% Increased risk for developing diabetes: 5.7-6.4% Diagnostic of diabetes: > or = 6.5%. Monitoring of Diabetes Age (y) Therapeutic Goal (%) Adults: >18 <7.0 Pediatrics: 13-18 <7.5 7-12 <8.0 0- 6 7.5-8.5 [employer]. Diabetes Care 33(S1), Sep 2009. Performed By: #### H BA1E ####[address] [address] Admission Risk Screen - Adul ton 10-15-2022 Admission Risk Screen - Adult Normal [facility] BASIC METABOLIC PANELon Anion gap [Moles/Vol] 7 mmol/L Low 10 - [address] [facility] Comment on above: Performed By: #### B MP ####[address] [address] Calcium [Mass/Vol] 8.7 mg/dL Normal 8.6 - 10.3 [facility] Comment on above: Performed By: #### B MP ####[address] [address] Chloride [Moles/Vol] 101 mmol/L Normal 98 - 107 [facility] Comment on above: Performed By: #### B MP ####[address] [address] Creatinine [Mass/Vol] 0.81 mg/dL Normal 0.50 - 1.[address] [facility] Comment on above: Performed By: #### B MP ####[address] [address] eGFR FEMALE >90 Normal >[address] [facility] Comment on above: Result Comment: CALC ULATIONS OF ESTIMATED GFR ARE PERFORMED USING THE 2020 CKD-EPI STUDY REFIT EQUATION WITHOUT THE RACE VARIABLE FOR THE IDMS-TRACEABLE CREATININE METHODS.https://jasn.asnjournals.org/content//ASN .3656090262 Performed By: #### B MP ####[address] [address] Glucose [Mass/Vol] 219 mg/dL High 74 - 99 [facility] Comment on above: Performed By: #### B MP ####[employer] [address] HCO3 (Bld) [Moles/Vol] 32 mmol/L Normal 21 - [address] [facility] Comment on above: Performed By: #### B MP ####[address] [address] Potassium [Moles/Vol] 4.2 mmol/L Normal 3.5 - 5.[address] [facility] Comment on above: Performed By: #### B MP ####[address] [address] Sodium [Moles/Vol] 136 mmol/L Normal 136 - 145 [facility] Comment on above: Performed By: #### B MP ####[address] [address] Urea nitrogen [Mass/Vol] 14 mg/dL Normal 6 - [address] [facility] Comment on above: Performed By: #### B MP ####[address] [address] Covid 19 Resultson 3 SARS-CoV-2 (COVID-19) RNA GLENNA+probe Ql (Unsp spec) Normal [facility] Daily Progress Note-Medicine on 10-15-2022 Daily Progress Note-Medicine Normal [facility] Discharge Planning [id number] 10-15-2022 Discharge Planning Note2 Normal [facility] GLUCOSE-POCTon 10-15-2022 Glucose [Mass/Vol] 498 mg/dL High 74 - 99 [facility] Comment on above: Result Comment: RN/M D NOTIFIED Performed By: #### G MAURA ####[address] [address] Glucose [Mass/Vol] 180 mg/dL High 74 - 99 [facility] Comment on above: Performed By: #### G MAURA ####[address] [address] [address] Glucose [Mass/Vol] 138 mg/dL High 74 - 99 [facility] Comment on above: Performed By: #### G MAURA ####[address] [address] Glucose [Mass/Vol] 151 mg/dL High 74 - [address] [place] [address] Comment on above: Performed By: #### G MAURA ####[place] [id number] [place] [address] Glucose [Mass/Vol] 239 mg/dL High 74 - [address] [place] [address] Comment on above: Performed By: #### G MAURA ####[address] [address] Glucose [Mass/Vol] 280 mg/dL High 74 - [address] [place] [address] Comment on above: Performed By: #### G MAURA ####[address] [address] Glucose [Mass/Vol] 172 mg/dL High 74 - [address] [place] [address] Comment on above: Performed By: #### G MAURA ####[address] [address] Glucose [Mass/Vol] 105 mg/dL High - [address] [place] [address] Comment on above: Performed By: #### G MAURA ####[address] [address] MAGNESIUMon 10-15-2022 Magnesium [Mass/Vol] 1.85 mg/dL Normal 1.60 - 2.40 [facility] Comment on above: Performed By: #### M G ####[address] [address] Order Reconciliationon 10-15 Order Reconciliation Normal [facility] PHOSPHORUSon 10-15-2022 Phosphate [Mass/Vol] 3.3 mg/dL Normal 2.5 - 4.9 [facility] Comment on above: Result Comment: The performance characteristics of phosphorus testing in heparinized plasma have been validated by the individual laboratory site where testing is performed. Testing on heparinized plasma is not approved by the FDA; however, such approval is not necessary. Performed By: #### P HOS ####[address] [address] Patient Profile - Adult v2on 10-15-2022 Patient Profile - Adult v2 Normal [facility] BETA-HYDROXYBUTYRATEon 02-07 -2023 BETA-HYDROXYBUTYRATE 0.50 mmol/L High 0.02 - 0.27 [facility] Comment on above: Result Comment: The beta-hydroxybutyrate test performance characteristics have been validated by [facility] laboratory. This test has not been approved by the FDA; however, such approval is not necessary. Performed By: #### B HB2 ####[address] [address] BLOOD CULTURE, BACTERIALon 0 10-14-2022 BLOOD CULTURE, BACTERIAL Normal [facility] Comment on above: Performed By: #### B LDC ####[id number] [place] [address] CBC AND DIFFERENTIALon 10-14 % AUTOMATED IMMATURE GRAN 0.4 % Normal 0.0 - 0.[address] [facility] Comment on above: Result Comment: Alla ture Granulocyte Count (IG) includes promyelocytes, myelocytes and metamyelocytes but does not include bands. Percent differential counts (%) should be interpreted in the context of the absolute cell counts (cells/L). Performed By: #### C BCDF ####[address] [address] Basophils (Bld) [#/Vol] 0.06 10*3/uL Normal 0.00 - 0.[address] [facility] Comment on above: Performed By: #### C BCDF ####[address] [address] Basophils/100 WBC (Bld) 0.8 % Normal 0.0 - 2.[address] [facility] Comment on above: Performed By: #### C BCDF ####[address] [address] Eosinophils (Bld) [#/Vol] 0.06 10*3/uL Normal 0.00 - 0.[address] [facility] Comment on above: Performed By: #### C BCDF ####[address] [address] Eosinophils/100 WBC (Bld) 0.8 % Normal 0.0 - 6.[address] [facility] Comment on above: Performed By: #### C BCDF ####[address] [address] Erythrocyte distribution width (RBC) [Ratio] 12.5 % Normal 11.5 - 14.[address] [facility] Comment on above: Performed By: #### C BCDF ####[address] [address] Hematocrit (Bld) [Volume fraction] 43.2 % Normal 36.0 - 46.[address] [facility] Comment on above: Performed By: #### C BCDF ####[address] [address] Hemoglobin (Bld) [Mass/Vol] 14.6 g/dL Normal 12.0 - 16.[address] [facility] Comment on above: Performed By: #### C BCDF ####[address] [address] Lymphocytes (Bld) [#/Vol] 1.51 10*3/uL Normal 1.20 - 4.[address] [facility] Comment on above: Performed By: #### C BCDF ####[address] [address] Lymphocytes/100 WBC (Bld) 19.6 % Normal 13.0 - 44.[address] [facility] Comment on above: Performed By: #### C BCDF ####[address] [address] MCHC (RBC) [Mass/Vol] 33.8 g/dL Normal 32.0 - 36.[address] [facility] Comment on above: Performed By: #### C BCDF ####[address] [address] MCV (RBC) [Entitic vol] 90 fL Normal 80 - [address] [facility] Comment on above: Performed By: #### C BCDF ####[address] [address] Monocytes (Bld) [#/Vol] 0.47 10*3/uL Normal 0.10 - 1.[address] [facility] Comment on above: Performed By: #### C BCDF ####[address] [place] [address] Monocytes/100 WBC (Bld) 6.1 % Normal 2.0 - 10.[address] [facility] Comment on above: Performed By: #### C BCDF ####[address] [address] Neutrophils (Bld) [#/Vol] 5.56 10*3/uL Normal 1.20 - 7.[address] [facility] Comment on above: Result Comment: Perc ent differential counts (%) should be interpreted in the context of the absolute cell counts (cells/L). Performed By: #### C BCDF ####[address] [address] Neutrophils/100 WBC (Bld) 72.3 % Normal 40.0 - 80.[address] [facility] Comment on above: Performed By: #### C BCDF ####[address] [address] Platelets (Bld) [#/Vol] 305 10*3/uL Normal 150 - [address] [facility] Comment on above: Performed By: #### C BCDF ####[address] [address] RBC 4.80 x10E12/L Normal 4.00 - 5.[address] [facility] Comment on above: Performed By: #### C BCDF ####[address] [address] WBC (Bld) [#/Vol] 7.7 10*3/uL Normal 4.4 - 11.3 [facility] Comment on above: Performed By: #### C BCDF ####[address] [address] CHEST 1 VIEWon 10-14-2022 CHEST 1 VIEW [address] [facility] COMPREHENSIVE PANELon 2022 Albumin [Mass/Vol] 4.2 g/dL Normal 3.4 - 5.0 [facility] Comment on above: Order Comment: Alexandru Osullivan , 10/14/2022 20:33 Performed By: #### C MP ####[place] [id number] ALP [Catalytic activity/Vol] 71 U/L Normal 33 - [address] [facility] Comment on above: Order Comment: Horvath d- RB to [place] , 10/14/2022 20:33 Performed By: #### C MP ####[address] [address] ALT [Catalytic activity/Vol] 17 U/L Normal 7 - [address] [facility] Comment on above: Order Comment: [place]ath d- RB to [place] , 10/14/2022 20:33 Result Comment: Bridget ents treated with Sulfasalazine may generate falsely decreased results for ALT. Performed By: #### C MP ####[place] [id number] Anion gap [Moles/Vol] 13 mmol/L Normal 10 - [address] [facility] Comment on above: Order Comment: [place]vath d- RB to [place] , 10/14/2022 20:33 Performed By: #### C MP ####[address] [address] AST [Catalytic activity/Vol] 11 U/L Normal 9 - [address] [facility] Comment on above: Order Comment: [place]ath d- RB to [place] , 10/14/2022 20:33 Performed By: #### C MP ####[address] [address] Bilirubin [Mass/Vol] 0.6 mg/dL Normal 0.0 - 1.2 [facility] Comment on above: Order Comment: [place]vath d- RB to [place] , 10/14/2022 20:33 Performed By: #### C MP ####[address] [address] Calcium [Mass/Vol] 10.0 mg/dL Normal 8.6 - 10.3 [facility] Comment on above: Order Comment: [place]ath d- RB to [place] , 10/14/2022 20:33 Performed By: #### C MP ####[address] [address] Chloride [Moles/Vol] 88 mmol/L Low 98 - 107 [facility] Comment on above: Order Comment: Horvath d- RB to Shi , 10/14/2022 20:33 Performed By: #### C MP ####[address] [address] Creatinine [Mass/Vol] 1.22 mg/dL High 0.50 - 1.[address] [facility] Comment on above: Order Comment: Horvath d- RB to Shi , 10/14/2022 20:33 Performed By: #### C MP ####[address] [address] GFR/1.73 sq M.predicted among non-blacks MDRD (S/P/Bld) [Vol rate/Area] 56 mL/min/{1.73_m2} Abnormal >[address] [facility] Comment on above: Order Comment: Horvath d- RB to Shi , 10/14/2022 20:33 Result Comment: CALC ULATIONS OF ESTIMATED GFR ARE PERFORMED USING THE 2020 CKD-EPI STUDY REFIT EQUATION WITHOUT THE RACE VARIABLE FOR THE IDMS-TRACEABLE CREATININE METHODS.https://jasn.asnjournals.org/content/early//ASN .7593375306 Performed By: #### C MP ####[address] [address] Glucose [Mass/Vol] 727 mg/dL Critically high 74 - 99 [facility] Comment on above: Order Comment: Horvath d- RB to Shi , 10/14/2022 20:33 Result Comment: Call ed- RB to [place] , 10/14/2022 20:33 Performed By: #### C MP ####[address] [address] HCO3 (Bld) [Moles/Vol] 32 mmol/L Normal 21 - [address] [facility] Comment on above: Order Comment: Horvath d- RB to Shi , 10/14/2022 20:33 Performed By: #### C MP ####[address] [address] Potassium [Moles/Vol] 4.8 mmol/L Normal 3.5 - 5.[address] [facility] Comment on above: Order Comment: Horvath d- RB to Shi , 10/14/2022 20:33 Performed By: #### C MP ####[address] [address] Protein [Mass/Vol] 7.2 g/dL Normal 6.4 - 8.2 [facility] Comment on above: Order Comment: [place]ath d- RB to [place] , 10/14/2022 20:33 Performed By: #### C MP ####[place] [id number] Sodium [Moles/Vol] 128 mmol/L Low 136 - 145 [facility] Comment on above: Order Comment: Horvath d- RB to Shi , 10/14/2022 20:33 Performed By: #### C MP ####[place] [id number] Urea nitrogen [Mass/Vol] 19 mg/dL Normal 6 - [address] [facility] Comment on above: Order Comment: Horvath d- RB to Shi , 10/14/2022 20:33 Performed By: #### C MP ####[place] [id number] HCG,URINEon 10-14-2022 Beta HCG ( test) Ql (U) Negative Normal Negative [facility] Comment on above: Performed By: #### H CGU ####[place] [address] INFLUENZA A/B, COVID 2019 PC R,SYMPTOMATICon 10-14-2022 INFLUENZA A, PCR Not detected Normal Not Detected [facility] Comment on above: Result Comment: Resp iratory virus testing is performed routinely by PCR for Influenza A/B and RSV. Not Detected results do not preclude Influenza A/B or RSV infections since the adequacy of sample collection or low viral burden may impact the clinical sensitivity of this test method. Performed By: #### C OINP ####[place] [address] INFLUENZA B, PCR Not detected Normal Not Detected [facility] Comment on above: Result Comment: Resp iratory virus testing is performed routinely by PCR for Influenza A/B and RSV. Not Detected results do not preclude Influenza A/B or RSV infections since the adequacy of sample collection or low viral burden may impact the clinical sensitivity of this test method. Performed By: #### C OINP ####[place] [address] Lab Specimen Source Nasal, Nasopharyngeal Normal [facility] Comment on above: Performed By: #### C OINP ####[place] [address] SARS-CoV-2 (COVID-19) RNA GLENNA+probe Ql (Unsp spec) Not detected Normal Not Detected [facility] Comment on above: Result Comment: Shayne s test has received FDA Emergency Use Authorization (EUA) and has beenverified by [facility]. This test is onlyauthorized for the duration of time that circumstances exist to justify theauthorization of the emergency use of in vitro diagnostic tests for thedetection of SARS-CoV-2 virus and/or diagnosis of COVID-19 infection undersection 564(b)(1) of the Act, 21 U.S.C. 360bbb-3(b)(1), unless theauthorization is terminated or revoked sooner.[facility] is certified under CLIA-88 asqualified to perform high complexity testing. Testing is performed in [facility] laboratory located at [address] [place] [address].SARS-CoV-2/Flu/RSV Multiplex Test:Fact sheet for providers: https://www.fda.gov/media/494729/downloadFact sheet for patients: https://www.fda.gov/media/251359/download Performed By: #### C OINP ####[place] [address] LACTATEon 10-14-2022 Lactate [Moles/Vol] 2.8 mmol/L High 0.4 - 2.0 [facility] Comment on above: Result Comment: [place] puncture immediately after or during the administration of Metamizole may lead to falsely low results. Testing should be performed immediately prior to Metamizole dosing. Performed By: #### L ACT ####[address] [address] MAGNESIUMon 10-14-2022 Magnesium [Mass/Vol] 1.83 mg/dL Normal 1.60 - 2.40 [facility] Comment on above: Performed By: #### M G ####[address] [address] Provider Note - ED v3on Provider Note - ED v3 Normal [facility] Risk Screen - Adult Emergenc yon 10-14-2022 Risk Screen - Adult Emergency Normal [facility] TROPONIN I, HIGH SENSITIVITY on 10-14-2022 TROPONIN I, HIGH SENSITIVITY 4 ng/L Normal 0 - [address] [facility] Comment on above: Result Comment: .Les s than 99th percentile of normal range cutoff-Female and children under 18 years old <14 ng/L; Male <21 ng/L: NegativeRepeat testing should be performed if clinically indicated..Female and children under 18 years old 14-50 ng/L; Male 21-50 ng/L:Consistent with possible cardiac damage and possible increased clinicalrisk. Serial measurements may help to assess extent of myocardial damage..>50 ng/L: Consistent with cardiac damage, increased clinical risk andmyocardial infarction. Serial measurements may help assess extent ofmyocardial damage..NOTE: Children less than 1 year old may have higher baseline troponinlevels and results should be interpreted in conjunction with the overallclinical context..NOTE: Troponin I testing is performed using a differenttesting methodology at [facility] than at [facility]. Direct result comparisons should onlybe made within the same method. Performed By: #### T RP ####[address] [address] Triage - EDon 10-14-2022 Triage - ED Normal [facility] UA MICROSCOPICon 10-14-2022 BACTERIA 1+ /HPF Abnormal [facility] Comment on above: Performed By: #### U AMIC ####[address] [address] RBC 1 /HPF Normal 0-[address] [facility] Comment on above: Performed By: #### U AMIC ####[place] [address] WBC 31 /HPF Abnormal 0-[address] [facility] Comment on above: Performed By: #### U AMIC ####[place] [address] URINALYSIS WITH CULTURE IF I NDICATEDon 10-14-2022 Appearance (U) CLEAR Normal CLEAR [facility] Comment on above: Performed By: #### U ARFX ####[place] [address] Bilirubin Ql (U) Negative Normal NEGATIVE [facility] Comment on above: Performed By: #### U ARFX ####[place] [address] Color (U) Colorless Normal STRAW,YELLO W [facility] Comment on above: Performed By: #### U ARFX ####[place] [address] Glucose Ql (U) >=500(3+) Abnormal NEGATIVE [facility] Comment on above: Performed By: #### U ARFX ####[place] [address] Hemoglobin Ql (U) Negative Normal NEGATIVE [facility] Comment on above: Performed By: #### U ARFX ####[place] [address] Ketones Ql (U) 20(1+) Abnormal NEGATIVE [facility] Comment on above: Performed By: #### U ARFX ####[place] [address] Leukocyte esterase Test strip Ql (U) SMALL(1+) Abnormal NEGATIVE [facility] Comment on above: Performed By: #### U ARFX ####[place] [address] Nitrite Ql (U) Negative Normal NEGATIVE [facility] Comment on above: Performed By: #### U ARFX ####[place] [address] pH (U) 7.0 [pH] Normal 5.0 - 8.[address] [facility] Comment on above: Performed By: #### U ARFX ####[address] [address] Protein Ql (U) Negative Normal NEGATIVE [facility] Comment on above: Performed By: #### U ARFX ####[address] [address] Specific gravity (U) [Rel density] 1.028 Normal 1.005 - 1.[address] [facility] Comment on above: Performed By: #### U ARFX ####[address] [address] Urobilinogen (U) [Mass/Vol] mg/dL Normal 0.0 - 1.[address] [facility] Comment on above: Performed By: #### U ARFX ####[address] [address] URINE CULTURE,BACTERIALon URINE CULTURE,BACTERIAL Normal [facility] Comment on above: Performed By: #### U RINC ####[id number] [place] [address] D-DIMERon 10-10-2022 DIMER < 200 Normal <230 [facility] Comment on above: Order Comment: A D-D gaby result of <230 ng/mL DDU has a high negative predictive value for DVT and PE when combined with a clinical assessment of low to moderate probability. This cut-off value is specific for HemosIL D-dimer assay and values obtained using different methods may not be used interchangeably. Performed By: #### D GABY #### [facility] [address] [facility] [place] [address] D-DIMEROrdered By: Antwan ash on 10-10-2022 Fibrin D-dimer DDU (PPP) [Mass/Vol] [facility] A D-Dimer result of <230 ng/mL DDU has a high negative predictive value for DVT and PE when combined with a clinical assessment of low to moderate probability. This cut-off value is specific for HemosIL D-dimer assay and values obtained using different methods may not be used interchangeably. [facility] Noteson 10-10-2022 Leather Carver Authentication Interface Message Text Per lab, d-dimer hemolyzed for third time. Communicated with dr. Rader Normal [facility] Leather Carver Authentication Interface Message Text Pt c/o nausea and elaine. Dr. Rader made aware. Normal [facility] Leather Carver Authentication Interface Message Text Cosigned insulin with [employer] [place] Normal [facility] Leather Carver Authentication Interface Message Text Pt eating without difficulty, elaine has slightly improved. Medicated per NOV. Awaiting to speak with provider for update. Normal [facility] Leather Carver Authentication Interface Message Text Current blood glucose 279. Normal [facility] Leather Carver Authentication Interface Message Text Pt aware lysandi has been set up for her and she will have to pay bill. Pt verbalized understanding. Normal [facility] GLUCOSE, FINGERSTICK-IN OFFI CEon 10-10-2022 Glucose [Mass/Vol] 279 mg/dL High 68 - 110 mg/dL [facility] Glucose [Mass/Vol] 279 mg/dL High 68-110 [facility] [employer] Comment on above: Performed By: #### 8 [id number] #### NURSING GLUCOSE PROGRAM [address] [place] [address], [id number] Interpretation and review of laboratory results Abnormal [facility] HIGH SENSITIVITY TROPONIN Io n 10-10-2022 HS TROPONIN I < 4 Normal <=15 [facility] Comment on above: Order Comment: High Sensitivity Cardiac Troponin I (hsTnI) assay has replaced the conventional troponin assay at [facility]. All results are reported in whole numbers representing ng/L. Repeat test times for ruling out acute coronary syndrome (ACS) are every 2 hours instead of every 6-8 hours. Zycaf-it-vruh conventional troponin (I-stat) will remain available in the Main [place] ED ??? results obtained by different labs or methods are not comparable. Elevated troponin can result from acute myocardial infarction (coronary etiology) or myocardial injury (non-coronary etiology) ??? always consider both. For ruling out acute coronary syndrome (ACS), lab values are always used in conjunction with clinical risk assessment (e.g., HEART score). Interpreting initial value in ruling out ACS Less than 5 ng/L ??? below lower limit of quantification ??? essentially rules out ACS if chest pain began more than 3 hours prior to test and assessed risk is low 5 - 49 ng/L ??? indeterminate ??? consider repeat value in 2 hours depending on risk assessment 50 ng/L or greater??? concern for ACS or myocardial injury Interpreting repeated values in ruling out ACS. Always compare to initial value obtained: Increase of less than 5 ng/L ??? essentially rules out ACS if chest pain began more than 3 hours prior to initial test and assessed risk is low Increase of 5 - 19 ng/L ??? indeterminate ??? consider another repeat value in 2 hours depending on risk assessment Increase of 20 ng/L or greater ??? Concern for ACS or myocardial injury Any absolute value of 50 ng/L or greater ??? concern for ACS or myocardial injury Intermediate hsTnI values DO NOT mandate admission to a cardiology or telemetry unit. They need to be interpreted within the clinical context using provider judgement. When using hsTnI to calculate the HEART score, use the 99 % Upper Reference Limit of 15 ng/L as the normal limit (i.e. <=15 ng/L = 0 points, 16-45 ng/L = 1 points, >45 ng/L = 2 points). Performed By: #### H STRP #### [facility] [address] [place] [address] [place] [address] Troponin I.cardiac DL <= 0.01 ng/mL [Mass/Vol] ng/L NINF - 15 ng/L [facility] No Panel Informationon 10-10 Interpretation and review of laboratory results Normal [facility] POTASSIUMon 10-10-2022 Potassium [Moles/Vol] 4.1 mmol/L 3.3 - 5.3 mmol/L [facility] Potassium [Moles/Vol] 4.1 mmol/L Normal 3.3-5.3 [facility] Comment on above: Performed By: #### K #### [facility] [address] [place] [address] [place] [address] Troponin I.cardiac DL <= 0.0 1 ng/mL [Mass/Vol]on 10-10-2022 High Sensitivity Car dia Troponin I (hsTnI) assay has replaced the conventional troponin assay at [facility]. All results are reported in whole numbers representing ng/L. Repeat test times for ruling out acute coronary syndrome (ACS) are every 2 hours instead of every 6-8 hours. [id number] conventional troponin (I-stat) will remain available in the [facility] ED results obtained by different labs or methods are not comparable. Elevated troponin can result from acute myocardial infarction (coronary etiology) or myocardial injury (non-coronary etiology) always consider both. For ruling out acute coronary syndrome (ACS), lab values are always used in conjunction with clinical risk assessment (e.g., HEART score). Interpreting initial value in ruling out ACS Less than 5 ng/L below lower limit of quantification essentially rules out ACS if chest pain began more than 3 hours prior to test and assessed risk is low 5 - 49 ng/L indeterminate consider repeat value in 2 hours depending on risk assessment 50 ng/L or greater concern for ACS or myocardial injury Interpreting repeated values in ruling out ACS. Always compare to initial value obtained: Increase of less than 5 ng/L essentially rules out ACS if chest pain began more than 3 hours prior to initial test and assessed risk is low Increase of 5 - 19 ng/L indeterminate consider another repeat value in 2 hours depending on risk assessment Increase of 20 ng/L or greater Concern for ACS or myocardial injury Any absolute value of 50 ng/L or greater concern for ACS or myocardial injury Intermediate hsTnI values DO NOT mandate admission to a cardiology or telemetry unit. They need to be interpreted within the clinical context using provider judgement. When using hsTnI to calculate the HEART score, use the 99 % Upper Reference Limit of 15 ng/L as the normal limit (i.e. <=15 ng/L = 0 points, 16-45 ng/L = 1 points, >45 ng/L = 2 points). [employer] XR CHEST 2 VIEW PA+LATon XR CHEST 2 VIEW PA+LAT EXAMINATION: XR CHEST 2 VIEW PA+LAT 10/09/2022 10:37 PM CLINICAL HISTORY: Chest pain ASSOCIATED DIAGNOSIS: Chest pain ORDERING PROVIDER: ANDREI RADER TECHNCLAUDE NOTE: COMPARISON: None FINDINGS: Cardiomediastinal silhouette: Normal. Lungs/Pleura: No focal pulmonary consolidation, effusion or pneumothorax. Musculoskeletal: Unremarkable. IMPRESSION: No acute process. MACRO: None Normal [facility] B TYPE NATRIURETIC PEPTIDEon 10-09-2022 Natriuretic peptide B (Bld) [Mass/Vol] 22.0 pg/mL Normal <100.0 [facility] Comment on above: Performed By: #### B PL #### [facility] [address] [place] [address] [place] [address] BASIC METABOLIC PANELon Anion gap [Moles/Vol] 17 mmol/L Normal 10-20 [facility] Comment on above: Performed By: #### C H8 #### [facility] [address] [place] [address] [place] [address] Calcium [Mass/Vol] 9.6 mg/dL Normal 8.4-10.4 [facility] Comment on above: Performed By: #### C H8 #### [facility] [address] [place] [address] [place] [address] Chloride [Moles/Vol] 97 mmol/L Normal 97-111 [facility] Comment on above: Performed By: #### C H8 #### [facility] [address] [place] [address] [place] [address] CO2 [Moles/Vol] 24 mmol/L Normal 21-30 [facility] Comment on above: Performed By: #### C H8 #### [facility] [address] [place] [address] [place] [address] Creatinine [Mass/Vol] 0.81 mg/dL Normal 0.50-1.10 [facility] Comment on above: Performed By: #### C H8 #### [facility] [address] [place] [address] [place] [address] ESTIMATED GFR (CKD-EPI) 92 mL/min/1.73sqm Normal >=60 [facility] Comment on above: Result Comment: 2020 CKD EPI Equation using Creatinine without Race Comment: Estimated glomerular filtration rate (eGFR) is calculated without a race coefficient. Values should be interpreted in the context of the patient's full clinical presentation. Reference: 1. Lexa Johnson, Baljit M, Jono DC, et al.. A Unifying Approach for GFR Estimation: Recommendations of the NKF-ASN Task Force on Reassessing the Inclusion of Race in Diagnosing Kidney Disease. [place] Journal of Kidney Diseases 2021;79(2):268-88.e1. 2. N Engl J Med 1 Vol. 385 Issue 19 Pages 5982-3703 Performed By: #### C H8 #### [facility] [address] [place] [address] [place] [address] Glucose [Mass/Vol] 282 mg/dL High 68-110 [facility] Comment on above: Performed By: #### C H8 #### [facility] [address] [place] [address] [place] [address] Potassium [Moles/Vol] 5.6 mmol/L High 3.3-5.3 [facility] Comment on above: Result Comment: Hemo lysis present Performed By: #### C H8 #### [facility] [address] [place] [address] [place] [address] Sodium [Moles/Vol] 132 mmol/L Low 135-148 [facility] Comment on above: Performed By: #### C H8 #### [facility] [address] [place] [address] [place] [address] Urea nitrogen [Mass/Vol] 20 mg/dL Normal 8-22 [facility] Comment on above: Performed By: #### C H8 #### [facility] [address] [place] [address] [place] [address] Basic metabolic 2000 panelon 10-09-2022 Anion gap [Moles/Vol] 17 mmol/L 10 - 20 [facility] Calcium [Mass/Vol] 9.6 mg/dL 8.4 - 10. 4 mg/dL [facility] Chloride [Moles/Vol] 97 mmol/L 97 - 11 1 mmol/L [facility] CO2 [Moles/Vol] 24 mmol/L 21 - 30 mmol/L [facility] Creatinine [Mass/Vol] 0.81 mg/dL 0.50 - 1.10 mg/dL [facility] GFR/1.73 sq M.predicted MDRD (S/P/Bld) [Vol rate/Area] 92 mL/min/{1.73_m2} - PINF [facility] Comment on above: 2020 CKD EPI Equatio n using Creatinine without Race Comment: Estimated glomerular filtration rate (eGFR) is calculated without a race coefficient. Values should be interpreted in the context of the patient's full clinical presentation. Reference: 1. Lexa C, Baljit M, Jono CALDWELL, et al.. A Unifying Approach for GFR Estimation: Recommendations of the NKF-ASN Task Force on Reassessing the Inclusion of Race in Diagnosing Kidney Disease. [place] Journal of Kidney Diseases 2021;79(2):268-88.e1. 2. N Engl J Med 2020 Vol. 385 Issue 19 Pages 2213-9125 Glucose [Mass/Vol] 282 mg/dL High 68 - 110 mg/dL [facility] Interpretation and review of laboratory results Abnormal [facility] Potassium [Moles/Vol] 5.6 mmol/L High 3.3 - 5.3 mmol/L [facility] Comment on above: Hemolysis present Sodium [Moles/Vol] 132 mmol/L Low 135 - 148 mmol/L [facility] Urea nitrogen [Mass/Vol] 20 mg/dL 8 - 22 mg/dL [facility] CBC WITH DIFFERENTIALon Basophils (Bld) [#/Vol] 0.00 10*3/uL 0.00 - 0.20 K/uL [facility] Basophils (Bld) [#/Vol] 0.00 10*3/uL Normal 0.00-0.20 [facility] Comment on above: Performed By: #### Aida GABY #### [facility] [address] [place] [address] [place] [address] Basophils/100 WBC (Bld) 0.8 % NINF - 1.9 % [facility] Basophils/100 WBC (Bld) 0.8 % Normal <=1.9 [facility] Comment on above: Performed By: #### D GABY #### [facility] [address] [place] [address] [place] [address] Eosinophils (Bld) [#/Vol] 0.10 10*3/uL 0.00 - 0.70 K/uL [facility] Eosinophils (Bld) [#/Vol] 0.10 10*3/uL Normal 0.00-0.70 [facility] Comment on above: Performed By: #### D GABY #### [facility] [address] [place] [address] [place] [address] Eosinophils/100 WBC (Bld) 1.2 % 0.1 - 4.0 % [facility] Eosinophils/100 WBC (Bld) 1.2 % Normal 0.1-4.0 [facility] Comment on above: Performed By: #### Aida GABY #### [facility] [address] [place] [address] [place] [address] Erythrocyte distribution width (RBC) [Ratio] 13.9 % 11.5 - 14.5 % [facility] Erythrocyte distribution width (RBC) [Ratio] 13.9 % Normal 11.5-14.5 [facility] Comment on above: Performed By: #### Aida GABY #### [facility] [address] [place] [address] [place] [address] Hematocrit (Bld) [Volume fraction] 39.6 % 36.0 - 46.0 % [facility] Hematocrit (Bld) [Volume fraction] 39.6 % Normal 36.0-46.0 [facility] Comment on above: Performed By: #### Aida GABY #### [facility] [address] [place] [address] [place] [address] Hemoglobin (Bld) [Mass/Vol] 13.4 g/dL 12.0 - 15.0 g/dL [facility] Hemoglobin (Bld) [Mass/Vol] 13.4 g/dL Normal 12.0-15.0 [facility] Comment on above: Performed By: #### Aida GABY #### [facility] [address] [place] [address] [place] [address] Lymphocytes (Bld) [#/Vol] 2.10 10*3/uL 1.00 - 4.80 K/uL [facility] Lymphocytes (Bld) [#/Vol] 2.10 10*3/uL Normal 1.00-4.80 [facility] Comment on above: Performed By: #### Aida GABY #### [facility] [address] [place] [address] [place] [address] Lymphocytes/100 WBC (Bld) 33.7 % 24.0 - 44.0 % [facility] Lymphocytes/100 WBC (Bld) 33.7 % Normal 24.0-44.0 [facility] Comment on above: Performed By: #### D GABY #### [facility] [address] [place] [address] [place] [address] MCH (RBC) [Entitic mass] 30.9 pg 26.0 - 34.0 pg [facility] MCH (RBC) [Entitic mass] 30.9 pg Normal 26.0-34.0 [facility] Comment on above: Performed By: #### D GABY #### [facility] [address] [place] [address] [place] [address] MCHC (RBC) [Mass/Vol] 33.7 g/dL 32.0 - 35.9 g/dL [facility] MCHC (RBC) [Mass/Vol] 33.7 g/dL Normal 32.0-35.9 [facility] Comment on above: Performed By: #### D GABY #### [facility] [address] [place] [address] [place] [address] MCV (RBC) [Entitic vol] 92 fL 80 - 100 fL [facility] MCV (RBC) [Entitic vol] 92 fL Normal 80-100 [facility] Comment on above: Performed By: #### Aida GABY #### [facility] [address] [place] [address] [place] [address] MONOCYTE DISTRIBUTION WIDTH Normal [facility] Comment on above: Performed By: #### D GABY #### [facility] [address] [place] [address] [place] [address] Monocyte distribution width Auto (Bld) [Entitic vol] [facility] Monocytes (Bld) [#/Vol] 0.50 10*3/uL 0.20 - 1.00 K/uL [facility] Monocytes (Bld) [#/Vol] 0.50 10*3/uL Normal 0.20-1.00 [facility] Comment on above: Performed By: #### D GABY #### [facility] [address] [place] [address] [place] [address] Monocytes/100 WBC (Bld) 8.0 % 2.0 - 11.0 % [facility] Monocytes/100 WBC (Bld) 8.0 % Normal 2.0-11.0 [facility] Comment on above: Performed By: #### Aida GABY #### [facility] [address] [place] [address] [place] [address] Neutrophils (Bld) [#/Vol] 3.50 10*3/uL 1.50 - 8.00 K/uL [facility] Neutrophils (Bld) [#/Vol] 3.50 10*3/uL Normal 1.50-8.00 [facility] Comment on above: Performed By: #### Aida GABY #### [facility] [address] [place] [address] [place] [address] Neutrophils/100 WBC (Bld) 56.3 % 31.0 - 76.0 % [facility] Neutrophils/100 WBC (Bld) 56.3 % Normal 31.0-76.0 [facility] Comment on above: Performed By: #### Aida GABY #### [facility] [address] [place] [address] [place] [address] Nucleated RBC (Bld) [#/Vol] 0.01 10*3/uL [facility] Nucleated RBC (Bld) [#/Vol] 0.1 10*3/uL Normal [facility] Comment on above: Performed By: #### Aida GABY #### [facility] [address] [place] [address] [place] [address] Nucleated RBC (Bld) [#/Vol] 0.01 10*3/uL Normal [facility] Comment on above: Performed By: #### Aida GABY #### [facility] [address] [place] [address] [place] [address] Nucleated RBC/100 WBC (Bld) [Ratio] 0.1 % [facility] Platelet mean volume (Bld) [Entitic vol] 9.1 fL 7.5 - 11.2 fL [facility] Platelet mean volume (Bld) [Entitic vol] 9.1 fL Normal 7.5-11.2 [facility] Comment on above: Performed By: ###González Parra GABY #### [facility] [address] [place] [address] [place] [address] Platelets (Bld) [#/Vol] 277 10*3/uL 150 - 400 K/uL [facility] Platelets (Bld) [#/Vol] 277 10*3/uL Normal 150-400 [facility] Comment on above: Performed By: ###González Parra GABY #### [facility] [address] [place] [address] [place] [address] RBC (Bld) [#/Vol] 4.33 10*6/uL [facility] RBC (Bld) [#/Vol] 4.33 10*6/uL Normal 4.00-5.20 [facility] Comment on above: Performed By: ###González Parra GABY #### [facility] [address] [place] [address] [place] [address] WBC (Bld) [#/Vol] 6.2 10*3/uL 4.5 - 11.5 K/uL [facility] WBC (Bld) [#/Vol] 6.2 10*3/uL Normal 4.5-11.5 [facility] Comment on above: Performed By: ##Xiang Parra GABY #### [facility] [address] [place] [address] [place] [address] ED Noteson 10-09-2022 Leather Carver Authentication Interface Message Text Current blood glucose 343. Normal [facility] Provider Noteson 10-09-19 Leather Carver Authentication Interface Message Text Normal [facility] Leather Carver Authentication Interface Message Text EMERGENCY DEPARTMENT - VISIT NOTE ----- HISTORY OF PRESENT ILLNESS - Chief Complaint Patient presents with Chart Pt states her blood glucose has been >300 x2 weeks, and today she developed chest pain in the center of her chest. She has been in touch with her PCP and they are adjusting her insulin and metformin but she was advised to come to the ED d/t the high glucose and chest pain. States she had a stroke in August 2021 and does have some deficits such as slurred speech, neuropathy, vision changes. VSS. States some SOB intermittently. Medical Technologist Prn: not needed - patient preferred language is Hungarian. 42-year-old female complains of 6/10 chest pain which she describes as both sharp and tightness that has been relatively constant the last couple hours. Her significant other's car broke down close to here. She recently moved here from [place]. No history heart disease but she has had a stroke in the past and has hypertension, diabetes, and mild CKD. She states that the last couple weeks blood sugars have been very erratic and running in the 3 and 400s slight shortness of breath aggravated with exertion along aggravated the tightness. No significant family history of heart disease. Positive family history of diabetes. She denies tobacco use. No history of venous thromboembolism. She has had some tingling in the left arm in the left a couple hours as well. History provided by: Patient and significant otherLanguage almond roaster used: No Chest symptoms/complaints Pain location: Substernal area Pain quality: tightness Pain radiates to: Does not radiate Pain severity: Mild Onset quality: Gradual Duration: 2 hours Timing: Constant Progression: Unchanged Chronicity: New Relieved by: Nothing Worsened by: Nothing Ineffective treatments: None tried Associated symptoms: nausea and shortness of breath Associated symptoms: no abdominal pain, no altered mental status, no cough, no dizziness, no fever, no lower extremity edema, no numbness, no syncope and no vomiting Risk factors: diabetes mellitus and hypertension Risk factors: no prior DVT/PE and no smoking REVIEW OF SYSTEMS Review of Systems Constitutional: Negative for fever. HENT: Negative for facial swelling. Eyes: Negative for redness. Respiratory: Positive for shortness of breath. Negative for cough. Cardiovascular: Positive for chest pain. Negative for syncope. Gastrointestinal: Positive for constipation and nausea. Negative for abdominal pain and vomiting. Genitourinary: Negative for dysuria. Musculoskeletal: Negative for neck pain and neck stiffness. Skin: Negative for rash. Neurological: Negative for dizziness, speech difficulty and numbness. Psychiatric/Behavioral: Negative for confusion. PAST HISTORY Pertinent Past History: Diabetes, stroke, CKD, hypertension No past medical history on file. Pertinent Family History: Diabetes No family history on file. Pertinent Social History: No tobacco PHYSICAL EXAM BP 150/93 Pulse (!) 102 Temp 97.8 ???F (36.6 ???C) (Oral) Resp 18 Wt 250 lb (113.4 kg) SpO2 96% Physical Exam Vitals and nursing note reviewed. Constitutional: General: She is not in acute distress. Appearance: She is not ill-appearing, toxic-appearing or diaphoretic. HENT: Head: Normocephalic. Right Ear: External ear normal. Left Ear: External ear normal. Nose: Nose normal. Mouth/Throat: Mouth: Mucous membranes are moist. Pharynx: Oropharynx is clear. Eyes: Extraocular Movements: Extraocular movements intact. Conjunctiva/sclera: Conjunctivae normal. Pupils: Pupils are equal, round, and reactive to light. Cardiovascular: Rate and Rhythm: Normal rate and regular rhythm. Pulses: Normal pulses. Heart sounds: Normal heart sounds. Pulmonary: Effort: Pulmonary effort is normal. No respiratory distress. Breath sounds: Normal breath sounds. Abdominal: General: Abdomen is flat. There is no distension. Tenderness: There is no abdominal tenderness. Musculoskeletal: General: No swelling or tenderness. Normal range of motion. Cervical back: Normal range of motion. Right lower leg: No edema. Left lower leg: No edema. Skin: General: Skin is warm and dry. Capillary Refill: Capillary refill takes less than 2 seconds. Neurological: General: No focal deficit present. Mental Status: She is alert and oriented to person, place, and time. Psychiatric: Mood and Affect: Mood normal. Behavior: Behavior normal. MEDICAL DECISION MAKING and ED COURSE EMERGENCY DEPARTMENT EKG INTERPRETATION Rhythm: Normal sinus rhythm Rate: 99 NORMAL Normal conduc (more content not included)... Normal [facility] GLUCOSE, FINGERSTICK-IN OFFI CEon 10-09-2022 Glucose [Mass/Vol] 343 mg/dL High 68 - 110 mg/dL [facility] Comment on above: Notified YASMINE AUGUSTIN MD Glucose [Mass/Vol] 343 mg/dL High 68-110 [facility] Comment on above: Result Comment: Francisco cook RN, APN, MD Performed By: #### D GABY #### [facility] [address] [place] [address] [place] [address] Interpretation and review of laboratory results Abnormal [facility] HCG URINEon 10-09-2022 Beta HCG ( test) Ql (U) Negative Normal Negative [facility] Comment on above: Performed By: #### U R BETA #### [facility] [address] [place] [address] [place] [address] HCG URINEOrdered By: Iram obando on 10-09-2022 HCG ( test) Ql (U) Negative Negative [facility] HIGH SENSITIVITY TROPONIN Io n 10-09-2022 HS TROPONIN I < 4 Normal <=15 [facility] Comment on above: Order Comment: High Sensitivity Cardiac Troponin I (hsTnI) assay has replaced the conventional troponin assay at [facility]. All results are reported in whole numbers representing ng/L. Repeat test times for ruling out acute coronary syndrome (ACS) are every 2 hours instead of every 6-8 hours. [id number] conventional troponin (I-stat) will remain available in the Main [place] ED ??? results obtained by different labs or methods are not comparable. Elevated troponin can result from acute myocardial infarction (coronary etiology) or myocardial injury (non-coronary etiology) ??? always consider both. For ruling out acute coronary syndrome (ACS), lab values are always used in conjunction with clinical risk assessment (e.g., HEART score). Interpreting initial value in ruling out ACS Less than 5 ng/L ??? below lower limit of quantification ??? essentially rules out ACS if chest pain began more than 3 hours prior to test and assessed risk is low 5 - 49 ng/L ??? indeterminate ??? consider repeat value in 2 hours depending on risk assessment 50 ng/L or greater??? concern for ACS or myocardial injury Interpreting repeated values in ruling out ACS. Always compare to initial value obtained: Increase of less than 5 ng/L ??? essentially rules out ACS if chest pain began more than 3 hours prior to initial test and assessed risk is low Increase of 5 - 19 ng/L ??? indeterminate ??? consider another repeat value in 2 hours depending on risk assessment Increase of 20 ng/L or greater ??? Concern for ACS or myocardial injury Any absolute value of 50 ng/L or greater ??? concern for ACS or myocardial injury Intermediate hsTnI values DO NOT mandate admission to a cardiology or telemetry unit. They need to be interpreted within the clinical context using provider judgement. When using hsTnI to calculate the HEART score, use the 99 % Upper Reference Limit of 15 ng/L as the normal limit (i.e. <=15 ng/L = 0 points, 16-45 ng/L = 1 points, >45 ng/L = 2 points). Performed By: #### H STRP #### [facility] [address] [place] [address] Troponin I.cardiac DL <= 0.01 ng/mL [Mass/Vol] ng/L NINF - 15 ng/L [facility] No Panel InformationOrdered By: Iram Pinto on 10-09-2022 Interpretation and review of laboratory results Normal [facility] Troponin I.cardiac DL <= 0.0 1 ng/mL [Mass/Vol]on 10-09-2022 High Sensitivity Car diac Troponin I (hsTnI) assay has replaced the conventional troponin assay at [facility]. All results are reported in whole numbers representing ng/L. Repeat test times for ruling out acute coronary syndrome (ACS) are every 2 hours instead of every 6-8 hours. [id number] conventional troponin (I-stat) will remain available in the Main [place] ED results obtained by different labs or methods are not comparable. Elevated troponin can result from acute myocardial infarction (coronary etiology) or myocardial injury (non-coronary etiology) always consider both. For ruling out acute coronary syndrome (ACS), lab values are always used in conjunction with clinical risk assessment (e.g., HEART score). Interpreting initial value in ruling out ACS Less than 5 ng/L below lower limit of quantification essentially rules out ACS if chest pain began more than 3 hours prior to test and assessed risk is low 5 - 49 ng/L indeterminate consider repeat value in 2 hours depending on risk assessment 50 ng/L or greater concern for ACS or myocardial injury Interpreting repeated values in ruling out ACS. Always compare to initial value obtained: Increase of less than 5 ng/L essentially rules out ACS if chest pain began more than 3 hours prior to initial test and assessed risk is low Increase of 5 - 19 ng/L indeterminate consider another repeat value in 2 hours depending on risk assessment Increase of 20 ng/L or greater Concern for ACS or myocardial injury Any absolute value of 50 ng/L or greater concern for ACS or myocardial injury Intermediate hsTnI values DO NOT mandate admission to a cardiology or telemetry unit. They need to be interpreted within the clinical context using provider judgement. When using hsTnI to calculate the HEART score, use the 99 % Upper Reference Limit of 15 ng/L as the normal limit (i.e. <=15 ng/L = 0 points, 16-45 ng/L = 1 points, >45 ng/L = 2 points). [facility] XR Chest PA and Lateralon Radiology Study observation (narrative) [facility] EXAMINATION: XR CHES T 2 VIEW PA+LAT 10/09/2022 10:37 PM CLINICAL HISTORY: Chest pain ASSOCIATED DIAGNOSIS: Chest pain ORDERING PROVIDER: ANDREI RADER TECHNCLAUDE NOTE: COMPARISON: None FINDINGS: Cardiomediastinal silhouette: Normal. Lungs/Pleura: No focal pulmonary consolidation, effusion or pneumothorax. Musculoskeletal: Unremarkable. IMPRESSION: No acute process. MACRO: None RADIOLOGY Aries Juarez MD - 10/09/2022 EXAMINATION: XR CHEST 2 VIEW PA+LAT 10/09/2022 10:37 PM CLINICAL HISTORY: Chest pain ASSOCIATED DIAGNOSIS: Chest pain ORDERING PROVIDER: ANDREI RADER TECHNCLAUDE NOTE: COMPARISON: None FINDINGS: Cardiomediastinal silhouette: Normal. Lungs/Pleura: No focal pulmonary consolidation, effusion or pneumothorax. Musculoskeletal: Unremarkable. IMPRESSION: No acute process. MACRO: None [facility] XR Chest PA and LateralOrder ed By: Aries Juarez on 10-09-2022 [facility] Work Phone: Social History Date Type Detail Facility Start: 09-28-2023 Tobacco smoking status Never smoked tobacco (finding) [facility] Start: 09-29-2022 End: 10-09-2022 Exposure to SARS-CoV-2 (event) Not sure [facility] Start: 1980 Sex Assigned At Not on file [facility] Tobacco smoking stat [facility] Tobacco smoking consumption unknown [facility] Tobacco smoking status No Smokin g Status Entered [facility] Sex Assigned At Female [facility] Denies alcohol consumption Denies alcohol consumption [id number] Work Phone: Tobacco smoking status Never [facility] Vital Signs Date Time Vital Sign Value Performing Clinician Facility 09-28-2023 19:07-0500 Diastolic blood pressure 88 mm[Hg] Srinivas Easley [facility] 09-28-2023 19:07-0500 Heart rate 91 /min Srinivas Easley [facility] 09-28-2023 19:07-0500 Respiratory rate 20 /min Srinivas Easley [facility] 09-28-2023 19:07-0500 SaO2% (BldA) [Mass fraction] 99 % Srinivas Easley [facility] 09-28-2023 19:07-0500 Systolic blood pressure 138 mm[Hg] Srinivas Kaushal [facility] 09-28-2023 18:15-0500 Diastolic blood pressure 84 mm[Hg] Srinivas Kaushal [facility] 09-28-2023 18:15-0500 Respiratory rate 30 /min Srinivas Kaushal [facility] 09-28-2023 18:15-0500 SaO2% (BldA) [Mass fraction] 98 % Srinivas Kaushal [facility] 09-28-2023 18:15-0500 Systolic blood pressure 136 mm[Hg] Srinivas Kaushal [facility] 09-28-2023 17:17-0500 Diastolic blood pressure 88 mm[Hg] Srinivas Kaushal [facility] 09-28-2023 17:17-0500 Heart rate 87 /min Srinivas Kaushal [facility] 09-28-2023 17:17-0500 Respiratory rate 17 /min Srinivas Kaushal [facility] 09-28-2023 17:17-0500 SaO2% (BldA) [Mass fraction] 97 % Srinivas Kaushal [facility] 09-28-2023 17:17-0500 Systolic blood pressure 135 mm[Hg] Srinivas Kaushal [facility] 09-28-2023 14:23-0500 Body temperature 97.7 [degF] Srinivas Kaushal [facility] 09-28-2023 14:23-0500 Heart rate 101 /min Srinivas Kaushal [facility] 09-28-2023 14:23-0500 Respiratory rate 18 /min Srinivas Kaushal [facility] 03-04-2023 10:39-0400 Body height 162.56 cm Kip W Soviak Work Phone: [facility] 3 DO Work Phone: 03-04-2023 10:39-0400 Body mass index (BMI) [Ratio] 37.83 kg/m2 Kip W Soviak Work Phone: [facility] 3 DO Work Phone: 03-04-2023 10:39-0400 Body surface area Derived from formula 2.04 m2 Kip W Soviak Work Phone: [place] [id number] DO Work Phone: 03-04-2023 10:39-0400 Body weight 99.97 kg Kip W Soviak Work Phone: [place] [id number] DO Work Phone: 03-04-2023 10:39-0400 Diastolic blood pressure 66 mm[Hg] Kip W Soviak Work Phone: [place] [id number] DO Work Phone: 03-04-2023 10:39-0400 Heart rate 83 /min Kip W Soviak Work Phone: [place] [id number] DO Work Phone: 03-04-2023 10:39-0400 SaO2% (BldA) [Mass fraction] 94 % Kip W Soviak Work Phone: [facility] 3 DO Work Phone: 03-04-2023 10:39-0400 Systolic blood pressure 112 mm[Hg] Kip W Soviak Work Phone: [facility] 3 DO Work Phone: 02-10-2023 17:00-0400 Diastolic blood pressure 72 mm[Hg] [facility] 02-10-2023 17:00-0400 Heart rate 82 /min [facility] 02-10-2023 17:00-0400 Respiratory rate 17 /min [facility] 02-10-2023 17:00-0400 SaO2% (BldA) [Mass fraction] 97 % [facility] 02-10-2023 17:00-0400 Systolic blood pressure 118 mm[Hg] [facility] 02-10-2023 13:32-0400 Body height 162.5 cm [facility] 02-10-2023 13:32-0400 Body temperature 97.52 [degF] [facility] 02-10-2023 13:32-0400 Body weight 101 kg [facility] 01-19-2023 20:00-0400 Diastolic blood pressure 79 mm[Hg] [facility] 01-19-2023 20:00-0400 Heart rate 86 /min [facility] 01-19-2023 20:00-0400 Respiratory rate 16 /min [facility] 01-19-2023 20:00-0400 SaO2% (BldA) [Mass fraction] 96 % [facility] 01-19-2023 20:00-0400 Systolic blood pressure 123 mm[Hg] [facility] 01-19-2023 17:19-0400 Body temperature 97.52 [degF] [facility] 01-19-2023 17:19-0400 Body weight 97 kg [facility] 11-30-2022 15:53-0400 Body temperature 37.0 {degrees_C} Christina Mcnally MD, MPH Work Phone: [id number] Work Phone: Comment on above: NOTE: PATIENT RESULTS ARE NOT CORRECTED FOR TEMPERATURE. 11-30-2022 15:53-0400 SaO2% (BldA) [Mass fraction] 99 % Christina Mcnally MD, MPH Work Phone: [id number] Work Phone: 11-16-2022 09:40-0400 Body temperature 97.88 [degF] [facility] 11-16-2022 09:40-0400 Diastolic blood pressure 76 mm[Hg] [facility] 11-16-2022 09:40-0400 Heart rate 94 /min [facility] 11-16-2022 09:40-0400 Respiratory rate 18 /min [facility] 11-16-2022 09:40-0400 SaO2% (BldA) [Mass fraction] 94 % [facility] 11-16-2022 09:40-0400 Systolic blood pressure 126 mm[Hg] [facility] 11-07-2022 11:05-0500 Hourly Rounding Srinivas Easley [facility] 11-07-2022 11:05-0500 Promise to Return Srinivas Easley [facility] 11-07-2022 11:00-0500 Diastolic blood pressure 61 mm[Hg] Srinivas Hendersone [facility] 11-07-2022 11:00-0500 Mean blood pressure 84 mm[Hg] Srinivas Hendersone [facility] 11-07-2022 11:00-0500 SaO2% (BldA) [Mass fraction] 95 % Srinivas Easley [facility] 11-07-2022 11:00-0500 Systolic blood pressure 129 mm[Hg] Srinivas Hendersone [facility] 11-07-2022 10:08-0500 Hourly Rounding Srinivas Hendersone [facility] 11-07-2022 10:08-0500 Promise to Return Srinivas Easley [facility] 11-07-2022 10:00-0500 Diastolic blood pressure 75 mm[Hg] Srinivas Hendersone [facility] 11-07-2022 10:00-0500 Heart rate 104 /min Srinivas Hendersone [facility] 11-07-2022 10:00-0500 Mean blood pressure 99 mm[Hg] Srinivas Hendersone [facility] 11-07-2022 10:00-0500 Systolic blood pressure 148 mm[Hg] Srinivas Hendersone [facility] 11-07-2022 09:20-0500 Body temperature 98.96 [degF] Srinivas Hendersone [facility] 11-07-2022 09:20-0500 Diastolic blood pressure 78 mm[Hg] Srinivas Hendersone [facility] 11-07-2022 09:20-0500 Heart rate 107 /min Srinivas Hendersone [facility] 11-07-2022 09:20-0500 Respiratory rate 18 /min Srinivas Hendersone [facility] 11-07-2022 09:20-0500 SaO2% (BldA) [Mass fraction] 98 % Srinivas Kaushal [facility] 11-07-2022 09:20-0500 Systolic blood pressure 136 mm[Hg] Srinivas Kaushal [facility] 10-10-2022 00:21-0500 Heart rate 86 /min Andrei Rader MD Work Phone: [employer] 10-10-2022 00:21-0500 Respiratory rate 12 /min Andrei Rader MD Work Phone: [employer] 10-10-2022 00:21-0500 SaO2% (BldA) [Mass fraction] 98 % Andrei Rader MD Work Phone: [employer] 10-09-2022 20:15-0500 Body temperature 97.81 [degF] Andrei Rader MD Work Phone: [employer] 10-09-2022 20:15-0500 Body weight 113.4 kg Andrei Rader MD Work Phone: [employer] 10-09-2022 20:15-0500 Diastolic blood pressure 93 mm[Hg] Andrei Rader MD Work Phone: [employer] 10-09-2022 20:15-0500 Systolic blood pressure 150 mm[Hg] Andrei Rader MD Work Phone: [employer] Functional Status Date Assessment Result Facility 09-28-2023 Functional Status N/A [facility] 11-07-2022 Functional Status N/A [facility] Functional observable [facility] Mental Status Date Assessment Result Facility 11-16-2022 Cognitive functi ons [id number] [facility] Clinical Notes 10-09-2022 to 09-28-2023 Maricruz Wing, YASMINE - 10/10/2022 1:37 AM Maricruz Arvizu RN - 10/10/2022 1:37 AM Temitope Heredia RN - 10/10/2022 1:23 AM Maricruz Arvizu RN - 10/10/2022 12:34 AM Russel Instructions Note Date & Type Note Facility 09-28-2023 Hospital Discharge instructions Patient Education 09/28/2023 19:09:51 Hyperglycemia, Zdlp-yd-Tiyr Hyperglycemia Hyperglycemia is when the sugar (glucose) level in your blood is too high. High blood sugar can happen to people who have or do not have diabetes. High blood sugar can happen quickly. It can be an emergency. What are the causes? If you have diabetes, high blood sugar may be caused by: Medicines that increase blood sugar or affect your control of diabetes. Getting less physical activity. Overeating. Being sick or injured or having an infection. Having surgery. Stress. Not giving yourself enough insulin (if you are taking it). You may have high blood sugar because you have diabetes that has not been diagnosed yet. If you do not have diabetes, high blood sugar may be caused by: Certain medicines. Stress. A bad illness. An infection. Having surgery. Diseases of the pancreas. What increases the risk? This condition is more likely to develop in people who have risk factors for diabetes, such as: Having a family member with diabetes. Certain conditions in which the body's defense system (immune system) attacks itself. These are called autoimmune disorders. Being overweight. Not being active. Having a condition called insulin resistance. Having a history of: ?Prediabetes. ?Diabetes when . ?Polycystic ovarian syndrome (PCOS). What are the signs or symptoms? This condition may not cause symptoms. If you do have symptoms, they may include: Feeling more thirsty than normal. Needing to pee (urinate) more often than normal. Hunger. Feeling very tired. Blurry eyesight (vision). You may get other symptoms as the condition gets worse, such as: Dry mouth. Pain in your belly (abdomen). Not being hungry (loss of appetite). Breath that smells fruity. Weakness. Weight loss that is not planned. A tingling or numb feeling in your hands or feet. A headache. Cuts or bruises that heal slowly. How is this treated? Treatment depends on the cause of your condition. Treatment may include: Taking medicine to control your blood sugar levels. Changing your medicine or dosage if you take insulin or other diabetes medicines. Lifestyle changes. These may include: ?Exercising more. ?Eating healthier foods. ?Losing weight. Treating an illness or infection. Checking your blood sugar more often. Stopping or reducing steroid medicines. If your condition gets very bad, you will need to be treated in the hospital. Follow these instructions at home: General instructions Take ageo-ucx-tsvodtn and prescription medicines only as told by your doctor. Do not smoke or use any products that contain nicotine or tobacco. If you need help quitting, ask your doctor. If you drink alcohol: ?Limit how much you have to: ?0 1 drink a day for women who are not . ?0 2 drinks a day for men. ?Know how much alcohol is in a drink. In the [place] one drink equals one 12 oz bottle of beer (355 mL), one 5 oz glass of wine (148 mL), or one 1 oz glass of hard liquor (44 mL). Manage stress. If you need help with this, ask your doctor. Do exercises as told by your doctor. Keep all follow-up visits. Eating and drinking Stay at a healthy weight. Make sure you drink enough fluid when you: ?Exercise. ?Get sick. ?Are in hot temperatures. Drink enough fluid to keep your pee (urine) pale yellow. If you have diabetes: Know the symptoms of high blood sugar. Follow your diabetes management plan as told by your doctor. Make sure you: ?Take insulin and medicines as told. ?Follow your exercise plan. ?Follow your meal plan. Eat on time. Do not skip meals. ?Check your blood sugar as often as told. Make sure you check before and after exercise. If you exercise longer or in a different way, check your blood sugar more often. ?Follow your sick day plan whenever you cannot eat or drink normally. Make this plan ahead of time with your doctor. Share your diabetes management plan with people in your workplace, school, and household. Check your pee for ketones when you are ill and as told by your doctor. Carry a card or wear jewelry that says that you have diabetes. Where to find more information [employer]: www.diabetes.org Contact a doctor if: Your blood sugar level is at or above 240 mg/dL (13.3 mmol/L) for 2 days in a row. You have problems keeping your blood sugar in your target range. You have high blood pressure often. You have signs of illness, such as: ?Feeling like you may vomit (feeling nauseous). ?Vomiting. ?A fever. Get help right away if: Your blood sugar monitor reads high even when you are taking insulin. You have trouble breathing. You have a change in how you think, feel, or act (mental status). You feel like you may vomit, and the feeling does not go away. You cannot stop vomiting. These symptoms may be an emergency. Get medical help right away. Call your local emergency services (911 in the [place] Do not wait to see if the symptoms will go away. Do not drive yourself to the hospital. Summary Hyperglycemia is when the sugar (glucose) level in your blood is too high. High blood sugar can happen to people who have or do not have diabetes. Make sure you drink enough fluids and follow your meal plan. Exercise as often as told by your doctor. Contact your doctor if you have problems keeping your blood sugar in your target range. This information is not intended to replace advice given to you by your health care provider. Make sure you discuss any questions you have with your health care provider. Document Revised: 06/07/2021 Document Reviewed: 06/07/2021 [email or web address] Patient Education 2022 [employer]. 09/28/2023 19:09:51 Blood Glucose Monitoring, Adult Blood Glucose Monitoring, Adult Monitoring your blood sugar (glucose) is an important part of managing your diabetes. Blood glucose monitoring involves checking your blood glucose as often as directed and keeping a log or record of your results over time. Checking your blood glucose regularly and keeping a blood glucose log can: Help you and your health care provider adjust your diabetes management plan as needed, including your medicines or insulin. Help you understand how food, exercise, illnesses, and medicines affect your blood glucose. Let you know what your blood glucose is at any time. You can quickly find out if you have low blood glucose (hypoglycemia) or high blood glucose (hyperglycemia). Your health care provider will set individualized treatment goals for you. Your goals will be based on your age, other medical conditions you have, and how you respond to diabetes treatment. Generally, the goal of treatment is to maintain the following blood glucose levels: Before meals (preprandial): 80 130 mg/dL (4.4 7.2 mmol/L). After meals (postprandial): below 180 mg/dL (10 mmol/L). A1C level: less than 7%. Supplies needed: Blood glucose meter. Test strips for your meter. Each meter has its own strips. You must use the strips that came with your meter. A needle to prick your finger (lancet). Do not use a lancet more than one time. A device that holds the lancet (lancing device). A journal or log book to write down your results. How to check your blood glucose Checking your blood glucose 1.Wash your hands for at least 20 seconds with soap and water. 2.Prick the side of your finger (not the tip) with the lancet. Do not use the same finger consecutively. 3.Gently rub the finger until a small drop of blood appears. 4.Follow instructions that come with your meter for inserting the test strip, applying blood to the strip, and using your blood glucose meter. 5.Write down your result and any notes in your log. Using alternative sites Some meters allow you to use areas of your body other than your finger (alternative sites) to test your blood. The most common alternative sites are the forearm, the thigh, and the palm of your hand. Alternative sites may not be as accurate as the fingers because blood flow is slower in those areas. This means that the result you get may be delayed, and it may be different from the result that you would get from your finger. Use the finger only, and do not use alternative sites, if: You think you have hypoglycemia. You sometimes do not know that your blood glucose is getting low (hypoglycemia unawareness). General tips and recommendations Blood glucose log Every time you check your blood glucose, write down your result. Also write down any notes about things that may be affecting your blood glucose, such as your diet and exercise for the day. This information can help you and your health care provider: ?Look for patterns in your blood glucose over time. ?Adjust your diabetes management plan as needed. Check if your meter allows you to download your records to a computer or if there is an jazmine for the meter. Most glucose meters store a record of glucose readings in the meter. If you have type 1 diabetes: Check your blood glucose 4 or more times a day if you are on intensive insulin therapy with multiple daily injections (MDI) or if you are using an insulin pump. Check your blood glucose: ?Before every meal and snack. ?Before bedtime. Also check your blood glucose: ?If you have symptoms of hypoglycemia. ?After treating low blood glucose. ?Before doing activities that create a risk for injury, like driving or using machinery. ?Before and after exercise. ?Two hours after a meal. ?Occasionally between 2:00 a.m. and 3:00 a.m., as directed. You may need to check your blood glucose more often, 6 10 times per day, if: ?You have diabetes that is not well controlled. ?You are ill. ?You have a history of severe hypoglycemia. ?You have hypoglycemia unawareness. If you have type 2 diabetes: Check your blood glucose 2 or more times a day if you take insulin or other diabetes medicines. Check your blood glucose 4 or more times a day if you are on intensive insulin therapy. Occasionally, you may also need to check your glucose between 2:00 a.m. and 3:00 a.m., as directed. Also check your blood glucose: ?Before and after exercise. ?Before doing activities that create a risk for injury, like driving or using machinery. You may need to check your blood glucose more often if: ?Your medicine is being adjusted. ?Your diabetes is not well controlled. ?You are ill. General tips Make sure you always have your supplies with you. After you use a few boxes of test strips, adjust (calibrate) your blood glucose meter by following instructions that came with your meter. If you have questions or need help, all blood glucose meters have a 24-hour hotline phone number available that you can call. Also contact your health care provider with questions or concerns you may have. Where to find more information The [place] [employer]: www.diabetes.org The Association of Diabetes [employer] Education Specialists: www.diabeteseducator.org Contact a health care provider if: Your blood glucose is at or above 240 mg/dL (13.3 mmol/L) for 2 days in a row. You have been sick or have had a fever for 2 days or longer, and you are not getting better. You have any of the following problems for more than 6 hours: ?You cannot eat or drink. ?You have nausea or vomiting. ?You have diarrhea. Get help right away if: Your blood glucose is lower than 54 mg/dL (3 mmol/L). You become confused, or you have trouble thinking clearly. You have difficulty breathing. You have moderate or large ketone levels in your urine. These symptoms may represent a serious problem that is an emergency. Do not wait to see if the symptoms will go away. Get medical help right away. Call your local emergency services (911 in the [place] Do not drive yourself to the hospital. Summary Monitoring your blood glucose is an important part of managing your diabetes. Blood glucose monitoring involves checking your blood glucose as often as directed and keeping a log or record of your results over time. Your health care provider will set individualized treatment goals for you. Your goals will be based on your age, other medical conditions you have, and how you respond to diabetes treatment. Every time you check your blood glucose, write down your result. Also, write down any notes about things that may be affecting your blood glucose, such as your diet and exercise for the day. This information is not intended to replace advice given to you by your health care provider. Make sure you discuss any questions you have with your health care provider. Document Revised: 05/22/2021 Document Reviewed: 05/22/2021 [email or web address] Patient Education 2022 [employer]. 09/28/2023 19:09:51 Nausea and Vomiting, Adult, Cejh-qv-Yaxl Nausea and Vomiting, Adult Nausea is feeling that you have an upset stomach and that you are about to vomit. Vomiting is when food in your stomach forcefully comes out of your mouth. Vomiting can make you feel weak. If you vomit, or if you are not able to drink enough fluids, you may not have enough water in your body (get dehydrated). If you do not have enough water in your body, you may: Feel tired. Feel thirsty. Have a dry mouth. Have cracked lips. Pee (urinate) less often. Older adults and people with other diseases or a weak body defense system (immune system) are at higher risk for not having enough water in the body. If you feel like you may vomit or you vomit, it is important to follow instructions from your doctor about how to take care of yourself. Follow these instructions at home: Watch your symptoms for any changes. Tell your doctor about them. Eating and drinking Take an ORS (oral rehydration solution). This is a drink that is sold at pharmacies and stores. Drink clear fluids in small amounts as you are able, such as: ?Water. ?Ice chips. ?Fruit juice that has water added (diluted fruit juice). ?Low-calorie sports drinks. Eat bland, lexk-qz-dqojsm foods in small amounts as you are able, such as: ?Bananas. ?Applesauce. ?Rice. ?Low-fat (lean) meats. ?Pojoaque. ?Crackers. Avoid drinking fluids that have a lot of sugar or caffeine in them. This includes energy drinks, sports drinks, and soda. Avoid alcohol. Avoid spicy or fatty foods. General instructions Take ozum-wgk-ddnpics and prescription medicines only as told by your doctor. Drink enough fluid to keep your pee (urine) pale yellow. Wash your hands often with soap and water for at least 20 seconds. If you cannot use soap and water, use hand flight engineer inspector. Make sure that everyone in your home washes their hands well and often. Rest at home until you feel better. Watch your condition for any changes. Take slow and deep breaths when you feel like you may vomit. Keep all follow-up visits. Contact a doctor if: Your symptoms get worse. You have new symptoms. You have a fever. You cannot drink fluids without vomiting. You feel like you may vomit for more than 2 days. You feel light-headed or dizzy. You have a headache. You have muscle cramps. You have a rash. You have pain while peeing. Get help right away if: You have pain in your chest, neck, arm, or jaw. You feel very weak or you faint. You vomit again and again. You have vomit that is bright red or looks like black coffee grounds. You have bloody or black poop (stools) or poop that looks like tar. You have a very bad headache, a stiff neck, or both. You have very bad pain, cramping, or bloating in your belly (abdomen). You have trouble breathing. You are breathing very quickly. Your heart is beating very quickly. Your skin feels cold and clammy. You feel confused. You have signs of losing too much water in your body, such as: ?Dark pee, very little pee, or no pee. ?Cracked lips. ?Dry mouth. ?Sunken eyes. ?Sleepiness. ?Weakness. These symptoms may be an emergency. Get help right away. Call 911. Do not wait to see if the symptoms will go away. Do not drive yourself to the hospital. Summary Nausea is feeling that you have an upset stomach and that you are about to vomit. Vomiting is when food in your stomach comes out of your mouth. Follow instructions from your doctor about eating and drinking. Take ljbd-usu-mloqcnz and prescription medicines only as told by your doctor. Contact your doctor if your symptoms get worse or you have new symptoms. Keep all follow-up visits. This information is not intended to replace advice given to you by your health care provider. Make sure you discuss any questions you have with your health care provider. Document Revised: 02/28/2022 Document Reviewed: 02/28/2022 [email or web address] Patient Education 2022 [employer]. Follow Up Care 09/28/2023 14:17:47 With:BHANU MAR Address: [facility] [address], [facility] [place] [address] Business (1) When:10/01/2023 19:00:21 Comments:Follow-up with your primary care provider in 3 to 5 days. If symptoms worsen, do not improve, or new symptoms arise please report back to emergency department for further evaluation. [facility] 01-30-2023 Note History of Present I llness Here today for evaluation of possible obstructive sleep apnea. The patient reports that [place] and previously was on oxygen supplementation at nighttime. Recently she has been having worsening fatigue and daytime sleepiness and was told by her spouse that she snores loudly at night and stops breathing while asleep. She reports her weight has been relatively stable. Review of Systems Constitutional: no fever, no chills, no sweats, no weakness Skin: no Jaundice, no rash, no lesions, no petechiae ENT: no ear pain, no sore throat, no congestion, no hoarseness Respiratory: Denies shortness of breath, cough or wheezing Cardiovascular: no chest pain, no palpitations, no edema Gastrointestinal: no nausea, no vomiting, no diarrhea, no GI bleeding Genitourinary: no dysuria, no hematuria, no discharge, no pain Musculoskeletal: no back pain, no trauma Neurologic: no headache, no dizziness, no numbness, no weakness Psychiatric: no irritability, no mood swings/depression. Heme/Lymph: no bleeding tendency, no bruising tendency, no petechiae, no swollen nodes Allergy/Immunologic: no seasonal allergies, no food allergies, no recurrent infections, no impaired immunity Additional ROS info: Except as noted in the above Review of Systems and in the History of Present Illness all other systems have been reviewed and are negative or noncontributory. Physical Exam General: Awake, alert, in no acute distress Skin: warm, dry Head: no trauma, normocephalic. Prolonged soft palate Neck: Trachea midline, no adenopathy, no tenderness Eye: normal conjunctiva, sclera clear ENMT: TM's clear, oral mucosa moist, no pharyngeal erythema or exudate Cardiovascular: regular rate and rhythm, normal peripheral perfusion Respiratory: Good breath sounds to both lung clements without wheezing or crackles. Gastrointestinal: soft, non distended, no tenderness, no guarding. Back: No tenderness, Normal ROM, Normal alignment. Extremities: no deformity, no trauma Neurological: oriented x 4, LOC appropriate for age, CN II-XII intact, motor strength equal & normal bilaterally, sensation equal & normal bilaterally, speech normal Psychiatric: cooperative, affect appropriate for age, normal judgement, normal psychiatric thoughts. Assessment/Plan 1. OFELIA (obstructive sleep apnea) (G47.33: Obstructive sleep apnea (adult) (pediatric)) Highly likely given the patient's symptoms, physical examination and risk factors. The etiology of obstructive sleep apnea and methods of diagnoses and treatment were discussed with the patient in details. The patient is agreeable to testing and treatment if clinically indicated. I will arrange for sleep study and see her back after her testing is completed. She will call me back in the meantime if any issues. Ordered: Sleep Study Baseline Follow-up With When Contact Information Patito LEE, Tera Mac, PUL, LADI [address] 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 Historical No qualifying data Medications atorvastatin 20 mg Tab, 20 mg= 1 tab(s), Oral, Daily buPROPion 300 mg/24 hours ER Tab, 300 mg= 1 tab(s), Oral, Daily FLUoxetine 20 mg Cap, 60 mg= 3 cap(s), Oral, Daily fluticasone-salmeterol 232 mcg-14 mcg/inh inhalation powder, 1 puff(s), Inhalation, BID fosfomycin 3 g oral granule for reconstitution, 3 gm= 1 EA, Oral, q48hr hydrOXYzine hydrochloride 50 mg oral tablet, 50 mg= 1 tab(s), Oral, QID, PRN Lantus 100 units/mL Injection-Insulin, 45 - 50 unis(s), SubCutaneous, Once a day (at bedtime) losartan 25 mg Tab, 25 mg= 1 tab(s), Oral, Daily metformin 500 mg Tab, 500 mg= 1 tab(s), Oral, BID NovoLOG 100 units/mL injectable solution, 4 unit(s), SubCutaneous, TIDAC Pantoprazole [address] Tab, 40 mg= 1 tab(s), Oral, Daily prazosin 1 mg Cap, 3 mg= 3 cap(s), Oral, Bedtime pregabalin 100 mg Cap, 100 mg= 1 cap(s), Oral, TID Zofran ODT 4 mg Tab-Dis, 4 mg= 1 tab(s), Oral, TID Allergies codeine (Rash) [facility] Comment on above: Result Comment: Elec tronically Signed By: Patiot LEE, Tera Mac\.br\Date and Time Signed: 01/30/23 10:21 EDT 01-01-2023 Hospital Discharge instructions Follow Up Care 01/01/2023 15:05:23 With:Tera Caputo MD, PUL, LADI Address: [address] [place] [address] [facility] (Heart & Vascular) [place] [address]- When: Unknown Comments:after his testing is completed [facility] 12-06-2022 Note [facility] 12-03-2022 Note [facility] 12-03-2022 Note [facility] 11-30-2022 Note [facility] 11-16-2022 Note [facility] 11-14-2022 Note [facility] 11-14-2022 Note [facility] 11-11-2022 Note [facility] 11-07-2022 Hospital Discharge instructions Patient Education 11/07/2022 12:04:02 Hyperglycemia Hyperglycemia Hyperglycemia occurs when the level of sugar (glucose) in the blood is too high. Glucose is a type of sugar that provides the body's main source of energy. Certain hormones (insulin and glucagon) control the level of glucose in the blood. Insulin lowers blood glucose, and glucagon increases blood glucose. Hyperglycemia can result from having too little insulin in the bloodstream, or from the body not responding normally to insulin. Hyperglycemia occurs most often in people who have diabetes (diabetes mellitus), but it can happen in people who do not have diabetes. It can develop quickly, and it can be life-threatening if it causes you to become severely dehydrated (diabetic ketoacidosis or hyperglycemic hyperosmolar state). Severe hyperglycemia is a medical emergency. What are the causes? If you have diabetes, hyperglycemia may be caused by: Diabetes medicine. Medicines that increase blood glucose or affect your diabetes control. Not eating enough, or not eating often enough. Changes in physical activity level. Being sick or having an infection. If you have prediabetes or undiagnosed diabetes: Hyperglycemia may be caused by those conditions. If you do not have diabetes, hyperglycemia may be caused by: Certain medicines, including steroid medicines, beta-blockers, epinephrine, and thiazide diuretics. Stress. Serious illness. Surgery. Diseases of the pancreas. Infection. What increases the risk? Hyperglycemia is more likely to develop in people who have risk factors for diabetes, such as: Having a family member with diabetes. Having a gene for type 1 diabetes that is passed from parent to child (inherited). Living in an area with cold weather conditions. Exposure to certain viruses. Certain conditions in which the body's disease-fighting (immune) system attacks itself (autoimmune disorders). Being overweight or obese. Having an inactive (sedentary) lifestyle. Having been diagnosed with insulin resistance. Having a history of prediabetes, gestational diabetes, or polycystic ovarian syndrome (PCOS). Being of Irish-Mozambican, -Irish, /, or / descent. What are the signs or symptoms? Hyperglycemia may not cause any symptoms. If you do have symptoms, they may include early warning signs, such as: Increased thirst. Hunger. Feeling very tired. Needing to urinate more often than usual. Blurry vision. Other symptoms may develop if hyperglycemia gets worse, such as: Dry mouth. Loss of appetite. Fruity-smelling breath. Weakness. Unexpected or rapid weight gain or weight loss. Tingling or numbness in the hands or feet. Headache. Skin that does not quickly return to normal after being lightly pinched and released (poor skin turgor). Abdominal pain. Cuts or bruises that are slow to heal. How is this diagnosed? Hyperglycemia is diagnosed with a blood test to measure your blood glucose level. This blood test is usually done while you are having symptoms. Your health care provider may also do a physical exam and review your medical history. You may have more tests to determine the cause of your hyperglycemia, such as: A fasting blood glucose (FBG) test. You will not be allowed to eat (you will fast) for at least 8 hours before a blood sample is taken. An A1c (hemoglobin A1c) blood test. This provides information about blood glucose control over the previous 2 3 months. An oral glucose tolerance test (OGTT). This measures your blood glucose at two times: ?After fasting. This is your baseline blood glucose level. ?Two hours after drinking a beverage that contains glucose. How is this treated? Treatment depends on the cause of your hyperglycemia. Treatment may include: Taking medicine to regulate your blood glucose levels. If you take insulin or other diabetes medicines, your medicine or dosage may be adjusted. Lifestyle changes, such as exercising more, eating healthier foods, or losing weight. Treating an illness or infection, if this caused your hyperglycemia. Checking your blood glucose more often. Stopping or reducing steroid medicines, if these caused your hyperglycemia. If your hyperglycemia becomes severe and it results in hyperglycemic hyperosmolar state, you must be hospitalized and given IV fluids. Follow these instructions at home: General instructions Take wptd-oaf-clvazvc and prescription medicines only as told by your health care provider. Do not use any products that contain nicotine or tobacco, such as cigarettes and e-cigarettes. If you need help quitting, ask your health care provider. Limit alcohol intake to no more than 1 drink per day for non women and 2 drinks per day for men. One drink equals 12 oz of beer, 5 oz of wine, or 1 oz of hard liquor. Learn to manage stress. If you need help with this, ask your health care provider. Keep all follow-up visits as told by your health care provider. This is important. Eating and drinking Maintain a healthy weight. Exercise regularly, as directed by your health care provider. Stay hydrated, especially when you exercise, get sick, or spend time in hot temperatures. Eat healthy foods, such as: ?Lean proteins. ?Complex carbohydrates. ?Fresh fruits and vegetables. ?Low-fat dairy products. ?Healthy fats. Drink enough fluid to keep your urine clear or pale yellow. If you have diabetes: Make sure you know the symptoms of hyperglycemia. Follow your diabetes management plan, as told by your health care provider. Make sure you: ?Take your insulin and medicines as directed. ?Follow your exercise plan. ?Follow your meal plan. Eat on time, and do not skip meals. ?Check your blood glucose as often as directed. Make sure to check your blood glucose before and after exercise. If you exercise longer or in a different way than usual, check your blood glucose more often. ?Follow your sick day plan whenever you cannot eat or drink normally. Make this plan in advance with your health care provider. Share your diabetes management plan with people in your workplace, school, and household. Check your urine for ketones when you are ill and as told by your health care provider. Carry a medical alert card or wear medical alert jewelry. Contact a health care provider if: Your blood glucose is at or above 240 mg/dL (13.3 mmol/L) for 2 days in a row. You have problems keeping your blood glucose in your target range. You have frequent episodes of hyperglycemia. Get help right away if: You have difficulty breathing. You have a change in how you think, feel, or act (mental status). You have nausea or vomiting that does not go away. These symptoms may represent a serious problem that is an emergency. Do not wait to see if the symptoms will go away. Get medical help right away. Call your local emergency services (911 in the [place] Do not drive yourself to the hospital. Summary Hyperglycemia occurs when the level of sugar (glucose) in the blood is too high. Hyperglycemia is diagnosed with a blood test to measure your blood glucose level. This blood test is usually done while you are having symptoms. Your health care provider may also do a physical exam and review your medical history. If you have diabetes, follow your diabetes management plan as told by your health care provider. Contact your health care provider if you have problems keeping your blood glucose in your target range. This information is not intended to replace advice given to you by your health care provider. Make sure you discuss any questions you have with your health care provider. Document Released: 02/17/2002 Document Revised: 05/11/2017 Document Reviewed: 05/11/2017 [email or web address] Patient Education 2020 [employer]. 11/07/2022 12:04:02 Urinary Tract Infection, Adult Urinary Tract Infection, Adult A urinary tract infection (UTI) is an infection of any part of the urinary tract. The urinary tract includes the kidneys, ureters, bladder, and urethra. These organs make, store, and get rid of urine in the body. Your health care provider may use other names to describe the infection. An upper UTI affects the ureters and kidneys (pyelonephritis). A lower UTI affects the bladder (cystitis) and urethra (urethritis). What are the causes? Most urinary tract infections are caused by bacteria in your genital area, around the entrance to your urinary tract (urethra). These bacteria grow and cause inflammation of your urinary tract. What increases the risk? You are more likely to develop this condition if: You have a urinary catheter that stays in place (indwelling). You are not able to control when you urinate or have a bowel movement (you have incontinence). You are female and you: ?Use a spermicide or diaphragm for control. ?Have low estrogen levels. ?Are . You have certain genes that increase your risk (genetics). You are sexually active. You take antibiotic medicines. You have a condition that causes your flow of urine to slow down, such as: ?An enlarged prostate, if you are male. ?Blockage in your urethra (stricture). ?A kidney stone. ?A nerve condition that affects your bladder control (neurogenic bladder). ?Not getting enough to drink, or not urinating often. You have certain medical conditions, such as: ?Diabetes. ?A weak disease-fighting system (immunesystem). ?Sickle cell disease. ?Gout. ?Spinal cord injury. What are the signs or symptoms? Symptoms of this condition include: Needing to urinate right away (urgently). Frequent urination or passing small amounts of urine frequently. Pain or burning with urination. Blood in the urine. Urine that smells bad or unusual. Trouble urinating. Cloudy urine. Vaginal discharge, if you are female. Pain in the abdomen or the lower back. You may also have: Vomiting or a decreased appetite. Confusion. Irritability or tiredness. A fever. Diarrhea. The first symptom in older adults may be confusion. In some cases, they may not have any symptoms until the infection has worsened. How is this diagnosed? This condition is diagnosed based on your medical history and a physical exam. You may also have other tests, including: Urine tests. Blood tests. Tests for sexually transmitted infections (STIs). If you have had more than one UTI, a cystoscopy or imaging studies may be done to determine the cause of the infections. How is this treated? Treatment for this condition includes: Antibiotic medicine. Acyn-ikl-xpmadiz medicines to treat discomfort. Drinking enough water to stay hydrated. If you have frequent infections or have other conditions such as a kidney stone, you may need to see a health care provider who specializes in the urinary tract (urologist). In rare cases, urinary tract infections can cause sepsis. Sepsis is a life-threatening condition that occurs when the body responds to an infection. Sepsis is treated in the hospital with IV antibiotics, fluids, and other medicines. Follow these instructions at home: Medicines Take wyoz-izx-pduvcff and prescription medicines only as told by your health care provider. If you were prescribed an antibiotic medicine, take it as told by your health care provider. Do not stop using the antibiotic even if you start to feel better. General instructions Make sure you: ?Empty your bladder often and completely. Do not hold urine for long periods of time. ?Empty your bladder after sex. ?Wipe from front to back after a bowel movement if you are female. Use each tissue one time when you wipe. Drink enough fluid to keep your urine pale yellow. Keep all follow-up visits as told by your health care provider. This is important. Contact a health care provider if: Your symptoms do not get better after 1 2 days. Your symptoms go away and then return. Get help right away if you have: Severe pain in your back or your lower abdomen. A fever. Nausea or vomiting. Summary A urinary tract infection (UTI) is an infection of any part of the urinary tract, which includes the kidneys, ureters, bladder, and urethra. Most urinary tract infections are caused by bacteria in your genital area, around the entrance to your urinary tract (urethra). Treatment for this condition often includes antibiotic medicines. If you were prescribed an antibiotic medicine, take it as told by your health care provider. Do not stop using the antibiotic even if you start to feel better. Keep all follow-up visits as told by your health care provider. This is important. This information is not intended to replace advice given to you by your health care provider. Make sure you discuss any questions you have with your health care provider. Document Released: 06/03/2006 Document Revised: 08/11/2019 Document Reviewed: 03/03/2019 [email or web address] Patient Education 2020 [email or web address] Follow Up Care 11/07/2022 09:18:59 With:BHANU MAR Address: [address], [place] [address]- Business (1) When:11/10/2022 11:41:59 [facility] 11-07-2022 Evaluation + Plan note Diagnostic Tests PendingUrine Culture 11/07/22 [facility] 10-17-2022 Note [facility] 10-15-2022 Note [facility] 10-10-2022 Emergency department Note Pt aware lyft has been set up for her and she will have to pay bill. Pt verbalized understanding. [facility] 10-10-2022 Emergency department Note Pt aware lyft has been set up for her and she will have to pay bill. Pt verbalized understanding. Current blood glucose 279. Pt eating without difficulty, elaine has slightly improved. Medicated per MAR. Awaiting to speak with provider for update. Cosigned insulin with [employer] Pt c/o nausea and elaine. Dr. Rader made aware. Per lab, d-dimer hemolyzed for third time. Communicated with dr. Eversman Current blood glucose 343. EMERGENCY DEPARTMENT - VISIT NOTE HISTORY OF PRESENT ILLNESS Chief Complaint Patient presents with Chart Pt states her blood glucose has been >300 x2 weeks, and today she developed chest pain in the center of her chest. She has been in touch with her PCP and they are adjusting her insulin and metformin but she was advised to come to the ED d/t the high glucose and chest pain. States she had a stroke in August 2021 and does have some deficits such as slurred speech, neuropathy, vision changes. VSS. States some SOB intermittently. Medical Technologist Prn: not needed - patient preferred language is Hungarian. 42-year-old female complains of 6/10 chest pain which she describes as both sharp and tightness that has been relatively constant the last couple hours. Her significant other's car broke down close to here. She recently moved here from [place]. No history heart disease but she has had a stroke in the past and has hypertension, diabetes, and mild CKD. She states that the last couple weeks blood sugars have been very erratic and running in the 3 and 400s slight shortness of breath aggravated with exertion along aggravated the tightness. No significant family history of heart disease. Positive family history of diabetes. She denies tobacco use. No history of venous thromboembolism. She has had some tingling in the left arm in the left a couple hours as well. History provided by: Patient and significant otherLanguage almond roaster used: No Chest symptoms/complaints Pain location: Substernal area Pain quality: tightness Pain radiates to: Does not radiate Pain severity: Mild Onset quality: Gradual Duration: 2 hours Timing: Constant Progression: Unchanged Chronicity: New Relieved by: Nothing Worsened by: Nothing Ineffective treatments: None tried Associated symptoms: nausea and shortness of breath Associated symptoms: no abdominal pain, no altered mental status, no cough, no dizziness, no fever, no lower extremity edema, no numbness, no syncope and no vomiting Risk factors: diabetes mellitus and hypertension Risk factors: no prior DVT/PE and no smoking ---- REVIEW OF SYSTEMS ------ Review of Systems Constitutional: Negative for fever. HENT: Negative for facial swelling. Eyes: Negative for redness. Respiratory: Positive for shortness of breath. Negative for cough. Cardiovascular: Positive for chest pain. Negative for syncope. Gastrointestinal: Positive for constipation and nausea. Negative for abdominal pain and vomiting. Genitourinary: Negative for dysuria. Musculoskeletal: Negative for neck pain and neck stiffness. Skin: Negative for rash. Neurological: Negative for dizziness, speech difficulty and numbness. Psychiatric/Behavioral: Negative for confusion. -------- PAST HISTORY Pertinent Past History: Diabetes, stroke, CKD, hypertension No past medical history on file. Pertinent Family History: Diabetes No family history on file. Pertinent Social History: No tobacco ------ PHYSICAL EXAM BP 150/93 Pulse (!) 102 Temp 97.8 F (36.6 C) (Oral) Resp 18 Wt 250 lb (113.4 kg) SpO2 96% Physical Exam Vitals and nursing note reviewed. Constitutional: General: She is not in acute distress. Appearance: She is not ill-appearing, toxic-appearing or diaphoretic. HENT: Head: Normocephalic. Right Ear: External ear normal. Left Ear: External ear normal. Nose: Nose normal. Mouth/Throat: Mouth: Mucous membranes are moist. Pharynx: Oropharynx is clear. Eyes: Extraocular Movements: Extraocular movements intact. Conjunctiva/sclera: Conjunctivae normal. Pupils: Pupils are equal, round, and reactive to light. Cardiovascular: Rate and Rhythm: Normal rate and regular rhythm. Pulses: Normal pulses. Heart sounds: Normal heart sounds. Pulmonary: Effort: Pulmonary effort is normal. No respiratory distress. Breath sounds: Normal breath sounds. Abdominal: General: Abdomen is flat. There is no distension. Tenderness: There is no abdominal tenderness. Musculoskeletal: General: No swelling or tenderness. Normal range of motion. Cervical back: Normal range of motion. Right lower leg: No edema. Left lower leg: No edema. Skin: General: Skin is warm and dry. Capillary Refill: Capillary refill takes less than 2 seconds. Neurological: General: No focal deficit present. Mental Status: She is alert and oriented to person, place, and time. Psychiatric: Mood and Affect: Mood normal. Behavior: Behavior normal. MEDICAL DECISION MAKING and ED COURSE EMERGENCY DEPARTMENT EKG INTERPRETATION Rhythm: Normal sinus rhythm Rate: 99 NORMAL Normal conduction / intervals No atrial or ventricular hypertrophy No ST-T wave changes Comparison to prior: none Impression: Normal sinus rhythm Interpretation by Andrei Rader MD IMPRESSION: No acute process. Course: ED Course as of 10/10/22 0127 Jia Oct 09, 2022 2339 Nursing medic having difficult time in blood from the patient. I placed a left 20 gauge EJ catheter for D-dimer and delta troponin. No complications. Patient tolerated well. [GE] ThuOct 10, 2022 0010 Repeat EKG shows normal sinus rhythm with no acute STT wave changes at a rate of 89. Repeat troponin is normal. She states that her chest tightness while not completely resolved is improved. Her D-dimer is normal. PERC and well's are both 0. Nothing to suggest a pulmonary embolus. 4 units of lispro and a 500 cc bolus of saline have been ordered. Toradol 15 mg IV. [GE] 0122 Repeat blood sugar 279 after lispro and 500 cc saline bolus. Patient states that she only has chest tightness when she moves or twists her torso. This suggests a musculoskeletal source. When she is perfectly still long in the bed she has no chest tightness. Recommended Tylenol or ibuprofen. Nothing to suggest an acute cardiac or pulmonary condition. Improvement in her blood sugar. She is going to be in touch with primary care regarding any adjustments in her insulin this week. She is to return if any problems [GE] ED Course User Index [GE] Andrei Rader MD Assessment & Plan: As above IMPRESSION AND DISPOSITION Clinical Impression Diagnosis Comment Chest wall discomfort [R07.89] Hyperglycemia [R73.9] Disposition: Home The patient has received a medical screening examination and within reasonable clinical confidence an emergency medical condition was identified and has been stabilized. Counseling: Spoke with the other family member and patient and discussed today s findings, in addition to providing specific details for the plan of care and expected course. They were given the opportunity to ask questions. Discussed return precautions and importance of follow-up. Advised to follow-up with PCP Advised to return to the ED for changing or worsening symptoms, new symptoms, complaint specific precautions, and precautions listed on the discharge paperwork. Andrei Rader MD documented in this encounter [facility] 10-10-2022 Hospital Discharge instructions Andrei Rader MD - 10/10/2022 1:26 AM EST Tylenol or ibuprofen for chest discomfort. Return if any shortness of breath or worsening pain. Likely this is inflammation in the muscles in your chest wall. Return if any problems, see your doctor this week Procedures done during this visit: None The following attachments cannot be sent through Care Everywhere.High Blood Sugar Discharge Instructions, Adult (Hungarian)Costochondritis Discharge Instructions (Hungarian)Chest Pain That Is Not Caused by the Heart Discharge Instructions (Hungarian)documented in this encounter [facility] 10-10-2022 Emergency department Note Current blood glucose 279. [facility] 10-10-2022 Emergency department Note Pt eating without difficulty, elaine has slightly improved. Medicated per NOV. Awaiting to speak with provider for update. [facility] 10-10-2022 Emergency department Note Cosigned insulin with Temitope UNDER[place]OD [facility] 10-09-2022 Emergency department Note Pt c/o nausea and elaine. Dr. Rader made aware. [facility] 10-09-2022 Emergency department Note Per lab, d-dimer hemolyzed for third time. Communicated with dr. Rader [facility] 10-09-2022 Emergency department Note Current blood glucose 343. [facility] 10-09-2022 Physician Emergency department Note EMERGENCY DEPARTMENT - VISIT NOTE HISTORY OF PRESENT ILLNESS Chief Complaint Patient presents with Chart Pt states her blood glucose has been >300 x2 weeks, and today she developed chest pain in the center of her chest. She has been in touch with her PCP and they are adjusting her insulin and metformin but she was advised to come to the ED d/t the high glucose and chest pain. States she had a stroke in August 2021 and does have some deficits such as slurred speech, neuropathy, vision changes. VSS. States some SOB intermittently. Medical Technologist Prn: not needed - patient preferred language is Hungarian. 42-year-old female complains of 6/10 chest pain which she describes as both sharp and tightness that has been relatively constant the last couple hours. Her significant other's car broke down close to here. She recently moved here from [place]. No history heart disease but she has had a stroke in the past and has hypertension, diabetes, and mild CKD. She states that the last couple weeks blood sugars have been very erratic and running in the 3 and 400s slight shortness of breath aggravated with exertion along aggravated the tightness. No significant family history of heart disease. Positive family history of diabetes. She denies tobacco use. No history of venous thromboembolism. She has had some tingling in the left arm in the left a couple hours as well. History provided by: Patient and significant otherLanguage almond roaster used: No Chest symptoms/complaints Pain location: Substernal area Pain quality: tightness Pain radiates to: Does not radiate Pain severity: Mild Onset quality: Gradual Duration: 2 hours Timing: Constant Progression: Unchanged Chronicity: New Relieved by: Nothing Worsened by: Nothing Ineffective treatments: None tried Associated symptoms: nausea and shortness of breath Associated symptoms: no abdominal pain, no altered mental status, no cough, no dizziness, no fever, no lower extremity edema, no numbness, no syncope and no vomiting Risk factors: diabetes mellitus and hypertension Risk factors: no prior DVT/PE and no smoking ---- REVIEW OF SYSTEMS ------ Review of Systems Constitutional: Negative for fever. HENT: Negative for facial swelling. Eyes: Negative for redness. Respiratory: Positive for shortness of breath. Negative for cough. Cardiovascular: Positive for chest pain. Negative for syncope. Gastrointestinal: Positive for constipation and nausea. Negative for abdominal pain and vomiting. Genitourinary: Negative for dysuria. Musculoskeletal: Negative for neck pain and neck stiffness. Skin: Negative for rash. Neurological: Negative for dizziness, speech difficulty and numbness. Psychiatric/Behavioral: Negative for confusion. -------- PAST HISTORY Pertinent Past History: Diabetes, stroke, CKD, hypertension No past medical history on file. Pertinent Family History: Diabetes No family history on file. Pertinent Social History: No tobacco ------ PHYSICAL EXAM BP 150/93 Pulse (!) 102 Temp 97.8 F (36.6 C) (Oral) Resp 18 Wt 250 lb (113.4 kg) SpO2 96% Physical Exam Vitals and nursing note reviewed. Constitutional: General: She is not in acute distress. Appearance: She is not ill-appearing, toxic-appearing or diaphoretic. HENT: Head: Normocephalic. Right Ear: External ear normal. Left Ear: External ear normal. Nose: Nose normal. Mouth/Throat: Mouth: Mucous membranes are moist. Pharynx: Oropharynx is clear. Eyes: Extraocular Movements: Extraocular movements intact. Conjunctiva/sclera: Conjunctivae normal. Pupils: Pupils are equal, round, and reactive to light. Cardiovascular: Rate and Rhythm: Normal rate and regular rhythm. Pulses: Normal pulses. Heart sounds: Normal heart sounds. Pulmonary: Effort: Pulmonary effort is normal. No respiratory distress. Breath sounds: Normal breath sounds. Abdominal: General: Abdomen is flat. There is no distension. Tenderness: There is no abdominal tenderness. Musculoskeletal: General: No swelling or tenderness. Normal range of motion. Cervical back: Normal range of motion. Right lower leg: No edema. Left lower leg: No edema. Skin: General: Skin is warm and dry. Capillary Refill: Capillary refill takes less than 2 seconds. Neurological: General: No focal deficit present. Mental Status: She is alert and oriented to person, place, and time. Psychiatric: Mood and Affect: Mood normal. Behavior: Behavior normal. MEDICAL DECISION MAKING and ED COURSE EMERGENCY DEPARTMENT EKG INTERPRETATION Rhythm: Normal sinus rhythm Rate: 99 NORMAL Normal conduction / intervals No atrial or ventricular hypertrophy No ST-T wave changes Comparison to prior: none Impression: Normal sinus rhythm Interpretation by Andrei Rader MD IMPRESSION: No acute process. Course: ED Course as of 10/10/22 0127 Jia Oct 09, 2022 2339 Nursing medic having difficult time in blood from the patient. I placed a left 20 gauge EJ catheter for D-dimer and delta troponin. No complications. Patient tolerated well. [GE] Fri Oct 10, 2022 0010 Repeat EKG shows normal sinus rhythm with no acute STT wave changes at a rate of 89. Repeat troponin is normal. She states that her chest tightness while not completely resolved is improved. Her D-dimer is normal. PERC and well's are both 0. Nothing to suggest a pulmonary embolus. 4 units of lispro and a 500 cc bolus of saline have been ordered. Toradol 15 mg IV. [GE] 0122 Repeat blood sugar 279 after lispro and 500 cc saline bolus. Patient states that she only has chest tightness when she moves or twists her torso. This suggests a musculoskeletal source. When she is perfectly still long in the bed she has no chest tightness. Recommended Tylenol or ibuprofen. Nothing to suggest an acute cardiac or pulmonary condition. Improvement in her blood sugar. She is going to be in touch with primary care regarding any adjustments in her insulin this week. She is to return if any problems [GE] ED Course User Index [GE] Andrei Rader MD Assessment & Plan: As above IMPRESSION AND DISPOSITION Clinical Impression Diagnosis Comment Chest wall discomfort [R07.89] Hyperglycemia [R73.9] Disposition: Home The patient has received a medical screening examination and within reasonable clinical confidence an emergency medical condition was identified and has been stabilized. Counseling: Spoke with the other family member and patient and discussed today s findings, in addition to providing specific details for the plan of care and expected course. They were given the opportunity to ask questions. Discussed return precautions and importance of follow-up. Advised to follow-up with PCP Advised to return to the ED for changing or worsening symptoms, new symptoms, complaint specific precautions, and precautions listed on the discharge paperwork. Andrei Rader MD [employer] Work Phone: Evaluation + Plan note Future Appointments Appointment Date:01/30/2023 09:30:00 AM Scheduled Provider: Location:[facility].Sleep Clinic Appointment Type:HISTOLOGY TECH Sleep Study Clinic Follow Up (FT) [facility] Evaluation note Diagnosis Chest wall discomfort- Primary Painful respiration Hyperglycemia Other abnormal glucose [facility] Extremities: No peripheral edemaNeurological: Awake, alert, orientedENMT: Moist mucous membranesHead/Neck: Normocephalic, atraumaticRespiratory/Thorax: Bilateral equal breath soundsMusculoskeletal: Mo ving all extremities with equal strengthGastrointestinal: Soft, nontender, nondistended,Constitutional: Awake, alert, oriented, no acute distressSkin: Warm and dryEyes: Extraocular muscles intactCardiovascular: Regular rate and rhythmPsychological: Cooperative [facility] Narrative No data available for this section [facility] Discharge instructions* Activity:activity as tolerated. May shower. * Labs 1 (Modify Template):Lab Test(s): Basic Metabolic PanelDate To Be Drawn: 11/19/2022Fax Results To: Dr. Christina Rodriguez, pcp * Additional Orders:Additional Instructions: 1. During your hospitalization you were diagnosed with acute kidney injury, urinary tract infection, pyelonephritis, right renal calculi with a recent urinary tract infection secondary to ESBL. Repeat urine culture here showed no growth. You received 5 days of IV meropenem for the suspected urinary tract infection. 2. For the renal calculi, you underwentureter stent by Dr. Mcnally on November 14. Patient will need to follow-up with urology in 2 weeks after discharge. Please call office ahead of time to schedule a KUB x-ray prior to that appointment.3. Ac barney kidney injury was managed by Dr. Galeano in the hospital. Renal failure improved with IV fluids and midodrine. Since blood pressure is stable midodrine was stopped at discharge. You will need to follow-up with Dr. Galeano in the next week for the acute kidney injury.4. Recommend repeat BMP on day 11/19 to confirm that renal function continues to improve.5. Due to the hypotension in the hospital we will continue to hold the prazosin, metoprolol and losartan at discharge. Please monitor thisclosely at home and talk to your primary care physician about restarting these medications in the future. 6. Discharge with a few days of percocet for pain management. If pain worsens, call urology or present to the ER for worsening pain. May use tylenol for pain. 7. Will discharge to home with antibiotics. Antibiotics ciprofloxacin.8. Please monitor the constipation at home. May take rzru-bci-[id number] Colace or MiraLAX to assist with constipation.9. Thank you for allowing us to participate in your care at [facility]. * Follow Up Appointment 1:Physician/Dept/Service: Dr. Gonzalez for Referral: Hospital Follow-upCall to Schedule in: 2 weeksScheduled Date/Time: 24-Nov-2022 14:45Location: [address] [address]Phone Number: [phone] * Follow Up Appointment 2:Physician/Dept/Service: Dr. Garcia for Referral: Hospital Follow-upLocation: [address] [place], [place] [address]Phone Number: [phone]: Please call and schedule an appointment within 1 week of your hospital Discharge * Follow Up Appointment 3:Physician/Dept/Service: Amy for Referral: f/u hospitalComments: Please follow-up with a Primary care Physician [facility] No data available for this section [facility] No data available for this section [facility] Summary Purpose Family History No Family History Records FoundUnknown Family Member Name Dates Details Family history of diabetes m ellitus: Mother, Father, Sister, Brother(V18.0, Z83.3) Status:Active Family history of hypertensi on: Mother(V17.49, Z82.49) Status:Active Unknown Family Member Name Dates Details Family history of diabetes m ellitus: Mother, Father, Sister, Brother(V18.0, Z83.3) Status:Active Family history of hypertensi on: Mother(V17.49, Z82.49) Status:Active Unknown Family Member Name Dates Details Family history of diabetes m ellitus: Mother, Father, Sister, Brother(V18.0, Z83.3) Status:Active Family history of hypertensi on: Mother(V17.49, Z82.49) Status:Active Advance Directives No Advanced Directives Records FoundNo Advanced Directives Records FoundNo Advanced Directives Records FoundNo Advanced Directives Records FoundNo Advanced Directives Records FoundNo Advanced Directives Records FoundNo Advanced Directives Records Found Reason for Referral * VELVET Additional Source Comments Reason for Visit (unrecogniz ed section and content) Reason Comments Chart Pt states her blood glucose has been >300 x2 weeks, and today she developed chest pain in the center of her chest. She has been in touch with her PCP and they are adjusting her insulin and metformin but she was advised to come to the ED d/t the high glucose and chest pain. States she had a stroke in August 2021 and does have some deficits such as slurred speech, neuropathy, vision changes. VSS. States some SOB intermittently. Scheduled Active and Recently Administ ered Medications (unrecognized section and content) Medication Order 10/08/2022 10/09/2022 10/10/2022 insulin lispro (HumaLOG) 100 UNIT/ML injection (COMPLETED) 4 Units, Subcutaneous, ONCE, 1 dose, On Thu10/10/22 at 0041 0029 (Given - Provid er: Maricruz Wing RN) ketorolac (TORADOL) 30 MG/ML injection (COMPLETED) 15 mg, Intravenous Push, ONCE, 1 dose, On Thu10/10/22 at 0041 0016 (Given - Provid er: Maricruz Wing, RN) sodium chloride 0.9 % iv bolus (COMPLETED) 500 mL, at 9,999 mL/hr, Intravenous, FLUID BOLUS, 1 dose, On Thu10/10/22 at 0011 2348 (IV New Bag - Provider: Maricruz Wing RN - Comment: barcode not reading) 0034 (IV Stop - Provider: Maricruz Wing, RN) Patient Care team informatio n (unrecognized section and content) Personnel Name: MIGDALIAJOSE ALEJANDRO BYRD FLORENTINOJacob BANKS Address: Address: [facility] Angel[address] Young, [facility] [place] [address]- Personnel Name: ISABELA BYRD Jacob [facility] Address: Address: [facility] [place] [address]- Personnel Name: MIGDALIAJOSE ALEJANDRO BYRD [facility] Address: Address: [facility] [place] [address]- Personnel Name: ISABELA BYRD Jacob [facility] Address: Address: [facility] [place] [address]- Personnel Name: ALEAHDIONE BYRD [facility] Address: Address: [facility] [place] [address]- Personnel Name: MIGDALIAJOSE ALEJANDRO BYRD [facility] Address: Address: [facility] [place] [address]- Personnel Name: MIGDALIAJOSE ALEJANDRO BYRD [facility] Address: Address: [facility] [place] [address]- Personnel Name: OLINDA CASTILLO CNP Address: Address: [facility] [address] Personnel Name: OLINDA CASTILLO CNP Address: Address: [facility] [address] <item><item><item> Privacy Markings (unrecogniz ed section and content) Section Author: Kesha Aj PROHIBITION ON REDISCLOSURE OF CONFIDENTIAL INFORMATION This notice accompanies a disclosure of information concerning a client made to you with the consent of such client. Section Author: Kesha Aj PROHIBITION ON REDISCLOSURE OF CONFIDENTIAL INFORMATION This notice accompanies a disclosure of information concerning a client made to you with the consent of such client. Section Author: Kesha Aj PROHIBITION ON REDISCLOSURE OF CONFIDENTIAL INFORMATION This notice accompanies a disclosure of information concerning a client made to you with the consent of such client. INFORMATION SOURCE (unrecogn ized section and content) DATE CREATED AUTHOR 12/01/2022 [employer] DATE CREATED AUTHOR AUTHOR'S ORGANIZ ATION 02/17/2023 [facility] DATE CREATED AUTHOR AUTHOR'S ORGANIZ ATION 03/05/2023 [facility] DATE CREATED AUTHOR AUTHOR'S ORGANIZ ATION 04/17/2023 [facility] DATE CREATED AUTHOR AUTHOR'S ORGANIZ ATION 10/13/2023 [facility] DATE CREATED AUTHOR AUTHOR'S ORGANIZ ATION 12/31/2023 [facility] DATE CREATED AUTHOR AUTHOR'S ORGANIZ ATION 01/08/2024 [facility] EPIC FOR RECORDS PERTAINING TO PATIENTS WHO ARE OR HAVE BEEN ENROLLED IN A CHEMICAL DEPENDENCY/SUBSTANCEABUSE PROGRAM, SOME INFORMATION MAY BE OMITTED. This clinical summary was aggregated from multiple sources. Caution should be exercised in using it in the provision of clinical care. This summary normalizes information from multiple sources, and as a consequence, information in this document may materially change the coding, format and clinical context of patient data. In addition, data may be omitted in some cases. CLINICAL DECISIONS SHOULD BE BASED ON THE PRIMARY CLINICAL RECORDS. [facility] [employer] [facility]. provides no warranty or guarantee of the accuracy or completeness of information in this document.
--- NOTE | 2024-02-05 18:33 | ECG_ITS ---
[facility] Test Date: 2024-02-05 Pat Name: JADA GRANADOS Department: Room: - Gender: Female Fund Director: : 1980 Requested By: [id number] Order Number: [id number] Reading MD: DEONTE LI Measurements Intervals [place] Rate: 94 P: 63 OK: 162 QRS: 78 QRSD: 72 T: 71 QT: 340 QTc: 392 Interpretive Statements 1100 Sinus rhythm 9110 normal ECG Compared to ECG 01/15/2024 20:59:18 No significant changes Electronically Signed On 02-07-2024 8:07:24 EDT by DEONTE LI
--- NOTE | 2024-02-05 18:53 | ED.CHESTPAI1 ---
HPI - Chest Pain General Chief Complaint: Chest Pain Stated Complaint: CP/TIGHTNESS Time Seen by Provider: 02/05/24 18:53 Source: patient and family Mode of arrival: walk-in Limitations: no limitations History of Present Illness HPI narrative: This patient is here for evaluation of left knee. She says it has been present for 3 days. Initially described as episodic pain that would come and go but then she clarified and says that it hurts all the time. She cannot identify her answer why she waited 3 days before coming in. Especially since she has risk factors of diabetes hypertension and she has had a previous stroke that has left her mildly weak on her right side. She does not use tobacco products. She forgot to take her aspirin and Eliquis this morning because she was in a hurry to get to work. She has not had a cardiac catheterization or stress test. She has never seen a eye physician. She has not been told that she had a heart murmur. She has no history of DVT or phlebitis. They also have identified stage III kidney disease with her. I do not believe she has been to this hospital in the past all this occurred in [place] when she had her stroke. Related Data Home Medications ?Medication ?Instructions ?Recorded ?Confirmed dulaglutide 0.75 mg/0.5 mL 0.75 mg subcut QWEEK 01/15/24 01/15/24 subcutaneous pen injector (Trulicity) finerenone 20 mg tablet (Kerendia) 20 mg PO DAILY 01/15/24 01/15/24 insulin aspart U-100 100 unit/mL 1 sliding scale dose subcut 01/15/24 01/15/24 subcutaneous solution (Novolog USEASDIRECTD U-100 Insulin aspart) insulin glargine 100 unit/mL 30 unit subcut QPM 01/15/24 01/15/24 subcutaneous cartridge Allergies Allergy/AdvReac Type Severity Reaction Status Date / Time codeine AdvReac Intermediate Rash Verified 01/15/24 20:29 Exam Narrative Exam Narrative: Awake alert she is not apprehensive she is very common collected. Skin is warm and dry mucous memories moist pink is not clammy or diaphoretic. HEENT exam is unremarkable. She does not have any carotid bruits on either side. There is no thyromegaly or masses noted. No jugular vein distention. On auscultation of her chest I do not hear clicks rubs gallops or murmur. Examination her lungs shows lungs to be clear with no wheeze rales or rhonchi. She has no respiratory distress although she says she says occasionally she gets short of breath when she is having these episodes. Legs showed no evidence of edema phlebitis or erythema. She has no pain with squeezing the calves. Neurological examination she is normal mental status cranial nerves II to XII are normal she does not have any slurred speech. She states that she does have slight right-sided weakness from her previous stroke. Constitutional Vital Signs, click to edit/add: Last Vital Signs Temp 98.1 F 02/05/24 18:22 Pulse 93 H 02/05/24 18:22 Resp 16 02/05/24 18:22 BP 134/82 02/05/24 18:22 Pulse Ox 96 02/05/24 18:22 O2 Del Method Room Air 02/05/24 18:22 Course Vital Signs Vital signs: Vital Signs Temperature 98.1 F 02/05/24 18:22 Pulse Rate 93 H 02/05/24 18:22 Respiratory Rate 16 02/05/24 18:22 Blood Pressure 134/82 02/05/24 18:22 Pulse Oximetry 96 02/05/24 18:22 Oxygen Delivery Method Room Air 02/05/24 18:22 Temperature 98.1 F 02/05/24 18:22 Pulse Rate 93 H 02/05/24 18:22 Respiratory Rate 16 02/05/24 18:22 Blood Pressure 134/82 02/05/24 18:22 Pulse Oximetry 96 02/05/24 18:22 Oxygen Delivery Method Room Air 02/05/24 18:22 MDM - Chest Pain MDM Narrative Medical decision making narrative: Patient presents after 3 days of chest pain. Risk factors include diabetes hypertension previous stroke obesity. She also is on a statin so that could also be an issue she is really did not know. She did not take her meds this morning. Her initial twelve-lead EKG appears normal. Clinical examination was benign but we will do a full cardiac workup. Discharge Plan Discharge Chief Complaint: Chest Pain Clinical Impression: Chest pain Patient Disposition: Still a Patient Prescriptions / Home Meds: No Action Kerendia 20 mg tablet 20 mg PO DAILY insulin glargine 100 unit/mL cartridge 30 unit subcut QPM insulin aspart U-100 [Novolog U-100 Insulin aspart] 100 unit/mL solution 1 sliding scale dose subcut USEASDIRECTD Trulicity 0.75 mg/0.5 mL pen injector 0.75 mg subcut QWEEK Print Language: Czech Referrals: [facility] [Primary Care Provider] - 1 week
[2024-02-05] MEDS: ASPIRIN 81 MG TAB.CHEW 162 MG PO (19:07)
[2024-02-05 20:07] LABS: Basophils Absolute Auto 0.1 10^3/uL (0.0-0.1); Basophils Percent Auto 0.8 % (0.2-2.0); Eosinophils Absolute Auto 0.1 10^3/uL (0.0-0.7); Hemoglobin 12.6 g/dL (12.0-16.0); Immature Granulocytes Abs Auto 0.02 10^3/uL (0.00-0.03); Immature Granulocytes Pct Auto 0.3 % (0.0-0.5); Lymphocytes Absolute Auto 2.2 10^3/uL (1.2-3.8); Lymphocytes Percent Auto 34.1 % (20.5-60.0); Mean Corpuscular HGB Conc 32.3 g/dL (29.9-35.2); Mean Corpuscular Hemoglobin 29.9 pg (26.7-34.0); Mean Corpuscular Volume 92.4 fL (81.0-99.0); Mean Platelet Volume 10.9 fL (9.5-13.5); Monocytes Absolute Auto 0.5 10^3/uL (0.3-0.8); Monocytes Percent Auto 7.3 % (1.7-12.0); Neutrophils Absolute Auto 3.6 10^3/uL (1.4-6.5); Neutrophils Percent Auto 55.5 % (43.0-75.0); Platelet Count 327 10^3/uL (150-450); Red Blood Count 4.22 10^6/uL (4.20-5.40); Red Cell Distribution Width 13.8 % (11.0-15.0); White Blood Count 6.6 10^3/uL (4.0-11.0)
[2024-02-05 20:25] LABS: Alanine Aminotransferase 21 U/L (14-59); Albumin Globulin Ratio 0.9; Albumin Level 3.4 g/dL (3.4-5.0); Alkaline Phosphatase 70 U/L (46-116); Anion Gap 10.9; Aspartate Amino Transferase 9 U/L (15-37); BUN Creatinine Ratio 13.2; Bilirubin Total 0.3 mg/dL (0.2-1.0); Calcium 8.7 mg/dL (8.5-10.1); Carbon Dioxide 27.6 mmol/L (21.0-32.0); Chloride 101 mmol/L (98-107); D Dimer 0.52 mg/L FEU (<=0.59); Estimated GFR (African America >60 (>=60); Estimated GFR (Non-African Ame 52 (>=60); Glucose 247 mg/dL (74-106); INR 0.94; Partial Thromboplastin Time 27.9 sec (22.3-36.2); Potassium 3.5 mmol/L (3.5-5.1); Sodium 136 mmol/L (136-145); Total Protein 7.4 g/dL (6.4-8.2); Troponin I High Sensitivity <4.0 pg/mL (4.0-51.3)
--- NOTE | 2024-02-05 20:34 | XR_ITS ---
The [address] [address] Patient Name: JADA GRANADOS MRN: [id number] date: 1980 Sex: F Assigned Patient Location: ER Current Patient Location: Accession/Order Number: [id number] Exam Date: 02/05/2024 20:40 Report Date: 02/05/2024 21:28 At the request of: OSCAR KUHN Procedure: XR chest 1V EXAM: XR chest 1V HISTORY: CP COMPARISON: Chest x-ray 01/15/2024 TECHNIQUE: Single AP radiograph of the chest FINDINGS: No pneumothorax, pleural effusion or consolidation. Normal heart size. No acute osseous abnormality. XR/XR chest 1V IMPRESSION: No acute cardiopulmonary process. Electronically authenticated by: JORGE VÁZQUEZ Date: 02/05/2024 21:28
--- NOTE | 2024-02-05 21:03 | ED.CHESTPAI1 ---
HPI - Chest Pain General Chief Complaint: Chest Pain Stated Complaint: CP/TIGHTNESS Time Seen by Provider: 02/05/24 18:53 Source: patient and family Mode of arrival: walk-in Limitations: no limitations History of Present Illness HPI narrative: 43-year-old female presented to the emergency department and was initially seen by Dr. Nathan. Please see his full history and physical exam. Related Data Home Medications ?Medication ?Instructions ?Recorded ?Confirmed dulaglutide 0.75 mg/0.5 mL 0.75 mg subcut QWEEK 01/15/24 02/05/24 subcutaneous pen injector (Trulicity) finerenone 20 mg tablet (Kerendia) 20 mg PO DAILY 01/15/24 02/05/24 insulin aspart U-100 100 unit/mL 1 sliding scale dose subcut 01/15/24 02/05/24 subcutaneous solution (Novolog USEASDIRECTD U-100 Insulin aspart) albuterol sulfate 90 mcg/actuation 2 puff inhalation Q6H PRN 02/05/24 02/05/24 aerosol inhaler shortness of breath or wheezing atorvastatin 20 mg tablet 20 mg PO .QHS 02/05/24 02/05/24 clopidogrel 75 mg tablet 75 mg PO QDAY 02/05/24 02/05/24 dapagliflozin propanediol 10 mg 10 mg PO .QD 02/05/24 02/05/24 tablet (Farxiga) fluticasone 250 mcg-salmeterol 50 1 inh inhalation .QD 02/05/24 02/05/24 mcg/dose blistr powdr for inhalation (Advair Diskus) hydroxyzine HCl 50 mg tablet 50 mg PO Q8H PRN itching 02/05/24 02/05/24 insulin glargine 100 unit/mL (3 30 unit subcut BID 02/05/24 02/05/24 mL) subcutaneous pen (Lantus Solostar U-100 Insulin) losartan 50 mg-hydrochlorothiazide 1 tab PO DAILY 02/05/24 02/05/24 12.5 mg tablet ondansetron 4 mg disintegrating 4 mg PO Q8H PRN nausea and vomiting 02/05/24 02/05/24 tablet pantoprazole 40 mg tablet,delayed 40 mg PO QDAY 02/05/24 02/05/24 release prazosin 1 mg capsule 1 mg PO QDAY 02/05/24 02/05/24 pregabalin 100 mg capsule 100 mg PO Q8H 02/05/24 02/05/24 Allergies Allergy/AdvReac Type Severity Reaction Status Date / Time codeine AdvReac Intermediate Rash Verified 01/15/24 20:29 Exam Constitutional Vital Signs, click to edit/add: Last Vital Signs Temp 98.1 F 02/05/24 18:22 Pulse 92 H 02/05/24 19:50 Resp 16 02/05/24 19:50 BP 138/109 H 02/05/24 19:41 Pulse Ox 98 02/05/24 19:50 O2 Del Method Room Air 02/05/24 18:22 Course Vital Signs Vital signs: Vital Signs Pulse Rate 100 H 02/05/24 18:21 Respiratory Rate 17 02/05/24 18:21 Pulse Oximetry 93 L 02/05/24 18:21 Temperature 98.1 F 02/05/24 18:22 Pulse Rate 92 H 02/05/24 19:50 Respiratory Rate 16 02/05/24 19:50 Blood Pressure 138/109 H 02/05/24 19:41 Pulse Oximetry 98 02/05/24 19:50 Oxygen Delivery Method Room Air 02/05/24 18:22 MDM - Chest Pain MDM Narrative Medical decision making narrative: Her workup was all negative. She has had the symptoms for 3 days and she thinks it might be due to stress. Cardiac workup is negative and have no clinical suspicion of pulmonary embolism. She is discharged home. Treatment diagnosis and follow-up were discussed with the patient. Differential Diagnosis Differential diagnosis: Likely pneumothorax, unstable angina pectoris, atypical chest pain, st elevation myocardial infarction, costochondritis and chest pain Lab Data Attestation: I reviewed the patient's lab results. Labs: Lab Results 02/05/24 Range/Units 19:41 WBC 6.6 (4.0-11.0) 10^3/uL RBC 4.22 (4.20-5.40) 10^6/uL Hgb 12.6 (12.0-16.0) g/dL Hct 39.0 (36.0-48.0) % MCV 92.4 (81.0-99.0) fL MCH 29.9 (26.7-34.0) pg MCHC 32.3 (29.9-35.2) g/dL RDW 13.8 (11.0-15.0) % Plt Count 327 (150-450) 10^3/uL MPV 10.9 (9.5-13.5) fL Neut % (Auto) 55.5 (43.0-75.0) % Lymph % (Auto) 34.1 (20.5-60.0) % Stanton % (Auto) 7.3 (1.7-12.0) % Eos % (Auto) 2.0 (0.9-7.0) % Baso % (Auto) 0.8 (0.2-2.0) % Neut # (Auto) 3.6 (1.4-6.5) 10^3/uL Lymph # (Auto) 2.2 (1.2-3.8) 10^3/uL Stanton # (Auto) 0.5 (0.3-0.8) 10^3/uL Eos # (Auto) 0.1 (0.0-0.7) 10^3/uL Baso # (Auto) 0.1 (0.0-0.1) 10^3/uL Abs Immat Gran (auto) 0.02 (0.00-0.03) 10^3/uL Imm/Tot Granulo (auto) 0.3 (0.0-0.5) % PT 10.0 (9.0-11.6) sec INR 0.94 APTT 27.9 (22.3-36.2) sec D-Dimer 0.52 (<=0.59) mg/L FEU Sodium 136 (136-145) mmol/L Potassium 3.5 (3.5-5.1) mmol/L Chloride 101 (98-107) mmol/L Carbon Dioxide 27.6 (21.0-32.0) mmol/L Anion Gap 10.9 BUN 15.0 (7.0-18.0) mg/dL Creatinine 1.14 H (0.55-1.02) mg/dL Est GFR ( Amer) >60 (>=60) Est GFR (Non-Af Amer) 52 L (>=60) BUN/Creatinine Ratio 13.2 Glucose 247 H (74-106) mg/dL Calcium 8.7 (8.5-10.1) mg/dL Total Bilirubin 0.3 (0.2-1.0) mg/dL AST 9 L (15-37) U/L ALT 21 (14-59) U/L Alkaline Phosphatase 70 (46-116) U/L Troponin I High Sens <4.0 L (4.0-51.3) pg/mL Total Protein 7.4 (6.4-8.2) g/dL Albumin 3.4 (3.4-5.0) g/dL Globulin 4.0 g/dL Albumin/Globulin Ratio 0.9 Lipase 44.0 (16.0-77.0) U/L Imaging Data Chest x-ray: My impression: No acute findings ECG Data Attestation: I personally reviewed and interpreted this ECG as follows: (EKG on my interpretation shows normal sinus rhythm without acute change and a rate of 94.) Heart Score History: Slightly/Non-Suspicious ECG: Normal Age: <45 years Risk Factors: 1 or 2 Risk Factors Troponin: <Normal Limit Total Heart Score Recommendations & Risks:: 1 Discharge Plan Discharge Stand Alone Forms: Portal Instructions Chief Complaint: Chest Pain Clinical Impression: Chest pain Patient Disposition: Home, Self-Care Time of Disposition Decision: 21:02 Condition: Good Mode of Transportation: Private Vehicle Prescriptions / Home Meds: No Action Kerendia 20 mg tablet 20 mg PO DAILY insulin aspart U-100 [Novolog U-100 Insulin aspart] 100 unit/mL solution 1 sliding scale dose subcut USEASDIRECTD Trulicity 0.75 mg/0.5 mL pen injector 0.75 mg subcut QWEEK clopidogrel 75 mg tablet 75 mg PO QDAY albuterol sulfate 90 mcg/actuation HFA aerosol inhaler 2 puff INHALATION Q6H PRN (Reason: shortness of breath or wheezing) atorvastatin 20 mg tablet 20 mg PO .QHS dapagliflozin propanediol [Farxiga] 10 mg tablet 10 mg PO .QD fluticasone propion-salmeterol [Advair Diskus] 250-50 mcg/dose blister with device 1 inh INHALATION .QD hydroxyzine HCl 50 mg tablet 50 mg PO Q8H PRN (Reason: itching) insulin glargine [Lantus Solostar U-100 Insulin] 100 unit/mL (3 mL) insulin pen 30 unit SUBCUT BID losartan-hydrochlorothiazide 50-12.5 mg tablet 1 tab PO DAILY ondansetron 4 mg tablet,disintegrating 4 mg PO Q8H PRN (Reason: nausea and vomiting) pantoprazole 40 mg tablet,delayed release (DR/EC) 40 mg PO QDAY prazosin 1 mg capsule 1 mg PO QDAY pregabalin 100 mg capsule 100 mg PO Q8H Print Language: Bangladeshi Instructions: Chest Pain (ED) Referrals: [facility] [Primary Care Provider] - 1 week
== END 2024-02-05 21:17 | disposition home or self-care (01) ==
PROVIDERS: Personal Emergency Response Attendant; Emergency Provider Emergency Medicine
DX: R07.9 Chest pain, unspecified (principal); E11.22 Type 2 diabetes mellitus with diabetic chronic kidney disease; N18.30 Chronic kidney disease, stage 3 unspecified; I12.9 Hypertensive chronic kidney disease with stage 1 through stage 4 chronic kidney disease, or unspecified chronic kidney disease; E66.9 Obesity, unspecified; Z68.33 Body mass index [BMI] 33.0-33.9, adult; Z86.73 Personal history of transient ischemic attack (TIA), and cerebral infarction without residual deficits; Z79.82 Long term (current) use of aspirin; Z79.01 Long term (current) use of anticoagulants
CPT/HCPCS: 36415; 71045; 80053; 83690; 84484; 85025; 85378; 85610; 85730; 93005; 99285

== ENCOUNTER 2024-03-03 18:33 | Emergency (ER) | payer OTHER, SELFPAY ==
--- OUTSIDE RECORDS SUMMARY | 2024-03-03 18:44 | XMS_ITS | CCD ---
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 Role Phone Unavailable Primary Care Provider BHANU Reynolds Primary Care Physician BHANU, ZHAO ALFRED Unavailable Unavailab Christal Martins Unavailable Sivakumar Galeano Unavailable Ami Mcarthur Unavailable Unavailable Christina Ramos Unavailable Unavailable ANDREI RADER Attending Unavailable PROVIDER, UNKNOWN Admitting Unavailable PROVIDER, UNKNOWN Attending Unavailable PROVIDER, UNKNOWN Admitting Unavailable Srinivas Fragoso Unavailable Unavailable Vero Matos Unavailable Olinda Castillo Unavailable Unavailable Kee Swan Unavailable Unavailable DO JESUS ALBERTO ECHEVARRIA Attending Unava ilable Bhanu, Ms. Zhao [facility] Unava ilable Reji Rivera Admitting Unavailable Reji Rivera Referring Unavailable [facility], Dr. Steve Ferrer Admitting Un available [facility], Dr. Steve Ferrer Referring Un available Kip, Ms. Zhao [facility] [place] [facility] Unava ilChristal Suero Attending Unavailable Kip, Ms. Zhao [facility] [place] [facility] Unava ilable Daylin, Dr. Araujo Admitting Unava ilable Daylin, Dr. Araujo Referring Unava ilable Edvin, Dr. Rachel Goff Attending UnavailDr. Kee Beck Attending Unavaila rian Castillo, Olinda [facility] Un available Buddyp, Ms. Zhao [facility] Unava ilable Dr. Srinivas Fragoso Attending UnavailOlinda Mckeon Unavailable Soviak, Kip W Unavailable Unavailable Unavailable Bhanu, Zhao [facility] Unavailab CHRISTINA Singh Attending Unavailable Anna, Ms. Prakash Oliva Primary Care Un available Froylan, Shy Attending Unavailable Young, Shy Referring Unavailable Sodione, . Bhanu Banks Primary Care Unavaila ble Froylan, Sivakumar Referring Unavailable Shy Galeano Attending Unavailable MELINDA, MD PHAM Attending Unavailable Sodione, Mr. Bhanu Banks Primary Care Unavaila ble jacob, Pavel De Oliveira Primary Care Unavailab le BRISEYDA MCNALLY, CHRISTINA Attending Unavailable BRISEYDA MCNALLY, CHRISTINA Referring Unavailable OLINDA CASTILLO Primary Care Physician [phone] ARIES JONES Attending Unavailable OLINDA CASTILOL Primary Care Unavailable OLINDA CASTILLO Attending Unavailable OLINDA CASTILLO Admitting Unavailable ANNA, OLINDA Admitting Unavailable OLINDA CASTILLO Primary Care Unavailable OLINDA CASTILLO Attending Unavailable Srinivas Easley Attending Unavailable Hailey Holman Attending Unavailable ISABELA, INTERNET MANAGER [facility] Referring Unavaila ble OLINDA CASTILLO Attending Unavailable ANNA, OLINDA Primary Care Unavailable OLINDA CASTILLO Admitting Unavailable Allergies Allergy Classification Reported Allergen(s) Allergy Type Date of Onset Reaction(s) Facility (19 sources) Codeine; Translations: [codeine] Drug Allergy 10-02-2022 Hives, Eruption of skin (disorder) [facility] Medications Current Medications Medication Drug Class(es) Dates [...] serious breathing problems. Comment on above: Caution federal law prohibits the transfer of [...] breathing problems. atorvastatin 20 mg oral tablet (15 sources) HMG-CoA Reductase Inhibitor Start: 10-17-2022 take 1 tablet by mouth once daily atorvastatin 20 mg Tab 20 mg = 1 tab(s), Oral, Daily, # 30 tab(s), Refills(s) 0 Start Date: 11/07/22 Status: Ordered 24 hr buPROPion hydrochloride 300 mg extended release oral tablet (15 sources) Aminoketone Start: 10-17-2022 take 1 tablet by mouth once daily buPROPion 300 mg/24 hours ER Tab 300 mg = 1 tab(s), Oral, Daily, # 30 tab(s), Refills(s) 0 Start Date: 11/07/22 Status: Ordered Start: 10-17-2022 take 1 tablet by miguel angel th every twenty-four hours Wellbutrin XL 300 mg/24 hours oral tablet, extended release ; 1 tab(s) orally every 24 hours Quantity: 30 Refills: 0 Ordered: 17-Oct-2022 Steve Wall Start: 17-Oct-2022 Generic Substitution Allowed cephalexin 500 [...] day Quantity: 6 Refills: 0 Ordered: 16-Nov-2022 Miguelito Rabagoludmila Tinsley Start: 16-Nov-2022 End: 18-Nov-2022 Generic Substitution Allowed [...] Medication=DOXYCY KEITH HYCLATE 100 MG TAB, OriginatingSource =[facility] OriginatingProvid er=BHANU MAR, Duration=7, Date Last Modified/Filled=05-Jan-2023 Comment on above: Source=[facility], Medication=DOXYCYCLINE HYCLATE 100 MG TAB, OriginatingSource=[facility] OriginatingProvider=SOBHANU PARHAM, Duration=7, Date Last Modified/Filled=15-Jan-2023 DULoxetine 60 mg delayed release oral capsule (1 source) Serotonin and Norepinephrine Reuptake Inhibitor duloxetine (Cymbalta) 60 MG capsule 1 capsule 0 Active FLUoxetine 20 mg oral capsule (15 sources) Serotonin Reuptake Inhibitor Start: 10-17-2022 take [...] salmeterol xinafoate 0.014 mg/actuat dry powder inhaler (10 sources) Corticosteroid, beta2-Adrenergic Agonist Start: 11-07-2022 take 1 puff(s) by inhalation twice daily fluticasone-salmeterol 232 mcg-14 mcg/inh inhalation powder 1 puff(s), Inhalation, BID, Refill(s) 0 Start Date: 11/07/22 Status: Ordered fosfomycin 3000 mg powder for oral solution (9 sources) Start: 11-10-2022 fosfomycin 3 g oral granule for reconstitution 3 gm = 1 EA, Oral, q48hr, # 3 EA, Refills(s) 0, Pharmacy: [facility]/pharmacy #[id number], 162.6, cm, 11/07/22 9:23:00 EST, Height/Length Dosing, 98, kg, 11/07/22 9:23:00 EST, Weight Dosing Start Date: 11/10/22 Status: Ordered Start: 11-10-2022 fosfomycin 3 g oral granule for reconstitution 3 gm = 1 EA, Oral, q48hr, # 3 EA, Refills(s) 0, Pharmacy: [facility]/pharmacy #[id number], 162.6, cm, 11/07/22 9:23:00 EST, Height/Length Dosing, 98, kg, 11/07/22 9:23:00 EST, Weight Dosing Start Date: 11/10/22 Status: Ordered hydroCHLOROthiazide 12.5 mg / losartan potassium 50 mg oral tablet (1 source) Thiazide Diuretic, Angiotensin 2 Receptor Kristen take 1 tablet by mouth once daily losartan-hydrochlorothiazide 50 mg-12.5 mg oral tablet ; 1 tab(s) orally once a day Quantity: 0 Refills: 0 Ordered: 10-Feb-2023 Maricruz Sam Generic Substitution Allowed hydrOXYzine hydrochloride 50 mg oral tablet (14 sources) Antihistamine Star t: 0311-24 take 1 tablet by mouth four times daily as needed for anxiety hydrOXYzine hydrochloride 50 mg oral tablet 50 mg = 1 tab(s), Oral, QID, PRN as needed for anxiety, Refills(s) 0 Start Date: 11/07/22 Status: Ordered take 1 tablet by miguel angel th three times daily as needed hydrOXYzine HCl - 50 MG Oral Tablet TAKE 1 TABLET 3 times daily PRN Quantity: 0 Refills: 0 Ordered: 04-Mar-2023 DO Active insulin aspart, human 100 unt/ml injectable solution (13 sources) Insulin Analog Start: 11-07-2022 NovoLOG 100 [...] above: Source=Surescripts, Medication=INS ASPART FLEXP 100UML 15, OriginatingSource=[facility], OriginatingProvider=BHANU MAR, Duration=50, Refills=10, Date Last Modified/Filled=09-Jan-2023 insulin glargine 100 unt/ml injectable solution (15 sources) Insulin Analog Start: 11-07-2022 Lantus 100 [...] Active losartan potassium 25 mg oral tablet (13 sources) Angiotensin 2 Receptor Kristen Start: 11-08-19 [...] day(s), # 28 tab(s), Refills(s) 0, Pharmacy: [facility]/pharmacy #[id number], 162, cm, 09/28/23 14:32:00 EST, Height/Length [...] pantoprazole 40 mg delayed release oral tablet (14 sources) Proton Pump Inhibitor Start: 3 take 1 tablet by mouth once daily Pantoprazole [address] Tab 40 mg = 1 tab(s), Oral, Daily, Refills(s) 0 Start Date: 11/07/22 Status: Ordered prazosin 1 mg oral capsule (14 sources) alpha-Adrenergic Kristen Start: 3 take 3 capsules by mouth at bedtime prazosin 1 mg Cap 3 mg = 3 cap(s), Oral, Bedtime, Refills(s) 0 Start Date: 11/07/22 Status: Ordered take 1 capsule by mouth once daniel ly Prazosin HCl - 1 MG Oral Capsule TAKE 1 CAPSULE Daily Quantity: 0 Refills: 0 Ordered: 04-Mar-2023 DO Active pregabalin 100 mg oral capsule (15 sources) Start: 11-07-2022 take 1 capsule by mouth three times daily pregabalin 100 mg Cap 100 mg = 1 cap(s), Oral, TID, Refills(s) 0 Start Date: 11/07/22 Status: Ordered Start: 10-17-2022 Lyrica 100 mg oral capsule ; 1 cap(s) orally 3 times a day- Patient filled 30 day suppply 06/2022 Quantity: 90 Refills: 0 Ordered: 17-Oct-2022 Steve Wall Start: 17-Oct-2022 Generic Substitution Allowed tamsulosin hydrochloride [...] Last Modified/Filled=13-Jan-2023 Zofran ODT 4 mg Tab-Dis (10 sources) Start: 11-07-2022 take 1 tablet by [...] Modified/Filled=13-Jan-2023 metFORMIN hydrochloride 500 mg oral tablet (16 sources) Biguanide Start: 12-09-19 metFORMIN HCl - 500 MG Oral Tablet Quantity: 0 Refills: 0 Ordered: 08-Dec-2022 DO Start : 08-Dec-2022 Active Start: 10-17-2022 take 1 tablet by miguel angel th twice daily metformin 500 mg Tab 500 [...] Comments: Source=[place], Medication=ONDANSETRON ODT 4 MG TABLET, OriginatingSource=[facility] OriginatingProvider=BHANU MAR, Duration=30, Refills=3, Date Last Modified/Filled=06-Jan-2023 Comment on above: Source=[place], Medication=ONDANSETRON ODT 4 MG TABLET, OriginatingSource=[facility] OriginatingProvider=BHANU MAR, Duration=30, Refills=3, Date Last Modified/Filled=06-Jan-2023 [...] Maricruz Sam Generic Substitution Allowed Comments: Source=Surescripts, Medication=OXYBUTYNIN ER 5MG TAB, OriginatingSource=[facility], OriginatingProvider=Bhanu Mar, Duration=30, Refills=1, Date Last Modified/Filled=28-Jan-2023 Comment on above: Source=Surescripts, Medication=OXYBUTYNIN ER 5MG TAB, OriginatingSource=[facility], OriginatingProvider=Bhanu Mar, Duration=30, Refills=1, Date Last Modified/Filled=28-Jan-2023 phenazopyridine hydrochloride 100 mg oral tablet (1 source) Star t: 09-26 End: 03-26 take 1 tablet by mouth three times [...] Ordered: 04-Mar-2023 DO Active Comment on above: Source=Surescripts, Medication=QUETIAPINE 25MG TABLET, OriginatingSource=[facility], OriginatingProvider=Bhanu Mar, Duration=30, Refills=10, [...] 15-Jan-2023 End: 25-Jan-2023 Generic Substitution Allowed Comments: Source=Surescripts, Medication=TRAMADOL HCL 50 MG TABLET, Duration=10, Date Last Modified/Filled=Jan-2023 take 1 tablet by miguel angel th every six hours as needed for pain traMADol HCl - 50 MG Oral Tablet TAKE 1 TABLET EVERY 6 HOURS NEEDED FOR PAIN. Quantity: 120 Refills: 0 Ordered: 04-Mar-2023 DO Active Comment on above: Source=Surescripts, Medication=TRAMADOL HCL 50 MG TABLET, Duration=10, Date Last Modified/Filled=16-Jan-2023 Problems Active Problems Problem Classification Problem Date [...] Onset: 12-06-2022 Chronic Other aftercare (1 source) continuous churn buttermaker (current) use of insulin; Translations: [retirement (current) use of insulin] Onset: 02-10-2023 Episodic Other aftercare (1 source) continuous churn buttermaker (current) use of oral hypoglycemic drugs; Translations: [continuous churn buttermaker (current) use of oral hypoglycemic drugs] Onset: 02-10-2023 Episodic Other aftercare (1 source) Other assistant terminal manager (current) drug therapy; Translations: [Other fdc (current) drug therapy] Onset: 02-10-2023 Episodic Other aftercare (1 source) retirement (current) use of antibiotics; Translations: [continuous churn buttermaker (current) use of antibiotics] Onset: 01-19-2023 Episodic Other aftercare (1 source) Long-term current use of insulin; Translations: [retirement (current) use of insulin] Episodic Other aftercare (1 source) Long-term current use of oral hypoglycemic medication; Translations: [retirement (current) use of oral hypoglycemic drugs] Episodic [...] 11-14-2022 Comment on above: FOLLOW UP FROM [facility] Unclassified (9 sources) Extended spectrum beta-lactamase producing bacteria carrier [...] history of nicotine dependence] Onset: 11-16-2022 Episodic Results Test Name Value Interpretation Reference Range Facility CHEMISTRYOrdered By: SYSTEM SYSTEM on 02-29-2024 Albumin [Mass/Vol] 4.0 g/dL Normal 3.3 - 5.0 gm/dL [facility] Albumin/Globulin [Mass ratio] 1.3 {ratio} Normal 1.1 - 2.2 [facility] ALP [Catalytic activity/Vol] 60 [iU]/d Normal 21 - 98 Int._Unit/L [facility] ALT No additional P-5'-P [Catalytic activity/Vol] 11 [iU]/d Normal 6 - 46 Int._Unit/L [facility] Anion gap [Moles/Vol] 11 mmol/L Normal 6 - 16 mEq/L [facility] AST [Catalytic activity/Vol] 7 [iU]/d Normal 5 - 43 Int._Unit/L [facility] Bilirubin [Mass/Vol] 0.5 mg/dL Normal 0.0 - 1 .1 mg/dL [facility] Calcium [Mass/Vol] 9.5 mg/dL Normal 8.9 - 11. 1 mg/dL [facility] Chloride [Moles/Vol] 106 mmol/L Normal 101 - 1 11 mmol/L [facility] Cholesterol [Mass/Vol] 143 mg/dL Normal 120 - 200 mg/dL [facility] Cholesterol in HDL [Mass/Vol] 37 mg/dL Invalid Interpretation Code [facility] Comment on above: Result Comment: '>= 60 LOW RISK' '<= 40 HIGH RISK' Cholesterol in LDL [Mass/Vol] 92 mg/dL Normal <=129mg/dL [facility] Cholesterol in VLDL [Mass/Vol] 19 mg/dL Normal 7 - 40 mg/dL [facility] CO2 [Moles/Vol] 25 mmol/L Normal 21 - 31 mmol/L [facility] Cobalamin (Vitamin B12) [Mass/Vol] 357 pg/mL Normal 50 - 1500 pg/mL [facility] Creatinine [Mass/Vol] 0.8 mg/dL Normal 0.5 - 1.3 mg/dL [facility] eGFR 92 mL/min/1.73 m2 Normal >=59mL/min / 1.73 m2 [facility] Globulin (S) [Mass/Vol] 3.0 g/dL Normal 1.4 - 4.0 gm/dL [facility] Glucose [Mass/Vol] 205 mg/dL High 55 - 199 mg/dL [facility] Magnesium [Mass/Vol] 1.8 mg/dL Normal 1.3 - 2 .4 mg/dL [facility] Potassium [Moles/Vol] 4.3 mmol/L Normal 3.5 - 5.3 mmol/L [facility] Protein [Mass/Vol] 7.0 g/dL Normal 6.0 - 7.8 gm/dL [facility] Sodium [Moles/Vol] 138 mmol/L Normal 135 - 145 mmol/L [facility] Triglyceride [Mass/Vol] 94 mg/dL Normal <=149mg/dL [facility] TSH Qn 2.25 m[IU]/L Normal 0.34 - 5.60 mcIU/mL [facility] Urea nitrogen [Mass/Vol] 18 mg/dL Normal 5 - 21 mg/dL [facility] Urea nitrogen/Creatinine [Mass ratio] 22 mg/mg High 10 - 20 [facility] CHEMISTRYOrdered By: Ann-Marie Hart on 02-29-2024 T4 [Mass/Vol] 9.5 ug/dL High 4.6 - 9.1 mcg/dL [facility] CMPon 02-29-2024 Albumin [Mass/Vol] 4.0 g/dL Normal 3.3-5.0 [facility] Comment on above: Performed By: #### 2 [id number] #### [facility] [address] [place] [address] Albumin/Globulin (S) [Mass conc ratio] 1.3 Normal 1.1-2.2 [facility] Comment on above: Performed By: #### 2 [id number] #### [facility] [address] [place] [address] ALP [Catalytic activity/Vol] 60 Int._Unit/L Normal 21-98 [facility] Comment on above: Performed By: #### 2 [id number] #### [facility] [address] [place] [address] ALT No additional P-5'-P [Catalytic activity/Vol] 11 Int._Unit/L Normal 6-46 [facility] Comment on above: Performed By: #### 2 [id number] #### [facility] [address] [place] [address] Anion gap [Moles/Vol] 11 mmol/L Normal 6-16 [facility] Comment on above: Performed By: #### 2 [id number] #### [facility] [address] [place] [address] AST [Catalytic activity/Vol] 7 Int._Unit/L Normal 5-43 [facility] Comment on above: Performed By: #### 2 [id number] #### [facility] [address] [place] [address] Bilirubin [Mass/Vol] 0.5 mg/dL Normal 0.0-1.1 [facility] Comment on above: Performed By: #### 2 [id number] #### [facility] [address] [place] [address] Calcium [Mass/Vol] 9.5 mg/dL Normal 8.9-11.1 [facility] Comment on above: Performed By: #### 2 [id number] #### [facility] [address] [place] [address] Chloride [Moles/Vol] 106 mmol/L Normal 101-111 [facility] Comment on above: Performed By: #### 2 [id number] #### [facility] [address] [place] [address] CO2 [Moles/Vol] 25 mmol/L Normal 21-31 [facility] Comment on above: Performed By: #### 2 389162 #### [facility] [address] [place] [address] Creatinine [Mass/Vol] 0.8 mg/dL Normal 0.5-1.3 [facility] Comment on above: Performed By: #### 2 051751 #### [facility] [address] [place] [address] Globulin (S) [Mass/Vol] 3.0 g/dL Normal 1.4-4.0 [facility] Comment on above: Performed By: #### 2 990175 #### [facility] [address] [place] [address] Glucose [Mass/Vol] 205 mg/dL High 55-199 [facility] Comment on above: Performed By: #### 2 297459 #### [facility] [address] [place] [address] Potassium [Moles/Vol] 4.3 mmol/L Normal 3.5-5.3 [facility] Comment on above: Performed By: #### 2 099856 #### [facility] [address] [place] [address] Protein [Mass/Vol] 7.0 g/dL Normal 6.0-7.8 [facility] Comment on above: Performed By: #### 2 833852 #### [facility] [address] [place] [address] Sodium [Moles/Vol] 138 mmol/L Normal 135-145 [facility] Comment on above: Performed By: #### 2 [id number] #### [facility] [address] [place] [address] Urea nitrogen [Mass/Vol] 18 mg/dL Normal 5-21 [facility] Comment on above: Performed By: #### 2 529041 #### [facility] [address] [place] [address] Urea nitrogen/Creatinine [Mass ratio] 22 No Units High 10-20 [facility] Comment on above: Performed By: #### 2 [id number] #### [facility] [address] [place] [address] Consent for Treatmenton 02-06 Consent for Treatment [id number] Normal [facility] Lipid Panelon 02-29-2024 Cholesterol [Mass/Vol] 143 mg/dL Normal 120-200 [facility] Comment on above: Performed By: #### 2 216103 #### [facility] [address] [place] [address] Cholesterol in HDL [Mass/Vol] 37 mg/dL Invalid Interpretation Code [facility] Comment on above: Result Comment: '>= 60 LOW RISK' '<= 40 HIGH RISK' Performed By: #### 2 267167 #### [facility] [address] [place] [address] Cholesterol in LDL [Mass/Vol] 92 mg/dL Normal <=129 [facility] Comment on above: Performed By: #### 2 089693 #### [facility] [address] [place] [address] Cholesterol in VLDL [Mass/Vol] 19 mg/dL Normal 7-40 [facility] Comment on above: Performed By: #### 2 689803 #### [facility] [address] [place] [address] Triglyceride [Mass/Vol] 94 mg/dL Normal <=149 [facility] Comment on above: Performed By: #### 2 997680 #### [facility] [address] [place] [address] Magnesiumon 02-29-2024 Magnesium [Mass/Vol] 1.8 mg/dL Normal 1.3-2.4 [facility] Comment on above: Performed By: #### 2 920056 #### [facility] [address] [place] [address] Physician Orderon 02-29-2024 Physician Order [id number]#[id number] Normal [facility] T4 & TSHon 02-29-2024 TSH Qn 2.25 m[IU]/L Normal 0.34-5.60 [facility] Comment on above: Performed By: #### 1 [id number] #### [facility] [address] [place] [address] T4 [Mass/Vol] 9.5 microgram/dL High 4.6-9.1 [facility] Comment on above: Performed By: #### 1 [id number] #### [facility] [address] [place] [address] Vit B12on 02-29-2024 Cobalamin (Vitamin B12) [Mass/Vol] 357 pg/mL Normal 50-1500 [facility] Comment on above: Performed By: #### 2 494880 #### [facility] [address] [place] [address] eGFRon 02-29-2024 eGFR 92 mL/min/1.73 m2 Normal >=59 [facility] Comment on above: Order Comment: Order added by Discern Expert. Performed By: #### 1 [id number] #### [facility] [address] [place] [address] CNCOon 12-29-2023 CNCO Letter Text Normal [facility] Insurance Correspondenceon 0 10-12-2023 Insurance Correspondence [id number] Normal [facility] Physician Orderon 10-12-2023 Physician Order [id number]#1.00TIFF Normal [facility] BNPon 10-07-2023 Int Ctr BNP Pass Normal [facility] Comment on above: Performed By: #### 2 786669, [id number], [id number] ####[facility] [address] [place] [address] Natriuretic peptide B (Bld) [Mass/Vol] 129 pg/mL High 5-80 [facility] Comment on above: Performed By: #### 2 636896, [id number], [id number] ####[facility] [address] [place] [address] CHEMISTRYOrdered By: SYSTEM SYSTEM on 10-07-2023 Albumin [...] 129 pg/mL High 5 - 80 pg/[facility] Albumin [Mass/Vol] 3.6 g/dL Normal 3.3-5.0 [facility] Comment on above: Performed By: #### 2 438611, [id number], [id number] ####[facility] [address] [place] [address] Albumin/Globulin [Mass ratio] 1.1 {ratio} Normal 1.1-2.2 [facility] Comment on above: Performed By: #### 2 745274, [id number], [id number] ####[facility] [address] [place] [address] Alk Phos 100 Int._Unit/L High 21-98 [facility] Comment on above: Performed By: #### 2 145421, [id number], [id number] ####[facility] [address] [facility] [place] [address] ALT 56 Int._Unit/L High 6-46 [facility] Comment on above: Performed By: #### 2 599041, [id number], [id number] ####[facility] [address] [place] [address] Anion gap [Moles/Vol] 12 mmol/L Normal 6-16 [facility] Comment on above: Performed By: #### 2 955727, [id number], [id number] ####[facility] [address] [facility] [place] [address] AST 34 Int._Unit/L Normal 5-43 [facility] Comment on above: Performed By: #### 2 113856, [id number], [id number] ####[facility] [address] [facility] [place] [address] Bili Total 0.4 mg/dL Normal 0.0-1.1 [facility] Comment on above: Performed By: #### 2 974650, 09369705, 35902289 ####[facility] [address] [place] [address] BUN/Creat Ratio 17 No Units Normal 10-20 [facility] Comment on above: Performed By: #### 2 037864, [id number], 13254650 ####[facility] [address] [place] [address] Calcium [Mass/Vol] 9.3 mg/dL Normal 8.9-11.1 [facility] Comment on above: Performed By: #### 2 856299, 01890472, [id number] ####[facility] [address] [place] [address] Chloride [Moles/Vol] 101 mmol/L Normal 101-111 [facility] Comment on above: Performed By: #### 2 765686, [id number], [id number] ####[address] [place] [address] CO2 [Moles/Vol] 29 mmol/L Normal 21-31 [facility] Comment on above: Performed By: #### 2 510548, [id number], [id number] ####[address] [address] Creatinine [Mass/Vol] 1.1 mg/dL Normal 0.5-1.3 [facility] Comment on above: Performed By: #### 2 443122, [id number], [id number] ####[facility] [address] [place] [address] Globulin (S) [Mass/Vol] 3.2 g/dL Normal 1.4-4.0 [facility] Comment on above: Performed By: #### 2 247973, 79553297, [id number] ####[facility] [address] [place] [address] Glucose [Mass/Vol] 312 mg/dL High 55-199 [facility] Comment on above: Performed By: #### 2 059957, [id number], 33482839 ####[facility] [address] [place] [address] Potassium [Moles/Vol] 4.2 mmol/L Normal 3.5-5.3 [facility] Comment on above: Performed By: #### 2 070887, 15988084, 09056179 ####[facility] [address] [place] [address] Protein [Mass/Vol] 6.8 g/dL Normal 6.0-7.8 [facility] Comment on above: Performed By: #### 2 443797, 21236244, 77064969 ####[facility] [address] [place] [address] Sodium [Moles/Vol] 138 mmol/L Normal 135-145 [facility] Comment on above: Performed By: #### 2 046918, 03941723, 95949649 ####[address] [place] [address] Urea nitrogen [Mass/Vol] 19 mg/dL Normal 5-21 [facility] Comment on above: Performed By: #### 2 263181, [id number], [id number] ####[address] [place] [address] Consent for Treatmenton 09-09 Consent for Treatment [id number]#[id number] Normal [facility] Physician Orderon 10-07-2023 Physician Order [id number]#1.00TIFF Normal [facility] eGFRon 10-07-2023 eGFR 63 mL/min/1.73 m2 Normal >=59 [facility] Comment on above: Order Comment: Order added by Discern Expert. Performed By: #### 2 465971, [id number], [id number] ####[address] [place] [address] ED Note-Physicianon 09-29-19 24 ED Note-Physician Basic [...] and Complexity of Problems Differential Diagnosis: [] [facility] Data External documents reviewed: [] My EKG [...] day(s), # 28 tab(s), Refills(s) 0, Pharmacy: [facility]/pharmacy #[id number], 162, cm, 09/28/23 14:32:00 EST, Height/Length [...] UA With Cult Reflex Medications Administered Given [id number] [F], 10 unit(s), SubCutaneous metoclopramide 5 mg/mL Inj, 10 mg, IV Push NS 1000 ml Bolus, 1000 mL, IV NS 1000 ml Bolus, 1000 mL, IV Disposition Plan Patient Discharge Condition Stable Discharge Disposition To home Discharge Prescription List Prescriptions (more content not included)... Normal [facility] Comment on above: Result Comment: Elec tronically Signed By: Marcos Bartlett PA-C\.br\Date and Time Signed: 09/28/23 21:52 EST\.br\Electronically Co-Signed By: Srinivas Easley DO\.br\Date and Time Co-Signed: 09/29/23 07:09 EST B hCG Qualon 09-28-2023 Beta HCG ( test) Ql Negative Normal [facility] Comment on above: Performed By: #### 2 [id number], 9815143, 60431299, 0596364, 00413545, 86479727, 3857046, 1892022 ####[facility] [address] [place] [address] BMPon 09-28-2023 Anion gap [Moles/Vol] 14 mmol/L Normal 6-16 [facility] Comment on above: Performed By: #### 2 39733184, 6457938, 03833305, 9666883, 93914965, 74028947, 6864340, 0943502 ####[facility] [address] [place] [address] BUN/Creat Ratio 20 No Units Normal 10-20 [facility] Comment on above: Performed By: #### 2 22770628, 0554129, 67288265, 7810177, 38806049, 92866683, 2764933, 7687535 ####[facility] [address] [place] [address] Calcium [Mass/Vol] 9.4 mg/dL Normal 8.9-11.1 [facility] Comment on above: Performed By: #### 2 26636363, 9362164, 78478044, 6728045, 45300533, 46267318, 7980937, 1740197 ####[facility] [address] [place] [address] Chloride [Moles/Vol] 96 mmol/L Low 101-111 [facility] Comment on above: Performed By: #### 2 01525518, 0633447, 27328528, 8727015, 17390616, 45978482, 6239780, 1791620 ####[place] [address] [place] [address] CO2 [Moles/Vol] 25 mmol/L Normal 21-31 [facility] Comment on above: Performed By: #### 2 17570692, 3953646, 20982208, 0866539, 19147032, 99659062, 0681040, 2890321 ####[place] [address] [place] [address] Creatinine [Mass/Vol] 1.0 mg/dL Normal 0.5-1.3 [facility] Comment on above: Performed By: #### 2 50925377, 7576174, 96906769, 4077566, 88276847, 07819711, 2093082, 4374911 ####[facility] [address] [place] [address] Glucose [Mass/Vol] 420 mg/dL High 55-199 [facility] Comment on above: Performed By: #### 2 94055890, 2240830, 17153148, 9804868, 54060943, 84726765, 2484561, 6382655 ####[place] [address] [place] [address] Potassium [Moles/Vol] 4.2 mmol/L Normal 3.5-5.3 [facility] Comment on above: Performed By: #### 2 46769325, 4088572, 96132956, 9155010, 89997838, 89429116, 0453392, 0580481 ####[facility] [address] [place] [address] Sodium [Moles/Vol] 131 mmol/L Low 135-145 [facility] Comment on above: Performed By: #### 2 08130531, 8370613, 84299660, 8445620, 67731635, 36155708, 3159716, 6177997 ####[facility] [address] [place] [address] Urea nitrogen [Mass/Vol] 20 mg/dL Normal 5-21 [facility] Comment on above: Performed By: #### 2 07988563, 5462134, 13688811, 4388245, 80734460, 96456332, 3630890, 7133212 ####[address] [place] [address] BOHBon 09-28-2023 Beta HB Qnt 1.22 mmol/L High 0.02-0.27 [facility] Comment on above: Performed By: #### 2 51500179, 0441390, 09391413, 7177696, 61890953, 85561605, 6193340, 1287912 ####[place] [address] [place] [address] Bld Gas Venon 09-28-2023 Allens Test Not Applicable Normal [facility] Comment on above: Performed By: #### 1 0500834 ####[facility] [address] [place] [address] Drawn by lab Invalid Interpretation Code [facility] Comment on above: Performed By: #### 1 9687559 ####[address] [place] [address] FIO2 BG 21 Invalid Interpretation Code [facility] Comment on above: Performed By: #### 1 4958219 ####[address] [place] [address] pCO2 Albert 50.6 mmHg High 38.0-50.0 [facility] Comment on above: Performed By: #### 1 2199409 ####[facility] [address] [place] [address] pH Albert 7.329 Normal 7.320-7.430 [facility] Comment on above: Performed By: #### 1 7256417 ####[address] [address] Sample Site OTHER Normal [facility] Comment on above: Performed By: #### 1 2241879 ####[facility] [address] [place] [address] Sample Type Venous Draw Normal [facility] Comment on above: Performed By: #### 1 0181607 ####[place] [address] [place] [address] CBC w/ Auto Diffon 4 Basophil Absolute 0.1 E9/L Normal 0.0-0.2 [facility] Comment on above: Performed By: #### 2 52353123, 3180294, 88758828, 6053166, 95047919, 71535372, 6578757, 2830577 ####[facility] [address] [place] [address] Basophils/100 WBC (Bld) 1.0 % Normal 0.0-2.0 [facility] Comment on above: Performed By: #### 2 69302764, 4844582, 97417802, 5268655, 50994439, 68992604, 2558284, 5757700 ####[facility] [address] [place] [address] Eos Absolute 0.1 E9/L Normal 0.0-0.5 [facility] Comment on above: Performed By: #### 2 05268481, 4083059, 96047925, 2046713, 08710350, 90679111, 6188159, 2249951 ####[facility] [address] [place] [address] Eosinophils/100 WBC (Bld) 1.7 % Normal 0.0-8.0 [facility] Comment on above: Performed By: #### 2 87595369, 1555302, 55858514, 8175677, 12651670, 63418739, 9000916, 5912534 ####[facility] [address] [place] [address] Erythrocyte distribution width (RBC) [Ratio] 14.8 % High 10.9-14.2 [facility] Comment on above: Performed By: #### 2 67383375, 2420438, 71973789, 6158326, 38984047, 94262393, 9514352, 1866773 ####[address] [place] [address] Hematocrit (Bld) [Volume fraction] 46.0 % Normal 34.0-46.0 [facility] Comment on above: Performed By: #### 2 46602521, 1335911, 12143424, 9535883, 19375006, 30762386, 3230641, 1426142 ####[address] [place] [address] Hemoglobin (Bld) [Mass/Vol] 15.2 g/dL Normal 12.0-16.0 [facility] Comment on above: Performed By: #### 2 67020824, 2074760, 43576469, 2535357, 24932987, 33464467, 4991178, 5408063 ####[place] [address] [place] [address] Lymph Absolute 1.5 E9/L Normal 1.0-4.0 [facility] Comment on above: Performed By: #### 2 50329743, 0622611, 69162162, 5661518, 56765687, 04539113, 1229789, 7078808 ####[address] [place] [address] Lymphocytes/100 WBC (Bld) 20.2 % Normal 14.0-50.0 [facility] Comment on above: Performed By: #### 2 34856654, 0300927, 43393419, 9024804, 67443598, 83923506, 5224548, 7819296 ####[address] [place] [address] MCH (RBC) [Entitic mass] 30.5 pg Normal 27.0-34.0 [facility] Comment on above: Performed By: #### 2 55249085, 3982538, 47261851, 5468876, 18542305, 93366436, 7933035, 3830031 ####[address] [address] MCHC (RBC) [Mass/Vol] 32.8 g/dL Normal 31.4-36.0 [facility] Comment on above: Performed By: #### 2 76269566, 8330940, 65723949, 3427569, 33735767, 36392302, 9625287, 3508846 ####[address] [address] MCV (RBC) [Entitic vol] 93.0 fL Normal 80.0-100.0 [facility] Comment on above: Performed By: #### 2 25755159, 5328553, 10419536, 2864073, 92202003, 72142973, 5068413, 3531690 ####[address] [address] Brown Absolute 0.4 E9/L Normal 0.2-1.0 [facility] Comment on above: Performed By: #### 2 33302023, 7755140, 39610353, 2059599, 29351180, 87796501, 9029039, 1304678 ####[address] [address] Monocytes/100 WBC (Bld) 5.5 % Normal 4.0-14.0 [facility] Comment on above: Performed By: #### 2 99942802, 0674411, 88778156, 9751837, 68228012, 06385533, 6382364, 8312707 ####[facility] [address] [place] [address] Neutro Absolute 5.2 E9/L Normal 2.0-7.5 [facility] Comment on above: Performed By: #### 2 83451306, 0504315, 92653700, 9573185, 17325925, 93853102, 9081295, 5492139 ####[facility] [address] [place] [address] Neutro Auto 71.6 % Normal 36.0-75.0 [facility] Comment on above: Performed By: #### 2 60613761, 4131409, 60034135, 5684061, 20629630, 35734464, 8807909, 7596715 ####[facility] [address] [place] [address] Platelet 288.0 E9/L Normal 150.0-500.0 [facility] Comment on above: Performed By: #### 2 82143686, 2109930, 14201760, 3034804, 46351870, 60740656, 9134665, 6618363 ####[facility] [address] [place] [address] Platelet mean volume (Bld) [Entitic vol] 9.3 fL Normal 6.4-10.8 [facility] Comment on above: Performed By: #### 2 00476553, 3192520, 72264962, 8612600, 34744686, 11886020, 9995621, 3573855 ####[facility] [address] [place] [address] RBC 5.0 E12/L Normal 4.3-5.9 [facility] Comment on above: Performed By: #### 2 77280464, 7427641, 15361373, 7645187, 04668179, 78785096, 3308073, 4276772 ####[facility] [address] [place] [address] WBC 7.3 E9/L Normal 4.0-11.0 [facility] Comment on above: Performed By: #### 2 53244083, 6442684, 84964700, 1256008, 87990146, 44722940, 9876312, 9411022 ####[facility] [address] [place] [address] CHEMISTRYOrdered By: Lab ROP User on 09-28-2023 POC Device SN [id number] 1 Invalid Interpretation Code [facility] POC Subsection POC User ID [id number] 1 Invalid Interpretation Code [facility] POC Subsection POC Username JAVI CARR Invalid Interpretation Code [facility] POC Subsection Glucose [Mass/Vol] 325 mg/dL High 55 - 99 mg/dL [facility] POC Subsection Comment on above: Result Comment: Francisco cook RN/ POC Device SN [id number] 1 Invalid Interpretation Code [facility] POC Subsection POC User ID [id number] 1 Invalid Interpretation Code [facility] POC Subsection POC Username JAVI CARR Invalid Interpretation Code [facility] POC Subsection Glucose [Mass/Vol] 409 mg/dL High 55 - 99 mg/dL [facility] POC Subsection Comment on above: Result Comment: Francisco cook RN/ POC Device SN [id number] 1 Invalid Interpretation Code [facility] POC Subsection POC User ID [id number] 1 Invalid Interpretation Code [facility] POC Subsection POC Username RENETTA DOWLING Invalid Interpretation Code [facility] POC Subsection CHEMISTRYOrdered By: SYSTEM SYSTEM on 09-28-2023 Troponin 3.60 pg/mL Low 10.10 - 27.10 pg/mL [facility] Chem Comment on above: Interpretive Data: T he 95% CI (Confidence Interval) PPV (Positive Predictive Value) for myocardial infarction in females is 38 pg/mL, in males 51 pg/mL. The results should be used in conjunction with clinical conditions of myocardial infarction. (Access High Sensitivity Troponin I Instructions For Use, [employer], April 2018) Albumin [Mass/Vol] 4.2 g/dL Normal 3.3 - [...] High Sensitivity Troponin I Instructions For Use, Y[employer] [place], April 2018) Urea nitrogen [Mass/Vol] 20 mg/dL Normal 5 - 21 mg/dL [facility] Chem Urea nitrogen/Creatinine [Mass ratio] 20 mg/mg Normal 10 - 20 [facility] Chem CHEMISTRYOrdered By: Brook Schaffer on 09-28-2023 Beta HB Qnt 1.22 mmol/L High 0.02 - 0.27 mmol/L [facility] Chem S COAGULATIONOrdered By: Angélica Chapman on 09-28-2023 aPTT Coag (PPP) [Time] 33.3 s Normal 25.1 - 36.5 second(s) [facility] Auto Coag Comment on above: Interpretive Data: Jacob alexander 15 days - 4 weeks 1 - 5 months 6 - 11 months 1 - 5 years 6 - 10 years 11 - 17 years PTT Mean: 35.4 (27.6-45.6) Mean: 33.5 (24.8-40.7) Mean: 32.4 (25.1-40.7) Mean: 31.6 (24.0-39.2) Mean: 31.6 (26.9-38.7) Mean: 31.0 (24.6-38.4) Pediatric Reference ranges were obtained from a study by vicky Holley al. prepared from 1437 samples obtained at 7 different centers using the same coagulation reagent and instrumentation as [facility]. Currently there are no coagulation studies available worldwide for children to 14 days, and no normal ranges. Heparin therapeutic range (represented by Anti-Factor Xa activity of 0.2 - 0.4 U/mL) corresponds to PTT of 56.6 - 109.0 sec. INR Coag (PPP) [Relative time] 0.8 {INR} Invalid Interpretation Code [facility] Auto Coag Comment on above: Interpretive Data: I NR results are specifically intended to assess patients stabilized on long-term Anticoagulation therapy suggested INR s Less Intensive Anticoagulation 2.0 3.0 Conventional Range 3.0 4.5 PT Coag (PPP) [Time] 9.3 s Low 9.4 - 1 2.5 second(s) [facility] Auto Coag Comment on above: Interpretive Data: [...] the same coagulation reagent and instrumentation as [facility]. Currently there are no coagulation studies available worldwide for children to 14 days, and no normal ranges. Capillary Glucose POCOrdered By: Lab ROPUser on 09-28-2023 Glucose [Mass/Vol] 255 mg/dL High 55-99 [facility] P OC Subsection Comment on above: Performed By: #### 2 [id number] ####[facility] [address] [place] [address] Capillary Glucose POCon 09-08 Glucose [Mass/Vol] 325 mg/dL [address] Comment on above: Result Comment: Francisco cook RN/ Performed By: #### 2 14050710 ####[facility] [address] [place] [address] Glucose [Mass/Vol] 409 mg/dL [address] Comment on above: Result Comment: Francisco cook RN/ Performed By: #### 2 60480906 ####[facility] [address] [place] [address] Consent for Treatmenton 09-08 Consent for Treatment [id number]#1.00TIFF Normal [facility] Discharge Instructionson Discharge Instructions [id number]#1.00TIFF Normal [facility] ED Clinical Summaryon 2023 ED Clinical Summary (Inserted Image. Marina ble to display) [address] [address] ED Clinical Summary Person Information Name: JADA GRANADOS/[facility]_[place]ar Age: 43 Years : 1980 Sex: Female Language: Singaporean PCP: BHANU MAR CNP Marital Status: Single Visit Id: Visit Reason: Headache; Diarrhea; Vomiting; [...] 19:09:51 09/28/2023 19:09:51 09/28/2023 19:09:51 ADDRESS: [address] [id number] PHYS DOC NOTES: MEDICAL INFORMATION: Prescriptions Given: New Medications [id number] [address] [facility] [address] [place], [place] [id number], [phone] metoclopramide (Reglan 10 mg Tab) 1 Tablets [...] a day. PATIENT EDUCATION INFORMATION: Instructions: Hyperglycemia, Dpck-xl-Qlot; Blood Glucose Monitoring, Adult; Nausea and Vomiting, Adult, Fvjj-mz-Hqgx Follow up: With: Address: When: BHANU [facility], [place] [address] Business ([employer] In 3 days 10/01/2023 Comments: Follow-up with your primary care provider in 3 to 5 days. If symptoms worsen, do not improve, or new symptoms arise please report back to emergency department for further evaluation. DIAGNOSIS: Elevated blood sugar; Nausea and vomiting Normal [facility] ED Patient Education Noteon 09-28-2023 ED Patient [...] instructions at home: General instructions ? Take xuyj-kmd-zbknkjl and prescription medicines only as told by [...] have diabetes. Where to find more information [place] [employer]: www.diabetes.org Contact a doctor if: [...] You fe (more content not included)... Normal [facility] ED Patient Summaryon 024 ED Patient Summary (Inserted Image. Marina ble to display) [address] [address] Patient Discharge Instructions Person Information Name: JADA GRANADOS Age: 43 Years Arrival Date: 09/28/2023 14:15:41 Discharge Diagnosis: Elevated blood sugar; Nausea and vomiting Primary Care Physician: BHANU MAR CNP Provider Information Primary Provider: Srinivas Easley DO Advanced Impregnator And Drier Helper:None The exam and treatment you received in the Emergency Department were for an urgent problem and are not intended as complete care. It is important that you follow up with a doctor, nurse practitioner, or physician?s judicial assistant for ongoing care. If your symptoms become worse or you do not improve as expected and you are unable to reach your usual health care provider, you should return to the Emergency Department. We are available 24 hours a day. JADA GRANADOS has been given the following list of patient education materials, prescriptions and follow-up instructions: Follow-up Instructions: With: Address: When: BHANU [facility], [place] [address] Business (1) In 3 days 10/01/2023 Comments: [...] nearby participating provider. Patient Education Materials: Hyperglycemia, Unvh-cl-Qsnt; Blood Glucose Monitoring, Adult; Nausea and Vomiting, Adult, Nuch-fa-Nsjk A MESSAGE TO ALL PATIENTS REGARDING OPIOIDS PRESCRIPTION OPIOIDS: WHAT YOU NEED TO KNOW Prescription opioids can be used to help relieve ldeomykx-wr-sblgis pain and are often prescribed following a [...] (www.fda.gov/Drugs/Resour cesFor (more content not included)... Normal [facility] Blood GasesOrdered By: Juliana Parmar on 09-28-2023 Allens Test Not Applicable (09/28/23 3:32 PM) Normal [facility] Resp Auto SS Drawn by lab Invalid Interpretation Code [facility] Resp Auto SS FIO2 BG 21 1 Invalid Interpretation Code [facility] Resp Auto SS pCO2 Albert 50.6 mm[Hg] High 38.0 - 50.0 mmHg [facility] Resp Auto SS pH (Bld) 7.329 [pH] Normal 7.320 - 7.430 [facility] Resp Auto SS Sample Site OTHER (09/28/23 3:32 PM) Normal [facility] Resp Auto SS Sample Type Venous Draw (09/28/23 3:32 PM) Normal [facility] Resp Auto SS HEMATOLOGYOrdered By: SYSTEM SYSTEM [...] Normal 80.0 - 100.0 fL Remisol Heme Brown Absolute 0.4 E9/L Normal 0.2 - 1.0 [...] 09-28-2023 Albumin [Mass/Vol] 4.2 g/dL Normal 3.3-5.0 [facility] Comment on above: Performed By: #### 2 60555781, 6735433, 30751297, 4526028, 56749415, 63898600, 3945480, 4468659 ####[facility] [place] [address] Albumin/Globulin [Mass ratio] 1.3 {ratio} Normal 1.1-2.2 [facility] Comment on above: Performed By: #### 2 49658140, 1197920, 62653372, 9651326, 23665256, 68581875, 5701027, 0544189 ####[place] [address] [place] [address] Alk Phos 103 Int._Unit/L High 21-98 [facility] Comment on above: Performed By: #### 2 85563229, 1606716, 55738046, 5846787, 17794853, 25770345, 2750361, 4952913 ####[address] [place] [address] ALT 27 Int._Unit/L Normal 6-46 [facility] Comment on above: Performed By: #### 2 70483563, 4871623, 80021892, 2831572, 39115217, 92512795, 6571638, 1112320 ####[address] [address] AST 14 Int._Unit/L Normal 5-43 [facility] Comment on above: Performed By: #### 2 14854750, 7771907, 59140344, 9448723, 82950999, 44481183, 8568944, 8728062 ####[address] [address] Bili Direct 0.1 mg/dL Normal 0.0-0.4 [facility] Comment on above: Performed By: #### 2 83603957, 8627766, 93274878, 9393667, 39732909, 69078872, 3955489, 8673588 ####[facility] [address] [place] [address] Bili Indirect 0.6 mg/dL Normal 0.1-0.9 [facility] Comment on above: Performed By: #### 2 97638414, 7147586, 93655624, 8983575, 02435366, 75861599, 9173847, 1664043 ####[facility] [address] [place] [address] Bili Total 0.7 mg/dL Normal 0.0-1.1 [facility] Comment on above: Performed By: #### 2 05266228, 2970224, 00310539, 1705425, 76258277, 32983490, 5841712, 7870986 ####[facility] [address] [place] [address] Globulin (S) [Mass/Vol] 3.3 g/dL Normal 1.4-4.0 [facility] Comment on above: Performed By: #### 2 77588955, 1060298, 70241023, 4273276, 26514142, 65199430, 6327677, 0555178 ####[facility] [address] [place] [address] Protein [Mass/Vol] 7.5 g/dL Normal 6.0-7.8 [facility] Comment on above: Performed By: #### 2 75599660, 7490167, 52488677, 7561991, 00491257, 49372940, 3660378, 5375833 ####[facility] [address] [place] [address] Lipase Levelon 09-28-2023 Lipase Lvl 26 unit/L Normal 13-58 [facility] Comment on above: Performed By: #### 2 19332487, 6911720, 54164976, 2458364, 71844258, 55568455, 4095301, 9341625 ####[facility] [address] [place] [address] Monitor Recordon 09-28-2023 Monitor Record [id number]#1.00TIFF Normal [facility] PT & PTTon 09-28-2023 aPTT Coag (PPP) [Time] 33.3 second(s) Normal 25.1-36.5 [facility] Comment on above: Result Comment: Para meter [...] the same coagulation reagent and instrumentation as [facility]. Currently there are no coagulation studies available worldwide for children to 14 days, and no normal ranges. Heparin therapeutic range (represented by Anti-Factor Xa activity of 0.2 - 0.4 U/mL) corresponds to PTT of 56.6 - 109.0 sec. Performed By: #### 1 7405608 ####[facility] [address] [place] [address] INR Coag (PPP) [Relative time] 0.8 {INR} Invalid Interpretation Code [facility] Comment on above: Result Comment: INR results are specifically intended to assess patients stabilized on long-term Anticoagulation therapy suggested INR?s ?Less Intensive Anticoagulation? 2.0 ? 3.0 Conventional Range 3.0 ? 4.5 Performed By: #### 1 1913785 ####[facility] [address] [place] [address] PT Coag (PPP) [Time] 9.3 second(s) Low 9.4-12.5 [facility] Comment on above: Result Comment: 15 d [...] were obtained from a study by Reji Helm, et al. prepared from 1437 samples obtained at 7 different centers using the same coagulation reagent and instrumentation as [facility]. Currently there are no coagulation studies available worldwide for children to 14 days, and no normal ranges. Performed By: #### 1 7131459 ####[facility] [address] [place] [address] SEROLOGYOrdered By: Riri Chapman on 09-28-2023 Beta HCG ( test) Ql Negative (09/28/23 3:30 PM) Normal [facility] Man Sero Troponin 0 Hr.on 09-28-2023 Troponin 3.90 pg/mL Low 10.10-27.10 [facility] Comment on above: Result Comment: The 95% CI (Confidence Interval) PPV (Positive Predictive Value) for myocardial infarction in females is 38 pg/mL, in males 51 pg/mL. The results should be used in conjunction with clinical conditions of myocardial infarction. (Access High Sensitivity Troponin I Instructions For Use, [employer], April 2018) Performed By: #### 2 01296195, 1046424, 80432758, 0998882, 75459674, 93114532, 2995185, 5496552 ####[facility] [address] [place] [address] Troponin 3 Hr.on 09-28-2023 Troponin 3.60 pg/mL Low 10.10-27.10 [facility] Comment on above: Result Comment: The 95% CI (Confidence Interval) PPV (Positive Predictive Value) for myocardial infarction in females is 38 pg/mL, in males 51 pg/mL. The results should be used in conjunction with clinical conditions of myocardial infarction. (Access High Sensitivity Troponin I Instructions For Use, [employer], April 2018) Performed By: #### 1 6067644 ####[facility] [address] [place] [address] UA With Cult Reflexon 2023 Bilirubin Ql (U) Negative Normal Negative [facility] Comment on above: Performed By: #### 1 0721180 ####[facility] [address] [place] [address] Clarity (U) CLEAR Normal Clear [facility] Comment on above: Performed By: #### 1 1153772 ####[facility] [address] [place] [address] Color (U) STRAW Abnormal Yellow [facility] Comment on above: Performed By: #### 1 1190885 ####[address] [place] [address] Epithelial cells.squamous LM.HPF (Urine sed) [#/Area] 0-2 Normal 0-2 [facility] Comment on above: Performed By: #### 1 5741183 ####[address] [address] Glucose Test strip (U) [Mass/Vol] 3+ Abnormal Negative [facility] Comment on above: Performed By: #### 1 5731185 ####[address] [address] Hemoglobin Ql (U) TRACE Abnormal Negative [facility] Comment on above: Performed By: #### 1 2892196 ####[address] [address] Ketones (U) [Mass/Vol] 1+ Abnormal Negative [facility] Comment on above: Performed By: #### 1 1936200 ####[address] [address] Patriot.plasma/Lithi um.RBC (Bld) [Mass ratio] 0-3 Normal 0-3 [facility] Comment on above: Performed By: #### 1 9983812 ####[facility] [address] [place] [address] Nitrite Ql (U) Negative Normal Negative [facility] Comment on above: Performed By: #### 1 3504862 ####[address] [address] pH (U) 5.5 [pH] Invalid Interpretation Code 5.0-9.0 [place] Comment on above: Performed By: #### 1 [id number] ####[address] [address] Protein (U) [Mass/Vol] Negative Normal Negative [place] Comment on above: Performed By: #### 1 [id number] ####[place] [address] [place] [address] Specific gravity (U) [Rel density] 1.010 Invalid Interpretation Code 1.005-1.030 [place] Comment on above: Performed By: #### 1 [id number] ####[place] [address] Type of Urine collection method Clean Catch Normal [place] Comment on above: Performed By: #### 1 [id number] ####[address] [address] Urobilinogen Qn (U) 0.2 {Jesus'U}/dL Normal 0.0-1.0 [place] Comment on above: Performed By: #### 1 [id number] ####[address] [address] WBC Auto Ql (U) Negative Normal Negative [facility] Comment on above: Performed By: #### 1 [id number] ####[place] [address] [place] [address] WBC LM.HPF (Urine sed) [#/Area] 0-5 Normal 0-5 [place] Comment on above: Performed By: #### 1 [id number] ####[address] [address] URINALYSISOrdered By: Inga Chapman on 09-28-2023 Bilirubin Ql (U) Negative (09/28/23 3:30 PM) Normal Negative [facility] Auto SS Clarity (U) Clear (09/28/23 3:30 PM) Normal Clear [facility] UA Auto SS Color (U) Straw *ABN* (09/28/23 3:30 PM) Invalid Interpretation Code Yellow [facility] UA Auto SS Epithelial cells.squamous [...] Interpretation Code Negative [facility] UA Auto SS Patriot.plasma/Lithi um.RBC (Bld) [Mass ratio] 0-3 /HPF Normal [...] Desc Clean Catch (09/28/23 3:30 PM) Normal [facility] UA Auto SS Urobilinogen Qn (U) 0.6306962 {Jesus'U}/dL Normal 0.0 - 1.0 EU/dL [facility] UA Auto SS WBC Auto Ql (U) Negative (09/28/23 3:30 PM) Normal Negative [facility] UA Auto SS WBC LM.HPF (Urine sed) [#/Area] 0-5 /HPF Normal 0-5/HPF [facility] Auto SS XR Chest Single Viewon [...] mGy = na DAP = na Normal [place] eGFRon 09-28-2023 eGFR 71 mL/min/1.73 m2 Normal >=59 [place] Comment on above: Order Comment: Order added by Discern Expert. Performed By: #### 2 [id number], [id number], [id number], [id number], [id number] ####[place] [address] [place] [address] Diabetic Self Management Edu cationon 07-29-2023 Diabetic Self Management Education [id number]#[id number] Normal [place] Patient Eval Forms Officeon 03-11-2023 Patient Eval Forms Office [id number]#1.00CD:1 27 Normal [place] Initial Visit (Nephrology)on 03-04-2023 Initial Visit (Nephrology) [...] using NSAIDs She has not seen an avionics installer for over 2 years, I did give [...] no residual effects Obesity Neuropathy 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 Normal [facility] Tobacco Screening.on 023 Tobacco use status [facility] b) No MP-Nephrology -[facility] 3 DO Work Phone: BASIC METABOLIC PANELon 02-06 Anion gap [Moles/Vol] 12 mmol/L Normal 10 - 20 [facility] Comment on above: Performed By: #### B MP #### [address] [address] Calcium [Mass/Vol] 9.2 mg/dL Normal 8.6 - 10.3 [facility] Comment on above: Performed By: #### B MP #### [address] [address] Chloride [Moles/Vol] 106 mmol/L Normal 98 - 107 [facility] [place] Comment on above: Performed By: #### B MP #### [address] [address] Creatinine [Mass/Vol] 1.20 mg/dL High 0.50 - 1.05 [facility] Comment on above: Performed By: #### B MP #### [address] [address] GFR/1.73 sq M.predicted among non-blacks MDRD (S/P/Bld) [Vol rate/Area] 57 mL/min/{1.73_m2} Abnormal >90 [facility] Comment on above: Result Comment: CALC ULATIONS OF ESTIMATED GFR ARE PERFORMED USING THE 2020 CKD-EPI STUDY REFIT EQUATION WITHOUT THE RACE VARIABLE FOR THE IDMS-TRACEABLE CREATININE METHODS. https://jasn.asnjournals.org/content//ASN.3161290 988 Performed By: #### B MP #### [address] [address] Glucose [Mass/Vol] 196 mg/dL High 74 - 99 [facility] Comment on above: Performed By: #### B MP #### [address] [address] HCO3 (Bld) [Moles/Vol] 26 mmol/L Normal 21 - 32 [facility] Comment on above: Performed By: #### B MP #### [address] [address] Potassium [Moles/Vol] 4.7 mmol/L Normal 3.5 - 5.3 [facility] Comment on above: Performed By: #### B MP #### [address] [address] Sodium [Moles/Vol] 139 mmol/L Normal 136 - 145 [facility] Comment on above: Performed By: #### B MP #### [address] [address] Urea nitrogen [Mass/Vol] 31 mg/dL High 6 - 23 [facility] Comment on above: Performed By: #### B #### [facility] [address] [place] [address] Laboratory - Chemistry and C hemistry - challengeon 03-03-2023 Anion gap [Moles/Vol] 12 mmol/L 10 - 20 -Nephrology [place] [address] DO Work Phone: [phone] Calcium [Mass/Vol] 9.2 mg/dL 8.6 - 10.3 -Nep ology [place] [address] DO Work Phone: [phone] Chloride [Moles/Vol] 106 mmol/L 98 - 107 -N ephrology [place] [address] DO Work Phone: [phone] CO2 [Moles/Vol] 26 mmol/L 21 - 32 -Nephro logy [place] [address] DO Work Phone: [phone] Creatinine [Mass/Vol] 1.20 mg/dL above high threshold See Below [facility] [address] [facility] Work Phone: Comment on above: Reference Range: 0.5 0 - 1.05 Glucose [Mass/Vol] 196 mg/dL above high threshold 74 - 99 [facility] [place] [address] DO Work Phone: [phone] Potassium [Moles/Vol] 4.7 mmol/L 3.5 - 5.3 [facility] [address] DO Work Phone: [phone] Sodium [Moles/Vol] 139 mmol/L 136 - 145 [place] [address] DO Work Phone: Urea nitrogen [Mass/Vol] 31 mg/dL above high threshold 6 - 23 [facility] [place] [address] DO Work Phone: No Panel Informationon 03-03 57 {mL/min/1.73m2} Abnormal >90 [place] [address] DO Work Phone: Comment on above: CALCULATIONS OF SACHIN MATED GFR ARE PERFORMED USING THE 2020 CKD-EPI STUDY REFIT EQUATION WITHOUT THE RACE VARIABLE FOR THE IDMS-TRACEABLE CREATININE METHODS.https://jasn.asnjournals.org/content//ASN .6899018074 Consent for Treatmenton 02-06 Consent for Treatment [id number]#1.00CD:12 7 Normal [place] CBC AND DIFFERENTIALon 02-10 % AUTOMATED IMMATURE GRAN 0.1 % Normal 0.0 - 0.9 [facility] Comment on above: Result Comment: Alla ture Granulocyte Count (IG) includes promyelocytes, myelocytes and metamyelocytes but does not include bands. Percent differential counts (%) should be interpreted in the context of the absolute cell counts (cells/L). Performed By: #### C BCDF ####[address] [address] Basophils (Bld) [#/Vol] 0.06 10*3/uL Normal 0.00 - 0.10 [facility] Comment on above: Performed By: #### C BCDF ####[address] [address] Basophils/100 WBC (Bld) 0.8 % Normal 0.0 - 2.0 [facility] Comment on above: Performed By: #### C BCDF ####[address] [address] Eosinophils (Bld) [#/Vol] 0.14 10*3/uL Normal 0.00 - 0.70 [facility] Comment on above: Performed By: #### C BCDF ####[address] [address] Eosinophils/100 WBC (Bld) 1.9 % Normal 0.0 - 6.0 [facility] Comment on above: Performed By: #### C BCDF ####[address] [address] Erythrocyte distribution width (RBC) [Ratio] 14.1 % Normal 11.5 - 14.5 [facility] Comment on above: Performed By: #### C BCDF ####[address] [address] Hematocrit (Bld) [Volume fraction] 39.9 % Normal 36.0 - 46.0 [facility] Comment on above: Performed By: #### C BCDF ####[address] [address] Hemoglobin (Bld) [Mass/Vol] 12.8 g/dL Normal 12.0 - 16.0 [facility] Comment on above: Performed By: #### C BCDF ####[address] [address] Lymphocytes (Bld) [#/Vol] 2.80 10*3/uL Normal 1.20 - 4.80 [facility] Comment on above: Performed By: #### C BCDF ####[address] [address] Lymphocytes/100 WBC (Bld) 37.2 % Normal 13.0 - 44.0 [facility] Comment on above: Performed By: #### C BCDF ####[address] [address] MCHC (RBC) [Mass/Vol] 32.1 g/dL Normal 32.0 - 36.0 [facility] Comment on above: Performed By: #### C BCDF ####[address] [address] MCV (RBC) [Entitic vol] 90 fL Normal 80 - 100 [facility] Comment on above: Performed By: #### C BCDF ####[address] [address] Monocytes (Bld) [#/Vol] 0.54 10*3/uL Normal 0.10 - 1.00 [facility] Comment on above: Performed By: #### C BCDF ####[address] [address] Monocytes/100 WBC (Bld) 7.2 % Normal 2.0 - 10.0 [facility] Comment on above: Performed By: #### C BCDF ####[address] [address] Neutrophils (Bld) [#/Vol] 3.97 10*3/uL Normal 1.20 - 7.70 [facility] Comment on above: Result Comment: Perc ent differential counts (%) should be interpreted in the context of the absolute cell counts (cells/L). Performed By: #### C BCDF ####[address] [address] Neutrophils/100 WBC (Bld) 52.8 % Normal 40.0 - 80.0 [facility] Comment on above: Performed By: #### C BCDF ####[address] [address] Platelets (Bld) [#/Vol] 281 10*3/uL Normal 150 - 450 [facility] Comment on above: Performed By: #### C BCDF ####[address] [address] RBC 4.44 x10E12/L Normal 4.00 - 5.20 [facility] Comment on above: Performed By: #### C BCDF ####[address] [address] WBC (Bld) [#/Vol] 7.5 10*3/uL Normal 4.4 - 11.3 [facility] Comment on above: Performed By: #### C BCDF ####[address] [address] COMPREHENSIVE PANELon 2022 Albumin [Mass/Vol] 4.0 g/dL Normal 3.4 - 5.0 [facility] Comment on above: Performed By: #### C MP ####[address] [address] ALP [Catalytic activity/Vol] 66 U/L Normal 33 - 110 [facility] Comment on above: Performed By: #### C MP ####[address] [address] ALT [Catalytic activity/Vol] 17 U/L Normal 7 - 45 [facility] Comment on above: Result Comment: Bridget ents treated with Sulfasalazine may generate falsely decreased results for ALT. Performed By: #### C MP ####[address] [address] Anion gap [Moles/Vol] 10 mmol/L Normal 10 - 20 [facility] Comment on above: Performed By: #### C MP ####[address] [address] AST [Catalytic activity/Vol] 11 U/L Normal 9 - 39 [facility] Comment on above: Performed By: #### C MP ####[address] [address] Bilirubin [Mass/Vol] 0.4 mg/dL Normal 0.0 - 1.2 [facility] Comment on above: Performed By: #### C MP ####[address] [address] Calcium [Mass/Vol] 9.9 mg/dL Normal 8.6 - 10.3 [facility] Comment on above: Performed By: #### C MP ####[address] [address] Chloride [Moles/Vol] 102 mmol/L Normal 98 - 107 [facility] Comment on above: Performed By: #### C MP ####[address] [address] Creatinine [Mass/Vol] 1.37 mg/dL High 0.50 - 1.05 [facility] Comment on above: Performed By: #### C MP ####[address] [address] GFR/1.73 sq M.predicted among non-blacks MDRD (S/P/Bld) [Vol rate/Area] 49 mL/min/{1.73_m2} Abnormal >90 [facility] Comment on above: Result Comment: CALC ULATIONS OF ESTIMATED GFR ARE PERFORMED USING THE 2020 CKD-EPI STUDY REFIT EQUATION WITHOUT THE RACE VARIABLE FOR THE IDMS-TRACEABLE CREATININE METHODS.https://jasn.asnjournals.org/content//ASN .9926106364 Performed By: #### C MP ####[address] [address] Glucose [Mass/Vol] 151 mg/dL High 74 - 99 [facility] Comment on above: Performed By: #### C MP ####[address] [address] HCO3 (Bld) [Moles/Vol] 28 mmol/L Normal 21 - 32 [facility] Comment on above: Performed By: #### C MP ####[address] [address] Potassium [Moles/Vol] 4.6 mmol/L Normal 3.5 - 5.3 [facility] Comment on above: Performed By: #### C MP ####[address] [address] Protein [Mass/Vol] 7.3 g/dL Normal 6.4 - 8.2 [facility] Comment on above: Performed By: #### C MP ####[address] [address] Sodium [Moles/Vol] 135 mmol/L Low 136 - 145 [facility] Comment on above: Performed By: #### C MP ####[address] [address] Urea nitrogen [Mass/Vol] 33 mg/dL High 6 - 23 [facility] Comment on above: Performed By: #### C MP ####[address] [address] [address] ABDOMEN AND PELVIS WO CON TRASTon 02-10-2023 CT ABDOMEN AND PELVIS WO CONTRAST Normal [facility] CT Abdomen and Pelvis withou t Contraston 02-10-2023 CT Abdomen and Pelvis WO contrast Normal -Nephrology [facility] 3 DO Work Phone: Complete Blood Count + Diffe rentialon 02-10-2023 Basophils/100 WBC (Bld) 0.8 % 0.0 - 2.0 -Nephrology [facility] 3 DO Work Phone: Erythrocyte distribution width (RBC) [Ratio] 14.1 % See Below [place] [address] DO Work Phone: Comment on above: Reference Range: 11. 5 - 14.5 Hematocrit (Bld) [Volume fraction] 39.9 % See Below [place] [address] DO Work Phone: Comment on above: Reference Range: 36. 0 - 46.0 Hemoglobin (Bld) [Mass/Vol] 12.8 g/dL See Below [place] [address] DO Work Phone: Comment on above: Reference Range: 12. 0 - 16.0 Lymphocytes/100 WBC (Bld) 37.2 % See Below [place] [address] DO Work Phone: Comment on above: Reference Range: 13. 0 - 44.0 MCHC (RBC) [Mass/Vol] 32.1 g/dL See Below [place] [address] DO Work Phone: Comment on above: Reference Range: 32. 0 - 36.0 MCV (RBC) [Entitic vol] 90 fL 80 - 100 [place] [address] DO Work Phone: Monocytes/100 WBC (Bld) 7.2 % 2.0 - 10.0 [place] [address] DO Work Phone: Neutrophils/100 WBC (Bld) 52.8 % See Below [place] [address] DO Work Phone: Comment on above: Reference Range: 40. 0 - 80.0 Platelets (Bld) [#/Vol] 281 10*3/uL 150 - 450 [place] [address] DO Work Phone: RBC (Bld) [#/Vol] 4.44 {x10E12/L} See Below [place] [address] DO Work Phone: Comment on above: Reference Range: 4.0 0 - 5.20 WBC (Bld) [#/Vol] 7.5 10*3/uL 4.4 - 11.3 [facility] hrology [place] [address] DO Work Phone: Complete Blood Count + Differential 0.06 {x10E9/L} See Below [place] [address] DO Work Phone: Comment on above: Reference Range: 0.0 0 - 0.10 Complete Blood Count + Differential 0.14 {x10E9/L} See Below [place] [address] DO Work Phone: Comment on above: Reference Range: 0.0 0 - 0.70 Complete Blood Count + Differential 0.54 {x10E9/L} See Below [place] [address] DO Work Phone: Comment on above: Reference Range: 0.1 0 - 1.00 Complete Blood Count + Differential 2.80 {x10E9/L} See Below [place] [address] DO Work Phone: Comment on above: Reference Range: 1.2 0 - 4.80 Complete Blood Count + Differential 3.97 {x10E9/L} See Below [place] [address] DO Work Phone: Comment on above: Reference Range: 1.2 0 - 7.70 Percent differential counts (%) should be interpreted in the context of the absolute cell counts (cells/L). Complete Blood Count + Differential 1.9 % 0.0 - 6.0 [place] [address] DO Work Phone: Complete Blood Count + Differential 0.1 % 0.0 - 0.9 [place] [address] DO Work Phone: Comment on above: Immature Granulocyte Count (IG) includes promyelocytes, myelocytes and metamyelocytes but does not include bands. Percent differential counts (%) should be interpreted in the context of the absolute cell counts (cells/L). Cult, Urineon 02-10-2023 Bacteria identified Cx Nom (U) [place] [address] DO Work Phone: [phone] LACTATEon 02-10-2023 Lactate [Moles/Vol] 1.1 mmol/L Normal 0.4 - 2.0 [facility] Comment on above: Result Comment: Paris puncture immediately after or during the administration of Metamizole may lead to falsely low results. Testing should be performed immediately prior to Metamizole dosing. Performed By: #### L ACT ####[place] [id number] [place] [id number] Laboratory - Chemistry and C hemistry - challengeon 02-10-2023 Albumin BCP dye [Mass/Vol] 4.0 g/dL 3.4 - 5.0 [place] [address] DO Work Phone: [phone] ALP [Catalytic activity/Vol] 66 U/L 33 - 110 [place] [address] DO Work Phone: ALT With P-5'-P [Catalytic activity/Vol] 17 U/L 7 - 45 [place] [address] DO Work Phone: Comment on above: Patients treated wit h Sulfasalazine may generate falsely decreased results for ALT. Anion gap [Moles/Vol] 10 mmol/L 10 - 20 [place] [address] DO Work Phone: AST With P-5'-P [Catalytic activity/Vol] 11 U/L 9 - 39 [place] [address] DO Work Phone: [phone] Bilirubin [Mass/Vol] 0.4 mg/dL 0.0 - 1.2 [place] [address] DO Work Phone: Calcium [Mass/Vol] 9.9 mg/dL 8.6 - 10.3 -Nep hrology [place] [address] DO Work Phone: Chloride [Moles/Vol] 102 mmol/L 98 - 107 -N ephrology [place] [address] DO Work Phone: CO2 [Moles/Vol] 28 mmol/L 21 - 32 -Nephro logy [place] [address] DO Work Phone: Creatinine [Mass/Vol] 1.37 mg/dL above high threshold See Below [place] [address] DO Work Phone: Comment on above: Reference Range: 0.5 0 - 1.05 Glucose [Mass/Vol] 151 mg/dL above high threshold 74 - 99 [place] [address] DO Work Phone: Potassium [Moles/Vol] 4.6 mmol/L 3.5 - 5.3 [place] [address] DO Work Phone: Protein [Mass/Vol] 7.3 g/dL 6.4 - 8.2 -[place] [address] DO Work Phone: Sodium [Moles/Vol] 135 mmol/L below low threshold 136 - 145 [place] [address] DO Work Phone: Urea nitrogen [Mass/Vol] 33 mg/dL above high threshold 6 - 23 [place] [address] DO Work Phone: Lactate, Levelon 02-10-2023 Lactate [Moles/Vol] 1.1 mmol/L 0.4 - 2.0 -Ne phr[place] [address] DO Work Phone: Comment on above: Venipuncture immedia tely after or during the administration of Metamizole may lead to falsely low results. Testing should be performed immediately prior to Metamizole dosing. No Panel Informationon 02-10 49 {mL/min/1.73m2} Abnormal >90 [facility] [place] 3 DO Work Phone: Comment on above: CALCULATIONS OF SACHIN MATED GFR ARE PERFORMED USING THE 2020 CKD-EPI STUDY REFIT EQUATION WITHOUT THE RACE VARIABLE FOR THE IDMS-TRACEABLE CREATININE METHODS.https://jasn.asnjournals.org/content//ASN .6401732218 Provider Note - ED v3on 06-0 Provider Note - ED v3 Normal [facility] Risk Screen - Adult Emergenc yon 02-10-2023 Risk Screen - Adult Emergency Normal [facility] TROPONIN I, HIGH SENSITIVITY on 02-10-2023 TROPONIN I, HIGH SENSITIVITY 3 ng/L Normal 0 - 13 [facility] Comment on above: Result Comment: .Les s [...] is performed using a differenttesting methodology at [facility] than at [facility]. Direct result comparisons should onlybe made within the same method. Performed By: #### T [facility] ####[place] [address] Tropinin I.cardiac panel High sensitivity method 3 ng/L 0 - 13 [facility] 3 DO Work Phone: Comment on [...] performed using a different testing methodology at [facility] than at other [facility]. Direct result comparisons should only be made within the same method. TSHon 02-10-2023 TSH Qn 2.54 m[IU]/L Normal 0.44 - 3.98 [facility] Comment on above: Result Comment: TSH testing is performed using different testing methodology at [facility] than at other [facility]. Direct result comparisons should only be made within the same method. Performed By: #### T SH2 ####[place] [address] TSH - Thyroid Stimulating Ho rmone, Serumon 02-10-2023 TSH Qn 2.54 m[IU]/L See Below MP-Nephrolog y -[facility] 3 DO Work Phone: Comment on above: Reference Range: 0.4 4 - 3.98 TSH testing is performed using different testing methodology at [facility] than at other [facility]. Direct result comparisons should only be made within the same method. Triage - EDon 02-10-2023 Triage - ED Normal [facility] UA MICROSCOPICon 02-10-2023 BACTERIA 1+ /HPF Abnormal [facility] Comment on above: Performed By: #### U AMIC ####[place] [address] RBC 1 /HPF Normal 0-5 [facility] Comment on above: Performed By: #### U AMIC ####[place] [address] SQUAMOUS EPITH. CELLS 11 /HPF Normal [facility] Comment on above: Performed By: #### U AMIC ####[place] [address] WBC 8 /HPF Abnormal 0-5 [facility] Comment on above: Performed By: #### U AMIC ####[place] [address] URINALYSIS WITH CULTURE IF I NDICATEDon 02-10-2023 Appearance (U) HAZY Normal CLEAR [facility] Comment on above: Performed By: #### U ARFX ####[place] [address] Bilirubin Ql (U) Negative Normal NEGATIVE [facility] Comment on above: Performed By: #### U ARFX ####[place] [address] Color (U) Yellow Normal STRAW,YELLO W [facility] Comment on above: Performed By: #### U ARFX ####[place] [address] Glucose Ql (U) >=500(3+) Abnormal NEGATIVE [facility] Comment on above: Performed By: #### U ARFX ####[place] [address] Hemoglobin Ql (U) Negative Normal NEGATIVE [facility] Comment on above: Performed By: #### U ARFX ####[place] [address] Ketones Ql (U) Negative Normal NEGATIVE [facility] Comment on above: Performed By: #### U ARFX ####[place] [address] Leukocyte esterase Test strip Ql (U) TRACE Abnormal NEGATIVE [facility] Comment on above: Performed By: #### U ARFX ####[place] [address] Nitrite Ql (U) Negative Normal NEGATIVE [facility] Comment on above: Performed By: #### U ARFX ####[place] [address] pH (U) 5.0 [pH] Normal 5.0 - 8.0 [facility] Comment on above: Performed By: #### U ARFX ####[address] [address] Protein Ql (U) Negative Normal NEGATIVE [facility] Comment on above: Performed By: #### U ARFX ####[address] [address] Specific gravity (U) [Rel density] 1.021 Normal 1.005 - 1.035 [facility] Comment on above: Performed By: #### U ARFX ####[address] [address] Urobilinogen (U) [Mass/Vol] mg/dL Normal 0.0 - 1.9 [facility] Comment on above: Performed By: #### U ARFX ####[address] [address] Color (U) Yellow See Below [place] [address] DO Work Phone: Comment on above: Reference Range: STR AW,YELLOW Glucose Ql (U) >=500(3+) Abnormal NEGATIVE MP-Nephrol [place] [address] DO Work Phone: Ketones Ql (U) Negative NEGATIVE MP-Nephrol [place] [address] DO Work Phone: Leukocyte esterase Test strip Ql (U) TRACE Abnormal NEGATIVE [facility] [address] DO Work Phone: [phone] pH (U) 5.0 [pH] 5.0 - 8.0 [facility] [place] [address] DO Work Phone: Protein (U) [Mass/Vol] Negative NEGATIVE [facility] [place] [address] DO Work Phone: RBC (U) [#/Vol] Negative NEGATIVE -Nephro [place] [address] DO Work Phone: Specific gravity (U) [Rel density] 1.021 1 See Below [facility] [place] [address] DO Work Phone: [phone] Comment on above: Reference Range: 1.0 05 - 1.035 URINALYSIS WITH CULTURE IF INDICATED Negative NEGATIVE -Nephrolo [place] [address] DO Work Phone: [phone] URINALYSIS WITH CULTURE IF INDICATED <2.0 0.0 - 1.9 -Nephrolo [place] [address] DO Work Phone: [phone] URINALYSIS WITH CULTURE IF INDICATED HAZY CLEAR -Nephrolo [place] [address] DO Work Phone: [phone] URINE CULTURE,BACTERIALon URINE CULTURE,BACTERIAL Normal [facility] Comment on above: Performed By: #### U [facility] ####[id number] [place] [address] Urinalysis, Microscopicon Urinalysis, Microscopic 1+ Abnormal [facility] [address] DO Work Phone: [phone] Urinalysis, Microscopic 11 {/HPF} [place] [address] DO Work Phone: [phone] Urinalysis, Microscopic 1 {/HPF} 0-5 [place] [address] DO Work Phone: [phone] Urinalysis, Microscopic 8 {/HPF} Abnormal 0-5 [place] [address] DO Work Phone: [phone] ARTERIAL FULL PANELon 2022 Anion gap [Moles/Vol] 12 mmol/L Normal 10 - 25 [facility] Comment on above: Performed By: #### A FPA4 ####[address] [address] BASE EXCESS-BLOOD -4.7 mmol/L Low -2.0 - 3.0 [facility] Comment on above: Performed By: #### A FPA4 ####[address] [address] BICARB, CALCULATED 21.1 mmol/L Low 22.0 - 26.0 [facility] Comment on above: Performed By: #### A FPA4 ####[place] [id number] CALCIUM,IONIZED 1.24 mmol/L Normal 1.10 - 1.33 [facility] Comment on above: Performed By: #### A FPA4 ####[place] [id number] Chloride [Moles/Vol] 103 mmol/L Normal 98 - 107 [facility] Comment on above: Performed By: #### A FPA4 ####[place] [id number] FIO2 21 % Normal [facility] Comment on above: Performed By: #### A FPA4 ####[place] [id number] Glucose [Mass/Vol] 228 mg/dL High 74 - 99 [facility] Comment on above: Performed By: #### A FPA4 ####[place] [address] Hematocrit (Bld) [Volume fraction] 36.0 % Normal 36.0 - 46.0 [facility] Comment on above: Performed By: #### A FPA4 ####[place] [id number] Hemoglobin (Bld) [Mass/Vol] 11.9 g/dL Low 12.0 - 16.0 [facility] Comment on above: Performed By: #### A FPA4 ####[place] [id number] Lactate [Moles/Vol] 1.5 mmol/L Normal 0.4 - 2.0 [facility] Comment on above: Performed By: #### A FPA4 ####[address] [address] OXY HGB 94.5 % Normal 94.0 - 98.0 [facility] Comment on above: Performed By: #### A FPA4 ####[facility] [id number] [place] [address] Oxygen (Bld) [Partial pressure] 77 mm[Hg] Low 85 - 95 [facility] Comment on above: Performed By: #### A FPA4 ####[address] [address] PATIENT TEMPERATURE 37.0 degrees C Normal S [facility] Comment on above: Result Comment: NOTE : PATIENT RESULTS ARE NOT CORRECTED FOR TEMPERATURE. Performed By: #### A FPA4 ####[place] [id number] PCO2 41 mmHg Normal 38 - 42 [facility] Comment on above: Performed By: #### A FPA4 ####[address] [address] pH (Bld) 7.32 [pH] Low 7.38 - 7.42 [facility] Comment on above: Performed By: #### A FPA4 ####[place] [address] Potassium [Moles/Vol] 4.1 mmol/L Normal 3.5 - 5.3 [facility] Comment on above: Performed By: #### A FPA4 ####[place] [address] SO2 97 % Normal 94 - 100 [facility] Comment on above: Performed By: #### A FPA4 ####[place] [id number] Sodium [Moles/Vol] 132 mmol/L Low 136 - 145 [facility] Comment on above: Performed By: #### A FPA4 ####[address] [address] BASIC METABOLIC PANELon 05- Anion gap [Moles/Vol] 10 mmol/L Normal 10 - 20 [facility] Comment on above: Performed By: #### B MP ####[address] [address] Calcium [Mass/Vol] 8.7 mg/dL Normal 8.6 - 10.3 [facility] Comment on above: Performed By: #### B MP ####[place] [id number] Chloride [Moles/Vol] 104 mmol/L Normal 98 - 107 [facility] Comment on above: Performed By: #### B MP ####[address] [address] Creatinine [Mass/Vol] 1.63 mg/dL High 0.50 - 1.05 [facility] Comment on above: Performed By: #### B MP ####[address] [address] GFR/1.73 sq M.predicted among non-blacks MDRD (S/P/Bld) [Vol rate/Area] 39 mL/min/{1.73_m2} Abnormal >90 [facility] Comment on above: Result Comment: CALC ULATIONS OF ESTIMATED GFR ARE PERFORMED USING THE 2020 CKD-EPI STUDY REFIT EQUATION WITHOUT THE RACE VARIABLE FOR THE IDMS-TRACEABLE CREATININE METHODS.https://jasn.asnjournals.org/content//ASN .2938602575 Performed By: #### B MP ####[address] [address] Glucose [Mass/Vol] 171 mg/dL High 74 - 99 [facility] Comment on above: Performed By: #### B MP ####[address] [address] HCO3 (Bld) [Moles/Vol] 25 mmol/L Normal 21 - 32 [facility] Comment on above: Performed By: #### B MP ####[address] [address] Potassium [Moles/Vol] 4.0 mmol/L Normal 3.5 - 5.3 [facility] Comment on above: Performed By: #### B MP ####[address] [address] Sodium [Moles/Vol] 135 mmol/L Low 136 - 145 [facility] Comment on above: Performed By: #### B MP ####[address] [address] Urea nitrogen [Mass/Vol] 37 mg/dL High 6 - 23 [facility] Comment on above: Performed By: #### B MP ####[address] [address] BETA-HYDROXYBUTYRATEon 01-19 BETA-HYDROXYBUTYRATE <0.01 Low 0.02 - 0.27 [facility] Comment on above: Result Comment: The beta-hydroxybutyrate test performance characteristics have been validated by [facility] laboratory. This test has not been approved by the FDA; however, such approval is not necessary. Performed By: #### B HB2 ####[address] [address] BLOOD CULTURE, BACTERIALon 0 01-19-2023 BLOOD CULTURE, BACTERIAL Normal [facility] Comment on above: Performed By: #### B LDC ####[id number] [place] [address] BLOOD CULTURE, BACTERIAL Normal [facility] Comment on above: Performed By: #### B LD ####[id number] [place] [address] CBC AND DIFFERENTIALon 01-19 % AUTOMATED IMMATURE GRAN 0.3 % Normal 0.0 - 0.9 [facility] Comment on above: Result Comment: Alla ture Granulocyte Count (IG) includes promyelocytes, myelocytes and metamyelocytes but does not include bands. Percent differential counts (%) should be interpreted in the context of the absolute cell counts (cells/L). Performed By: #### C BCDF ####[address] [address] Basophils (Bld) [#/Vol] 0.05 10*3/uL Normal 0.00 - 0.10 [facility] Comment on above: Performed By: #### C BCDF ####[address] [address] Basophils/100 WBC (Bld) 0.5 % Normal 0.0 - 2.0 [facility] Comment on above: Performed By: #### C BCDF ####[address] [address] Eosinophils (Bld) [#/Vol] 0.21 10*3/uL Normal 0.00 - 0.70 [facility] Comment on above: Performed By: #### C BCDF ####[address] [address] Eosinophils/100 WBC (Bld) 2.0 % Normal 0.0 - 6.0 [facility] Comment on above: Performed By: #### C BCDF ####[address] [address] Erythrocyte distribution width (RBC) [Ratio] 14.5 % Normal 11.5 - 14.5 [facility] Comment on above: Performed By: #### C BCDF ####[address] [address] Hematocrit (Bld) [Volume fraction] 36.2 % Normal 36.0 - 46.0 [facility] Comment on above: Performed By: #### C BCDF ####[address] [address] Hemoglobin (Bld) [Mass/Vol] 11.6 g/dL Low 12.0 - 16.0 [facility] Comment on above: Performed By: #### C BCDF ####[address] [address] Lymphocytes (Bld) [#/Vol] 1.93 10*3/uL Normal 1.20 - 4.80 [facility] Comment on above: Performed By: #### C BCDF ####[address] [address] Lymphocytes/100 WBC (Bld) 18.4 % Normal 13.0 - 44.0 [facility] Comment on above: Performed By: #### C BCDF ####[address] [address] MCHC (RBC) [Mass/Vol] 32.0 g/dL Normal 32.0 - 36.0 [facility] Comment on above: Performed By: #### C BCDF ####[address] [address] MCV (RBC) [Entitic vol] 90 fL Normal 80 - 100 [facility] Comment on above: Performed By: #### C BCDF ####[address] [address] Monocytes (Bld) [#/Vol] 0.96 10*3/uL Normal 0.10 - 1.00 [facility] Comment on above: Performed By: #### C BCDF ####[address] [address] Monocytes/100 WBC (Bld) 9.2 % Normal 2.0 - 10.0 [facility] Comment on above: Performed By: #### C BCDF ####[address] [address] Neutrophils (Bld) [#/Vol] 7.29 10*3/uL Normal 1.20 - 7.70 [facility] Comment on above: Result Comment: Perc ent differential counts (%) should be interpreted in the context of the absolute cell counts (cells/L). Performed By: #### C BCDF ####[address] [address] Neutrophils/100 WBC (Bld) 69.6 % Normal 40.0 - 80.0 [facility] Comment on above: Performed By: #### C BCDF ####[address] [address] Platelets (Bld) [#/Vol] 256 10*3/uL Normal 150 - 450 [facility] Comment on above: Performed By: #### C BCDF ####[address] [address] RBC 4.02 x10E12/L Normal 4.00 - 5.20 [facility] Comment on above: Performed By: #### C BCDF ####[address] [address] WBC (Bld) [#/Vol] 10.5 10*3/uL Normal 4.4 - 11.3 [facility] Comment on above: Performed By: #### C BCDF ####[address] [address] CHEST 1 VIEWon 01-19-2023 CHEST 1 VIEW Normal [facility] CT ABDOMEN AND PELVIS WO CON TRASTon 01-19-2023 CT ABDOMEN AND PELVIS WO CONTRAST Normal [facility] GLUCOSE-POCTon 01-19-2023 Glucose [Mass/Vol] 176 mg/dL High 74 - 99 [facility] Comment on above: Performed By: #### G MAURA ####[address] [address] HEPATIC FUNCTION PANELon Albumin [Mass/Vol] 3.5 g/dL Normal 3.4 - 5.0 [facility] Comment on above: Performed By: #### H EPFP ####[address] [address] ALP [Catalytic activity/Vol] 61 U/L Normal 33 - 110 [facility] Comment on above: Performed By: #### H EPFP ####[address] [address] ALT [Catalytic activity/Vol] 18 U/L Normal 7 - 45 [facility] Comment on above: Result Comment: Bridget ents treated with Sulfasalazine may generate falsely decreased results for ALT. Performed By: #### H EPFP ####[address] [address] AST [Catalytic activity/Vol] 15 U/L Normal 9 - 39 [facility] Comment on above: Performed By: #### H EPFP ####[address] [address] Bilirubin [Mass/Vol] 0.4 mg/dL Normal 0.0 - 1.2 [facility] Comment on above: Performed By: #### H EPFP ####[address] [address] Bilirubin.indirect [Mass/Vol] 0.1 mg/dL Normal 0.0 - 0.3 [facility] Comment on above: Performed By: #### H EPFP ####[address] [address] Protein [Mass/Vol] 6.5 g/dL Normal 6.4 - 8.2 [facility] Comment on above: Performed By: #### H EPFP ####[address] [address] LACTATEon 01-19-2023 Lactate [Moles/Vol] 1.2 mmol/L Normal 0.4 - 2.0 [facility] Comment on above: Result Comment: Paris puncture immediately after or during the administration of Metamizole may lead to falsely low results. Testing should be performed immediately prior to Metamizole dosing. Performed By: #### L ACT ####[address] [address] LIPASEon 01-19-2023 Lipase [Catalytic activity/Vol] 21 U/L Normal 9 - 82 [facility] Comment on above: Result Comment: Paris puncture immediately after or during the administration of Metamizole may lead to falsely low results. Testing should be performed immediately prior to Metamizole dosing. N-tnoxlv-t-benzoquinone imine (metabolite of Acetaminophen) will generate erroneously low results in samples for patients that have taken toxic doses of acetaminophen. Performed By: #### L IPAS ####[address] [address] PT/INRon 01-19-2023 PT Coag (PPP) [Time] 11.7 s Normal 9.8 - 13.4 [facility] Comment on above: Performed By: #### P TINR ####[address] [address] PT, INR 1.0 Normal 0.9 - 1.1 [facility] Comment on above: Performed By: #### P TINR ####[address] [address] Provider Note - ED v3on 01-05 Provider Note - ED v3 Normal [facility] TROPONIN I, HIGH SENSITIVITY on 01-19-2023 TROPONIN I, HIGH SENSITIVITY 3 ng/L Normal 0 - 13 [facility] Comment on above: Result Comment: .Les s [...] is performed using a differenttesting methodology [facility] than at [facility]. Direct result comparisons should onlybe made within the same method. Performed By: #### T [facility] ####[place] [address] Triage - EDon 01-19-2023 Triage - ED Normal [facility] UA MICROSCOPICon 01-19-2023 BACTERIA 3+ /HPF Abnormal [facility] Comment on above: Performed By: #### U AMIC ####[place] [address] BUDDING YEAST PRESENT Abnormal [facility] Comment on above: Performed By: #### U AMIC ####[place] [address] GRANULAR CAST 1+ /LPF Abnormal [facility] Comment on above: Performed By: #### U AMIC ####[place] [address] HYALINE CAST 3+ /LPF Abnormal [facility] Comment on above: Performed By: #### U AMIC ####[place] [address] Mucus Ql (Urine sed) 1+ /LPF Normal [facility] Comment on above: Performed By: #### U AMIC ####[place] [address] RBC 2 /HPF Normal 0-5 [facility] Comment on above: Performed By: #### U AMIC ####[place] [address] SQUAMOUS EPITH. CELLS 14 /HPF Normal [facility] Comment on above: Performed By: #### U AMIC ####[place] [address] WBC 19 /HPF Abnormal 0-5 [facility] Comment on above: Performed By: #### U AMIC ####[place] [address] URINALYSIS WITH CULTURE IF I NDICATEDon 01-19-2023 Appearance (U) HAZY Normal CLEAR [facility] Comment on above: Performed By: #### U ARFX ####[place] [address] Bilirubin Ql (U) Negative Normal NEGATIVE [facility] Comment on above: Performed By: #### U ARFX ####[place] [address] Color (U) Silke Normal STRAW,YELLO W [facility] Comment on above: Performed By: #### U ARFX ####[place] [address] Glucose Ql (U) >=500(3+) Abnormal NEGATIVE [facility] Comment on above: Performed By: #### U ARFX ####[place] [address] Hemoglobin Ql (U) Negative Normal NEGATIVE [facility] Comment on above: Performed By: #### U ARFX ####[place] [address] Ketones Ql (U) Negative Normal NEGATIVE [facility] Comment on above: Performed By: #### U ARFX ####[place] [address] Leukocyte esterase Test strip Ql (U) SMALL(1+) Abnormal NEGATIVE [facility] Comment on above: Performed By: #### U ARFX ####[place] [address] Nitrite Ql (U) Negative Normal NEGATIVE [facility] Comment on above: Performed By: #### U ARFX ####[place] [address] pH (U) 5.0 [pH] Normal 5.0 - 8.0 [facility] Comment on above: Performed By: #### U ARFX ####[address] [address] Protein Ql (U) Negative Normal NEGATIVE [facility] Comment on above: Performed By: #### U ARFX ####[address] [address] Specific gravity (U) [Rel density] 1.020 Normal 1.005 - 1.035 [facility] Comment on above: Performed By: #### U ARFX ####[address] [address] Urobilinogen (U) [Mass/Vol] mg/dL Normal 0.0 - 1.9 [facility] Comment on above: Performed By: #### U ARFX ####[address] [address] URINE CULTURE,BACTERIALon URINE CULTURE,BACTERIAL Normal [facility] Comment on above: Performed By: #### U RINC ####[id number] [place] [address] CHEMISTRYOrdered By: SYSTEM SYSTEM on 01-13-2023 Albumin [Mass/Vol] 3.7 g/dL Normal 3.3 - 5.0 gm/dL FT Remisol Albumin/Globulin [Mass ratio] 1.1 {ratio} Normal [...] Remisol Triglyceride [Mass/Vol] 229 mg/dL High <=149mg/dL [facility] Rem[facility] Urea nitrogen [Mass/Vol] 30 mg/dL High 5 - 21 mg/dL [facility] Remisol Urea nitrogen/Creatinine [Mass ratio] 25 mg/mg High 10 - 20 [facility] Remisol CHEMISTRYOrdered By: Odalys Galeano on 01-13-2023 Albumin DL <= 20 mg/L (U) [Mass/Vol] 9.5 microgram/mL Normal 0.0 - 19.0 mcg/mL [facility] Remisol Albumin Elph (U) [Mass fraction] mg/dL Invalid Interpretation Code [facility] Remisol Microalb/Cr Ratio 15.3 mg/gm Cr Normal 0.0 - 30. 0 mg/gm Cr [facility] Remisol U Prot/Creat Ratio [facility] Invalid Interpretation Code 0.00 - 200.00 [facility] Remisol CHEMISTRYOrdered By: Ami Plata on 01-13-2023 U Osmolality 682 mOsm/kg Normal 50 - 1400 mOsm/kg [facility] Man UA SS HEMATOLOGYOrdered By: SYSTEM SYSTEM on 01-13-2023 Basophils/100 [...] 3.2 E9/L Normal 2.0 - 7.5 E9/L [facility] HemeAutoSS HEMATOLOGYOrdered By: Debbie Dominguez on 01-13-2023 Erythrocyte distribution width (RBC) [Ratio] 15.4 % High 10.9 - 14.2 % [facility] HemeAutoSS Hematocrit (Bld) [Volume fraction] 38.4 % Normal 34.0 - 46.0 % [facility] HemeAutoSS Hemoglobin (Bld) [Mass/Vol] 12.3 g/dL Normal 12.0 - 16.0 gm/dL [facility] HemeAutoSS MCH (RBC) [Entitic mass] 28.5 pg Normal 27.0 - 34.0 pg [facility] HemeAutoSS MCHC (RBC) [Mass/Vol] 31.9 g/dL Normal 31.4 - 36.0 gm/dL [facility] HemeAutoSS MCV (RBC) [Entitic vol] 89.3 fL Normal 80.0 - 100.0 fL [facility] HemeAutoSS Platelet mean volume (Bld) [Entitic vol] 8.4 fL Normal 6.4 - 10.8 fL [facility] HemeAutoSS Platelets (Bld) [#/Vol] 311.0 E9/L Normal 150.0 - 500.0 E9/L [facility] HemeAutoSS RBC (Bld) [#/Vol] 4.3 E12/L Normal 4.3 - 5.9 E12/L [facility] HemeAutoSS WBC corrected for nucl RBC Auto (Bld) [#/Vol] 7.0 E9/L Normal 4.0 - 11.0 E9/L [facility] HemeAutoSS Laboratory - Chemistry and C hemistry - challengeOrdered By: Zena Galeano on 01-13-2023 Creatinine (U) [Mass/Vol] 62.0 mg/dL Invalid Interpretation Code [facility] Remisol URINALYSISOrdered By: Ami Plata on 01-13-2023 Bilirubin [...] AM) Normal Negative [facility] UA Auto SS Patriot.plasma/Lithi um.RBC (Bld) [Mass ratio] 0-3 /HPF Normal [...] Desc Clean Catch (01/13/23 10:06 AM) Normal [facility] UA Auto SS Urobilinogen Qn (U) 0.2990262 {Jesus'U}/dL Normal 0.0 - 1.0 EU/dL [facility] UA Auto SS WBC Auto Ql (U) Negative (01/13/23 10:06 AM) Normal Negative [facility] UA Auto SS WBC LM.HPF (Urine sed) [#/Area] 0-5 /HPF Normal 0-5/HPF FT UA Auto SS Cult, Urineon 12-08-2022 Bacteria identified Cx Nom (U) [facility]Ttlm[facility] [place] Work Phone: Office Visit (Urology)on Follow-up visit Diagnoses/Problems Assessed Diabetes (250.00) (E11.9) History of Adenoidectomy History of Carpal tunnel surgery History of Hysterectomy Family history of hypertension (V17.49) (Z82.49) : Mother Former tobacco use (V15.82) (Z87.891) Dysuria (788.1) (R30.0) Right flank pain (789.09) (R10.9) Orders Dysuria Cult, Urine; Status:Active - Retrospective Authorization; Requested for:08Dec2022; Perform:Lab Services - Lab To Draw (Non-Blood Test); Due:[id number]; Last Updated By:Jacqueline Mena; 12/08/2022 2:09:24 PM;Ordered; For:Dysuria; Ordered By:Christina Ramos; Right flank pain CT Abdomen and Pelvis without Contrast; Status:Hold For - Scheduling,Retrospective Authorization; Requested for:08Dec2022; Perform: Radiology Services Imaging; Due:[id number]; Last Updated By:Jacqueline Mena; 12/08/2022 2:16:26 PM;Ordered; For:Right flank pain; Ordered By:Christina Ramos; Patient taking Metformin or Derivatives? : Yes Radiologist to Determine Optimal Study : Y What are the patient's signs and symptoms? : right flank pain Follow-up visit in 2 weeks Outpatient Follow-up after ct stone study Status: Hold For - Scheduling,Retrospective Authorization Requested for: [id number] Ordered Stat;For: Right flank pain; Ordered By: Christina Ramos Performed: Due: [id number]; Last Updated By: Jacqueline Mena; 12/08/2022 2:16:56 [...] week By signing my name below, I, Baylee Aburto, attest that this documentation has been prepared [...] CULTURE,BACTERIALon URINE CULTURE,BACTERIAL PATIENT: JADA GRANADOS LOCATION: [address]#: [id number] : 76 AGE: SEX: F ORDERED BY: CHRISTINA RAMOS SOURCE: URINE COLLECTED: 12/08/22 14:09 ANTIBIOTICS AT ABDON.: RECEIVED : 12/09/22 00:43 SITE: Clean Catch/Voided R E S U L T S URINE CULTURE,BACTERIAL FINAL 12/10/22 09:14 NO GROWTH Normal [facility] Comment on above: Performed By: #### U RINC #### [facility] [address] [place] [address] CBCon 12-06-2022 Erythrocyte distribution width (RBC) [Ratio] 13.5 % Normal 11.5 - 14.5 [facility] Comment on above: Performed By: #### C BC ####[address] [address] Hematocrit (Bld) [Volume fraction] 31.2 % Low 36.0 - 46.0 [facility] Comment on above: Performed By: #### C BC ####[address] [address] Hemoglobin (Bld) [Mass/Vol] 10.2 g/dL Low 12.0 - 16.0 [facility] Comment on above: Performed By: #### C BC ####[address] [address] MCHC (RBC) [Mass/Vol] 32.7 g/dL Normal 32.0 - 36.0 [facility] Comment on above: Performed By: #### C BC ####[address] [address] MCV (RBC) [Entitic vol] 89 fL Normal 80 - 100 [facility] Comment on above: Performed By: #### C BC ####[address] [address] Platelets (Bld) [#/Vol] 294 10*3/uL Normal 150 - 450 [facility] Comment on above: Performed By: #### C BC ####[address] [address] RBC 3.49 x10E12/L Low 4.00 - 5.20 [facility] Comment on above: Performed By: #### C BC ####[place] [id number] WBC (Bld) [#/Vol] 4.0 10*3/uL Low 4.4 - 11.3 [facility] Comment on above: Performed By: #### C BC ####[place] [id number] COMPREHENSIVE PANELon 2022 Albumin [Mass/Vol] 2.8 g/dL Low 3.4 - 5.0 [facility] Comment on above: Performed By: #### C MP ####[address] [address] ALP [Catalytic activity/Vol] 62 U/L Normal 33 - 110 [facility] Comment on above: Performed By: #### C MP ####[address] [address] ALT [Catalytic activity/Vol] 13 U/L Normal 7 - 45 [facility] Comment on above: Result Comment: Bridget ents treated with Sulfasalazine may generate falsely decreased results for ALT. Performed By: #### C MP ####[address] [address] Anion gap [Moles/Vol] 8 mmol/L Low 10 - 20 [facility] Comment on above: Performed By: #### C MP ####[address] [address] AST [Catalytic activity/Vol] 12 U/L Normal 9 - 39 [facility] Comment on above: Performed By: #### C MP ####[address] [address] Bilirubin [Mass/Vol] 0.3 mg/dL Normal 0.0 - 1.2 [facility] Comment on above: Performed By: #### C MP ####[address] [address] Calcium [Mass/Vol] 8.2 mg/dL Low 8.6 - 10.3 [facility] Comment on above: Performed By: #### C MP ####[address] [address] Chloride [Moles/Vol] 100 mmol/L Normal 98 - 107 [facility] Comment on above: Performed By: #### C MP ####[address] [address] Creatinine [Mass/Vol] 0.92 mg/dL Normal 0.50 - 1.05 [facility] Comment on above: Performed By: #### C MP ####[address] [address] GFR/1.73 sq M.predicted among non-blacks MDRD (S/P/Bld) [Vol rate/Area] 78 mL/min/{1.73_m2} Normal >90 [facility] Comment on above: Result Comment: CALC ULATIONS OF ESTIMATED GFR ARE PERFORMED USING THE 2020 CKD-EPI STUDY REFIT EQUATION WITHOUT THE RACE VARIABLE FOR THE IDMS-TRACEABLE CREATININE METHODS.https://jasn.asnjournals.org/content//ASN .7661915025 Performed By: #### C MP ####[address] [address] Glucose [Mass/Vol] 201 mg/dL High 74 - 99 [facility] Comment on above: Performed By: #### C MP ####[address] [address] HCO3 (Bld) [Moles/Vol] 33 mmol/L High 21 - 32 [facility] Comment on above: Performed By: #### C MP ####[address] [address] Potassium [Moles/Vol] 4.1 mmol/L Normal 3.5 - 5.3 [facility] Comment on above: Performed By: #### C MP ####[place] [place] [address] Protein [Mass/Vol] 5.7 g/dL Low 6.4 - 8.2 [facility] Comment on above: Performed By: #### C MP ####[address] [address] Sodium [Moles/Vol] 137 mmol/L Normal 136 - 145 [facility] Comment on above: Performed By: #### C MP ####[address] [address] Urea nitrogen [Mass/Vol] 11 mg/dL Normal 6 - 23 [facility] Comment on above: Performed By: #### C MP ####[address] [address] Discharge [id number] Discharge Profile2 Normal [facility] GLUCOSE-[facility] 12-06-2022 Glucose [Mass/Vol] 83 mg/dL Normal 74 - 99 [facility] Comment on above: Performed By: #### G MAURA ####[address] [address] [place] [address] Glucose [Mass/Vol] 182 mg/dL High 74 - 99 [facility] Comment on above: Performed By: #### G MAURA ####[address] [address] Glucose [Mass/Vol] 187 mg/dL High 74 - 99 [facility] Comment on above: Performed By: #### G MAURA ####[address] [place] [address] Glucose [Mass/Vol] 83 mg/dL Normal 74 - 99 [facility] Comment on above: Performed By: #### G MAURA ####[place] [address] [place] [address] Glucose [Mass/Vol] 54 mg/dL Low 74 - 99 [facility] Comment on above: Result Comment: RN/M D NOTIFIED Performed By: #### G MAURA ####[place] [address] [place] [id number] Laboratory - Chemistry and C hemistry - challengeon 12-06-2022 Glucose [Mass/Vol] 83 mg/dL 74 - 99 MP-Uro logy[facility]Ra [place] Work Phone: Glucose [Mass/Vol] 182 mg/dL above high threshold 74 - 99 SC[facility]Qoqnary[facility] [place] Work Phone: [phone] Glucose [Mass/Vol] 187 mg/dL above high threshold 74 - 99 KG[facility]Axcssta[facility]n [place] Work Phone: [phone] Albumin BCP dye [Mass/Vol] 2.8 g/dL below low threshold 3.4 - 5.0 ZV-Dpziryi-Pl venna Work Phone: ALP [Catalytic activity/Vol] 62 U/L 33 - 110 KV-Inyzejd-Ku venna Work Phone: ALT With P-5'-P [Catalytic activity/Vol] 13 U/L 7 - 45 RN-Ekydlzz-Fa venna Work Phone: Comment on above: Patients treated wit h Sulfasalazine may generate falsely decreased results for ALT. Anion gap [Moles/Vol] 8 mmol/L below low threshold 10 - 20 RB-Qujvkfp-Cn ven[place] Work Phone: AST With P-5'-P [Catalytic activity/Vol] 12 U/L 9 - 39 BD-Ajedbyi-Tz ven[place] Work Phone: Bilirubin [Mass/Vol] 0.3 mg/dL 0.0 - 1.2 MP-U rology-Ra ven[place] Work Phone: Calcium [Mass/Vol] 8.2 mg/dL below low threshold 8.6 - 10.3 SG-Yrsawyo-Yo ven[place] Work Phone: Chloride [Moles/Vol] 100 mmol/L 98 - 107 MP-U rology-Ra [place] Work Phone: CO2 [Moles/Vol] 33 mmol/L above high threshold 21 - 32 DV-Bnhzmpy-Uw ven[place] Work Phone: Creatinine [Mass/Vol] 0.92 mg/dL See Below WS-Edcewaf-Vj sohan Work Phone: Comment on above: Reference Range: 0.5 0 - 1.05 Glucose [Mass/Vol] 201 mg/dL above high threshold 74 - 99 CT-Lupjioy-Ps sohan Work Phone: Potassium [Moles/Vol] 4.1 mmol/L 3.5 - 5.3 CW-Pgmqgqn-My sohan Work Phone: Protein [Mass/Vol] 5.7 g/dL below low threshold 6.4 - 8.2 RZ-Vczqxpy-Tv sohan Work Phone: Sodium [Moles/Vol] 137 mmol/L 136 - 145 MP-Uro logy-Ra sohan Work Phone: Urea nitrogen [Mass/Vol] 11 mg/dL 6 - 23 MH-Oskpcdu-Lh sohan Work Phone: Glucose [Mass/Vol] 83 mg/dL 74 - 99 MP-Uro logy-Ra parry Work Phone: Glucose [Mass/Vol] 54 mg/dL below low threshold 74 - 99 WB-Ugbqtcd-Sm sohan Work Phone: Comment on above: RN/MD NOTIFIED Laboratory - Hematology and Cell countson 12-06-2022 Erythrocyte distribution width (RBC) [Ratio] 13.5 % See Below DK-Rnvfvoa-Yo sohan Work Phone: Comment on above: Reference Range: 11. 5 - 14.5 Hematocrit (Bld) [Volume fraction] 31.2 % below low threshold See Below AP-Ebhpdcf-Rz sohan Work Phone: Comment on above: Reference Range: 36. 0 - 46.0 Hemoglobin (Bld) [Mass/Vol] 10.2 g/dL below low threshold See Below OB-Cubnmzk-Tp denisa Work Phone: Comment on above: Reference Range: 12. 0 - 16.0 MCHC (RBC) [Mass/Vol] 32.7 g/dL See Below QC-Qorfbkz-Uu ven[place] Work Phone: Comment on above: Reference Range: 32. 0 - 36.0 MCV (RBC) [Entitic vol] 89 fL 80 - 100 FR-Zijpzhn-Tv ven[place] Work Phone: Platelets (Bld) [#/Vol] 294 10*3/uL 150 - 450 JU-Lxuacfu-Sg denisa Work Phone: RBC (Bld) [#/Vol] 3.49 {x10E12/L} below low threshold See Below YE-Laaucnn-Ph ven[place] Work Phone: Comment on above: Reference Range: 4.0 0 - 5.20 WBC (Bld) [#/Vol] 4.0 10*3/uL below low threshold 4.4 - 11.3 OM-Loqblzv-Lz denisa Work Phone: No Panel Informationon 12-06 78 {mL/min/1.73m2} >90 MP-Uro logy-Ra denisa Work Phone: Comment on above: CALCULATIONS OF SACHIN MATED GFR ARE PERFORMED USING THE 2020 CKD-EPI STUDY REFIT EQUATION WITHOUT THE RACE VARIABLE FOR THE IDMS-TRACEABLE CREATININE METHODS.https://jasn.asnjournals.org/content//ASN .5037811055 Order Reconciliationon 12-06 Order Reconciliation Normal [facility] Rehab Note-individual therap yon 12-06-2022 Rehab Note-individual therapy Normal [facility] CBC AND DIFFERENTIALon 12-05 % AUTOMATED IMMATURE GRAN 0.2 % Normal 0.0 - 0.9 [facility] Comment on above: Result Comment: Alla ture Granulocyte Count (IG) includes promyelocytes, myelocytes and metamyelocytes but does not include bands. Percent differential counts (%) should be interpreted in the context of the absolute cell counts (cells/L). Performed By: #### C BC ####[address] [address] Basophils (Bld) [#/Vol] 0.02 10*3/uL Normal 0.00 - 0.10 [facility] Comment on above: Performed By: #### C BCDF ####[address] [address] Basophils/100 WBC (Bld) 0.5 % Normal 0.0 - 2.0 [facility] Comment on above: Performed By: #### C BCDF ####[address] [address] Eosinophils (Bld) [#/Vol] 0.08 10*3/uL Normal 0.00 - 0.70 [facility] Comment on above: Performed By: #### C BCDF ####[address] [address] Eosinophils/100 WBC (Bld) 1.9 % Normal 0.0 - 6.0 [facility] Comment on above: Performed By: #### C BCDF ####[address] [address] Erythrocyte distribution width (RBC) [Ratio] 13.6 % Normal 11.5 - 14.5 [facility] Comment on above: Performed By: #### C BCDF ####[address] [address] Hematocrit (Bld) [Volume fraction] 28.3 % Low 36.0 - 46.0 [facility] Comment on above: Performed By: #### C BCDF ####[address] [address] Hemoglobin (Bld) [Mass/Vol] 8.9 g/dL Low 12.0 - 16.0 [facility] Comment on above: Performed By: #### C BCDF ####[address] [address] Lymphocytes (Bld) [#/Vol] 2.14 10*3/uL Normal 1.20 - 4.80 [facility] Comment on above: Performed By: #### C BCDF ####[address] [address] Lymphocytes/100 WBC (Bld) 49.5 % Normal 13.0 - 44.0 [facility] Comment on above: Performed By: #### C BCDF ####[address] [address] MCHC (RBC) [Mass/Vol] 31.4 g/dL Low 32.0 - 36.0 [facility] Comment on above: Performed By: #### C BCDF ####[address] [address] MCV (RBC) [Entitic vol] 90 fL Normal 80 - 100 [facility] Comment on above: Performed By: #### C BCDF ####[address] [address] Monocytes (Bld) [#/Vol] 0.38 10*3/uL Normal 0.10 - 1.00 [facility] Comment on above: Performed By: #### C BCDF ####[address] [address] Monocytes/100 WBC (Bld) 8.8 % Normal 2.0 - 10.0 [facility] Comment on above: Performed By: #### C BCDF ####[address] [address] Neutrophils (Bld) [#/Vol] 1.69 10*3/uL Normal 1.20 - 7.70 [facility] Comment on above: Result Comment: Perc ent differential counts (%) should be interpreted in the context of the absolute cell counts (cells/L). Performed By: #### C BCDF ####[address] [address] Neutrophils/100 WBC (Bld) 39.1 % Normal 40.0 - 80.0 [facility] Comment on above: Performed By: #### C BCDF ####[address] [address] Platelets (Bld) [#/Vol] 253 10*3/uL Normal 150 - 450 [facility] Comment on above: Performed By: #### C BCDF ####[address] [address] RBC 3.13 x10E12/L Low 4.00 - 5.20 [facility] Comment on above: Performed By: #### C BCDF ####[address] [address] WBC (Bld) [#/Vol] 4.3 10*3/uL Low 4.4 - 11.3 [facility] Comment on above: Performed By: #### C BCDF ####[address] [address] COMPREHENSIVE PANELon 2022 Albumin [Mass/Vol] 2.8 g/dL Low 3.4 - 5.0 [facility] Comment on above: Performed By: #### C MP ####[address] [address] ALP [Catalytic activity/Vol] 63 U/L Normal 33 - 110 [facility] Comment on above: Performed By: #### C MP ####[address] [address] ALT [Catalytic activity/Vol] 12 U/L Normal 7 - 45 [facility] Comment on above: Result Comment: Bridget ents treated with Sulfasalazine may generate falsely decreased results for ALT. Performed By: #### C MP ####[address] [address] Anion gap [Moles/Vol] 8 mmol/L Low 10 - 20 [facility] Comment on above: Performed By: #### C MP ####[address] [address] AST [Catalytic activity/Vol] 9 U/L Normal 9 - 39 [facility] Comment on above: Performed By: #### C MP ####[address] [address] Bilirubin [Mass/Vol] 0.3 mg/dL Normal 0.0 - 1.2 [facility] Comment on above: Performed By: #### C MP ####[address] [address] Calcium [Mass/Vol] 8.1 mg/dL Low 8.6 - 10.3 [facility] Comment on above: Performed By: #### C MP ####[address] [address] Chloride [Moles/Vol] 104 mmol/L Normal 98 - 107 [facility] Comment on above: Performed By: #### C MP ####[address] [address] Creatinine [Mass/Vol] 1.05 mg/dL Normal 0.50 - 1.05 [facility] Comment on above: Performed By: #### C MP ####[address] [address] GFR/1.73 sq M.predicted among non-blacks MDRD (S/P/Bld) [Vol rate/Area] 67 mL/min/{1.73_m2} Normal >90 [facility] Comment on above: Result Comment: CALC ULATIONS OF ESTIMATED GFR ARE PERFORMED USING THE 2020 CKD-EPI STUDY REFIT EQUATION WITHOUT THE RACE VARIABLE FOR THE IDMS-TRACEABLE CREATININE METHODS.https://jasn.asnjournals.org/content//ASN .6569900161 Performed By: #### C MP ####[address] [address] Glucose [Mass/Vol] 175 mg/dL High 74 - 99 [facility] Comment on above: Performed By: #### C MP ####[address] [address] HCO3 (Bld) [Moles/Vol] 30 mmol/L Normal 21 - 32 [facility] Comment on above: Performed By: #### C MP ####[address] [address] Potassium [Moles/Vol] 3.6 mmol/L Normal 3.5 - 5.3 [facility] Comment on above: Performed By: #### C MP ####[address] [address] Protein [Mass/Vol] 5.5 g/dL Low 6.4 - 8.2 [facility] Comment on above: Performed By: #### C MP ####[address] [address] Sodium [Moles/Vol] 138 mmol/L Normal 136 - 145 [facility] Comment on above: Performed By: #### C MP ####[address] [address] Urea nitrogen [Mass/Vol] 11 mg/dL Normal 6 - 23 [facility] Comment on above: Performed By: #### C MP ####[address] [address] Complete Blood Count + Diffe rentialon 12-05-2022 Basophils/100 WBC (Bld) 0.5 % 0.0 - 2.0 YN-Njcfpkr-Bp denisa Work Phone: Erythrocyte distribution width (RBC) [Ratio] 13.6 % See Below FX-Cqhlemo-Ct venna Work Phone: Comment on above: Reference Range: 11. 5 - 14.5 Hematocrit (Bld) [Volume fraction] 28.3 % below low threshold See Below PH-Kpefofs-Ou venna Work Phone: Comment on above: Reference Range: 36. 0 - 46.0 Hemoglobin (Bld) [Mass/Vol] 8.9 g/dL below low threshold See Below RF-Cldhvbm-Kc venna Work Phone: Comment on above: Reference Range: 12. 0 - 16.0 Lymphocytes/100 WBC (Bld) 49.5 % See Below PF-Bbpjclb-Tn venna Work Phone: Comment on above: Reference Range: 13. 0 - 44.0 MCHC (RBC) [Mass/Vol] 31.4 g/dL below low threshold See Below DK-Gunandt-Jz venna Work Phone: Comment on above: Reference Range: 32. 0 - 36.0 MCV (RBC) [Entitic vol] 90 fL 80 - 100 KO-Xejkquh-Hy venna Work Phone: Monocytes/100 WBC (Bld) 8.8 % 2.0 - 10.0 CJ-Bgzvvpo-Yy venna Work Phone: Neutrophils/100 WBC (Bld) 39.1 % See Below IC-Ehnhujq-Cg venna Work Phone: Comment on above: Reference Range: 40. 0 - 80.0 Platelets (Bld) [#/Vol] 253 10*3/uL 150 - 450 EL-Ishebdt-Ec venna Work Phone: RBC (Bld) [#/Vol] 3.13 {x10E12/L} below low threshold See Below SE-Xxqjgtk-Hd venna Work Phone: Comment on above: Reference Range: 4.0 0 - 5.20 WBC (Bld) [#/Vol] 4.3 10*3/uL below low threshold 4.4 - 11.3 XN-Fsnfleg-Hq venna Work Phone: Complete Blood Count + Differential 0.02 {x10E9/L} See Below SF-Nhhlagw-It venna Work Phone: Comment on above: Reference Range: 0.0 0 - 0.10 Complete Blood Count + Differential 0.08 {x10E9/L} See Below RL-Zldaekn-Zp venna Work Phone: Comment on above: Reference Range: 0.0 0 - 0.70 Complete Blood Count + Differential 0.38 {x10E9/L} See Below TP-Mgebmac-Ca venna Work Phone: Comment on above: Reference Range: 0.1 0 - 1.00 Complete Blood Count + Differential 2.14 {x10E9/L} See Below TY-Vzwubzy-Pa venna Work Phone: Comment on above: Reference Range: 1.2 0 - 4.80 Complete Blood Count + Differential 1.69 {x10E9/L} See Below HP-Tuzezzd-Nw venna Work Phone: Comment on above: Reference Range: 1.2 0 - 7.70 Percent differential counts (%) should be interpreted in the context of the absolute cell counts (cells/L). Complete Blood Count + Differential 1.9 % 0.0 - 6.0 MG-Ngdumxt-Se denis Work Phone: Complete Blood Count + Differential 0.2 % 0.0 - 0.9 [facility] denis Work Phone: Comment on above: Immature Granulocyte Count (IG) includes promyelocytes, myelocytes and metamyelocytes but does not include bands. Percent differential counts (%) should be interpreted in the context of the absolute cell counts (cells/L). Daily Progress Note-General Internal Medicineon 12-05-2022 Daily Progress Note-General Internal Medicine Normal [facility] Daily Progress Note-Urologyo n 12-05-2022 Daily Progress Note-Urology Normal [facility] GLUCOSE-POCTon 12-05-2022 Glucose [Mass/Vol] 268 mg/dL High 74 - 99 [facility] Comment on above: Performed By: #### G MAURA ####[address] [address] Glucose [Mass/Vol] 136 mg/dL High 74 - 99 [facility] Comment on above: Result Comment: RN/Evangelista Parra NOTIFIED Performed By: #### G MAURA ####[address] [address] Glucose [Mass/Vol] 135 mg/dL High 74 - [address] [place] [address] Comment on above: Result Comment: RN/Evangelista D NOTIFIED Performed By: #### G MAURA ####[address] [address] Glucose [Mass/Vol] 124 mg/dL High 74 - 99 [facility] Comment on above: Result Comment: RN/Evangelista Parra NOTIFIED Performed By: #### G MAURA ####[address] [address] Laboratory - Chemistry and C hemistry - challengeon 12-05-2022 Glucose [Mass/Vol] 268 mg/dL above high threshold 74 - 99 [facility] Inaika Work Phone: Glucose [Mass/Vol] 136 mg/dL above high threshold 74 - 99 KZ-Xsuuann-Qs denis Work Phone: Comment on above: RN/MD NOTIFIED Glucose [Mass/Vol] 135 mg/dL above high threshold 74 - 99 CW-Kbxrzln-Hj denis Work Phone: Comment on above: RN/MD NOTIFIED Glucose [Mass/Vol] 124 mg/dL above high threshold 74 - 99 OI-Stghhme-Nk denis Work Phone: Comment on above: RN/MD NOTIFIED Albumin BCP dye [Mass/Vol] 2.8 g/dL below low threshold 3.4 - 5.0 KW-Fqjxtcw-Th denis Work Phone: ALP [Catalytic activity/Vol] 63 U/L 33 - 110 ON-Mufoekq-Ir denis Work Phone: ALT With P-5'-P [Catalytic activity/Vol] 12 U/L 7 - 45 [facility] denis Work Phone: Comment on above: Patients treated wit h Sulfasalazine may generate falsely decreased results for ALT. Anion gap [Moles/Vol] 8 mmol/L below low threshold 10 - 20 SS-Thwnitu-Es denis Work Phone: AST With P-5'-P [Catalytic activity/Vol] 9 U/L 9 - 39 [facility] sohan Work Phone: Bilirubin [Mass/Vol] 0.3 mg/dL 0.0 - 1.2 MP-U [facility]- denis Work Phone: Calcium [Mass/Vol] 8.1 mg/dL below low threshold 8.6 - 10.3 UT-Ufhlvet-Qa denis Work Phone: Chloride [Moles/Vol] 104 mmol/L 98 - [address] [facility] [facility] Work Phone: CO2 [Moles/Vol] 30 mmol/L 21 - 32 MP-Urolog y- denis Work Phone: Creatinine [Mass/Vol] 1.05 mg/dL See Below JQ-Yuutret-Jc sohan Work Phone: Comment on above: Reference Range: 0.5 0 - 1.05 Glucose [Mass/Vol] 175 mg/dL above high threshold 74 - 99 DT-Yrvouvy-Za sohan Work Phone: Potassium [Moles/Vol] 3.6 mmol/L 3.5 - 5.3 ZC-Orpzgvm-Iy sohan Work Phone: Protein [Mass/Vol] 5.5 g/dL below low threshold 6.4 - 8.2 AS-Pdyhzgl-Nu [employer] Work Phone: Sodium [Moles/Vol] 138 mmol/L 136 - 145 -Uro logy-Ra parry Work Phone: Urea nitrogen [Mass/Vol] 11 mg/dL 6 - 23 NI-Mqhwhpw-Ls [employer] Work Phone: No Panel Informationon 12-05 67 {mL/min/1.73m2} >90 -Uro logy- [employer] Work Phone: Comment on above: CALCULATIONS OF SACHIN MATED GFR ARE PERFORMED USING THE 2020 CKD-EPI STUDY REFIT EQUATION WITHOUT THE RACE VARIABLE FOR THE IDMS-TRACEABLE CREATININE METHODS.https://jasn.asnjournals.org/content//ASN .8770530720 BASIC METABOLIC PANELon - Anion gap [Moles/Vol] 10 mmol/L Normal 10 - 20 [facility] Comment on above: Performed By: #### B MP ####[id number] [place] [address] Calcium [Mass/Vol] 8.5 mg/dL Low 8.6 - 10.3 [facility] Comment on above: Performed By: #### B MP ####[id number] [place] [address] Chloride [Moles/Vol] 103 mmol/L Normal 98 - 107 [facility] Comment on above: Performed By: #### B MP ####[address] [address] Creatinine [Mass/Vol] 1.09 mg/dL High 0.50 - 1.05 [facility] Comment on above: Performed By: #### B MP ####[address] [address] GFR/1.73 sq M.predicted among non-blacks MDRD (S/P/Bld) [Vol rate/Area] 64 mL/min/{1.73_m2} Normal >90 [facility] Comment on above: Result Comment: CALC ULATIONS OF ESTIMATED GFR ARE PERFORMED USING THE 2020 CKD-EPI STUDY REFIT EQUATION WITHOUT THE RACE VARIABLE FOR THE IDMS-TRACEABLE CREATININE METHODS.https://jasn.asnjournals.org/content/early//ASN .4744441650 Performed By: #### B MP ####[address] [address] Glucose [Mass/Vol] 320 mg/dL High 74 - 99 [facility] Comment on above: Performed By: #### B MP ####[address] [address] HCO3 (Bld) [Moles/Vol] 26 mmol/L Normal 21 - 32 [facility] Comment on above: Performed By: #### B MP ####[address] [address] Potassium [Moles/Vol] 4.2 mmol/L Normal 3.5 - 5.3 [facility] Comment on above: Performed By: #### B MP ####[address] [address] Sodium [Moles/Vol] 135 mmol/L Low 136 - 145 [facility] Comment on above: Performed By: #### B MP ####[address] [address] Urea nitrogen [Mass/Vol] 10 mg/dL Normal 6 - 23 [facility] Comment on above: Performed By: #### B MP ####[address] [address] CBCon 12-04-2022 Erythrocyte distribution width (RBC) [Ratio] 13.4 % Normal 11.5 - 14.5 [facility] Comment on above: Performed By: #### C BC ####[address] [address] Hematocrit (Bld) [Volume fraction] 29.6 % Low 36.0 - 46.0 [facility] Comment on above: Performed By: #### C BC ####[address] [address] Hemoglobin (Bld) [Mass/Vol] 9.5 g/dL Low 12.0 - 16.0 [facility] Comment on above: Performed By: #### C BC ####[address] [address] MCHC (RBC) [Mass/Vol] 32.1 g/dL Normal 32.0 - 36.0 [facility] Comment on above: Performed By: #### C BC ####[address] [address] MCV (RBC) [Entitic vol] 90 fL Normal 80 - 100 [facility] Comment on above: Performed By: #### C BC ####[address] [address] Platelets (Bld) [#/Vol] 229 10*3/uL Normal 150 - 450 [facility] Comment on above: Performed By: #### C BC ####[address] [address] RBC 3.29 x10E12/L Low 4.00 - 5.20 [facility] Comment on above: Performed By: #### C BC ####[address] [address] WBC (Bld) [#/Vol] 3.7 10*3/uL Low 4.4 - 11.3 [facility] Comment on above: Performed By: #### C BC ####[address] [address] Daily Progress Note-General Internal Medicineon 12-04-2022 Daily Progress Note-General Internal Medicine Normal [facility] Daily Progress Note-Nephrolo gyon 12-04-2022 Daily Progress Note-Nephrology Normal [facility] Daily Progress Note-Urologyo n 12-04-2022 Daily Progress Note-Urology Normal [facility] GLUCOSE-POCTon 12-04-2022 Glucose [Mass/Vol] 241 mg/dL High 74 - 99 [facility] Comment on above: Performed By: #### G MAURA ####[address] [address] Glucose [Mass/Vol] 160 mg/dL High 74 - 99 [facility] Comment on above: Performed By: #### G MAURA ####[address] [address] Glucose [Mass/Vol] 244 mg/dL High 74 - [address] [place] [address] Comment on above: Performed By: #### G MAURA ####[address] [address] Glucose [Mass/Vol] 267 mg/dL High 74 - [address] [place] [address] Comment on above: Performed By: #### G MAURA ####[address] [address] Laboratory - Chemistry and C hemistry - challengeon 12-04-2022 Glucose [Mass/Vol] 241 mg/dL above high threshold 74 - 99 WB-Ymekxjc-Ss venna Work Phone: [phone] Glucose [Mass/Vol] 160 mg/dL above high threshold 74 - 99 TE-Dtkivyc-Zw ven[place] Work Phone: Glucose [Mass/Vol] 244 mg/dL above high threshold 74 - 99 NB-Vuefooo-Lj ven[place] Work Phone: Glucose [Mass/Vol] 267 mg/dL above high threshold 74 - 99 WH-Bmrpvfv-Bt venna Work Phone: Anion gap [Moles/Vol] 10 mmol/L 10 - 20 DD-Lopdpze-Nt venna Work Phone: [phone] Calcium [Mass/Vol] 8.5 mg/dL below low threshold 8.6 - 10.3 FB-Ixebiic-Rg denisa Work Phone: Chloride [Moles/Vol] 103 mmol/L 98 - 107 MP-U rology-Ra sohan Work Phone: CO2 [Moles/Vol] 26 mmol/L 21 - 32 MP-Urolog y-Ra sohan Work Phone: Creatinine [Mass/Vol] 1.09 mg/dL above high threshold See Below MW-Gpnqape-Zl denisa Work Phone: Comment on above: Reference Range: 0.5 0 - 1.05 Glucose [Mass/Vol] 320 mg/dL above high threshold 74 - 99 PY-Vwmmisc-Tp sohan Work Phone: Potassium [Moles/Vol] 4.2 mmol/L 3.5 - 5.3 JF-Uojqejn-Sy sohan Work Phone: Sodium [Moles/Vol] 135 mmol/L below low threshold 136 - 145 GC-Hpoylaw-Es sohan Work Phone: Urea nitrogen [Mass/Vol] 10 mg/dL 6 - 23 OD-Ndvrrdu-Kl sohan Work Phone: Laboratory - Hematology and Cell countson 12-04-2022 Erythrocyte distribution width (RBC) [Ratio] 13.4 % See Below ZB-Szfsmuv-Fc sohan Work Phone: Comment on above: Reference Range: 11. 5 - 14.5 Hematocrit (Bld) [Volume fraction] 29.6 % below low threshold See Below AD-Dbgbopm-Yr sohan Work Phone: Comment on above: Reference Range: 36. 0 - 46.0 Hemoglobin (Bld) [Mass/Vol] 9.5 g/dL below low threshold See Below MT-Goilvul-Gt sohan Work Phone: Comment on above: Reference Range: 12. 0 - 16.0 MCHC (RBC) [Mass/Vol] 32.1 g/dL See Below UI-Agkjdxr-Ao sohan Work Phone: Comment on above: Reference Range: 32. 0 - 36.0 MCV (RBC) [Entitic vol] 90 fL 80 - 100 KO-Vkkxiql-Qs denisa Work Phone: Platelets (Bld) [#/Vol] 229 10*3/uL 150 - 450 LC-Zcbsugu-Kv denisa Work Phone: RBC (Bld) [#/Vol] 3.29 {x10E12/L} below low threshold See Below YT-Cdtvegd-Kb denisa Work Phone: Comment on above: Reference Range: 4.0 0 - 5.20 WBC (Bld) [#/Vol] 3.7 10*3/uL below low threshold 4.4 - 11.3 UA-Yvlrbiz-Oj denisa Work Phone: No Panel Informationon 12-04 64 {mL/min/1.73m2} >90 MP-Uro logy-Ra sohan Work Phone: Comment on above: CALCULATIONS OF SACHIN MATED GFR ARE PERFORMED USING THE 2020 CKD-EPI STUDY REFIT EQUATION WITHOUT THE RACE VARIABLE FOR THE IDMS-TRACEABLE CREATININE METHODS.https://jasn.asnjournals.org/content/early/ASN .1345247776 Rehab Note-individual therap yon 12-04-2022 Rehab Note-individual therapy Normal [facility] CBCon 12-03-2022 Erythrocyte distribution width (RBC) [Ratio] 13.6 % Normal 11.5 - 14.5 [facility] Comment on above: Performed By: #### C BC ####[address] [address] Hematocrit (Bld) [Volume fraction] 28.7 % Low 36.0 - 46.0 [facility] Comment on above: Performed By: #### C BC ####[address] [address] Hemoglobin (Bld) [Mass/Vol] 9.0 g/dL Low 12.0 - 16.0 [facility] Comment on above: Performed By: #### C BC ####[address] [address] MCHC (RBC) [Mass/Vol] 31.4 g/dL Low 32.0 - 36.0 [facility] Comment on above: Performed By: #### C BC ####[address] [address] MCV (RBC) [Entitic vol] 93 fL Normal 80 - 100 [facility] Comment on above: Performed By: #### C BC ####[id number] Platelets (Bld) [#/Vol] 236 10*3/uL Normal 150 - 450 [facility] Comment on above: Performed By: #### C BC ####[id number] RBC 3.10 x10E12/L Low 4.00 - 5.20 [facility] Comment on above: Performed By: #### C BC ####[id number] WBC (Bld) [#/Vol] 4.9 10*3/uL Normal 4.4 - 11.3 [facility] Comment on above: Performed By: #### C BC ####[id number] COMPREHENSIVE PANELon 2022 Albumin [Mass/Vol] 2.8 g/dL Low 3.4 - 5.0 [facility] Comment on above: Performed By: #### C MP ####[id number] ALP [Catalytic activity/Vol] 64 U/L Normal 33 - 110 [facility] Comment on above: Performed By: #### C MP ####[address] [address] ALT [Catalytic activity/Vol] 13 U/L Normal 7 - 45 [facility] Comment on above: Result Comment: Bridget ents treated with Sulfasalazine may generate falsely decreased results for ALT. Performed By: #### C MP ####[address] [address] Anion gap [Moles/Vol] 10 mmol/L Normal 10 - 20 [facility] Comment on above: Performed By: #### C MP ####[address] [address] AST [Catalytic activity/Vol] 21 U/L Normal 9 - 39 [facility] Comment on above: Result Comment: MILD HEMOLYSIS DETECTED. The result may be falsely elevated due tohemolysis or other interferents. Clinical correlation is recommended.Repeat testing may be considered. Performed By: #### C MP ####[address] [address] Bilirubin [Mass/Vol] 0.4 mg/dL Normal 0.0 - 1.2 [facility] Comment on above: Performed By: #### C MP ####[address] [address] Calcium [Mass/Vol] 7.8 mg/dL Low 8.6 - 10.3 [facility] Comment on above: Performed By: #### C MP ####[address] [address] Chloride [Moles/Vol] 108 mmol/L High 98 - 107 [facility] Comment on above: Performed By: #### C MP ####[address] [address] [address] Creatinine [Mass/Vol] 1.51 mg/dL High 0.50 - 1.05 [facility] Comment on above: Performed By: #### C MP ####[address] [address] GFR/1.73 sq M.predicted among non-blacks MDRD (S/P/Bld) [Vol rate/Area] 43 mL/min/{1.73_m2} Abnormal >90 [facility] Comment on above: Result Comment: CALC ULATIONS OF ESTIMATED GFR ARE PERFORMED USING THE 2020 CKD-EPI STUDY REFIT EQUATION WITHOUT THE RACE VARIABLE FOR THE IDMS-TRACEABLE CREATININE METHODS.https://jasn.asnjournals.org/content//ASN .3517758294 Performed By: #### C MP ####[address] [address] Glucose [Mass/Vol] 185 mg/dL High 74 - 99 [facility] Comment on above: Performed By: #### C MP ####[address] [address] HCO3 (Bld) [Moles/Vol] 23 mmol/L Normal 21 - 32 [facility] Comment on above: Performed By: #### C MP ####[address] [address] Potassium [Moles/Vol] 4.7 mmol/L Normal 3.5 - 5.3 [facility] Comment on above: Result Comment: MILD HEMOLYSIS DETECTED. The result may be falsely elevated due tohemolysis or other interferents. Clinical correlation is recommended.Repeat testing may be considered. Performed By: #### C MP ####[address] [address] Protein [Mass/Vol] 5.8 g/dL Low 6.4 - 8.2 [facility] Comment on above: Performed By: #### C MP ####[address] [address] Sodium [Moles/Vol] 136 mmol/L Normal 136 - 145 [facility] Comment on above: Performed By: #### C MP ####[address] [address] Urea nitrogen [Mass/Vol] 14 mg/dL Normal 6 - 23 [facility] Comment on above: Performed By: #### C MP ####[address] [address] Clinical Event Note-ED Post Discharge Result Follow Up: Atteon 12-03-2022 Clinical Event Note-ED Post Discharge Result Follow Up: Atte Normal [facility] Daily Progress Note-General Internal Medicineon 12-03-2022 Daily Progress Note-General Internal Medicine [facility] Daily Progress Note-Nephrolo gyon 12-03-2022 Daily Progress Note-Nephrology Normal [facility] Daily Progress Note-Urologyo n 12-03-2022 Daily Progress Note-Urology Normal [facility] GLUCOSE-POCTon 12-03-2022 Glucose [Mass/Vol] 322 mg/dL High 74 - 99 [facility] Comment on above: Performed By: #### G MAURA ####[address] [address] Glucose [Mass/Vol] 154 mg/dL High 74 - 99 [facility] Comment on above: Performed By: #### G MAURA ####[address] [address] Glucose [Mass/Vol] 103 mg/dL High 74 - 99 [facility] Comment on above: Performed By: #### G MAURA ####[address] [address] Glucose [Mass/Vol] 126 mg/dL High 74 - 99 [facility] Comment on above: Performed By: #### G MAURA ####[address] [address] Glucose [Mass/Vol] 177 mg/dL High 74 - 99 [facility] Comment on above: Performed By: #### G MAURA ####[address] [address] Laboratory - Chemistry and C hemistry - challengeon 12-03-2022 Glucose [Mass/Vol] 322 mg/dL above high threshold 74 - 99 GA-Gywyzrc-Vs [place] Work Phone: [phone] Glucose [Mass/Vol] 154 mg/dL above high threshold 74 - 99 JG-Ujnkenf-Fk [place] Work Phone: Glucose [Mass/Vol] 103 mg/dL above high threshold 74 - 99 AD-Zxawhhb-Jn [place] Work Phone: [phone] Glucose [Mass/Vol] 126 mg/dL above high threshold 74 - 99 AV-Mwgewax-Xr [place] Work Phone: [phone] Glucose [Mass/Vol] 177 mg/dL above high threshold 74 - 99 OC-Tgmrgcn-Ju [place] Work Phone: [phone] Albumin BCP dye [Mass/Vol] 2.8 g/dL below low threshold 3.4 - 5.0 [facility] sohan Work Phone: ALP [Catalytic activity/Vol] 64 U/L 33 - 110 [facility] denis Work Phone: ALT With P-5'-P [Catalytic activity/Vol] 13 U/L 7 - 45 [facility] denis Work Phone: Comment on above: Patients treated wit h Sulfasalazine may generate falsely decreased results for ALT. Anion gap [Moles/Vol] 10 mmol/L 10 - 20 [facility] sohan Work Phone: AST With P-5'-P [Catalytic activity/Vol] 21 U/L 9 - 39 [facility] denis Work Phone: Comment on above: MILD HEMOLYSIS DETEC ENZO. The result may be falsely elevated due tohemolysis or other interferents. Clinical correlation is recommended.Repeat testing may be considered. Bilirubin [Mass/Vol] 0.4 mg/dL 0.0 - 1.2 MP-U [facility] sohan Work Phone: Calcium [Mass/Vol] 7.8 mg/dL below low threshold 8.6 - 10.3 [facility] sohan Work Phone: Chloride [Moles/Vol] 108 mmol/L above high threshold 98 - 107 [facility] denis Work Phone: CO2 [Moles/Vol] 23 mmol/L 21 - 32 [facility] [place] [place] [facility] Work Phone: Creatinine [Mass/Vol] 1.51 mg/dL above high threshold See Below [facility] sohan Work Phone: Comment on above: Reference Range: 0.5 0 - 1.05 Glucose [Mass/Vol] 185 mg/dL above high threshold 74 - 99 [facility] sohan Work Phone: Potassium [Moles/Vol] 4.7 mmol/L 3.5 - 5.3 RP-Rvnmrgp-Hr sohan Work Phone: Comment on above: MILD HEMOLYSIS DETEC ENZO. The result may be falsely elevated due tohemolysis or other interferents. Clinical correlation is recommended.Repeat testing may be considered. Protein [Mass/Vol] 5.8 g/dL below low threshold 6.4 - 8.2 UW-Jcozmbr-Iq [employer] Work Phone: Sodium [Moles/Vol] 136 mmol/L 136 - 145 -Uro logy- [employer] Work Phone: Urea nitrogen [Mass/Vol] 14 mg/dL 6 - 23 QA-Yzdyhem-Cl [employer] Work Phone: Laboratory - Hematology and Cell countson 12-03-2022 Erythrocyte distribution width (RBC) [Ratio] 13.6 % See Below AG-Apsvinq-Wv [employer] Work Phone: Comment on above: Reference Range: 11. 5 - 14.5 Hematocrit (Bld) [Volume fraction] 28.7 % below low threshold See Below NG-Ywmcnxn-Ae [employer] Work Phone: Comment on above: Reference Range: 36. 0 - 46.0 Hemoglobin (Bld) [Mass/Vol] 9.0 g/dL below low threshold See Below YF-Uaeqpus-Af [employer] Work Phone: Comment on above: Reference Range: 12. 0 - 16.0 MCHC (RBC) [Mass/Vol] 31.4 g/dL below low threshold See Below MP-Jecdgae-Er [employer] Work Phone: Comment on above: Reference Range: 32. 0 - 36.0 MCV (RBC) [Entitic vol] 93 fL 80 - 100 RX-Clanpmx-Hc [employer] Work Phone: Platelets (Bld) [#/Vol] 236 10*3/uL 150 - 450 GK-Awtzqgt-Xs [employer] Work Phone: RBC (Bld) [#/Vol] 3.10 {x10E12/L} below low threshold See Below GU-Vmqnfsv-Wb [employer] Work Phone: Comment on above: Reference Range: 4.0 0 - 5.20 WBC (Bld) [#/Vol] 4.9 10*3/uL 4.4 - 11.3 MP-Uro logy-Ra denisa Work Phone: No Panel Informationon 12-03 Please click on the link to view the study images Normal CA-Pijoums-Oc ven[place] Work Phone: 43 {mL/min/1.73m2} Abnormal >90 MP-Uro logy-Ra [place] Work Phone: Comment on above: CALCULATIONS OF SACHIN MATED GFR ARE PERFORMED USING THE 2020 CKD-EPI STUDY REFIT EQUATION WITHOUT THE RACE VARIABLE FOR THE IDMS-TRACEABLE CREATININE METHODS.https://jasn.asnjournals.org/content/early/ASN .6970442810 Preop Checkliston Preop Checklist Normal [facility] Rehab Note-physical therapyo n 12-03-2022 Rehab Note-physical therapy Normal [facility] CBC AND DIFFERENTIALon 12-02 % AUTOMATED IMMATURE GRAN 0.2 % Normal 0.0 - 0.9 [facility] Comment on above: Result Comment: Alla ture Granulocyte Count (IG) includes promyelocytes, myelocytes and metamyelocytes but does not include bands. Percent differential counts (%) should be interpreted in the context of the absolute cell counts (cells/L). Performed By: #### C BCDF ####[address] [address] Basophils (Bld) [#/Vol] 0.05 10*3/uL Normal 0.00 - 0.10 [facility] Comment on above: Performed By: #### C BCDF ####[address] [address] Basophils/100 WBC (Bld) 0.8 % Normal 0.0 - 2.0 [facility] Comment on above: Performed By: #### C BCDF ####[address] [place] [address] Eosinophils (Bld) [#/Vol] 0.09 10*3/uL Normal 0.00 - 0.70 [facility] Comment on above: Performed By: #### C BCDF ####[address] [address] Eosinophils/100 WBC (Bld) 1.5 % Normal 0.0 - 6.0 [facility] Comment on above: Performed By: #### C BCDF ####[address] [address] Erythrocyte distribution width (RBC) [Ratio] 13.7 % Normal 11.5 - 14.5 [facility] Comment on above: Performed By: #### C BCDF ####[address] [address] Hematocrit (Bld) [Volume fraction] 32.7 % Low 36.0 - 46.0 [facility] Comment on above: Performed By: #### C BCDF ####[address] [address] Hemoglobin (Bld) [Mass/Vol] 10.0 g/dL Low 12.0 - 16.0 [facility] Comment on above: Performed By: #### C BCDF ####[address] [address] Lymphocytes (Bld) [#/Vol] 2.11 10*3/uL Normal 1.20 - 4.80 [facility] Comment on above: Performed By: #### C BCDF ####[address] [address] Lymphocytes/100 WBC (Bld) 35.0 % Normal 13.0 - 44.0 [facility] Comment on above: Performed By: #### C BCDF ####[address] [address] MCHC (RBC) [Mass/Vol] 30.6 g/dL Low 32.0 - 36.0 [facility] Comment on above: Performed By: #### C BCDF ####[address] [address] MCV (RBC) [Entitic vol] 94 fL Normal 80 - 100 [facility] Comment on above: Performed By: #### C BCDF ####[address] [address] Monocytes (Bld) [#/Vol] 0.43 10*3/uL Normal 0.10 - 1.00 [facility] Comment on above: Performed By: #### C BCDF ####[address] [address] Monocytes/100 WBC (Bld) 7.1 % Normal 2.0 - 10.0 [facility] Comment on above: Performed By: #### C BCDF ####[address] [address] Neutrophils (Bld) [#/Vol] 3.34 10*3/uL Normal 1.20 - 7.70 [facility] Comment on above: Result Comment: Perc ent differential counts (%) should be interpreted in the context of the absolute cell counts (cells/L). Performed By: #### C BCDF ####[address] [address] Neutrophils/100 WBC (Bld) 55.4 % Normal 40.0 - 80.0 [facility] Comment on above: Performed By: #### C BCDF ####[address] [address] Platelets (Bld) [#/Vol] 192 10*3/uL Normal 150 - 450 [facility] Comment on above: Performed By: #### C BCDF ####[address] [address] RBC 3.47 x10E12/L Low 4.00 - 5.20 [facility] Comment on above: Performed By: #### C BCDF ####[address] [address] WBC (Bld) [#/Vol] 6.0 10*3/uL Normal 4.4 - 11.3 [facility] Comment on above: Performed By: #### C BCDF ####[address] [address] COMPREHENSIVE PANELon 2022 Albumin [Mass/Vol] 2.7 g/dL Low 3.4 - 5.0 [facility] Comment on above: Performed By: #### C MP ####[address] [address] ALP [Catalytic activity/Vol] 56 U/L Normal 33 - 110 [facility] Comment on above: Performed By: #### C MP ####[address] [address] ALT [Catalytic activity/Vol] 11 U/L Normal 7 - 45 [facility] Comment on above: Result Comment: Bridget ents treated with Sulfasalazine may generate falsely decreased results for ALT. Performed By: #### C MP ####[place] [address] Anion gap [Moles/Vol] 12 mmol/L Normal 10 - 20 [facility] Comment on above: Performed By: #### C MP ####[place] [id number] AST [Catalytic activity/Vol] 9 U/L Normal 9 - 39 [facility] Comment on above: Performed By: #### C MP ####[address] [address] Bilirubin [Mass/Vol] 0.6 mg/dL Normal 0.0 - 1.2 [facility] Comment on above: Performed By: #### C MP ####[address] [address] Calcium [Mass/Vol] 7.0 mg/dL Low 8.6 - 10.3 [facility] Comment on above: Performed By: #### C MP ####[address] [address] Chloride [Moles/Vol] 104 mmol/L Normal 98 - 107 [facility] Comment on above: Performed By: #### C MP ####[address] [address] Creatinine [Mass/Vol] 2.02 mg/dL High 0.50 - 1.05 [facility] Comment on above: Performed By: #### C MP ####[address] [address] GFR/1.73 sq M.predicted among non-blacks MDRD (S/P/Bld) [Vol rate/Area] 31 mL/min/{1.73_m2} Abnormal >90 [facility] Comment on above: Result Comment: CALC ULATIONS OF ESTIMATED GFR ARE PERFORMED USING THE 2020 CKD-EPI STUDY REFIT EQUATION WITHOUT THE RACE VARIABLE FOR THE IDMS-TRACEABLE CREATININE METHODS.https://jasn.asnjournals.org/content//ASN .7878525692 Performed By: #### C MP ####[address] [address] Glucose [Mass/Vol] 360 mg/dL High 74 - 99 [facility] Comment on above: Performed By: #### C MP ####[address] [address] HCO3 (Bld) [Moles/Vol] 21 mmol/L Normal 21 - 32 [facility] Comment on above: Performed By: #### C MP ####[address] [address] Potassium [Moles/Vol] 4.1 mmol/L Normal 3.5 - 5.3 [facility] Comment on above: Performed By: #### C MP ####[address] [address] Protein [Mass/Vol] 5.5 g/dL Low 6.4 - 8.2 [facility] Comment on above: Performed By: #### C MP ####[address] [address] Sodium [Moles/Vol] 133 mmol/L Low 136 - 145 [facility] Comment on above: Performed By: #### C MP ####[address] [address] Urea nitrogen [Mass/Vol] 23 mg/dL Normal 6 - 23 [facility] Comment on above: Performed By: #### C MP ####[facility] [place] [address] Complete Blood Count + Diffjavier day 12-02-2022 Basophils/100 WBC (Bld) 0.8 % 0.0 - 2.0 QJ-Amzsbbg-Lm [facility] Work Phone: Erythrocyte distribution width (RBC) [Ratio] 13.7 % See Below RQ-Rcrqfil-Bz [place] Work Phone: Comment on above: Reference Range: 11. 5 - 14.5 Hematocrit (Bld) [Volume fraction] 32.7 % below low threshold See Below KH-Iaxozfn-Qg [place] Work Phone: Comment on above: Reference Range: 36. 0 - 46.0 Hemoglobin (Bld) [Mass/Vol] 10.0 g/dL below low threshold See Below XJ-Tsibpqq-Vb [facility] Work Phone: Comment on above: Reference Range: 12. 0 - 16.0 Lymphocytes/100 WBC (Bld) 35.0 % See Below MJ-Jtbqvgk-Hp [employer] Work Phone: Comment on above: Reference Range: 13. 0 - 44.0 MCHC (RBC) [Mass/Vol] 30.6 g/dL below low threshold See Below MV-Xkhlskg-Qq [place] Work Phone: Comment on above: Reference Range: 32. 0 - 36.0 MCV (RBC) [Entitic vol] 94 fL 80 - 100 DX-Eooxuwh-Bt [place] Work Phone: Monocytes/100 WBC (Bld) 7.1 % 2.0 - 10.0 HD-Oobiupg-Tc [facility] Work Phone: Neutrophils/100 WBC (Bld) 55.4 % See Below GO-Dzpcoob-Ph [place] Work Phone: Comment on above: Reference Range: 40. 0 - 80.0 Platelets (Bld) [#/Vol] 192 10*3/uL 150 - 450 DM-Vwrrqjp-Md [place] Work Phone: RBC (Bld) [#/Vol] 3.47 {x10E12/L} below low threshold See Below MO-Rvrtqsu-Lq denis Work Phone: Comment on above: Reference Range: 4.0 0 - 5.20 WBC (Bld) [#/Vol] 6.0 10*3/uL 4.4 - 11.3 [facility] logy- denis Work Phone: Complete Blood Count + Differential 0.05 {x10E9/L} See Below PW-Qgccqiw-Re denis Work Phone: Comment on above: Reference Range: 0.0 0 - 0.10 Complete Blood Count + Differential 0.09 {x10E9/L} See Below YG-Aeawans-Ne denis Work Phone: Comment on above: Reference Range: 0.0 0 - 0.70 Complete Blood Count + Differential 0.43 {x10E9/L} See Below NM-Ubpflrq-Kc sohan Work Phone: Comment on above: Reference Range: 0.1 0 - 1.00 Complete Blood Count + Differential 2.11 {x10E9/L} See Below CM-Ozgtbjp-Ed sohan Work Phone: Comment on above: Reference Range: 1.2 0 - 4.80 Complete Blood Count + Differential 3.34 {x10E9/L} See Below YJ-Qthjppa-Qx [place] Work Phone: Comment on above: Reference Range: 1.2 0 - 7.70 Percent differential counts (%) should be interpreted in the context of the absolute cell counts (cells/L). Complete Blood Count + Differential 1.5 % 0.0 - 6.0 UC-Ymroyru-Dh denis Work Phone: Complete Blood Count + Differential 0.2 % 0.0 - 0.9 QG-Dzcijob-Fn denis Work Phone: Comment on above: Immature Granulocyte Count (IG) includes promyelocytes, myelocytes and metamyelocytes but does not include bands. Percent differential counts (%) should be interpreted in the context of the absolute cell counts (cells/L). Consult-Nephrologyon 2 023 Consult-Nephrology Normal [facility] Daily Progress Note-General Internal Medicineon 12-02-2022 Daily Progress Note-General Internal Medicine Normal [facility] Daily Progress Note-Urologyo n 12-02-2022 Daily Progress Note-Urology Normal [facility] GLUCOSE-POCTon 12-02-2022 Glucose [Mass/Vol] 215 mg/dL High 74 - 99 [facility] Comment on above: Performed By: #### G MAURA ####[address] [address] Glucose [Mass/Vol] 184 mg/dL High [address] Comment on above: Performed By: #### G MAURA ####[address] [address] Glucose [Mass/Vol] 223 mg/dL High [address] Comment on above: Performed By: #### G MAURA ####[address] [address] Glucose [Mass/Vol] 333 mg/dL High [address] [place] [address] Comment on above: Performed By: #### G MAURA ####[address] [address] Glucose [Mass/Vol] 321 mg/dL High [address] [place] [address] Comment on above: Performed By: #### G MAURA ####[address] [address] Glucose [Mass/Vol] 306 mg/dL High [address] [place] [address] Comment on above: Performed By: #### G MAURA ####[address] [address] Laboratory - Chemistry and C hemistry - challengeon 12-02-2022 Glucose [Mass/Vol] 215 mg/dL above high threshold 74 - 99 VN-Cvfmono-Kg denisa Work Phone: Glucose [Mass/Vol] 184 mg/dL above high threshold 74 - 99 OZ-Yvgxlpg-Vl [place] Work Phone: Glucose [Mass/Vol] 223 mg/dL above high threshold 74 - 99 [facility] Work Phone: Glucose [Mass/Vol] 333 mg/dL above high threshold 74 - 99 [facility] Work Phone: Glucose [Mass/Vol] 321 mg/dL above high threshold 74 - 99 [facility] Work Phone: Glucose [Mass/Vol] 306 mg/dL above high threshold 74 - 99 [facility] Work Phone: Albumin BCP dye [Mass/Vol] 2.7 g/dL below low threshold 3.4 - 5.0 [facility] Work Phone: ALP [Catalytic activity/Vol] 56 U/L 33 - 110 [facility] Work Phone: ALT With P-5'-P [Catalytic activity/Vol] 11 U/L 7 - 45 [facility] [employer] Work Phone: [phone] Comment on above: Patients treated wit h Sulfasalazine may generate falsely decreased results for ALT. Anion gap [Moles/Vol] 12 mmol/L 10 - 20 [facility] [employer] Work Phone: AST With P-5'-P [Catalytic activity/Vol] 9 U/L 9 - 39 [facility] [employer] Work Phone: Bilirubin [Mass/Vol] 0.6 mg/dL 0.0 - 1.2 MP-U [facility] [employer] Work Phone: Calcium [Mass/Vol] 7.0 mg/dL below low threshold 8.6 - 10.3 [facility] [employer] Work Phone: Chloride [Moles/Vol] 104 mmol/L 98 - 107 MP-U [facility] Work Phone: CO2 [Moles/Vol] 21 mmol/L 21 - 32 [facility] Work Phone: Creatinine [Mass/Vol] 2.02 mg/dL above high threshold See Below RU-Smpzmur-Wa [place] Work Phone: Comment on above: Reference Range: 0.5 0 - 1.05 Glucose [Mass/Vol] 360 mg/dL above high threshold 74 - 99 TP-Nfkbwiz-RaAfshin parry Work Phone: Potassium [Moles/Vol] 4.1 mmol/L 3.5 - 5.3 KE-Qujyvbn-Pc [facility] Work Phone: Protein [Mass/Vol] 5.5 g/dL below low threshold 6.4 - 8.2 ME-Igdbmij-Zc [place] Work Phone: Sodium [Moles/Vol] 133 mmol/L below low threshold 136 - 145 CS-Mnzbzbd-OsAfshin parry Work Phone: Urea nitrogen [Mass/Vol] 23 mg/dL 6 - 23 HH-Hgdklak-VhAfshin parry Work Phone: No Panel Informationon 12-02 31 {mL/min/1.73m2} Abnormal >90 Tai [employer] Work Phone: Comment on above: CALCULATIONS OF SACHIN MATED GFR ARE PERFORMED USING THE 2020 CKD-EPI STUDY REFIT EQUATION WITHOUT THE RACE VARIABLE FOR THE IDMS-TRACEABLE CREATININE METHODS.https://jasn.asnjournals.org/content//ASN .6662978934 Nutrition Therapy-Assessment - MST 3on 12-02-2022 Nutrition Therapy-Assessment - MST 3 Normal [facility] OT Evaluation v2-individual therapyon 12-02-2022 OT Evaluation v2-individual therapy Normal [facility] PT Evaluation v2-individual therapyon 12-02-2022 PT Evaluation v2-individual therapy Normal [facility] BASIC METABOLIC PANELon 11-06 Anion gap [Moles/Vol] 11 mmol/L Normal 10 - 20 [facility] Comment on above: Performed By: #### B MP ####[address] [address] Calcium [Mass/Vol] 7.3 mg/dL Low 8.6 - 10.3 [facility] Comment on above: Result Comment: Conf irmed by repeat analysis Performed By: #### B MP ####[address] [address] Creatinine [Mass/Vol] 1.90 mg/dL High 0.50 - 1.05 [facility] Comment on above: Result Comment: Conf irmed by repeat analysis Performed By: #### B MP ####[address] [address] GFR/1.73 sq M.predicted among non-blacks MDRD (S/P/Bld) [Vol rate/Area] 33 mL/min/{1.73_m2} Abnormal >90 [facility] Comment on above: Result Comment: CALC ULATIONS OF ESTIMATED GFR ARE PERFORMED USING THE 2020 CKD-EPI STUDY REFIT EQUATION WITHOUT THE RACE VARIABLE FOR THE IDMS-TRACEABLE CREATININE METHODS.https://jasn.asnjournals.org/content/early//ASN .9440054935 Performed By: #### B MP ####[address] [address] Sodium [Moles/Vol] 129 mmol/L Low 136 - 145 [facility] Comment on above: Result Comment: Conf irmed by repeat analysis Performed By: #### B MP ####[address] [address] Chloride [Moles/Vol] 99 mmol/L Normal 98 - 107 [facility] Comment on above: Performed By: #### B MP ####[address] [address] Glucose [Mass/Vol] 349 mg/dL High 74 - 99 [facility] Comment on above: Performed By: #### B MP ####[address] [address] HCO3 (Bld) [Moles/Vol] 23 mmol/L Normal 21 - 32 [facility] Comment on above: Performed By: #### B MP ####[address] [address] Potassium [Moles/Vol] 3.9 mmol/L Normal 3.5 - 5.3 [facility] Comment on above: Performed By: #### B MP ####[address] [address] Urea nitrogen [Mass/Vol] 21 mg/dL Normal 6 - 23 [facility] Comment on above: Performed By: #### B MP ####[address] [address] Anion gap [Moles/Vol] 11 mmol/L Normal 10 - 20 [facility] Comment on above: Performed By: #### B MP ####[address] [address] Calcium [Mass/Vol] 8.1 mg/dL Low 8.6 - 10.3 [facility] Comment on above: Performed By: #### B MP ####[address] [address] Chloride [Moles/Vol] 97 mmol/L Low 98 - 107 [facility] Comment on above: Performed By: #### B MP ####[address] [address] Creatinine [Mass/Vol] 1.19 mg/dL High 0.50 - 1.05 [facility] Comment on above: Performed By: #### B MP ####[address] [address] GFR/1.73 sq M.predicted among non-blacks MDRD (S/P/Bld) [Vol rate/Area] 58 mL/min/{1.73_m2} Abnormal >90 [facility] Comment on above: Result Comment: CALC ULATIONS OF ESTIMATED GFR ARE PERFORMED USING THE 2020 CKD-EPI STUDY REFIT EQUATION WITHOUT THE RACE VARIABLE FOR THE IDMS-TRACEABLE CREATININE METHODS.https://jasn.asnjournals.org/content//ASN .4276929481 Performed By: #### B MP ####[address] [address] Glucose [Mass/Vol] 161 mg/dL High 74 - 99 [facility] Comment on above: Performed By: #### B MP ####[address] [address] HCO3 (Bld) [Moles/Vol] 27 mmol/L Normal 21 - 32 [facility] Comment on above: Performed By: #### B MP ####[address] [address] Potassium [Moles/Vol] 3.5 mmol/L Normal 3.5 - 5.3 [facility] Comment on above: Performed By: #### B MP ####[address] [address] Sodium [Moles/Vol] 131 mmol/L Low 136 - 145 [facility] Comment on above: Performed By: #### B MP ####[address] [address] Urea nitrogen [Mass/Vol] 17 mg/dL Normal 6 - 23 [facility] Comment on above: Performed By: #### B MP ####[address] [address] Anion gap [Moles/Vol] 11 mmol/L Normal 10 - 20 [facility] Comment on above: Performed By: #### B MP ####[address] [address] Calcium [Mass/Vol] 8.5 mg/dL Low 8.6 - 10.3 [facility] Comment on above: Performed By: #### B MP ####[address] [address] Chloride [Moles/Vol] 97 mmol/L Low 98 - 107 [facility] Comment on above: Performed By: #### B MP ####[address] [address] Creatinine [Mass/Vol] 1.00 mg/dL Normal 0.50 - 1.05 [facility] Comment on above: Performed By: #### B MP ####[address] [address] GFR/1.73 sq M.predicted among non-blacks MDRD (S/P/Bld) [Vol rate/Area] 71 mL/min/{1.73_m2} Normal >90 [facility] Comment on above: Result Comment: CALC ULATIONS OF ESTIMATED GFR ARE PERFORMED USING THE 2020 CKD-EPI STUDY REFIT EQUATION WITHOUT THE RACE VARIABLE FOR THE IDMS-TRACEABLE CREATININE METHODS.https://jasn.asnjournals.org/content/early//ASN .5932593049 Performed By: #### B MP ####[address] [address] Glucose [Mass/Vol] 216 mg/dL High 74 - 99 [facility] Comment on above: Performed By: #### B MP ####[address] [address] HCO3 (Bld) [Moles/Vol] 29 mmol/L Normal 21 - 32 [facility] Comment on above: Performed By: #### B MP ####[address] [address] Potassium [Moles/Vol] 3.7 mmol/L Normal 3.5 - 5.3 [facility] Comment on above: Performed By: #### B MP ####[address] [address] Sodium [Moles/Vol] 133 mmol/L Low 136 - 145 [facility] Comment on above: Performed By: #### B MP ####[address] [address] Urea nitrogen [Mass/Vol] 16 mg/dL Normal 6 - 23 [facility] Comment on above: Performed By: #### B MP ####[address] [address] BNPon 12-01-2022 Natriuretic peptide B (Bld) [Mass/Vol] 47 pg/mL Normal 0 - 99 [facility] Comment on above: Result Comment: . <1 00 pg/mL - Heart failure -664 pg/mL - Intermediate probability of acute heart. failure exacerbation. Correlate with clinical. context and patient history. >=300 pg/mL - Heart Failure likely. Correlate with clinical. context and patient history.BNP testing is performed using different testingmethodology at [facility] than at [facility]. Direct result comparisons shouldonly be made within the same method. Performed By: #### B NP2 ####[address] [address] CBCon 12-01-2022 Erythrocyte distribution width (RBC) [Ratio] 13.5 % Normal 11.5 - 14.5 [facility] Comment on above: Performed By: #### C BC ####[place] [id number] Hematocrit (Bld) [Volume fraction] 31.5 % Low 36.0 - 46.0 [facility] Comment on above: Performed By: #### C BC ####[place] [id number] Hemoglobin (Bld) [Mass/Vol] 9.7 g/dL Low 12.0 - 16.0 [facility] Comment on above: Performed By: #### C BC ####[place] [id number] MCHC (RBC) [Mass/Vol] 30.8 g/dL Low 32.0 - 36.0 [facility] Comment on above: Performed By: #### C BC ####[address] [address] MCV (RBC) [Entitic vol] 93 fL Normal 80 - 100 [facility] Comment on above: Performed By: #### C BC ####[address] [address] Platelets (Bld) [#/Vol] 184 10*3/uL Normal 150 - 450 [facility] Comment on above: Performed By: #### C BC ####[address] [address] RBC 3.38 x10E12/L Low 4.00 - 5.20 [facility] Comment on above: Performed By: #### C BC ####[place] [id number] WBC (Bld) [#/Vol] 7.5 10*3/uL Normal 4.4 - 11.3 [facility] Comment on above: Performed By: #### C BC ####[place] [id number] COMPREHENSIVE PANELon 2022 Albumin [Mass/Vol] 2.9 g/dL Low 3.4 - 5.0 [facility] Comment on above: Performed By: #### C MP ####[place] [id number] ALP [Catalytic activity/Vol] 56 U/L Normal 33 - 110 [facility] Comment on above: Performed By: #### C MP ####[place] [id number] ALT [Catalytic activity/Vol] 10 U/L Normal 7 - 45 [facility] Comment on above: Result Comment: Bridget ents treated with Sulfasalazine may generate falsely decreased results for ALT. Performed By: #### C MP ####[place] [id number] Anion gap [Moles/Vol] 12 mmol/L Normal 10 - 20 [facility] Comment on above: Performed By: #### C MP ####[place] [id number] AST [Catalytic activity/Vol] 9 U/L Normal 9 - 39 [facility] Comment on above: Performed By: #### C MP ####[place] [id number] Bilirubin [Mass/Vol] 0.7 mg/dL Normal 0.0 - 1.2 [facility] Comment on above: Performed By: #### C MP ####[place] [address] Calcium [Mass/Vol] 7.3 mg/dL Low 8.6 - 10.3 [facility] Comment on above: Performed By: #### C MP ####[place] [id number] Chloride [Moles/Vol] 100 mmol/L Normal 98 - 107 [facility] Comment on above: Performed By: #### C MP ####[address] [address] Creatinine [Mass/Vol] 1.89 mg/dL High 0.50 - 1.05 [facility] Comment on above: Performed By: #### C MP ####[address] [address] GFR/1.73 sq M.predicted among non-blacks MDRD (S/P/Bld) [Vol rate/Area] 33 mL/min/{1.73_m2} Abnormal >90 [facility] Comment on above: Result Comment: CALC ULATIONS OF ESTIMATED GFR ARE PERFORMED USING THE 2020 CKD-EPI STUDY REFIT EQUATION WITHOUT THE RACE VARIABLE FOR THE IDMS-TRACEABLE CREATININE METHODS.https://jasn.asnjournals.org/content/early//ASN .0343394915 Performed By: #### C MP ####[address] [address] Glucose [Mass/Vol] 368 mg/dL High 74 - 99 [facility] Comment on above: Performed By: #### C MP ####[address] [address] HCO3 (Bld) [Moles/Vol] 23 mmol/L Normal 21 - 32 [facility] Comment on above: Performed By: #### C MP ####[address] [address] Potassium [Moles/Vol] 4.0 mmol/L Normal 3.5 - 5.3 [facility] Comment on above: Performed By: #### C MP ####[address] [address] Protein [Mass/Vol] 5.9 g/dL Low 6.4 - 8.2 [facility] Comment on above: Performed By: #### C MP ####[address] [address] Sodium [Moles/Vol] 131 mmol/L Low 136 - 145 [facility] Comment on above: Performed By: #### C MP ####[address] [address] Urea nitrogen [Mass/Vol] 22 mg/dL Normal [facility] Comment on above: Performed By: #### C MP ####[address] [address] Clinical Event Note-Anion GA P closedon 12-01-2022 Clinical Event Note-Anion GAP closed Normal [facility] Consult-Urologyon 12-01-2022 Consult-Urology Normal [facility] Daily Progress Note-General Internal Medicineon 12-01-2022 Daily Progress Note-General Internal Medicine Normal [facility] EMR ADDONon 12-01-2022 ADDON CONFIRMATION REQUEST REC'D Normal [facility] Comment on above: Performed By: #### E MRAD ####[address] [address] GLUCOSE-POCTon 12-01-2022 Glucose [Mass/Vol] 338 mg/dL High 74 - [facility] Comment on above: Performed By: #### G MAURA ####[address] [address] Glucose [Mass/Vol] 326 mg/dL High - [address] [place] [address] Comment on above: Performed By: #### G MAURA ####[address] [address] Glucose [Mass/Vol] 309 mg/dL High - [facility] Comment on above: Performed By: #### G MAURA ####[address] [address] Glucose [Mass/Vol] 306 mg/dL High 74 - [address] [place] [address] Comment on above: Performed By: #### G MAURA ####[address] [address] Glucose [Mass/Vol] 259 mg/dL High 74 - [address] [place] [address] Comment on above: Performed By: #### G MAURA ####[address] [address] Glucose [Mass/Vol] 200 mg/dL High 74 - [facility] Comment on above: Performed By: #### G MAURA ####[address] [place] [address] Glucose [Mass/Vol] 192 mg/dL High 74 - [address] [place] [address] Comment on above: Performed By: #### G MAURA ####[place] [address] [place] [address] Glucose [Mass/Vol] 194 mg/dL High 74 - [address] [place] [address] Comment on above: Performed By: #### G MAURA ####[address] [address] Glucose [Mass/Vol] 177 mg/dL High 74 - [address] [place] [address] Comment on above: Performed By: #### G MAURA ####[address] [address] Glucose [Mass/Vol] 159 mg/dL High 74 - [address] [place] [address] Comment on above: Performed By: #### G MAURA ####[address] [address] Glucose [Mass/Vol] 164 mg/dL High 74 - [address] [place] [address] Comment on above: Performed By: #### G MAURA ####[address] [address] Glucose [Mass/Vol] 175 mg/dL High 74 - [address] [place] [address] Comment on above: Performed By: #### G MAURA ####[address] [address] Glucose [Mass/Vol] 168 mg/dL High 74 - [address] [place] [address] Comment on above: Performed By: #### G MAURA ####[address] [address] Glucose [Mass/Vol] 197 mg/dL High 74 - [address] [place] [address] Comment on above: Performed By: #### G MAURA ####[address] [address] Glucose [Mass/Vol] 293 mg/dL High 74 - [address] [place] [address] Comment on above: Performed By: #### G MAURA ####[address] [address] HEMOGLOBIN A1Con 12-01-2022 Glucose [Mass/Vol] 246 mg/dL Normal [facility] Comment on above: Performed By: #### H BA1E ####[address] [address] [place] [address] HbA1c (Bld) [Mass fraction] 10.2 % Abnormal [facility] Comment on above: Result Comment: Diag nosis of Diabetes-Adults Non-Diabetic: < or = 5.6% Increased risk for developing diabetes: 5.7-6.4% Diagnostic of diabetes: > or = 6.5%. Monitoring of Diabetes Age (y) Therapeutic Goal (%) Adults: >18 <7.0 Pediatrics: 13-18 <7.5 7-12 <8.0 0- 6 7.5-8.5 [employer]. Diabetes Care 33(S1), Sep 2009. Performed By: #### H BA1E ####[address] [address] Hemoglobin A1Con 12-01-2022 Glucose [Mass/Vol] 246 mg/dL MP-Uro logy-[employer] Work Phone: HbA1c (Bld) [Mass fraction] 10.2 % Abnormal WR-Yhsrfbr-Vt [employer] Work Phone: Comment on above: Diagnosis of Diabete s-Adults Non-Diabetic: < or = 5.6% Increased risk for developing diabetes: 5.7-6.4% Diagnostic of diabetes: > or = 6.5%. Monitoring of Diabetes Age (y) Therapeutic Goal (%) Adults: >18 <7.0 Pediatrics: 13-18 <7.5 7-12 <8.0 0- 6 7.5-8.5 [employer]. Diabetes Care 33(S1), Sep 2009. LACTATEon 12-01-2022 Lactate [Moles/Vol] 1.6 mmol/L Normal 0.4 - 2.0 [facility] Comment on above: Result Comment: [place] puncture immediately after or during the administration of Metamizole may lead to falsely low results. Testing should be performed immediately prior to Metamizole dosing. Performed By: #### L ACT ####[facility] [place] [address] Laboratory - Chemistry and C hemistry - challengeon 12-01-2022 Glucose [Mass/Vol] 338 mg/dL above high threshold 74 - 99 DS-Kwyiysz-Xg [place] Work Phone: Albumin BCP dye [Mass/Vol] 2.9 g/dL below low threshold 3.4 - 5.0 CI-Lcycaim-Ef [place] Work Phone: [phone] ALP [Catalytic activity/Vol] 56 U/L 33 - 110 QX-Dgdnsid-Yx [place] Work Phone: ALT With P-5'-P [Catalytic activity/Vol] 10 U/L 7 - 45 MA-Aniejfi-Cd [place] Work Phone: Comment on above: Patients treated wit h Sulfasalazine may generate falsely decreased results for ALT. Anion gap [Moles/Vol] 12 mmol/L 10 - 20 NR-Isycqwj-Dl [place] Work Phone: AST With P-5'-P [Catalytic activity/Vol] 9 U/L 9 - 39 LC-Bssixmj-Vu [place] Work Phone: Bilirubin [Mass/Vol] 0.7 mg/dL 0.0 - 1.2 MP-U rology-Ra [place] Work Phone: Calcium [Mass/Vol] 7.3 mg/dL below low threshold 8.6 - 10.3 NE-Jwnlcwr-Xg [place] Work Phone: Chloride [Moles/Vol] 100 mmol/L 98 - 107 MP-U rology-Ra [place] Work Phone: CO2 [Moles/Vol] 23 mmol/L 21 - 32 MP-Urolog y-Ra [place] Work Phone: Creatinine [Mass/Vol] 1.89 mg/dL above high threshold See Below WU-Hhisgyg-Ay [place] Work Phone: Comment on above: Reference Range: 0.5 0 - 1.05 Glucose [Mass/Vol] 368 mg/dL above high threshold 74 - 99 ZQ-Ooktkuv-Nu [place] Work Phone: [phone] Potassium [Moles/Vol] 4.0 mmol/L 3.5 - 5.3 HB-Bwsoalb-Wl [place] Work Phone: [phone] Protein [Mass/Vol] 5.9 g/dL below low threshold 6.4 - 8.2 DI-Cyscedh-Vo [place] Work Phone: [phone] Sodium [Moles/Vol] 131 mmol/L below low threshold 136 - 145 PD-Fgsaetb-Is [place] Work Phone: [phone] Urea nitrogen [Mass/Vol] 22 mg/dL 6 - 23 HH-Bvlqtso-Al [place] Work Phone: [phone] Glucose [Mass/Vol] 326 mg/dL above high threshold 74 - 99 SH-Cmwwvzt-Oz [place] Work Phone: Glucose [Mass/Vol] 309 mg/dL above high threshold 74 - 99 RA-Ubpsifd-Kc [place] Work Phone: Anion gap [Moles/Vol] 11 mmol/L 10 - 20 YW-Mqewerh-Xb [place] Work Phone: Calcium [Mass/Vol] 7.3 mg/dL below low threshold 8.6 - 10.3 SK-Ibdiplu-Zl [place] Work Phone: Comment on above: Confirmed by repeat analysis Chloride [Moles/Vol] 99 mmol/L 98 - 107 MP-U rology-Ra [place] Work Phone: CO2 [Moles/Vol] 23 mmol/L 21 - 32 MP-Urolog y-Ra [place] Work Phone: [phone] Creatinine [Mass/Vol] 1.90 mg/dL above high threshold See Below NI-Iicldub-Nl [place] Work Phone: [phone] Comment on above: Reference Range: 0.5 0 - 1.05Confirmed by repeat analysis Glucose [Mass/Vol] 349 mg/dL above high threshold 74 - 99 VU-Fzissaz-Uf [place] Work Phone: Potassium [Moles/Vol] 3.9 mmol/L 3.5 - 5.3 PQ-Spnoabe-Mj [place] Work Phone: Sodium [Moles/Vol] 129 mmol/L below low threshold 136 - 145 KG-Avytszu-Mv [place] Work Phone: Comment on above: Confirmed by repeat analysis Urea nitrogen [Mass/Vol] 21 mg/dL 6 - 23 JS-Aubhqci-Ix [place] Work Phone: Glucose [Mass/Vol] 306 mg/dL above high threshold 74 - 99 NK-Dkzthrf-Xg [place] Work Phone: Glucose [Mass/Vol] 259 mg/dL above high threshold 74 - 99 QX-Zckenvu-Xz [place] Work Phone: Glucose [Mass/Vol] 200 mg/dL above high threshold 74 - 99 AY-Tddfcwp-Tq [place] Work Phone: Glucose [Mass/Vol] 192 mg/dL above high threshold 74 - 99 HG-Xnaerdc-Th [place] Work Phone: Glucose [Mass/Vol] 194 mg/dL above high threshold 74 - 99 GT-Rdtebqe-Hy [place] Work Phone: Glucose [Mass/Vol] 177 mg/dL above high threshold 74 - 99 OH-Wgiwxfd-Oe [place] Work Phone: Anion gap [Moles/Vol] 11 mmol/L 10 - 20 SY-Dfuibtl-Zp [place] Work Phone: Calcium [Mass/Vol] 8.1 mg/dL below low threshold 8.6 - 10.3 UV-Cnrqybb-Wp [place] Work Phone: Chloride [Moles/Vol] 97 mmol/L below low threshold 98 - 107 JV-Gditgrg-Nu [place] Work Phone: CO2 [Moles/Vol] 27 mmol/L 21 - 32 MP-Urolog y-Ra [place] Work Phone: Creatinine [Mass/Vol] 1.19 mg/dL above high threshold See Below ZO-Eaxfcnh-Rv [place] Work Phone: Comment on above: Reference Range: 0.5 0 - 1.05 Glucose [Mass/Vol] 161 mg/dL above high threshold 74 - 99 LG-Jzbysat-Ye [place] Work Phone: Potassium [Moles/Vol] 3.5 mmol/L 3.5 - 5.3 DW-Ejpqbbl-Vv [place] Work Phone: Sodium [Moles/Vol] 131 mmol/L below low threshold 136 - 145 OU-Yjmbyej-Ja [place] Work Phone: Urea nitrogen [Mass/Vol] 17 mg/dL 6 - 23 CW-Zljsrwq-Jm [place] Work Phone: Glucose [Mass/Vol] 159 mg/dL above high threshold 74 - 99 KE-Hurcalk-Oq [place] Work Phone: Glucose [Mass/Vol] 164 mg/dL above high threshold 74 - 99 LH-Fdfqeky-Pe [place] Work Phone: Glucose [Mass/Vol] 175 mg/dL above high threshold 74 - 99 VF-Whpgmdq-Au [place] Work Phone: Glucose [Mass/Vol] 168 mg/dL above high threshold 74 - 99 BH-Gsxwjau-Qd [place] Work Phone: Anion gap [Moles/Vol] 11 mmol/L 10 - 20 DW-Adjrejy-Ad [place] Work Phone: Calcium [Mass/Vol] 8.5 mg/dL below low threshold 8.6 - 10.3 YS-Mgvhcwf-Zb [place] Work Phone: Chloride [Moles/Vol] 97 mmol/L below low threshold 98 - 107 XH-Dbnqshv-Cb [place] Work Phone: CO2 [Moles/Vol] 29 mmol/L 21 - 32 -Urolog y-Ra [place] Work Phone: Creatinine [Mass/Vol] 1.00 mg/dL See Below ZB-Abzsdel-Mo [place] Work Phone: Comment on above: Reference Range: 0.5 0 - 1.05 Glucose [Mass/Vol] 216 mg/dL above high threshold 74 - 99 WJ-Gyqozim-Pn [place] Work Phone: Potassium [Moles/Vol] 3.7 mmol/L 3.5 - 5.3 IM-Kmtgbmb-Ld [place] Work Phone: Sodium [Moles/Vol] 133 mmol/L below low threshold 136 - 145 GK-Zbvqcac-Xn [place] Work Phone: Urea nitrogen [Mass/Vol] 16 mg/dL 6 - 23 ZJ-Qtsbnvv-Rw [place] Work Phone: Laboratory - Hematology and Cell countson 12-01-2022 Erythrocyte distribution width (RBC) [Ratio] 13.5 % See Below QP-Suwutgw-Lm [place] Work Phone: Comment on above: Reference Range: 11. 5 - 14.5 Hematocrit (Bld) [Volume fraction] 31.5 % below low threshold See Below KI-Pebktee-Zy [place] Work Phone: Comment on above: Reference Range: 36. 0 - 46.0 Hemoglobin (Bld) [Mass/Vol] 9.7 g/dL below low threshold See Below KF-Roeumdb-Jf [place] Work Phone: Comment on above: Reference Range: 12. 0 - 16.0 MCHC (RBC) [Mass/Vol] 30.8 g/dL below low threshold See Below FC-Ibuhhpa-Gz [place] Work Phone: Comment on above: Reference Range: 32. 0 - 36.0 MCV (RBC) [Entitic vol] 93 fL 80 - 100 XB-Bcpmtpn-Io [place] Work Phone: Platelets (Bld) [#/Vol] 184 10*3/uL 150 - 450 VV-Ynlfpzm-Fd [place] Work Phone: RBC (Bld) [#/Vol] 3.38 {x10E12/L} below low threshold See Below LD-Wrmuaad-Hc [place] Work Phone: Comment on above: Reference Range: 4.0 0 - 5.20 WBC (Bld) [#/Vol] 7.5 10*3/uL 4.4 - 11.3 MP-Uro logy-Ra [place] Work Phone: Lactate, Levelon 12-01-2022 Lactate [Moles/Vol] 1.6 mmol/L 0.4 - 2.0 MP-Ur ology-Ra sohan Work Phone: Comment on above: Venipuncture immedia tely after or during the administration of Metamizole may lead to falsely low results. Testing should be performed immediately prior to Metamizole dosing. No Panel Informationon 12-01 33 {mL/min/1.73m2} Abnormal >90 MP-Uro logy-Ra [place] Work Phone: Comment on above: CALCULATIONS OF SACHIN MATED GFR ARE PERFORMED USING THE 2020 CKD-EPI STUDY REFIT EQUATION WITHOUT THE RACE VARIABLE FOR THE IDMS-TRACEABLE CREATININE METHODS.https://jasn.asnjournals.org/content/early/ASN .1381677353 47 pg/mL 0 - 99 OY-Ptktpvn-Ur sohan Work Phone: Comment on above: . <100 pg/mL - Heart failure [id number] pg/mL - Intermediate probability of acute heart. failure exacerbation. Correlate with clinical. context and patient history. >=300 pg/mL - Heart Failure likely. Correlate with clinical. context and patient history.BNP testing is performed using different testing methodology at [facility] than at other [facility]. Direct result comparisons should only be made within the same method. 33 {mL/min/1.73m2} Abnormal >90 MP-Uro logy-Ra [place] Work Phone: Comment on above: CALCULATIONS OF SACHIN MATED GFR ARE PERFORMED USING THE 2020 CKD-EPI STUDY REFIT EQUATION WITHOUT THE RACE VARIABLE FOR THE IDMS-TRACEABLE CREATININE METHODS.https://jasn.asnjournals.org/content/early/ASN .1174475214 58 {mL/min/1.73m2} Abnormal >90 MP-Uro logy-Ra [place] Work Phone: Comment on above: CALCULATIONS OF SACHIN MATED GFR ARE PERFORMED USING THE 2020 CKD-EPI STUDY REFIT EQUATION WITHOUT THE RACE VARIABLE FOR THE IDMS-TRACEABLE CREATININE METHODS.https://jasn.asnjournals.org/content/earlyASN .9597724183 71 {mL/min/1.73m2} >90 MP-Uro logy-Ra [place] Work Phone: Comment on above: CALCULATIONS OF SACHIN MATED GFR ARE PERFORMED USING THE 2020 CKD-EPI STUDY REFIT EQUATION WITHOUT THE RACE VARIABLE FOR THE IDMS-TRACEABLE CREATININE METHODS.https://jasn.asnjournals.org/content/ASN .9988115290 ARTERIAL BLOOD GASon 023 APPARATUS Cannula Normal [facility] Comment on above: Performed By: #### B LGA2 ####[place] [address] BASE EXCESS-BLOOD 2.5 mmol/L Normal -2.0 - 3.0 [facility] Comment on above: Performed By: #### B LGA2 ####[place] [address] BICARB, CALCULATED 27.9 mmol/L High 22.0 - 26.0 [facility] Comment on above: Performed By: #### B LGA2 ####[place] [id number] FIO2 28 % Normal [facility] Comment on above: Performed By: #### B LGA2 ####[address] [address] OXY HGB 95.5 % Normal 94.0 - 98.0 [facility] Comment on above: Performed By: #### B LGA2 ####[place] [id number] Oxygen (Bld) [Partial pressure] 98 mm[Hg] High 85 - 95 [facility] Comment on above: Performed By: #### B LGA2 ####[address] [address] PATIENT TEMPERATURE 37.0 degrees C Normal S [facility] Comment on above: Result Comment: NOTE : PATIENT RESULTS ARE NOT CORRECTED FOR TEMPERATURE. Performed By: #### B LGA2 ####[address] [address] PCO2 45 mmHg High 38 - 42 [facility] Comment on above: Performed By: #### B LGA2 ####[address] [address] pH (Bld) 7.40 [pH] Normal 7.38 - 7.42 [facility] Comment on above: Performed By: #### B LGA2 ####[place] [address] SO2 99 % Normal 94 - 100 [facility] Comment on above: Performed By: #### B LGA2 ####[place] [id number] Admission Risk Screen - Adul ton 11-30-2022 Admission Risk Screen - Adult Normal [facility] BASIC METABOLIC PANELon 11-06 Anion gap [Moles/Vol] 12 mmol/L Normal 10 - 20 [facility] Comment on above: Performed By: #### B MP ####[address] [address] Calcium [Mass/Vol] 8.8 mg/dL Normal 8.6 - 10.3 [facility] Comment on above: Performed By: #### B MP ####[address] [address] Chloride [Moles/Vol] 97 mmol/L Low 98 - 107 [facility] Comment on above: Performed By: #### B MP ####[address] [address] Creatinine [Mass/Vol] 1.03 mg/dL Normal 0.50 - 1.05 [facility] Comment on above: Performed By: #### B MP ####[address] [address] GFR/1.73 sq M.predicted among non-blacks MDRD (S/P/Bld) [Vol rate/Area] 68 mL/min/{1.73_m2} Normal >90 [facility] Comment on above: Result Comment: CALC ULATIONS OF ESTIMATED GFR ARE PERFORMED USING THE 2020 CKD-EPI STUDY REFIT EQUATION WITHOUT THE RACE VARIABLE FOR THE IDMS-TRACEABLE CREATININE METHODS.https://jasn.asnjournals.org/content/early//ASN .2570041323 Performed By: #### B MP ####[address] [address] Glucose [Mass/Vol] 374 mg/dL High 74 - 99 [facility] Comment on above: Performed By: #### B MP ####[address] [address] HCO3 (Bld) [Moles/Vol] 27 mmol/L Normal 21 - 32 [facility] Comment on above: Performed By: #### B MP ####[address] [address] Potassium [Moles/Vol] 4.1 mmol/L Normal 3.5 - 5.3 [facility] Comment on above: Performed By: #### B MP ####[address] [address] Sodium [Moles/Vol] 132 mmol/L Low 136 - 145 [facility] Comment on above: Performed By: #### B MP ####[address] [address] Urea nitrogen [Mass/Vol] 19 mg/dL Normal 6 - 23 [facility] Comment on above: Performed By: #### B MP ####[address] [address] Anion gap [Moles/Vol] 22 mmol/L High 10 - 20 [facility] Comment on above: Order Comment: Alexandru MATTHEWS to Shy Ortiz , 11/30/2022 15:32 Performed By: #### B MP ####[address] [place] [address] Glucose [Mass/Vol] 649 mg/dL Critically high 74 - 99 [facility] Comment on above: Order Comment: Horvath d- RB to Shy Ortiz , 11/30/2022 15:32 Result Comment: Call ed- RB to Shy Ortiz , 11/30/2022 15:32 Performed By: #### B MP ####[address] [address] Sodium [Moles/Vol] 126 mmol/L Low 136 - 145 [facility] Comment on above: Order Comment: Horvath d- RB to Shy Ortiz , 11/30/2022 15:32 Performed By: #### B MP ####[address] [address] Calcium [Mass/Vol] 9.6 mg/dL Normal 8.6 - 10.3 [facility] Comment on above: Order Comment: Horvath d- RB to Shy Ortiz , 11/30/2022 15:32 Performed By: #### B MP ####[address] [address] Chloride [Moles/Vol] 85 mmol/L Low 98 - 107 [facility] Comment on above: Order Comment: Horvath d- RB to Shy Ortiz , 11/30/2022 15:32 Performed By: #### B MP ####[address] [address] Creatinine [Mass/Vol] 1.18 mg/dL High 0.50 - 1.05 [facility] Comment on above: Order Comment: Horvath d- RB to Shy Ortiz , 11/30/2022 15:32 Performed By: #### B MP ####[address] [address] GFR/1.73 sq M.predicted among non-blacks MDRD (S/P/Bld) [Vol rate/Area] 58 mL/min/{1.73_m2} Abnormal >90 [facility] Comment on above: Order Comment: Horvath d- RB to Shy Ortiz , 11/30/2022 15:32 Result Comment: CALC ULATIONS OF ESTIMATED GFR ARE PERFORMED USING THE 2020 CKD-EPI STUDY REFIT EQUATION WITHOUT THE RACE VARIABLE FOR THE IDMS-TRACEABLE CREATININE METHODS.https://jasn.asnjournals.org/content/early/ASN .8618516564 Performed By: #### B MP ####[address] [address] HCO3 (Bld) [Moles/Vol] 24 mmol/L Normal 21 - 32 [facility] Comment on above: Order Comment: Horvath d- RB to Shy Ortiz , 11/30/2022 15:32 Performed By: #### B MP ####[address] [address] Potassium [Moles/Vol] 4.6 mmol/L Normal 3.5 - 5.3 [facility] Comment on above: Order Comment: Horvath d- RB to Shy Ortiz , 11/30/2022 15:32 Performed By: #### B MP ####[address] [address] Urea nitrogen [Mass/Vol] 23 mg/dL Normal 6 - 23 [facility] Comment on above: Order Comment: Horvath d- RB to Shy Ortiz , 11/30/2022 15:32 Performed By: #### B MP ####[address] [address] BETA-HYDROXYBUTYRATEon 11-30 BETA-HYDROXYBUTYRATE 2.50 mmol/L High 0.02 - 0.[address] [facility] Comment on above: Result Comment: The beta-hydroxybutyrate test performance characteristics have been validated by [facility] laboratory. This test has not been approved by the FDA; however, such approval is not necessary. Performed By: #### B HB2 ####[address] [address] BLOOD CULTURE, BACTERIALon 0 11-30-2022 BLOOD CULTURE, BACTERIAL Normal [facility] Comment on above: Performed By: #### B LDC ####[id number] [place] [address] BLOOD CULTURE, BACTERIAL Normal [facility] Comment on above: Performed By: #### B [facility] ####[id number] [place] [address] Beta Hydroxybutyrate, Serumo n 11-30-2022 Beta hydroxybutyrate [Mass or moles/Vol] 2.50 mmol/L above high threshold See Below NL-Dwpfkwt-Iv denisa Work Phone: Comment on above: Reference Range: 0.0 2 - 0.27 The beta-hydroxybutyrate test performance characteristics have been validated by [facility] laboratory. This test has not been approved by the FDA; however, such approval is not necessary. CBC AND DIFFERENTIALon 11-30 % AUTOMATED IMMATURE GRAN 0.2 % Normal 0.0 - 0.9 [facility] Comment on above: Result Comment: Alla ture Granulocyte Count (IG) includes promyelocytes, myelocytes and metamyelocytes but does not include bands. Percent differential counts (%) should be interpreted in the context of the absolute cell counts (cells/L). Performed By: #### C BCDF ####[address] [address] Basophils (Bld) [#/Vol] 0.09 10*3/uL Normal 0.00 - 0.10 [facility] Comment on above: Performed By: #### C BCDF ####[address] [address] Basophils/100 WBC (Bld) 0.7 % Normal 0.0 - 2.0 [facility] Comment on above: Performed By: #### C BCDF ####[address] [address] Eosinophils (Bld) [#/Vol] 0.01 10*3/uL Normal 0.00 - 0.70 [facility] Comment on above: Performed By: #### C BCDF ####[address] [address] Eosinophils/100 WBC (Bld) 0.1 % Normal 0.0 - 6.0 [facility] Comment on above: Performed By: #### C BCDF ####[address] [address] Erythrocyte distribution width (RBC) [Ratio] 13.2 % Normal 11.5 - 14.5 [facility] Comment on above: Performed By: #### C BCDF ####[address] [address] Hematocrit (Bld) [Volume fraction] 39.9 % Normal 36.0 - 46.0 [facility] Comment on above: Performed By: #### C BCDF ####[address] [address] Hemoglobin (Bld) [Mass/Vol] 13.2 g/dL Normal 12.0 - 16.0 [facility] Comment on above: Performed By: #### C BCDF ####[address] [address] Lymphocytes (Bld) [#/Vol] 1.75 10*3/uL Normal 1.20 - 4.80 [facility] Comment on above: Performed By: #### C BCDF ####[address] [address] Lymphocytes/100 WBC (Bld) 13.8 % Normal 13.0 - 44.0 [facility] Comment on above: Performed By: #### C BCDF ####[address] [address] MCHC (RBC) [Mass/Vol] 33.1 g/dL Normal 32.0 - 36.0 [facility] Comment on above: Performed By: #### C BCDF ####[address] [address] MCV (RBC) [Entitic vol] 88 fL Normal 80 - 100 [facility] Comment on above: Performed By: #### C BCDF ####[address] [address] Monocytes (Bld) [#/Vol] 0.95 10*3/uL Normal 0.10 - 1.00 [facility] Comment on above: Performed By: #### C BCDF ####[address] [address] Monocytes/100 WBC (Bld) 7.5 % Normal 2.0 - 10.0 [facility] Comment on above: Performed By: #### C BCDF ####[address] [address] Neutrophils (Bld) [#/Vol] 9.85 10*3/uL High 1.20 - 7.70 [facility] Comment on above: Result Comment: Perc ent differential counts (%) should be interpreted in the context of the absolute cell counts (cells/L). Performed By: #### C BCDF ####[address] [address] Neutrophils/100 WBC (Bld) 77.7 % Normal 40.0 - 80.0 [facility] Comment on above: Performed By: #### C BCDF ####[address] [address] Platelets (Bld) [#/Vol] 254 10*3/uL Normal 150 - 450 [facility] Comment on above: Performed By: #### C BCDF ####[address] [address] RBC 4.54 x10E12/L Normal 4.00 - 5.20 [facility] Comment on above: Performed By: #### C BCDF ####[address] [address] WBC (Bld) [#/Vol] 12.7 10*3/uL High 4.4 - 11.3 [facility] Comment on above: Performed By: #### C BCDF ####[address] [address] CHEST 1 VIEWon 11-30-2022 CHEST 1 VIEW Normal [facility] CT ABDOMEN AND PELVIS WO CON TRASTon 11-30-2022 CT ABDOMEN AND PELVIS WO CONTRAST Normal [facility] CT Abdomen and Pelvis withou t Contraston 11-30-2022 CT Abdomen and Pelvis WO contrast Normal FM-Qepkfok-On venna Work Phone: Complete Blood Count + Diffe rentialon 11-30-2022 Basophils/100 WBC (Bld) 0.7 % 0.0 - 2.0 NM-Diqfjep-Ql sohan Work Phone: Erythrocyte distribution width (RBC) [Ratio] 13.2 % See Below QX-Utxpyvu-Yp sohan Work Phone: Comment on above: Reference Range: 11. 5 - 14.5 Hematocrit (Bld) [Volume fraction] 39.9 % See Below XD-Khyjmgn-Uz sohan Work Phone: Comment on above: Reference Range: 36. 0 - 46.0 Hemoglobin (Bld) [Mass/Vol] 13.2 g/dL See Below UJ-Cltjdoc-Oz sohan Work Phone: Comment on above: Reference Range: 12. 0 - 16.0 Lymphocytes/100 WBC (Bld) 13.8 % See Below KB-Jkqzugj-Pm sohan Work Phone: Comment on above: Reference Range: 13. 0 - 44.0 MCHC (RBC) [Mass/Vol] 33.1 g/dL See Below BD-Bdgxkcj-Jk sohan Work Phone: Comment on above: Reference Range: 32. 0 - 36.0 MCV (RBC) [Entitic vol] 88 fL 80 - 100 UP-Zvgqybw-Sr venna Work Phone: Monocytes/100 WBC (Bld) 7.5 % 2.0 - 10.0 GW-Lqtvoaj-Rq sohan Work Phone: Neutrophils/100 WBC (Bld) 77.7 % See Below JI-Vdeibpj-Lp sohan Work Phone: Comment on above: Reference Range: 40. 0 - 80.0 Platelets (Bld) [#/Vol] 254 10*3/uL 150 - 450 IO-Kyisexn-Em sohan Work Phone: RBC (Bld) [#/Vol] 4.54 {x10E12/L} See Below [facility]han Work Phone: Comment on above: Reference Range: 4.0 0 - 5.20 WBC (Bld) [#/Vol] 12.7 10*3/uL above high threshold 4.4 - 11.3 [facility] denis Work Phone: Complete Blood Count + Differential 0.09 {x10E9/L} See Below QK-Xiypkoq-Dy venna Work Phone: Comment on above: Reference Range: 0.0 0 - 0.10 Complete Blood Count + Differential 0.01 {x10E9/L} See Below MM-Udqlebv-Of venna Work Phone: Comment on above: Reference Range: 0.0 0 - 0.70 Complete Blood Count + Differential 0.95 {x10E9/L} See Below WI-Fjhuwgp-Dm denis Work Phone: Comment on above: Reference Range: 0.1 0 - 1.00 Complete Blood Count + Differential 1.75 {x10E9/L} See Below SP-Siothbh-Sv Inaika Work Phone: Comment on above: Reference Range: 1.2 0 - 4.80 Complete Blood Count + Differential 9.85 {x10E9/L} above high threshold See Below FG-Wfbflkg-Rl denis Work Phone: Comment on above: Reference Range: 1.2 0 - 7.70 Percent differential counts (%) should be interpreted in the context of the absolute cell counts (cells/L). Complete Blood Count + Differential 0.1 % 0.0 - 6.0 [facility] Inaika Work Phone: Complete Blood Count + Differential 0.2 % 0.0 - 0.9 GH-Oggrfls-Mz Inaika Work Phone: Comment on above: Immature Granulocyte Count (IG) includes promyelocytes, myelocytes and metamyelocytes but does not include bands. Percent differential counts (%) should be interpreted in the context of the absolute cell counts (cells/L). Covid 19 Resultson 3 SARS-CoV-2 (COVID-19) RNA GLENNA+probe Ql (Unsp spec) Normal [facility] Cult, Bloodon 11-30-2022 Bacteria identified Cx Nom (Bld) ZT-Leussdv-Pc Inaikaa Work Phone: Bacteria identified Cx Nom (Bld) [facility] venna Work Phone: Cult, Urineon 11-30-2022 Bacteria identified Cx Nom (U) Abnormal [facility] Inaikaa Work Phone: Discharge Planning Uuox1of 0 11-30-2022 Discharge Planning Note2 Normal [facility] GLUCOSE-POCTon 11-30-2022 Glucose [Mass/Vol] 284 mg/dL High [address] [place] [address] Comment on above: Performed By: #### G MAURA ####[address] [address] Glucose [Mass/Vol] 313 mg/dL High [address] [place] [address] Comment on above: Performed By: #### G MAURA ####[address] [address] Glucose [Mass/Vol] 367 mg/dL High [address] [place] [address] Comment on above: Performed By: #### G MAURA ####[address] [address] Glucose [Mass/Vol] 382 mg/dL High [address] [place] [address] Comment on above: Performed By: #### G MAURA ####[address] [address] Glucose [Mass/Vol] 426 mg/dL High [address] [place] [address] Comment on above: Performed By: #### G MAURA ####[address] [address] Glucose [Mass/Vol] 416 mg/dL High [address] [place] [address] Comment on above: Performed By: #### G MAURA ####[address] [address] HCG,URINEon 11-30-2022 Beta HCG ( test) Ql (U) Negative Normal Negative [facility] Comment on above: Performed By: #### H CGU ####[address] [address] HEPATIC FUNCTION PANELon Albumin [Mass/Vol] 3.8 g/dL Normal 3.4 - 5.0 [facility] Comment on above: Performed By: #### H EPFP ####[address] [address] ALP [Catalytic activity/Vol] 83 U/L Normal 33 - 110 [facility] Comment on above: Performed By: #### H EPFP ####[address] [address] ALT [Catalytic activity/Vol] 11 U/L Normal 7 - 45 [facility] Comment on above: Result Comment: Bridget ents treated with Sulfasalazine may generate falsely decreased results for ALT. Performed By: #### H EPFP ####[address] [address] AST [Catalytic activity/Vol] 6 U/L Low 9 - 39 [facility] Comment on above: Performed By: #### H EPFP ####[address] [address] Bilirubin [Mass/Vol] 1.6 mg/dL High 0.0 - 1.2 [facility] Comment on above: Performed By: #### H EPFP ####[address] [address] Bilirubin.indirect [Mass/Vol] 0.3 mg/dL Normal 0.0 - 0.3 [facility] Comment on above: Performed By: #### H EPFP ####[address] [address] Protein [Mass/Vol] 7.6 g/dL Normal 6.4 - 8.2 [facility] Comment on above: Performed By: #### H EPFP ####[address] [address] Hepatic Function Panelon Albumin BCP dye [Mass/Vol] 3.8 g/dL 3.4 - 5.0 WH-Ojfeqws-Gd venna Work Phone: ALP [Catalytic activity/Vol] 83 U/L 33 - 110 YH-Oikhpev-Wa venna Work Phone: ALT With P-5'-P [Catalytic activity/Vol] 11 U/L 7 - 45 BW-Ksvvtcs-Bg Inaikaa Work Phone: Comment on above: Patients treated wit h Sulfasalazine may generate falsely decreased results for ALT. AST With P-5'-P [Catalytic activity/Vol] 6 U/L below low threshold 9 - 39 MR-Pkditue-Xg Inaika Work Phone: Bilirubin [Mass/Vol] 1.6 mg/dL above high threshold 0.0 - 1.2 YB-Xmkwuba-Dy venna Work Phone: Bilirubin.direct [Mass/Vol] 0.3 mg/dL 0.0 - 0.3 SN-Njahcat-Iy Inaika Work Phone: Protein [Mass/Vol] 7.6 g/dL 6.4 - 8.2 [facility] logy- Inaika Work Phone: INFLUENZA A/B, COVID 2019 PC R,SYMPTOMATICon 11-30-2022 INFLUENZA A, PCR Not detected Normal Not Detected [facility] Comment on above: Result Comment: Resp iratory virus testing is performed routinely by PCR for Influenza A/B and RSV. Not Detected results do not preclude Influenza A/B or RSV infections since the adequacy of sample collection or low viral burden may impact the clinical sensitivity of this test method. Performed By: #### C OINP ####[place] [address] INFLUENZA B, PCR Not detected Normal Not Detected [facility] Comment on above: Result Comment: Resp iratory virus testing is performed routinely by PCR for Influenza A/B and RSV. Not Detected results do not preclude Influenza A/B or RSV infections since the adequacy of sample collection or low viral burden may impact the clinical sensitivity of this test method. Performed By: #### C OINP ####[place] [address] SARS-CoV-2 (COVID-19) RNA GLENNA+probe Ql (Unsp spec) Not detected Normal Not Detected [facility] Comment on above: Result Comment: Shayne s test has received FDA Emergency Use Authorization (EUA) and has beenverified by [facility]. This test is onlyauthorized for the duration of time that circumstances exist to justify theauthorization of the emergency use of in vitro diagnostic tests for thedetection of SARS-CoV-2 virus and/or diagnosis of COVID-19 infection undersection 564(b)(1) of the Act, 21 U.S.C. 360bbb-3(b)(1), unless theauthorization is terminated or revoked sooner.[facility] is certified under CLIA-88 asqualified to perform high complexity testing. Testing is performed in [facility] laboratory located at [address] [place] [address].SARS-CoV-2/Flu/RSV Multiplex Test:Fact sheet for providers: https://www.fda.gov/media/185307/downloadFact sheet for patients: https://www.fda.gov/media/980470/download Performed By: #### C OINP ####[place] [address] Lab Specimen Source Nasal, Nasopharyngeal Normal [facility] Comment on above: Performed By: #### C OINP ####[place] [address] INFLUENZA A/B, COVID 2019 PCR,SYMPTOMATIC Not detected See Below MP-Urology- Ra parry Work Phone: Comment on above: Reference Range: Not Detected.This test has received FDA Emergency Use Authorization (EUA) and has been verified by [facility]. This test is only authorized for the duration of time that circumstances exist to justify the authorization of the emergency use of in vitro diagnostic tests for the detection of SARS-CoV-2 virus and/or diagnosis of COVID-19 infection under section 564(b)(1) of the Act, 21 U.S.C. 360bbb-3(b)(1), unless the authorization is terminated or revoked sooner. [facility] is certified under CLIA-88 as qualified to perform high complexity testing. Testing is performed in the [facility] laboratory located at [address] [place] [address].SARS-CoV-2/Flu/RSV Multiplex Test: Fact sheet for providers: https://www.fda.gov/media/451253/downloadFact sheet for patients: https://www.fda.gov/media/162567/download Reference Range: Not Detected Respiratory virus testing [...] [Moles/Vol] 1.5 mmol/L Normal 0.4 - 2.0 [facility] Comment on above: Result Comment: Paris puncture immediately after or during the administration of Metamizole may lead to falsely low results. Testing should be performed immediately prior to Metamizole dosing. Performed By: #### L ACT ####[place] [address] LIPASEon 11-30-2022 Lipase [Catalytic activity/Vol] 18 U/L Normal 9 - 82 [facility] Comment on above: Result Comment: Paris puncture immediately after or during the administration of Metamizole may lead to falsely low results. Testing should be performed immediately prior to Metamizole dosing. Y-yiicss-i-benzoquinone imine (metabolite of Acetaminophen) will generate erroneously low results in samples for patients that have taken toxic doses of acetaminophen. Performed By: #### L IPAS ####[place] [address] Laboratory - Chemistry and C hemistry - challengeon 11-30-2022 Glucose [Mass/Vol] 197 mg/dL above high threshold 74 - 99 XO-Fdytihl-Wj venna Work Phone: Glucose [Mass/Vol] 293 mg/dL above high threshold 74 - 99 EX-Nuisqpp-Xj venna Work Phone: Glucose [Mass/Vol] 284 mg/dL above high threshold 74 - 99 IQ-Jbvvexa-La venna Work Phone: Glucose [Mass/Vol] 313 mg/dL above high threshold 74 - 99 HU-Umvkmhr-Cn venna Work Phone: Anion gap [Moles/Vol] 12 mmol/L 10 - 20 OJ-Xnxyqwy-Sl venna Work Phone: Calcium [Mass/Vol] 8.8 mg/dL 8.6 - 10.3 -Uro logy-Ra venna Work Phone: Chloride [Moles/Vol] 97 mmol/L below low threshold 98 - 107 CZ-Nhxtwrd-Ss venna Work Phone: CO2 [Moles/Vol] 27 mmol/L 21 - 32 -Urolog y-Ra denisa Work Phone: Creatinine [Mass/Vol] 1.03 mg/dL See Below FY-Kczvliu-Xh venna Work Phone: Comment on above: Reference Range: 0.5 0 - 1.05 Glucose [Mass/Vol] 374 mg/dL above high threshold 74 - 99 XN-Ubnxmnz-Uj venna Work Phone: Potassium [Moles/Vol] 4.1 mmol/L 3.5 - 5.3 FP-Nqkhwnp-Vz venna Work Phone: Sodium [Moles/Vol] 132 mmol/L below low threshold 136 - 145 CS-Fpbqnku-Rc venna Work Phone: Urea nitrogen [Mass/Vol] 19 mg/dL 6 - 23 EM-Jgwfijh-Ya venna Work Phone: Glucose [Mass/Vol] 367 mg/dL above high threshold 74 - 99 NG-Wcjcbdj-Zu venna Work Phone: Glucose [Mass/Vol] 382 mg/dL above high threshold 74 - 99 AH-Spiuwze-Qx denisa Work Phone: Glucose [Mass/Vol] 426 mg/dL above high threshold 74 - 99 CD-Bmnxowl-Gx denisa Work Phone: [phone] Glucose [Mass/Vol] 416 mg/dL above high threshold 74 - 99 KK-Unammft-Lr denisa Work Phone: Base excess Calc (Bld) [Moles/Vol] 2.5 mmol/L -2.0 - 3.0 JH-Btcvtry-Yr denisa Work Phone: CO2 (Bld) [Partial pressure] 45 mm[Hg] above high threshold 38 - 42 RO-Vbgeybt-Dj denisa Work Phone: HCO3 (Bld) [Moles/Vol] 27.9 mmol/L above high threshold See Below NZ-Sewcmku-Tc sohan Work Phone: Comment on above: Reference Range: 22. 0 - 26.0 Oxygen (Bld) [Partial pressure] 98 mm[Hg] above high threshold 85 - 95 KM-Whmntez-Jy sohan Work Phone: Oxyhemoglobin (BldA) [Mass fraction] 95.5 % See Below YD-Jyhxqfs-Cs sohan Work Phone: Comment on above: Reference Range: 94. 0 - 98.0 pH (Bld) 7.40 [pH] See Below DQ-Cgylrav-Oz denisa Work Phone: Comment on above: Reference Range: 7.3 8 - 7.42 Anion gap [Moles/Vol] 22 mmol/L above high threshold 10 - 20 ET-Cpyjcaa-Qb denisa Work Phone: Calcium [Mass/Vol] 9.6 mg/dL 8.6 - 10.3 -Uro logy-Ra denisa Work Phone: Chloride [Moles/Vol] 85 mmol/L below low threshold 98 - 107 VV-Idkqlxb-Mc venna Work Phone: CO2 [Moles/Vol] 24 mmol/L 21 - 32 -Urolog y-Ra sohan Work Phone: Creatinine [Mass/Vol] 1.18 mg/dL above high threshold See Below JQ-Zdazdrm-Jb sohan Work Phone: Comment on above: Reference Range: 0.5 0 - 1.05 Glucose [Mass/Vol] 649 mg/dL Critically high 74 - 99 M L-Vwylntm-Qz venna Work Phone: Comment on above: Called- RB to Shy Santos mitra , 11/30/2022 15:32 Potassium [Moles/Vol] 4.6 mmol/L 3.5 - 5.3 LI-Qblgtkp-Sw venna Work Phone: Sodium [Moles/Vol] 126 mmol/L below low threshold 136 - 145 DK-Bkrulgo-Si venna Work Phone: Urea nitrogen [Mass/Vol] 23 mg/dL 6 - 23 ME-Umyqoza-Eo venna Work Phone: Laboratory - Coagulationon 0 11-30-2022 INR Coag (PPP) [Relative time] 1.1 {INR} 0.9 - 1.1 RK-Bhvovjg-Uu venna Work Phone: PT Coag (PPP) [Time] 12.6 s 9.8 - 13.4 MP-U rology-Ra parry Work Phone: Lactate, Levelon 11-30-2022 Lactate [Moles/Vol] 1.5 mmol/L 0.4 - 2.0 MP-Ur ology-Ra parry Work Phone: Comment on above: Venipuncture immedia tely after or during the administration of Metamizole may lead to falsely low results. Testing should be performed immediately prior to Metamizole dosing. Lipase, Serumon 11-30-2022 Lipase [Catalytic activity/Vol] 18 U/L 9 - 82 RT-Oioehxu-Lt sohan Work Phone: Comment on above: Venipuncture immedia tely after or during the administration of Metamizole may lead to falsely low results. Testing should be performed immediately prior to Metamizole dosing. B-soxgkd-r-benzoquinone imine (metabolite of Acetaminophen) will generate erroneously low results in samples for patients that have taken toxic doses of acetaminophen. Magnesium, Serumon 3 Magnesium [Mass/Vol] 1.88 mg/dL Normal 1.60 - 2.40 MP- Urology-Ra venna Work Phone: Comment on above: Reference Range: 1.6 0 - 2.40 Performed By: #### M G ####[id number] [place] [address] No Panel Informationon 11-30 68 {mL/min/1.73m2} >90 MP-Uro logy-Ra venna Work Phone: Comment on above: CALCULATIONS OF SACHIN MATED GFR ARE PERFORMED USING THE 2020 CKD-EPI STUDY REFIT EQUATION WITHOUT THE RACE VARIABLE FOR THE IDMS-TRACEABLE CREATININE METHODS.https://jasn.asnjournals.org/content/early/ASN .0282459846 Inhaled oxygen concentration 28 % QW-Fguaita-Jh venna Work Phone: Cannula BG-Grpqusg-Dl venna Work Phone: 58 {mL/min/1.73m2} Abnormal >90 MP-Uro logy-Ra venna Work Phone: Comment on above: CALCULATIONS OF SACHIN MATED GFR ARE PERFORMED USING THE 2020 CKD-EPI STUDY REFIT EQUATION WITHOUT THE RACE VARIABLE FOR THE IDMS-TRACEABLE CREATININE METHODS.https://jasn.asnjournals.org/content//ASN .5198138416 Order Reconciliationon 11-30 Order Reconciliation Normal [facility] PT/INRon 11-30-2022 PT Coag (PPP) [Time] 12.6 s Normal 9.8 - 13.4 [facility] Comment on above: Performed By: #### P TINR ####[id number] PT, INR 1.1 Normal 0.9 - 1.1 [facility] Comment on above: Performed By: #### P TINR ####[id number] Patient Profile - Adult v2on 11-30-2022 Patient Profile - Adult v2 Normal [facility] Provider Note - ED v3on 11-06 Provider Note - ED v3 Normal [facility] Radiologyon 11-30-2022 XR Chest Single view Normal MP-U Amisha parry Work Phone: Triage - EDon 11-30-2022 Triage - ED Normal [facility] UA MICROSCOPICon 11-30-2022 BACTERIA 2+ /HPF Abnormal [facility] Comment on above: Performed By: #### U AMIC ####[place] [address] RBC None Normal 0-5 [facility] Comment on above: Performed By: #### U AMIC ####[place] [address] SQUAMOUS EPITH. CELLS 4 /HPF Normal [facility] Comment on above: Performed By: #### U AMIC ####[place] [address] WBC (U) [#/Vol] /uL Abnormal 0-5 [facility] Comment on above: Performed By: #### U AMIC ####[place] [address] WBC CLUMPS OCC Normal [facility] Comment on above: Performed By: #### U AMIC ####[place] [address] URINALYSIS WITH CULTURE IF I NDICATEDon 11-30-2022 Appearance (U) HAZY Normal CLEAR [facility] Comment on above: Performed By: #### U ARFX ####[place] [address] Bilirubin Ql (U) Negative Normal NEGATIVE [facility] Comment on above: Performed By: #### U ARFX ####[place] [address] Color (U) Yellow Normal STRAW,YELLO W [facility] Comment on above: Performed By: #### U ARFX ####[place] [address] Glucose Ql (U) >=500(3+) Abnormal NEGATIVE [facility] Comment on above: Performed By: #### U ARFX ####[place] [address] Hemoglobin Ql (U) SMALL(1+) Abnormal NEGATIVE [facility] Comment on above: Performed By: #### U ARFX ####[place] [address] Ketones Ql (U) 20(1+) Abnormal NEGATIVE [facility] Comment on above: Performed By: #### U ARFX ####[place] [address] Leukocyte esterase Test strip Ql (U) LARGE(3+) Abnormal NEGATIVE [facility] Comment on above: Performed By: #### U ARFX ####[place] [address] Nitrite Ql (U) Negative Normal NEGATIVE [facility] Comment on above: Performed By: #### U ARFX ####[place] [address] pH (U) 6.0 [pH] Normal 5.0 - 8.0 [facility] Comment on above: Performed By: #### U ARFX ####[place] [address] Protein Ql (U) 30(1+) Abnormal NEGATIVE [facility] Comment on above: Performed By: #### U ARFX ####[place] [address] Specific gravity (U) [Rel density] 1.026 Normal 1.005 - 1.035 [facility] Comment on above: Performed By: #### U ARFX ####[address] [place] [address] Urobilinogen (U) [Mass/Vol] mg/dL Normal 0.0 - 1.9 [facility] Comment on above: Performed By: #### U ARFX ####[address] [address] Color (U) Yellow See Below QI-Ycvzqeh-Vb venna Work Phone: Comment on above: Reference Range: STR AW,YELLOW Glucose Ql (U) >=500(3+) Abnormal NEGATIVE MP-Urology -Ra venna Work Phone: Ketones Ql (U) 20(1+) Abnormal NEGATIVE MP-Urology -Ra venna Work Phone: Leukocyte esterase Test strip Ql (U) LARGE(3+) Abnormal NEGATIVE DA-Xvwkwqp-Ge venna Work Phone: pH (U) 6.0 [pH] 5.0 - 8.0 VJ-Acushja-Nt venna Work Phone: Protein (U) [Mass/Vol] 30(1+) Abnormal NEGATIVE ZD-Tjgkcok-Eo venna Work Phone: RBC (U) [#/Vol] SMALL(1+) Abnormal NEGATIVE MP-Urolog y-Ra venna Work Phone: Specific gravity (U) [Rel density] 1.026 1 See Below ZD-Jbscfnf-Tl venna Work Phone: Comment on above: Reference Range: 1.0 05 - 1.035 URINALYSIS WITH CULTURE IF INDICATED Negative NEGATIVE MP-Urology- Ra venna Work Phone: URINALYSIS WITH CULTURE IF INDICATED <2.0 0.0 - 1.9 MP-Urology- Ra venna Work Phone: URINALYSIS WITH CULTURE IF INDICATED HAZY CLEAR MP-Urology- Ra venna Work Phone: URINE CULTURE,BACTERIALon URINE CULTURE,BACTERIAL Normal [facility] Comment on above: Performed By: #### U RINC ####[id number] [place] [address] Urinalysis, Microscopicon Urinalysis, Microscopic 2+ Abnormal MA-Trighnx-Nx venna Work Phone: Urinalysis, Microscopic 4 {/HPF} SD-Amujtwu-Sj venna Work Phone: [phone] Urinalysis, Microscopic None 0-5 XN-Exiguit-Zb venna Work Phone: [phone] Urinalysis, Microscopic OCC DN-Xlizunt-Nc venna Work Phone: [phone] Urinalysis, Microscopic >182 Abnormal 0-5 ZS-Hjzyorf-Ei venna Work Phone: Urine Teston 11-30 HCG ( test) Ql (U) Negative Negative AE-Pqtoydr-Yt venna Work Phone: CALCULI [STONE] ANALYSISon 0 11-22-2022 CALCULI COMPOSITION See Note Normal [facility] Comment on above: Result Comment: Calc michela [...] composition determined by FTIR analysis. Performed By: [place] [address] Medical Anthropology Director: Satish Angel MD, PhD Performed By: #### C ALCU #### [facility] [address] [facility], [place] [address] DESCRIPTION See Note Normal [facility] Comment on above: Result Comment: Spec imen consists of two brown calculi fragments. The total weight is 47 mg. Performed By: #### C ALCU #### [address] [facility], [place] [address] WEIGHT 47 mg Normal [facility] Comment on above: Performed By: #### C ALCU #### [address] [facility], [place] [address] Laboratory - Pathologyon Composition Nom (Stone) See Note HN-Sqphmbf-Dv sohan Work Phone: Comment on above: Calculi composed shan teo ofcalcium oxalate monohydrate.INTERPRETIVE INFORMATION: Calculi (Stone) analysisCalculi are the products of physiological processes that yield crystalline compounds in a matrix of biological compounds and blood. Matrix components are not reported. The clinically significant crystalline components identified in calculi specimens are reported. Gross description may not be consistent with composition determined by FTIR analysis.Performed By: [facility] [place] [id number] Director: Satish Angel MD, PhD Laboratory - Specimen inform ation 11-18-2022 Appearance (Stone) See Note [employer] log[employer]Sh[employer]agr [employer]ach[employer] Work Phone: Comment on above: Specimen consists of two brown calculi fragments.The total weight is 47 mg. Specimen weight (Unsp spec) 47 mg WJ-Vyorzgn-Gh Travelata Work Phone: BASIC METABOLIC PANELon 11-05 Anion gap [Moles/Vol] 9 mmol/L Low 10 - 20 [facility] Comment on above: Performed By: #### B MP ####[address] [address] Calcium [Mass/Vol] 7.8 mg/dL Low 8.6 - 10.3 [facility] Comment on above: Performed By: #### B MP ####[address] [address] Chloride [Moles/Vol] 100 mmol/L Normal 98 - 107 [facility] Comment on above: Performed By: #### B MP ####[address] [address] Creatinine [Mass/Vol] 1.43 mg/dL High 0.50 - 1.05 [facility] Comment on above: Performed By: #### B MP ####[address] [address] GFR/1.73 sq M.predicted among non-blacks MDRD (S/P/Bld) [Vol rate/Area] 46 mL/min/{1.73_m2} Abnormal >90 [facility] Comment on above: Result Comment: CALC ULATIONS OF ESTIMATED GFR ARE PERFORMED USING THE 2020 CKD-EPI STUDY REFIT EQUATION WITHOUT THE RACE VARIABLE FOR THE IDMS-TRACEABLE CREATININE METHODS.https://jasn.asnjournals.org/content//ASN .5349259778 Performed By: #### B MP ####[address] [address] Glucose [Mass/Vol] 62 mg/dL Low 74 - 99 [facility] Comment on above: Performed By: #### B MP ####[address] [address] HCO3 (Bld) [Moles/Vol] 30 mmol/L Normal 21 - 32 [facility] Comment on above: Performed By: #### B MP ####[address] [address] Potassium [Moles/Vol] 4.0 mmol/L Normal 3.5 - 5.3 [facility] Comment on above: Performed By: #### B MP ####[address] [address] Sodium [Moles/Vol] 135 mmol/L Low 136 - 145 [facility] Comment on above: Performed By: #### B MP ####[address] [address] Urea nitrogen [Mass/Vol] 12 mg/dL Normal 6 - 23 [facility] Comment on above: Performed By: #### B MP ####[address] [address] CBCon 11-16-2022 Erythrocyte distribution width (RBC) [Ratio] 14.3 % Normal 11.5 - 14.5 [facility] Comment on above: Performed By: #### C BC ####[address] [address] Hematocrit (Bld) [Volume fraction] 27.7 % Low 36.0 - 46.0 [facility] Comment on above: Performed By: #### C BC ####[address] [address] Hemoglobin (Bld) [Mass/Vol] 8.8 g/dL Low 12.0 - 16.0 [facility] Comment on above: Performed By: #### C BC ####[address] [address] MCHC (RBC) [Mass/Vol] 31.8 g/dL Low 32.0 - 36.0 [facility] Comment on above: Performed By: #### C BC ####[address] [address] MCV (RBC) [Entitic vol] 93 fL Normal 80 - 100 [facility] Comment on above: Performed By: #### C BC ####[address] [address] Platelets (Bld) [#/Vol] 416 10*3/uL Normal 150 - 450 [facility] Comment on above: Performed By: #### C BC ####[address] [address] RBC 2.99 x10E12/L Low 4.00 - 5.20 [facility] Comment on above: Performed By: #### C BC ####[address] [address] WBC (Bld) [#/Vol] 10.5 10*3/uL Normal 4.4 - 11.3 [facility] Comment on above: Performed By: #### C BC ####[address] [address] Daily Progress Note-Nephrolo gyon 11-16-2022 Daily Progress Note-Nephrology Normal [facility] Discharge [id number] Discharge Profile2 Normal [facility] GLUCOSE-[facility] 11-16-2022 Glucose [Mass/Vol] 96 mg/dL Normal 74 - 99 [facility] Comment on above: Performed By: #### G MAURA ####[address] [address] Glucose [Mass/Vol] 97 mg/dL Normal 74 - 99 [facility] Comment on above: Performed By: #### G MAURA ####[address] [place] [address] Laboratory - Chemistry and C hemistry - challengeon 11-16-2022 Glucose [Mass/Vol] 96 mg/dL 74 - 99 MP-Uro logy-As [place] Work Phone: [phone] Glucose [Mass/Vol] 97 mg/dL 74 - 99 MP-Uro logy-[place] Work Phone: [phone] Anion gap [Moles/Vol] 9 mmol/L below low threshold 10 - 20 HT-Qcbuyvp-Ou h[place] Work Phone: [phone] Calcium [Mass/Vol] 7.8 mg/dL below low threshold 8.6 - 10.3 VD-Djtvfck-Pn hland Work Phone: Chloride [Moles/Vol] 100 mmol/L 98 - 107 MP-U rology-As [place] Work Phone: CO2 [Moles/Vol] 30 mmol/L 21 - 32 MP-Urolog y-As [place] Work Phone: Creatinine [Mass/Vol] 1.43 mg/dL above high threshold See Below DM-Djcxami-Yy h[place] Work Phone: Comment on above: Reference Range: 0.5 0 - 1.05 Glucose [Mass/Vol] 62 mg/dL below low threshold 74 - 99 IM-Issrafs-Mj h[place] Work Phone: [phone] Potassium [Moles/Vol] 4.0 mmol/L 3.5 - 5.3 OP-Iorpbag-Pw [place] Work Phone: Sodium [Moles/Vol] 135 mmol/L below low threshold 136 - 145 RQ-Inrzdef-Az [place] Work Phone: Urea nitrogen [Mass/Vol] 12 mg/dL 6 - 23 JY-Cqkikxv-Ip [place] Work Phone: Laboratory - Hematology and Cell countson 11-16-2022 Erythrocyte distribution width (RBC) [Ratio] 14.3 % See Below ZL-Ouzvorl-Gw [place] Work Phone: Comment on above: Reference Range: 11. 5 - 14.5 Hematocrit (Bld) [Volume fraction] 27.7 % below low threshold See Below GA-Xognglb-Ap [place] Work Phone: Comment on above: Reference Range: 36. 0 - 46.0 Hemoglobin (Bld) [Mass/Vol] 8.8 g/dL below low threshold See Below JO-Crimfwh-Au [place] Work Phone: Comment on above: Reference Range: 12. 0 - 16.0 MCHC (RBC) [Mass/Vol] 31.8 g/dL below low threshold See Below NT-Rlocwqf-Jk h[place] Work Phone: Comment on above: Reference Range: 32. 0 - 36.0 MCV (RBC) [Entitic vol] 93 fL 80 - 100 AU-Kmkufas-Ia [place] Work Phone: Platelets (Bld) [#/Vol] 416 10*3/uL 150 - 450 VY-Efkrfos-Rk hland Work Phone: RBC (Bld) [#/Vol] 2.99 {x10E12/L} below low threshold See Below NT-Iszpfao-Su [place] Work Phone: Comment on above: Reference [...] RACE VARIABLE FOR THE IDMS-TRACEABLE CREATININE METHODS.https://jasn.asnjournals.org/content//ASN .5163246993 Order Reconciliationon 11-16 Order Reconciliation Normal [facility] BASIC METABOLIC PANELon 11-05 Anion gap [Moles/Vol] 9 mmol/L Low 10 - 20 [facility] Comment on above: Performed By: #### B MP ####[address] [address] Calcium [Mass/Vol] 8.0 mg/dL Low 8.6 - 10.3 [facility] Comment on above: Performed By: #### B MP ####[address] [address] Chloride [Moles/Vol] 104 mmol/L Normal 98 - 107 [facility] Comment on above: Performed By: #### B MP ####[address] [address] Creatinine [Mass/Vol] 1.59 mg/dL High 0.50 - 1.05 [facility] Comment on above: Performed By: #### B MP ####[address] [address] GFR/1.73 sq M.predicted among non-blacks MDRD (S/P/Bld) [Vol rate/Area] 41 mL/min/{1.73_m2} Abnormal >90 [facility] Comment on above: Result Comment: CALC ULATIONS OF ESTIMATED GFR ARE PERFORMED USING THE 2020 CKD-EPI STUDY REFIT EQUATION WITHOUT THE RACE VARIABLE FOR THE IDMS-TRACEABLE CREATININE METHODS.https://jasn.asnjournals.org/content//ASN .1988963606 Performed By: #### B MP ####[address] [address] Glucose [Mass/Vol] 110 mg/dL High 74 - 99 [facility] Comment on above: Performed By: #### B MP ####[address] [address] HCO3 (Bld) [Moles/Vol] 30 mmol/L Normal 21 - 32 [facility] Comment on above: Performed By: #### B MP ####[address] [address] Potassium [Moles/Vol] 4.1 mmol/L Normal 3.5 - 5.3 [facility] Comment on above: Performed By: #### B MP ####[address] [address] Sodium [Moles/Vol] 139 mmol/L Normal 136 - 145 [facility] Comment on above: Performed By: #### B MP ####[address] [address] Urea nitrogen [Mass/Vol] 15 mg/dL Normal 6 - 23 [facility] Comment on above: Performed By: #### B MP ####[address] [address] CBCon 11-15-2022 Erythrocyte distribution width (RBC) [Ratio] 14.3 % Normal 11.5 - 14.5 [facility] Comment on above: Performed By: #### C BC ####[address] [address] Hematocrit (Bld) [Volume fraction] 27.7 % Low 36.0 - 46.0 [facility] Comment on above: Performed By: #### C BC ####[address] [address] Hemoglobin (Bld) [Mass/Vol] 8.9 g/dL Low 12.0 - 16.0 [facility] Comment on above: Performed By: #### C BC ####[address] [address] MCHC (RBC) [Mass/Vol] 32.1 g/dL Normal 32.0 - 36.0 [facility] Comment on above: Performed By: #### C BC ####[address] [address] MCV (RBC) [Entitic vol] 92 fL Normal 80 - 100 [facility] Comment on above: Performed By: #### C BC ####[address] [address] Platelets (Bld) [#/Vol] 367 10*3/uL Normal 150 - 450 [facility] Comment on above: Performed By: #### C BC ####[address] [address] RBC 3.02 x10E12/L Low 4.00 - 5.20 [facility] Comment on above: Performed By: #### C BC ####[address] [address] WBC (Bld) [#/Vol] 9.7 10*3/uL Normal 4.4 - 11.3 [facility] Comment on above: Performed By: #### C BC ####[address] [address] Daily Progress Note-Medicine on 11-15-2022 Daily Progress Note-Medicine Normal [facility] Daily Progress Note-Nephrolo gyon 11-15-2022 Daily Progress Note-Nephrology Normal [facility] GLUCOSE-POCTon 11-15-2022 Glucose [Mass/Vol] 139 mg/dL High 74 - 99 [facility] Comment on above: Performed By: #### G MAURA ####[address] [address] Glucose [Mass/Vol] 112 mg/dL High 74 - 99 [facility] Comment on above: Performed By: #### G MAURA ####[address] [address] Glucose [Mass/Vol] 88 mg/dL Normal 74 - 99 [facility] Comment on above: Performed By: #### G MAURA ####[id number] Laboratory - Chemistry and C hemistry - challengeon 11-15-2022 Glucose [Mass/Vol] 139 mg/dL above high threshold 74 - 99 BD-Lhlsyke-Fw [place] Work Phone: Glucose [Mass/Vol] 112 mg/dL above high threshold 74 - 99 ZB-Xjcobad-Qi [place] Work Phone: Glucose [Mass/Vol] 88 mg/dL 74 - 99 MP-Uro logy-[place] Work Phone: Anion gap [Moles/Vol] 9 mmol/L below low threshold 10 - 20 VA-Tgxbvuc-Cj [place] Work Phone: Calcium [Mass/Vol] 8.0 mg/dL below low threshold 8.6 - 10.3 YR-Hpdhkth-Tb [place] Work Phone: Chloride [Moles/Vol] 104 mmol/L 98 - 107 MP-U rology-As [place] Work Phone: CO2 [Moles/Vol] 30 mmol/L 21 - 32 MP-Urolog y-[place] Work Phone: Creatinine [Mass/Vol] 1.59 mg/dL above high threshold See Below ZC-Fqrxlle-Tf [place] Work Phone: Comment on above: Reference Range: 0.5 0 - 1.05 Glucose [Mass/Vol] 110 mg/dL above high threshold 74 - 99 VK-Wogxfxo-Jk [place] Work Phone: Potassium [Moles/Vol] 4.1 mmol/L 3.5 - 5.3 JG-Ubwexge-Jy [place] Work Phone: Sodium [Moles/Vol] 139 mmol/L 136 - 145 MP-Uro logy-[place] Work Phone: Urea nitrogen [Mass/Vol] 15 mg/dL 6 - 23 TG-Vkmtvdm-Py [place] Work Phone: Laboratory - Hematology and Cell countson 11-15-2022 Erythrocyte distribution width (RBC) [Ratio] 14.3 % See Below LY-Zapssqh-Ds hland Work Phone: Comment on above: Reference Range: 11. 5 - 14.5 Hematocrit (Bld) [Volume fraction] 27.7 % below low threshold See Below XL-Izgiiuu-Jn h[place] Work Phone: Comment on above: Reference Range: 36. 0 - 46.0 Hemoglobin (Bld) [Mass/Vol] 8.9 g/dL below low threshold See Below ZJ-Uwjxzqf-Fi h[place] Work Phone: Comment on above: Reference Range: 12. 0 - 16.0 MCHC (RBC) [Mass/Vol] 32.1 g/dL See Below BX-Mnipxvd-Ok [place] Work Phone: Comment on above: Reference Range: 32. 0 - 36.0 MCV (RBC) [Entitic vol] 92 fL 80 - 100 AW-Kegexgo-Aa [place] Work Phone: [phone] Platelets (Bld) [#/Vol] 367 10*3/uL 150 - 450 WR-Sygnauo-Dg hland Work Phone: [phone] RBC (Bld) [#/Vol] 3.02 {x10E12/L} below low threshold See Below YN-Cireuos-Rn hland Work Phone: [phone] Comment on above: Reference Range: 4.0 0 - 5.20 WBC (Bld) [#/Vol] 9.7 10*3/uL 4.4 - 11.3 MP-Uro logy-[place] Work Phone: [phone] Panel Informationon 11-15 41 {mL/min/1.73m2} Abnormal >90 MP-Uro logy-[place] Work Phone: [phone] Comment on above: CALCULATIONS OF SACHIN MATED GFR ARE PERFORMED USING THE 2020 CKD-EPI STUDY REFIT EQUATION WITHOUT THE RACE VARIABLE FOR THE IDMS-TRACEABLE CREATININE METHODS.https://jasn.asnjournals.org/content/early/ASN .2111161139 BASIC METABOLIC PANELon 11-05 Creatinine [Mass/Vol] 1.88 mg/dL High 0.50 - 1.05 [facility] Comment on above: Result Comment: Conf irmed by repeat analysis Performed By: #### B MP ####[address] [place] [address] GFR/1.73 sq M.predicted among non-blacks MDRD (S/P/Bld) [Vol rate/Area] 33 mL/min/{1.73_m2} Abnormal >90 [facility] Comment on above: Result Comment: CALC ULATIONS OF ESTIMATED GFR ARE PERFORMED USING THE 2020 CKD-EPI STUDY REFIT EQUATION WITHOUT THE RACE VARIABLE FOR THE IDMS-TRACEABLE CREATININE METHODS.https://jasn.asnjournals.org/content/early/ASN .7418219270 Performed By: #### B MP ####[address] [address] Anion gap [Moles/Vol] 11 mmol/L Normal 10 - 20 [facility] Comment on above: Performed By: #### B MP ####[address] [address] Calcium [Mass/Vol] 8.0 mg/dL Low 8.6 - 10.3 [facility] Comment on above: Performed By: #### B MP ####[address] [address] Chloride [Moles/Vol] 104 mmol/L Normal 98 - 107 [facility] Comment on above: Performed By: #### B MP ####[address] [address] Glucose [Mass/Vol] 137 mg/dL High 74 - 99 [facility] Comment on above: Performed By: #### B MP ####[address] [address] HCO3 (Bld) [Moles/Vol] 26 mmol/L Normal 21 - 32 [facility] Comment on above: Performed By: #### B MP ####[address] [address] Potassium [Moles/Vol] 4.1 mmol/L Normal 3.5 - 5.3 [facility] Comment on above: Performed By: #### B MP ####[address] [address] Sodium [Moles/Vol] 137 mmol/L Normal 136 - 145 [facility] Comment on above: Performed By: #### B MP ####[address] [address] Urea nitrogen [Mass/Vol] 23 mg/dL Normal 6 - 23 [facility] Comment on above: Performed By: #### B MP ####[address] [address] CBCon 11-14-2022 Erythrocyte distribution width (RBC) [Ratio] 13.9 % Normal 11.5 - 14.5 [facility] Comment on above: Performed By: #### C BC ####[address] [address] Hematocrit (Bld) [Volume fraction] 27.9 % Low 36.0 - 46.0 [facility] Comment on above: Performed By: #### C BC ####[address] [address] Hemoglobin (Bld) [Mass/Vol] 9.2 g/dL Low 12.0 - 16.0 [facility] Comment on above: Performed By: #### C BC ####[address] [address] MCHC (RBC) [Mass/Vol] 33.0 g/dL Normal 32.0 - 36.0 [facility] Comment on above: Performed By: #### C BC ####[address] [address] MCV (RBC) [Entitic vol] 91 fL Normal 80 - 100 [facility] Comment on above: Performed By: #### C BC ####[address] [address] Platelets (Bld) [#/Vol] 349 10*3/uL Normal 150 - 450 [facility] Comment on above: Performed By: #### C BC ####[address] [address] RBC 3.07 x10E12/L Low 4.00 - 5.20 [facility] Comment on above: Performed By: #### C BC ####[address] [address] WBC (Bld) [#/Vol] 10.0 10*3/uL Normal 4.4 - 11.3 [facility] Comment on above: Performed By: #### C BC ####[address] [address] Daily Progress Note-General Internal Medicineon 11-14-2022 Daily Progress Note-General Internal Medicine Normal [facility] Daily Progress Note-Nephrolo gyon 11-14-2022 Daily Progress Note-Nephrology Normal [facility] Daily Progress Note-Urologyo n 11-14-2022 Daily Progress Note-Urology Normal [facility] GLUCOSE-POCTon 11-14-2022 Glucose [Mass/Vol] 184 mg/dL High 74 - 99 [facility] Comment on above: Performed By: #### G MAURA ####[address] [place] [address] Glucose [Mass/Vol] 105 mg/dL High 74 - 99 [facility] Comment on above: Performed By: #### G MAURA ####[address] [place] [address] Glucose [Mass/Vol] 118 mg/dL High 74 - 99 [facility] Comment on above: Performed By: #### G MAURA ####[address] [address] Glucose [Mass/Vol] 128 mg/dL High 74 - 99 [facility] Comment on above: Performed By: #### G MAURA ####[address] [address] Laboratory - Chemistry and C hemistry - challengeon 11-14-2022 Glucose [Mass/Vol] 184 mg/dL above high threshold 74 - 99 WZ-Ddeqdeh-[place]o [place] Work Phone: Glucose [Mass/Vol] 105 mg/dL above high threshold 74 - 99 CH-Ujdtnqi-Rz [place] Work Phone: Glucose [Mass/Vol] 118 mg/dL above high threshold 74 - 99 HA-Jnnixgj-To [place] Work Phone: Glucose [Mass/Vol] 128 mg/dL above high threshold 74 - 99 ML-Hodrvlt-Kv [place] Work Phone: Anion gap [Moles/Vol] 11 mmol/L 10 - 20 WM-Ghyglvr-Qb [place] Work Phone: Calcium [Mass/Vol] 8.0 mg/dL below low threshold 8.6 - 10.3 TG-Aqtnepe-Co [place] Work Phone: Chloride [Moles/Vol] 104 mmol/L 98 - 107 MP-U rology-[place] Work Phone: CO2 [Moles/Vol] 26 mmol/L 21 - 32 MP-Urolog y-[place] Work Phone: Creatinine [Mass/Vol] 1.88 mg/dL above high threshold See Below HG-Hgdrqcb-Ah [place] Work Phone: Comment on above: Reference Range: 0.5 0 - 1.05Confirmed by repeat analysis Glucose [Mass/Vol] 137 mg/dL above high threshold 74 - 99 EL-Zaashvq-Rv [place] Work Phone: Potassium [Moles/Vol] 4.1 mmol/L 3.5 - 5.3 TV-Pppofel-Pz [place] Work Phone: Sodium [Moles/Vol] 137 mmol/L 136 - 145 MP-Uro logy-[place] Work Phone: Urea nitrogen [Mass/Vol] 23 mg/dL 6 - 23 GD-Nbqbgfi-Il [place] Work Phone: Laboratory - Hematology and Cell countson 11-14-2022 Erythrocyte distribution width (RBC) [Ratio] 13.9 % See Below UP-Badiylk-Gh [place] Work Phone: Comment on above: Reference Range: 11. 5 - 14.5 Hematocrit (Bld) [Volume fraction] 27.9 % below low threshold See Below QP-Sxposdv-Ks h[place] Work Phone: Comment on above: Reference Range: 36. 0 - 46.0 Hemoglobin (Bld) [Mass/Vol] 9.2 g/dL below low threshold See Below XR-Hvalzya-Fs h[place] Work Phone: Comment on above: Reference Range: 12. 0 - 16.0 MCHC (RBC) [Mass/Vol] 33.0 g/dL See Below IE-Dcucyli-Bl [place] Work Phone: Comment on above: Reference Range: 32. 0 - 36.0 MCV (RBC) [Entitic vol] 91 fL 80 - 100 CI-Ttememj-Me [place] Work Phone: [phone] Platelets (Bld) [#/Vol] 349 10*3/uL 150 - 450 KM-Zcehtum-Di [place] Work Phone: [phone] RBC (Bld) [#/Vol] 3.07 {x10E12/L} below low threshold See Below YQ-Bdbglax-Np [place] Work Phone: [phone] Comment on above: Reference Range: 4.0 0 - 5.20 WBC (Bld) [#/Vol] 10.0 10*3/uL 4.4 - 11.3 MP-Ur ology-[place] Work Phone: [phone] Panel Informationon 11-14 Normal ZU-Wwcgmwk-Pd [place] Work Phone: [phone] IR-Pjwkajl-Kh [place] Work Phone: [phone] 33 {mL/min/1.73m2} Abnormal >90 MP-Uro logy-[place] Work Phone: [phone] Comment on above: CALCULATIONS OF SACHIN MATED GFR ARE PERFORMED USING THE 2020 CKD-EPI STUDY REFIT EQUATION WITHOUT THE RACE VARIABLE FOR THE IDMS-TRACEABLE CREATININE METHODS.https://jasn.asnjournals.org/content//ASN .4931241471 Preop Checkliston 11-14-2022 Preop Checklist Normal [facility] Surgical Pathology Depar tmenton 11-14-2022 [facility] Surgical Pathology Department Name JADA GRANADOS Pathologist: MARIAH VERA DO Date of Procedure: 11/14/2022 Date Received: 11/17/2022 Date Reported 11/18/2022 Submitting Physician: CHRISTINA MCNALLY MD, MPH [place] [facility] [place] To[place]Referring/Attending: STEVE WALL DO Other External # FINAL DIAGNOSIS A. RIGHT URETERAL STONE: - CALCULI DESCRIBED BELOW, GROSS DIAGNOSIS ONLY - SEE SEPARATE STONE ANALYSIS REPORT Electronically Signed Out By MARIAH VERA DO/MEK By the signature on this report, the individual or group listed as making the Final Interpretation/Diagnosis certifies that they have reviewed this case. Diagnostic interpretation performed at [facility] [address] [place] [address] Clinical History: Physician Contact Number: [phone] Fixative [...] last hospitalization in October Patient was at [facility] emergency room last /Thursday. She tested [...] is for gross examination only. RMP rmp/11/17/2022 [facility] Department of Pathology [address] [place] [address] Normal [facility] Comment on above: Performed By: #### U [facility] #### [facility] Surgical Pathology Department [address] [facility] [address] CBCon 11-13-2022 Erythrocyte distribution width (RBC) [Ratio] 13.7 % Normal 11.5 - 14.5 [facility] Comment on above: Performed By: #### C BC ####[address] [address] Hematocrit (Bld) [Volume fraction] 30.3 % Low 36.0 - 46.0 [facility] Comment on above: Performed By: #### C BC ####[address] [address] Hemoglobin (Bld) [Mass/Vol] 10.0 g/dL Low 12.0 - 16.0 [facility] Comment on above: Performed By: #### C BC ####[address] [address] MCHC (RBC) [Mass/Vol] 33.0 g/dL Normal 32.0 - 36.0 [facility] Comment on above: Performed By: #### C BC ####[address] [address] MCV (RBC) [Entitic vol] 90 fL Normal 80 - 100 [facility] Comment on above: Performed By: #### C BC ####[address] [address] Platelets (Bld) [#/Vol] 277 10*3/uL Normal 150 - 450 [facility] Comment on above: Performed By: #### C BC ####[address] [address] RBC 3.38 x10E12/L Low 4.00 - 5.20 [facility] Comment on above: Performed By: #### C BC ####[address] [address] WBC (Bld) [#/Vol] 9.2 10*3/uL Normal 4.4 - 11.3 [facility] Comment on above: Performed By: #### C BC ####[address] [id number] COMPREHENSIVE PANELon 2022 Albumin [Mass/Vol] 2.6 g/dL Low 3.4 - 5.0 [facility] Comment on above: Performed By: #### C MP ####[address] [address] ALP [Catalytic activity/Vol] 85 U/L Normal 33 - 110 [facility] Comment on above: Performed By: #### C MP ####[address] [address] ALT [Catalytic activity/Vol] 24 U/L Normal 7 - 45 [facility] Comment on above: Result Comment: Bridget ents treated with Sulfasalazine may generate falsely decreased results for ALT. Performed By: #### C MP ####[address] [address] Anion gap [Moles/Vol] 13 mmol/L Normal 10 - 20 [facility] Comment on above: Performed By: #### C MP ####[address] [address] AST [Catalytic activity/Vol] 13 U/L Normal 9 - 39 [facility] Comment on above: Performed By: #### C MP ####[address] [address] Bilirubin [Mass/Vol] 0.7 mg/dL Normal 0.0 - 1.2 [facility] Comment on above: Performed By: #### C MP ####[address] [address] Calcium [Mass/Vol] 7.8 mg/dL Low 8.6 - 10.3 [facility] Comment on above: Performed By: #### C MP ####[address] [address] Chloride [Moles/Vol] 97 mmol/L Low 98 - 107 [facility] Comment on above: Performed By: #### C MP ####[address] [address] Creatinine [Mass/Vol] 2.84 mg/dL High 0.50 - 1.05 [facility] Comment on above: Performed By: #### C MP ####[address] [address] GFR/1.73 sq M.predicted among non-blacks MDRD (S/P/Bld) [Vol rate/Area] 20 mL/min/{1.73_m2} Abnormal >90 [facility] Comment on above: Result Comment: CALC ULATIONS OF ESTIMATED GFR ARE PERFORMED USING THE 2020 CKD-EPI STUDY REFIT EQUATION WITHOUT THE RACE VARIABLE FOR THE IDMS-TRACEABLE CREATININE METHODS.https://jasn.asnjournals.org/content/early//ASN .2216962685 Performed By: #### C MP ####[address] [address] Glucose [Mass/Vol] 198 mg/dL High 74 - 99 [facility] Comment on above: Performed By: #### C MP ####[address] [address] HCO3 (Bld) [Moles/Vol] 26 mmol/L Normal 21 - 32 [facility] Comment on above: Performed By: #### C MP ####[address] [address] Potassium [Moles/Vol] 3.7 mmol/L Normal 3.5 - 5.3 [facility] Comment on above: Performed By: #### C MP ####[address] [address] Protein [Mass/Vol] 5.7 g/dL Low 6.4 - 8.2 [facility] Comment on above: Performed By: #### C MP ####[address] [address] Sodium [Moles/Vol] 132 mmol/L Low 136 - 145 [facility] Comment on above: Performed By: #### C MP ####[address] [address] Urea nitrogen [Mass/Vol] 38 mg/dL High 6 - 23 [facility] Comment on above: Performed By: #### C MP ####[address] [address] Daily Progress Note-General Internal Medicineon 11-13-2022 Daily Progress Note-General Internal Medicine Normal [facility] Daily Progress Note-Nephrolo gyon 11-13-2022 Daily Progress Note-Nephrology Normal [facility] Daily Progress Note-Urologyo n 11-13-2022 Daily Progress Note-Urology Normal [facility] GLUCOSE-POCTon 11-13-2022 Glucose [Mass/Vol] 276 mg/dL High 74 - 99 [facility] Comment on above: Performed By: #### G MAURA ####[address] [address] Glucose [Mass/Vol] 204 mg/dL High 74 - 99 [facility] Comment on above: Result Comment: RN/Evangelista D NOTIFIED Performed By: #### G MAURA ####[address] [address] Glucose [Mass/Vol] 197 mg/dL High 74 - 99 [facility] Comment on above: Result Comment: RN/Evangelista D NOTIFIED Performed By: #### G MAURA ####[address] [address] Glucose [Mass/Vol] 172 mg/dL High 74 - 99 [facility] Comment on above: Result Comment: RN/Evangelista D NOTIFIED Performed By: #### G MAURA ####[address] [address] Laboratory - Chemistry and C hemistry - challengeon 11-13-2022 Glucose [Mass/Vol] 276 mg/dL above high threshold 74 - 99 HQ-Qniqong[facility] [place] Work Phone: Glucose [Mass/Vol] 204 mg/dL above high threshold 74 - 99 VD-Canvkjp-Cl [place] Work Phone: Comment on above: RN/MD NOTIFIED Glucose [Mass/Vol] 197 mg/dL above high threshold 74 - 99 CE-Ojllubl-Hw [place] Work Phone: Comment on above: RN/MD NOTIFIED Glucose [Mass/Vol] 172 mg/dL above high threshold 74 - 99 YJ-Ytudjsz-Ac [place] Work Phone: Comment on above: RN/MD NOTIFIED Albumin BCP dye [Mass/Vol] 2.6 g/dL below low threshold 3.4 - 5.0 ZG-Gpiaybv-En [place] Work Phone: ALP [Catalytic activity/Vol] 85 U/L 33 - 110 KM-Jdamdky-Ql [place] Work Phone: ALT With P-5'-P [Catalytic activity/Vol] 24 U/L 7 - 45 VQ-Wvdnvuf-Vg [place] Work Phone: Comment on above: Patients treated wit h Sulfasalazine may generate falsely decreased results for ALT. Anion gap [Moles/Vol] 13 mmol/L 10 - 20 TS-Ysyioel-Sw [place] Work Phone: AST With P-5'-P [Catalytic activity/Vol] 13 U/L 9 - 39 ML-Qryyfsc-Gi [place] Work Phone: Bilirubin [Mass/Vol] 0.7 mg/dL 0.0 - 1.2 MP-U rology-As [place] Work Phone: Calcium [Mass/Vol] 7.8 mg/dL below low threshold 8.6 - 10.3 PF-Ygawrgh-Kn [place] Work Phone: Chloride [Moles/Vol] 97 mmol/L below low threshold 98 - 107 OG-Pssffbf-Lu [place] Work Phone: CO2 [Moles/Vol] 26 mmol/L 21 - 32 MP-Urolog y-[place] Work Phone: Creatinine [Mass/Vol] 2.84 mg/dL above high threshold See Below XV-Ayslnbe-Ha [place] Work Phone: Comment on above: Reference Range: 0.5 0 - 1.05 Glucose [Mass/Vol] 198 mg/dL above high threshold 74 - 99 CU-Yektari-Fa [place] Work Phone: Potassium [Moles/Vol] 3.7 mmol/L 3.5 - 5.3 QE-Kmtocvr-Cx [place] Work Phone: Protein [Mass/Vol] 5.7 g/dL below low threshold 6.4 - 8.2 UH-Pgkqeyl-Dw [place] Work Phone: Sodium [Moles/Vol] 132 mmol/L below low threshold 136 - 145 BC-Jicxjcd-Cn [place] Work Phone: Urea nitrogen [Mass/Vol] 38 mg/dL above high threshold 6 - 23 NT-Kvrywpu-Rt [place] Work Phone: Laboratory - Hematology and Cell countson 11-13-2022 Erythrocyte distribution width (RBC) [Ratio] 13.7 % See Below ZY-Efdlwdp-Ug [place] Work Phone: Comment on above: Reference Range: 11. 5 - 14.5 Hematocrit (Bld) [Volume fraction] 30.3 % below low threshold See Below OH-Zuehbzl-Kr [place] Work Phone: Comment on above: Reference Range: 36. 0 - 46.0 Hemoglobin (Bld) [Mass/Vol] 10.0 g/dL below low threshold See Below FQ-Ecxohkk-[place] Work Phone: Comment on above: Reference Range: 12. 0 - 16.0 MCHC (RBC) [Mass/Vol] 33.0 g/dL See Below ZN-Rdrpcmu-Yx [place] Work Phone: Comment on above: Reference Range: 32. 0 - 36.0 MCV (RBC) [Entitic vol] 90 fL 80 - 100 QZ-Agjqmys-Tf [place] Work Phone: Platelets (Bld) [#/Vol] 277 10*3/uL 150 - 450 FY-Ptiebnp-Ar [place] Work Phone: RBC (Bld) [#/Vol] 3.38 {x10E12/L} below low threshold See Below KR-Pnpjeti-Fv [place] Work Phone: Comment on above: Reference [...] RACE VARIABLE FOR THE IDMS-TRACEABLE CREATININE METHODS.https://jasn.asnjournals.org/content/early//ASN .9716477628 BASIC METABOLIC PANELon Anion gap [Moles/Vol] 14 mmol/L Normal 10 - 20 [facility] Comment on above: Performed By: #### B MP ####[address] [address] Calcium [Mass/Vol] 7.6 mg/dL Low 8.6 - 10.3 [facility] Comment on above: Performed By: #### B MP ####[address] [address] Chloride [Moles/Vol] 97 mmol/L Low 98 - 107 [facility] Comment on above: Performed By: #### B MP ####[address] [address] Creatinine [Mass/Vol] 2.59 mg/dL High 0.50 - 1.05 [facility] Comment on above: Performed By: #### B MP ####[address] [address] GFR/1.73 sq M.predicted among non-blacks MDRD (S/P/Bld) [Vol rate/Area] 23 mL/min/{1.73_m2} Abnormal >90 [facility] Comment on above: Result Comment: CALC ULATIONS OF ESTIMATED GFR ARE PERFORMED USING THE 2020 CKD-EPI STUDY REFIT EQUATION WITHOUT THE RACE VARIABLE FOR THE IDMS-TRACEABLE CREATININE METHODS.https://jasn.asnjournals.org/content//ASN .5568346253 Performed By: #### B MP ####[address] [address] Glucose [Mass/Vol] 275 mg/dL High 74 - 99 [facility] Comment on above: Performed By: #### B MP ####[address] [address] HCO3 (Bld) [Moles/Vol] 24 mmol/L Normal 21 - 32 [facility] Comment on above: Performed By: #### B MP ####[address] [address] Potassium [Moles/Vol] 4.2 mmol/L Normal 3.5 - 5.3 [facility] Comment on above: Performed By: #### B MP ####[address] [address] Sodium [Moles/Vol] 131 mmol/L Low 136 - 145 [facility] Comment on above: Performed By: #### B MP ####[address] [address] Urea nitrogen [Mass/Vol] 35 mg/dL High 6 - 23 [facility] Comment on above: Performed By: #### B MP ####[address] [address] BLOOD CULTURE, BACTERIALon 0 11-12-2022 BLOOD CULTURE, BACTERIAL Normal [facility] Comment on above: Performed By: #### B LDC ####[id number] [place] [address] BLOOD CULTURE, BACTERIAL Normal [facility] Comment on above: Performed By: #### B LDC ####[id number] [place] [address] CBCon 11-12-2022 Erythrocyte distribution width (RBC) [Ratio] 13.8 % Normal 11.5 - 14.5 [facility] Comment on above: Performed By: #### C BC ####[address] [address] Hematocrit (Bld) [Volume fraction] 29.5 % Low 36.0 - 46.0 [facility] Comment on above: Performed By: #### C BC ####[address] [address] Hemoglobin (Bld) [Mass/Vol] 10.0 g/dL Low 12.0 - 16.0 [facility] Comment on above: Performed By: #### C BC ####[address] [address] MCHC (RBC) [Mass/Vol] 33.9 g/dL Normal 32.0 - 36.0 [facility] Comment on above: Performed By: #### C BC ####[address] [address] MCV (RBC) [Entitic vol] 91 fL Normal 80 - 100 [facility] Comment on above: Performed By: #### C BC ####[address] [address] Platelets (Bld) [#/Vol] 241 10*3/uL Normal 150 - 450 [facility] Comment on above: Performed By: #### C BC ####[address] [address] RBC 3.25 x10E12/L Low 4.00 - 5.20 [facility] Comment on above: Performed By: #### C BC ####[address] [address] WBC (Bld) [#/Vol] 7.7 10*3/uL Normal 4.4 - 11.3 [facility] Comment on above: Performed By: #### C BC ####[address] [address] Consult-Nephrologyon 023 Consult-Nephrology Normal [facility] Cult, Bloodon 11-12-2022 Bacteria identified Cx Nom (Bld) WL-Ogsjvdi-Fc [place] Work Phone: Bacteria identified Cx Nom (Bld) GR-Gvzsxit-Kv [place] Work Phone: Cult, Urineon 11-12-2022 Bacteria identified Cx Nom (U) CP-Oiyfarc-Xv [place] Work Phone: Daily Progress Note-General Internal Medicineon 11-12-2022 Daily Progress Note-General Internal Medicine Normal [facility] Daily Progress Note-Urologyo n 11-12-2022 Daily Progress Note-Urology Normal [facility] GLUCOSE-POCTon 11-12-2022 Glucose [Mass/Vol] 270 mg/dL High 74 - [address] [place] [address] Comment on above: Performed By: #### G MAURA ####[address] [address] Glucose [Mass/Vol] 181 mg/dL High - [address] [place] [address] Comment on above: Performed By: #### G MAURA ####[address] [address] Glucose [Mass/Vol] 259 mg/dL High - [address] [place] [address] Comment on above: Performed By: #### G MAURA ####[address] [address] Glucose [Mass/Vol] 257 mg/dL High [address] [place] [address] Comment on above: Performed By: #### G MAURA ####[address] [address] Laboratory - Chemistry and C hemistry - challengeon 11-12-2022 Glucose [Mass/Vol] 270 mg/dL above high threshold 74 - 99 CP-Boelrgy-Ga [place] Work Phone: Glucose [Mass/Vol] 181 mg/dL above high threshold 74 - 99 BO-Wovkelz-Fw [place] Work Phone: Glucose [Mass/Vol] 259 mg/dL above high threshold 74 - 99 TB-Ymkbxdi-Rp [place] Work Phone: Glucose [Mass/Vol] 257 mg/dL above high threshold 74 - 99 HO-Klvfhoh-Cy [place] Work Phone: Anion gap [Moles/Vol] 14 mmol/L 10 - 20 XO-Ryujbnu-Eq [place] Work Phone: Calcium [Mass/Vol] 7.6 mg/dL below low threshold 8.6 - 10.3 TB-Qyhaxnf-Wg [place] Work Phone: Chloride [Moles/Vol] 97 mmol/L below low threshold 98 - 107 OA-Yzoxnyu-Tj [place] Work Phone: CO2 [Moles/Vol] 24 mmol/L 21 - 32 MP-Urolog y-[place] Work Phone: Creatinine [Mass/Vol] 2.59 mg/dL above high threshold See Below FM-Qggzdbb-Do [place] Work Phone: Comment on above: Reference Range: 0.5 0 - 1.05 Glucose [Mass/Vol] 275 mg/dL above high threshold 74 - 99 XI-Yzvdxbk-Ci [place] Work Phone: Potassium [Moles/Vol] 4.2 mmol/L 3.5 - 5.3 FQ-Runwdnd-Bv [place] Work Phone: Sodium [Moles/Vol] 131 mmol/L below low threshold 136 - 145 CN-Vfytvax-Mj [place] Work Phone: Urea nitrogen [Mass/Vol] 35 mg/dL above high threshold 6 - 23 CG-Pkuapgb-Io [place] Work Phone: Laboratory - Hematology and Cell countson 11-12-2022 Erythrocyte distribution width (RBC) [Ratio] 13.8 % See Below VM-Lslxdem-Sb [place] Work Phone: Comment on above: Reference Range: 11. 5 - 14.5 Hematocrit (Bld) [Volume fraction] 29.5 % below low threshold See Below UE-Enjcohg-Oo [place] Work Phone: Comment on above: Reference Range: 36. 0 - 46.0 Hemoglobin (Bld) [Mass/Vol] 10.0 g/dL below low threshold See Below UB-Mhwunqo-If [place] Work Phone: [phone] Comment on above: Reference Range: 12. 0 - 16.0 MCHC (RBC) [Mass/Vol] 33.9 g/dL See Below GC-Fyvvfqq-Ss [place] Work Phone: [phone] Comment on above: Reference Range: 32. 0 - 36.0 MCV (RBC) [Entitic vol] 91 fL 80 - 100 DO-Peohvws-Im [place] Work Phone: [phone] Platelets (Bld) [#/Vol] 241 10*3/uL 150 - 450 QG-Bavvlwb-Ex [place] Work Phone: RBC (Bld) [#/Vol] 3.25 {x10E12/L} below low threshold See Below VW-Lgownui-Pw [place] Work Phone: Comment on above: Reference [...] RACE VARIABLE FOR THE IDMS-TRACEABLE CREATININE METHODS.https://jasn.asnjournals.org/content/early//ASN .8458913592 Radiologyon 11-12-2022 US Kidney - bilateral Normal AX-Egspfhb-Lw [place] Work Phone: UA MICROSCOPICon 11-12-2022 BACTERIA 1+ /HPF Abnormal [facility] Comment on above: Performed By: #### U AMIC ####[facility] [place] [address] Mucus Ql (Urine sed) 1+ /LPF Normal [facility] Comment on above: Performed By: #### U AMIC ####[place] [address] RBC 10 /HPF Abnormal 0-5 [facility] Comment on above: Performed By: #### U AMIC ####[place] [address] SQUAMOUS EPITH. CELLS 5 /HPF Normal [facility] Comment on above: Performed By: #### U AMIC ####[place] [address] WBC 33 /HPF Abnormal 0-5 [facility] Comment on above: Performed By: #### U AMIC ####[place] [address] URINALYSIS WITH CULTURE IF I NDICATEDon 11-12-2022 Appearance (U) HAZY Normal CLEAR [facility] Comment on above: Performed By: #### U ARFX ####[place] [address] Bilirubin Ql (U) Negative Normal NEGATIVE [facility] Comment on above: Performed By: #### U ARFX ####[place] [address] Color (U) YELLOW Normal STRAW,YELLO W [facility] Comment on above: Performed By: #### U ARFX ####[place] [address] Glucose Ql (U) Negative Normal NEGATIVE [facility] Comment on above: Performed By: #### U ARFX ####[place] [address] Hemoglobin Ql (U) MODERATE (2+) Abnormal NEGATIVE [facility] Comment on above: Performed By: #### U ARFX ####[place] [address] Ketones Ql (U) Negative Normal NEGATIVE [facility] Comment on above: Performed By: #### U ARFX ####[place] [address] Leukocyte esterase Test strip Ql (U) SMALL (1+) Abnormal NEGATIVE [facility] Comment on above: Performed By: #### U ARFX ####[address] [address] Nitrite Ql (U) Negative Normal NEGATIVE [facility] Comment on above: Performed By: #### U ARFX ####[address] [address] pH (U) 5.5 [pH] Normal 5.0 - 8.0 [facility] Comment on above: Performed By: #### U ARFX ####[address] [address] Protein Ql (U) 30 (1+) Abnormal NEGATIVE [facility] Comment on above: Performed By: #### U ARFX ####[address] [address] Specific gravity (U) [Rel density] 1.015 Normal 1.005 - 1.035 [facility] Comment on above: Performed By: #### U ARFX ####[address] [address] Urobilinogen (U) [Mass/Vol] mg/dL Normal 0.0 - 1.9 [facility] Comment on above: Performed By: #### U ARFX ####[address] [address] Color (U) YELLOW See Below JJ-Keihoxi-Op [place] Work Phone: Comment on above: Reference Range: STR AW,YELLOW Glucose Ql (U) Negative NEGATIVE MP-Urology -[place] Work Phone: Ketones Ql (U) Negative NEGATIVE MP-Urology -[place] Work Phone: Leukocyte esterase Test strip Ql (U) SMALL (1+) Abnormal NEGATIVE FU-Gwugjue-Km [place] Work Phone: pH (U) 5.5 [pH] 5.0 - 8.0 GU-Trehbvs-Pm [place] Work Phone: Protein (U) [Mass/Vol] 30 (1+) Abnormal NEGATIVE CU-Qtksmev-Tb [place] Work Phone: RBC (U) [#/Vol] MODERATE (2+) Abnormal NEGATIVE MP-Uro logy-[place] Work Phone: [phone] Specific gravity (U) [Rel density] 1.015 1 See Below SY-Xataase-Km [place] Work Phone: [phone] Comment on above: Reference Range: 1.0 05 - 1.035 URINALYSIS WITH CULTURE IF INDICATED Negative NEGATIVE MP-Urology- [place] Work Phone: [phone] URINALYSIS WITH CULTURE IF INDICATED <2.0 0.0 - 1.9 MP-Urology- [place] Work Phone: [phone] URINALYSIS WITH CULTURE IF INDICATED HAZY CLEAR MP-Urology- [place] Work Phone: [phone] URINE CULTURE,BACTERIALon URINE CULTURE,BACTERIAL Normal [facility] Comment on above: Performed By: #### U [facility] ####[id number] [place] [address] Urinalysis, Microscopicon Urinalysis, Microscopic 1+ Abnormal KN-Hpfsjqy-Rt [place] Work Phone: [phone] Urinalysis, Microscopic 5 {/HPF} WW-Jkvgvfg-Ji [place] Work Phone: [phone] Urinalysis, Microscopic 10 {/HPF} Abnormal 0-5 AD-Fuegdvg-Gm [place] Work Phone: Urinalysis, Microscopic 33 {/HPF} Abnormal 0-5 AD-Rmnqwct-Yl [place] Work Phone: Admission Risk Screen - Adul ton 11-11-2022 Admission Risk Screen - Adult Normal [facility] BASIC METABOLIC PANELon -0 Anion gap [Moles/Vol] 13 mmol/L Normal 10 - 20 [facility] Comment on above: Performed By: #### B MP ####[address] [address] Calcium [Mass/Vol] 7.8 mg/dL Low 8.6 - 10.3 [facility] Comment on above: Performed By: #### B MP ####[address] [address] Chloride [Moles/Vol] 99 mmol/L Normal 98 - 107 [facility] Comment on above: Performed By: #### B MP ####[address] [address] Creatinine [Mass/Vol] 1.24 mg/dL High 0.50 - 1.05 [facility] Comment on above: Performed By: #### B MP ####[address] [address] GFR/1.73 sq M.predicted among non-blacks MDRD (S/P/Bld) [Vol rate/Area] 55 mL/min/{1.73_m2} Abnormal >90 [facility] Comment on above: Result Comment: CALC ULATIONS OF ESTIMATED GFR ARE PERFORMED USING THE 2020 CKD-EPI STUDY REFIT EQUATION WITHOUT THE RACE VARIABLE FOR THE IDMS-TRACEABLE CREATININE METHODS.https://jasn.asnjournals.org/content//ASN .4998543392 Performed By: #### B MP ####[address] [address] Glucose [Mass/Vol] 302 mg/dL High 74 - 99 [facility] Comment on above: Performed By: #### B MP ####[address] [address] HCO3 (Bld) [Moles/Vol] 25 mmol/L Normal 21 - 32 [facility] Comment on above: Performed By: #### B MP ####[address] [address] Potassium [Moles/Vol] 3.7 mmol/L Normal 3.5 - 5.3 [facility] Comment on above: Performed By: #### B MP ####[address] [address] Sodium [Moles/Vol] 133 mmol/L Low 136 - 145 [facility] Comment on above: Performed By: #### B MP ####[address] [address] Urea nitrogen [Mass/Vol] 19 mg/dL Normal 6 - 23 [facility] Comment on above: Performed By: #### B MP ####[address] [address] CBC AND DIFFERENTIALon 11-11 % AUTOMATED IMMATURE GRAN 0.5 % Normal 0.0 - 0.9 [facility] Comment on above: Result Comment: Alla ture Granulocyte Count (IG) includes promyelocytes, myelocytes and metamyelocytes but does not include bands. Percent differential counts (%) should be interpreted in the context of the absolute cell counts (cells/L). Performed By: #### C BCDF ####[address] [address] Basophils (Bld) [#/Vol] 0.03 10*3/uL Normal 0.00 - 0.10 [facility] Comment on above: Performed By: #### C BCDF ####[address] [address] Basophils/100 WBC (Bld) 0.5 % Normal 0.0 - 2.0 [facility] Comment on above: Performed By: #### C BCDF ####[address] [address] Eosinophils (Bld) [#/Vol] 0.06 10*3/uL Normal 0.00 - 0.70 [facility] Comment on above: Performed By: #### C BCDF ####[address] [address] Eosinophils/100 WBC (Bld) 1.1 % Normal 0.0 - 6.0 [facility] Comment on above: Performed By: #### C BCDF ####[address] [address] Erythrocyte distribution width (RBC) [Ratio] 13.2 % Normal 11.5 - 14.5 [facility] Comment on above: Performed By: #### C BCDF ####[address] [address] Hematocrit (Bld) [Volume fraction] 34.1 % Low 36.0 - 46.0 [facility] Comment on above: Performed By: #### C BCDF ####[address] [address] Hemoglobin (Bld) [Mass/Vol] 11.1 g/dL Low 12.0 - 16.0 [facility] Comment on above: Performed By: #### C BCDF ####[address] [address] Lymphocytes (Bld) [#/Vol] 1.08 10*3/uL Low 1.20 - 4.80 [facility] Comment on above: Performed By: #### C BCDF ####[address] [address] Lymphocytes/100 WBC (Bld) 19.1 % Normal 13.0 - 44.0 [facility] Comment on above: Performed By: #### C BCDF ####[address] [address] MCHC (RBC) [Mass/Vol] 32.6 g/dL Normal 32.0 - 36.0 [facility] Comment on above: Performed By: #### C BCDF ####[address] [address] MCV (RBC) [Entitic vol] 91 fL Normal 80 - 100 [facility] Comment on above: Performed By: #### C BCDF ####[address] [address] Monocytes (Bld) [#/Vol] 0.66 10*3/uL Normal 0.10 - 1.00 [facility] Comment on above: Performed By: #### C BCDF ####[address] [address] Monocytes/100 WBC (Bld) 11.7 % Normal 2.0 - 10.0 [facility] Comment on above: Performed By: #### C BCDF ####[address] [address] Neutrophils (Bld) [#/Vol] 3.78 10*3/uL Normal 1.20 - 7.70 [facility] Comment on above: Result Comment: Perc ent differential counts (%) should be interpreted in the context of the absolute cell counts (cells/L). Performed By: #### C BCDF ####[address] [address] Neutrophils/100 WBC (Bld) 67.1 % Normal 40.0 - 80.0 [facility] Comment on above: Performed By: #### C BCDF ####[address] [address] Platelets (Bld) [#/Vol] 196 10*3/uL Normal 150 - 450 [facility] Comment on above: Performed By: #### C BCDF ####[address] [address] RBC 3.77 x10E12/L Low 4.00 - 5.20 [facility] Comment on above: Performed By: #### C BCDF ####[address] [address] WBC (Bld) [#/Vol] 5.6 10*3/uL Normal 4.4 - 11.3 [facility] Comment on above: Performed By: #### C BCDF ####[address] [address] CORONAVIRUS 2019 BY PCRon SARS-CoV-2 (COVID-19) RNA GLENNA+probe Ql (Unsp spec) Not detected Normal Not Detected [facility] Comment on above: Result Comment: .Thi s test has received FDA Emergency Use Authorization (EUA) and has beenverified by [facility]. This test is onlyauthorized for the duration of time that circumstances exist to justify theauthorization of the emergency use of in vitro diagnostic tests for thedetection of SARS-CoV-2 virus and/or diagnosis of COVID-19 infection undersection 564(b)(1) of the Act, 21 U.S.C. 360bbb-3(b)(1), unless theauthorization is terminated or revoked sooner.[facility] is certified under CLIA-88 asqualified to perform high complexity testing. Testing is performed in [facility] laboratory located at [address] [place], [place].SARS-CoV-2/Flu/RSV Multiplex Test:Fact sheet for providers: https://www.fda.gov/media/766232/downloadFact sheet for patients: https://www.fda.gov/media/861259/download Performed By: #### C OV19 ####[place] [address] Lab Specimen Source Nasal, Nasopharyngeal Normal [facility] Comment on above: Performed By: #### C OV19 ####[address] [address] Complete Blood Count + Diffe rentialon 11-11-2022 Basophils/100 WBC (Bld) 0.5 % 0.0 - 2.0 LK-Jnrevld-[place] Work Phone: Erythrocyte distribution width (RBC) [Ratio] 13.2 % See Below WR-Gijbhgd-Cm [place] Work Phone: Comment on above: Reference Range: 11. 5 - 14.5 Hematocrit (Bld) [Volume fraction] 34.1 % below low threshold See Below SB-Pmzisyq-Hy [place] Work Phone: Comment on above: Reference Range: 36. 0 - 46.0 Hemoglobin (Bld) [Mass/Vol] 11.1 g/dL below low threshold See Below BZ-Mfdsljb-Bs [place] Work Phone: Comment on above: Reference Range: 12. 0 - 16.0 Lymphocytes/100 WBC (Bld) 19.1 % See Below HZ-Raccbgp-Tw [place] Work Phone: Comment on above: Reference Range: 13. 0 - 44.0 MCHC (RBC) [Mass/Vol] 32.6 g/dL See Below XA-Gtbvhcu-Xh [place] Work Phone: Comment on above: Reference Range: 32. 0 - 36.0 MCV (RBC) [Entitic vol] 91 fL 80 - 100 PX-Dofkxan-Ai [place] Work Phone: Monocytes/100 WBC (Bld) 11.7 % 2.0 - 10.0 KQ-Skkyeos-Iu [place] Work Phone: Neutrophils/100 WBC (Bld) 67.1 % See Below EU-Jknmidw-Qv [place] Work Phone: Comment on above: Reference Range: 40. 0 - 80.0 Platelets (Bld) [#/Vol] 196 10*3/uL 150 - 450 LW-Vdlglkc-Il [place] Work Phone: RBC (Bld) [#/Vol] 3.77 {x10E12/L} below low threshold See Below AG-Gfcxtiu-Gq [place] Work Phone: Comment on above: Reference Range: 4.0 0 - 5.20 WBC (Bld) [#/Vol] 5.6 10*3/uL 4.4 - 11.3 MP-Uro logy-As [place] Work Phone: Complete Blood Count + Differential 0.03 {x10E9/L} See Below CT-Fblluda-Fe [place] Work Phone: Comment on above: Reference Range: 0.0 0 - 0.10 Complete Blood Count + Differential 0.06 {x10E9/L} See Below EF-Bdnydjf-Za [place] Work Phone: Comment on above: Reference Range: 0.0 0 - 0.70 Complete Blood Count + Differential 0.66 {x10E9/L} See Below YY-Qivjgxd-Gg [place] Work Phone: Comment on above: Reference Range: 0.1 0 - 1.00 Complete Blood Count + Differential 1.08 {x10E9/L} below low threshold See Below BE-Xfepjpi-Zy [place] Work Phone: Comment on above: Reference Range: 1.2 0 - 4.80 Complete Blood Count + Differential 3.78 {x10E9/L} See Below OG-Ifhktgz-Va [place] Work Phone: Comment on above: Reference Range: 1.2 0 - 7.70 Percent differential counts (%) should be interpreted in the context of the absolute cell counts (cells/L). Complete Blood Count + Differential 1.1 % 0.0 - 6.0 WI-Pmpyqor-Aa [place] Work Phone: Complete Blood Count + Differential 0.5 % 0.0 - 0.9 OU-Jzxgvjc-Qh [place] Work Phone: Comment on above: Immature Granulocyte Count (IG) includes promyelocytes, myelocytes and metamyelocytes but does not include bands. Percent differential counts (%) should be interpreted in the context of the absolute cell counts (cells/L). Consult-Urologyon 11-11-2022 Consult-Urology Normal [facility] Covid 19 Resultson SARS-CoV-2 (COVID-19) RNA GLENNA+probe Ql (Unsp spec) Normal [facility] Discharge Planning Hsoy2iz 0 11-11-2022 Discharge Planning Note2 Normal [facility] GLUCOSE-POCTon 11-11-2022 Glucose [Mass/Vol] 313 mg/dL High 74 - [address] [place] [address] Comment on above: Performed By: #### G MAURA ####[address] [address] Glucose [Mass/Vol] 360 mg/dL High [address] [place] [address] Comment on above: Performed By: #### G MAURA ####[address] [address] Glucose [Mass/Vol] 264 mg/dL High [address] [place] [address] Comment on above: Performed By: #### G MAURA ####[address] [address] Glucose [Mass/Vol] 219 mg/dL High [address] [place] [address] Comment on above: Performed By: #### G MAURA ####[address] [address] Laboratory - Chemistry and C hemistry - challengeon 11-11-2022 Glucose [Mass/Vol] 313 mg/dL above high threshold 74 - 99 WO-Frigywo-Ul [place] Work Phone: Glucose [Mass/Vol] 360 mg/dL above high threshold 74 - 99 CW-Jtiifry-Fu [place] Work Phone: Glucose [Mass/Vol] 264 mg/dL above high threshold 74 - 99 CJ-Mqxgkpr-Vw [place] Work Phone: Glucose [Mass/Vol] 219 mg/dL above high threshold 74 - 99 FL-Tgykoap-Xg [place] Work Phone: Anion gap [Moles/Vol] 13 mmol/L 10 - 20 BM-Ofehtlb-Nl [place] Work Phone: Calcium [Mass/Vol] 7.8 mg/dL below low threshold 8.6 - 10.3 ZC-Gvztyab-Qx [place] Work Phone: Chloride [Moles/Vol] 99 mmol/L 98 - 107 MP-U rology-As [place] Work Phone: CO2 [Moles/Vol] 25 mmol/L 21 - 32 MP-Urolog y-[place] Work Phone: Creatinine [Mass/Vol] 1.24 mg/dL above high threshold See Below MA-Swcpdec-Pv [place] Work Phone: Comment on above: Reference Range: 0.5 0 - 1.05 Glucose [Mass/Vol] 302 mg/dL above high threshold 74 - 99 UD-Ycpbjjo-Lw [place] Work Phone: Potassium [Moles/Vol] 3.7 mmol/L 3.5 - 5.3 MI-Ausgihm-Ql [place] Work Phone: Sodium [Moles/Vol] 133 mmol/L below low threshold 136 - 145 QL-Osdmujf-Ii [place] Work Phone: Urea nitrogen [Mass/Vol] 19 mg/dL 6 - 23 GN-Ewgwrww-Jt [place] Work Phone: No Panel Informationon 11-11 55 {mL/min/1.73m2} Abnormal >90 MP-Uro logy-[place] Work Phone: Comment on above: CALCULATIONS OF SACHIN MATED GFR ARE PERFORMED USING THE 2020 CKD-EPI STUDY REFIT EQUATION WITHOUT THE RACE VARIABLE FOR THE IDMS-TRACEABLE CREATININE METHODS.https://jasn.asnjournals.org/content//ASN .[id number] Order Reconciliationon 11-11 Order Reconciliation Normal [facility] Patient Profile - Adult v2on 11-11-2022 Patient Profile - Adult v2 Normal [facility] CBC AND DIFFERENTIALon 11-10 % AUTOMATED IMMATURE GRAN 0.4 % Normal 0.0 - 0.9 [facility] Comment on above: Result Comment: Alla ture Granulocyte Count (IG) includes promyelocytes, myelocytes and metamyelocytes but does not include bands. Percent differential counts (%) should be interpreted in the context of the absolute cell counts (cells/L). Performed By: #### C BCDF ####[address] [address] Basophils (Bld) [#/Vol] 0.02 10*3/uL Normal 0.00 - 0.10 [facility] Comment on above: Performed By: #### C BCDF ####[address] [address] Basophils/100 WBC (Bld) 0.2 % Normal 0.0 - 2.0 [facility] Comment on above: Performed By: #### C BCDF ####[address] [address] Eosinophils (Bld) [#/Vol] 0.02 10*3/uL Normal 0.00 - 0.70 [facility] Comment on above: Performed By: #### C BCDF ####[address] [address] Eosinophils/100 WBC (Bld) 0.2 % Normal 0.0 - 6.0 [facility] Comment on above: Performed By: #### C BCDF ####[address] [address] Erythrocyte distribution width (RBC) [Ratio] 12.8 % Normal 11.5 - 14.5 [facility] Comment on above: Performed By: #### C BCDF ####[address] [address] Hematocrit (Bld) [Volume fraction] 34.2 % Low 36.0 - 46.0 [facility] Comment on above: Performed By: #### C BCDF ####[address] [address] Hemoglobin (Bld) [Mass/Vol] 11.7 g/dL Low 12.0 - 16.0 [facility] Comment on above: Performed By: #### C BCDF ####[address] [address] Lymphocytes (Bld) [#/Vol] 1.01 10*3/uL Low 1.20 - 4.80 [facility] Comment on above: Performed By: #### C BCDF ####[address] [address] Lymphocytes/100 WBC (Bld) 12.6 % Normal 13.0 - 44.0 [facility] Comment on above: Performed By: #### C BCDF ####[address] [address] MCHC (RBC) [Mass/Vol] 34.2 g/dL Normal 32.0 - 36.0 [facility] Comment on above: Performed By: #### C BCDF ####[address] [address] MCV (RBC) [Entitic vol] 88 fL Normal 80 - 100 [facility] Comment on above: Performed By: #### C BCDF ####[address] [address] Monocytes (Bld) [#/Vol] 0.88 10*3/uL Normal 0.10 - 1.00 [facility] Comment on above: Performed By: #### C BCDF ####[address] [address] Monocytes/100 WBC (Bld) 11.0 % Normal 2.0 - 10.0 [facility] Comment on above: Performed By: #### C BCDF ####[address] [address] Neutrophils (Bld) [#/Vol] 6.07 10*3/uL Normal 1.20 - 7.70 [facility] Comment on above: Result Comment: Perc ent differential counts (%) should be interpreted in the context of the absolute cell counts (cells/L). Performed By: #### C BCDF ####[address] [address] Neutrophils/100 WBC (Bld) 75.6 % Normal 40.0 - 80.0 [facility] Comment on above: Performed By: #### C BCDF ####[address] [address] Platelets (Bld) [#/Vol] 210 10*3/uL Normal 150 - 450 [facility] Comment on above: Performed By: #### C BCDF ####[address] [address] RBC 3.91 x10E12/L Low 4.00 - 5.20 [facility] Comment on above: Performed By: #### C BCDF ####[address] [address] WBC (Bld) [#/Vol] 8.0 10*3/uL Normal 4.4 - 11.3 [facility] Comment on above: Performed By: #### C BCDF ####[address] [address] COMPREHENSIVE PANELon 2022 Albumin [Mass/Vol] 3.1 g/dL Low 3.4 - 5.0 [facility] Comment on above: Performed By: #### C MP ####[address] [address] ALP [Catalytic activity/Vol] 84 U/L Normal 33 - 110 [facility] Comment on above: Performed By: #### C MP ####[address] [address] ALT [Catalytic activity/Vol] 28 U/L Normal 7 - 45 [facility] Comment on above: Result Comment: Bridget ents treated with Sulfasalazine may generate falsely decreased results for ALT. Performed By: #### C MP ####[address] [address] Anion gap [Moles/Vol] 14 mmol/L Normal 10 - 20 [facility] Comment on above: Performed By: #### C MP ####[address] [address] AST [Catalytic activity/Vol] 26 U/L Normal 9 - 39 [facility] Comment on above: Performed By: #### C MP ####[address] [address] Bilirubin [Mass/Vol] 1.0 mg/dL Normal 0.0 - 1.2 [facility] Comment on above: Performed By: #### C MP ####[address] [address] Calcium [Mass/Vol] 8.2 mg/dL Low 8.6 - 10.3 [facility] Comment on above: Performed By: #### C MP ####[address] [address] Chloride [Moles/Vol] 93 mmol/L Low 98 - 107 [facility] Comment on above: Performed By: #### C MP ####[address] [address] Creatinine [Mass/Vol] 1.25 mg/dL High 0.50 - 1.05 [facility] Comment on above: Performed By: #### C MP ####[address] [address] GFR/1.73 sq M.predicted among non-blacks MDRD (S/P/Bld) [Vol rate/Area] 54 mL/min/{1.73_m2} Abnormal >90 [facility] Comment on above: Result Comment: CALC ULATIONS OF ESTIMATED GFR ARE PERFORMED USING THE 2020 CKD-EPI STUDY REFIT EQUATION WITHOUT THE RACE VARIABLE FOR THE IDMS-TRACEABLE CREATININE METHODS.https://jasn.asnjournals.org/content//ASN .5635899990 Performed By: #### C MP ####[address] [address] Glucose [Mass/Vol] 327 mg/dL High 74 - 99 [facility] Comment on above: Performed By: #### C MP ####[address] [address] HCO3 (Bld) [Moles/Vol] 27 mmol/L Normal 21 - 32 [facility] Comment on above: Performed By: #### C MP ####[address] [address] Potassium [Moles/Vol] 3.7 mmol/L Normal 3.5 - 5.3 [facility] Comment on above: Performed By: #### C MP ####[address] [address] Protein [Mass/Vol] 6.7 g/dL Normal 6.4 - 8.2 [facility] Comment on above: Performed By: #### C MP ####[address] [address] Sodium [Moles/Vol] 130 mmol/L Low 136 - 145 [facility] Comment on above: Performed By: #### C MP ####[address] [address] Urea nitrogen [Mass/Vol] 16 mg/dL Normal 6 - 23 [facility] Comment on above: Performed By: #### C MP ####[address] [address] [address] ABDOMEN AND PELVIS W IV C ONTRASTon 11-10-2022 CT ABDOMEN AND PELVIS W IV CONTRAST Normal [facility] CT Abdomen and Pelvis with I V Contraston 11-10-2022 CT Abdomen and Pelvis W contrast IV Normal MP-Urology- [place] Work Phone: Complete Blood Count + Diffe rentialon 11-10-2022 Basophils/100 WBC (Bld) 0.2 % 0.0 - 2.0 QH-Tztvjsa-Qc h[place] Work Phone: Erythrocyte distribution width (RBC) [Ratio] 12.8 % See Below HI-Lrvedua-Vw [place] Work Phone: Comment on above: Reference Range: 11. 5 - 14.5 Hematocrit (Bld) [Volume fraction] 34.2 % below low threshold See Below UM-Frwkdkl-Os [place] Work Phone: Comment on above: Reference Range: 36. 0 - 46.0 Hemoglobin (Bld) [Mass/Vol] 11.7 g/dL below low threshold See Below YR-Kpuavbh-Tw [place] Work Phone: Comment on above: Reference Range: 12. 0 - 16.0 Lymphocytes/100 WBC (Bld) 12.6 % See Below HH-Trmokth-Iq [place] Work Phone: Comment on above: Reference Range: 13. 0 - 44.0 MCHC (RBC) [Mass/Vol] 34.2 g/dL See Below HN-Petianf-Ab [place] Work Phone: Comment on above: Reference Range: 32. 0 - 36.0 MCV (RBC) [Entitic vol] 88 fL 80 - 100 MD-Trtiqvl-Sm [place] Work Phone: Monocytes/100 WBC (Bld) 11.0 % 2.0 - 10.0 NY-Flgrddm-Jt [place] Work Phone: Neutrophils/100 WBC (Bld) 75.6 % See Below KN-Wagdyzo-Gw [place] Work Phone: Comment on above: Reference Range: 40. 0 - 80.0 Platelets (Bld) [#/Vol] 210 10*3/uL 150 - 450 XY-Umkdogd-La [place] Work Phone: RBC (Bld) [#/Vol] 3.91 {x10E12/L} below low threshold See Below NU-Ruvlpfd-Zu [place] Work Phone: Comment on above: Reference Range: 4.0 0 - 5.20 WBC (Bld) [#/Vol] 8.0 10*3/uL 4.4 - 11.3 MP-Uro logy-As [place] Work Phone: Complete Blood Count + Differential 0.02 {x10E9/L} See Below LA-Ecageuf-Xr h[place] Work Phone: Comment on above: Reference Range: 0.0 0 - 0.10 Reference Range: 0.0 0 - 0.70 Complete Blood Count + Differential 0.88 {x10E9/L} See Below YK-Jwvepbm-Fh h[place] Work Phone: Comment on above: Reference Range: 0.1 0 - 1.00 Complete Blood Count + Differential 1.01 {x10E9/L} below low threshold See Below PH-Llfjqdn-Sa [place] Work Phone: Comment on above: Reference Range: 1.2 0 - 4.80 Complete Blood Count + Differential 6.07 {x10E9/L} See Below CP-Mwjlhgu-Lr h[place] Work Phone: Comment on above: Reference Range: 1.2 0 - 7.70 Percent differential counts (%) should be interpreted in the context of the absolute cell counts (cells/L). Complete Blood Count + Differential 0.2 % 0.0 - 6.0 FT-Pxqxqks-Yt h[place] Work Phone: Complete Blood Count + Differential 0.4 % 0.0 - 0.9 UH-Zaxvylf-Eh [place] Work Phone: Comment on above: Immature Granulocyte Count (IG) includes promyelocytes, myelocytes and metamyelocytes but does not include bands. Percent differential counts (%) should be interpreted in the context of the absolute cell counts (cells/L). Coronavirus 2019 RNA by PCR, Symptomaticon 11-10-2022 Coronavirus 2019 RNA by PCR, Symptomatic Not detected Normal See Below VW-Lppupgr-C s h[place] Work Phone: Comment on above: SOURCE: Nasal, Nasop haryngealReference Range: Not Detected.This test has received FDA Emergency Use Authorization (EUA) and has been verified by [facility]. This test is only authorized for the duration of time that circumstances exist to justify the authorization of the emergency use of in vitro diagnostic tests for the detection of SARS-CoV-2 virus and/or diagnosis of COVID-19 infection under section 564(b)(1) of the Act, 21 U.S.C. 360bbb-3(b)(1), unless the authorization is terminated or revoked sooner. [facility] is certified under CLIA-88 as qualified to perform high complexity testing. Testing is performed in the [facility] laboratory located at [address] [place] [address].SARS-CoV-2/Flu/RSV Multiplex Test: Fact sheet for providers: https://www.fda.gov/media/956178/downloadFact sheet for patients: https://www.fda.gov/media/816713/download LIPASEon 11-10-2022 Lipase [Catalytic activity/Vol] 12 U/L Normal 9 - 82 [facility] Comment on above: Result Comment: Paris puncture immediately after or during the administration of Metamizole may lead to falsely low results. Testing should be performed immediately prior to Metamizole dosing. F-mxnkrj-t-benzoquinone imine (metabolite of Acetaminophen) will generate erroneously low results in samples for patients that have taken toxic doses of acetaminophen. Performed By: #### L IPAS ####[place] [address] Laboratory - Chemistry and C hemistry - challengeon 11-10-2022 Albumin BCP dye [Mass/Vol] 3.1 g/dL below low threshold 3.4 - 5.0 OQ-Wpzwhbk-Xr [place] Work Phone: ALP [Catalytic activity/Vol] 84 U/L 33 - 110 FK-Idbagbk-Kg [place] Work Phone: ALT With P-5'-P [Catalytic activity/Vol] 28 U/L 7 - 45 IP-Sfmtbjd-Ep [place] Work Phone: Comment on above: Patients treated wit h Sulfasalazine may generate falsely decreased results for ALT. Anion gap [Moles/Vol] 14 mmol/L 10 - 20 EZ-Lowsqqg-Co [place] Work Phone: AST With P-5'-P [Catalytic activity/Vol] 26 U/L 9 - 39 VW-Mrgeaow-Yt [place] Work Phone: Bilirubin [Mass/Vol] 1.0 mg/dL 0.0 - 1.2 MP-U rology-As [place] Work Phone: [phone] Calcium [Mass/Vol] 8.2 mg/dL below low threshold 8.6 - 10.3 ZP-Ljrncbb-Ew [place] Work Phone: [phone] Chloride [Moles/Vol] 93 mmol/L below low threshold 98 - 107 PQ-Ehslwfh-Ah [place] Work Phone: CO2 [Moles/Vol] 27 mmol/L 21 - 32 MP-Urolog y-[place] Work Phone: Creatinine [Mass/Vol] 1.25 mg/dL above high threshold See Below QL-Qibrkcm-Ls h[place] Work Phone: Comment on above: Reference Range: 0.5 0 - 1.05 Glucose [Mass/Vol] 327 mg/dL above high threshold 74 - 99 VR-Bseemun-Ol [place] Work Phone: Potassium [Moles/Vol] 3.7 mmol/L 3.5 - 5.3 RW-Ckptjcn-Lq h[place] Work Phone: Protein [Mass/Vol] 6.7 g/dL 6.4 - 8.2 MP-Uro logy-[place] Work Phone: Sodium [Moles/Vol] 130 mmol/L below low threshold 136 - 145 ZK-Smvfofm-Qz [place] Work Phone: Urea nitrogen [Mass/Vol] 16 mg/dL 6 - 23 EA-Oagoqew-Fp [place] Work Phone: Lipase, Serumon 11-10-2022 Lipase [Catalytic activity/Vol] 12 U/L 9 - 82 OF-Vmouald-Df [place] Work Phone: Comment on above: Venipuncture immedia tely after or during the administration of Metamizole may lead to falsely low results. Testing should be performed immediately prior to Metamizole dosing. F-dxsayo-w-benzoquinone imine (metabolite of Acetaminophen) will generate erroneously low results in samples for patients that have taken toxic doses of acetaminophen. No Panel Informationon 11-10 54 {mL/min/1.73m2} Abnormal >90 MP-Uro logy-[place] Work Phone: Comment on above: CALCULATIONS OF SACHIN MATED GFR ARE PERFORMED USING THE 2020 CKD-EPI STUDY REFIT EQUATION WITHOUT THE RACE VARIABLE FOR THE IDMS-TRACEABLE CREATININE METHODS.https://jasn.asnjournals.org/content//ASN .4366275500 Provider Note - ED v3on 03-0 Provider Note - ED v3 Normal [facility] Risk Screen - Adult Emergenc yon 11-10-2022 Risk Screen - Adult Emergency Normal [facility] Triage - EDon 11-10-2022 Triage - ED Normal [facility] UA MICROSCOPICon 11-10-2022 BACTERIA 1+ /HPF Abnormal [facility] Comment on above: Performed By: #### U AMIC ####[place] [address] Mucus Ql (Urine sed) 1+ /LPF Normal [facility] Comment on above: Performed By: #### U AMIC ####[place] [address] RBC 37 /HPF Abnormal 0-5 [facility] Comment on above: Performed By: #### U AMIC ####[place] [address] SQUAMOUS EPITH. CELLS 18 /HPF Normal [facility] Comment on above: Performed By: #### U AMIC ####[place] [id number] WBC (U) [#/Vol] /uL Abnormal 0-5 [facility] Comment on above: Performed By: #### U AMIC ####[place] [address] WBC CLUMPS FEW Normal [facility] Comment on above: Performed By: #### U AMIC ####[address] [address] URINALYSISon 11-10-2022 Appearance (U) HAZY Normal CLEAR [facility] Comment on above: Performed By: #### U A ####[place] [address] Bilirubin Ql (U) Negative Normal NEGATIVE [facility] Comment on above: Performed By: #### U A ####[place] [address] Color (U) Silke Normal STRAW,YELLO W [facility] Comment on above: Performed By: #### U A ####[place] [address] Glucose Ql (U) >=500(3+) Abnormal NEGATIVE [facility] Comment on above: Performed By: #### U A ####[place] [address] Hemoglobin Ql (U) MODERATE(2+) Abnormal NEGATIVE [facility] Comment on above: Performed By: #### U A ####[place] [address] Ketones Ql (U) Negative Normal NEGATIVE [facility] Comment on above: Performed By: #### U A ####[place] [address] Leukocyte esterase Test strip Ql (U) SMALL(1+) Abnormal NEGATIVE [facility] Comment on above: Performed By: #### U A ####[place] [address] Nitrite Ql (U) Negative Normal NEGATIVE [facility] Comment on above: Performed By: #### U A ####[place] [address] pH (U) 6.0 [pH] Normal 5.0 - 8.0 [facility] Comment on above: Performed By: #### U A ####[place] [address] Protein Ql (U) >=500(3+) Abnormal NEGATIVE [facility] Comment on above: Performed By: #### U A ####[place] [address] Specific gravity (U) [Rel density] 1.022 Normal 1.005 - 1.035 [facility] Comment on above: Performed By: #### U A ####[place] [id number] [place] [address] Urobilinogen (U) [Mass/Vol] 4.0 mg/dL High 0.0 - 1.9 [facility] Comment on above: Result Comment: SOME PIGMENTS AND MEDICATIONS MAY CAUSE AFALSE POSITIVE UROBILINOGEN Performed By: #### U A ####[id number] [place] [address] Urinalysison 11-10-2022 Color (U) Silke See Below AG-Qvyizmt-Np [place] Work Phone: [phone] Comment on above: Reference Range: STR AW,YELLOW Glucose Ql (U) >=500(3+) Abnormal NEGATIVE MP-Urology -[place] Work Phone: [phone] Ketones Ql (U) Negative NEGATIVE MP-Urology -[place] Work Phone: Leukocyte esterase Test strip Ql (U) SMALL(1+) Abnormal NEGATIVE BX-Ujvcksm-Ty [place] Work Phone: [phone] pH (U) 6.0 [pH] 5.0 - 8.0 XK-Wanqpvd-Im [place] Work Phone: [phone] Protein (U) [Mass/Vol] >=500(3+) Abnormal NEGATIVE SB-Dgzeatc-Oc [place] Work Phone: [phone] RBC (U) [#/Vol] MODERATE(2+) Abnormal NEGATIVE MP-Urol ogy-[place] Work Phone: Specific gravity (U) [Rel density] 1.022 1 See Below BL-Jzvszax-Ed [place] Work Phone: [phone] Comment on above: Reference Range: 1.0 05 - 1.035 Urinalysis Negative NEGATIVE NH-Uvwowbj-Fs [place] Work Phone: Urinalysis 4.0 mg/dL above high threshold 0.0 - 1.9 LJ-Iyaovgf-Az [place] Work Phone: Comment on above: SOME PIGMENTS AND ME DICATIONS MAY CAUSE AFALSE POSITIVE UROBILINOGEN Urinalysis HAZY CLEAR UM-Ylmepmn-Hb hland Work Phone: Urinalysis, Microscopicon Urinalysis, Microscopic 1+ Abnormal ES-Pcjsxqq-Mc [place] Work Phone: Urinalysis, Microscopic 18 {/HPF} JN-Ufbziid-Fz [place] Work Phone: Urinalysis, Microscopic 37 {/HPF} Abnormal 0-5 AX-Cjvxhgs-Cq h[place] Work Phone: Urinalysis, Microscopic FEW II-Advihwb-Dm h[place] Work Phone: Urinalysis, Microscopic >182 Abnormal 0-5 XN-Rafpahz-Ra [place] Work Phone: CHEMISTRYOrdered By: Lab ROP User on 11-07-2022 Glucose [Mass/Vol] 394 mg/dL High 55 - 99 mg/dL [facility] [place] Subsection POC Device SN [id number] Invalid Interpretation Code FT POC Subsection POC User ID [id number] Invalid Interpretation Code [facility] [place] Subsection POC Username ALEJANDRO DE LUNA Invalid Interpretation Code [facility] [place] Subsection Glucose [Mass/Vol] 454 mg/dL Invalid Interpretation Code 55 - 99 mg/dL [facility] [place] Subsection Comment on above: Result Comment: Francisco cook RN/ POC Device SN [id number] Invalid Interpretation Code [facility] [place] Subsection POC User ID [id number] Invalid Interpretation Code [facility] [place] P[place] Subsection POC Username MONICALAURENCE GEE Invalid Interpretation Code [facility] [place] Subsection CHEMISTRYOrdered By: SYSTEM SYSTEM on 11-07-2022 Albumin [Mass/Vol] 3.5 g/dL Normal 3.3 - 5.0 gm/dL [facility] Remisol Albumin/Globulin [Mass ratio] 0.9 {ratio} Low [...] 49 mL/min/1.73 m2 Low >=59mL/min/ 1.73 m2 [facility] [place] Chem S Globulin (S) [Mass/Vol] 3.9 g/dL Normal 1.4 - 4.0 gm/dL [facility]isol Glucose [Mass/Vol] 456 mg/dL Invalid Interpretation Code 55 - 199 mg/dL [facility] Comment on above: Result Comment: Crit ical Result verified by repeat analysis\Critical Result [id number] Called to ARMANDO CONKLIN AT by RICHARD QUEEN And Read Back For Confirmation at: 11/07/2022 10:19:50 Lipase [Catalytic activity/Vol] 25 U/L Normal 13 - 58 unit/L [facility] Remisol Potassium [Moles/Vol] 4.5 mmol/L Normal 3.5 - 5.3 mmol/L [facility] Remisol Protein [Mass/Vol] 7.4 g/dL Normal 6.0 - 7.8 gm/dL [facility]isol Sodium [Moles/Vol] 129 mmol/L Low 135 - 145 mmol/L [facility] Remisol Urea nitrogen [Mass/Vol] 20 mg/dL Normal 5 - 21 mg/dL [facility] Remisol Urea nitrogen/Creatinine [Mass ratio] 17 mg/mg Normal 10 - 20 [facility] Remisol HEMATOLOGYOrdered By: SYSTEM SYSTEM on 11-07-2022 Basophils/100 WBC (Bld) 0.2 % Normal 0.0 - 2.0 % [facility] [...] 257.0 E9/L Normal 150.0 - 500.0 E9/L [facility] HemeAutoSS RBC (Bld) [#/Vol] 4.5 E12/L Normal 4.3 - 5.9 E12/L [facility] HemeAutoSS WBC corrected for nucl RBC Auto (Bld) [#/Vol] 15.6 E9/L High 4.0 - 11.0 E9/L [facility] HemeAutoSS Comment on above: Result Comment: Slid e reviewed by AG. SEROLOGYOrdered By: Sarah Galeano on 11-07-2022 Beta hCG Ql Negative (11/07/22 9:51 AM) Normal [facility] Man Sero URINALYSISOrdered By: Tari Galeano on 11-07-2022 Bacteria [...] Interpretation Code Negative [facility] UA Auto SS Patriot.plasma/Lithi um.RBC (Bld) [Mass ratio] >30 /HPF Invalid [...] Desc Clean Catch (11/07/22 9:40 AM) Normal [facility] UA Auto SS Urobilinogen Qn (U) 0.8034820 {Jesus'U}/dL Normal 0.0 - 1.0 EU/dL [facility] UA Auto SS WBC Auto Ql (U) Negative (11/07/22 9:40 AM) Normal Negative [facility] UA Auto SS WBC LM.HPF (Urine sed) [#/Area] /[HPF] Invalid Interpretation Code 0-5/HPF [facility] UA Auto SS Clinical Event Note-ED Post Discharge Result Follow Up: Posion 10-18-2022 Clinical Event Note-ED Post Discharge Result Follow Up: Posi Normal [facility] Clinical Event Note-Overnigh t pulse ox studyon 10-18-2022 Clinical Event Note-Overnight pulse ox study Normal [facility] GLUCOSE-POCTon 10-18-2022 Glucose [Mass/Vol] 92 mg/dL Normal 74 - 99 [facility] Comment on above: Performed By: #### G MAURA ####[place] [address] Glucose [Mass/Vol] 91 mg/dL Normal 74 - 99 [facility] Comment on above: Performed By: #### G MAURA ####[place] [address] Clinical Event Note-Discharg e to be held todayon 10-17-2022 Clinical Event Note-Discharge to be held today Normal [facility] Discharge [id number] Discharge Profile2 Normal [facility] GLUCOSE-POCTon 10-17-2022 Glucose [Mass/Vol] 138 mg/dL High 74 - 99 [facility] Comment on above: Performed By: #### G MAURA ####[address] [address] Glucose [Mass/Vol] 144 mg/dL High 74 - 99 [facility] Comment on above: Performed By: #### G MAURA ####[address] [address] Glucose [Mass/Vol] 181 mg/dL High 74 - 99 [facility] Comment on above: Performed By: #### G MAURA ####[address] [address] Glucose [Mass/Vol] 154 mg/dL High 74 - 99 [facility] Comment on above: Performed By: #### G MAURA ####[address] [address] Order Reconciliationon 10-17 Order Reconciliation Normal [facility] BASIC METABOLIC PANELon Anion gap [Moles/Vol] 11 mmol/L Normal 10 - 20 [facility] Comment on above: Performed By: #### B MP ####[address] [address] Calcium [Mass/Vol] 8.4 mg/dL Low 8.6 - 10.3 [facility] Comment on above: Performed By: #### B MP ####[address] [address] Chloride [Moles/Vol] 103 mmol/L Normal 98 - 107 [facility] Comment on above: Performed By: #### B MP ####[address] [address] Creatinine [Mass/Vol] 0.71 mg/dL Normal 0.50 - 1.05 [facility] Comment on above: Performed By: #### B MP ####[address] [address] eGFR FEMALE >90 Normal >90 [facility] Comment on above: Result Comment: CALC ULATIONS OF ESTIMATED GFR ARE PERFORMED USING THE 2020 CKD-EPI STUDY REFIT EQUATION WITHOUT THE RACE VARIABLE FOR THE IDMS-TRACEABLE CREATININE METHODS.https://jasn.asnjournals.org/content/early/ASN .7387232016 Performed By: #### B MP ####[place] [address] Glucose [Mass/Vol] 124 mg/dL High 74 - 99 [facility] Comment on above: Performed By: #### B MP ####[place] [id number] HCO3 (Bld) [Moles/Vol] 26 mmol/L Normal 21 - 32 [facility] Comment on above: Performed By: #### B MP ####[place] [id number] Potassium [Moles/Vol] 3.7 mmol/L Normal 3.5 - 5.3 [facility] Comment on above: Performed By: #### B MP ####[address] [address] Sodium [Moles/Vol] 136 mmol/L Normal 136 - 145 [facility] Comment on above: Performed By: #### B MP ####[place] [id number] Urea nitrogen [Mass/Vol] 13 mg/dL Normal 6 - 23 [facility] Comment on above: Performed By: #### B MP ####[place] [id number] CBC AND DIFFERENTIALon 10-16 % AUTOMATED IMMATURE GRAN 0.2 % Normal 0.0 - 0.9 [facility] Comment on above: Result Comment: Alla ture Granulocyte Count (IG) includes promyelocytes, myelocytes and metamyelocytes but does not include bands. Percent differential counts (%) should be interpreted in the context of the absolute cell counts (cells/L). Performed By: #### C BCDF ####[address] [address] Basophils (Bld) [#/Vol] 0.07 10*3/uL Normal 0.00 - 0.10 [facility] Comment on above: Performed By: #### C BCDF ####[address] [address] Basophils/100 WBC (Bld) 0.9 % Normal 0.0 - 2.0 [facility] Comment on above: Performed By: #### C BCDF ####[address] [address] Eosinophils (Bld) [#/Vol] 0.25 10*3/uL Normal 0.00 - 0.70 [facility] Comment on above: Performed By: #### C BCDF ####[address] [address] Eosinophils/100 WBC (Bld) 3.1 % Normal 0.0 - 6.0 [facility] Comment on above: Performed By: #### C BCDF ####[address] [address] Erythrocyte distribution width (RBC) [Ratio] 13.2 % Normal 11.5 - 14.5 [facility] Comment on above: Performed By: #### C BCDF ####[address] [address] Hematocrit (Bld) [Volume fraction] 39.6 % Normal 36.0 - 46.0 [facility] Comment on above: Performed By: #### C BCDF ####[address] [address] Hemoglobin (Bld) [Mass/Vol] 12.9 g/dL Normal 12.0 - 16.0 [facility] Comment on above: Performed By: #### C BCDF ####[address] [address] Lymphocytes (Bld) [#/Vol] 2.55 10*3/uL Normal 1.20 - 4.80 [facility] Comment on above: Performed By: #### C BCDF ####[address] [address] Lymphocytes/100 WBC (Bld) 31.3 % Normal 13.0 - 44.0 [facility] Comment on above: Performed By: #### C BCDF ####[address] [address] MCHC (RBC) [Mass/Vol] 32.6 g/dL Normal 32.0 - 36.0 [facility] Comment on above: Performed By: #### C BCDF ####[address] [address] MCV (RBC) [Entitic vol] 93 fL Normal 80 - 100 [facility] Comment on above: Performed By: #### C BCDF ####[address] [address] Monocytes (Bld) [#/Vol] 0.55 10*3/uL Normal 0.10 - 1.00 [facility] Comment on above: Performed By: #### C BCDF ####[address] [address] Monocytes/100 WBC (Bld) 6.8 % Normal 2.0 - 10.0 [facility] Comment on above: Performed By: #### C BCDF ####[address] [address] Neutrophils (Bld) [#/Vol] 4.70 10*3/uL Normal 1.20 - 7.70 [facility] Comment on above: Result Comment: Perc ent differential counts (%) should be interpreted in the context of the absolute cell counts (cells/L). Performed By: #### C BCDF ####[address] [address] Neutrophils/100 WBC (Bld) 57.7 % Normal 40.0 - 80.0 [facility] Comment on above: Performed By: #### C BCDF ####[address] [address] Platelets (Bld) [#/Vol] 235 10*3/uL Normal 150 - 450 [facility] Comment on above: Performed By: #### C BCDF ####[address] [address] RBC 4.24 x10E12/L Normal 4.00 - 5.20 [facility] Comment on above: Performed By: #### C BCDF ####[place] [id number] WBC (Bld) [#/Vol] 8.1 10*3/uL Normal 4.4 - 11.3 [facility] Comment on above: Performed By: #### C BCDF ####[place] [id number] Daily Progress Note-Medicine on 10-16-2022 Daily Progress Note-Medicine Normal [facility] GLUCOSE-POCTon 10-16-2022 Glucose [Mass/Vol] 172 mg/dL High 74 - 99 [facility] Comment on above: Performed By: #### G MAURA ####[address] [address] Glucose [Mass/Vol] 166 mg/dL High 74 - 99 [facility] Comment on above: Performed By: #### G MAURA ####[address] [address] Glucose [Mass/Vol] 270 mg/dL High 74 - 99 [facility] Comment on above: Performed By: #### G MAURA ####[address] [address] HEMOGLOBIN A1Con 10-16-2022 Glucose [Mass/Vol] 217 mg/dL Normal [facility] Comment on above: Performed By: #### H BA1E ####[address] [address] HbA1c (Bld) [Mass fraction] 9.2 % Abnormal [facility] Comment on above: Result Comment: Diag nosis of Diabetes-Adults Non-Diabetic: < or = 5.6% Increased risk for developing diabetes: 5.7-6.4% Diagnostic of diabetes: > or = 6.5%. Monitoring of Diabetes Age (y) Therapeutic Goal (%) Adults: >18 <7.0 Pediatrics: 13-18 <7.5 7-12 <8.0 0- 6 7.5-8.5 [employer]. Diabetes Care 33(S1), Sep 2009. Performed By: #### H BA1E ####[address] [address] Admission Risk Screen - Adul ton 10-15-2022 Admission Risk Screen - Adult Normal [facility] BASIC METABOLIC PANELon Anion gap [Moles/Vol] 7 mmol/L Low 10 - 20 [facility] Comment on above: Performed By: #### B MP ####[place] [id number] Calcium [Mass/Vol] 8.7 mg/dL Normal 8.6 - 10.3 [facility] Comment on above: Performed By: #### B MP ####[place] [id number] Chloride [Moles/Vol] 101 mmol/L Normal 98 - 107 [facility] Comment on above: Performed By: #### B MP ####[place] [id number] Creatinine [Mass/Vol] 0.81 mg/dL Normal 0.50 - 1.05 [facility] Comment on above: Performed By: #### B MP ####[address] [address] eGFR FEMALE >90 Normal >90 [facility] Comment on above: Result Comment: CALC ULATIONS OF ESTIMATED GFR ARE PERFORMED USING THE 2020 CKD-EPI STUDY REFIT EQUATION WITHOUT THE RACE VARIABLE FOR THE IDMS-TRACEABLE CREATININE METHODS.https://jasn.asnjournals.org/content///ASN .8126899009 Performed By: #### B MP ####[address] [address] Glucose [Mass/Vol] 219 mg/dL High 74 - 99 [facility] Comment on above: Performed By: #### B MP ####[address] [address] HCO3 (Bld) [Moles/Vol] 32 mmol/L Normal 21 - 32 [facility] Comment on above: Performed By: #### B MP ####[address] [address] Potassium [Moles/Vol] 4.2 mmol/L Normal 3.5 - 5.3 [facility] Comment on above: Performed By: #### B MP ####[address] [address] Sodium [Moles/Vol] 136 mmol/L Normal 136 - 145 [facility] Comment on above: Performed By: #### B MP ####[address] [address] Urea nitrogen [Mass/Vol] 14 mg/dL Normal 6 - 23 [facility] Comment on above: Performed By: #### B MP ####[place] [id number] Covid 19 Resultson 3 SARS-CoV-2 (COVID-19) RNA GLENNA+probe Ql (Unsp spec) Normal [facility] Daily Progress Note-Medicine on 10-15-2022 Daily Progress Note-Medicine Normal [facility] Discharge Planning [id number] 10-15-2022 Discharge Planning Note2 Normal [facility] GLUCOSE-POCTon 10-15-2022 Glucose [Mass/Vol] 105 mg/dL High 74 - 99 [facility] Comment on above: Performed By: #### G MAURA ####[address] [address] Glucose [Mass/Vol] 172 mg/dL High 74 - 99 [facility] Comment on above: Performed By: #### G MAURA ####[address] [address] Glucose [Mass/Vol] 280 mg/dL High 74 - 99 [facility] Comment on above: Performed By: #### G MAURA ####[address] [address] Glucose [Mass/Vol] 239 mg/dL High 74 - 99 [facility] Comment on above: Performed By: #### G MAURA ####[address] [address] Glucose [Mass/Vol] 151 mg/dL High 74 - 99 [facility] Comment on above: Performed By: #### G MAURA ####[address] [address] Glucose [Mass/Vol] 138 mg/dL High 74 - 99 [facility] Comment on above: Performed By: #### G MAURA ####[address] [address] Glucose [Mass/Vol] 180 mg/dL High 74 - 99 [facility] Comment on above: Performed By: #### G MAURA ####[address] [address] Glucose [Mass/Vol] 498 mg/dL High 74 - 99 [facility] Comment on above: Result Comment: RN/Evangelista D NOTIFIED Performed By: #### G MAURA ####[address] [address] MAGNESIUMon 10-15-2022 Magnesium [Mass/Vol] 1.85 mg/dL Normal 1.60 - 2.40 [facility] Comment on above: Performed By: #### M G ####[address] [address] Order Reconciliationon 10-15 Order Reconciliation Normal [facility] PHOSPHORUSon 10-15-2022 Phosphate [Mass/Vol] 3.3 mg/dL Normal 2.5 - 4.9 [facility] Comment on above: Result Comment: The performance characteristics of phosphorus testing in heparinized plasma have been validated by the individual laboratory site where testing is performed. Testing on heparinized plasma is not approved by the FDA; however, such approval is not necessary. Performed By: #### P HOS ####[address] [address] Patient Profile - Adult v2on 10-15-2022 Patient Profile - Adult v2 Normal [facility] BETA-HYDROXYBUTYRATEon 10-14 BETA-HYDROXYBUTYRATE 0.50 mmol/L High 0.02 - 0.[address] [facility] Comment on above: Result Comment: The beta-hydroxybutyrate test performance characteristics have been validated by [facility] laboratory. This test has not been approved by the FDA; however, such approval is not necessary. Performed By: #### B HB2 ####[address] [address] BLOOD CULTURE, BACTERIALon 0 10-14-2022 BLOOD CULTURE, BACTERIAL Normal [facility] Comment on above: Performed By: #### B LDC ####[id number] [place] [address] BLOOD CULTURE, BACTERIAL Normal [facility] Comment on above: Performed By: #### B LDC ####[id number] [place] [address] CBC AND DIFFERENTIALon 10-14 % AUTOMATED IMMATURE GRAN 0.4 % Normal 0.0 - 0.9 [facility] Comment on above: Result Comment: Alla ture Granulocyte Count (IG) includes promyelocytes, myelocytes and metamyelocytes but does not include bands. Percent differential counts (%) should be interpreted in the context of the absolute cell counts (cells/L). Performed By: #### C BCDF ####[address] [address] Basophils (Bld) [#/Vol] 0.06 10*3/uL Normal 0.00 - 0.10 [facility] Comment on above: Performed By: #### C BCDF ####[address] [address] Basophils/100 WBC (Bld) 0.8 % Normal 0.0 - 2.0 [facility] Comment on above: Performed By: #### C BCDF ####[address] [address] Eosinophils (Bld) [#/Vol] 0.06 10*3/uL Normal 0.00 - 0.70 [facility] Comment on above: Performed By: #### C BCDF ####[address] [address] Eosinophils/100 WBC (Bld) 0.8 % Normal 0.0 - 6.0 [facility] Comment on above: Performed By: #### C BCDF ####[address] [address] Erythrocyte distribution width (RBC) [Ratio] 12.5 % Normal 11.5 - 14.5 [facility] Comment on above: Performed By: #### C BCDF ####[address] [address] Hematocrit (Bld) [Volume fraction] 43.2 % Normal 36.0 - 46.0 [facility] Comment on above: Performed By: #### C BCDF ####[address] [address] Hemoglobin (Bld) [Mass/Vol] 14.6 g/dL Normal 12.0 - 16.0 [facility] Comment on above: Performed By: #### C BCDF ####[place] [id number] Lymphocytes (Bld) [#/Vol] 1.51 10*3/uL Normal 1.20 - 4.80 [facility] Comment on above: Performed By: #### C BCDF ####[address] [address] Lymphocytes/100 WBC (Bld) 19.6 % Normal 13.0 - 44.0 [facility] Comment on above: Performed By: #### C BCDF ####[address] [address] MCHC (RBC) [Mass/Vol] 33.8 g/dL Normal 32.0 - 36.0 [facility] Comment on above: Performed By: #### C BCDF ####[address] [address] MCV (RBC) [Entitic vol] 90 fL Normal 80 - 100 [facility] Comment on above: Performed By: #### C BCDF ####[address] [address] Monocytes (Bld) [#/Vol] 0.47 10*3/uL Normal 0.10 - 1.00 [facility] Comment on above: Performed By: #### C BCDF ####[address] [address] Monocytes/100 WBC (Bld) 6.1 % Normal 2.0 - 10.0 [facility] Comment on above: Performed By: #### C BCDF ####[address] [address] Neutrophils (Bld) [#/Vol] 5.56 10*3/uL Normal 1.20 - 7.70 [facility] Comment on above: Result Comment: Perc ent differential counts (%) should be interpreted in the context of the absolute cell counts (cells/L). Performed By: #### C BCDF ####[address] [address] Neutrophils/100 WBC (Bld) 72.3 % Normal 40.0 - 80.0 [facility] Comment on above: Performed By: #### C BCDF ####[address] [address] Platelets (Bld) [#/Vol] 305 10*3/uL Normal 150 - 450 [facility] Comment on above: Performed By: #### C BCDF ####[address] [address] RBC 4.80 x10E12/L Normal 4.00 - 5.20 [facility] Comment on above: Performed By: #### C BCDF ####[address] [address] WBC (Bld) [#/Vol] 7.7 10*3/uL Normal 4.4 - 11.3 [facility] Comment on above: Performed By: #### C BCDF ####[address] [address] CHEST 1 VIEWon 10-14-2022 CHEST 1 VIEW Normal [facility] COMPREHENSIVE PANELon 2022 Albumin [Mass/Vol] 4.2 g/dL Normal 3.4 - 5.0 [facility] Comment on above: Order Comment: Horvath d- RB to Shi , 10/14/2022 20:33 Performed By: #### C MP ####[address] [address] ALP [Catalytic activity/Vol] 71 U/L Normal 33 - 110 [facility] Comment on above: Order Comment: Horvath d- RB to Shi , 10/14/2022 20:33 Performed By: #### C MP ####[address] [address] ALT [Catalytic activity/Vol] 17 U/L Normal 7 - 45 [facility] Comment on above: Order Comment: Horvath d- RB to Shi , 10/14/2022 20:33 Result Comment: Bridget ents treated with Sulfasalazine may generate falsely decreased results for ALT. Performed By: #### C MP ####[address] [address] Anion gap [Moles/Vol] 13 mmol/L Normal 10 - 20 [facility] Comment on above: Order Comment: [place]ath d- RB to [place] , 10/14/2022 20:33 Performed By: #### C MP ####[address] [address] AST [Catalytic activity/Vol] 11 U/L Normal 9 - 39 [facility] Comment on above: Order Comment: [place]ath d- RB to [place] , 10/14/2022 20:33 Performed By: #### C MP ####[address] [address] Bilirubin [Mass/Vol] 0.6 mg/dL Normal 0.0 - 1.2 [facility] Comment on above: Order Comment: [place]ath d- RB to [place] , 10/14/2022 20:33 Performed By: #### C MP ####[address] [address] Calcium [Mass/Vol] 10.0 mg/dL Normal 8.6 - 10.3 [facility] Comment on above: Order Comment: [place] d- RB to [place] , 10/14/2022 20:33 Performed By: #### C MP ####[address] [address] Chloride [Moles/Vol] 88 mmol/L Low 98 - 107 [facility] Comment on above: Order Comment: Hor[place]ath d- RB to Shi , 10/14/2022 20:33 Performed By: #### C MP ####[address] [address] Creatinine [Mass/Vol] 1.22 mg/dL High 0.50 - 1.05 [facility] Comment on above: Order Comment: [place] d- RB to Shi , 10/14/2022 20:33 Performed By: #### C MP ####[address] [address] GFR/1.73 sq M.predicted among non-blacks MDRD (S/P/Bld) [Vol rate/Area] 56 mL/min/{1.73_m2} Abnormal >90 [facility] Comment on above: Order Comment: Horvath d- RB to Shi , 10/14/2022 20:33 Result Comment: CALC ULATIONS OF ESTIMATED GFR ARE PERFORMED USING THE 2020 CKD-EPI STUDY REFIT EQUATION WITHOUT THE RACE VARIABLE FOR THE IDMS-TRACEABLE CREATININE METHODS.https://jasn.asnjournals.org/content/early//ASN .7182988434 Performed By: #### C MP ####[address] [address] Glucose [Mass/Vol] 727 mg/dL Critically high 74 - 99 [facility] Comment on above: Order Comment: Horvath d- RB to Shi , 10/14/2022 20:33 Result Comment: Call ed- RB to Shi , 10/14/2022 20:33 Performed By: #### C MP ####[address] [address] HCO3 (Bld) [Moles/Vol] 32 mmol/L Normal 21 - 32 [facility] Comment on above: Order Comment: [place] d- RB to [place] , 10/14/2022 20:33 Performed By: #### C MP ####[address] [address] Potassium [Moles/Vol] 4.8 mmol/L Normal 3.5 - 5.3 [facility] Comment on above: Order Comment: [place] d- RB to [place] , 10/14/2022 20:33 Performed By: #### C MP ####[address] [address] Protein [Mass/Vol] 7.2 g/dL Normal 6.4 - 8.2 [facility] Comment on above: Order Comment: Horvath d- RB to Shi , 10/14/2022 20:33 Performed By: #### C MP ####[place] [id number] Sodium [Moles/Vol] 128 mmol/L Low 136 - 145 [facility] Comment on above: Order Comment: [place]ath d- RB to [place] , 10/14/2022 20:33 Performed By: #### C MP ####[place] [id number] Urea nitrogen [Mass/Vol] 19 mg/dL Normal 6 - 23 [facility] Comment on above: Order Comment: [place]ath d- RB to [place] , 10/14/2022 20:33 Performed By: #### C MP ####[address] [address] HCG,URINEon 10-14-2022 Beta HCG ( test) Ql (U) Negative Normal Negative [facility] Comment on above: Performed By: #### H CGU ####[address] [address] INFLUENZA A/B, COVID 2019 PC R,SYMPTOMATICon 10-14-2022 INFLUENZA A, PCR Not detected Normal Not Detected [facility] Comment on above: Result Comment: Resp iratory virus testing is performed routinely by PCR for Influenza A/B and RSV. Not Detected results do not preclude Influenza A/B or RSV infections since the adequacy of sample collection or low viral burden may impact the clinical sensitivity of this test method. Performed By: #### C OINP ####[address] [address] INFLUENZA B, PCR Not detected Normal Not Detected [facility] Comment on above: Result Comment: Resp iratory virus testing is performed routinely by PCR for Influenza A/B and RSV. Not Detected results do not preclude Influenza A/B or RSV infections since the adequacy of sample collection or low viral burden may impact the clinical sensitivity of this test method. Performed By: #### C OINP ####[place] [address] SARS-CoV-2 (COVID-19) RNA GLENNA+probe Ql (Unsp spec) Not detected Normal Not Detected [facility] Comment on above: Result Comment: .Sherri s test has received FDA Emergency Use Authorization (EUA) and has beenverified by [facility]. This test is onlyauthorized for the duration of time that circumstances exist to justify theauthorization of the emergency use of in vitro diagnostic tests for thedetection of SARS-CoV-2 virus and/or diagnosis of COVID-19 infection undersection 564(b)(1) of the Act, 21 U.S.C. 360bbb-3(b)(1), unless theauthorization is terminated or revoked sooner.[facility] is certified under CLIA-88 asqualified to perform high complexity testing. Testing is performed in [facility] laboratory located at [address] [place] [address].SARS-CoV-2/Flu/RSV Multiplex Test:Fact sheet for providers: https://www.fda.gov/media/633424/downloadFact sheet for patients: https://www.fda.gov/media/546617/download Performed By: #### C OINP ####[place] [address] Lab Specimen Source Nasal, Nasopharyngeal Normal [facility] Comment on above: Performed By: #### C OINP ####[place] [address] LACTATEon 10-14-2022 Lactate [Moles/Vol] 2.8 mmol/L High 0.4 - 2.0 [facility] Comment on above: Result Comment: [place] puncture immediately after or during the administration of Metamizole may lead to falsely low results. Testing should be performed immediately prior to Metamizole dosing. Performed By: #### L ACT ####[address] [address] MAGNESIUMon 10-14-2022 Magnesium [Mass/Vol] 1.83 mg/dL Normal 1.60 - 2.40 [facility] Comment on above: Performed By: #### M G ####[address] [address] Provider Note - ED v3on 02-0 Provider Note - ED v3 Normal [facility] Risk Screen - Adult Emergenc yon 10-14-2022 Risk Screen - Adult Emergency Normal [facility] TROPONIN I, HIGH SENSITIVITY on 10-14-2022 TROPONIN I, HIGH SENSITIVITY 4 ng/L Normal 0 - 13 [facility] Comment on above: Result Comment: .Les s [...] is performed using a differenttesting methodology [facility] than at [facility]. Direct result comparisons should onlybe made within the same method. Performed By: #### T RPHS ####[address] [address] TROPONIN I, HIGH SENSITIVITY 4 ng/L Normal 0 - 13 [facility] Comment on above: Result Comment: .Les s [...] is performed using a differenttesting methodology at [facility] than at [facility]. Direct result comparisons should onlybe made within the same method. Performed By: #### T RPHS ####[address] [address] Triage - EDon 10-14-2022 Triage - ED Normal [facility] UA MICROSCOPICon 10-14-2022 BACTERIA 1+ /HPF Abnormal [facility] Comment on above: Performed By: #### U AMIC ####[place] [id number] RBC 1 /HPF Normal 0-5 [facility] Comment on above: Performed By: #### U AMIC ####[address] [address] WBC 31 /HPF Abnormal 0-5 [facility] Comment on above: Performed By: #### U AMIC ####[address] [address] URINALYSIS WITH CULTURE IF I NDICATEDon 10-14-2022 Appearance (U) CLEAR Normal CLEAR [facility] Comment on above: Performed By: #### U ARFX ####[address] [address] Bilirubin Ql (U) Negative Normal NEGATIVE [facility] Comment on above: Performed By: #### U ARFX ####[address] [address] Color (U) Colorless Normal STRAW,YELLO W [facility] Comment on above: Performed By: #### U ARFX ####[address] [place] [address] Glucose Ql (U) >=500(3+) Abnormal NEGATIVE [facility] Comment on above: Performed By: #### U ARFX ####[place] [address] Hemoglobin Ql (U) Negative Normal NEGATIVE [facility] Comment on above: Performed By: #### U ARFX ####[place] [address] Ketones Ql (U) 20(1+) Abnormal NEGATIVE [facility] Comment on above: Performed By: #### U ARFX ####[place] [address] Leukocyte esterase Test strip Ql (U) SMALL(1+) Abnormal NEGATIVE [facility] Comment on above: Performed By: #### U ARFX ####[place] [address] Nitrite Ql (U) Negative Normal NEGATIVE [facility] Comment on above: Performed By: #### U ARFX ####[place] [address] pH (U) 7.0 [pH] Normal 5.0 - 8.0 [facility] Comment on above: Performed By: #### U ARFX ####[place] [address] Protein Ql (U) Negative Normal NEGATIVE [facility] Comment on above: Performed By: #### U ARFX ####[place] [address] Specific gravity (U) [Rel density] 1.028 Normal 1.005 - 1.035 [facility] Comment on above: Performed By: #### U ARFX ####[place] [address] Urobilinogen (U) [Mass/Vol] mg/dL Normal 0.0 - 1.9 [facility] Comment on above: Performed By: #### U ARFX ####[place] [address] URINE CULTURE,BACTERIALon URINE CULTURE,BACTERIAL Normal [facility] Comment on above: Performed By: #### U [facility] ####[id number] [place] [address] D-DIMERon 10-10-2022 DIMER < 200 Normal <230 [facility] Comment on above: Order Comment: A D-D gaby result of <230 ng/mL DDU has a high negative predictive value for DVT and PE when combined with a clinical assessment of low to moderate probability. This cut-off value is specific for HemosIL D-dimer assay and values obtained using different methods may not be used interchangeably. Performed By: #### D GABY #### [facility] [address] [facility] [place] [address] D-DIMEROrdered By: Antwan ash on 10-10-2022 Fibrin D-dimer DDU (PPP) [Mass/Vol] [facility] MARYVALEF [facility] Interpretation and review of laboratory results Normal [facility] A D-Dimer result of <230 ng/mL DDU has a high negative predictive value for DVT and PE when combined with a clinical assessment of low to moderate probability. This cut-off value is specific for HemosIL D-dimer assay and values obtained using different methods may not be used interchangeably. [facility] ED Noteson 10-10-2022 Cable Tv Installer Authentication Interface Message Text Pt aware kesha has been set up for her and she will have to pay bill. Pt verbalized understanding. Normal [facility] [employer]er Authentication Interface Message Text Current blood glucose 279. Normal [facility] [employer]er Authentication Interface Message Text Pt eating without difficulty, elaine has slightly improved. Medicated per NOV. Awaiting to speak with provider for update. Normal [facility] [employer] Installer Authentication Interface Message Text Cosigned insulin with Temitope UNDER[place]OD Normal [facility] [employer] Installer Authentication Interface Message Text Pt c/o nausea and elaine. Dr. Rader made aware. Normal [facility] Xiaoi Robert Authentication Interface Message Text Per lab, d-dimer hemolyzed for third time. Communicated with dr. Rader Normal [facility] GLUCOSE, FINGERSTICK-IN OFFI CEon 10-10-2022 Glucose [Mass/Vol] 279 mg/dL High 68-110 [facility] Comment on above: Performed By: #### [id number] #### NURSING GLUCOSE PROGRAM [address] [place], [address] Glucose [Mass/Vol] 279 mg/dL High 68 - 110 mg/dL [facility] Interpretation and review of laboratory results Abnormal [facility] HIGH SENSITIVITY TROPONIN Io n 10-10-2022 HS TROPONIN I < 4 Normal <=15 [facility] Comment on above: Order Comment: High Sensitivity Cardiac Troponin I (hsTnI) assay has replaced the conventional troponin assay at [facility]. All results are reported in whole numbers representing ng/L. Repeat test times for ruling out acute coronary syndrome (ACS) are every 2 hours instead of every 6-8 hours. Gtilo-co-fzpl conventional troponin (I-stat) will remain available in the [facility] ED ??? results obtained by different labs [...] Performed By: #### H STRP #### [facility] [address] [facility] [place] [address] Troponin I.cardiac DL <= 0.01 ng/mL [Mass/Vol] ng/L NINF - 15 ng/L [facility] POTASSIUMon 10-10-2022 Potassium [Moles/Vol] 4.1 mmol/L Normal 3.3-5.3 [facility] Comment on above: Performed By: #### K #### [facility] [address] [facility] [place] [address] Interpretation and review of laboratory results Normal [facility] Potassium [Moles/Vol] 4.1 mmol/L 3.3 - 5.3 mmol/L [facility] Troponin I.cardiac DL <= 0.0 1 ng/mL [Mass/Vol]on 10-10-2022 Interpretation and review of laboratory results Normal [facility] High Sensitivity Car diac Troponin I (hsTnI) assay has replaced the conventional troponin assay at [facility]. All results are reported in whole numbers representing ng/L. Repeat test times for ruling out acute coronary syndrome (ACS) are every 2 hours instead of every 6-8 hours. [id number]-ei-xnwx conventional troponin (I-stat) will remain available in the [facility] results obtained by different labs or [...] 1 points, >45 ng/L = 2 points). [facility] XR CHEST 2 VIEW PA+LATon XR CHEST 2 VIEW PA+LAT EXAMINATION: XR CHEST 2 VIEW PA+LAT 10/09/2022 10:37 PM CLINICAL HISTORY: Chest pain ASSOCIATED DIAGNOSIS: Chest pain ORDERING PROVIDER: ANDREI RADER TECHNCLAUDE NOTE: COMPARISON: None FINDINGS: Cardiomediastinal silhouette: Normal. Lungs/Pleura: No focal pulmonary consolidation, effusion or pneumothorax. Musculoskeletal: Unremarkable. IMPRESSION: No acute process. MACRO: None Normal [facility] B TYPE NATRIURETIC PEPTIDEon 10-09-2022 Natriuretic peptide B (Bld) [Mass/Vol] 22.0 pg/mL Normal <100.0 [facility] Comment on above: Performed By: #### B PL #### [facility] [address] [place] [address] [place] [address] Interpretation and review of laboratory results Normal [facility] Natriuretic peptide B (Bld) [Mass/Vol] 22.0 pg/mL NINF - 100.0 pg/mL [facility]...Exactly BASIC METABOLIC PANELon Anion gap [Moles/Vol] 17 mmol/L Normal 10-20 [facility] Comment on above: Performed By: #### C H8 #### [facility] [address] [place] [address] [place] [address] Calcium [Mass/Vol] 9.6 mg/dL Normal 8.4-10.4 [facility] Comment on above: Performed By: #### C H8 #### [facility] [address] [place] [address] [place] [address] Chloride [Moles/Vol] 97 mmol/L Normal 97-111 [facility] Comment on above: Performed By: #### C H8 #### [facility] [address] [place] [address] [place] [address] CO2 [Moles/Vol] 24 mmol/L Normal 21-30 [facility] Comment on above: Performed By: #### C H8 #### [facility] [address] [place] [address] [place] [address] Creatinine [Mass/Vol] 0.81 mg/dL Normal 0.50-1.10 [facility] Comment on above: Performed By: #### C H8 #### [facility] [address] [place] [address] [place] [address] ESTIMATED GFR (CKD-EPI) 92 mL/min/1.73sqm Normal >=60 [...] Inclusion of Race in Diagnosing Kidney Disease. [place] Journal of Kidney Diseases 2021;79(2):268-88.e1. 2. N Engl J Med 1 Vol. 385 Issue 19 Pages 3974-1898 Performed By: #### C H8 #### [facility] [address] [place] [address] [place] [address] Glucose [Mass/Vol] 282 mg/dL High 68-110 [facility] Comment on above: Performed By: #### C H8 #### [facility] [address] [place] [address] [place] [address] Potassium [Moles/Vol] 5.6 mmol/L High 3.3-5.3 [facility] Comment on above: Result Comment: Hemo lysis present Performed By: #### C H8 #### [facility] [address] [place] [address] [place] [address] Sodium [Moles/Vol] 132 mmol/L Low 135-148 [facility] Comment on above: Performed By: #### C H8 #### [facility] [address] [place] [address] [place] [address] Urea nitrogen [Mass/Vol] 20 mg/dL Normal 8-22 [facility] Comment on above: Performed By: #### C H8 #### [facility] [address] [place] [address] [place] [address] Basic metabolic 2000 panelon 10-09-2022 Anion gap [...] Reference: 1. Lexa C, Baljit M, Jono DC, et al.. A Unifying Approach for GFR Estimation: Recommendations of the NKF-ASN Task Force on Reassessing the Inclusion of Race in Diagnosing Kidney Disease. [place] Journal of Kidney Diseases 202;79(2):268-88.e1. 2. N Engl J Med 2020 Vol. 385 Issue 19 Pages 6706-0258 Glucose [Mass/Vol] 282 mg/dL High 68 - 110 mg/dL [facility] Interpretation and review of laboratory results Abnormal [facility] Potassium [Moles/Vol] 5.6 mmol/L High 3.3 - 5.3 mmol/L [facility] Comment on above: Hemolysis present Sodium [Moles/Vol] 132 mmol/L Low 135 - 148 mmol/L [facility] Urea nitrogen [Mass/Vol] 20 mg/dL 8 - 22 mg/dL [facility] CBC WITH DIFFERENTIALon Basophils (Bld) [#/Vol] 0.00 10*3/uL Normal 0.00-0.20 [facility] Comment on above: Performed By: #### D GABY #### [facility] [address] [place] [address] [place] [address] Basophils/100 WBC (Bld) 0.8 % Normal <=1.9 [facility] Comment on above: Performed By: #### Aida GABY #### [facility] [address] [place] [address] [place] [address] Eosinophils (Bld) [#/Vol] 0.10 10*3/uL Normal 0.00-0.70 [facility] Comment on above: Performed By: #### Aida GABY #### [facility] [address] [place] [address] [place] [address] Eosinophils/100 WBC (Bld) 1.2 % Normal 0.1-4.0 [facility] Comment on above: Performed By: #### Aida GABY #### [facility] [address] [place] [address] [place] [address] Erythrocyte distribution width (RBC) [Ratio] 13.9 % Normal 11.5-14.5 [facility] Comment on above: Performed By: #### D GABY #### [facility] [address] [place] [address] [place] [address] Hematocrit (Bld) [Volume fraction] 39.6 % Normal 36.0-46.0 [facility] Comment on above: Performed By: #### D GABY #### [facility] [address] [place] [address] [place] [address] Hemoglobin (Bld) [Mass/Vol] 13.4 g/dL Normal 12.0-15.0 [facility] Comment on above: Performed By: #### Aida GABY #### [facility] [address] [place] [address] [place] [address] Lymphocytes (Bld) [#/Vol] 2.10 10*3/uL Normal 1.00-4.80 [facility] Comment on above: Performed By: #### Aida GABY #### [facility] [address] [place] [address] [place] [address] Lymphocytes/100 WBC (Bld) 33.7 % Normal 24.0-44.0 [facility] Comment on above: Performed By: #### Aida GABY #### [facility] [address] [place] [address] [place] [address] MCH (RBC) [Entitic mass] 30.9 pg Normal 26.0-34.0 [facility] Comment on above: Performed By: #### Aida GABY #### [facility] [address] [place] [address] [place] [address] MCHC (RBC) [Mass/Vol] 33.7 g/dL Normal 32.0-35.9 [facility] Comment on above: Performed By: #### Aida GABY #### [facility] [address] [place] [address] [place] [address] MCV (RBC) [Entitic vol] 92 fL Normal 80-100 [facility] Comment on above: Performed By: #### Aida GABY #### [facility] [address] [place] [address] [place] [address] MONOCYTE DISTRIBUTION WIDTH Normal [facility] Comment on above: Performed By: #### Aida GABY #### [facility] [address] [place] [address] [place] [address] Monocytes (Bld) [#/Vol] 0.50 10*3/uL Normal 0.20-1.00 [facility] Comment on above: Performed By: #### Aida GABY #### [facility] [address] [place] [address] [place] [address] Monocytes/100 WBC (Bld) 8.0 % Normal 2.0-11.0 [facility] Comment on above: Performed By: #### D GABY #### [facility] [address] [place] [address] [place] [address] Neutrophils (Bld) [#/Vol] 3.50 10*3/uL Normal 1.50-8.00 [facility] Comment on above: Performed By: #### D GABY #### [facility] [address] [place] [address] [place] [address] Neutrophils/100 WBC (Bld) 56.3 % Normal 31.0-76.0 [facility] Comment on above: Performed By: #### D GABY #### [facility] [address] [place] [address] [place] [address] Nucleated RBC (Bld) [#/Vol] 0.1 10*3/uL Normal [facility] Comment on above: Performed By: #### D GABY #### [facility] [address] [place] [address] [place] [address] Nucleated RBC (Bld) [#/Vol] 0.01 10*3/uL Normal [facility] Comment on above: Performed By: #### D GABY #### [facility] [address] [place] [address] [place] [address] Platelet mean volume (Bld) [Entitic vol] 9.1 fL Normal 7.5-11.2 [facility] Comment on above: Performed By: #### D GABY #### [facility] [address] [place] [address] [place] [address] Platelets (Bld) [#/Vol] 277 10*3/uL Normal 150-400 [facility] Comment on above: Performed By: #### D GABY #### [facility] [address] [place] [address] [place] [address] RBC (Bld) [#/Vol] 4.33 10*6/uL Normal 4.00-5.20 [facility] Comment on above: Performed By: #### D GABY #### [facility] [address] [place] [address] [place] [address] WBC (Bld) [#/Vol] 6.2 10*3/uL Normal 4.5-11.5 [facility] Comment on above: Performed By: #### D GABY #### [facility] [address] [place] [address] [place] [address] Basophils (Bld) [#/Vol] 0.00 10*3/uL 0.00 - 0.20 K/uL [facility] Basophils/100 WBC (Bld) 0.8 % NINF - 1.9 % [facility] Eosinophils (Bld) [#/Vol] 0.10 10*3/uL 0.00 - 0.70 K/uL [facility] Eosinophils/100 WBC (Bld) 1.2 % 0.1 - 4.0 % [facility] Erythrocyte distribution width (RBC) [Ratio] 13.9 % 11.5 - 14.5 % [facility] Hematocrit (Bld) [Volume fraction] 39.6 % 36.0 - 46.0 % [facility] Hemoglobin (Bld) [Mass/Vol] 13.4 g/dL 12.0 - 15.0 g/dL [facility] Lymphocytes (Bld) [#/Vol] 2.10 10*3/uL 1.00 - 4.80 K/uL [facility] Lymphocytes/100 WBC (Bld) 33.7 % 24.0 - 44.0 % [facility] MCH (RBC) [Entitic mass] 30.9 pg 26.0 - 34.0 pg [facility] MCHC (RBC) [Mass/Vol] 33.7 g/dL 32.0 - 35.9 g/dL [facility] MCV (RBC) [Entitic vol] 92 fL 80 - 100 fL [facility] Monocyte distribution width Auto (Bld) [Entitic vol] [facility] Monocytes (Bld) [#/Vol] 0.50 10*3/uL 0.20 - 1.00 K/uL [facility] Monocytes/100 WBC (Bld) 8.0 % 2.0 - 11.0 % [facility] Neutrophils (Bld) [#/Vol] 3.50 10*3/uL 1.50 - 8.00 K/uL [facility] Neutrophils/100 WBC (Bld) 56.3 % 31.0 - 76.0 % [facility] Nucleated RBC (Bld) [#/Vol] 0.01 10*3/uL [facility] Nucleated RBC/100 WBC (Bld) [Ratio] 0.1 % [facility] Platelet mean volume (Bld) [Entitic vol] 9.1 fL 7.5 - 11.2 fL [facility] Platelets (Bld) [#/Vol] 277 10*3/uL 150 - 400 K/uL [facility] RBC (Bld) [#/Vol] 4.33 10*6/uL [facility] WBC (Bld) [#/Vol] 6.2 10*3/uL 4.5 - 11.5 K/uL [facility] ED Noteson 10-09-2022 Cable Tv Installer Authentication Interface Message Text Current blood glucose 343. Normal [facility] Noteson 10-09-19 Cable Tv Installer Authentication Interface Message Text EMERGENCY DEPARTMENT - [...] vision changes. VSS. States some SOB intermittently. Statistics Professor: not needed - patient preferred language is Singaporean. 42-year-old female complains of 6/10 chest pain which she describes as both sharp and tightness that has been relatively constant the last couple hours. Her significant other's car broke down close to here. She recently moved here from [place]. No history heart disease but she has [...] History provided by: Patient and significant otherLanguage guest services assistant used: No Chest symptoms/complaints Pain location: Substernal [...] conduc (more content not included)... Normal [facility] [employer] Installer Authentication Interface Message Text Normal [facility] GLUCOSE, FINGERSTICK-IN OFFI CEon 10-09-2022 Glucose [Mass/Vol] 343 mg/dL High 68-110 [facility] Comment on above: Result Comment: Francisco cook RN, APN, MD Performed By: #### D GABY #### [facility] [address] [place] [address] [place] [address] Glucose [Mass/Vol] 343 mg/dL High 68 - 110 mg/dL [facility] Comment on above: Notified YASMINE AUGUSTIN MD Interpretation and review of laboratory results Abnormal [facility] HCG URINEon 10-09-2022 Beta HCG ( test) Ql (U) Negative Normal Negative [facility] Comment on above: Performed By: #### U R BETA #### [facility] [address] [place] [address] [place] [address] HCG URINEOrdered By: Iram obando on 10-09-2022 HCG ( test) Ql (U) Negative Negative [facility] Interpretation and review of laboratory results Normal [facility] HIGH SENSITIVITY TROPONIN Io n 10-09-2022 HS TROPONIN I < 4 Normal <=15 [facility] Comment on above: Order Comment: High Sensitivity Cardiac Troponin I (hsTnI) assay has replaced the conventional troponin assay at [facility]. All results are reported in whole numbers representing ng/L. Repeat test times for ruling out acute coronary syndrome (ACS) are every 2 hours instead of every 6-8 hours. Konef-hd-vnpr conventional troponin (I-stat) will remain available in the [facility] ??? results obtained by different labs [...] Performed By: #### H STRP #### [facility] [address] [place] [address] Troponin I.cardiac DL <= 0.01 ng/mL [Mass/Vol] ng/L NINF - 15 ng/L [facility] Troponin I.cardiac DL <= 0.0 1 ng/mL [Mass/Vol]on 10-09-2022 Interpretation and review of laboratory results Normal [facility] High Sensitivity Car dia Troponin I (hsTnI) assay has replaced the conventional troponin assay at [facility]. All results are reported in whole numbers representing ng/L. Repeat test times for ruling out acute coronary syndrome (ACS) are every 2 hours instead of every 6-8 hours. Ausgx-is-ovfn conventional troponin (I-stat) will remain available in the [facility] results obtained by different labs or [...] 1 points, >45 ng/L = 2 points). [facility] Chest PA and Lateralon EXAMINATION: XR CHES T 2 VIEW PA+LAT 10/09/2022 10:37 PM CLINICAL HISTORY: Chest pain ASSOCIATED DIAGNOSIS: Chest pain ORDERING PROVIDER: ANDREI WALLACE NOTE: COMPARISON: None FINDINGS: Cardiomediastinal silhouette: Normal. Lungs/Pleura: No focal pulmonary consolidation, effusion or pneumothorax. Musculoskeletal: Unremarkable. IMPRESSION: No acute process. MACRO: None RADIOLOGY Aries Juarez MD - 10/09/2022 EXAMINATION: XR CHEST 2 VIEW PA+LAT 10/09/2022 10:37 PM CLINICAL HISTORY: Chest pain ASSOCIATED DIAGNOSIS: Chest pain ORDERING PROVIDER: ANDREI WALLACE NOTE: COMPARISON: None FINDINGS: Cardiomediastinal silhouette: Normal. Lungs/Pleura: No focal pulmonary consolidation, effusion or pneumothorax. Musculoskeletal: Unremarkable. IMPRESSION: No acute process. MACRO: None [facility] Radiology Study observation (narrative) [facility] XR Chest PA and LateralOrder ed By: Aries Juarez on 10-09-2022 [facility] Work Phone: Vital Signs Date Time Vital Sign Value Performing Clinician Facility 09-28-2023 19:07-0500 Diastolic blood pressure 88 mm[Hg] Srinivas Easley [facility] 09-28-2023 19:07-0500 Heart rate 91 /min Srinivas Hendersone [facility] 09-28-2023 19:07-0500 Respiratory rate 20 /min Srinivas Hendersone [facility] 09-28-2023 19:07-0500 SaO2% (BldA) [Mass fraction] 99 % Srinivas Hendersone [facility] 09-28-2023 19:07-0500 Systolic blood pressure 138 mm[Hg] Srinivas Hendersone [facility] 09-28-2023 18:15-0500 Diastolic blood pressure 84 mm[Hg] Srinivas Hendersone [facility] 09-28-2023 18:15-0500 Heart rate 91 /min Srinivas Hendersone [facility] 09-28-2023 18:15-0500 Respiratory rate 30 /min Srinivas Hendersone [facility] 09-28-2023 18:15-0500 SaO2% (BldA) [Mass fraction] 98 % Srinivas Hendersone [facility] 09-28-2023 18:15-0500 Systolic blood pressure 136 mm[Hg] Srinivas Kaushal [facility] 09-28-2023 17:17-0500 Diastolic blood pressure 88 mm[Hg] Srinivas Kaushal [facility] 09-28-2023 17:17-0500 Heart rate 87 /min Srinivas Hendersone [facility] 09-28-2023 17:17-0500 Respiratory rate 17 /min Srinivas Easley [facility] 09-28-2023 17:17-0500 SaO2% (BldA) [Mass fraction] 97 % Srinivas Easley [facility] 09-28-2023 17:17-0500 Systolic blood pressure 135 mm[Hg] Srinivas Easley [facility] 09-28-2023 14:23-0500 Body temperature 97.7 [degF] Srinivas Easley [facility] 09-28-2023 14:23-0500 Heart rate 101 /min Srinivas Easley [facility] 09-28-2023 14:23-0500 Respiratory rate 18 /min Srinivas Easley [facility] 03-04-2023 10:39-0400 Body height 162.56 cm Kip W Soviak Work Phone: [facility] 3 DO Work Phone: 03-04-2023 10:39-0400 Body mass index (BMI) [Ratio] 37.83 kg/m2 Kip W Soviak Work Phone: [facility] 3 DO Work Phone: 03-04-2023 10:39-0400 Body surface area Derived from formula 2.04 m2 Kip W Soviak Work Phone: [facility] 3 DO Work Phone: 03-04-2023 10:39-0400 Body weight 99.97 kg Kip W Soviak Work Phone: [facility] 3 DO Work Phone: 06-28-2023 10:39-0400 Diastolic blood pressure 66 mm[Hg] Kip W Soviak Work Phone: [facility] 3 DO Work Phone: 03-04-2023 10:39-0400 Heart rate 83 /min Kip W Soviak Work Phone: [facility] 3 DO Work Phone: 03-04-2023 10:39-0400 SaO2% (BldA) [Mass fraction] 94 % Kip W Soviak Work Phone: [facility] 3 DO Work Phone: 03-04-2023 10:39-0400 Systolic blood pressure 112 mm[Hg] Kip W Soviak Work Phone: [facility] 3 DO Work Phone: 02-10-2023 17:00-0400 Diastolic blood pressure 72 mm[Hg] [facility] 02-10-2023 17:00-0400 Heart rate 82 /min [facility] 02-10-2023 17:00-0400 Respiratory rate 17 /min [facility] 02-10-2023 17:00-0400 SaO2% (BldA) [Mass fraction] 97 % [facility] 02-10-2023 17:00-0400 Systolic blood pressure 118 mm[Hg] [facility] 02-10-2023 13:32-0400 Body height 162.5 cm [facility] 02-10-2023 13:32-0400 Body temperature 97.52 [degF] [facility] 02-10-2023 13:32-0400 Body weight 101 kg [facility] 01-19-2023 20:00-0400 Diastolic blood pressure 79 mm[Hg] [facility] 01-19-2023 20:00-0400 Heart rate 86 /min [facility] 01-19-2023 20:00-0400 Respiratory rate 16 /min [facility] 01-19-2023 20:00-0400 SaO2% (BldA) [Mass fraction] 96 % [facility] [facility] 20:00-0400 Systolic blood pressure 123 mm[Hg] [facility] 01-19-2023 17:19-0400 Body temperature 97.52 [degF] [facility] 01-19-2023 17:19-0400 Body weight 97 kg [facility] 11-30-2022 15:53-0400 Body temperature 37.0 {degrees_C} Christina Mcnally MD, MPH Work Phone: AQ-Vllaccj-Toameeq Work Phone: Comment on above: NOTE: PATIENT RESULTS ARE NOT CORRECTED FOR TEMPERATURE. 11-30-2022 15:53-0400 SaO2% (BldA) [Mass fraction] 99 % Christina Mcnally MD, MPH Work Phone: BM-Jtiahqu-Gprpgnx Work Phone: 11-16-2022 09:40-0400 Body temperature 97.88 [degF] [facility] 11-16-2022 09:40-0400 Diastolic blood pressure 76 mm[Hg] [facility] 11-16-2022 09:40-0400 Heart rate 94 /min [facility] 11-16-2022 09:40-0400 Respiratory rate 18 /min [facility] 11-16-2022 09:40-0400 SaO2% (BldA) [Mass fraction] 94 % [facility] 11-16-2022 09:40-0400 Systolic blood pressure 126 mm[Hg] PAVEL GOODP [facility] 11-07-2022 11:05-0500 Hourly Rounding Srinivas Kaushal [facility] 11-07-2022 11:05-0500 Promise to Return Srinivas Kaushal [facility] 11-07-2022 11:00-0500 Diastolic blood pressure 61 mm[Hg] Srinivas Kaushal [facility] 11-07-2022 11:00-0500 Mean blood pressure 84 mm[Hg] Srinivas Akushal [facility] 11-07-2022 11:00-0500 SaO2% (BldA) [Mass fraction] 95 % Srinivas Kaushal [facility] 11-07-2022 11:00-0500 Systolic blood pressure 129 mm[Hg] Srinivas Kaushal [facility] 11-07-2022 10:08-0500 Hourly Rounding Srinivas Kaushal [facility] 11-07-2022 10:08-0500 Promise to Return Srinivas Kaushal [facility] 11-07-2022 10:00-0500 Diastolic blood pressure 75 mm[Hg] Srinivas Kaushal [facility] 11-07-2022 10:00-0500 Heart rate 104 /min Srinivas Kaushal [facility] 11-07-2022 10:00-0500 Mean blood pressure 99 mm[Hg] Srinivas Kaushal [facility] 11-07-2022 10:00-0500 Systolic blood pressure 148 mm[Hg] Srinivas Kaushal [facility] 11-07-2022 09:20-0500 Body temperature 98.96 [degF] Srinivas Easley [facility] 11-07-2022 09:20-0500 Diastolic blood pressure 78 mm[Hg] Srinivas Easley [facility] 11-07-2022 09:20-0500 Heart rate 107 /min Srinivas Easley [facility] 11-07-2022 09:20-0500 Respiratory rate 18 /min Srinivas Easley [facility] 11-07-2022 09:20-0500 SaO2% (BldA) [Mass fraction] 98 % Srinivas Easley [facility] 11-07-2022 09:20-0500 Systolic blood pressure 136 mm[Hg] Srinivas Easley [facility] 10-10-2022 00:21-0500 Heart rate 86 /min Andrei Rader MD Work Phone: [employer] 10-10-2022 00:21-0500 Respiratory rate 12 /min Andrei Rader MD Work Phone: [employer] 10-10-2022 00:21-0500 SaO2% (BldA) [Mass fraction] 98 % Andrei Rader MD Work Phone: [employer] 10-09-2022 20:15-0500 Body temperature 97.81 [degF] Andrei Rader MD Work Phone: [employer] 10-09-2022 20:15-0500 Body weight 113.4 kg Andrei Rader MD Work Phone: [employer] 10-09-2022 20:15-0500 Diastolic blood pressure 93 mm[Hg] Andrei Rader MD Work Phone: [employer] 10-09-2022 20:15-0500 Systolic blood pressure 150 mm[Hg] Andrei Rader MD Work Phone: [facility] Encounters Encounter Date Encounter Type Care Provider Facility Start: 02-29-2024 End: 02-29-2024 ambulatory OLINDA CASTILLO [place] Start: 02-29-2024 End: 02-29-2024 Patient encounter procedure OLINDA Tinsley ANNA [facility] Start: 01-06-2024 End: 01-06-2024 ambulatory ARIES JONES Not Available Start: 10-12-2023 End: 10-31-2023 Pre-admission assessment OLINDA CASTILLO [facility] Start: 10-07-2023 End: 10-07-2023 ambulatory OLINDA ANNA Facility[place] Start: 10-07-2023 End: 10-07-2023 Patient encounter procedure OLINDA CASTILLO [facility] Start: 09-28-2023 End: 09-28-2023 Emergency department patient visit Srinivas Easley [facility] Start: 04-16-2023 ambulatory MD VERO Pandey ity:[facility] Start: 04-08-2023 ambulatory Mr. Bhanu Mar Facility:[id number] Start: 03-04-2023 ambulatory Ms. Olinda Castillo Facility:[id number] Start: 03-04-2023 Chart Update Bhanu Luisito Josecinthya Work Phone: [facility] 3 DO Work Phone: Start: 03-02-2023 End: 05-31-2023 ambulatory Hailey Holman Facility:[facility] Start: 03-02-2023 End: 05-31-2023 Recurring Lissette [facility] Start: 02-27-2023 AUDIT Olinda doll Work Phone: [facility]yxdx[facility] Solomon 3 DO Work Phone: Start: 02-10-2023 End: 02-10-2023 Emergency department patient visit Kee Swan [facility] Emergency 13 Start: 01-30-2023 End: 01-30-2023 Patient encounter procedure Tera Caputo [facility] Start: 01-26-2023 ambulatory Zhao Alfred Goodp F acility:[id number] Start: 01-19-2023 End: 01-19-2023 Emergency department patient visit Srinivas Fragoso [facility] Emergency 04 Start: 01-16-2023 End: 01-16-2023 Patient encounter procedure BHANU BULLARDDIONE [facility] Start: 01-13-2023 End: 01-13-2023 Lab Drop off BHANU BULLARDDIONE [facility] Start: 01-13-2023 End: 01-13-2023 Patient encounter procedure BHANU MAR [facility] Start: 12-10-2022 Chart Update Christina jernigan MD, MPH Work Phone: TL-Liwvexx-Omtfpos Work Phone: Start: 12-08-2022 ambulatory Zhao Alfred Kip F acility:[id number] Start: 11-30-2022 End: 12-06-2022 Evaluation and management of inpatient . Pavel Goodp Facility:[id number] Start: 11-28-2022 AUDIT Christina jernigan MD, MPH Work Phone: JB-Bcgnlsg-Kuflazc Work Phone: Start: 11-21-2022 Chart Update Christina jernigan MD, MPH Work Phone: OM-Rctxwxv-Nrgyeni Work Phone: Start: 11-11-2022 End: 11-16-2022 Evaluation and management of inpatient Dr. Steve Wall Facility:[id number] Start: 11-10-2022 End: 11-16-2022 Evaluation and management of inpatient Christal Rabago [facility] 3 Med [facility]urg [facility] 315 01 Start: 11-07-2022 End: 11-07-2022 Emergency department patient visit Srinivas Easley [facility] Start: 10-14-2022 End: 10-15-2022 Emergency department patient visit DO JESUS ALBERTO BEATA WALE Facility:[id number] Start: 10-10-2022 Emergency department patient visit UNKNOWN PROVIDER Facility:[facility] Start: 10-09-2022 End: 10-10-2022 Emergency department patient visit ANDREI RADER Facility:[facility] Start: 10-09-2022 End: 10-10-2022 Emergency department patient visit Andrei Rader MD Work Phone: [facility] Comment on above: Chart (Pt [...] changes. VSS. States some SOB intermittently. ) Procedures Date Procedure Procedure Detail Performing Clinician Start: 02-10-2023 End: 02-10-2023 EKG impression Kee Swan Start: 01-26-2023 Follow-up visit Start: 01-19-2023 End: 01-19-2023 Arterial Full Panel -Next Draw Srinivas Fouzia Start: 11-24-2022 Follow-up visit Start: 10-10-2022 Glucose [...] Hysterectomy Christina hodge MD, MPH Work Phone: Plan of Treatment Date Care Activity Detail Author Start: 2028 Shingles (RZV) Vacci ne (1 of 2) Shingles (RZV) Vaccine (1 of 2) [facility] Start: 04-16-2023 NPV, Provider: Vero Matos, Status: Pen, Time: 10:40 AM NPV, Provider: Vero Matos, Status: Pen, Time: 10:40 AM [facility] Work Phone: Start: 04-16-2023 Patient encounter procedure Endo Bolwell Start: 03-19-2023 FUV, Provider: Sivakumar Galeano, Status: Pen, Time: 10:00 AM FUV, Provider: Sivakumar Galeano, Status: Pen, Time: 10:00 AM [facility] Solomon 3 DO Work Phone: Start: 03-04-2023 NPV, Provider: Shy Galeano, Status: Pen, Time: 11:00 AM NPV, Provider: Shy Galeano, Status: Pen, Time: 11:00 AM [facility] Solomon 3 DO Work Phone: Start: 01-22-2023 Patient encounter procedure [facility] Start: 12-03-2022 Past history of procedure Status post cystoscopy Date: 03-Dec-2022 Comments: R RPg stent removal [facility] Comment on above: R RPg stent removal Start: 11-24-2022 FUV, Provider: Christina Ramos, Status: Pen, Time: 2:45 PM FUV, Provider: Christina Ramos, Status: Pen, Time: 2:45 PM GD-Bfjlfiy-Kimmbrf Work Phone: Start: 11-24-2022 Patient encounter procedure [facility] Start: 11-14-2022 End: 11-15-2023 [facility] Comment on above: Karol-operative or wellington ONLYMax total of 4 mg regardless of dose. Karol-operative or wellington ONLY DO NOT ADMINISTER UN TIL PHYSiCIAN HAS BEEN NOTIFIED AND ASSESSED PATIENT Start: 11-11-2022 End: 11-12-2023 [facility] Comment on above: May repeat until [...] 06-07-2022 Influenza vaccination Influenza Vacc ine (#1) [facility] Start: 2018 Screening for malign ant neoplasm of breast Mammography [facility] Start: 1999 Screening for malign ant neoplasm of cervix Pap Smear [facility] Start: 1996 Hepatitis C screening Hepatitis C An tibody [facility] Start: 1996 Tetanus + diphtheria + acellular pertussis vaccine (product) Tdap Booster [facility] Start: 1993 HIV screening HIV Test [facility] Start: 1978 COVID-19 Vaccine (#1) COVID-19 Vacci ne (#1) [facility] End: 10-09-2022 Basic metabolic 2000 panel - Serum or Plasma BASIC METABOLIC PANEL Lab STAT One time for 1 Occurrences starting 10/09/2022 until 10/09/2022 [employer] Work Phone: Comment on above: One time for 1 Occur rences starting 10/09/2022 until 10/09/2022 End: 10-09-2022 Fibrin dgradj products d-dimer qual/semiquan D-DIMER Lab STAT One time for 1 Occurrences starting 10/09/2022 until 10/09/2022 [employer] Comment on above: One time for 1 Occur rences starting 10/09/2022 until 10/09/2022 History of insertion of stent into ureter S/P cystoscopy with ureteral stent placement [facility] Payers Date Payer Category Payer Unknown [id number] 2022 Unknown [id number] 2022 Medicaid [id number] 1978 Unknown [id number] 2.16. [id number] 1978 Unknown [id number] 2.16. [id number]. 1978 Unknown [id number] 2.16.8 40.1.652759.3.579.2.1068 1978 Unknown [id number] 2.16.8 40.1.690906.3.579.2.1068 1978 Unknown [id number] 2.16.8 40.1.238113.3.579.2.1068 1978 Unknown [id number] 2.16.8 40.1.926766.3.579.2.1068 1978 Unknown [id number] 2.16.8 40.1.764471.3.579.2.1068 1978 Unknown [id number] 2.16. 840.1.361190.3.579.2.356 1978 Unknown [id number] 2.16. 840.1.313920.3.579.2.356 1978 Unknown [id number] 2.16. 840.1.971426.3.579.2.356 1978 Unknown [id number] 2.16. 840.1.496141.3.579.2.356 1978 Unknown [id number] 2.16. 840.1.160845.3.579.2.356 1978 Unknown [id number] 2.16.8 40.1.614096.3.579.2.727 1978 Unknown [id number] 2.16.8 40.1.865542.3.579.2.727 1978 Unknown [id number] 2.16.8 40.1.544897.3.579.2.727 1978 Unknown [id number] 2.16.8 40.1.783095.3.579.2.727 Medicaid [id number] Social History Date Type Detail Facility Tobacco smoking stat [facility] Tobacco smoking consumption unknown [facility] Start: 1980 Sex Assigned At Not on file [facility] Start: 09-29-2022 End: 10-09-2022 Exposure to SARS-CoV-2 (event) Not sure [facility] Tobacco smoking status No Smokin g Status Entered [facility] Sex Assigned At Female [facility] Denies alcohol consumption Denies alcohol consumption GL-Xdskiqq-Ucrlxqj Work Phone: Start: 09-28-2023 Tobacco smoking status Never smoked tobacco (finding) [facility] Tobacco smoking status Never [facility] Medical Equipment Procedure Code Equipment Code Equipment Origin al Text Equipment Identifier Dates glucometer ; 1 u nit(s) subcutaneous 4 times a day DX - insulin dependent DMM IIAccuchek strips and lancets as well Quantity: 1 Refills: 0 Ordered: 17-Oct-2022 Steve Wall Start: 17-Oct-2022 Generic Substitution Allowed [id number] Start: 10-17-2022 Blood Glucose In Vitro Test Strips (100 each) ; 1 strip(s) intradermal 4 times a day Quantity: 150 Refills: 0 Ordered: 06-Dec-2022 Riri Najera Start: 06-Dec-2022 End: 04-Jan-2023 Generic Substitution Allowed [id number] Start: 12-06-2022 End: 01-04-2023 Functional Status Date Assessment Result Facility 09-28-2023 Functional Status N/A [facility] 11-07-2022 Functional Status N/A [facility] Functional observable [facility] Mental Status Date Assessment Result Facility 11-16-2022 Cognitive functi ons [id number] [facility] Clinical Notes 10-09-2022 to 09-28-2023 Maricruz Wing RN - 10/10/2022 1:37 AM Maricruz Arvizu RN - 10/10/2022 1:37 AM Temitope Heredia RN - 10/10/2022 1:23 AM Maricruz Arvizu RN - 10/10/2022 12:34 AM SALUDDischanikkie Instructions Note Date & Type Note Facility 09-28-2023 Hospital Discharge instructions Patient Education 09/28/2023 19:09:51 Hyperglycemia, Ygri-yx-Ijyq Hyperglycemia Hyperglycemia is when the sugar (glucose) [...] these instructions at home: General instructions Take oeam-lhr-ztbhdoe and prescription medicines only as told by [...] have diabetes. Where to find more information [place] [employer]: www.diabetes.org Contact a doctor if: [...] provider. Document Revised: 06/07/2021 Document Reviewed: 06/07/2021 [employer] Patient Education 2022 Archsy. 09/28/2023 19:09:51 Blood Glucose Monitoring, Adult Blood [...] have. Where to find more information The [place] [employer]: www.diabetes.org The Association of Diabetes [...] provider. Document Revised: 05/22/2021 Document Reviewed: 05/22/2021 [employer] Patient Education 2022 Archsy. 09/28/2023 19:09:51 Nausea and Vomiting, Adult, Qvmv-wn-Bqgj Nausea and Vomiting, Adult Nausea is feeling [...] fruit juice). ?Low-calorie sports drinks. Eat bland, jznu-bo-yxjmms foods in small amounts as you are able, such as: ?Bananas. ?Applesauce. ?Rice. ?Low-fat (lean) meats. ?Glenolden. ?Crackers. Avoid drinking fluids that have a lot of sugar or caffeine in them. This includes energy drinks, sports drinks, and soda. Avoid alcohol. Avoid spicy or fatty foods. General instructions Take flkp-yot-errjrul and prescription medicines only as told by your doctor. Drink enough fluid to keep your pee (urine) pale yellow. Wash your hands often with soap and water for at least 20 seconds. If you cannot use soap and water, use hand oil scout. Make sure that everyone in your home [...] your doctor about eating and drinking. Take ywnr-dib-luatcxo and prescription medicines only as told by your doctor. Contact your doctor if your symptoms get worse or you have new symptoms. Keep all follow-up visits. This information is not intended to replace advice given to you by your health care provider. Make sure you discuss any questions you have with your health care provider. Document Revised: 02/28/2022 Document Reviewed: 02/28/2022 [employer] Patient Education 2022 Archsy. Follow Up Care 09/28/2023 14:17:47 With:BHANU MAR Address: [address] [place] [address], [place] [address]- Business (1) When:10/01/2023 19:00:21 Comments:Follow-up with your primary care provider in 3 to 5 days. If symptoms worsen, do not improve, or new symptoms arise please report back to emergency department for further evaluation. [facility] 01-01-2023 Hospital Discharge instructions Follow Up Care 01/01/2023 15:05:23 With:Patito LEE, Tera Mac, PUL, LADI Address: [address] [place] [address] [facility] (Heart [facility] V[facility] [place] [id number] When: Unknown Comments:after his testing is completed [facility] 12-06-2022 Note [facility] 12-03-2022 Note [facility] 12-03-2022 Note [facility] 11-30-2022 Note [facility] 11-16-2022 Note [facility] 11-14-2022 Note [facility] 11-14-2022 Note [facility] 11-11-2022 Note [facility] 11-07-2022 Hospital Discharge instructions Patient Education 11/07/2022 [...] or polycystic ovarian syndrome (PCOS). Being of [place]-, -[place], /, or / descent. What are the [...] these instructions at home: General instructions Take qkyq-fqi-byyadxm and prescription medicines only as told by [...] 02/17/2002 Document Revised: 05/11/2017 Document Reviewed: 05/11/2017 [employer] Patient Education 2020 Meaningfy 11/07/2022 12:04:02 Urinary Tract Infection, Adult Urinary [...] Treatment for this condition includes: Antibiotic medicine. Crny-obd-kfseqgq medicines to treat discomfort. Drinking enough water [...] Follow these instructions at home: Medicines Take gxyx-snd-suvlbfo and prescription medicines only as told by [...] 06/03/2006 Document Revised: 08/11/2019 Document Reviewed: 03/03/2019 [employer] Patient Education 2020 Archsy. Follow Up Care 11/07/2022 09:18:59 With:BHANU MAR [address] [place] [address] Business (1) When:11/10/2022 11:41:59 [facility] 11-07-2022 Evaluation + Plan note Diagnostic Tests PendingUrine Culture 11/07/22 [facility] 10-17-2022 Note [facility] 10-15-2022 Note [facility] 10-10-2022 Emergency department Note Pt aware kesha has been set up for her and she will have to pay bill. Pt verbalized understanding. [facility] 10-10-2022 Emergency department Note Pt aware kesha has been set up for her and she will have to pay bill. Pt verbalized understanding. Current blood glucose 279. Pt eating without difficulty, elaine has slightly improved. Medicated per NOV. Awaiting to speak with provider for update. Cosigned insulin with Temitope UNDERWOOD Pt c/o nausea and elaine. Dr. Rader made aware. Per lab, d-dimer hemolyzed for third time. Communicated with dr. Rader Current blood glucose 343. EMERGENCY DEPARTMENT - [...] vision changes. VSS. States some SOB intermittently. Statistics Professor: not needed - patient preferred language is Singaporean. 42-year-old female complains of 6/10 chest pain which she describes as both sharp and tightness that has been relatively constant the last couple hours. Her significant other's car broke down close to here. She recently moved here from [place]. No history heart disease but she has [...] History provided by: Patient and significant otherLanguage guest services assistant used: No Chest symptoms/complaints Pain location: Substernal [...] Andrei Rader MD documented in this encounter [facility] 10-10-2022 Hospital Discharge instructions Andrei Rader [...] Care Everywhere.High Blood Sugar Discharge Instructions, Adult (Singaporean)Costochondritis Discharge Instructions (Singaporean)Chest Pain That Is Not Caused by the Heart Discharge Instructions (Singaporean)documented in this encounter [facility] 10-10-2022 Emergency department Note Current blood glucose 279. [facility] 10-10-2022 Emergency department Note Pt eating without difficulty, elaine has slightly improved. Medicated per MAR. Awaiting to speak with provider for update. [facility] 10-10-2022 Emergency department Note Cosigned insulin with Temitope UNDERWOOD [facility] 10-09-2022 Emergency department Note Pt c/o nausea and elaine. Dr. Rader made aware. [facility] 10-09-2022 Emergency department Note Per lab, d-dimer hemolyzed for third time. Communicated with dr. Rader [facility] 10-09-2022 Emergency department Note Current blood glucose 343. [facility] 10-09-2022 Physician Emergency department Note EMERGENCY [...] vision changes. VSS. States some SOB intermittently. Statistics Professor: not needed - patient preferred language is Singaporean. 42-year-old female complains of 6/10 chest pain which she describes as both sharp and tightness that has been relatively constant the last couple hours. Her significant other's car broke down close to here. She recently moved here from [place]. No history heart disease but she has [...] History provided by: Patient and significant otherLanguage guest services assistant used: No Chest symptoms/complaints Pain location: Substernal [...] Course: ED Course as of 10/10/22 0127 [facility] Oct 09, 2022 3211 Nursing medic having difficult time in blood [...] on the discharge paperwork. Andrei Rader MD [facility] [employer] Work Phone: Evaluation + Plan note Future Appointments Appointment Date:01/30/2023 09:30:00 AM Scheduled Provider: Location:FT.Sleep Clinic Appointment Type:INSTRUCTOR OF SPANISH Sleep Study Clinic Follow Up (FT) [facility] Evaluation note Diagnosis Chest wall discomfort- Primary Painful respiration Hyperglycemia Other abnormal glucose [facility] Extremities: No peripheral edemaNeurological: Awake, alert, orientedENMT: Moist mucous membranesHead/Neck: Normocephalic, atraumaticRespiratory/Thorax: Bilateral equal breath soundsMusculoskeletal: Mo ving all extremities with equal strengthGastrointestinal: Soft, nontender, nondistended,Constitutional: Awake, alert, oriented, no acute distressSkin: Warm and dryEyes: Extraocular muscles intactCardiovascular: Regular rate and rhythmPsychological: Cooperative [facility] Narrative No data available for this section [facility] Discharge instructions* Activity:activity as tolerated. May shower. [...] acute kidney injury.4. Recommend repeat BMP on 11/19 to confirm that renal function continues [...] monitor the constipation at home. May take asea-jvw-qiziduv Colace or MiraLAX to assist with constipation.9. Thank you for allowing us to participate in your care at [facility]. * Follow Up Appointment 1:Physician/Dept/Service: Dr. Gonzalez for Referral: Hospital Follow-upCall to Schedule in: 2 weeksScheduled Date/Time: 24-Nov-2022 14:45Location: [address] [address]Phone Number: [phone] * Follow Up Appointment 2:Physician/Dept/Service: Dr. Garcia for Referral: Hospital Follow-upLocation: [address] [place] [address]Phone Number: [phone]: Please call and schedule an appointment within 1 week of your hospital Discharge * Follow Up Appointment 3:Physician/Dept/Service: Amy for Referral: f/u hospitalComments: Please follow-up with a Primary care Physician [facility] No data available for this section [facility] No data available for this section [facility] Summary Purpose Family History No Family History [...] 0041 0029 (Given - Provid er: Maricruz Wing, YASMINE) ketorolac (TORADOL) 30 MG/ML injection (COMPLETED) 15 mg, Intravenous Push, ONCE, 1 dose, On Thu10/10/22 at 0041 0016 (Given - Provid er: Maricruz Wing, RN) sodium chloride 0.9 % iv bolus (COMPLETED) 500 mL, at 9,999 mL/hr, Intravenous, FLUID BOLUS, 1 dose, On Thu10/10/22 at 0011 2348 (IV New Bag - Provider: Maricruz Wing, RN - Comment: barcode not reading) 0034 (IV Stop - Provider: Maricruz Wing, RN) Patient Care team informatio n (unrecognized section and content) Personnel Name: BHANU MAR CNP Address: Address: [address] [place] [address]- Personnel Name: BHANU MAR CNP Address: Address: [address] [place] [address]- Personnel Name: BHANU MAR CNP Address: Address: [address] [place] [address]- Personnel Name: BHANU MAR CNP Address: Address: [address], [place] [address]- Personnel Name: BHANU MAR CNP Address: Address: [address], [place] [address]- Personnel Name: BHANU MAR CNP Address: Address: [address] [place], [place] [address]- Personnel Name: BHANU MAR CNP Address: Address: Loida S[address] [place], [place] [address]- Personnel Name: OLINDA CASTILLO CNP Address: Address: [place] [facility] [place], [address] Personnel Name: OLINDA CASTILLO CNP Address: Address: [place] [facility] [place], [address] Personnel Name: OLINDA CASTILLO CNP Address: Address: [place] [facility] [place], [address] <item><item><item> Privacy Markings (unrecogniz ed section and content) Section Author: Kesha Aj PROHIBITION ON REDISCLOSURE OF CONFIDENTIAL INFORMATION This notice accompanies a disclosure of information concerning a client made to you with the consent of such client. Section Author: eKsha Aj PROHIBITION ON REDISCLOSURE OF CONFIDENTIAL INFORMATION This notice accompanies a disclosure of information concerning a client made to you with the consent of such client. Section Author: AjKesha PROHIBITION ON REDISCLOSURE OF CONFIDENTIAL INFORMATION This notice accompanies a disclosure of information concerning a client made to you with the consent of such client. INFORMATION SOURCE (unrecogn ized section and content) DATE CREATED AUTHOR 12/01/2022 [facility] DATE CREATED AUTHOR AUTHOR'S ORGANIZ ATION 02/17/2023 [facility] DATE CREATED AUTHOR AUTHOR'S ORGANIZ ATION 03/05/2023 [employer] DATE CREATED AUTHOR AUTHOR'S ORGANIZ ATION 04/17/2023 [facility] DATE CREATED AUTHOR AUTHOR'S ORGANIZ ATION 12/31/2023 [facility] DATE CREATED AUTHOR AUTHOR'S ORGANIZ ATION 01/08/2024 [facility] DATE CREATED AUTHOR AUTHOR'S ORGANIZ ATION 02/29/2024 [facility] DATE CREATED AUTHOR AUTHOR'S ORGANIZ ATION 03/01/2024 [facility] FOR RECORDS PERTAINING TO PATIENTS WHO ARE [...] BE BASED ON THE PRIMARY CLINICAL RECORDS. [facility]. provides no warranty or guarantee of the accuracy or completeness of information in this document.
[2024-03-03 18:46] VITALS: BP 132/82; PULSE 92; TEMP 36.5; O2SAT 95; BMI 33.8
[2024-03-03 18:57] LABS: Glucometer 404 mg/dL (74-106)
--- NOTE | 2024-03-03 19:20 | CT_ITS ---
The [address] [address] Patient Name: JADA GRANADOS MRN: [id number] date: 1980 Sex: F Assigned Patient Location: ER Current Patient Location: ER Accession/Order Number: [id number] Exam Date: 03/03/2024 19:52 Report Date: 03/03/2024 20:19 At the request of: OSCAR KUHN Procedure: CT head/brain wo con EXAM: CT head/brain wo con, CT facial bones wo con CLINICAL INDICATION: facial injury TECHNIQUE: Unenhanced computerized tomography of the head and facial bones was performed. Automated dose reduction technique was employed. COMPARISON: None. FINDINGS: The ventricles are normal in size, configuration, and position for age. There is no intra- or extra-axial mass, hemorrhage, or fluid collection. No areas of abnormal mass effect or attenuation are noted. Visualized paranasal sinuses are free of mucosal disease. No depressed calvarial fracture. No displaced facial bone fractures. CT/CT head/brain wo con IMPRESSION: No acute intracranial abnormality noted. No displaced facial bone fractures. Electronically authenticated by: LISA WHYTE Date: 03/03/2024 20:19
--- NOTE | 2024-03-03 19:20 | CT_ITS ---
The [address] [address] Patient Name: JADA GRANADOS MRN: [id number] date: 1980 Sex: F Assigned Patient Location: ER Current Patient Location: ER Accession/Order Number: [id number] Exam Date: 03/03/2024 19:52 Report Date: 03/03/2024 20:19 At the request of: OSCAR KUHN Procedure: CT facial bones wo con EXAM: CT head/brain wo con, CT facial bones wo con CLINICAL INDICATION: facial injury TECHNIQUE: Unenhanced computerized tomography of the head and facial bones was performed. Automated dose reduction technique was employed. COMPARISON: None. FINDINGS: The ventricles are normal in size, configuration, and position for age. There is no intra- or extra-axial mass, hemorrhage, or fluid collection. No areas of abnormal mass effect or attenuation are noted. Visualized paranasal sinuses are free of mucosal disease. No depressed calvarial fracture. No displaced facial bone fractures. CT/CT facial bones wo con IMPRESSION: No acute intracranial abnormality noted. No displaced facial bone fractures. Electronically authenticated by: LISA WHYTE Date: 03/03/2024 20:19
--- NOTE | 2024-03-03 19:21 | ED_ITS ---
HPI HPI - General Adult General Chief complaint: Syncope Stated complaint: BWC, FACIAL INJURY/EYE INJURY Time Seen by Provider: 03/03/24 19:13 Source: patient Mode of arrival: walk-in Limitations: no limitations History of Present Illness HPI narrative: 43 female presents to the emergency department for a chief complaint of facial injury. She was at work and the air temperature was quite high and she got dizzy and she passed out she hit the left side of her face. She does not complain of neck pain and did not sustain any other injury. No vomiting. This happened just before coming into the emergency department. Related Data Home Medications ?Medication ?Instructions ?Recorded ?Confirmed dulaglutide 0.75 mg/0.5 mL 0.75 mg subcut QWEEK 01/15/24 02/05/24 subcutaneous pen injector (Trulicity) finerenone 20 mg tablet (Kerendia) 20 mg PO DAILY 01/15/24 02/05/24 insulin aspart U-100 100 unit/mL 1 sliding scale dose subcut 01/15/24 02/05/24 subcutaneous solution (Novolog USEASDIRECTD U-100 Insulin aspart) albuterol sulfate 90 mcg/actuation 2 puff inhalation Q6H PRN 02/05/24 02/05/24 aerosol inhaler shortness of breath or wheezing atorvastatin 20 mg tablet 20 mg PO .QHS 02/05/24 02/05/24 clopidogrel 75 mg tablet 75 mg PO QDAY 02/05/24 02/05/24 dapagliflozin propanediol 10 mg 10 mg PO .QD 02/05/24 02/05/24 tablet (Farxiga) fluticasone 250 mcg-salmeterol 50 1 inh inhalation .QD 02/05/24 02/05/24 mcg/dose blistr powdr for inhalation (Advair Diskus) hydroxyzine HCl 50 mg tablet 50 mg PO Q8H PRN itching 02/05/24 02/05/24 insulin glargine 100 unit/mL (3 30 unit subcut BID 02/05/24 02/05/24 mL) subcutaneous pen (Lantus Solostar U-100 Insulin) losartan 50 mg-hydrochlorothiazide 1 tab PO DAILY 02/05/24 02/05/24 12.5 mg tablet ondansetron 4 mg disintegrating 4 mg PO Q8H PRN nausea and vomiting 02/05/24 02/05/24 tablet pantoprazole 40 mg tablet,delayed 40 mg PO QDAY 02/05/24 02/05/24 release prazosin 1 mg capsule 1 mg PO QDAY 02/05/24 02/05/24 pregabalin 100 mg capsule 100 mg PO Q8H 02/05/24 02/05/24 Allergies Allergy/AdvReac Type Severity Reaction Status Date / Time codeine AdvReac Intermediate Rash Verified 01/15/24 20:29 Opioid HPI Opioid Management Most Recent Opioid Data: No Data to Display Review of Systems ROS0 Narrative A ten point review of systems is negative except as noted above. Exam Narrative Exam Narrative: Nurses note and vital signs reviewed and patient is not hypoxic. General: The patient appears well and in no apparent distress. Patient is resting comfortably on cart. Skin: Warm, dry, no pallor noted. There is no rash noted. Head: Normocephalic, small bruise present on the left side of her face below the eye. There is no laceration or hematoma. Eye: Normal conjunctiva, no drainage, EOMI. PERRL. Cervical spine nontender Ears, Nose, Mouth, and Throat: oral mucosa is moist. Nares patent. Cardiovascular: Regular Rate and Rhythm Respiratory: Patient is in no distress, no accessory muscle use, lungs are clear to auscultation, no wheezing, rales or rhonchi Back: non-tender, including C-spine GI: Soft and nontender Musculoskeletal: The patient has no evidence of calf tenderness, no pitting edema, symmetrical pulses noted bilaterally Neurological: Awake and alert Psychiatric: Cooperative Constitutional Vital Signs, click to edit/add: Last Vital Signs Temp 97.7 F 03/03/24 18:46 Pulse 92 H 03/03/24 18:46 Resp 20 03/03/24 18:46 BP 132/82 03/03/24 18:46 Pulse Ox 95 03/03/24 18:46 O2 Del Method Room Air 03/03/24 18:46 Course Vital Signs Vital signs: Vital Signs Temperature 97.7 F 03/03/24 18:46 Pulse Rate 92 H 03/03/24 18:46 Respiratory Rate 20 03/03/24 18:46 Blood Pressure 132/82 03/03/24 18:46 Pulse Oximetry 95 03/03/24 18:46 Oxygen Delivery Method Room Air 03/03/24 18:46 Temperature 97.7 F 03/03/24 18:46 Pulse Rate 92 H 03/03/24 18:46 Respiratory Rate 20 03/03/24 18:46 Blood Pressure 132/82 03/03/24 18:46 Pulse Oximetry 95 03/03/24 18:46 Oxygen Delivery Method Room Air 03/03/24 18:46 Medical Decision Making MDM Narrative Medical decision making narrative: CT scans of facial bones and brain are negative. Findings are discussed with the patient and she is discharged home. Treatment diagnosis and follow-up were discussed with the patient. Differential Diagnosis Differential Diagnosis: Facial contusion, facial fracture, intracranial hemorrhage Lab Data Lab results reviewed: Yes I reviewed the patient's lab results Labs: Lab Results 03/03/24 Range/Units 18:55 POC Glucose 404 H (74-106) mg/dL Imaging Data CT scan - head: Radiologist's impression: ITS Impressions Facial Bones CT 03/03/24 19:20 IMPRESSION: No acute intracranial abnormality noted. No displaced facial bone fractures. Electronically authenticated by: LISA WHYTE Date: 03/03/2024 20:[address] 03/03/24 19:20 IMPRESSION: No acute intracranial abnormality noted. No displaced facial bone fractures. Electronically authenticated by: LISA WHYTE Date: 03/03/2024 20:19 Discharge Plan Discharge Stand Alone Forms: Portal Instructions Chief Complaint: Syncope Clinical Impression: Facial contusion Patient Disposition: Home, Self-Care Time of Disposition Decision: 20:26 Condition: Good Mode of Transportation: Private Vehicle Prescriptions / Home Meds: No Action Kerendia 20 mg tablet 20 mg PO DAILY insulin aspart U-100 [Novolog U-100 Insulin aspart] 100 unit/mL solution 1 sliding scale dose subcut USEASDIRECTD Trulicity 0.75 mg/0.5 mL pen injector 0.75 mg subcut QWEEK clopidogrel 75 mg tablet 75 mg PO QDAY albuterol sulfate 90 mcg/actuation HFA aerosol inhaler 2 puff INHALATION Q6H PRN (Reason: shortness of breath or wheezing) atorvastatin 20 mg tablet 20 mg PO .QHS dapagliflozin propanediol [Farxiga] 10 mg tablet 10 mg PO .QD fluticasone propion-salmeterol [Advair Diskus] 250-50 mcg/dose blister with device 1 inh INHALATION .QD hydroxyzine HCl 50 mg tablet 50 mg PO Q8H PRN (Reason: itching) insulin glargine [Lantus Solostar U-100 Insulin] 100 unit/mL (3 mL) insulin pen 30 unit SUBCUT BID losartan-hydrochlorothiazide 50-12.5 mg tablet 1 tab PO DAILY ondansetron 4 mg tablet,disintegrating 4 mg PO Q8H PRN (Reason: nausea and vomiting) pantoprazole 40 mg tablet,delayed release (DR/EC) 40 mg PO QDAY prazosin 1 mg capsule 1 mg PO QDAY pregabalin 100 mg capsule 100 mg PO Q8H Print Language: Swedish Instructions: Facial Contusion (ED) Referrals: [facility] [Primary Care Provider] - 1 week
== END 2024-03-03 20:48 | disposition home or self-care (01) ==
PROVIDERS: Emergency Medicine Emergency Medical Services; Emergency Provider Emergency Medicine
DX: S00.83XA Contusion of other part of head, initial encounter (principal); W22.8XXA Striking against or struck by other objects, initial encounter
CPT/HCPCS: 36415; 70450; 70486; 82948; 99284